=== PATIENT | female | born 1970 | race Caucasian/White ===

== ENCOUNTER → 2017-10-24 08:00 | Outpatient (CLI) | payer OTHER, SELFPAY ==
--- NOTE | 2017-10-24 08:06 | US_ITS ---
STUDY: ABDOMINAL ULTRASOUND - RIGHT UPPER QUADRANT REASON FOR VISIT: Female, 47 years old. Fatty infiltration of the liver. TECHNIQUE: Ultrasound evaluation of the right upper quadrant was performed with real-time and static edwards-scale imaging. TECHNICAL QUALITY: Adequate. COMPARISON: Comparison is made with prior study dated October 16, 2014. FINDINGS: Liver: The liver measures 15 point cm. There is increased echogenicity consistent with fatty infiltration. The bile ducts are within normal limits. There is hepatic color flow. The direction of portal flow is hepatopetal. There is no demonstrated mass lesion. Gallbladder: Normal distended gallbladder. The gallbladder wall measures 3.0 mm. There is a negative sonographic Todd's sign. There is no pericholecystic fluid. There are no gallstones. Common Bile Duct (C.B.D.): The common bile duct measures 3.9 mm. Pancreas: There is nonvisualization of the pancreas due to overlying bowel gas. Right Kidney: Normal size of the right kidney. The right kidney measures 10.9 cm x 6.0 cm x 5.1 cm. Normal renal cortex. The right cortex measures 1.2 cm. There is a 1.2 cm x 1.1 cm x 1.2 cm renal cyst. There is no right hydronephrosis. US/Liver IMPRESSION: Fatty infiltration of the liver. Electronically Signed: Adin Marshall MD at 15:26 EDT Tel [phone], Service support ,
--- NOTE | 2017-10-24 08:06 | US_ITS ---
STUDY: THYROID ULTRASOUND REASON FOR EXAM: Female, 47 years old. History of thyroid nodule. TECHNIQUE: Ultrasound evaluation of the thyroid was performed with real-time and static edwards-scale imaging. COMPARISON: Comparison is made with prior study dated September 08, 2016 and June 05, 2015. FINDINGS: RIGHT LOBE: The right lobe of the thyroid gland is enlarged and measures 6.4 cm x 2.3 cm x 2.1 cm. There is a heterogeneous echotexture. There is a 1.1 cm x 0.9 cm x 0.9 cm hypoechoic solid nodule in the midportion of the right lobe. LEFT LOBE: The left lobe of the thyroid gland is enlarged and measures 5.0 cm x 2.4 cm x 1.7 cm. There is a heterogeneous echotexture. There is a 1.9 cm x 1.3 cm x 0.8 cm solid nodule in the upper pole this is unchanged. ISTHMUS: The isthmus measures 5.0 mm. The regional lymph nodes are normal. US/Thyroid IMPRESSION: Enlargement of the thyroid gland. Heterogeneous echotexture. Stable bilateral thyroid nodule. Electronically Signed: Adin Marshall MD at 15:28 EDT Tel [phone], Service support ,
== END ==
PROVIDERS: Family Provider Internal Medicine; PCP Internal Medicine; Visit Provider Internal Medicine
DX: E04.1 Nontoxic single thyroid nodule (principal); K76.0 Fatty (change of) liver, not elsewhere classified
CPT/HCPCS: 76536; 76705

== ENCOUNTER 2018-02-26 22:27 | Emergency (ER) | payer OTHER, SELFPAY ==
[2018-02-26 22:29] VITALS: BP 136/89; PULSE 60; RESP 15; TEMP 36.8; O2SAT 98; BMI 29.9
[2018-02-26 22:51] LABS: Bacteria 0 SEEN /hpf (None Seen); Mucous, Urine 0 SEEN /hpf (<or=2+); Red Blood Cells-Urine 0 SEEN /hpf (0-5)
[2018-02-26 22:53] LABS: Color, Urine Yellow (Yellow); Glucose, Dipstick Normal (Normal); Ketone-Dipstick 5 mg/dl (Negative); Leukocyte Esterase-Dipstick 25 /ul (Negative); Nitrite-Dipstick Negative (Negative); Occult Blood-Urine 150 /ul (Negative); Protein-Dipstick 15 mg/dl (Negative); Specific Gravity, Urine 1.015 (1.002-1.030); Urine Bilirubin Dipstick Negative (Negative); Urine Clarity Clear (Clear); Urine Urobilinogen 1 mg/dl (Normal); Urine pH 6.5 (5.0 - 8.0)
[2018-02-26 23:05] LABS: Squamous Epithelial Cells - UA 5-10 SEEN /hpf (5-10); White Blood Cells 0-5 SEEN /hpf (0-5)
[2018-02-26 23:55] LABS: Pregnancy, Serum, hCG Quali. NEGATIVE Negative (0-9 Nonpreg)
--- NOTE | 2018-02-27 00:07 | CT_ITS ---
STUDY: CT ABDOMEN AND PELVIS WITHOUT CONTRAST REASON FOR EXAM: Female, 47 years old. Bilateral flank pain. RADIATION DOSAGE (If Supplied By Facility): CTDIvol = ( 10.50 ) mGy, DLP = ( 529.75 ) mGycm TECHNIQUE: Transaxial images were obtained from the dome of the diaphragm to the symphysis pubis without oral contrast, and without intravenous contrast. Sagittal and coronal images were reconstructed. Individualized dose optimization techniques were used for this CT. COMPARISON: July 31, 2013. Right upper quadrant ultrasound October 24, 2017. FINDINGS: The visualized lung bases are unremarkable. The visualized portions of the heart are within normal limits. Small hiatal hernia. Normal liver. The liver demonstrates normal attenuation. CT is more accurate and less subjective than ultrasound for identifying hepatic steatosis. The dome of the right lobe under the hemidiaphragm not included on the study. Normal gallbladder and extrahepatic biliary system. Normal spleen. Normal pancreas. Normal bilateral adrenal glands. Scattered 1 to 2 mm nonobstructing renal calculi mid pole of both kidneys. Normal visualized stomach. Normal small intestine. Normal colon. The appendix is well visualized and appears normal. Normal abdominal aorta. Normal inferior vena cava. Normal retroperitoneum. No intra-abdominal free air. Normal urinary bladder. Uterus grossly normal. No adnexal masses seen. Normal abdominal wall. Normal osseous structures. CT/Abdomen/Pelvis without Cont IMPRESSION: Very small bilateral nonobstructing renal calculi. Normal liver without evidence of fatty alteration. Dome of the right lobe not included. Small hiatal hernia. Electronically Signed: Lamin Ly MD at 2:41 EDT , Service support ,
[2018-02-27 00:25] LABS: Absolute Lymphocyte Count 3.71 X10^3/ul (0.83-4.51); Absolute Neutrophil Count 4.4 X10^3/uL (2.0-7.7); Basophil# 0.05 X10^3/uL; Basophil% 0.5 % (0-1); Eosinophil# 0.23 X10^3/uL; Eosinophils% 2.5 % (0-5); Hematocrit 33.3 % (37-47); Hemoglobin 10.3 g/dl (12.0-15.0); Lymphocyte # 3.71 X10^3/ul (4.0); Lymphocyte % 40.5 % (19-41); Mean Corp Hgb Conc 30.9 g/gl (32-36); Mean Corpuscular Hgb 23.2 pg (27.0-32.0); Mean Platelet Vol. 10.5 fl (6.2-12.0); Monocyte# 0.78 X10^3/uL; Monocyte% 8.5 % (0-10); Neutrophil # 4.37 X10^3/uL (2.7-7.7); Neutrophil % 47.8 % (47-70); Platelet Count 327 K/mm3 (150-450); RBC Distribution Width SD 47.7 fl (35.1-43.9); Red Blood Count 4.44 M/mm3 (4.2-5.4); White Blood Count 9.2 K/mm3 (4.4-11.0)
[2018-02-27 00:26] LABS: POSITIVE COUNT NO; POSITIVE DIFFERENTIAL NO; POSITIVE MORPHOLOGY NO
[2018-02-27 00:27] LABS: Anion Gap 8 (5-15); BUN 18 mg/dL (7-18); BUN/Creat Ratio 23.3 RATIO (10-20); Calcium,Total 8.2 mg/dL (8.5-10.1); Chloride 106 mmol/L (98-107); Creatinine, Serum 0.77 mg/dL (0.55-1.02); EST Glomerular Filtration Rate 85 mL/min (>60); Est Glom Filt Rate - Afr Amer 103 mL/min (>60); Estimated Creatinine Clearance 98.72 ml/min; Glucose 101 mg/dL (74-106); Potassium 4.3 mmol/L (3.5-5.1); Sodium Level 139 mmol/L (136-145)
[2018-02-27] MEDS: Ondansetron 4 MG/2 ML Vial IV (00:40)
[2018-02-27] MEDS: 0.9% Normal Saline 1,000 ML 250 ML IV (00:40)
[2018-02-27] MEDS: Ketorolac 30 MG/ML Syringe IV (00:40)
[2018-02-27 00:41] VITALS: RESP 14
[2018-02-27] MEDS: Morphine 4 MG/ML Syringe IV (01:14)
[2018-02-27] MEDS: HYDROmorphone 0.5 MG/0.5 ML SYRINGE IV (02:43)
--- NOTE | 2018-02-27 02:49 | ED.DCSUM_ITS ---
- ER Visit Summary Date of Service: 02/27/18 Chief Complaint: Flank pain History of Present Illness: The patient is a 47 F with bilateral flank pain, right worse than left over the past several days. Patient states she has had some mild dysuria and hematuria. She has had some chills but no fever. She does have a history of kidney stones. Physical Examination: Vital signs are unremarkable. Patient is sitting upright in bed no acute distress. Head neck examination is unremarked Heart is regular rate and rhythm. Lung sounds are clear. Abdomen is soft with no focal tenderness. Back examination was no CVA tenderness. She does have reproducible tenderness in the bilateral lower lumbar paraspinals. Test Results: CBC and chemistry studies are significant only for hemoglobin 10.3. Urinalysis shows 150 blood on macroscopic examination, but 0 RBCs on microscopic exam. Patency test is negative. CT flank shows very small bilateral nonobstructing renal calculi. Small hiatal hernia is noted. Emergency Department Course and Treatment: Patient was given Toradol, morphine, followed by dose of Dilaudid. Test results are discussed with her at length. She may have recently passed a stone, but this time I see no sign of obstructing stone or hydronephrosis. Should be treated with analgesics and will follow up with Dr. Flores as needed. Treatment Plan: [] Disposition: Discharge Impression: Flank pain, uncertain etiology This note was generated with [employer] dictation software. It may contain incorrect words, spelling, and punctuation that were not noted in review of the chart prior to signing ED Disposition - Plan for ED Patient: Disposition: Home or Assisted Living Chief Complaint: Flank Pain Instructions: ED Flank Pain Uncertain Cause Prescriptions: Hydrocodone Bitart/Apap 5-325 [[place] 5MG-325MG] 1 tablet PO Q4H PRN PRN 2 Days # 10 tablet PRN Reason: Pain Ketorolac [Toradol] 10 mg PO Q6H PRN #14 tablet PRN Reason: Pain Referrals: Diana Watt DO [Primary Care Provider] - Laureano Flores MD [STAFF PHYSICIAN] - As Needed
--- NOTE | 2018-02-27 02:49 | ED.DEP ---
ED Disposition - Plan for ED Patient: Disposition: Home or Assisted Living Chief Complaint: Flank Pain Instructions: ED Flank Pain Uncertain Cause Prescriptions: Hydrocodone Bitart/Apap 5-325 [[place] 5MG-325MG] 1 tablet PO Q4H PRN PRN 2 Days #10 tablet PRN Reason: Pain Ketorolac [Toradol] 10 mg PO Q6H PRN #14 tablet PRN Reason: Pain Referrals: Diana Watt DO [Primary Care Provider] - Laureano Flores MD [STAFF PHYSICIAN] - As Needed
[2018-02-27 03:05] VITALS: BP 121/61; PULSE 60; RESP 15; O2SAT 95
== END 2018-02-27 03:06 | disposition home or self-care (01) ==
PROVIDERS: Emergency Provider Emergency Medicine; Family Provider Internal Medicine; PCP Internal Medicine
DX: R10.9 Unspecified abdominal pain (principal); N20.0 Calculus of kidney; K44.9 Diaphragmatic hernia without obstruction or gangrene; Z87.442 Personal history of urinary calculi
CPT/HCPCS: 74176; 80048; 81001; 84703; 85025; 96361; 96374; 96375; 99283; J7030; A4216; J2405

== ENCOUNTER → 2019-03-12 07:48 | Outpatient (CLI) | payer OTHER, SELFPAY ==
--- NOTE | 2019-03-12 07:51 | US_ITS ---
STUDY: THYROID ULTRASOUND REASON FOR EXAM: Female, 48 years old. Nodule TECHNIQUE: Ultrasound evaluation of the thyroid was performed with real-time and static edwards-scale imaging. COMPARISON: October 24, 2017 ultrasound thyroid FINDINGS: RIGHT LOBE: The right lobe of the thyroid gland measures 6.0 x 2.1 x 2.0 cm. There is a heterogeneous echotexture. There are multiple small nodules seen throughout the right side thyroid gland. There is a avascular dominant-appearing nodule that measures 7.2 x 6.3 x 7.7 mm. LEFT LOBE: The left lobe of the thyroid gland measures 5.2 x 1.9 x 1.9 cm cm. There is a heterogeneous echotexture. Multiple small nodules seen throughout the left thyroid gland. There is a larger nodule without significant internal vascularity measuring approximately 9.6 x 5.5 mm. ISTHMUS: The isthmus measures 5.7 mm. . The regional lymph nodes are normal. Compared to prior study there is little interval change. The right lower hypoechoic nodule and area is stable. On the left side there is a measurement of 1.1 x 0.5 cm which is also similar to today's study. US/Thyroid IMPRESSION: Stable thyroid goiter with multiple small nodules with measurements of the most apparent small nodules or areas that are stable since prior study. Electronically Signed: Leandra Ibarra MD at 16:59 EDT Tel , Service support ,
--- NOTE | 2019-03-12 07:51 | US_ITS ---
STUDY: ABDOMINAL ULTRASOUND - RIGHT UPPER QUADRANT REASON FOR VISIT: Female, 48 years old fatty liver TECHNIQUE: Ultrasound evaluation of the right upper quadrant was performed with real-time and static edwards-scale imaging. TECHNICAL QUALITY: Adequate. COMPARISON: February 27, 2018 CT scan abdomen and pelvis, October 16, 2014 right upper quadrant ultrasound. FINDINGS: Liver: The liver measures 18.2 cm. There is minimal increased echogenicity consistent with fatty infiltration. The bile ducts are within normal limits. There is hepatic color flow. The direction of portal flow is hepatopetal. There is no demonstrated mass lesion. Gallbladder: Normal distended gallbladder. The gallbladder wall measures 2.0 mm. There is a negative sonographic Todd's sign. There is no pericholecystic fluid. There are no gallstones. Common Bile Duct (C.B.D.): The common bile duct measures 3.6 mm. Pancreas: Normal size of the head, of the pancreas. There is normal echogenicity of the pancreas. There is no demonstrated pancreatic mass or cyst. The body and tail of pancreas obscured. Right Kidney: Normal size of the right kidney. The right kidney measures 11.0 x 6.0 x 5.7 cm. Normal renal cortex. The right cortex measures 1.6 cm. There is a stable right renal cyst measuring 1.3 x 0.9 x 1.0 cm. There is no right hydronephrosis. Is visualized 4 x 5 x 4 mm calcification. US/Liver IMPRESSION: Mildly enlarged liver. Minimal evidence of hepatic steatosis. 4 mm stone right kidney, no evidence of hydronephrosis. Several right renal cysts. No evidence of gallstones or evidence of cholecystitis. Electronically Signed: Leandra Ibarra MD at 17:52 EDT Tel , Service support ,
--- NOTE | 2019-03-12 07:52 | BI_ITS ---
MAMMOGRAPHY - BILATERAL SCREENING REASON FOR EXAM: Female, 48 years old. Routine annual screening examination. PERTINENT HISTORY: Mother with breast cancer. Aunt with breast cancer. TECHNIQUE: Digital bilateral breast faith (3D mammographic acquisition) in the CC and MLO projections. 2-D mediolateral oblique (MLO) and craniocaudad (CC) views of both breasts were obtained. CAD: Full Field Digital Mammography with Computer Added Detection was performed. COMPARISON: Comparison is made with prior study dated September 21, 2016 and August 06, 2014. FINDINGS: Breast Composition: The breasts are heterogeneously dense, which may obscure small masses. There are no dominant masses or suspicious calcifications. No other significant abnormalities are identified. There has been no significant change since the prior study. BI/SCREEN MAMM (CAD) W/FAITH BILAT IMPRESSION: Stable bilateral screening mammogram. Yearly follow-up mammogram recommended. (A) ASSESSMENT CATEGORY: BIRADS Category 1: Negative. A letter regarding these results will be sent to the patient by the facility within 30 days. Approximately 10% of breast cancers are not detected by mammography. A normal mammogram should not delay biopsy of a clinically suspicious abnormality. [id number] Electronically Signed: Adin Marshall, at 12:32 EDT , Service support ,
== END ==
PROVIDERS: Family Provider Internal Medicine; PCP Internal Medicine; Referring Provider Internal Medicine; Visit Provider Internal Medicine
DX: E04.1 Nontoxic single thyroid nodule (principal); K76.0 Fatty (change of) liver, not elsewhere classified; Z12.31 Encounter for screening mammogram for malignant neoplasm of breast
CPT/HCPCS: 76536; 76705; 77063; 77067

== ENCOUNTER → 2019-04-12 11:19 | Outpatient (CLI) | payer OTHER, SELFPAY ==
--- NOTE | 2019-04-12 11:20 | US_ITS ---
STUDY: RENAL ULTRASOUND - COMPLETE REASON FOR EXAM: Female, 48 years old. Renal cyst. TECHNIQUE: Ultrasound evaluation of the kidneys was performed with real-time and static earl-scale imaging. COMPARISON: Comparison is made with prior examination dated March 12, 2019. FINDINGS: RIGHT KIDNEY: Normal location of the right kidney, which is normal in size. The right kidney measures 11.1 cm x 5.7 Sal by 5.6 cm. There is a normal cortex of the right kidney. The renal cortex measures 1.7 cm. 2 renal cysts are seen. The larger measures 1.0 cm x 0.9 cm x 1 cm. There are no right renal calculi. There is an extra-renal pelvis of the right kidney. There is no distention of the renal calyces. DISTAL RIGHT URETER: There is non-visualization of the distal right ureter. There is no demonstrated right ureterovesical junction calculus. There is a visualized right ureteral jet. LEFT KIDNEY: Normal location of the left kidney, which is normal in size. The left kidney measures 13.2 cm x 4.8 cm x 5.4 cm. There is a normal cortex of the left kidney. The renal cortex measures 1.7 cm. There is a 1.8 cm x 1.4 cm x 1.8 cm cyst. There are no left renal calculi. There is no left hydronephrosis. DISTAL LEFT URETER: There is non-visualization of the distal left ureter. There is no demonstrated left ureterovesical junction calculus. There is a visualized left ureteral jet. BLADDER: The distended urinary bladder has a volume of 342 ml. There is a normal wall thickness of the distended urinary bladder. There is no demonstrated mass within the urinary bladder. There are no demonstrated bladder calculi. US/Kidney and Bladder IMPRESSION: Bilateral renal cysts. Right extrarenal pelvis. Electronically Signed: Adin Marshall, at 10:01 EDT , Service support ,
== END ==
PROVIDERS: Family Provider Internal Medicine; PCP Internal Medicine; Referring Provider Internal Medicine; Visit Provider Internal Medicine
DX: Q61.02 Congenital multiple renal cysts (principal)
CPT/HCPCS: 76770

== ENCOUNTER → 2019-08-20 08:10 | Outpatient (CLI) | payer OTHER, SELFPAY ==
--- NOTE | 2019-08-20 08:25 | RAD_ITS ---
STUDY: X-RAY - ESOPHAGUS (BARIUM SWALLOW) WITH FLUOROSCOPY REASON FOR EXAM: Female, 49 years old. OROPHARYNGEAL DYSPHAGIA TECHNIQUE: 22 view(s) of the esophagus were obtained following swallowing of barium. FLUOROSCOPY TIME (if supplied): (0:34) minutes/seconds COMPARISON: None. FINDINGS: There is no demonstrated esophageal foreign body. There is no demonstrated stricture or mucosal abnormality. Normal gastroesophageal junction, without a demonstrated hiatal hernia. The patient ingested a 12 mm tablet of barium without difficulty. Normal visualized aortic arch and descending thoracic aorta. Normal visualized pulmonary parenchyma. Normal visualized osseous structures of the thorax. RAD/Esophagus Single Contrast IMPRESSION: Normal plain film x-ray examination (barium swallow) of the esophagus. Electronically Signed: Adin Marshall, at 14:53 EDT , Service support ,
== END ==
PROVIDERS: PCP Internal Medicine; Referring Provider Internal Medicine; Visit Provider Internal Medicine
DX: R13.12 Dysphagia, oropharyngeal phase (principal)
CPT/HCPCS: 74220

== ENCOUNTER 2019-08-23 06:55 | Day surgery (SDC) | payer OTHER, SELFPAY ==
[2019-08-22 08:55] VITALS: BMI 29.9
--- NOTE | 2019-08-22 09:03 | HP_ITS ---
Intake Vital Signs 08/22/19 BMI 29.9 08/22/19 Height 5 ft 10.25 in 08/22/19 Weight: 202 lb 8 oz 08/22/19 BMI 28.8 08/22/19 BP 131/80 H 08/22/19 Blood Pressure Location Rt brachial 08/22/19 Position Sitting 08/22/19 Respiration 18 08/22/19 Pulse 80 08/22/19 Pulse Oximetry (%) 99 Intake Visit Reasons: Lipoma Back Chief Complaint: back lump Child And Adolescent Psychologist Required: No Is patient in pain?: No Allergies No Known Allergies Allergy (Verified 08/22/19 08:53) Medications buspirone 15 mg tablet mg PO 08/22/19 [History Confirmed 08/22/19] cholecalciferol (vitamin D3) 2,000 unit chewable tablet 2,000 unit PO DAILY 08/22/19 [History Confirmed 08/22/19] duloxetine 60 mg capsule,delayed release mg PO 08/22/19 [History Confirmed 08/22/19] levothyroxine 50 mcg tablet tab PO 08/22/19 [History Confirmed 08/22/19] naproxen sodium 220 mg capsule 220 mg PO BID PRN 08/22/19 [History Confirmed 08/22/19] trazodone 50 mg tablet tab PO 08/22/19 [History Confirmed 08/22/19] Is last menstrual period known: No Post menopausal: No Patient : No PFSH Medical History Hypothyroid (Acute) Back pain (Acute) GERD (gastroesophageal reflux disease) (Acute) Anxiety (Acute) Surgical History History of lithotripsy (Acute) Family History Mother Heart disease Thyroid disorder Breast cancer Aunt Breast cancer Social History (Updated 08/22/19 @ 09:[address] Henry Fontaine MD) Smoking Status: Never smoker HPI HPI HPI: KERWIN STARKS, is a 49 F who presents to the office today for HPI HPI Surgical H&P: Yes HPI: KERWIN STARKS, is a 49 F who presents to the office today for Painful subcutaneous lesion to her back. Patient has had a lower lump in her lower back area that is been increasing over the last several years. She has had numerous trips down to [place] and has been noticing that pressure on this area has caused increased discomfort. She cannot recall any trauma to the area and nothing is been infected back there. ROS General General: Yes fatigue; no weight change, appetite, colon cancer, breast cancer or weakness HEENT HEENT: Yes difficulty swallowing; no eye injury, eye surgery, swollen glands or hoarseness Endo Endocrine: No thyroid disease, diabetes mellitus, thyroid cancer, Hair loss, heat intolerance or cold intolerance Musc Musculoskeletal: Yes back problems; no arthritis, rheumatoid arthritis, gout or joint pain Cardio Cardiovascular: No murmur, pacemaker, heart disease, atrial fibrillation, high blood pressure, heart attack, heart stent, palpitations, shortness of breat with exertion or chest pain Psych Psychiatric: Yes anxiety; no depression or hearing voices Resp Respiratory: No shortness of breath, No sleep apnea, No cough, No COPD, No asthma, No emphysema, No wheezing Gastro Gastrointestinal: No abdominal pain, No nausea or vomiting, No diarrhea, No constipation, No blood in stool, Yes acid reflux, No hemorrhoids, No ulcers, No gallbladder problem, No black,tarry stools Wilmer Hematologic: No blood thinners, No blood disorders, No bleeding, No anemia, No blood clots Neuro Neurologic: No weakness Exam Const General: no acute distress, well developed, well hydrated Orientation: oriented to person, oriented to place, oriented to time [facility] Head: normocephalic, atraumatic Ears: external ears normal Mouth: moist mucous membranes Eyes Sclera: sclerae normal Pupils: normal by confrontation Neck Neck: no lymphadenopathy noted Neck mass: No Thyroid: thyroid normal, symmetrical Chest Chest palpation & inspection: normal inspection of the chest Resp Effort & Inspection: normal respiratory effort Auscultation: clear to auscultation bilaterally Percussion: percussion normal Cardio Rate: regular rate Rhythm: regular rhythm Heart Sounds: no murmurs GI Palpation: soft, no hepatosplenomegaly, no masses, nontender Rectal Exam: other Other: Rectal exam deferred. Skin Other: Lower back there is a 2-1/2 cm to 3 cm subcutaneous lesion very mobile but right along the midline just to the left side. It does not appear to be subfascial but it is certainly not superficial. It is nontender and shows no signs of infection. Extrem General: normal to inspection, no clubbing, cyanosis or edema Assessment & Plan Problems 1. Lesion of subcutaneous tissue L98.9 Plan My plan will be to excise this in the OR. Plan to do an excision of Lower back subcutaneous neoplasm. Reviewed the procedure with the patient including risks, including but not limited to infection, bleeding, paresthesia of skin near the excision and seroma. All questions were answered. Coding Level of Care Code Off vis,new,level 3 Diagnoses Lesion of subcutaneous tissue L98.9 08/22/19 0903 <Electronically signed by Henry bennett MD> Date _ Henry Fontaine MD I have re-examined the patient. There are no clinical changes since date of exam.
[2019-08-23] VITALS (7 sets, daily range): BP systolic 125–137; BP diastolic 71–81; PULSE 66–72; RESP 14–18; TEMP 36.6–37; O2SAT 96–100; BMI 29.0
[2019-08-23 07:31] LABS: Internal QC Validated? YES +Cl - CLEAR BKGD; Pregnancy, Urine Negative Negative
--- NOTE | 2019-08-23 07:34 | PCM.OPRPT ---
Problem List (1) Lesion of subcutaneous tissue Status: Acute Report of Operation Date of Procedure: 08/23/19 Pre-Operative Diagnosis: Lesion of subcutaneous tissue back Post-Operative Diagnosis: Same Surgery/Procedure Performed:: Excision of a 2 cm subcutaneous lesion to back Type of Anesthesia:: Local MAC Anesthesiologist: Kaden Dasilva Specimen's removed: 2-1/2 cm subcutaneous lesion to back Estimated Blood Loss (mL): < 25 cc Fluids Replaced: 500 cc LR Description of Procedure: Patient was brought in the operating room. Placed in the prone position. Under excellent MAC anesthetic the back was sterilely prepped draped in usual fashion. Local was injected. A transverse incision was made over the lower back area. Dissection down through the subcutaneous tissues all the way down to the paraspinous muscles the fatty lesion was identified. I removed it in its entirety. And sent it to pathology for permanent sectioning. Deep dermal stitches of 3-0 Vicryl then a running 4-0 Monocryl in the skin. Steri-Strips were applied sterile dressings were applied and the patient tolerated the procedure well. - Admit VTE Documentation VTE Present on Admission: No VTE Mechan Device Prophylaxis: SCD's VTE Pharm Prophylaxis ordered?: No Reason prophylaxis not ordered:: Treatment Not Indicated
[2019-08-23] MEDS: Lactated Ringers 1,000 ML 100 ML IV (07:41)
--- NOTE | 2019-08-23 08:35 | PCM.DC.GS ---
Discharge Diet: Light diet - advance as tolerated - If you have questions about your diet instructions, please talk to your doctor. Discharge Activity: May Not Drive - for 1 week or while taking narcotic pain medicine. May shower in (days): 1 Lifting Restrictions: 10 pounds Call your doctor if your incision/area has: Continuous Slow Oozing, Sudden Increased Bleeding, Increased Pain/ Swelling, Increased Redness, Foul Smelling Discharge Call your doctor if you observe: Fever of 101 or Higher Suture Line Care: Avoid Pulling/Pushing, Avoid Pinching/Bending Additional Dressing/Incision Instructions:: Change or remove dressing in 4 days. Leave steri-strips in place for 1 week. Allergies/Adverse Reactions: Allergies No Known Allergies Allergy (Verified 08/22/19 09:32) Medications to take at Discharge Naproxen Sodium [Aleve] 220 mg PO PRN PRN 08/22/19 buspirone 15 mg tablet 15 mg PO PRN PRN 08/22/19 duloxetine 60 mg capsule,delayed release 60 mg PO DAILY 08/22/19 levothyroxine 50 mcg tablet 50 tab PO DAILY 08/22/19 trazodone 50 mg tablet 50 tab PO QHS 08/22/19 Oxycodone HCl/Acetaminophen [Percocet 5/325] 1 - 2 tab PO Q4H PRN PRN 6 Days #30 tab 08/23/19 The following prescriptions were given: Oxycodone HCl/Acetaminophen [Percocet 5/325] 1 - 2 tab PO Q4H PRN PRN 6 Days #30 tab PRN Reason: Pain Transmission Status: Received by [facility] Primary Care Physician: Diana Watt DO [Primary Care Provider] - Test Results: Test results from this visit will be discussed in further detail at your follow-up appointment, if applicable. Please Follow Up With: Julieta Antonio PA-C - [phone] When: Call to make an appointment to be seen in about 10 days.
[2019-08-23] MEDS: Cefazolin 2 GM in 0.9% Normal Saline 100 ML IV (08:41)
[2019-08-23] MEDS: Bupivacaine Mpf 0.5% 30 ML VIAL (08:50)
--- NOTE | 2019-08-23 09:00 | LIP_PTH ---
PATIENT: KERWIN STARKS LOC: [facility] [place] U#:[id number] AGE/SX: 49/F ROOM: RE08/23/[address]: Dr. Henry Fontaine MD : 1970 BED: DIS: 08/23/2019 SPEC #: [id number] RECD: 08/23/19 10:23 STATUS: JUDITH REMendel #: [id number] MALLY: 08/23/19 09:[address]: Henry Fontaine DEPT: SURGICAL PATHOLOGY RECD BY: Giancarlo Canales ENTERED: 08/23/19 10:32 SP TYPE: LIPOMA OTHR DR: Dr. Diana Watt, DO Tissues: Back, NOS Procedures: Surgery Specimen Level III HEADER OPERATION: Excision of lower back subcutaneous neoplasm PRE-OP DIAGNOSIS: Lesion of subcutaneous tissue L98.9 TISSUE SUBMITTED: Lipoma of back MICROSCOPIC DIAGNOSIS Lipoma of back, excision: Mature adipose tissue, consistent with lipoma. SJ:braydon 08/24/19 MICROSCOPIC DESCRIPTION Slides are reviewed. GROSS DESCRIPTION Received in fixative is one container labeled with the patient's name and designated lipoma of back. The specimen consists of an ovoid fragment of yellow fatty tissue measuring 2.5 x 2.2 c 1 cm. Serial sections reveal homogenous yellow cut surfaces with areas of cyst formation, necrosis of myxoid change. Parent Coach sections are submitted in one cassette. / AM:braydon 08/23/19 TC:1 CPT: 74853
== END 2019-08-23 10:05 | disposition home or self-care (01) ==
LOC: SDC 06:56 → AC 06:57
PROVIDERS: Anesthesiology; PCP Internal Medicine; Referring Provider Surgery; Visit Provider Surgery
PROC: (CPT 11402; principal; 2019-08-23 08:45)
DX: L98.9 Disorder of the skin and subcutaneous tissue, unspecified (principal); E03.9 Hypothyroidism, unspecified; K21.9 Gastro-esophageal reflux disease without esophagitis; F41.9 Anxiety disorder, unspecified; Z86.2 Personal history of diseases of the blood and blood-forming organs and certain disorders involving the immune mechanism; Z79.899 Other long term (current) drug therapy
CPT/HCPCS: 11402; 81025; 88304; J7120

== ENCOUNTER → 2020-11-20 07:30 | Outpatient (CLI) | payer OTHER, SELFPAY ==
[2019-08-23 07:21] VITALS: BMI 29.0
--- NOTE | 2020-11-20 07:35 | US_ITS ---
STUDY: ABDOMINAL ULTRASOUND - RIGHT UPPER QUADRANT REASON FOR VISIT: Female, 50 years old FATTY LIVER TECHNIQUE: Ultrasound evaluation of the right upper quadrant was performed with real-time and static edwards-scale imaging. TECHNICAL QUALITY: Adequate. COMPARISON: Comparison is made with prior examination dated 03/12/2019. FINDINGS: Liver: The liver is mildly enlarged and measures 18.9 cm. There is increased echogenicity consistent with fatty infiltration. The bile ducts are within normal limits. There is hepatic color flow. The direction of portal flow is hepatopetal. There is no demonstrated mass lesion. Gallbladder: Normal distended gallbladder. The gallbladder wall measures 1 mm. There is a negative sonographic Todd''s sign. There is no pericholecystic fluid. There are no gallstones. Common Bile Duct (C.B.D.): The common bile duct measures 5 mm. Pancreas: Normal size of the head, body and tail of the pancreas. There is normal echogenicity of the pancreas. There is no demonstrated pancreatic mass or cyst. Right Kidney: Normal size of the right kidney. The right kidney measures 11.1 cm x 5.7 cm x 4.6 cm. Normal renal cortex. The right cortex measures 1.1 cm. There is a 1.2 cm x 1 cm by 1.1 cm renal cyst. This is unchanged. There is evidence of a 4 mm x 2 mm nonobstructive calculus. There is no right hydronephrosis. US/Liver IMPRESSION: Mild hepatomegaly and fatty infiltration of the liver. Stable small right renal cyst in the right nonobstructive intrarenal calculus. Electronically Signed: Adin Marshall MD at 9:46 EDT , Service support ,
--- NOTE | 2020-11-20 07:35 | BI_ITS ---
MAMMOGRAPHY - BILATERAL SCREENING REASON FOR EXAM: Female, 50 years old. Routine annual screening examination. PERTINENT HISTORY: Mother with breast cancer. Aunt with breast cancer. TECHNIQUE: Digital bilateral breast faith (3D mammographic acquisition) in the CC and MLO projections. 2-D mediolateral oblique (MLO) and craniocaudad (CC) views of both breasts were obtained. CAD: Full Field Digital Mammography with Computer Added Detection was performed. COMPARISON: Comparison is made with prior study dated 03/12/2019 and 09/21/2016. FINDINGS: Breast Composition: The breasts are heterogeneously dense, which may obscure small masses. There are no dominant masses or suspicious calcifications. Stable 7.4 mm well-defined nodule in the axillary region of the right breast. This most likely represents a small lymph node. No other significant abnormalities are identified. There has been no significant change since the prior study. BI/SCRN MAMM (CAD)W/FAITH BILAT IMPRESSION: Stable bilateral screening mammogram. Yearly follow-up mammogram recommended. (A) ASSESSMENT CATEGORY: BIRADS Category 2: Benign. A letter regarding these results will be sent to the patient by the facility within 30 days. Approximately 10% of breast cancers are not detected by mammography. A normal mammogram should not delay biopsy of a clinically suspicious abnormality. [id number] Electronically Signed: Adin Marshall MD at 8:53 EDT , Service support ,
--- NOTE | 2020-11-20 07:35 | US_ITS ---
STUDY: THYROID ULTRASOUND REASON FOR EXAM: Female, 50 years old. NODULE TECHNIQUE: Ultrasound evaluation of the thyroid was performed with real-time and static edwards-scale imaging. COMPARISON: Comparison is made with prior study dated 03/12/2019. FINDINGS: RIGHT LOBE: The right lobe of the thyroid gland is enlarged and measures 5.9 cm x 2.2 cm x 1.9 cm. There is a heterogeneous echotexture. Several small nodules are seen. The largest nodule is in the mid lobe of the thyroid measuring 7 mm x 8 mm x 5 mm. This is essentially unchanged. LEFT LOBE: The left lobe of the thyroid gland is enlarged and measures 5.3 cm x 1.9 cm x 1.8 cm. There is a heterogeneous echotexture. Multiple small nodules are seen. The largest nodule measures 4 mm x 6 mm x 1 mm. This has decreased in size. ISTHMUS: The isthmus measures 5 mm. The regional lymph nodes are normal. US/Thyroid IMPRESSION: Thyroid enlargement. Heterogeneous appearance of both lobes of the thyroid gland. Subcentimeter nodules seen in both lobes of the thyroid gland. Electronically Signed: Adin Marshall MD at 10:46 EDT , Service support ,
== END ==
PROVIDERS: PCP Internal Medicine; Referring Provider Internal Medicine; Visit Provider Internal Medicine
DX: Z12.31 Encounter for screening mammogram for malignant neoplasm of breast (principal); E04.1 Nontoxic single thyroid nodule; K76.0 Fatty (change of) liver, not elsewhere classified
CPT/HCPCS: 76536; 76705; 77063; 77067

== ENCOUNTER 2021-06-02 14:21 | Outpatient (CLI) | payer OTHER, SELFPAY ==
[2021-06-02 14:41] VITALS: BP 146/80; PULSE 61; RESP 16; TEMP 36.9; O2SAT 98; BMI 27.9
[2021-06-02] MEDS: 0.9% Saline Lock 10 ML Syringe IV (14:44)
[2021-06-02 15:42] VITALS: BP 136/75; PULSE 75; RESP 16; TEMP 37; O2SAT 98
[2021-06-02 16:23] VITALS: BP 128/76; PULSE 62; RESP 16; TEMP 36.8; O2SAT 100
== END 2021-06-02 16:34 | disposition home or self-care (01) ==
LOC: MS3OUT 14:21 → MS3 14:22
PROVIDERS: PCP Internal Medicine; Referring Provider Nurse Practitioner Adult Health; Visit Provider Nurse Practitioner Adult Health
DX: Z23 Encounter for immunization (principal); U07.1 COVID-19
CPT/HCPCS: J7050; M0245; Q0245; A4216

== ENCOUNTER 2021-06-10 10:19 | Emergency (ER) | payer OTHER, SELFPAY ==
[2021-06-10 10:20] VITALS: BP 132/81; PULSE 69; RESP 20; TEMP 35.9; O2SAT 100; BMI 27.9
--- NOTE | 2021-06-10 11:20 | ED.VIS.DYS ---
HPI History of Present Illness Chief Complaint: Cough Narrative Narrative: 51-year-old female presenting with cough and shortness of breath. She is status post Covid on day 14. She has had dexamethasone therapy and been placed on azithromycin by her primary care physician Dr. Watt. She also had the monoclonal antibodies on day 9 of symptoms. She states she initially felt better but now has a cough and shortness of breath. Last night she had trouble catching her breath. She denies any chest pain. Patient states that she was doing a televisit however she did not have a home pulse ox. The nurse practitioner who is seeing her wanted to call EMS because she was saying she was short of breath. She elected to have her bring her to the emergency room. She has no history of DVT/PE. No risk factors with exception of recent Covid. She does complain of some lower back pain which she believes is from coughing. [facility] Medical History Anxiety Back pain GERD (gastroesophageal reflux disease) Hypothyroid Home Medications duloxetine 60 mg capsule,delayed release 60 mg PO DAILY 08/22/19 [History Last Taken Unknown] levothyroxine 50 mcg tablet 50 tab PO DAILY 08/22/19 [History Last Taken 08/23/19 06:00 50 tab] trazodone 50 mg tablet 50 tab PO QHS 08/22/19 [History Last Taken Unknown] azithromycin [Zithromax] 250 mg PO DAILY 06/02/21 [History Last Taken Unknown] dexamethasone 6 mg PO DAILY 06/02/21 [History Last Taken Unknown] gabapentin 300 mg PO BID 06/02/21 [History Last Taken Unknown] albuterol sulfate [Ventolin HFA] 2 puff INHALATION Q6H PRN #6.7 g 06/10/21 [Rx Last Taken Unknown] promethazine-DM 5 ml PO Q6H PRN #118 ml 06/10/21 [Rx Last Taken Unknown] Allergy/AdvReac Type Severity Reaction Status Date / Time No Known Allergies Allergy Verified 06/10/21 10:31 Family History Mother Heart disease Thyroid disorder Breast cancer Aunt Breast cancer Surgical History History of lithotripsy ROS ROS ED Constitutional Constitutional ED: Denies chills or fever(s) Eyes Eyes: Denies blurry vision or diplopia ENT ENT ED: Denies rhinorrhea or sore throat Cardiovascular Cardiovascular: Denies chest pain or palpitations Respiratory/Chest Respiratory/Chest: Reports cough and dyspnea Gastrointestinal Gastrointestinal: Denies abdominal pain, nausea or vomiting Genitourinary Genitourinary ED: Denies dysuria or hematuria Musculoskeletal Musculoskeletal: Denies arthralgias or myalgias Integumentary Denies abscess or rash Neurologic Neurologic: Denies headache(s) or paresthesias Psychiatric Psychiatric: Denies anxiety or depression EXAM Physical Exam Const Vital Signs: 06/10/21 10:20 Temperature 96.7 F L Temperature Source Temporal Pulse Rate 69 Respiratory Rate 20 H Blood Pressure 132/81 H Blood Pressure Mean 98 Pulse Ox 100 Oxygen Delivery Method Room Air Positive well nourished General Appearance ED: NAD; Negative for pallor HEENT Reports moist mucous membranes atraumatic Eyes PERRL and EOMs intact bilaterally General Eye ED: Negative for pale conjunctiva or scleral icterus Resp normal respiratory effort and clear to auscultation bilaterally Cardio regular rate and regular rhythm Extremity normal to inspection General Extremety ED: Negative for edema or tenderness General Extremity: Negative for edema Neuro CN's II-XII intact bilaterally and no sensory deficits noted Motor Exam: strength 5/5 throughout Psych mental status grossly normal Thought Process: normal thought process Skin General Skin Exam: Negative for jaundice or pallor MDM MDM MDM Narrative Medical decision making narrative: Patient sent in by her primary care physician's nurse practitioner out of concern that she could not see her pulse ox. On arrival patient reports no chest pain. She states she has a cough and some shortness of breath which has been present since he has had Covid. She is not had any new fevers. Her heart rate is 69 and her oxygen saturation is 100. Respiratory rate is 20. She does not look to be in any distress. Lungs are clear to auscultation bilaterally. I had a long discussion with she and her and she feels as if she is doing fine and she does not want any further evaluation. Her was concerned that she might have a pulmonary embolism because he has some knowledge of medicine and her daughter is a nurse at [employer] and told her to make sure that they rule this out. I did offer to do a CTA of the chest if it made her more comfortable however with a heart rate of 69 and an oxygen sat of 100% this would be unlikely especially since he is not significantly tachypneic. She is not having any pleuritic chest pain. The patient herself declined this. Her requested that I give her an albuterol inhaler at home and I did order this as well as cough medicine. Patient was amenable to this plan. She will return as needed for any new or worsening symptoms. Impression: 1. History of COVID-19 Discharge Plan Triage Chief Complaint: Cough ED Provider: Pradeep Redding Dx/Rx/DC Orders Instructions: Coronavirus Disease 2019 (COVID-19): Caring for Yourself or Others Prescriptions: New promethazine-DM 6.25-15 mg/5 mL syrup 5 ml PO Q6H PRN (Reason: cough) Qty: 118 RF: 0 albuterol sulfate [Ventolin HFA] 90 mcg/actuation HFA aerosol inhaler 2 puff inhalation Q6H PRN (Reason: shortness of breath or wheezing) Qty: 6.7 RF: 0 No Action trazodone 50 mg tablet 50 tab PO QHS RF: 0 levothyroxine 50 mcg tablet 50 tab PO DAILY RF: 0 duloxetine 60 mg capsule,delayed release(DR/EC) 60 mg PO DAILY RF: 0 gabapentin 300 mg capsule 300 mg PO BID RF: 0 azithromycin [Zithromax] 250 mg Tablet 250 mg PO DAILY RF: 0 dexamethasone 6 mg Tablet 6 mg PO DAILY RF: 0 Primary Care Provider: Diana Watt Referrals: Diana Watt DO [Primary Care Provider] - Disposition Disposition: Home, Self Care
[2021-06-10 11:38] VITALS: O2SAT 98
== END 2021-06-10 11:51 | disposition home or self-care (01) ==
LOC: ED 11:34
PROVIDERS: Emergency Provider Student in an Organized Health Care Education/Training Program; PCP Internal Medicine
DX: R05.9 Cough, unspecified (principal); R06.02 Shortness of breath; Z86.16 Personal history of COVID-19; E03.9 Hypothyroidism, unspecified; F41.9 Anxiety disorder, unspecified; K21.9 Gastro-esophageal reflux disease without esophagitis; Z79.899 Other long term (current) drug therapy
CPT/HCPCS: 99282

== ENCOUNTER 2021-11-25 13:58 | Outpatient (RCR) | payer OTHER, SELFPAY ==
--- NOTE | 2021-11-25 15:22 | HP.PTEVAL_ITS ---
Patient's Visit Information KERWIN STARKS is a 51 year old F referred to Physical Therapy by Dr. Diana Watt DO with a diagnosis of LBP. Date of Evaluation: 11/25/21 Physical Therapist: Ck Campos PT, Cert MDT, OCS - Visit Plan Frequency: 2x /Week Duration: 4 Weeks Plan: PT INTEREVETIONS REGINA EX'S,PROGRESSION OF DLS ,POSTURAL EX'S AND ACTIVITY MODIFICATION. - Subjective This 51 y/o female presents to physical therapy with low back pain. This has LBP for many years. Seen DR and recommended PT . Patient had no diagnostics in fingers. Patient has had no medication for pain . Patient takes sleep aide at night. Symptoms have been gradually worse. 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 Alleviating rest. Patient denies Bowel/bladder issues . Coughing/sneezing -. Bowel/bladder -. Patient pain affects QOL and function. Patient has had no trauma. Patient has had no diagnostics. SOCIAL: . VOCATION: [employer]. - Pain Bilateral Back Pain Intensity (Out of 10): 8 - Objective POSTURE: increase lumbar lordosis increase thoracic kyphosis. GAIT: reciprocal pattern mild forward posture. PALAPTION: tender LS /buttock. SYMMETRIES: align. MMT: quads/hamstrings 4/5 ,hip flexion 4/5 ,ankle 5/5. FLEXABILITY: hamstrings WFL ,piriformis min. LUMBAR ROM : flexion WFL, extension min loss, side glides min loss. + Signs of muscular endurance test for abdominals - Special Tests L/S Slump test left side: Negative L/S Slump test right side: Negative L/S Left Straight Leg Raise: Negative L/S Right Straight Leg Raise: Negative Lumbar Standing: Flexion - Mechanical Response: No effect Lumbar Standing: Flexion - Symptoms During Testing: Increases Lumbar Standing: Flexion - Symptoms After Testing: No worse Lumbar Standing: Extension - Mechanical Response: No effect Lumbar Standing: Extension - Symptoms During Testing: Increases Lumbar Standing: Extension - Symptoms After Testing: No worse Comments:: ERP Lumbar Standing: Right Side Glides - Mechanical Response: No effect Lumbar Standing: Right Side [place] - Symptoms During Testing: No effect Lumbar Standing: Right Side [place] - Symptoms After Testing: No effect Lumbar Standing: Left Side [place] - Mechanical Response: No effect Lumbar Standing: Left Side [place] - Symptoms During Testing: No effect Lumbar Standing: Left Side [place] - Symptoms After Testing: No effect - Balance/Special Test Scores Oswestry Low Back Score: 15 - Goals Goal 1:: Patient to improve posture/body mechanics 80% of the time. Goal Time Frame: 4-6 Weeks Goal 2:: Patient to demonstrate 60% improvement with function and decrease pain. Goal Time Frame: 4-6 Weeks Goal 3:: Patient to improve lumbar ROM for function of recovery to lift at work. Goal Time Frame: 4-6 Weeks Goal 4:: Patient to improve back oswestry score by 5 points to improve QOL and function. Goal Time Frame: 4-6 Weeks Goal 5:: Patient to perform work demands and housework tasks with min limitations Goal Time Frame: 4-6 Weeks - Rehabilitation Potential Physical Therapy Diagnosis: This patient has lumbar pain with possible derangement ,weakness abdominals with + with muscular endurance, pain with positioning sitting and flexion ,motion testing thus benefit from skilled PT Rehabilitation Potential: Good - Anticipated Interventions Patient/Client Instruction: Educate patient on: Condition, Plan of Care For the Purpose of:: To decrease pain, To increase ROM, To improve muscle performance and motor function, To improve ability to perform ADL's, To increase tolerance to activity/condition/position, To improve ability of physical actions for home/community/work/leisure, To improve health of tissue, To decrease soft tissue restriction, To increase flexibility/ROM, To improve endurance, To prevent re-injury Therapeutic Exercise to Include: Strength training, Body mechanics, Postural t raining, Flexibilty training, Dynamic Lumbar Stabilization For the Purpose of:: To decrease pain, To increase ROM, To improve muscle performance and motor function, To improve ability to perform ADL's, To increase tolerance to activity/condition/position, To improve ability of physical actions for home/community/work/leisure, To increase flexibility/ROM, To reduce risk of recurrence, To prevent re-injury Thank you for the opportunity to evaluate your patient. For Medicare and Medicare HMO plans, please review the plan of care and approve it. It will need to be FAXED BACK to us at [phone] for Medicare purposes. For Medicare only, by signing this I certify the plan of care. Please let me know if there are questions or concerns regarding this plan of care. Physician Signature: Date:
== END 2021-11-25 19:00 | disposition home or self-care (01) ==
LOC: PT 13:58
PROVIDERS: PCP Internal Medicine; Referring Provider Internal Medicine; Visit Provider Internal Medicine
DX: M54.50 Low back pain, unspecified (principal)
CPT/HCPCS: 97110; 97162

== ENCOUNTER → 2021-11-26 | Outpatient (CLI) | payer OTHER, SELFPAY ==
--- NOTE | 2021-11-26 08:00 | US_ITS ---
STUDY: ABDOMINAL ULTRASOUND - RIGHT UPPER QUADRANT REASON FOR VISIT: Female, 51 years old FATTY LIVER TECHNIQUE: Ultrasound evaluation of the right upper quadrant was performed with real-time and static edwards-scale imaging. TECHNICAL QUALITY: Adequate. COMPARISON: None. FINDINGS: Liver: The liver is mildly enlarged and measures 18.1 cm. There is increased echogenicity consistent with mild degree of fatty infiltration. The bile ducts are within normal limits. There is hepatic color flow. The direction of portal flow is hepatopetal. There is no demonstrated mass lesion. Gallbladder: Normal distended gallbladder. The gallbladder wall measures 1.8 mm. There is a negative sonographic Todd''s sign. There is no pericholecystic fluid. There are no gallstones. Common Bile Duct (C.B.D.): The common bile duct measures 3.5 mm. Pancreas: Normal size of the head, body and tail of the pancreas. There is normal echogenicity of the pancreas. There is no demonstrated pancreatic mass or cyst. Right Kidney: Normal size of the right kidney. The right kidney measures 11.4 cm x 6.8 cm x 4 cm. Normal renal cortex. The right cortex measures 1.2 cm. There is a 9 mm x 9 mm x 6 mm cyst. There is no right hydronephrosis. Nonobstructive 4 mm x 3 mm x 3 mm calculus. US/Abdomen Limited IMPRESSION: Mild hepatomegaly and fatty infiltration of the liver. Small right renal cyst and small nonobstructive right intrarenal calculus. Electronically Signed: Adin Marshall MD at 10:27 EDT ,
--- NOTE | 2021-11-26 08:00 | US_ITS ---
STUDY: THYROID ULTRASOUND REASON FOR EXAM: Female, 51 years old. Thyroid nodule. TECHNIQUE: Ultrasound evaluation of the thyroid was performed with real-time and static edwards-scale imaging. COMPARISON: Comparison is made with prior study dated 11/20/2020 03/12/2019. FINDINGS: RIGHT LOBE: The right lobe of the thyroid gland is enlarged measures 5.7 cm x 2 cm x 2.2 cm. There is a heterogeneous echotexture. There is a 6 mm x 7 mm x 5 mm hypoechoic solid nodule in the midpole of the right lobe. LEFT LOBE: The left lobe of the thyroid gland is enlarged and measures 5.4 cm x 2.1 cm x 1.9 cm. There is a heterogeneous echotexture. There is a solid/cystic hypoechoic nodule measuring 1.1 cm x 0.7 cm x 0.3 cm in the midpole. ISTHMUS: The isthmus measures 6 mm. The regional lymph nodes are normal. US/Thyroid IMPRESSION: Enlarged heterogeneous appearance of the thyroid gland with the dominant solid cystic nodule in the midpole of the left lobe measuring 1.1 cm x 0.7 cm x 0.3 cm. Electronically Signed: Adin Marshall MD at 10:44 EDT ,
== END | disposition home or self-care (01) ==
PROVIDERS: PCP Internal Medicine; Referring Provider Internal Medicine; Visit Provider Internal Medicine
DX: E04.1 Nontoxic single thyroid nodule (principal); K76.0 Fatty (change of) liver, not elsewhere classified; R20.2 Paresthesia of skin
CPT/HCPCS: 76536; 76705

== ENCOUNTER 2022-01-25 18:35 | Emergency (ER) | payer OTHER, SELFPAY ==
[2022-01-25 18:36] VITALS: BP 136/89; PULSE 67; RESP 18; TEMP 35.8; O2SAT 97; BMI 27.9
[2022-01-25 18:52] LABS: Mucous, Urine 0 SEEN /hpf (<or=2+)
[2022-01-25 19:04] LABS: Color, Urine Straw (Yellow); Glucose, Dipstick Normal (Normal); Ketone-Dipstick Negative (Negative); Leukocyte Esterase-Dipstick 100 /ul (Negative); Nitrite-Dipstick Negative (Negative); Occult Blood-Urine 250 /ul (Negative); Protein-Dipstick 30 mg/dl (Negative); Urine Bilirubin Dipstick Negative (Negative); Urine Clarity Clear (Clear); Urine Urobilinogen Normal (Normal)
[2022-01-25 19:25] LABS: Absolute Lymphocyte Count 2.84 X10^3/uL (0.83-4.51); Absolute Neutrophil Count 3.9 X10^3/uL (2.0-7.7); Basophil# 0.04 X10^3/uL; Basophil% 0.5 % (0-1); Eosinophil# 0.15 X10^3/uL; Lymphocyte # 2.84 X10^3/ul (0.83-4.51); Lymphocyte % 37.6 % (19-41); Mean Corp Hgb Conc 29.7 g/dL (32-36); Mean Corpuscular Hgb 22.5 pg (27.0-32.0); Mean Corpuscular Volume 75.7 fL (81-99); Mean Platelet Vol. 10.2 fl (6.2-12.0); Monocyte# 0.58 X10^3/uL; Monocyte% 7.7 % (0-10); NRBC Flagged by Analyzer 0 % (0-5); Neutrophil # 3.91 X10^3/uL (2.7-7.7); Neutrophil % 51.8 % (47-70); Platelet Count 366 K/mm3 (150-450); RBC Distribution Width CV 19.3 % (11.6-14.6); RBC Distribution Width SD 51.6 fl (35.1-43.9); Red Blood Count 4.89 M/mm3 (4.2-5.4); White Blood Count 7.6 K/mm3 (4.4-11.0)
[2022-01-25 19:32] LABS: Bacteria 1+ /hpf (None Seen); Red Blood Cells-Urine 10-25 SEEN /hpf (0-5); Squamous Epithelial Cells - UA 0-5 SEEN /hpf (5-10); White Blood Cells 0-5 SEEN /hpf (0-5)
--- NOTE | 2022-01-25 20:06 | CT_ITS ---
INDICATION: right flank pain EXAMINATION: CT ABDOMEN AND PELVIS WITHOUT CONTRAST - CT Abdomen And Pelvis W/O Contrast Injection TECHNIQUE: Helically acquired images were obtained of the abdomen and pelvis without oral or IV contrast. A radiation dose optimization technique was used for this scan. IV Contrast dosage and agent: None. Oral contrast: None. COMPARISON: 06/23/2012 CT abdomen and pelvis. FINDINGS: LOWER CHEST: Lung bases are clear. No cardiomegaly or pericardial effusion. There is a sliding hiatal hernia. LIVER: Homogeneous. No focal mass. GALLBLADDER AND BILIARY TREE: No calcified gallstones. Collapsed gallbladder with no surrounding edema or inflammatory changes. No intra- or extrahepatic biliary ductal dilation. PANCREAS: No focal cystic or solid mass. SPLEEN: Normal size without focal cystic or solid mass. ADRENAL GLANDS: No nodules. KIDNEYS, URETERS and BLADDER: Normal renal size and position. No mass. No hydronephrosis. There are several nonobstructing genitourinary stones the largest of which measures 3 mm mid right kidney. Slightly smaller stones seen in the upper pole right kidney, too other stones. Punctate calcification also seen in the mid upper pole left kidney. Distal ureters cannot be clearly delineated from pelvic vasculature. There is a 3 mm calcification in close proximity to the normal course of the distal right ureter near the ureterovesical vesicle junction on the right and is favored to represent a phlebolith however nonobstructing distal right ureteral stone cannot be completely excluded. No bladder stone. PERITONEUM: No ascites or free air. No other fluid collection. BOWEL: No evidence of acute appendicitis. No abnormally distended bowel loops or air fluid levels. No wall thickening or mass. No focal inflammatory changes. LYMPH NODES: No enlarged mesenteric or retroperitoneal lymph nodes. VESSELS: Aorta is non-dilated. REPRODUCTIVE ORGANS: Normal. ABDOMINAL WALL: No discrete abdominal or pelvic wall hernia. BONES: No lytic or blastic abnormality. CT/Abdomen/Pelvis without Cont IMPRESSION: 3 right and one left nonobstructing renal stones, 3 mm or smaller in size. No hydronephrosis. 3 mm stone in the expected course of the distal right ureter, not clearly delineated in the pelvis, is favored to represent a phlebolith however nonobstructing right ureteral stone is not completely excluded. Correlate clinically for hematuria. Sliding hiatal hernia. Electronically Signed: Matthew Rachel DO at 21:12 EDT ,
--- NOTE | 2022-01-25 20:07 | EDS_ITS ---
HPI History of Present Illness Chief Complaint: Flank Pain Informant: patient Onset/Context/Timing Onset: Days Context: Gradual Onset Current Severity: Moderate Maximum Severity: Moderate Narrative Narrative: Patient presents secondary to right flank pain. Symptoms been ongoing for the past couple days. She denies urinary symptoms. She does have a history of kidney stones. Pain seems to stay in the right lower back and does not wrap into the abdomen at this time. With her prior kidney stone she has required lithotripsy. [facility] Medical History (Updated 01/25/22 @ 22:[address] Morenita Ellis MD) Anxiety Back pain GERD (gastroesophageal reflux disease) Hypothyroid Home Medications duloxetine 60 mg capsule,delayed release 60 mg PO DAILY anxiety 08/22/19 [History Last Taken Unknown] levothyroxine 50 mcg tablet 50 tab PO DAILY thyroid 08/22/19 [History Last Taken 08/23/19 06:00 50 tab] trazodone 50 mg tablet 50 tab PO QHS sleep 08/22/19 [History Last Taken Unknown] azithromycin 250 mg tablet (Zithromax) 250 mg PO DAILY 06/02/21 [History Last Taken Unknown] dexamethasone 6 mg tablet 6 mg PO DAILY 06/02/21 [History Last Taken Unknown] gabapentin 300 mg capsule 300 mg PO BID 06/02/21 [History Last Taken Unknown] albuterol sulfate 90 mcg/actuation aerosol inhaler (Ventolin HFA) 2 puff inhalation Q6H PRN shortness of breath or wheezing #6.7 grams 06/10/21 [Rx Last Taken Unknown] promethazine-DM 6.25 mg-15 mg/5 mL oral syrup 5 ml PO Q6H PRN cough #118 mL 06/10/21 [Rx Last Taken Unknown] hydrocodone-acetaminophen 5-325mg 5mg-325mg 1 tab PO Q6H PRN pain 3 days #10 tabs 01/25/22 [Rx Last Taken Unknown] ibuprofen 600 mg tablet 600 mg PO Q8H PRN PRN pain #20 tabs 01/25/22 [Rx Last Taken Unknown] ondansetron 4 mg disintegrating tablet 4 mg PO Q8H PRN nausea and vomiting #10 tabs 01/25/22 [Rx Last Taken Unknown] tamsulosin 0.4 mg capsule (Flomax) 0.4 mg PO DAILY #5 caps 01/25/22 [Rx Last Taken Unknown] Allergy/AdvReac Type Severity Reaction Status Date / Time No Known Allergies Allergy Verified 01/25/22 18:36 Family History Mother Heart disease Thyroid disorder Breast cancer Aunt Breast cancer Surgical History History of lithotripsy Social History Smoking Status: Never smoker ROS ROS ED Constitutional Constitutional ED: Denies chills or fever(s) Eyes Eyes: Denies change in vision or discharge from eye(s) ENT ENT ED: Denies discharge from eye(s), rhinorrhea or sore throat Cardiovascular Cardiovascular: Denies chest pain or palpitations Respiratory/Chest Respiratory/Chest: Denies cough or dyspnea Gastrointestinal Gastrointestinal: Reports nausea; Denies abdominal pain, diarrhea or vomiting Genitourinary Genitourinary ED: Denies difficulty urinating or dysuria Musculoskeletal Musculoskeletal: Reports back pain; Denies extremity pain Integumentary Denies Abrasions or rash Neurologic Neurologic: Denies headache(s) or weakness Psychiatric Psychiatric: Denies anxiety or depression Allergic/Immunologic Allergic/Immunologic ED: Denies lip swelling or urticaria EXAM Physical Exam Const Vital Signs: 01/25/22 18:36 01/25/22 22:18 Temperature 96.4 F L Temperature Source Temporal Pulse Rate 67 Respiratory Rate 18 Blood Pressure 136/89 H 128/79 H Blood Pressure Mean 104 Pulse Ox 97 Oxygen Delivery Method Room Air Positive well nourished and well developed General Appearance ED: well developed HEENT Reports normocephalic and head/scalp atraumatic Eyes PERRL and EOMs intact bilaterally Neck supple Chest Wall inspection of chest normal and palpation of chest normal Resp normal respiratory effort and clear to auscultation bilaterally Cardio regular rate and regular rhythm GI non-tender Auscultation: hypoactive bowel sounds Palpation: soft Back/Spine no CVA tenderness Back/Spine Narrative: Tenderness in the right lumbar paraspinal muscles but no true CVA tenderness. Extremity normal to inspection Neuro oriented x3 and no sensory deficits noted Sensorium / Orientation: alert Motor Exam: strength 5/5 throughout Psych mental status grossly normal Skin no rashes or lesions noted MDM MDM MDM Narrative Medical decision making narrative: Patient did drive herself to the emergency room. She is given Toradol and Zofran along with IV fluids. Lab work and urinalysis obtained along with a CT flank. Lab Data Attestation: I reviewed the patient's lab results. Labs: Laboratory Results - last 24 hr 01/25/22 01/25/22 01/25/22 18:45 19:10 19:10 WBC 7.6 RBC 4.89 Hgb 11.0 L Hct 37.0 MCV 75.7 L MCH 22.5 L MCHC 29.7 L RDW Std Deviation 51.6 H RDW Coeff of Armando 19.3 H Plt Count 366 MPV 10.2 Immature Gran % (Auto) 0.400 Neut % (Auto) 51.8 Lymph % (Auto) 37.6 [place] % (Auto) 7.7 Eos % (Auto) 2.0 Baso % (Auto) 0.5 Absolute Neuts (auto) 3.9 Absolute Lymphs (auto) 2.84 Nucleated RBC % 0 Sodium 139 Potassium 4.2 Chloride 107 Carbon Dioxide 25.0 Anion Gap 7 BUN 10 Creatinine 0.79 Estim Creat Clear Calc 92.13 Est GFR (MDRD) Af Amer 99 Est GFR (MDRD) Non-Af 82 BUN/Creatinine Ratio 12.7 Glucose 107 H Calcium 8.3 L Urine Color Straw Urine Clarity Clear Urine pH 6.0 Ur Specific [place] 1.020 Urine Protein 30 H Urine Glucose (UA) Normal Urine Ketones Negative Urine Occult Blood 250 H Urine Nitrite Negative Urine Bilirubin Negative Urine Urobilinogen Normal Ur Leukocyte Esterase 100 H Urine RBC 10-25 SEEN Urine WBC 0-5 SEEN Ur Squamous Epith Cells 0-5 SEEN Urine Bacteria 1+ Urine Mucus 0 SEEN Radiography Diagnostic Testing: Clinical Impression(s) from Imaging Studies Abdomen/Pelvis CT 01/25/22 20:06 IMPRESSION: 3 right and one left nonobstructing renal stones, 3 mm or smaller in size. No hydronephrosis. 3 mm stone in the expected course of the distal right ureter, not clearly delineated in the pelvis, is favored to represent a phlebolith however nonobstructing right ureteral stone is not completely excluded. Correlate clinically for hematuria. Sliding hiatal hernia. Electronically Signed: Matthew Rachel DO at 21:12 EDT , Treatment and Re-Evaluation Narrative: CBC and chemistry studies are unremarkable. Urinalysis does reveal 250 of blood on macroscopic exam and 10-25 RBCs on microscopic exam. CT scan reveals 3 right and 1 left nonobstructing renal stones. No hydronephrosis is noted. There is a 3 mm stone in the expected course of the distal right ureter. They are unsure if this is in the ureter or a phlebolith. In light of the fact the patient does have right-sided pain with hematuria my suspicion is this is a ureteral stone. Patient will be treated with appropriate analgesics. She will be referred to urology for follow-up. Discharge Plan Triage Chief Complaint: Flank Pain ED Provider: Morenita Ellis Dx/Rx/DC Orders Clinical Impression: Ureterolithiasis Instructions: ED Kidney Stone w/ Colic Prescriptions: New hydrocodone-acetaminophen 5-325 mg tablet 1 tab PO Q6H PRN (Reason: pain) 3 Days Qty: 10 0RF ibuprofen 600 mg tablet 600 mg PO Q8H PRN PRN (Reason: pain) Qty: 20 0RF tamsulosin [Flomax] 0.4 mg capsule 0.4 mg PO DAILY Qty: 5 0RF ondansetron 4 mg tablet,disintegrating 4 mg PO Q8H PRN (Reason: nausea and vomiting) Qty: 10 0RF No Action trazodone 50 mg tablet 50 tab PO QHS levothyroxine 50 mcg tablet 50 tab PO DAILY duloxetine 60 mg capsule,delayed release(DR/EC) 60 mg PO DAILY Label Comments: TAKE ONE CAPSULE BY MOUTH EVERY MORNING WITH FOOD gabapentin 300 mg capsule 300 mg PO BID azithromycin [Zithromax] 250 mg Tablet 250 mg PO DAILY dexamethasone 6 mg Tablet 6 mg PO DAILY promethazine-DM 6.25-15 mg/5 mL syrup 5 ml PO Q6H PRN (Reason: cough) Qty: 118 0RF albuterol sulfate [Ventolin HFA] 90 mcg/actuation HFA aerosol inhaler 2 puff inhalation Q6H PRN (Reason: shortness of breath or wheezing) Qty: 6.7 0RF Primary Care Provider: Diana Watt Referrals: Diana Watt DO [Primary Care Provider] - 1 Week Keerthi Barnes MD [Med Staff - Active Staff] - As Needed Disposition Disposition: Home, Self Care Discharge Date/Time: 01/25/22 22:18
[2022-01-25] MEDS: Ondansetron 4 MG/2 ML Vial IV (20:12)
[2022-01-25] MEDS: Ketorolac 30 MG/ML Syringe IV (20:12)
[2022-01-25] MEDS: 0.9% Normal Saline 1,000 ML 150 ML IV (20:15)
[2022-01-25 21:28] LABS: Anion Gap 7 (5-15); BUN 10 mg/dL (7-18); BUN/Creat Ratio 12.7 RATIO (10-20); Calcium,Total 8.3 mg/dL (8.5-10.1); Chloride 107 mmol/L (98-107); Creatinine, Serum 0.79 mg/dL (0.55-1.02); EST Glomerular Filtration Rate 82 mL/min (>60); Est Glom Filt Rate - Afr Amer 99 mL/min (>60); Estimated Creatinine Clearance 92.13 ml/min; Glucose 107 mg/dL (74-106); Potassium 4.2 mmol/L (3.5-5.1); Sodium Level 139 mmol/L (136-145)
[2022-01-25 22:18] VITALS: BP 128/79
== END 2022-01-25 22:18 | disposition home or self-care (01) ==
PROVIDERS: Emergency Provider Emergency Medicine; PCP Internal Medicine; Visit Provider Emergency Medicine
DX: N20.2 Calculus of kidney with calculus of ureter (principal); F41.9 Anxiety disorder, unspecified; E03.9 Hypothyroidism, unspecified; K21.9 Gastro-esophageal reflux disease without esophagitis; Z79.899 Other long term (current) drug therapy; Z87.442 Personal history of urinary calculi
CPT/HCPCS: 74176; 80048; 81001; 85025; 96361; 96374; 96375; 99282; J7030; A4216; J2405

== ENCOUNTER 2022-01-29 12:24 | Emergency (ER) | payer OTHER, SELFPAY ==
[2022-01-29 12:25] VITALS: BP 137/78; PULSE 66; RESP 18; TEMP 37.1; O2SAT 98; BMI 28.7
[2022-01-29] MEDS: HYDROmorphone 1 MG/ML Syringe IV (13:10)
[2022-01-29] MEDS: Ondansetron 4 MG/2 ML Vial IV (13:10)
[2022-01-29 13:19] LABS: Mucous, Urine 0 SEEN /hpf (<or=2+)
[2022-01-29 13:20] LABS: Absolute Lymphocyte Count 2.39 X10^3/uL (0.83-4.51); Absolute Neutrophil Count 3.9 X10^3/uL (2.0-7.7); Basophil# 0.04 X10^3/uL; Basophil% 0.6 % (0-1); Eosinophil# 0.11 X10^3/uL; Eosinophils% 1.6 % (0-5); Hematocrit 36.3 % (37-47); Lymphocyte # 2.39 X10^3/ul (0.83-4.51); Lymphocyte % 34.4 % (19-41); Mean Corp Hgb Conc 30.3 g/dL (32-36); Mean Corpuscular Hgb 22.2 pg (27.0-32.0); Mean Corpuscular Volume 73.3 fL (81-99); Mean Platelet Vol. 10.1 fl (6.2-12.0); Monocyte% 7.2 % (0-10); NRBC Flagged by Analyzer 0 % (0-5); Neutrophil # 3.87 X10^3/uL (2.7-7.7); Neutrophil % 55.8 % (47-70); POSITIVE MORPHOLOGY YES; Platelet Count 334 K/mm3 (150-450); RBC Distribution Width CV 18.4 % (11.6-14.6); RBC Distribution Width SD 48.2 fl (35.1-43.9); Red Blood Count 4.95 M/mm3 (4.2-5.4); White Blood Count 6.9 K/mm3 (4.4-11.0)
[2022-01-29 13:21] LABS: Color, Urine Yellow (Yellow); Glucose, Dipstick Normal (Normal); Ketone-Dipstick Negative (Negative); Leukocyte Esterase-Dipstick 500 /ul (Negative); Nitrite-Dipstick Negative (Negative); Occult Blood-Urine 10 /ul (Negative); Protein-Dipstick 15 mg/dl (Negative); Urine Bilirubin Dipstick Negative (Negative); Urine Clarity Clear (Clear); Urine Urobilinogen Normal (Normal)
[2022-01-29 13:32] LABS: White Blood Cells 5-10 SEEN /hpf (0-5)
[2022-01-29 13:33] LABS: Anion Gap 3 (5-15); BUN 12 mg/dL (7-18); BUN/Creat Ratio 15.8 RATIO (10-20); Bacteria 1+ /hpf (None Seen); Calcium,Total 8.8 mg/dL (8.5-10.1); Chloride 107 mmol/L (98-107); Creatinine, Serum 0.76 mg/dL (0.55-1.02); EST Glomerular Filtration Rate 86 mL/min (>60); Est Glom Filt Rate - Afr Amer 103 mL/min (>60); Estimated Creatinine Clearance 95.76 ml/min; Glucose 104 mg/dL (74-106); Potassium 3.9 mmol/L (3.5-5.1); Red Blood Cells-Urine 0-5 SEEN /hpf (0-5); Sodium Level 139 mmol/L (136-145); Squamous Epithelial Cells - UA 5-10 SEEN /hpf (5-10)
[2022-01-29 13:47] LABS: Differential Indicated SCAN CRITERIA MET
[2022-01-29 13:48] LABS: Reactive Lymphocyte 1+
--- NOTE | 2022-01-29 14:35 | EDS_ITS ---
HPI HPI - GI History of Present Illness Chief Complaint: Flank Pain Informant: patient Abdominal Pain/Flank Pain Onset: Days (4-5) Context: Sudden Onset Timing: Continuous Quality: Aching Location: Right Flank Current Severity: Moderate Maximum Severity: Severe Worsened by: Nothing Relieved by: Nothing (Medications not helping now) Nausea/Vomiting/Emesis GI Symptom: Positive for Nausea; Negative for Vomiting Diarrhea/Melena/Hematochezia GI Symptom: Negative for Diarrhea, Melena or Hematochezia Associated Symptoms Associated Symptoms: Negative for Dysuria, Frequency, Hematuria or Urgency Narrative Narrative: Patient was diagnosed with a kidney stone here couple days ago via CT scan, she states she has a kink in her ureter that she was diagnosed with by urology and she has never been able to pass a stone in her right side. She is scheduled to see urology on Tuesday, but she presents here on Tuesday because the pain medication is not helping at all anymore and she cannot get the pain to subside, and as a result she cannot get any sleep. Nausea but no vomiting. No fevers or discharge. No hematuria or dysuria. No other new symptoms. [facility] Medical History (Updated 01/29/22 @ 14:[address] Evangelista Ospina MD) Anxiety Back pain GERD (gastroesophageal reflux disease) Hypothyroid Home Medications duloxetine 60 mg capsule,delayed release 60 mg PO DAILY anxiety 08/22/19 [History Last Taken Unknown] levothyroxine 50 mcg tablet 50 tab PO DAILY thyroid 08/22/19 [History Last Taken 08/23/19 06:00 50 tab] trazodone 50 mg tablet 50 tab PO QHS sleep 08/22/19 [History Last Taken Unknown] azithromycin 250 mg tablet (Zithromax) 250 mg PO DAILY 06/02/21 [History Last Taken Unknown] dexamethasone 6 mg tablet 6 mg PO DAILY 06/02/21 [History Last Taken Unknown] gabapentin 300 mg capsule 300 mg PO BID 06/02/21 [History Last Taken Unknown] albuterol sulfate 90 mcg/actuation aerosol inhaler (Ventolin HFA) 2 puff inhalation Q6H PRN shortness of breath or wheezing #6.7 grams 06/10/21 [Rx Last Taken Unknown] promethazine-DM 6.25 mg-15 mg/5 mL oral syrup 5 ml PO Q6H PRN cough #118 mL 06/10/21 [Rx Last Taken Unknown] hydrocodone-acetaminophen 5-325mg 5mg-325mg 1 tab PO Q6H PRN pain 3 days #10 tabs 01/25/22 [Rx Last Taken Unknown] ibuprofen 600 mg tablet 600 mg PO Q8H PRN PRN pain #20 tabs 01/25/22 [Rx Last Taken Unknown] ondansetron 4 mg disintegrating tablet 4 mg PO Q8H PRN nausea and vomiting #10 tabs 01/25/22 [Rx Last Taken Unknown] tamsulosin 0.4 mg capsule (Flomax) 0.4 mg PO DAILY #5 caps 01/25/22 [Rx Last Taken Unknown] cephalexin 500 mg capsule 500 mg PO Q6 #28 CAPSULES 01/29/22 [Rx Last Taken Unknown] ketorolac 10 mg tablet 10 mg PO TID PRN pain 3 days #9 tabs 01/29/22 [Rx Last Taken Unknown] oxycodone-acetaminophen 5 mg-325 mg tablet 1 - 2 tab PO Q6H PRN PRN Pain 2 days #16 TABLETS 01/29/22 [Rx Last Taken Unknown] Allergy/AdvReac Type Severity Reaction Status Date / Time No Known Allergies Allergy Verified 01/29/22 12:27 Family History Mother Heart disease Thyroid disorder Breast cancer Aunt Breast cancer Surgical History History of lithotripsy Social History Smoking Status: Never smoker ROS ROS ED Constitutional Constitutional ED: Denies chills or fever(s) Eyes Eyes: Denies change in vision or diplopia ENT ENT ED: Denies rhinorrhea or sore throat Cardiovascular Cardiovascular: Denies chest pain or palpitations Respiratory/Chest Respiratory/Chest: Denies cough or dyspnea Gastrointestinal Gastrointestinal: Reports abdominal pain and nausea; Denies diarrhea or vomiting Genitourinary Genitourinary ED: Reports flank pain; Denies dysuria or hematuria Musculoskeletal Musculoskeletal: Reports back pain; Denies neck pain Integumentary Denies abscess or rash Neurologic Neurologic: Denies headache(s), paresthesias or weakness Psychiatric Psychiatric: Denies anxiety or suicidal thoughts EXAM Physical Exam Const Vital Signs: 01/29/22 12:25 Temperature 98.7 F Temperature Source Temporal Pulse Rate 66 Respiratory Rate 18 Blood Pressure 137/78 H Blood Pressure Mean 97 Pulse Ox 98 Oxygen Delivery Method Room Air Positive well nourished and well developed General Appearance ED: well developed and NAD HEENT Reports moist mucous membranes normocephalic and atraumatic Eyes PERRL and EOMs intact bilaterally Neck full ROM and supple Resp normal respiratory effort and clear to auscultation bilaterally Cardio regular rate, regular rhythm and no murmurs GI non-tender and non-distended Auscultation: normoactive bowel sounds Palpation: soft Back/Spine General Back: CVA tenderness right and other FROM Extremity normal to inspection General Extremety ED: Negative for edema, pulses abnormal or tenderness General Extremity: Negative for edema or pulses abnormal Neuro oriented x3, CN's II-XII intact bilaterally and no sensory deficits noted Sensorium / Orientation: awake and alert Motor Exam: strength 5/5 throughout Skin no rashes or lesions noted and no wounds MDM MDM MDM Narrative Medical decision making narrative: 3 mm stone was seen near the right UVJ which is consistent with where her symptoms are. Renal function is normal, she does not have a leukocytosis but she does have a change in her urinalysis that makes it look more like an infection. There is only 5-10 WBC at this time. Sent for culture, given her empiric Rocephin. No one is available/on-call for urology today. She is well clinically with normal vital signs and she is not septic. Given this, after analgesics helped her feel better and antibiotics are finished I think she is stable to be discharged home and follow-up closely as scheduled after the weekend, we discussed reasons to return to the ER she is comfortable with that plan and prescribed antibiotics. She is asking for refill for her Percocet. I gave her prescription for a couple more days, in addition to some ketorolac to take orally as an adjunct which hopefully will help her pain. Lab Data Attestation: I reviewed the patient's lab results. Labs: Laboratory Results - last 24 hr 01/29/22 01/29/22 01/29/22 13:12 13:12 13:12 WBC 6.9 RBC 4.95 Hgb 11.0 L Hct 36.3 L MCV 73.3 L MCH 22.2 L MCHC 30.3 L RDW Std Deviation 48.2 H RDW Coeff of Armando 18.4 H Plt Count 334 MPV 10.1 Immature Gran % (Auto) 0.400 Neut % (Auto) 55.8 Lymph % (Auto) 34.4 [place] % (Auto) 7.2 Eos % (Auto) 1.6 Baso % (Auto) 0.6 Absolute Neuts (auto) 3.9 Absolute Lymphs (auto) 2.39 Nucleated RBC % 0 Reactive Lymphocytes 1+ Sodium 139 Potassium 3.9 Chloride 107 Carbon Dioxide 29.0 Anion Gap 3 L BUN 12 Creatinine 0.76 Estim Creat Clear Calc 95.76 Est GFR (MDRD) Af Amer 103 Est GFR (MDRD) Non-Af 86 BUN/Creatinine Ratio 15.8 Glucose 104 Calcium 8.8 Urine Color Yellow Urine Clarity Clear Urine pH 7.0 Ur Specific [place] 1.010 Urine Protein 15 H Urine Glucose (UA) Normal Urine Ketones Negative Urine Occult Blood 10 H Urine Nitrite Negative Urine Bilirubin Negative Urine Urobilinogen Normal Ur Leukocyte Esterase 500 H Urine RBC 0-5 SEEN Urine WBC 5-10 SEEN Ur Squamous Epith Cells 5-10 SEEN Urine Bacteria 1+ Urine Mucus 0 SEEN Discharge Plan Triage Chief Complaint: Flank Pain ED Provider: Evangelista Ospina Dx/Rx/DC Orders Clinical Impression: Renal colic on right side, Ureterolithiasis, Acute lower UTI Instructions: ED Kidney Stone w/ Colic Prescriptions: New cephalexin [cephalexin] 500 mg capsule 500 mg PO Q6 Qty: 28 0RF ketorolac 10 mg tablet 10 mg PO TID PRN (Reason: pain) 3 Days Qty: 9 0RF oxycodone-acetaminophen 5-325 mg tablet 1 - 2 tab PO Q6H PRN PRN (Reason: Pain) 2 Days Qty: 16 0RF No Action trazodone 50 mg tablet 50 tab PO QHS levothyroxine 50 mcg tablet 50 tab PO DAILY duloxetine 60 mg capsule,delayed release(DR/EC) 60 mg PO DAILY Label Comments: TAKE ONE CAPSULE BY MOUTH EVERY MORNING WITH FOOD gabapentin 300 mg capsule 300 mg PO BID azithromycin [Zithromax] 250 mg Tablet 250 mg PO DAILY dexamethasone 6 mg Tablet 6 mg PO DAILY promethazine-DM 6.25-15 mg/5 mL syrup 5 ml PO Q6H PRN (Reason: cough) Qty: 118 0RF albuterol sulfate [Ventolin HFA] 90 mcg/actuation HFA aerosol inhaler 2 puff inhalation Q6H PRN (Reason: shortness of breath or wheezing) Qty: 6.7 0RF hydrocodone-acetaminophen 5-325 mg tablet 1 tab PO Q6H PRN (Reason: pain) 3 Days Qty: 10 0RF ibuprofen 600 mg tablet 600 mg PO Q8H PRN PRN (Reason: pain) Qty: 20 0RF tamsulosin [Flomax] 0.4 mg capsule 0.4 mg PO DAILY Qty: 5 0RF ondansetron 4 mg tablet,disintegrating 4 mg PO Q8H PRN (Reason: nausea and vomiting) Qty: 10 0RF Primary Care Provider: Diana Watt Referrals: Diana Watt DO [Primary Care Provider] - Keerthi Barnes MD [Med Staff - Active Staff] - Keep Esther appointment Disposition Disposition: Home, Self Care
[2022-01-29] MEDS: Ceftriaxone 1 GM/50 ML BAG IV (14:40)
[2022-01-29] MEDS: Ketorolac 30 MG/ML Syringe IV (15:09)
[2022-01-29 15:15] VITALS: BP 105/73; PULSE 45
== END 2022-01-29 15:21 | disposition home or self-care (01) ==
PROVIDERS: Emergency Provider Emergency Medicine; PCP Internal Medicine; Visit Provider Emergency Medicine
DX: N39.0 Urinary tract infection, site not specified (principal); N20.1 Calculus of ureter; F41.9 Anxiety disorder, unspecified; E03.9 Hypothyroidism, unspecified; K21.9 Gastro-esophageal reflux disease without esophagitis; Z79.899 Other long term (current) drug therapy
CPT/HCPCS: 80048; 81001; 85025; 87086; 87088; 96361; 96365; 96375; 99282; J7030; A4216; J2405

== ENCOUNTER 2022-02-04 11:57 | Day surgery (SDC) | payer OTHER, SELFPAY ==
[2022-02-04 12:22] VITALS: BP 126/72; PULSE 67; RESP 16; TEMP 36.6; O2SAT 97; BMI 27.8
[2022-02-04] MEDS: Lactated Ringers 1,000 ML 15 ML IV (12:33)
[2022-02-04 12:42] LABS: Internal QC Validated? YES +Cl - CLEAR BKGD; Pregnancy, Urine Negative Negative
[2022-02-04] MEDS: Cefazolin 2 GM in 0.9% Normal Saline 100 ML IV (13:20)
[2022-02-04 14:00] VITALS: BP 126/72; BP 153/92; PULSE 66; RESP 16; TEMP 36.5; O2SAT 96
[2022-02-04 14:15] VITALS: BP 126/72; BP 163/96; PULSE 65; RESP 16; O2SAT 100
[2022-02-04 14:20] VITALS: BP 126/72; BP 138/87; PULSE 64; RESP 16; TEMP 36.6; O2SAT 100
--- NOTE | 2022-02-04 14:35 | DCINST_ITS ---
Discharge Instructions Diet Discharge Diet: No restrictions Activity Discharge Activity: Return to Normal Activity May resume sexual activity in: No Restrictions Dressing / Incision Call your doctor if you observe: Fever of 101 or Higher, Inability to urinate and Inability to have a bowel movement Follow Up Care Please Follow Up With: Keerthi Barnes MD When: the office will call to arrange procedure. Test Results: Test results from this visit will be discussed in further detail at your follow- up appointment, if applicable. Discharge Plan Admission Attending Provider: Keerthi Barnes Primary Care Provider: Diana Watt Discharge Orders/Prescriptions Prescriptions: New ondansetron HCl [ondansetron HCl] 8 mg tablet 8 mg PO Q8H PRN PRN (Reason: Nausea) 7 Days Qty: 20 0RF oxycodone-acetaminophen [oxycodone-acetaminophen] 5-325 mg tablet 2 tab PO Q8H PRN PRN (Reason: Pain) 7 Days Qty: 20 0RF cephalexin [cephalexin] 500 mg capsule 500 mg PO Q12 3 Days Qty: 6 0RF phenazopyridine [Pyridium] 200 mg tablet 200 mg PO TID PRN PRN (Reason: Bladder Spasms) 7 Days Qty: 30 0RF oxybutynin chloride 10 mg tablet extended release 24hr 10 mg PO DAILY 30 Days Qty: 30 0RF Continued trazodone 50 mg tablet 50 tab PO QHS levothyroxine 50 mcg tablet 50 tab PO DAILY duloxetine 60 mg capsule,delayed release(DR/EC) 60 mg PO DAILY Label Comments: TAKE ONE CAPSULE BY MOUTH EVERY MORNING WITH FOOD ibuprofen 600 mg tablet 600 mg PO Q8H PRN PRN (Reason: pain) Qty: 20 0RF ondansetron 4 mg tablet,disintegrating 4 mg PO Q8H PRN (Reason: nausea and vomiting) Qty: 10 0RF ketorolac 10 mg tablet 10 mg PO TID PRN (Reason: pain) 3 Days Qty: 9 0RF Referrals / Follow Up: Diana Watt DO [Primary Care Provider] - Disposition Disposition (needs filled in before D/C Order can be placed): Home, Self Care
[2022-02-04 14:40] VITALS: BP 126/72
--- NOTE | 2022-02-04 14:47 | PCM.OPRPT ---
Report of Operation Date of Procedure: 02/04/22 Pre-Operative Diagnosis: Right distal ureteral calculus Post-Operative Diagnosis: Same, passed ureteral narrowing Surgery/Procedure Performed:: Cystoscopy, right ureteroscopy, right retrograde pyelogram, right ureteral stent insertion Surgeon: Keerthi Barnes Type of Anesthesia: General Specimen's removed: None Description of Procedure: The patient is a 51-year-old female with a history of stones who presented to the office with uncontrolled pain secondary to a right distal ureteral stone approximately 1 to 2 mm in size. Informed consent was obtained and the decision was made to proceed with surgical intervention. The patient was taken to the operating room and placed on the operating room table. Anesthesia monitored the head, neck, airway, IV access and vital signs throughout the case. Once anesthesia was appropriately administered the patient was placed into dorsolithotomy position and was prepped and draped in usual sterile fashion. The cystoscope was inserted through the urethra under direct visualization into the urinary bladder. The bladder mucosa was visualized in its entirety and found to be without evidence of mass, erythema, ulceration or foreign body. The ureteral orifices were located in the correct anatomic position in the area of the trigone. The patient's right ureteral orifice was carefully intubated with an 0.035 Glidewire which advanced easily into the renal pelvis as seen on fluoroscopy. At this time the semirigid ureteroscope was used to intubate the distal right ureter. The ureteroscope was unable to advance past the pelvis due to a narrowing of the ureter. A second wire, 0.025, was inserted through the ureteroscope and I was still unable to advance past the narrowing. An attempt was then made at passing the flexible ureteroscope through the narrowing and this was unsuccessful as well. Contrast was injected then through the ureteroscope into the more proximal area of the ureter which did not reveal any evidence of filling defect consistent with a stone. At this time, a 6 Kinyarwanda 28 cm JJ stent was inserted over the safety wire with good curling achieved in the renal pelvis as well as the urinary bladder. The patient's bladder was then emptied and the case was terminated. The patient was awakened and taken to the recovery room in good condition. There were no complications during this procedure Grafts/Implants Used: 6 x 28 JJ stent Complications None Admit VTE Documentation VTE Present on Admission: Yes VTE Mechan Device Prophylaxis: SCD's VTE Pharm Prophylaxis ordered?: No Reason prophylaxis not ordered:: Treatment Not Indicated
== END 2022-02-04 14:55 | disposition home or self-care (01) ==
LOC: SDC 11:57 → AC 11:59
PROVIDERS: Anesthesiology; PCP Internal Medicine; Referring Provider Urology; Visit Provider Urology
PROC: 0TJ98ZZ Inspection of Ureter, Via Natural or Artificial Opening Endoscopic (ICD-10-PCS; CPT 52352; principal; 2022-02-04 13:15)
DX: N20.1 Calculus of ureter (principal); N13.5 Crossing vessel and stricture of ureter without hydronephrosis; K76.0 Fatty (change of) liver, not elsewhere classified; F41.9 Anxiety disorder, unspecified; Z87.442 Personal history of urinary calculi; Z79.899 Other long term (current) drug therapy; Z86.16 Personal history of COVID-19; E03.9 Hypothyroidism, unspecified; K21.9 Gastro-esophageal reflux disease without esophagitis
CPT/HCPCS: 52356; 00873; 76000; 81025; J7120; J2405

== ENCOUNTER → 2022-02-12 | Outpatient (CLI) | payer OTHER, SELFPAY | END | disposition home or self-care (01) | LOC: LABSPEC 15:20 | PROVIDERS: PCP Internal Medicine; Visit Provider Urology | DX: N39.0 Urinary tract infection, site not specified (principal) | CPT/HCPCS: 87086; 87088 ==

== ENCOUNTER 2022-02-18 06:43 | Day surgery (SDC) | payer OTHER, SELFPAY ==
--- NOTE | 2022-02-18 | CALC_PTH ---
PATIENT: KERWIN STARKS [place] [facility] [place][id number] AGE/SX: 51/F ROOM: RE02/18/[address]: Dr. Keerthi Barnes MD : 1970 BED: DIS: 02/18/2022 SPEC #: [id number] RECD: 02/18/22 11:57 STATUS: JUDITH REMendel #: [id number] MALLY: 02/18/22 00:[address]: Keerthi Barnes DEPT: SURGICAL PATHOLOGY RECD BY: Rajinder Bishop ENTERED: 02/18/22 11:58 SP TYPE: Calculi OTHR DR: Dr. Diana Watt, DO Tissues: CALCULI Procedures: Surgery Specimen Level I HEADER OPERATION: Cystoscopy, ureteroscopy, retrograde pyelogram, stent change PRE-OP DIAGNOSIS: Right renal calculi TISSUE SUBMITTED: Right ureteral calculi GROSS DIAGNOSIS Fragments of stone, clinically right ureteral calculi, submitted for analysis. BON:braydon 02/19/2022 COMMENT The specimen is submitted in its entirety for chemical stone analysis. The results from this study will be reported separately. GROSS DESCRIPTION Received without fixative labeled with the patient's name and designated right ureteral calculi. The specimen consists of two fragments of black irregular stone measuring in aggregate 0.5 x 0.3 x 0.2 cm. The entire specimen is submitted for stone analysis. / BON:braydon 02/18/2022 CPT: 05193
[2022-02-18 07:06] VITALS: BP 119/67; PULSE 68; RESP 16; TEMP 36.5; O2SAT 97; BMI 27.9
[2022-02-18 07:06] LABS: Internal QC Validated? YES +Cl - CLEAR BKGD; Pregnancy, Urine Negative Negative
[2022-02-18] MEDS: Lactated Ringers 1,000 ML 15 ML IV (07:06)
--- NOTE | 2022-02-18 08:17 | PCM.OPRPT ---
Report of Operation Date of Procedure: 02/18/22 Pre-Operative Diagnosis: Right renal calculi Post-Operative Diagnosis: Same Surgery/Procedure Performed:: Cystoscopy, right retrograde pyelogram, right ureteroscopy, stone basket extraction, right ureteral stent change Surgeon: Keerthi Barnes Type of Anesthesia: General Specimen's removed: Renal stones Description of Procedure: The patient is a 51-year-old female who presented 2 weeks ago for ureteroscopy and ended up with a stent insertion due to ureteral narrowing. She now presents for stent removal, ureteroscopy and removal of stones. Informed consent was obtained. The patient was taken to the operating room and placed on the operating room table. Anesthesia monitored the head, neck, airway, IV access and vital signs throughout the case. Once anesthesia was appropriate ministered, the patient was placed into dorsolithotomy position was prepped and draped in usual sterile fashion. At this time the cystoscope was inserted through the urethra under direct visualization into the urinary bladder. Her indwelling right ureteral stent was observed and grasped and brought to the urethral meatus where it was intubated with an 0.035 Glidewire. A cone-tip catheter was used to gently cannulate the ureter alongside the wire and retrograde fashion contrast was an injected revealing no evidence of ureteral obstruction. At this time a second wire was inserted alongside the first into the renal pelvis. A ureteral reaccess sheath was then placed over the Glidewire under fluoroscopic visualization without difficulty. A flexible ureteroscope was then used to gain access to the renal pelvis. 1 large stone was grasped with a basket and removed through the ureteral reaccessed sheath. A second stone was seen on the end of the papilla and was grasped as well and sent for analysis. The remainder of the calcifications that were identified were seen as part of the papilla and were unable to be removed. The ureteroscope was then used to directly visualize removal of the ureteral reaccessed sheath as well as fluoroscopy. There were no injuries to the ureter identified. The safety wire was then used for insertion of a 7 [place] 28 cm JJ stent with good positioning in the renal pelvis as well as the urinary bladder. The patient's bladder was emptied and the case was terminated. She was awakened and taken to the recovery room in good condition. Grafts/Implants Used: 6 x 26 JJ stent Complications None Admit VTE Documentation VTE Present on Admission: Yes VTE Mechan Device Prophylaxis: SCD's VTE Pharm Prophylaxis ordered?: No
--- NOTE | 2022-02-18 08:21 | DCINST_ITS ---
Discharge Instructions Diet Discharge Diet: No restrictions Activity Discharge Activity: Return to Normal Activity Dressing / Incision Call your doctor if you observe: Fever of 101 or Higher, Inability to urinate and Inability to have a bowel movement Follow Up Care Please Follow Up With: Keerthi Barnes MD When: call office for appt for stent removal Test Results: Test results from this visit will be discussed in further detail at your follow- up appointment, if applicable. Discharge Plan Admission Attending Provider: Keerthi Barnes Primary Care Provider: Diana Watt Discharge Orders/Prescriptions Prescriptions: New oxycodone-acetaminophen [oxycodone-acetaminophen] 5-325 mg tablet 2 tab PO Q8H PRN PRN (Reason: Pain) 3 Days Qty: 10 0RF cephalexin [cephalexin] 500 mg capsule 500 mg PO Q12 3 Days Qty: 6 0RF Continued trazodone 50 mg tablet 50 mg PO QHS levothyroxine 50 mcg tablet 50 mcg PO DAILY duloxetine 60 mg capsule,delayed release(DR/EC) 60 mg PO DAILY Label Comments: TAKE ONE CAPSULE BY MOUTH EVERY MORNING WITH FOOD ibuprofen 600 mg tablet 600 mg PO Q8H PRN PRN (Reason: pain) Qty: 20 0RF ondansetron 4 mg tablet,disintegrating 4 mg PO Q8H PRN (Reason: nausea and vomiting) Qty: 10 0RF oxycodone-acetaminophen 5-325 mg tablet 2 tab PO Q8H PRN PRN (Reason: Pain) 7 Days Qty: 20 0RF oxybutynin chloride 10 mg tablet extended release 24hr 10 mg PO DAILY 30 Days Qty: 30 0RF Referrals / Follow Up: Diana Watt DO [Primary Care Provider] - Disposition Disposition (needs filled in before D/C Order can be placed): Home, Self Care
[2022-02-18] MEDS: Cefazolin 2 GM in 0.9% Normal Saline 100 ML IV (08:22)
[2022-02-18 09:09] VITALS: BP 119/67; BP 135/82; PULSE 80; RESP 16; TEMP 36.5; O2SAT 96
[2022-02-18 09:20] VITALS: BP 119/62; BP 119/67; PULSE 78; RESP 16; O2SAT 99
[2022-02-18 09:30] VITALS: BP 119/67; BP 161/92; PULSE 70; RESP 16; O2SAT 100
[2022-02-18 09:35] VITALS: BP 119/67; BP 142/71; PULSE 67; RESP 16; TEMP 36.9; O2SAT 100
[2022-02-18 10:49] VITALS: BP 119/67; BP 140/90; PULSE 66; RESP 16; TEMP 36.7; O2SAT 100
== END 2022-02-18 10:49 | disposition home or self-care (01) ==
LOC: SDC 06:44 → AC 06:45
PROVIDERS: Anesthesiology; PCP Internal Medicine; Referring Provider Urology; Visit Provider Urology
PROC: 0TJ98ZZ Inspection of Ureter, Via Natural or Artificial Opening Endoscopic (ICD-10-PCS; CPT 52352; principal; 2022-02-18 08:10)
DX: N20.0 Calculus of kidney (principal); N13.5 Crossing vessel and stricture of ureter without hydronephrosis; Z87.442 Personal history of urinary calculi; E03.9 Hypothyroidism, unspecified; K76.0 Fatty (change of) liver, not elsewhere classified; F41.9 Anxiety disorder, unspecified; E55.9 Vitamin D deficiency, unspecified; H91.93 Unspecified hearing loss, bilateral; Z79.899 Other long term (current) drug therapy; Z86.16 Personal history of COVID-19; K21.9 Gastro-esophageal reflux disease without esophagitis
CPT/HCPCS: 52356; 76000; 81025; 82360; 88300; J7120; J2405

== ENCOUNTER 2022-05-12 13:45 | Outpatient (CLI) | payer OTHER, SELFPAY ==
--- NOTE | 2022-05-12 13:47 | BI_ITS ---
MAMMOGRAPHY - BILATERAL SCREENING REASON FOR EXAM: Female, 52 years old. Routine annual screening examination. PERTINENT HISTORY: Mother with breast cancer. Aunt with breast cancer. TECHNIQUE: Digital bilateral breast faith (3D mammographic acquisition) in the CC and MLO projections. 2-D mediolateral oblique (MLO) and craniocaudad (CC) views of both breasts were obtained. CAD: Full Field Digital Mammography with Computer Added Detection was performed. COMPARISON: Comparison is made with prior examination dated 11/20/2020 and 03/12/2019. FINDINGS: Breast Composition: The breasts are heterogeneously dense, which may obscure small masses. There are no dominant masses or suspicious calcifications. Stable 7.4 mm well-defined nodule in the axillary region of the right breast. This most likely represents a small lymph node. No other significant abnormalities are identified. There has been no significant change since the prior study. BI/SCRN MAMM (CAD)W/FAITH BILAT IMPRESSION: Stable bilateral screening mammogram. Yearly follow-up mammogram recommended. (A) ASSESSMENT CATEGORY: BIRADS Category 2: Benign. A letter regarding these results will be sent to the patient by the facility within 30 days. Approximately 10% of breast cancers are not detected by mammography. A normal mammogram should not delay biopsy of a clinically suspicious abnormality. [id number] Electronically Signed: Adin Marshall MD at 14:43 EST ,
== END 2022-05-12 23:59 | disposition home or self-care (01) ==
LOC: OPBI 13:45
PROVIDERS: PCP Internal Medicine; Visit Provider Internal Medicine
DX: Z12.31 Encounter for screening mammogram for malignant neoplasm of breast (principal); Z80.3 Family history of malignant neoplasm of breast
CPT/HCPCS: 77063; 77067

== ENCOUNTER → 2022-07-26 | Outpatient (CLI) | payer OTHER, SELFPAY ==
--- NOTE | 2022-07-26 15:58 | NEURO ---
NCS and/or EMG Patient Report Ordering Doctor: Diana Watt DATE OF SERVICE: 07/26/22 Indication: Two year history of intermittent bilateral hand numbness. Evaluate for entrapment neuropathy. Findings: Nerve conduction studies were performed in the right and left upper extremities. The right median motor study recording the abductor pollicis brevis showed a normal amplitude, normal distal latency and normal conduction velocity. The right ulnar motor study recording the abductor digiti minimi showed a normal amplitude, normal distal latency and normal conduction velocity. No conduction block or focal slowing was present across the elbow. The right median sensory response recording digit two showed a normal amplitude, latency and conduction velocity. The right ulnar sensory response recording digit five showed a normal amplitude, latency and conduction velocity. The right radial sensory response recording over the extensor snuff box showed a normal amplitude, latency and conduction velocity. The left median motor study recording the abductor pollicis brevis showed a normal amplitude, normal distal latency and normal conduction velocity. The left ulnar motor study recording the abductor digiti minimi showed a normal amplitude, normal distal latency and normal conduction velocity. No conduction block or focal slowing was present across the elbow. The left median sensory response recording digit two showed a normal amplitude, latency and conduction velocity. The left ulnar sensory response recording digit five showed a normal amplitude, latency and conduction velocity. The left radial sensory response recording over the extensor snuff box showed a normal amplitude, latency and conduction velocity. The right median-ulnar lumbrical / interosseous motor latencies showed a prolonged median latency compared to the ulnar. Left median-ulnar lumbrical / interosseous motor latencies showed a prolonged median latency compared to the ulnar. Needle EMG of the right upper extremity and cervical paraspinal muscles was performed. No denervation was seen in any muscle. All motor unit morphology, activation and recruitment patterns were normal. Needle EMG of the left upper extremity was omitted given the symmetry of symptoms and absence of findings on the right. Impression: This is a borderline study. There is borderline electrophysiologic evidence of median neuropathy across the wrist in both upper extremities as slowing of median responses was only see with internal comparison studies. However, these finds can be compatible with the clinical diagnosis of mild carpal tunnel syndrome. In addition, there is no electrophysiologic evidence of superimposed cervical radiculopathy in the right upper extremity. Greg Aldana D.O. Multi Select Codes Neurology Neurology Interp Codes: 96819-51 [facility] test done w/n test comp (interp) and 07646-25 Nr cndj test 13/> studies (interp)
== END | disposition home or self-care (01) ==
LOC: PSN 14:20
PROVIDERS: PCP Internal Medicine; Referring Provider Internal Medicine; Visit Provider Internal Medicine
DX: E04.1 Nontoxic single thyroid nodule (principal); K76.0 Fatty (change of) liver, not elsewhere classified; R20.2 Paresthesia of skin
CPT/HCPCS: 95886; 95913

== ENCOUNTER 2022-10-12 18:27 | Emergency (ER) | payer OTHER, SELFPAY ==
[2022-10-12 18:28] VITALS: BP 166/74; PULSE 73; RESP 18; TEMP 36.6; O2SAT 100; BMI 29.5
--- NOTE | 2022-10-12 18:48 | CT_ITS ---
INDICATION: Neck pain radiates to chest EXAMINATION: CT CERVICAL SPINE - CT Spine Cervical W/O Contrast Injection TECHNIQUE: Helically acquired images were obtained of the cervical spine. 2D reformatted images were reviewed. A radiation dose optimization technique was used for this scan. IV Contrast dosage and agent: None. RADIATION DOSAGE (If Supplied By Facility): CTDIvol = ( 16.35 ) mGy, DLP = ( 337.45 ) mGycm COMPARISON: 05/26/2020 x-ray FINDINGS: VERTEBRAE: No fracture or traumatic subluxation. No discrete lytic or blastic abnormality. Normal alignment. Normal craniocervical junction and cervicothoracic junction. DISCS and SPINAL CANAL: Disc heights are preserved. No critical stenosis. NECK SOFT TISSUES: No prevertebral soft tissue swelling. There is no cervical adenopathy. Mildly enlarged, heterogeneous thyroid. LUNG APICES: Clear. CT/Spine Cervical without Contras IMPRESSION: Thyroid goiter. No evidence of acute cervical spinal fracture or spondylolisthesis. Electronically Signed: Edwin Thakkar MD at 19:18 EDT ,
--- NOTE | 2022-10-12 18:49 | ED.VIS.CHEST ---
HPI History of Present Illness Chief Complaint: Chest Pain Narrative Narrative: 52-year-old female who denies significant past medical history presents with right-sided neck pain radiating down into her right chest and sometimes down her right arm. She states this has been ongoing for the last few weeks, but more intermittently. Yesterday, she began having the pain radiating from her neck and trapezial area down into her chest. She denies any nausea or vomiting, no shortness of breath or diaphoresis. She was at work today, midmorning, greater than 6 hours ago when she started having more consistent pain. In the past it could last around 10 minutes. She called her who is out of town to ask if she should apply heat or ice, as she felt it was more muscular. She ended up calling her daughter who is a cardiac care nurse who freaked out and had her come to the emergency department for evaluation for cardiac chest pain. [facility] Medical History Alcohol use Anxiety Back pain Fatty liver GERD (gastroesophageal reflux disease) Hypothyroid Low iron Non-smoker Renal calculus, right Home Medications duloxetine 60 mg capsule,delayed release 60 mg PO DAILY anxiety 08/22/19 [History Last Taken 02/04/22] levothyroxine 50 mcg tablet 50 mcg PO DAILY thyroid 08/22/19 [History Last Taken 02/04/22] trazodone 50 mg tablet 50 mg PO QHS sleep 08/22/19 [History Last Taken Unknown] ibuprofen 600 mg tablet 600 mg PO Q8H PRN PRN pain #20 tabs 01/25/22 [Rx Last Taken Unknown] ondansetron 4 mg disintegrating tablet 4 mg PO Q8H PRN nausea and vomiting #10 tabs 01/25/22 [Rx Last Taken Unknown] oxybutynin chloride 10 mg tablet,extended release 24 hr 10 mg PO DAILY 30 days #30 tabs 02/04/22 [Rx Last Taken Unknown] oxycodone-acetaminophen 5 mg-325 mg tablet 2 tab PO Q8H PRN PRN Pain 7 days #20 tabs 02/04/22 [Rx Last Taken Unknown] cephalexin 500 mg capsule 500 mg PO Q12 post-operative 3 days #6 CAPSULES 02/18/22 [Rx Last Taken Unknown] oxycodone-acetaminophen 5 mg-325 mg tablet 2 tab PO Q8H PRN PRN Pain 3 days #10 tabs 02/18/22 [Rx Last Taken Unknown] Allergy/AdvReac Type Severity Reaction Status Date / Time No Known Allergies Allergy Verified 10/12/22 18:30 Family History Mother Heart disease Thyroid disorder Breast cancer Aunt Breast cancer Surgical History History of lithotripsy History of removal of cyst Social History Smoking Status: Never smoker ROS ROS ED ROS Narrative Constitutional: No fever, no chills. HEENT: No sore throat. Positive neck pain with radiation to right arm, and towards right chest. No loss of vision. No rhinorrhea. Cardiovascular: Right-sided chest pain. No palpitations. No pedal edema. Respiratory: No cough, no shortness of breath. Abdominal: No abdominal pain. No nausea. No vomiting. Genitourinary: No dysuria. No hematuria. Musculoskeletal: No myalgias. No arthralgias. Neurologic: No headaches. No dizziness. No lightheadedness. Skin: No rash. No change in color. Psychiatric: No depression. No anxiety. EXAM Physical Exam Narrative Exam Narrative: Afebrile. Vital signs noted. HEENT: Normocephalic. Atraumatic. PERRL, EOMI. Neck soft and supple. No point tenderness or step off. Cardiovascular: Regular rate and rhythm. No murmurs, rubs, or gallops appreciated. Respiratory: No tachypnea. Lungs clear to auscultation bilaterally. Gastrointestinal: Abdomen soft, nontender, with normoactive bowel sounds. No rebound or guarding. Neurological: Awake. Alert. Nonfocal, nonlateralizing. Skin: No rash. Normal color. No pallor. Musculoskeletal: No pedal edema. Full range of motion extremities. Const Vital Signs: 10/12/22 18:28 10/12/22 18:35 10/12/22 18:42 Temperature 98 F Temperature Source Temporal Pulse Rate 73 Respiratory Rate 18 Respiratory Effort Normal Non-Labored Blood Pressure 166/74 H Blood Pressure Mean 104 Pulse Ox 100 Oxygen Delivery Method Room Air Room Air Heart Score History: Slightly/Non-Suspicious ECG: Normal Age: >45 - <65 years Risk Factors: No Risk Factors Score: 1 MDM MDM MDM Narrative Medical decision making narrative: In the differential diagnosis is acute coronary syndrome/cardiac chest pain versus cervical radiculopathy. I have low suspicion for pulmonary embolism as she is not tachycardic and her pulse ox is 100% on room air. She denies any DVT or PE risk factors. Additionally, I have lower suspicion for acute coronary syndrome as she has not necessarily having chest pain radiating to her neck, but the opposite. EKG was obtained and interpreted by myself which demonstrates sinus rhythm at 77 bpm with PACs, but no acute ST changes. No STEMI. This helps rule out an acute STEMI or cardiac pain. Chest pain protocol orders were entered. I do not feel that she needs serial troponins as her chest pain has been ongoing for greater than 6 hours. I did add a CT of the cervical spine to look for spinal stenosis as an explanation for her cervical radiculopathy symptoms. I reviewed her laboratory work, she has slightly elevated leukocytosis of 12.6, hemoglobin 11.2 with slight anemia, hematocrit 37.1, normal platelet count of 338. Electrolyte panel is grossly unremarkable with normal sodium of 137, normal potassium of 3.6, BUN normal at 10 and creatinine normal at 0.78. High-sensitivity troponin is 5. This is greater than a 6-hour troponin. I do not feel that she requires serial troponin. Chest x-ray reviewed by myself and interpreted shows no acute process. I reviewed the radiology report which confirms this. CT of the C-spine shows no critical lesions or stenosis, no fracture on review of the radiology report. At this point in time, I feel she can be discharged safely home with follow-up. Repeat examination at approximately 2009 shows her resting comfortably using her cellular telephone. She is feeling improved. She will follow-up with her primary care physician. Return instructions to the emergency department were reviewed. Disposition is discharged home in stable condition. History & Record Review Discussion w/independent historian: Patient Additional record(s) reviewed:: Prior ED visit Lab Data Attestation: I reviewed the patient's lab results. Labs: Laboratory Results - last 24 hr 10/12/22 10/12/22 18:43 18:43 WBC 12.6 H RBC 4.82 Hgb 11.2 L Hct 37.1 MCV 77.0 L MCH 23.2 L MCHC 30.2 L RDW Std Deviation 50.3 H RDW Coeff of Armando 18.2 H Plt Count 338 MPV 10.6 Immature Gran % (Auto) 0.400 Neut % (Auto) 62.2 Lymph % (Auto) 27.4 Yancey % (Auto) 8.0 Eos % (Auto) 1.4 Baso % (Auto) 0.6 Absolute Neuts (auto) 7.8 H Absolute Lymphs (auto) 3.45 Nucleated RBC % 0 Sodium 137 Potassium 3.6 Chloride 104 Carbon Dioxide 26.0 Anion Gap 7 BUN 10 Creatinine 0.78 Estim Creat Clear Calc 92.27 Est GFR (MDRD) Af Amer 100 Est GFR (MDRD) Non-Af 82 BUN/Creatinine Ratio 12.8 Glucose 82 Calcium 9.3 Troponin I High Sens 5 Radiography Diagnostic Testing: Clinical Impression(s) from Imaging Studies Cervical Spine CT 10/12/22 18:48 IMPRESSION: Thyroid goiter. No evidence of acute cervical spinal fracture or spondylolisthesis. Electronically Signed: Edwin Thakkar MD at 19:18 EDT , Chest X-Ray 10/12/22 18:50 IMPRESSION: No radiographic evidence of acute cardiopulmonary disease. Electronically Signed: Edwin Thakkar MD at 19:00 EDT , Discharge Plan Triage Chief Complaint: Chest Pain ED Provider: Nghia Tran Dx/Rx/DC Orders Clinical Impression: Neck pain, Chest pain Instructions: ED Chest Pain, Uncertain Cause, ED Neck Pain Prescriptions: No Action trazodone 50 mg tablet 50 mg PO QHS levothyroxine 50 mcg tablet 50 mcg PO DAILY duloxetine 60 mg capsule,delayed release(DR/EC) 60 mg PO DAILY Label Comments: TAKE ONE CAPSULE BY MOUTH EVERY MORNING WITH FOOD ibuprofen 600 mg tablet 600 mg PO Q8H PRN PRN (Reason: pain) Qty: 20 0RF ondansetron 4 mg tablet,disintegrating 4 mg PO Q8H PRN (Reason: nausea and vomiting) Qty: 10 0RF oxycodone-acetaminophen 5-325 mg tablet 2 tab PO Q8H PRN PRN (Reason: Pain) 7 Days Qty: 20 0RF oxybutynin chloride 10 mg tablet extended release 24hr 10 mg PO DAILY 30 Days Qty: 30 0RF oxycodone-acetaminophen [oxycodone-acetaminophen] 5-325 mg tablet 2 tab PO Q8H PRN PRN (Reason: Pain) 3 Days Qty: 10 0RF cephalexin [cephalexin] 500 mg capsule 500 mg PO Q12 3 Days Qty: 6 0RF Primary Care Provider: Diana Watt Referrals: Diana Watt DO [Primary Care Provider] - 3-5 Days if not improving Disposition Disposition: Home, Self Care
--- NOTE | 2022-10-12 18:50 | RAD_ITS ---
INDICATION: Chest pain EXAMINATION/TECHNIQUE: X-RAY - XR Chest 1 View COMPARISON: 05/26/2020 FINDINGS: LUNGS: No consolidation, edema or effusion. No pneumothorax. MEDIASTINUM AND CARDIOVASCULAR STRUCTURES: Cardiac silhouette not enlarged. Central airways and mediastinal contour are unremarkable. RAD/Chest 1 View (Portable) IMPRESSION: No radiographic evidence of acute cardiopulmonary disease. Electronically Signed: Edwin Thakkar MD at 19:00 EDT ,
[2022-10-12 19:12] LABS: Absolute Lymphocyte Count 3.45 X10^3/uL (0.83-4.51); Absolute Neutrophil Count 7.8 X10^3/uL (2.0-7.7); Basophil# 0.07 X10^3/uL; Basophil% 0.6 % (0-1); Eosinophil# 0.18 X10^3/uL; Eosinophils% 1.4 % (0-5); Hematocrit 37.1 % (37-47); Hemoglobin 11.2 g/dL (12.0-15.0); Lymphocyte # 3.45 X10^3/ul (0.83-4.51); Lymphocyte % 27.4 % (19-41); Mean Corp Hgb Conc 30.2 g/dL (32-36); Mean Corpuscular Hgb 23.2 pg (27.0-32.0); Mean Platelet Vol. 10.6 fl (6.2-12.0); Monocyte# 1.01 X10^3/uL; NRBC Flagged by Analyzer 0 % (0-5); Neutrophil # 7.82 X10^3/uL (2.7-7.7); Neutrophil % 62.2 % (47-70); Platelet Count 338 K/mm3 (150-450); RBC Distribution Width CV 18.2 % (11.6-14.6); RBC Distribution Width SD 50.3 fl (35.1-43.9); Red Blood Count 4.82 M/mm3 (4.2-5.4); White Blood Count 12.6 K/mm3 (4.4-11.0)
[2022-10-12 19:25] LABS: Anion Gap 7 (5-15); BUN 10 mg/dL (7-18); BUN/Creat Ratio 12.8 RATIO (10-20); Calcium,Total 9.3 mg/dL (8.5-10.1); Chloride 104 mmol/L (98-107); Creatinine, Serum 0.78 mg/dL (0.55-1.02); EST Glomerular Filtration Rate 82 mL/min (>60); Est Glom Filt Rate - Afr Amer 100 mL/min (>60); Estimated Creatinine Clearance 92.27 ml/min; Glucose 82 mg/dL (74-106); Potassium 3.6 mmol/L (3.5-5.1); Sodium Level 137 mmol/L (136-145); Troponin-I HS (w/2H Reflex) 5 pg/mL (3.0-54.0)
[2022-10-12 20:32] VITALS: BP 147/81; PULSE 72; RESP 15; O2SAT 96
== END 2022-10-12 20:33 | disposition home or self-care (01) ==
PROVIDERS: Emergency Provider Emergency Medicine; PCP Internal Medicine; Visit Provider Emergency Medicine
DX: R07.9 Chest pain, unspecified (principal); M54.2 Cervicalgia; F41.9 Anxiety disorder, unspecified; Z79.899 Other long term (current) drug therapy; E03.9 Hypothyroidism, unspecified; Z79.1 Long term (current) use of non-steroidal anti-inflammatories (NSAID)
CPT/HCPCS: 71045; 72125; 80048; 84484; 85025; 93005; 99284; A4216

== ENCOUNTER 2023-01-24 21:09 | Emergency (ER) | payer OTHER, SELFPAY ==
[2023-01-24 21:09] VITALS: BP 149/83; PULSE 77; RESP 16; TEMP 36.6; O2SAT 98; BMI 29.6
[2023-01-24 22:27] LABS: Mucous, Urine 0 SEEN /hpf (<or=2+)
[2023-01-24 22:29] LABS: Absolute Lymphocyte Count 2.98 X10^3/uL (0.83-4.51); Absolute Neutrophil Count 8.5 X10^3/uL (2.0-7.7); Basophil# 0.08 X10^3/uL; Basophil% 0.6 % (0-1); Color, Urine Yellow (Yellow); Eosinophil# 0.29 X10^3/uL; Eosinophils% 2.3 % (0-5); Glucose, Dipstick Normal (Normal); Hematocrit 39.1 % (37-47); Hemoglobin 11.4 g/dL (12.0-15.0); Ketone-Dipstick 5 mg/dl (Negative); Leukocyte Esterase-Dipstick 100 /ul (Negative); Lymphocyte # 2.98 X10^3/ul (0.83-4.51); Lymphocyte % 23.3 % (19-41); Mean Corp Hgb Conc 29.2 g/dL (32-36); Mean Corpuscular Hgb 22.1 pg (27.0-32.0); Mean Corpuscular Volume 75.9 fL (81-99); Mean Platelet Vol. 10.2 fl (6.2-12.0); Monocyte# 0.88 X10^3/uL; Monocyte% 6.9 % (0-10); NRBC Flagged by Analyzer 0 % (0-5); Neutrophil # 8.51 X10^3/uL (2.7-7.7); Neutrophil % 66.4 % (47-70); Nitrite-Dipstick Negative (Negative); Occult Blood-Urine 25 /ul (Negative); Platelet Count 337 K/mm3 (150-450); Protein-Dipstick 15 mg/dl (Negative); RBC Distribution Width CV 18.1 % (11.6-14.6); RBC Distribution Width SD 48.6 fl (35.1-43.9); Red Blood Count 5.15 M/mm3 (4.2-5.4); Specific Gravity, Urine 1.015 (1.002-1.030); Urine Bilirubin Dipstick Negative (Negative); Urine Clarity Clear (Clear); Urine Urobilinogen 4 mg/dl (Normal); White Blood Count 12.8 K/mm3 (4.4-11.0)
[2023-01-24 22:35] LABS: Bacteria 1+ /hpf (None Seen); Red Blood Cells-Urine 0-5 SEEN /hpf (0-5); Squamous Epithelial Cells - UA 0-5 SEEN /hpf (5-10); White Blood Cells 0-5 SEEN /hpf (0-5)
[2023-01-24 22:45] LABS: ALB/GLOB Ratio 0.8 RATIO (0.9-2.4); AST(SGOT) 13 U/L (15-37); Alanine Aminotransfer ALT/SGPT 29 U/L (13-56); Albumin, Serum 3.5 g/dL (3.2-5.0); Alkaline Phosphatase 78 U/L (45-117); Anion Gap 5 (5-15); BUN 10 mg/dL (7-18); BUN/Creat Ratio 12.8 RATIO (10-20); Calcium,Total 8.8 mg/dL (8.5-10.1); Chloride 104 mmol/L (98-107); Creatinine, Serum 0.78 mg/dL (0.55-1.02); EST Glomerular Filtration Rate 83 mL/min (>60); Est Glom Filt Rate - Afr Amer 100 mL/min (>60); Estimated Creatinine Clearance 92.27 ml/min; Globulin 4.3 g/dL (2.2-4.2); Glucose 110 mg/dL (74-106); Potassium 3.5 mmol/L (3.5-5.1); Protein, Total 7.8 g/dL (6.4-8.2); Sodium Level 138 mmol/L (136-145)
[2023-01-24] MEDS: 0.9% Normal Saline 1,000 ML 999 ML IV (23:05)
[2023-01-24] MEDS: Ketorolac 30 MG/ML Syringe IV (23:05)
[2023-01-24 23:09] VITALS: RESP 16
[2023-01-24] MEDS: Ciprofloxacin 500 MG Tablet PO (23:50)
[2023-01-24] MEDS: Ondansetron 4 MG/2 ML Vial IV (23:50)
[2023-01-24] MEDS: DiphenhydrAMINE 50 MG/ML Syringe 25 MG IV (23:50)
[2023-01-24] MEDS: HYDROmorphone 1 MG/ML Syringe IV (23:50)
--- NOTE | 2023-01-25 00:24 | EDS_ITS ---
HPI History of Present Illness Chief Complaint: Flank Pain Informant: patient and spouse/S.O. Narrative Narrative: Patient is a 52-year-old female with past medical history of hypothyroidism and previous kidney stone roughly 1 year ago that required stenting and lithotripsy. She states that over the last 1 to 2 days she has been having intermittent left-sided flank pain. She denies any recent trauma or excessive activity. She denies any fevers chills or dysuria. She states that today the pain worsened and it does feel similar nature to her previous history of stone and therefore comes in for evaluation. [facility] Medical History Alcohol use Anxiety Back pain Fatty liver GERD (gastroesophageal reflux disease) Hypothyroid Low iron Non-smoker Renal calculus, right Home Medications duloxetine 60 mg capsule,delayed release 60 mg PO DAILY anxiety 08/22/19 [History Last Taken 02/04/22] levothyroxine 50 mcg tablet 50 mcg PO DAILY thyroid 08/22/19 [History Last Taken 02/04/22] trazodone 50 mg tablet 50 mg PO QHS sleep 08/22/19 [History Last Taken Unknown] ibuprofen 600 mg tablet 600 mg PO Q8H PRN PRN pain #20 tabs 01/25/22 [Rx Last Taken Unknown] ondansetron 4 mg disintegrating tablet 4 mg PO Q8H PRN nausea and vomiting #10 tabs 01/25/22 [Rx Last Taken Unknown] oxybutynin chloride 10 mg tablet,extended release 24 hr 10 mg PO DAILY 30 days #30 tabs 02/04/22 [Rx Last Taken Unknown] oxycodone-acetaminophen 5 mg-325 mg tablet 2 tab PO Q8H PRN PRN Pain 7 days #20 tabs 02/04/22 [Rx Last Taken Unknown] cephalexin 500 mg capsule 500 mg PO Q12 post-operative 3 days #6 CAPSULES 02/18/22 [Rx Last Taken Unknown] oxycodone-acetaminophen 5 mg-325 mg tablet 2 tab PO Q8H PRN PRN Pain 3 days #10 tabs 02/18/22 [Rx Last Taken Unknown] ciprofloxacin HCl 500 mg tablet (Cipro) 500 mg PO BID 7 days #14 tabs 01/25/23 [Rx Last Taken Unknown] ketorolac 10 mg tablet 10 mg PO Q6H PRN pain 5 days #20 tabs 01/25/23 [Rx Last Taken Unknown] ondansetron 4 mg disintegrating tablet 4 mg PO TID PRN nausea and vomiting #21 tabs 01/25/23 [Rx Last Taken Unknown] oxycodone-acetaminophen 5 mg-325 mg tablet (Percocet) 1 tab PO Q6H PRN pain 5 days #20 tabs 01/25/23 [Rx Last Taken Unknown] tamsulosin 0.4 mg capsule (Flomax) 0.4 mg PO DAILY 14 days #14 caps 01/25/23 [Rx Last Taken Unknown] Allergy/AdvReac Type Severity Reaction Status Date / Time No Known Allergies Allergy Verified 01/24/23 21:09 Family History Mother Heart disease Thyroid disorder Breast cancer Aunt Breast cancer Surgical History History of lithotripsy History of removal of cyst Social History Smoking Status: Never smoker ROS ROS ED Constitutional Constitutional ED: Denies chills or fever(s) ENT ENT ED: Denies sore throat Cardiovascular Cardiovascular: Denies chest pain Respiratory/Chest Respiratory/Chest: Denies cough or dyspnea Gastrointestinal Gastrointestinal: Reports abdominal pain and nausea; Denies diarrhea or vomiting Genitourinary Genitourinary ED: Reports other Details: Positive left flank pain ; Denies dysuria Musculoskeletal Musculoskeletal: Reports back pain; Denies myalgias Integumentary Denies rash Neurologic Neurologic: Denies headache(s) Hematologic/Lymphatic Hematologic/Lymphatic: Denies easy bleeding or easy bruising EXAM Physical Exam Const Vital Signs: 01/24/23 21:09 01/24/23 23:09 Temperature 97.8 F Temperature Source Temporal Pulse Rate 77 Respiratory Rate 16 16 Blood Pressure 149/83 H Blood Pressure Mean 105 Pulse Ox 98 Positive well nourished and well developed General Appearance ED: well developed HEENT HEENT Narrative: Normocephalic atraumatic Eyes PERRL and EOMs intact bilaterally Neck supple Resp normal respiratory effort and clear to auscultation bilaterally Cardio regular rate and regular rhythm Rate: other Other Details: Radial pulses are plus 2 out of 4 bilaterally are equal and symmetric GI non-distended GI Narrative: Mild pain with palpation in the left mid to upper abdomen without voluntary guarding or rigidity. No pulsatile mass or fluid wave Auscultation: normoactive bowel sounds Palpation: soft Back/Spine Back/Spine Narrative: Positive left CVA pain with palpation Extremity normal to inspection Neuro oriented x3 and CN's II-XII intact bilaterally Sensorium / Orientation: alert Motor Exam: strength 5/5 throughout Psych mental status grossly normal Skin no rashes or lesions noted Skin Narrative: No overlying soft tissue changes to suggest trauma or infection MDM MDM MDM Narrative Medical decision making narrative: Patient presented to the ER with stable vitals and reported sharp flank pain wrapping towards her left groin most consistent with kidney stone. Differential diagnosis is for kidney stone versus pyelonephritis versus lumbosacral strain versus shingles. Patient does not have any type of soft tissue changes suggest shingles and urine sample shows slight bacteria but no white blood cells therefore this could be contamination versus normal rafal versus infection. The patient did a CT scan roughly 1 year ago which showed a small stone in the left kidney. With the patient's history and exam and blood on urination this is most likely renal colic secondary to the previous stone noted a year ago. At this time she has had resolution of pain she does not have NATALIE or urosepsis and therefore patient can be discharged home and follow-up with urology on an outpatient basis History & Record Review Discussion w/independent historian: Patient and Significant other Lab Data Attestation: I reviewed the patient's lab results. Labs: Laboratory Results - last 24 hr 01/24/23 22:17 WBC 12.8 H RBC 5.15 Hgb 11.4 L Hct 39.1 MCV 75.9 L MCH 22.1 L MCHC 29.2 L RDW Std Deviation 48.6 H RDW Coeff of Armando 18.1 H Plt Count 337 MPV 10.2 Immature Gran % (Auto) 0.500 Neut % (Auto) 66.4 Lymph % (Auto) 23.3 [place] % (Auto) 6.9 Eos % (Auto) 2.3 Baso % (Auto) 0.6 Absolute Neuts (auto) 8.5 H Absolute Lymphs (auto) 2.98 Nucleated RBC % 0 Sodium 138 Potassium 3.5 Chloride 104 Carbon Dioxide 29.0 Anion Gap 5 BUN 10 Creatinine 0.78 Estim Creat Clear Calc 92.27 Est GFR (MDRD) Af Amer 100 Est GFR (MDRD) Non-Af 83 BUN/Creatinine Ratio 12.8 Glucose 110 H Calcium 8.8 Total Bilirubin 0.40 AST 13 L ALT 29 Alkaline Phosphatase 78 Total Protein 7.8 Albumin 3.5 Globulin 4.3 H Albumin/Globulin Ratio 0.8 L Urine Color Yellow Urine Clarity Clear Urine pH 7.0 Ur Specific Salome 1.015 Urine Protein 15 H Urine Glucose (UA) Normal Urine Ketones 5 H Urine Occult Blood 25 H Urine Nitrite Negative Urine Bilirubin Negative Urine Urobilinogen 4 H Ur Leukocyte Esterase 100 H Urine RBC 0-5 SEEN Urine WBC 0-5 SEEN Ur Squamous Epith Cells 0-5 SEEN Urine Bacteria 1+ Urine Mucus 0 SEEN Discharge Plan Triage Chief Complaint: Flank Pain ED Provider: Ridge Bates Dx/Rx/DC Orders Clinical Impression: Renal colic, Kidney stone, Hypothyroid Instructions: ED Kidney Stone w/ Colic Prescriptions: New ciprofloxacin HCl [Cipro] 500 mg tablet 500 mg PO BID 7 Days Qty: 14 0RF oxycodone-acetaminophen [Percocet] 5-325 mg tablet 1 tab PO Q6H PRN (Reason: pain) 5 Days Qty: 20 0RF ketorolac 10 mg tablet 10 mg PO Q6H PRN (Reason: pain) 5 Days Qty: 20 0RF tamsulosin [Flomax] 0.4 mg capsule 0.4 mg PO DAILY 14 Days Qty: 14 0RF ondansetron 4 mg tablet,disintegrating 4 mg PO TID PRN (Reason: nausea and vomiting) Qty: 21 0RF No Action trazodone 50 mg tablet 50 mg PO QHS levothyroxine 50 mcg tablet 50 mcg PO DAILY duloxetine 60 mg capsule,delayed release(DR/EC) 60 mg PO DAILY Patient Comments: TAKE ONE CAPSULE BY MOUTH EVERY MORNING WITH FOOD ibuprofen 600 mg tablet 600 mg PO Q8H PRN PRN (Reason: pain) Qty: 20 0RF ondansetron 4 mg tablet,disintegrating 4 mg PO Q8H PRN (Reason: nausea and vomiting) Qty: 10 0RF oxycodone-acetaminophen 5-325 mg tablet 2 tab PO Q8H PRN PRN (Reason: Pain) 7 Days Qty: 20 0RF oxybutynin chloride 10 mg tablet extended release 24hr 10 mg PO DAILY 30 Days Qty: 30 0RF oxycodone-acetaminophen [oxycodone-acetaminophen] 5-325 mg tablet 2 tab PO Q8H PRN PRN (Reason: Pain) 3 Days Qty: 10 0RF cephalexin [cephalexin] 500 mg capsule 500 mg PO Q12 3 Days Qty: 6 0RF Primary Care Provider: Diana Watt Referrals: Diana Watt DO [Primary Care Provider] - Kerethi Barnes MD [Med Staff - Active Staff] - Activity Restrictions/Additional Instructions: Please follow-up with urology to discuss need for lithotripsy and/or stent placement for your stone. If you develop a fever over 100.4 or your pain is not controlled with the prescribed medications please return for repeat evaluation Disposition Disposition: Home, Self Care Discharge Date/Time: 01/25/23 00:34
== END 2023-01-25 00:34 | disposition home or self-care (01) ==
PROVIDERS: Emergency Provider Emergency Medicine; PCP Internal Medicine; Visit Provider Emergency Medicine
DX: N20.0 Calculus of kidney (principal); E03.9 Hypothyroidism, unspecified
CPT/HCPCS: 80053; 81001; 85025; 87086; 96361; 96374; 96375; 99284; J7030; A4216; J2405

== ENCOUNTER → 2023-01-27 | Outpatient (CLI) | payer OTHER, SELFPAY ==
--- NOTE | 2023-01-27 16:57 | CT_ITS ---
EXAM: CT Abdomen And Pelvis W/O Contrast Injection HISTORY: KIDNEY STONE TECHNIQUE: Routine protocol CT abdomen and pelvis. IV Contrast: None.. Oral contrast: None. RADIATION DOSAGE (If Supplied By Facility): CTDIvol = ( 9.70 ) mGy, DLP = ( 508.89 ) mGycm Individualized dose optimization techniques were used for this CT. COMPARISON: CT abdomen and pelvis 01/25/2022. LIMITATIONS: None. FINDINGS: LOWER CHEST: Included lung bases are clear. Small hiatal hernia. LIVER: Grossly unremarkable. GALLBLADDER AND BILIARY TREE: Grossly unremarkable. PANCREAS: Grossly unremarkable. SPLEEN: Grossly unremarkable. ADRENAL GLANDS: Grossly unremarkable. KIDNEYS AND URETERS: Small calculi in both kidneys. No hydronephrosis. There is a 1.8 cm exophytic structure left kidney upper pole not completely characterized, appears similar to prior PERITONEUM: No free air. Small amount of free fluid in the pelvis. BOWEL: No bowel obstruction. Moderate amount of stool throughout the colon. APPENDIX: Visualized and unremarkable. No evidence of acute appendicitis. VESSELS: Abdominal aorta is normal caliber. REPRODUCTIVE ORGANS: Grossly unremarkable URINARY BLADDER: Minimally distended. ABDOMINAL WALL: Unremarkable. BONES: No acute abnormalities. CT/Abdomen/Pelvis without Cont IMPRESSION: No acute findings. Bilateral nephrolithiasis without hydronephrosis. Left renal lesion 1.8 cm not completely characterized and not significantly changed. Recommend follow-up imaging renal ultrasound , MRI or CT abdomen and pelvis without and with IV contrast one year. Electronically Signed: Laila Blanca MD at 18:23 EDT ,
== END | disposition home or self-care (01) ==
LOC: CT 16:54
PROVIDERS: PCP Internal Medicine; Referring Provider Urology; Visit Provider Urology
DX: N20.0 Calculus of kidney (principal)
CPT/HCPCS: 74176

== ENCOUNTER → 2023-02-23 | Outpatient (CLI) | payer OTHER, SELFPAY ==
--- NOTE | 2023-02-23 12:56 | US_ITS ---
INDICATION: thyroid nodule EXAMINATION: Ultrasound US Thyroid (eg thyroid, parathyroid, parotid) TECHNIQUE: Oconnor scale and color doppler imaging was performed of the thyroid gland. COMPARISON: November 26, 2021 FINDINGS: RIGHT THYROID LOBE: 5.9 x 2.1 x 2.1 cm. Heterogeneous echotexture with normal vascularity. [Hypoechoic 7 x 8 x 5 mm nodule similar to previous study. LEFT THYROID LOBE: 5.3 x 2 x 1.8 cm. Heterogeneous echotexture with normal vascularity. [1.1 x 0.8 x 0.3 cm predominantly hypoechoic nodule, similar to previous study. Possibly new 1 x 0.5 x 0.9 cm hypoechoic nodule. ISTHMUS: 3.9 mm. No thyroid nodules are present. US/Thyroid IMPRESSION: Heterogeneous thyroid lobes with hypoechoic exogenous nodules bilaterally. Electronically Signed: Jose Flores DO at 20:17 EDT ,
== END | disposition home or self-care (01) ==
PROVIDERS: PCP Internal Medicine; Referring Provider Internal Medicine; Visit Provider Internal Medicine
DX: E04.1 Nontoxic single thyroid nodule (principal)
CPT/HCPCS: 76536

== ENCOUNTER → 2023-05-13 | Outpatient (CLI) | payer OTHER, SELFPAY ==
--- NOTE | 2023-05-13 08:16 | BI_ITS ---
MAMMOGRAPHY - BILATERAL SCREENING REASON FOR EXAM: Female, 53 years old. Routine annual screening examination. PERTINENT HISTORY: Mother with breast cancer. Aunt with breast cancer. TECHNIQUE: Digital bilateral breast faith (3D mammographic acquisition) in the CC and MLO projections. 2-D mediolateral oblique (MLO) and craniocaudad (CC) views of both breasts were obtained. CAD: Full Field Digital Mammography with Computer Added Detection was performed. COMPARISON: Comparison is made with prior study dated May 12, 2022 and November 20, 2020. FINDINGS: Breast Composition: The breasts are heterogeneously dense, which may obscure small masses. There are no dominant masses or suspicious calcifications. Stable 7.4 mm well-defined nodule in the axillary region of the right breast most likely representing a small lymph node. No other significant abnormalities are identified. There has been no significant change since the prior study. BI/SCRN MAMM (CAD)W/FAITH BILAT IMPRESSION: Stable bilateral screening mammogram. Yearly follow-up mammogram recommended. (A) ASSESSMENT CATEGORY: BIRADS Category 2: Benign. A letter regarding these results will be sent to the patient by the facility within 30 days. Approximately 10% of breast cancers are not detected by mammography. A normal mammogram should not delay biopsy of a clinically suspicious abnormality. [id number] Electronically Signed: Adin Marshall MD at 9:51 EST ,
== END | disposition home or self-care (01) ==
LOC: OPBI 08:16
PROVIDERS: PCP Internal Medicine; Referring Provider Internal Medicine; Visit Provider Internal Medicine
DX: Z12.31 Encounter for screening mammogram for malignant neoplasm of breast (principal); Z80.3 Family history of malignant neoplasm of breast
CPT/HCPCS: 77063; 77067

== ENCOUNTER → 2023-08-29 | Outpatient (CLI) | payer OTHER, SELFPAY ==
[2023-08-29 16:49] LABS: Ferritin 11 ng/mL (8-252)
[2023-08-31 15:08] LABS: Endomysial Antibody IgA Negative (Negative); Immunoglobulin A 434 mg/dL (87-352); t-Transglutaminase IgA <2 U/mL (0-3)
== END | disposition home or self-care (01) ==
PROVIDERS: PCP Internal Medicine; Referring Provider Internal Medicine Gastroenterology; Visit Provider Internal Medicine Gastroenterology
DX: D50.9 Iron deficiency anemia, unspecified (principal)
CPT/HCPCS: 36415; 82728; 82784; 83516; 86255

== ENCOUNTER → 2024-03-09 | Outpatient (CLI) | payer OTHER, SELFPAY ==
--- NOTE | 2024-03-09 08:38 | US_ITS ---
EXAM: US ABDOMEN LIMITED, RIGHT UPPER QUADRANT CLINICAL INDICATION: fatty liver TECHNIQUE: Real-time ultrasound of the right upper quadrant with image documentation. COMPARISON: No relevant prior studies available. FINDINGS: LIVER: Normal. There is normal echotexture. No focal hepatic lesion. No intrahepatic biliary ductal dilation. GALLBLADDER: Normal. No shadowing gallstone. No gallbladder wall thickening is demonstrated. No pericholecystic fluid. Negative sonographic Todd''s sign. COMMON BILE DUCT: Unremarkable as visualized. The proximal common bile duct is normal size. PANCREAS: Unremarkable as visualized. No focal abnormality is demonstrated in the pancreas. No pancreatic ductal dilatation. RIGHT KIDNEY: 10 mm upper pole right renal cyst. No specific follow-up indicated. There is no hydronephrosis. No shadowing calculus. US/Abdomen Limited IMPRESSION: No acute findings in the right upper quadrant. Electronically Signed: Ezequiel Dent MD at 13:25 EDT ,
--- NOTE | 2024-03-09 08:38 | US_ITS ---
EXAM: US SOFT TISSUES HEAD AND NECK, THYROID CLINICAL INDICATION: thyroid nodule TECHNIQUE: Oconnor scale and color doppler imaging was performed of the thyroid gland. COMPARISON: No relevant prior studies available. FINDINGS: LEFT THYROID LOBE: Left thyroid lobe measures 5.4 x 2.3 x 1.8 cm. Stable abnormal heterogeneous echotexture containing complex cystic lesions with nodular and vermiform configuration. RIGHT THYROID LOBE: Right thyroid lobe measures 5.9 x 2.2 x 1.5 cm. Stable diffusely heterogeneous echo pattern containing solid and cystic components. ISTHMUS: Isthmus measures 6 mm in AP dimension. No thyroid nodules are present. US/Thyroid IMPRESSION: Stable thyroid gland echotexture suggestive of multinodular goiter/chronic thyroiditis. Electronically Signed: Ezequiel Dent MD at 13:20 EDT ,
== END | disposition home or self-care (01) ==
LOC: US 08:35
PROVIDERS: PCP Internal Medicine; Referring Provider Internal Medicine; Visit Provider Internal Medicine
DX: K76.0 Fatty (change of) liver, not elsewhere classified (principal); E04.1 Nontoxic single thyroid nodule
CPT/HCPCS: 76536; 76705

== ENCOUNTER 2024-04-15 21:33 | Emergency (ER) | payer OTHER, SELFPAY ==
[2024-04-15 21:33] VITALS: BP 146/83; PULSE 65; RESP 19; TEMP 36.1; O2SAT 100; BMI 28.9
[2024-04-15] MEDS: Naproxen 500 MG Tablet PO (21:49)
[2024-04-15] MEDS: HYDROcodone Bitartrate/Apap 5/325 Tablet PO (21:50)
--- NOTE | 2024-04-15 21:51 | EX.ED.DYSGE1 ---
HPI History of Present Illness Chief Complaint: Flank Pain Detail of Chief Complaint: Left lower back pain/not flank Informant: patient Onset/Context/Timing Onset: Today Context: Sudden Onset Timing: Continuous Quality: Pain Location: Left lower back/paralumbar Current Severity: Mild Maximum Severity: Moderate Worsened by: Certain movements Relieved by: Nothing Associated Symptoms Associated Symptoms: None Narrative Narrative: Patient is a 53-year-old woman. She has history of GERD, recent CAT scan that revealed bilateral renal calculi, left lower back pain, GERD, hypothyroidism and anxiety. Pain started somewhat abruptly. She denies dysuria, frequency, urgency or hematuria. She initially stated nothing makes it better or worse. She denies fever, chills night sweats. She denies abdominal pain. She is presently on her menstrual cycle. Prior similar symptoms: Yes Recent Illness/Hospitalization: No PFSH PFS Medical History Renal calculus, right Alcohol use Low iron Fatty liver Non-smoker Hypothyroid Back pain GERD (gastroesophageal reflux disease) Anxiety Home Medications ?Medication ?Instructions ?Recorded ?Last Taken ?Type duloxetine 60 mg capsule,delayed 60 mg PO DAILY anxiety 08/22/19 02/04/22 History release levothyroxine 50 mcg tablet 50 mcg PO DAILY thyroid 08/22/19 02/04/22 History trazodone 50 mg tablet 50 mg PO QHS sleep 08/22/19 Unknown History ibuprofen 600 mg tablet 600 mg PO Q8H PRN PRN pain #20 tabs 01/25/22 Unknown Rx ondansetron 4 mg disintegrating 4 mg PO Q8H PRN nausea and 01/25/22 Unknown Rx tablet vomiting #10 tabs oxybutynin chloride 10 mg 10 mg PO DAILY 30 days #30 tabs 02/04/22 Unknown Rx tablet,extended release 24 hr oxycodone-acetaminophen 5 mg-325 2 tab PO Q8H PRN PRN Pain 7 days 02/04/22 Unknown Rx mg tablet #20 tabs cephalexin 500 mg capsule 500 mg PO Q12 post-operative 3 02/18/22 Unknown Rx days #6 CAPSULES oxycodone-acetaminophen 5 mg-325 2 tab PO Q8H PRN PRN Pain 3 days 02/18/22 Unknown Rx mg tablet #10 tabs ciprofloxacin HCl 500 mg tablet 500 mg PO BID 7 days #14 tabs 01/25/23 Unknown Rx (Cipro) ketorolac 10 mg tablet 10 mg PO Q6H PRN pain 5 days #20 01/25/23 Unknown Rx tabs ondansetron 4 mg disintegrating 4 mg PO TID PRN nausea and 01/25/23 Unknown Rx tablet vomiting #21 tabs oxycodone-acetaminophen 5 mg-325 1 tab PO Q6H PRN pain 5 days #20 01/25/23 Unknown Rx mg tablet (Percocet) tabs tamsulosin 0.4 mg capsule (Flomax) 0.4 mg PO DAILY 14 days #14 caps 01/25/23 Unknown Rx hydrocodone-acetaminophen 5-325mg 1 tab PO Q6H PRN PRN Pain 3 days 04/15/24 Unknown Rx 5mg-325mg #10 TABLETS naproxen 500 mg tablet 500 mg PO BID #14 tabs 04/15/24 Unknown Rx Allergy/AdvReac Type Severity Reaction Status Date / Time No Known Allergies Allergy Verified 04/15/24 21:34 Family History Mother Heart disease Thyroid disorder Breast cancer Aunt Breast cancer Surgical History History of removal of cyst History of lithotripsy Social History (Updated 04/15/24 @ 21:[address] Ben Moise MD) household members: spouse Smoking Status: Never smoker ROS ROS ED Constitutional Constitutional ED: Denies chills or fever(s) Gastrointestinal Gastrointestinal: Denies abdominal pain, nausea or vomiting Genitourinary Genitourinary ED: Denies dysuria, hematuria or urinary frequency Musculoskeletal Musculoskeletal: Reports back pain; Denies arthralgias, myalgias or neck pain Integumentary Denies rash EXAM Physical Exam Const Vital Signs: 04/15/24 21:33 Temperature 96.9 F L Temperature Source Temporal Pulse Rate 65 Respiratory Rate 19 H Blood Pressure 146/83 H Blood Pressure Mean 104 Pulse Ox 100 Oxygen Delivery Method Room Air Positive well nourished and well developed Constitutional Narrative: Patient was observed walking from triage to room. She did not have a limp but had slight discomfort. Vital signs are marked for an elevated blood pressure 146/83. General Appearance ED: well developed and NAD; Negative for pallor HEENT Reports moist mucous membranes HEENT Narrative: Has atraumatic normocephalic. Ears normal. Eyes PERRL and EOMs intact bilaterally General Eye ED: Negative for scleral icterus Neck no lymphadenopathy, supple and no JVD Resp normal respiratory effort Cardio regular rate and regular rhythm GI normal to inspection, nondistended, normoactive bowel sounds, non-tender, non-distended and no masses; Negative for hepatosplenomegaly Back/Spine no CVA tenderness Back/Spine Narrative: Left paralumbar discomfort. Having patient bent to the right and left causes discomfort on the left side. Pain is worse when she bends to the left side. Flexion extension causes some discomfort left side only. Worse with flexion. Gait observed with no foot drop. EHLs intact. Patella and ankle reflex are 2+ and symmetric. She has normal sensation. Pain is reproducible with palpation. Plantar and dorsi flexion is 5/5. Flexion at the hip is 5 out of 5. Lumbar Spine / Lower Back: lumbar spinal tenderness Extremity normal to inspection Neuro oriented x3, CN's II-XII intact bilaterally and no sensory deficits noted Sensorium / Orientation: alert Motor Exam: strength 5/5 throughout Psych mental status grossly normal Skin no rashes or lesions noted, no wounds and skin turgor normal General Skin Exam: Negative for elasticity normal, jaundice or pallor MDM MDM MDM Narrative Medical decision making narrative: Patient with muscular low back pain. Reproducible. There is no concern for epidural abscess or spontaneous epidural hematoma. There is no concern for sciatica. In my opinion imaging is not indicated nor is any blood work. Patient was treated with NSAID and opiate analgesia. Discharge Plan Triage Chief Complaint: Flank Pain ED Provider: Ben Moise Dx/Rx/DC Orders Clinical Impression: Acute left-sided low back pain, Hypothyroid, Calculus of both kidneys Instructions: ED Back Pain (Acute or Chronic), ED Back and Neck Pain, General Prescriptions: New hydrocodone-acetaminophen 5-325 mg tablet 1 tab PO Q6H PRN PRN (Reason: Pain) 3 Days Qty: 10 0RF naproxen 500 mg tablet 500 mg PO BID Qty: 14 0RF No Action trazodone 50 mg tablet 50 mg PO QHS levothyroxine 50 mcg tablet 50 mcg PO DAILY duloxetine 60 mg capsule,delayed release(DR/EC) 60 mg PO DAILY Patient Comments: TAKE ONE CAPSULE BY MOUTH EVERY MORNING WITH FOOD ibuprofen 600 mg tablet 600 mg PO Q8H PRN PRN (Reason: pain) Qty: 20 0RF ondansetron 4 mg tablet,disintegrating 4 mg PO Q8H PRN (Reason: nausea and vomiting) Qty: 10 0RF oxycodone-acetaminophen 5-325 mg tablet 2 tab PO Q8H PRN PRN (Reason: Pain) 7 Days Qty: 20 0RF oxybutynin chloride 10 mg tablet extended release 24hr 10 mg PO DAILY 30 Days Qty: 30 0RF oxycodone-acetaminophen [oxycodone-acetaminophen] 5-325 mg tablet 2 tab PO Q8H PRN PRN (Reason: Pain) 3 Days Qty: 10 0RF cephalexin [cephalexin] 500 mg capsule 500 mg PO Q12 3 Days Qty: 6 0RF ciprofloxacin HCl [Cipro] 500 mg tablet 500 mg PO BID 7 Days Qty: 14 0RF oxycodone-acetaminophen [Percocet] 5-325 mg tablet 1 tab PO Q6H PRN (Reason: pain) 5 Days Qty: 20 0RF ketorolac 10 mg tablet 10 mg PO Q6H PRN (Reason: pain) 5 Days Qty: 20 0RF tamsulosin [Flomax] 0.4 mg capsule 0.4 mg PO DAILY 14 Days Qty: 14 0RF ondansetron 4 mg tablet,disintegrating 4 mg PO TID PRN (Reason: nausea and vomiting) Qty: 21 0RF Primary Care Provider: Diana Watt Referrals: Diana Watt DO [Primary Care Provider] - 1 Week if not improving Print Language: Serbian Disposition Disposition: Home, Self Care
[2024-04-15 22:05] VITALS: BP 141/84; PULSE 67; RESP 16; TEMP 36.9; O2SAT 100
== END 2024-04-15 22:06 | disposition home or self-care (01) ==
LOC: ED 21:56
PROVIDERS: Emergency Provider Emergency Medicine; PCP Internal Medicine; Visit Provider Emergency Medicine
DX: N20.0 Calculus of kidney (principal); E03.9 Hypothyroidism, unspecified; F41.9 Anxiety disorder, unspecified; M54.50 Low back pain, unspecified; Z79.899 Other long term (current) drug therapy
CPT/HCPCS: 99282

== ENCOUNTER 2024-05-18 08:53 | Outpatient (CLI) | payer OTHER, SELFPAY ==
[2024-05-18 09:01] VITALS: BP 144/70; PULSE 59; RESP 16; TEMP 36.1; O2SAT 98; BMI 27.2
[2024-05-18] MEDS: 0.9% NaCl Peripheral Flush Adult/Peds IV (09:11)
[2024-05-18] MEDS: 0.9% NaCl IVPB Med Flush (250 mL) 15 ML IV (09:11)
[2024-05-18] MEDS: Sodium Ferric Gluconat/Sucrose 125 MG in 0.9% Normal Saline (100mL Bag) 100 ML 110 MG IV (09:12)
[2024-05-18 10:23] VITALS: BP 122/66; PULSE 58; RESP 16; TEMP 36.4; O2SAT 100
[2024-05-18 10:56] VITALS: BP 118/69; PULSE 54; RESP 16; TEMP 35.8; O2SAT 99
== END 2024-05-18 23:59 | disposition home or self-care (01) ==
LOC: MEDOUTP 08:53
PROVIDERS: PCP Internal Medicine; Referring Provider Internal Medicine; Visit Provider Internal Medicine
DX: D50.9 Iron deficiency anemia, unspecified (principal)
CPT/HCPCS: 96365; 96361; A4216; J2916

== ENCOUNTER 2024-05-23 08:44 | Outpatient (CLI) | payer OTHER, SELFPAY ==
[2024-05-23 08:49] VITALS: BP 148/98; PULSE 77; RESP 16; TEMP 35.6; O2SAT 98
[2024-05-23] MEDS: 0.9% NaCl Peripheral Flush Adult/Peds IV (08:51)
[2024-05-23] MEDS: 0.9% NaCl IVPB Med Flush (250 mL) 15 ML IV (09:12)
[2024-05-23] MEDS: Sodium Ferric Gluconat/Sucrose 125 MG in 0.9% Normal Saline (100mL Bag) 100 ML 110 MG IV (09:30)
[2024-05-23 10:40] VITALS: BP 136/75; PULSE 62
== END 2024-05-23 23:59 | disposition home or self-care (01) ==
LOC: MEDOUTP 08:44
PROVIDERS: PCP Internal Medicine; Referring Provider Internal Medicine; Visit Provider Internal Medicine
DX: D50.9 Iron deficiency anemia, unspecified (principal)
CPT/HCPCS: 96365; A4216; J2916

== ENCOUNTER → 2025-04-09 | Outpatient (CLI) | payer OTHER, SELFPAY ==
--- NOTE | 2025-04-09 15:29 | US_ITS ---
PROCEDURE: THYROID 04/09/2025 REASON FOR EXAM: THYROID ULTRASOUND - THYROID NODULE TECHNIQUE: Procedure Code: USTHY Modality: US Procedure: THYROID COMPARISON: Prior sonogram dated March 09, 2024. FINDINGS: Right thyroid lobe size: 6.2 cm x 2.1 cm 2.2 cm Left thyroid lobe size: 5.6 cm x 2.1 cm 1.9 cm Isthmus: 0.5 cm Background parenchymal echotexture is heterogeneous Nodules: . Lobe: Right, Location: Midpole, Size: 0.7 cm x 0.8 cm 0.6 cm, Stability: Stable Composition: Solid or almost completely solid (+2) Echogenicity: Hypoechoic (+2) Margin: Smooth (+0) Shape: Wider than tall (+0) Echogenic Foci: None (+0) TI-RADS: 4 . Lobe: Left, Location: Midpole, Size: 1.1 cm x 0.7 cm 0.3 cm, Stability: Stable Composition: Mixed cystic and solid (+1) Echogenicity: Hypoechoic (+2) Margin: Smooth (+0) Shape: Wider than tall (+0) Echogenic Foci: None (+0) Tie rads 3. Stable 8 mm x 6 mm x 5 mm solid/cystic nodule in the superior pole. US/Thyroid IMPRESSION: Stable enlargement of the thyroid gland with heterogeneous echotexture. Stable bilateral thyroid nodules. RECOMMENDATION: Based on most suspicious nodule. Nodule size = largest diameter Only evaluate nodule if =>5 mm. Growth > 20% in 2 dimensions = worsening. Follow up to 4 nodules. Recommend biopsy for no more than 2 nodules. Reading Location: [id number]
--- NOTE | 2025-04-09 15:29 | US_ITS ---
PROCEDURE: PELVIC (NON ) 04/09/2025 REASON FOR EXAM: COMPLETE US OF PELVIS - MENORRHAGIA TECHNIQUE: Procedure Code: USPEL Modality: US Procedure: PELVIC (NON ) COMPARISON: None FINDINGS: Uterus measures 9.6 x 6.2 x 4.4 cm. Fibroids are noted within the uterus measuring 1.1 x 0.9 x 0.5 cm and 1.3 x 1.5 x 1.1 cm. Endometrial thickness measures 6 mm and is hyperechoic. Nabothian cysts are noted within the cervix. Right ovary measures 2.5 x 1.6 x 1.3 cm and left ovary measures 2.4 x 1.9 x 1.7 cm. There is normal bilateral symmetrical flow within bilateral ovaries. No significant free fluid within the cul-de-sac. US/Pelvic (Non ) IMPRESSION: Uterine fibroids. Endometrial thickness measures 6 mm and is hyperechoic. Reading Location: [id number]
== END | disposition home or self-care (01) ==
PROVIDERS: PCP Internal Medicine; Referring Provider Internal Medicine; Visit Provider Internal Medicine
DX: E04.1 Nontoxic single thyroid nodule (principal); N92.0 Excessive and frequent menstruation with regular cycle
CPT/HCPCS: 76536; 76856

== ENCOUNTER → 2025-04-16 | Outpatient (CLI) | payer OTHER, SELFPAY ==
--- NOTE | 2025-04-16 19:00 | CT_ITS ---
PROCEDURE: CT CHEST WITHOUT CONTRAST 04/16/2025 REASON FOR EXAM: Shortness of breath, chronic. TECHNIQUE: Chest CT without contrast. Coronal and Sagittal reconstruction series were provided. One or more dose reduction techniques were used (e.g., Automated exposure control, adjustment of the mA and/or kV according to patient size, use of iterative reconstruction technique RADIATION DOSE SUMMARY: CTDlvol: 13.09 mGy DLP: 507.11 mGycm COMPARISON: None. FINDINGS: Lungs/pleura: Clear. No airspace consolidation/edema, pneumothorax or pleural effusion. Mediastinum: No suspicious lymph node enlargement, although hilar evaluation is limited. Heart and Vasculature: Normal in size. No pericardial effusion. Scant coronary artery calcifications. Normal course and caliber of the thoracic aorta. Upper Abdomen: Small hiatal hernia. Simple appearing cyst in the upper pole of the right kidney measuring 3.4 cm. Few punctate nonobstructive right renal stones. No hydronephrosis. Bones: Minimal degenerative changes of the thoracic spine. CT/Chest without Contrast IMPRESSION: No acute intrathoracic abnormality. No airspace disease. Small hiatal hernia. Few punctate nonobstructive right renal stones. Reading Location: [id number]
--- OUTSIDE RECORDS SUMMARY | 2025-04-16 19:26 | XMS RPT_ITS | CCD ---
Author Organization [facility] Care Team Providers Care Adding Machine Mechanic Name Role Phone Fast, Sandeep A Unavailable Manchak, Trinh Unavailable Unavailable Slarb, Allison Unavailable Unavailable Unavailable Unavailable Fast, Sandeep A Unavailable [facility] Unavailable Manchak, Trinh Unavailable Unavailable Slarb, Allison Unavailable Unavailable Unavailable Unavailable Manchak, Trinh Unavailable Unavailable Fast DO, Sandeep A Unavailable Manchak TRICK RODEO RIDER, Trinh Unavailable Unavailable Slarb TORCH BRAZER, Allison Unavailable Unavailable Unavailable Unavailable Dr. Gael Winkler Unavailable Shon HERRERA, Soha Unavailable Nate Mcneill LPN Unavailable Unavailable Unavailable Unavailable Friend, Dr. Esquivel Unavailable Fast DO, Sandeep A Unavailable Queenie Todd MA Unavailable Unavailable Geeta AVENDANO, Henry Reyes Unavailable [facility], [facility] Unavailable Keerthi Barnes Unavailable Shukri, Dr. Ortiz Primary Care Provider [phone] Shukri, Dr. Ortiz Referring Provider Shukri, Dr. Ortiz Other Provider Dr. Cooper Aldana Attending Provider Shukri, Dr. Ortiz Primary Care Provider Shukri, Dr. Ortiz Referring Provider Fast, Dr. Ortiz Other Provider Dr. Cooper Aldana Attending Provider Fast DO, Sandeep A Attending Unavailable Fast DO, Sandeep A Consulting Unavailable [facility] Unavailable [phone] ALISIA GILLIS Unavailable Fast DO, Sandeep A Primary Care Provider FAST, SANDEEP A Referring Unavailable FAST, SANDEEP A Primary Care Unavailable Fast DO, Dr. Ortiz Primary Care Provider [phone] Joaquin AVENDANO, Dr. Mccray Attending Provider Fast, Sandeep Attending Unavailable Fast, Sandeep Referring Unavailable Fast, Sandeep Primary Care Unavailable Fast, Sadneep Primary Care Unavailable Fast, Sandeep Attending Unavailable Fast, Sandeep Referring Unavailable Mahendra Nuñez Attending Unavailable Fast, Sandeep Primary Care Unavailable Fast, Sandeep Primary Care Unavailable Fast, Sandeep Attending Unavailable Fast, Sandeep Referring Unavailable Fast, Sandeep Primary Care Unavailable Fast, Sandeep Attending Unavailable Fast, Sandeep Referring Unavailable Fast, Sandeep Primary Care Unavailable Fast, Sandeep Attending Unavailable Fast, Sandeep Referring Unavailable Moise, Ben Attending Unavailable Fast, Sandeep Primary Care Unavailable Allergies Allergy Classification Reported Allergen(s) Allergy Type Date of Onset Reaction(s) Facility (6 sources) Acetaminophen / oxyCODONE Drug Allergy [facility]; [facility] Work Phone: Comment on above: itching (1 source) ALLERGIES NOT ON FILE; Translations: [ALLERGIES NOT ON FILE] Propensity to adverse reactions (disorder) [facility] 2 Repository NEGATED: Highlighted row has been ruled out! (1 source) allergy to substance 07-26-19 [facility] Work Phone: NEGATED: Highlighted row has been ruled out! (1 source) drug allergy 07-26-19 [facility] Work Phone: NEGATED: Highlighted row has been ruled out! (1 source) allergy to substance 07-26-19 [facility] Work Phone: NEGATED: Highlighted row has been ruled out! (1 source) drug allergy 07-26-19 [facility] Work Phone: Medications Current Medications Medication Drug Class(es) Dates Sig (Normalized) Sig (Original) ibuprofen 600 mg oral tablet (11 sources) Nonsteroidal Anti-inflammatory Drug Start: 01-25-2022 take 1 tablet by mouth every eight hours as needed for pain Ibuprofen 600 mg tablet Active 600 mg PO EVERY 8 HOURS NEEDED as needed for pain January 25, 2022 12:00am phenazopyridine hydrochloride 200 mg oral tablet (1 source) Start: 02-04-2022 take 1 tablet by mouth three times daily as needed Phenazopyridine (Pyridium) 200 mg tablet Active 200 MG PO 3 TIMES DAILY NEEDED 09 01February 04, 2022 12:00am levothyroxine sodium 0.05 mg oral tablet (20 sources) l-Thyroxine Start: 08-22-2019 take 1 tablet by mouth once daily Levothyroxine 50 mcg tablet Active 50 ug PO DAILY August 22, 2019 12:00am Start: 11-03-2018 take 1 tablet by jc th once daily Levoxyl 50 MCG Oral Tablet 1 (one) Tablet qd for 0 days Quantity: 30 {Tablet} Refills: 4 Ordered: 03-Nov-2018 Fast DO, Sandeep A Fast DO, Sandeep A Start : 03-Nov-2018 Active Start: 2018 take 1 tablet by jc th once daily Levoxyl 50 MCG Oral Tablet 1 (one) Tablet qd for 0 days Quantity: 30 {Tablet} Refills: 0 Ordered: 21-Apr-2018 Trinh Tsai Start : 21-Apr-2018 Active traZODone hydrochloride 50 mg oral tablet (20 sources) Serotonin Reuptake Inhibitor Start: 08-22-2019 take 1 tablet by mouth at bedtime Trazodone 50 mg tablet Active 50 mg PO AT BEDTIME August 22, 2019 12:00am Start: 08-22-2019 take 1 tablet by mouth at bedt margaret Trazodone Active 50 tab PO AT BEDTIME August 22, 2019 12:00am Start: 03-07-2019 take 1-2 tablets by mouth at bedtime traZODone HCl 50 MG Oral Tablet 1-2 Tablet at bedtime for 30 days Quantity: 60 {Tablet} Refills: 3 Ordered: 07-Mar-2019 Fast DO, Sandeep A Fast DO, Sandeep A Start : 07-Mar-2019 Active Comments: Okay to fill 05/17/18 Start: 11-03-2018 take 1-2 tablets by mouth at bedtime traZODone HCl 50 MG Oral Tablet 1-2 Tablet at bedtime for 30 days Quantity: 60 {Tablet} Refills: 3 Ordered: 03-Nov-2018 Fast DO, Sandeep A Fast DO, Sandeep A Start : 03-Nov-2018 Active Comments: Okay to fill 05/17/18 Start: 05-03-2018 take 1-2 tablets by mouth at bedtime TraZODone HCl 50 MG Oral Tablet 1-2 Tablet at bedtime for 30 days Quantity: 60 {Tablet} Refills: 2 Ordered: 03-May-2018 Fast DO, Sandeep A Fast DO, Sandeep A Start : 03-May-2018 Active Comments: Okay to fill 05/17/18 Start: 02-16-2018 take 1-2 tablets by mouth at bedtime TraZODone HCl 50 MG Oral Tablet 1-2 Tablet at bedtime for 0 days Quantity: 60 {Tablet} Refills: 2 Ordered: 16-Feb-2018 Kinjal AVENDANO, Ivania Barillas Start : 16-Feb-2018 Active Comment on above: Okay to fill 05/17/18 Completed/Discontinued Medications Medication Drug Class(es) Dates Sig (Normalized) Sig (Original) acetaminophen 325 mg / HYDROcodone bitartrate 5 mg oral tablet (12 sources) Opioid Agonist Start: 04-15-2024 End: 05-18-2024 Hydrocodone-Acetami nophen 5-325 mg tablet Discontinued 1 {tbl} PO EVERY 6 HOURS NEEDED as needed for Pain 10 April 15, 2024 May 18, 2024 10:00am Start: 02-27-2018 End: 08-22-2019 Hydrocodone-Acetaminophen 1 TABLET tablet Discontinued 1 {tbl} PO EVERY 4 HOURS NEEDED as needed for Pain 10 February 27, 2018 12:00am August 22, 2019 8:54am Start: 02-27-2018 End: 08-22-2019 take 1 tablet by mouth every four hours as needed Hydrocodone-Acetaminophen Discontinued 1 TABLET PO EVERY 4 HOURS NEEDED 10 February 27, 2018 12:00am August 22, 2019 8:54am acetaminophen 325 mg / oxyCODONE hydrochloride 5 mg oral tablet (20 sources) Opioid Agonist Start: 01-25-2023 End: 05-18-2024 Oxycodone-Acetaminophen (Percocet) 5-325 mg tablet Discontinued 1 {tbl} PO EVERY 6 HOURS as needed for pain 30 10January 25, 2023 May 18, 2024 9:59am Start: 02-04-2022 End: 05-18-2024 Oxycodone-Acetaminophen 5-32 5 mg tablet Discontinued 2 {tbl} PO EVERY 8 HOURS NEEDED as needed for Pain 03 15February 18, 2022 May 18, 2024 9:59am Start: 02-04-2022 take 2 tablets by mo uth every eight hours as needed Oxycodone-Acetaminophen Active 2 TABLET PO EVERY 8 HOURS NEEDED 03 15February 18, 2022 Start: 08-23-2019 End: 08-29-2019 Oxycodone-Acetaminophen 1 TA BLET tablet Discontinued 1 - 2 {tbl} PO EVERY 4 HOURS NEEDED as needed for Pain 10 12August 23, 2019 August 28, 2019 12:00am August 29, 2019 12:08am Start: 08-23-2019 End: 08-29-2019 take 1 tablet by mouth every four hours as needed Oxycodone-Acetaminophen Discontinued 1 - 2 TABLET PO EVERY 4 HOURS NEEDED 10 12August 23, 2019 August 29, 2019 12:08am amoxicillin 875 mg / clavulanate 125 mg oral tablet (20 sources) Penicillin-class Antibacterial Start: 05-23-2017 End: 06-09-2017 take 1 tablet by mouth twice daily Amoxicillin-Pot Clavulanate 875-125 MG Oral Tablet 1 (one) Tablet bid for 0 days Quantity: 20 {Tablet} Refills: 0 Ordered: 09-Jun-2017 Allison Helms LPN Start : 23-May-2017 End : 09-Jun-2017 Inactive ascorbic acid 100 mg oral tablet (10 sources) Vitamin C take 1 mg by mouth once daily Vitamin C 100 MG Oral Tablet qd (100 MG) Active azithromycin 250 mg oral tablet (20 sources) Macrolide Antimicrobial Start: 06-01-2021 End: 07-29-2021 Zithromax 250 MG Oral Tablet 2 (two) Tablet today then 1 qd for 0 days Quantity: 6 {Tablet} Refills: 0 Ordered: 29-Jul-2021 Fast DO, Sandeep A Fast DO, Sandeep A Start : 01-Jun-2021 End : 29-Jul-2021 Inactive busPIRone hydrochloride 7.5 mg oral tablet (20 sources) Start: 11-12-2020 End: 02-16-2023 take 1-2 tablets by mouth once daily at bedtime busPIRone 7.5 mg oral tablet 1-2 Tablet qhs for 0 days Quantity: 60 {Tablet} Refills: 3 Ordered: 16-Feb-2023 Fast DO, Sandeep A Fast DO, Sandeep A Start : 12-Nov-2020 End : 16-Feb-2023 Inactive Start: 04-09-2019 take 1-2 tablets by mouth once daily at bedtime busPIRone HCl 7.5 MG Oral Tablet 1-2 Tablet qhs for 0 days Quantity: 60 {Tablet} Refills: 3 Ordered: 09-Apr-2019 Fast DO, Sandeep A Fast DO, Sandeep A Start : 09-Apr-2019 Active cephalexin 500 mg oral capsule (11 sources) Cephalosporin Antibacterial Start: 02-18-2022 End: 05-18-2024 take 1 capsule by mouth every twelve hours Cephalexin 500 mg capsule Discontinued 500 mg PO EVERY 12 HOURS 6 February 18, 2022 12:00am May 18, 2024 9:59am Start: 02-04-2022 take 500 mg by mouth every twelve hours Cephalexin Active 500 MG PO EVERY 12 HOURS 6 February 04, 2022 12:00am cholecalciferol 0.05 mg oral capsule (20 sources) Vitamin D Start: 04-09-2019 End: 05-09-2019 take 1 capsule by mouth once daily Vitamin D3 2000 UNIT Oral Capsule 1 (one) Capsule daily for 30 days Quantity: 30 {Capsule} Refills: 0 Ordered: 09-Apr-2019 Fast DO, Sandeep A Fast DO, Sandeep A Start : 09-Apr-2019 End : 09-May-2019 Inactive Start: 11-09-2016 End: 12-09-2016 take 2 capsules by mouth once daily Vitamin D3 2000 UNIT Oral Capsule 2 (two) Capsule daily for 30 days Quantity: 60 {Capsule} Refills: 0 Ordered: 09-Nov-2016 Fast DO, Sandeep A Fast DO, Sandeep A Start : 09-Nov-2016 End : 09-Dec-2016 Inactive ciprofloxacin 500 mg oral tablet (20 sources) Quinolone Antimicrobial Start: 01-25-2023 End: 05-18-2024 take 1 tablet by mouth twice daily Ciprofloxacin Hcl (Cipro) 500 mg tablet Discontinued 500 mg PO TWICE A DAY 14 January 25, 2023 12:00am May 18, 2024 9:59am Start: 11-12-2016 End: 11-22-2016 take 1 tablet by mouth twice daily Cipro 500 MG Oral Tablet 1 (one) Tablet bid for 10 days Quantity: 20 {Tablet} Refills: 0 Ordered: 12-Nov-2016 Morenita Benton Start : 12-Nov-2016 End : 22-Nov-2016 Inactive Comments: with prodbiotic Comment on above: with prodbiotic dexamethasone 6 mg oral tablet (20 sources) Corticosteroid Start: End: take 1 tablet by mouth once daily at mealtime Dexamethasone 6 MG Oral Tablet 1 (one) Tablet qd for 0 days Quantity: 10 {Tablet} Refills: 0 Ordered: 29-Jul-2021 Fast DO, Sandeep A Fast DO, Sandeep A Start : 01-Jun-2021 End : 29-Jul-2021 Inactive Comments: francisco with food in am Comment on above: francisco with food in am DULoxetine 60 mg delayed release oral capsule (20 sources) Serotonin and Norepinephrine Reuptake Inhibitor Start: 023 DULoxetine 60 mg oral capsule,delayed release (enteric coated) 1 (one) Capsule DR Part q am with food for 30 days Quantity: 30 {Capsule} Refills: 6 Ordered: 08-Sep-2022 Fast DO, Sandeep A Fast DO, Sandeep A Start : 08-Sep-2022 Active Start: 06-02-2021 DULoxetine HCl 60 MG Oral Capsule Delayed Release Particles 1 (one) Capsule DR Part q am with food for 30 days Quantity: 30 {Capsule} Refills: 6 Ordered: 02-Jun-2021 Fast DO, Sandeep A Fast DO, Sandeep A Start : 02-Jun-2021 Active Start: 10-15-2020 take 5 capsules by m outh once at mealtime DULoxetine HCl 60 MG Oral Capsule Delayed Release Particles 1 (one) Capsule DR Part q am with food for 30 days Quantity: 30 {Capsule} Refills: 6 Ordered: 15-Oct-2020 Fast DO, Sandeep A Fast DO, Sandeep A Start : 15-Oct-2020 Active Start: 12-19-2019 take 8 capsules by m out once at mealtime DULoxetine HCl 60 MG Oral Capsule Delayed Release Particles 1 (one) Capsule DR Part q am with food for 30 days Quantity: 30 {Capsule} Refills: 5 Ordered: 19-Dec-2019 Fast DO, Sandeep A Fast DO, Sandeep A Start : 19-Dec-2019 Active Start: 08-22-2019 take 1 capsule by mo ut once daily Duloxetine 60 mg capsule,delayed release(DR/EC) Active 60 mg PO DAILY August 22, 2019 12:00am Start: 11-03-2018 DULoxetine HCl 60 MG Oral Capsule Delayed Release Particles 1 (one) Capsule DR Part q am with food for 30 days Quantity: 30 {Capsule} Refills: 5 Ordered: 03-Nov-2018 Fast DO, Sandeep A Fast DO, Sandeep A Start : 03-Nov-2018 Active Start: 2018 End: 05-21-2018 take 9 capsules by mouth once at mealtime DULoxetine HCl 60 MG Oral Capsule Delayed Release Particles 1 (one) Capsule DR Part q am with food for 30 days Quantity: 30 {Capsule} Refills: 0 Ordered: 21-Apr-2018 Trinh Tsai Start : 21-Apr-2018 End : 21-May-2018 Inactive Start: 2018 take 1 capsule by mo [facility] once at mealtime DULoxetine HCl 60 MG Oral Capsule Delayed Release Particles 1 (one) Capsule DR Part q am with food for 30 days Quantity: 30 {Capsule} Refills: 0 Ordered: 21-Apr-2018 Trinh Tsai Start : 21-Apr-2018 Active Start: 2018 take 1 capsule by mo [facility] once at mealtime DULoxetine HCl 60 MG Oral Capsule Delayed Release Particles 1 (one) Capsule DR Part q am with food for 30 days Quantity: 30 {Capsule} Refills: 0 Ordered: 21-Apr-2018 Trinh Tsai Start : 21-Apr-2018 Active ferrous sulfate 325 mg delayed release oral tablet (20 sources) Start: 11-09-2016 End: 05-23-2017 take 1 tablet by mouth once daily Ferrous Sulfate 325 (65 Fe) MG Oral Tablet Delayed Release 1 (one) Tablet DR qd for 0 days Quantity: 30 {Tablet} Refills: 3 Ordered: 23-May-2017 Morenita Benton Start : 09-Nov-2016 End : 23-May-2017 Discontinued take 1 tablet by mouth once calista y Ferrous Sulfate 325 (65 Fe) MG Oral Tablet qd (325 (65 Fe) MG) Inactive gabapentin 300 mg oral capsule (20 sources) Anti-epileptic Agent Start: 03-11-2021 End: 02-16-2023 take 1 capsule by mouth three times daily gabapentin 300 mg oral capsule 1 (one) Capsule tid for 30 days Quantity: 90 {Capsule} Refills: 3 Ordered: 16-Feb-2023 Trinh Tsai CMA Start : 11-Mar-2021 End : 16-Feb-2023 Inactive Comments: Disp: Ninety Dx: M25.511 Start: 07-30-2020 take 3 capsules by m outh three times daily Gabapentin 100 MG Oral Capsule 3 (three) Capsule tid for 30 days Quantity: 270 {Capsule} Refills: 3 Ordered: 30-Jul-2020 Fast DO, Sandeep A Fast DO, Sandeep A Start : 30-Jul-2020 Active Start: 06-02-2020 take 1 capsule by mo uth three times daily, then take 2 capsules by mouth three times daily, then take 3 capsules by mouth three times daily Gabapentin 100 MG Oral Capsule 1 (one) Capsule tid for 0 days Quantity: 270 {Capsule} Refills: 0 Ordered: 02-Jun-2020 Fast DO, Sandeep A Fast DO, Sandeep A Start : 02-Jun-2020 Active Comments: 1 tid for 3 days 2 tid for 3 days 3 tid Comment on above: 1 tid for 3 days 2 t id for 3 days 3 tid Mail order. Disp: Ninety Dx: M25 .511 hyoscyamine sulfate 0.125 mg sublingual tablet (20 sources) Start: 07-26-19 End: 09-07-19 take 1 tablet under the tongue three times daily as needed Levsin/SL 0.125 MG Sublingual Tablet Sublingual 1 (one) Tab Sublingual Tab Sublingual tid prn at onset of abd pain for 0 days Quantity: 30 {Tablet} Refills: 2 Ordered: 06-Sep-2016 Morenita Benton Start : 26-Jul-2014 End : 06-Sep-2016 Discontinued ketorolac tromethamine 10 mg oral tablet (16 sources) Nonsteroidal Anti-inflammatory Drug, Cyclooxygenase Inhibitor Start: 01-26-20 End: 05-18-20 take 1 tablet by mouth every six hours as needed for pain Ketorolac 10 mg tablet Discontinued 10 mg PO EVERY 6 HOURS as needed for pain 30 10January 25, 2023 12:26am May 18, 2024 10:00am Start: 01-29-2022 take 10 mg by mouth three times daily Ketorolac Active 10 MG PO THREE TIMES A DAY 9 January 29, 2022 12:00am Start: 02-27-2018 End: 08-22-2019 take 1 tablet by mouth every six hours as needed for pain Ketorolac 10 MG tablet Discontinued 10 mg PO EVERY 6 HOURS as needed for Pain February 27, 2018 2:49am August 22, 2019 8:54am levoFLOXacin 500 mg oral tablet (20 sources) Quinolone Antimicrobial Start: 06-09-2017 End: 06-19-2017 take 1 tablet by mouth once daily Levaquin 500 MG Oral Tablet 1 (one) Tablet PO Daily for 10 days Quantity: 10 {Tablet} Refills: 0 Ordered: 09-Jun-2017 Ramona Gimenez Start : 09-Jun-2017 End : 19-Jun-2017 Inactive meloxicam 15 mg oral tablet (20 sources) Nonsteroidal Anti-inflammatory Drug Start: 06-04-2020 End: 06-04-2020 take 1 tablet by mouth once daily Meloxicam 15 MG Oral Tablet 1 (one) Tablet qd for 0 days Quantity: 30 {Tablet} Refills: 1 Ordered: 04-Jun-2020 Fast DO, Sandeep A Fast DO, Sandeep A Start : 04-Jun-2020 End : 04-Jun-2020 Discontinued Start: 05-26-2020 take 1 tablet by jc once daily Meloxicam 15 MG Oral Tablet 1 (one) Tablet qd for 0 days Quantity: 30 {Tablet} Refills: 1 Ordered: 26-May-2020 Fast DO, Sandeep A Fast DO, Sandeep A Start : 26-May-2020 Active naproxen 500 mg oral tablet (20 sources) Nonsteroidal Anti-inflammatory Drug Start: 04-15-2024 End: 05-18-2024 take 1 tablet by mouth twice daily Naproxen 500 mg tablet Discontinued 500 mg PO TWICE A DAY April 15, 2024 12:00am May 18, 2024 10:00am ALEVE, 220MG (Or al Tablet) prn back pain (220 MG) Active ondansetron 4 mg disintegrating oral tablet (16 sources) Serotonin-3 Receptor Antagonist Start: 01-25-2023 End: 05-18-2024 take 1 tablet by mouth three times daily as needed for nausea and vomiting Ondansetron 4 mg tablet,disintegrating Discontinued 4 mg PO THREE TIMES A DAY as needed for nausea and vomiting January 25, 2023 12:26am May 18, 2024 10:00am Start: 02-04-2022 take 8 mg by mouth e very eight hours as needed Ondansetron Hcl Active 8 MG PO EVERY 8 HOURS NEEDED 30 12February 04, 2022 12:00am Start: 01-25-2022 End: 05-18-2024 take 1 tablet by mouth every eight hours as needed for nausea and vomiting Ondansetron 4 mg tablet,disintegrating Discontinued 4 mg PO Q8H as needed for nausea and vomiting January 25, 2022 12:00am May 18, 2024 10:00am 24 hr oxybutynin chloride 10 mg extended release oral tablet (11 sources) Cholinergic Muscarinic Antagonist Start: 02-04-2022 End: 05-18-2024 take 1 tablet by mouth once daily Oxybutynin Chloride 10 mg tablet extended release 24hr Discontinued 10 mg PO DAILY February 04, 2022 12:00am May 18, 2024 10:00am saccharomyces boulardii 250 mg oral capsule (20 sources) take 1 mg by mouth once daily Probiotic 250 MG Oral Capsule qd (250 MG) Inactive tamsulosin hydrochloride 0.4 mg oral capsule (4 sources) alpha-Adrenergic Matt Start: 01-25-2023 End: 05-18-2024 take 1 capsule by mouth once daily Tamsulosin (Flomax) 0.4 mg capsule Discontinued 0.4 mg PO DAILY January 25, 2023 12:00am May 18, 2024 9:59am vitamin b12 1 mg extended release oral tablet (20 sources) Vitamin B12 take 1 ug by mouth once daily Vitamin B12 1000 MCG Oral Tablet Extended Release qd (1000 MCG) Active Vitamin C 100 MG Oral Tablet (14 sources) take 1 mg by mouth once daily Vitamin C 100 MG Oral Tablet qd (100 MG) Active Zinc (20 sources) take 1 mg by mouth once daily Zinc 25 MG Oral Tablet qd (25 MG) Active Problems Active Problems Problem Classification Problem Date Documented Date Episodic/Chronic Abdominal pain (20 sources) Generalized abdominal pain; Translations: [Abdominal pain, acute, generalized] Resolved: 7 10-19-2017 Episodic Adjustment disorders (20 sources) Adjustment disorder with depressed mood; Translations: [Grief finding] Resolved: 7 10-19-2017 Chronic Administrative/social admission (3 sources) Medical examinations/reports status; Translations: [Well woman exam] 10-19-2017 Episodic Anxiety disorders (20 sources) Anxiety; Translations: [Anxiety] Onset: 5 10-19-2017 Chronic Comment on above: with passing of moth er recently restart buspar chronic stable-ramy nue present regimen ON MED Bacterial infection (20 sources) Streptococcal infectious disease; Translations: [Group C streptococcal infection] 10-19-2017 Episodic Calculus of urinary tract (20 sources) Calcium renal calculus ; Translations: [Calcium nephrolithiasis] 10-19-2017 Episodic Comment on above: will get 24 hour uri ne and see what levels are may add hctz or potassium citrate depending on results- we discussed diet and more watercalcium oxalate calcium oxalate Diabetes mellitus without complication (13 sources) High hemoglobin A1c level; Translations: [Elevated hemoglobin A1c] 10-19-2017 Chronic Comment on above: get lab work on diet and exe rcise Diabetes mellitus without complication (20 sources) High hemoglobin A1c level; Translations: [Elevated hemoglobin A1c] 05-26-2020 Episodic Comment on above: get labs discussed diet and e x she is prediabetic pretty good keep wor saranya on diet and ex Esophageal disorders (11 sources) Gastroesophageal reflux disease; Translations: [Gastro-esophageal reflux disease without esophagitis] 08-23-2019 Chronic Genitourinary congenital anomalies (20 sources) Multiple renal cysts; Translations: [Multiple renal cysts] 04-09-2019 Chronic Genitourinary congenital anomalies (7 sources) Multiple renal cysts; Translations: [Multiple renal cysts] 04-09-2019 Episodic Genitourinary symptoms and ill-defined conditions (20 sources) Urinary incontinence; Translations: [Urinary incontinence] 10-19-2017 Chronic Immunizations and screening for infectious disease (20 sources) Patient encounter status; Translations: [Screening for HPV (human papillomavirus) (Renamed from Encounter for screening for human papillomavirus (HPV))] 06-04-2020 Episodic Malaise and fatigue (20 sources) Fatigue; Translations: [Fatigue] 10-19-2017 Episodic Comment on above: think multifactorial and not sleeping well move duloxetine to n ighttime Menstrual disorders (1 source) Excessive and frequent menstruation with regular cycle; Translations: [Excessive and frequent menstruation with regular cycle] Onset: 5 Chronic Nonspecific chest pain (5 sources) Chest pain; Translations: [Chest pain, unspecified] 10-12-2022 Episodic Nutritional deficiencies (20 sources) Vitamin D deficiency; Translations: [VITAMIN D DEFICIENCY (Renamed from Avitaminosis D)] 10-19-2017 Chronic Comment on above: get lab chronic stable-ramy nue present regimen Other and unspecified benign neoplasm (20 sources) Lipoma of back; Translations: [Lipoma of back] 08-06-2019 Episodic Other ear and sense organ disorders (20 sources) Bilateral hearing loss; Translations: [Hearing loss, bilateral] 04-09-2019 Chronic Comment on above: monitor she not noti ce issue Other gastrointestinal disorders (20 sources) Oropharyngeal dysphagia; Translations: [Oropharyngeal dysphagia] 10-19-2017 Episodic Comment on above: see nesha better Other hematologic conditions (20 sources) Microcytosis; Translations: [Microcytosis] 10-19-2017 Episodic Other inflammatory condition of skin (20 sources) Itching ; Translations: [Itching] 04-09-2019 Episodic Comment on above: no gross rash but ex coriation and shininess- wonder if start of inverse psoriasis - try cortisone otc if not help try prescription - no evidence of rash or psoriasis any where else Other liver diseases (20 sources) Fatty liver; Translations: [Steatosis of liver] 10-19-2017 Chronic Comment on above: continue working on risk factor modification risk factor modifica tion Other liver diseases (16 sources) Steatosis of liver; Translations: [Fatty Liver (571.8)] Chronic Other lower respiratory disease (20 sources) Apnea; Translations: [Apnea] Resolved: 8 10-19-2017 Episodic Comment on above: set up sleep study Other lower respiratory disease (20 sources) Cough; Translations: [Cough] Resolved: 1 10-19-2017 Episodic Comment on above: improved take antihistamine i f not better will do more workup Other lower respiratory disease (1 source) Other nonspecific abnormal finding of lung field; Translations: [Other nonspecific abnormal finding of lung field] Onset: 5 Episodic Other nervous system disorders (20 sources) Ulnar neuropathy; Translations: [Ulnar tunnel syndrome] 06-15-2021 Chronic Other nervous system disorders (20 sources) Paresthesia; Translations: [Paresthesia] 06-15-2021 Episodic Comment on above: think ulnar tunnel s he will try to avoid pressure antiinflammatories - if persists will need to see ortho/emg/ncs we discuss Other non-traumatic joint disorders (20 sources) Shoulder pain; Translations: [Right shoulder pain] 06-04-2020 Episodic Comment on above: improved Other non-traumatic joint disorders (20 sources) Pain in right shoulder; Translations: [Right shoulder pain] 11-17-2021 Episodic Comment on above: improved Other nutritional; endocrine; and metabolic disorders (17 sources) Body mass index 25-29 - overweight; Translations: [BMI 28.0-28.9,adult] 10-19-2017 Chronic Other nutritional; endocrine; and metabolic disorders (20 sources) Body mass index 25-29 - overweight; Translations: [BMI 28.0-28.9,adult] Resolved: 2 06-04-2020 Episodic Comment on above: send monoclonal ab i nfusion order discussed with patient and side effect profile Other nutritional; endocrine; and metabolic disorders (20 sources) Overweight in adulthood with body mass index of 25 or more but less than 30; Translations: [Body mass index (BMI) 28.0-28.9, adult] Resolved: 3 11-17-2021 Episodic Other skin disorders (11 sources) Disorder of subcutaneous tissue; Translations: [Disorder of the skin and subcutaneous tissue, unspecified] 08-23-2019 Episodic Other upper respiratory disease (20 sources) Pain in throat Episodic Other upper respiratory disease (20 sources) Hoarse; Translations: [Hoarseness] Resolved: 8 10-19-2017 Episodic Other upper respiratory infections (20 sources) Chronic sinusitis, unspecified; Translations: [Bacterial sinusitis] Resolved: 8 10-19-2017 Chronic Other upper respiratory infections (20 sources) Sore throat symptom; Translations: [Sore throat] 10-19-2017 Episodic Residual codes; unclassified (7 sources) Increased body mass index; Translations: [BMI 29.0-29.9,adult] 10-19-2017 Episodic Residual codes; unclassified (20 sources) Family history of ischemic heart disease; Translations: [FAMILY HISTORY OF ISCHEMIC HEART DISEASE (Renamed from Fam hx-ischem heart disease)] 10-19-2017 Episodic Residual codes; unclassified (20 sources) Sleep disorder; Translations: [Sleep disorder] 04-09-2019 Episodic Comment on above: at this point doing ok will monitor she not want more meds Residual codes; unclassified (20 sources) Influenza vaccination declined; Translations: [Influenza vaccination declined (Renamed from Refused influenza vaccine)] 04-09-2019 Episodic Residual codes; unclassified (20 sources) Non-smoker; Translations: [Non-smoker] 06-04-2020 Episodic Residual codes; unclassified (11 sources) Past history of procedure; Translations: [Other specified postprocedural states] 02-16-2022 Episodic Comment on above: 01/2022 Spondylosis; intervertebral disc disorders; other back problems (20 sources) Low back pain; Translations: [Low back pain] Resolved: 8 10-19-2017 Episodic Thyroid disorders (20 sources) Thyroid nodule; Translations: [Goiter] Onset: 5 10-19-2017 Chronic Comment on above: screening up to date bx neg chronic stable-ramy nue present regimen continue monitoring ON MED Unclassified (20 sources) Breast neoplasm screening status; Translations: [Elevated C-reactive protein] Onset: 5 Resolved: 7 10-19-2017 Episodic Comment on above: discussed diet and g et blood flow screening Unclassified (20 sources) Insomnia; Translations: [Family history of ischemic heart disease] 10-19-2017 Episodic Unclassified (20 sources) Hoarseness Unclassified (20 sources) BMI 28.0-28.9,adult Unclassified (20 sources) Non-smoker; Translations: [Non-smoker] 10-19-2017 Unclassified (20 sources) Elevated hemoglobin A1c Unclassified (20 sources) Unclassified (20 sources) BMI 29.0-29.9,adult Unclassified (20 sources) Encounter for screening mammogram for breast cancer (Renamed from Encounter for screening mammogram for malignant neoplasm of breast) Unclassified (20 sources) screening Resolved: 5 11-06-2014 Unclassified (20 sources) Abdominal Pain,General (789.07) Unclassified (20 sources) Grief reaction Unclassified (20 sources) Nephrolithiasis (274.11) Unclassified (20 sources) Influenza vaccination declined; Translations: [Influenza vaccination declined (Renamed from Refused influenza vaccine)] 04-09-2019 Unclassified (20 sources) [facility] WELLNESS EXAM 04-09-2019 Unclassified (20 sources) Multiple renal cysts Unclassified (20 sources) Elevated high sensitivity C-reactive protein Unclassified (20 sources) Hearing loss, bilateral Unclassified (20 sources) Right shoulder pain Unclassified (14 sources) BMI 27.0-27.9,adult Unclassified (5 sources) Will's thyroiditis Unclassified (1 source) Low back pain, unspecified; Translations: [Low back pain, unspecified] Onset: 4 Urinary tract infections (20 sources) Urinary tract infectious disease; Translations: [UTI (urinary tract infection)] 10-19-2017 Episodic Viral infection (20 sources) Disease caused by 2019-nCoV; Translations: [COVID] 06-10-2021 Episodic Comment on above: symptoms began May 13, tested pos covid 05-31-2021, got monoclonal 06-03-21 still feeling poorly, could not breathe last night, sending to ER improving she will c ontact if symptoms worsen not resolve Past or Other Problems Problem Classification Problem Date Documented Date Episodic/Chronic Deficiency and other anemia (20 sources) Iron deficiency anemia, unspecified; Translations: [Iron deficiency anemia] Onset: 06-25-2024 10-19-2017 Episodic Comment on above: not tolerating oral iron so see if qualifies for iv she not able to take the iron routinely she will have to increase in food sources she cant take iron w illmonitor high iron foods Headache, including migraine (20 sources) Headache; Translations: [Headache] Onset: 06-13-2012 10-19-2017 Episodic Headache; including migraine (20 sources) Headache; including migraine Other screening for suspected conditions (not mental disorders or infectious disease) (6 sources) Elevated C-reactive protein; Translations: [Elevated high sensitivity C-reactive protein] 04-09-2019 Unclassified (20 sources) Well woman exam Unclassified (20 sources) Screening for HPV (human papillomavirus) (Renamed from Encounter for screening for human papillomavirus (HPV)); Translations: [Patient encounter status] 10-19-2017 Unclassified (20 sources) Sinusitis, bacterial Unclassified (20 sources) [facility] Wellness Physical 10-19-2017 Unclassified (13 sources) Pregnancies (); Translations: [Pregnancies ()] 10-19-2017 Comment on above: 3. Unclassified (13 sources) Deliveries (Parity); Translations: [Deliveries (Parity)] 10-19-2017 Comment on above: 3. Unclassified (20 sources) Group C streptococcal infection Unclassified (20 sources) Patient encounter status; Translations: [Encounter for screening mammogram for breast cancer (Renamed from Encounter for screening mammogram for malignant neoplasm of breast)] Resolved: 09-06-2016 10-19-2017 Unclassified (11 sources) Non-smoker; Translations: [Non-smoker] 10-19-2017 Unclassified (20 sources) Deliveries (Parity); Translations: [Deliveries (Parity)] 06-04-2020 Comment on above: 3. Unclassified (20 sources) Pregnancies (); Translations: [Pregnancies ()] 06-04-2020 Comment on above: 3. Unclassified (12 sources) Ulnar tunnel syndrome Unclassified (5 sources) Encounter for screening mammogram for malignant neoplasm of breast Urinary tract infections (20 sources) Urinary tract infections Viral infection (20 sources) Disease caused by 2019-nCoV Results Test Name Value Interpretation Reference Range Facility Pelvic (Non )on 03-14 Pelvic (Non ) [facility] Imaging Services [address] [place] [address] Pelvic (Non ) MR#: [id number] Acct: [id number] Name: KERWIN STARKS Rep #: [id number] : 1970 F 54 From: Nat Nieto PCP: Dr. Sandeep Guerrero, DO Status: REG CLI Study: Pelvic (Non ) Date of Exam: 04/09/25 Exam# [id number] Ordering Dr: Sandeep Guerrero DO PROCEDURE: PELVIC (NON ) 04/09/2025 REASON FOR EXAM: COMPLETE US OF PELVIS - MENORRHAGIA TECHNIQUE: Procedure Code: USPEL Modality: US Procedure: PELVIC (NON ) COMPARISON: None FINDINGS: Uterus measures 9.6 x 6.2 x 4.4 cm. Fibroids are noted within the uterus measuring 1.1 x 0.9 x 0.5 cm and 1.3 x 1.5 x 1.1 cm. Endometrial thickness measures 6 mm and is hyperechoic. Nabothian cysts are noted within the cervix. Right ovary measures 2.5 x 1.6 x 1.3 cm and left ovary measures 2.4 x 1.9 x 1.7 cm. There is normal bilateral symmetrical flow within bilateral ovaries. No significant free fluid within the cul-de-sac. US/Pelvic (Non ) IMPRESSION: Uterine fibroids. Endometrial thickness measures 6 mm and is hyperechoic. Reading Location: [facility] CC: Dr. Sandeep Guerrero DO Developmental Services Worker: Signed Normal [facility] Thyroidon 04-09-2025 Thyroid [facility] Imaging Services [address] [place] [address] Thyroid MR#: [id number] Acct: [id number] Name: KERWIN STARKS Rep #: [id number] : 1970 F 54 From: Adin acosta MD PCP: Dr. Sandeep Guerrero DO Status: REG CLI Study: Thyroid Date of Exam: 04/09/25 Exam# [id number] Ordering Dr: Sandeep Guerrero DO PROCEDURE: THYROID 04/09/2025 REASON FOR EXAM: THYROID ULTRASOUND - THYROID NODULE TECHNIQUE: Procedure Code: USTHY Modality: US Procedure: THYROID COMPARISON: Prior sonogram dated March 09, 2024. FINDINGS: Right thyroid lobe size: 6.2 cm x 2.1 cm 2.2 cm Left thyroid lobe size: 5.6 cm x 2.1 cm 1.9 cm Isthmus: 0.5 cm Background parenchymal echotexture is heterogeneous Nodules: . Lobe: Right, Location: Midpole, Size: 0.7 cm x 0.8 cm 0.6 cm, Stability: Stable Composition: Solid or almost completely solid (+2) Echogenicity: Hypoechoic (+2) Margin: Smooth (+0) Shape: Wider than tall (+0) Echogenic Foci: None (+0) TI-RADS: 4 . Lobe: Left, Location: Midpole, Size: 1.1 cm x 0.7 cm 0.3 cm, Stability: Stable Composition: Mixed cystic and solid (+1) Echogenicity: Hypoechoic (+2) Margin: Smooth (+0) Shape: Wider than tall (+0) Echogenic Foci: None (+0) Tie rads 3. Stable 8 mm x 6 mm x 5 mm solid/cystic nodule in the superior pole. US/Thyroid IMPRESSION: Stable enlargement of the thyroid gland with heterogeneous echotexture. Stable bilateral thyroid nodules. RECOMMENDATION: Based on most suspicious nodule. Nodule size = largest diameter Only evaluate nodule if =>5 mm. Growth > 20% in 2 dimensions = worsening. Follow up to 4 nodules. Recommend biopsy for no more than 2 nodules. Reading Location: [facility] CC: Dr. Sandeep Guerrero DO Developmental Services Worker: Signed Normal [facility] L/S Spine Min 4 Views11-12 L/S Spine Min 4 Views [facility] Imaging Services [address] [place], [place] [address] L/S Spine Min 4 Views MR#: [id number] Acct: [id number] Name: KERWIN STARKS Rep #: [id number] : 1970 F 54 From: eDan Nieto PCP: Dr. Sandeep Guerrero DO Status: DEP AMB Study: L/S Spine Min 4 Views Date of Exam: 12/04/24 Exam# [id number] Ordering Dr: Sandeep Guerrero DO PROCEDURE: L/S SPINE MIN 4 VIEWS 12/04/2024 REASON FOR EXAM: LOW BACK PAIN, NKI TECHNIQUE: Four view lumbar series including bilateral oblique views COMPARISON: None. RAD/L/S Spine Min 4 Views IMPRESSION: No evidence of spondylolysis or spondylolisthesis. Mild degenerative changes of the lumbar spine are seen, most prominent in the lower lumbar posterior facets. No significant disc space narrowing is noted. Sacroiliac joints appear within the normal range for age. No fracture site is seen. Reading Location: [place] [address] CC: Dr. Sandeep Guerrero DO Developmental Services Worker: Signed Normal [facility] Emergency Department Summary on 04-15-2024 Emergency Department Summary [facility] Medical [facility] Department [address] [place] [id number] Emergency Department Summary 04/15/24 MR#: [id number] Acct: [id number] Name: KERWIN STARKS Rep #: [id number] : 1970 53 From: Ben Moise MD PCP: Dr. Sandeep Guerrero DO Status:REG ER Location: ED HPI History of Present Illness Chief Complaint: Flank Pain Detail of Chief Complaint: Left lower back pain/not flank Informant: patient Onset/Context/Timing Onset: Today Context: Sudden Onset Timing: Continuous Quality: Pain Location: Left lower back/paralumbar Current Severity: Mild Maximum Severity: Moderate Worsened by: Certain movements Relieved by: Nothing Associated Symptoms Associated Symptoms: None Narrative Narrative: Patient is a 53-year-old woman. She has history of GERD, recent CAT scan that revealed bilateral renal calculi, left lower back pain, GERD, hypothyroidism and anxiety. Pain started somewhat abruptly. She denies dysuria, frequency, urgency or hematuria. She initially stated nothing makes it better or worse. She denies fever, chills night sweats. She denies abdominal pain. She is presently on her menstrual cycle. Prior similar symptoms: Yes Recent Illness/Hospitalization: No PFSH PFSH Medical History Renal calculus, right Alcohol use Low iron Fatty liver Non-smoker Hypothyroid Back pain GERD (gastroesophageal reflux disease) Anxiety Home Medications ???Medication ???Instructions ???Recorded ???Last Taken ???Type duloxetine 60 mg capsule,delayed 60 mg PO DAILY anxiety 08/22/19 02/04/22 History release levothyroxine 50 mcg tablet 50 mcg PO DAILY thyroid 08/22/19 02/04/22 History trazodone 50 mg tablet 50 mg PO QHS sleep 08/22/19 Unknown History ibuprofen 600 mg tablet 600 mg PO Q8H PRN PRN pain #20 tabs 01/25/22 Unknown Rx ondansetron 4 mg disintegrating 4 mg PO Q8H PRN nausea and 01/25/22 Unknown Rx tablet vomiting #10 tabs oxybutynin chloride 10 mg 10 mg PO DAILY 30 days #30 tabs 02/04/22 Unknown Rx tablet,extended release 24 hr oxycodone-acetaminophen 5 mg-325 2 tab PO Q8H PRN PRN Pain 7 days 02/04/22 Unknown Rx mg tablet #20 tabs cephalexin 500 mg capsule 500 mg PO Q12 post-operative 3 02/18/22 Unknown Rx days #6 CAPSULES oxycodone-acetaminophen 5 mg-325 2 tab PO Q8H PRN PRN Pain 3 days 02/18/22 Unknown Rx mg tablet #10 tabs ciprofloxacin HCl 500 mg tablet 500 mg PO BID 7 days #14 tabs 01/25/23 Unknown Rx (Cipro) ketorolac 10 mg tablet 10 mg PO Q6H PRN pain 5 days #20 01/25/23 Unknown Rx tabs ondansetron 4 mg disintegrating 4 mg PO TID PRN nausea and 01/25/23 Unknown Rx tablet vomiting #21 tabs oxycodone-acetaminophen 5 mg-325 1 tab PO Q6H PRN pain 5 days #20 01/25/23 Unknown Rx mg tablet (Percocet) tabs tamsulosin 0.4 mg capsule (Flomax) 0.4 mg PO DAILY 14 days #14 caps 01/25/23 Unknown Rx hydrocodone-acetaminophen 5-325mg 1 tab PO Q6H PRN PRN Pain 3 days 04/15/24 Unknown Rx 5mg-325mg #10 TABLETS naproxen 500 mg tablet 500 mg PO BID #14 tabs 04/15/24 Unknown Rx Allergy/AdvReac Type Severity Reaction Status Date / Time No Known Allergies Allergy Verified 04/15/24 21:34 Family History Mother Heart disease Thyroid disorder Breast cancer Aunt Breast cancer Surgical History History of removal of cyst History of lithotripsy Social History (Updated 04/15/24 @ 21:[address] Ben Moise MD) household members: spouse Smoking Status: Never smoker ROS ROS ED Constitutional Constitutional ED: Denies chills or fever(s) Gastrointestinal Gastrointestinal: Denies abdominal pain, nausea or vomiting Genitourinary Genitourinary ED: Denies dysuria, hematuria or urinary frequency Musculoskeletal Musculoskeletal: Reports back pain; Denies arthralgias, myalgias or neck pain Integumentary Denies rash EXAM Physical Exam Const Vital Signs: 04/15/24 21:33 Temperature 96.9 F L Temperature Source Temporal Pulse Rate 65 Respiratory Rate 19 H Blood Pressure 146/83 H Blood Pressure Mean 104 Pulse Ox 100 Oxygen Delivery Method Room Air Positive well nourished and well developed Constitutional Narrative: Patient was observed walking from triage to room. She did not have a limp but had slight discomfort. Vital signs are marked for an elevated blood pressure 146/83. General Appearance ED: well developed and NAD; Negative for pallor HEENT Reports moist mucous membranes HEENT Narrative: Has atraumatic normocephalic. Ears normal. Eyes PERRL and EOMs intact bilaterally General Eye ED: Negative for scleral icterus Neck no lymphadenopathy, supple and no JVD Resp normal respir (more content not included)... Normal [facility] Laboratory - Chemistry and C hemistry - challengeOrdered By: Gael Winkler on 08-29-2023 Ferritin [Mass/Vol] 11 ng/mL 8-252 [facility] No Panel InformationOrdered By: Gael Winkler on 08-29-2023 Endomysial IgA Antibody Negative Negative [facility] Serum or plasma IgA measurem ent (mass/volume)Ordered By: Gael Winkler on 08-29-2023 IgA [Mass/Vol] 434 mg/dL 87-352 [facility] Comment on above: Performed at: [address] [id number] Director: Gael Decker PhD, Phone: [phone] Serum tissue transglutaminas e IgA antibody assay (units/volume)Ordered By: Gael Winkler on 08-29-2023 tTG IgA Qn (S) <2 U/mL 0-3 [facility] Comment on above: Negative 0 - 3 Weak Positive 4 - 10 Positive >10 Tissue Transglutaminase (tTG) has been identified as the endomysial antigen. Studies have demonstr- ated that endomysial IgA antibodies have over 99% specificity for gluten sensitive enteropathy. CT CARDIAC SCORING WO IV CON TRASTon 08-03-2023 CT CARDIAC SCORING WO IV CONTRAST Interpreted By: Edin Meade, STUDY: CT CARDIAC SCORING WO IV CONTRAST; 08/03/2023 2:05 pm INDICATION: Signs/Symptoms:WELLNESS EXAM. COMPARISON: None. ACCESSION NUMBER(S): [id number] ORDERING CLINICIAN: SANDEEP GUERRERO TECHNIQUE: Using prospective ECG gating, limited CT scan of the chest for evaluation of coronary arteries was performed without intravenous contrast. Coronary calcium scoring was performed according to the method of Agatston. FINDINGS: The score and distribution of calcium in the coronary arteries is as follows: LM: 0. LAD: 0.7. LCx: 0. RCA: 0. Total: 0.7. The visualized segments of the lungs are normally expanded. 4 mm lingular nodule image 31. A few nodules along left major fissure up to 5 mm image limb. The visualized mid/lower ascending thoracic aorta measures 3.6 cm in diameter. The heart is borderline enlarged. Trace pericardial effusion is present. No gross evidence of mediastinal or hilar lymphadenopathy is identified. Moderate paraesophageal hiatal hernia. IMPRESSION: 1. Coronary artery calcium score of 0.7*. 2. Subcentimeter lung nodules as described. 3. Moderate paraesophageal hiatal hernia. *Coronary artery calcium scoring may be helpful in predicting the risk for future coronary heart disease events. According to the [place] [employer] Clinical Expert Consensus Task Force, such testing provides important prognostic information in patients with more than one coronary heart disease risk factor. The coronary artery calcium score correlates with the annual risk of a non-fatal myocardial infarction or coronary heart disease . Coronary artery score Annual Risk 0-99 0.4% 100-399 1.3% >400 2.4% These three "breakpoints" correspond to lower, intermediate and high risk states for future coronary events. Such information should be used, along with appropriate clinical judgment, to make decisions regarding the intensity of risk factor management strategies to treat blood lipids and to modify other non-lipid coronary risk factors. Reference: Badger P et al. Circulation. 2007; 115:402-426 MACRO: Incidental Finding: A non-calcified pulmonary nodule/multiple non-calcified pulmonary nodules measuring less than 6 mm, likely benign. (-YCF-) Instructions: No further follow-up is required, however, if the patient has high risk factors for primary lung malignancy, follow-up noncontrast CT scan chest in 12 months may be obtained. (Lele Das et al., Guidelines for management of incidental pulmonary nodules detected on CT images: From the Fleischner Society 2017, Radiology. 2017 Rafy;284 (1):228-243.) [email or web address] Signed by: Edin Meade 08/03/2023 4:17 PM Dictation workstation: [id number] [facility] CT for calcium scoring WO co ntrast and CTA W contrast IV Heart and coronary arterieson 08-03-2023 1. Coronary artery calcium score of 0.7*. 2. Subcentimeter lung nodules as described. 3. Moderate paraesophageal hiatal hernia. *Coronary artery calcium scoring may be helpful in predicting the risk for future coronary heart disease events. According to the [place] [employer] Clinical Expert Consensus Task Force, such testing provides important prognostic information in patients with more than one coronary heart disease risk factor. The coronary artery calcium score correlates with the annual risk of a non-fatal myocardial infarction or coronary heart disease . Coronary artery score Annual Risk 0-99 0.4% 100-399 1.3% >400 2.4% These three "breakpoints" correspond to lower, intermediate and high risk states for future coronary events. Such information should be used, along with appropriate clinical judgment, to make decisions regarding the intensity of risk factor management strategies to treat blood lipids and to modify other non-lipid coronary risk factors. Reference: Badger P et al. Circulation. 2007; 115:402-426 MACRO: Incidental Finding: A non-calcified pulmonary nodule/multiple non-calcified pulmonary nodules measuring less than 6 mm, likely benign. (-YCF-) Instructions: No further follow-up is required, however, if the patient has high risk factors for primary lung malignancy, follow-up noncontrast CT scan chest in 12 months may be obtained. (Lele Das et al., Guidelines for management of incidental pulmonary nodules detected on CT images: From the Fleischner Society 2017, Radiology. 2017 Rafy;284 (1):228-243.) [email or web address] Signed by: Edin Meade 08/03/2023 4:17 PM Dictation workstation: [id number] [facility] Interpreted By: Edin Jones, STUDY: CT CARDIAC SCORING WO IV CONTRAST; 08/03/2023 2:05 pm INDICATION: Signs/Symptoms:WELLNESS EXAM. COMPARISON: None. ACCESSION NUMBER(S): [id number] ORDERING CLINICIAN: SANDEEP GUERRERO TECHNIQUE: Using prospective ECG gating, limited CT scan of the chest for evaluation of coronary arteries was performed without intravenous contrast. Coronary calcium scoring was performed according to the method of Agatston. FINDINGS: The score and distribution of calcium in the coronary arteries is as follows: LM: 0. LAD: 0.7. LCx: 0. RCA: 0. Total: 0.7. The visualized segments of the lungs are normally expanded. 4 mm lingular nodule image 31. A few nodules along left major fissure up to 5 mm image limb. The visualized mid/lower ascending thoracic aorta measures 3.6 cm in diameter. The heart is borderline enlarged. Trace pericardial effusion is present. No gross evidence of mediastinal or hilar lymphadenopathy is identified. Moderate paraesophageal hiatal hernia. [facility] Edin Meade, DO - 08/03/2023 Interpreted By: Edin Meade, STUDY: CT CARDIAC SCORING WO IV CONTRAST; 08/03/2023 2:05 pm INDICATION: Signs/Symptoms:WELLNESS EXAM. COMPARISON: None. ACCESSION NUMBER(S): [id number] ORDERING CLINICIAN: SANDEEP GUERRERO TECHNIQUE: Using prospective ECG gating, limited CT scan of the chest for evaluation of coronary arteries was performed without intravenous contrast. Coronary calcium scoring was performed according to the method of Agatston. FINDINGS: The score and distribution of calcium in the coronary arteries is as follows: LM: 0. LAD: 0.7. LCx: 0. RCA: 0. Total: 0.7. The visualized segments of the lungs are normally expanded. 4 mm lingular nodule image 31. A few nodules along left major fissure up to 5 mm image limb. The visualized mid/lower ascending thoracic aorta measures 3.6 cm in diameter. The heart is borderline enlarged. Trace pericardial effusion is present. No gross evidence of mediastinal or hilar lymphadenopathy is identified. Moderate paraesophageal hiatal hernia. IMPRESSION: 1. Coronary artery calcium score of 0.7*. 2. Subcentimeter lung nodules as described. 3. Moderate paraesophageal hiatal hernia. *Coronary artery calcium scoring may be helpful in predicting the risk for future coronary heart disease events. According to the [place] [employer] Clinical Expert Consensus Task Force, such testing provides important prognostic information in patients with more than one coronary heart disease risk factor. The coronary artery calcium score correlates with the annual risk of a non-fatal myocardial infarction or coronary heart disease . Coronary artery score Annual Risk 0-99 0.4% 100-399 1.3% >400 2.4% These three "breakpoints" correspond to lower, intermediate and high risk states for future coronary events. Such information should be used, along with appropriate clinical judgment, to make decisions regarding the intensity of risk factor management strategies to treat blood lipids and to modify other non-lipid coronary risk factors. Reference: Badger P et al. Circulation. 2007; 115:402-426 MACRO: Incidental Finding: A non-calcified pulmonary nodule/multiple non-calcified pulmonary nodules measuring less than 6 mm, likely benign. (-YCF-) Instructions: No further follow-up is required, however, if the patient has high risk factors for primary lung malignancy, follow-up noncontrast CT scan chest in 12 months may be obtained. (Lele Das et al., Guidelines for management of incidental pulmonary nodules detected on CT images: From the Fleischner Society 2017, Radiology. 2017 Rafy;284 (1):228-243.) FLEISCHNER.ACR.IF.1 Signed by: Edin Meade 08/03/2023 4:17 PM Dictation workstation: [id number] [facility] Work Phone: Radiology Study observation (narrative) [facility] Work Phone: CT for calcium scoring WO co ntrast and CTA W contrast IV Heart and coronary arteriesOrdered By: Edin Meade on 08-03-2023 [facility] Work Phone: CBC, PLATELETS & MANUAL DIFF ([id number])Ordered By: Systems Admin on 01-28-2023 Basophils (Bld) [#/Vol] 0.1 10*3/uL Normal 0.0-0.2 [facility]; [facility] Work Phone: Comment on above: PATIENT WAS FASTINGP ERFORMED BY: CB [facility] Urmlpu5747 [address] RoadD[address] [place] [id number] Basophils/100 WBC (Bld) 1 % Normal [facility]; [facility] Work Phone: Comment on above: PATIENT WAS FASTINGP ERFORMED BY: CB [facility] Czklnr8797 [address] RoadDublin [place] [id number] Eosinophils (Bld) [#/Vol] 0.2 10*3/uL Normal 0.0-0.4 [facility]; [facility] Work Phone: Comment on above: PATIENT WAS FASTINGP ERFORMED BY: CB [facility] Gmhiyt1295 [address] RoadDublin [place] [id number] Eosinophils/100 WBC (Bld) 2 % Normal [facility]; [facility] Work Phone: Comment on above: PATIENT WAS FASTINGP ERFORMED BY: CB [facility] Grwkev3444 [address] RoadD[address] [place] [id number] Erythrocyte distribution width (RBC) [Ratio] 16.6 % Abnormal 11.7-15.4 [facility]; [facility] Work Phone: Comment on above: PATIENT WAS FASTINGP ERFORMED BY: CB [facility] Stishq7820 [address] RoadD[address] [place] [id number] Hematocrit (Bld) [Volume fraction] 37.1 % Normal 34.0-46.6 [facility]; [facility] Work Phone: Comment on above: PATIENT WAS FASTINGP ERFORMED BY: CB [facility] Biuzba7230 [address] RoadDublin [place] [id number] Hemoglobin (Bld) [Mass/Vol] 11.1 g/dL Normal 11.1-15.9 [facility]; [facility] Work Phone: Comment on above: PATIENT WAS FASTINGP ERFORMED BY: [facility] Eklyjr0130 [address] RoadD[address] [place] [id number] Immature granulocytes (Bld) [#/Vol] 0.0 10*3/uL Normal 0.0-0.1 [facility]; [facility] Work Phone: Comment on above: PATIENT WAS FASTINGP ERFORMED BY: [facility] Msrvjo5[address] RoadDublin [place] [id number] Immature granulocytes/100 WBC (Bld) 1 % Normal [facility]; [facility] Work Phone: Comment on above: PATIENT WAS FASTINGP ERFORMED BY: [facility] Mnmdxq6350 [address] Roadblin [place] [id number] Lymphocytes (Bld) [#/Vol] 2.7 10*3/uL Normal 0.7-3.1 [facility]; [facility] Work Phone: Comment on above: PATIENT WAS FASTINGP ERFORMED BY: [facility] Gixwra2336 [address] [place] [id number] Lymphocytes/100 WBC (Bld) 39 % Normal [facility]; [facility] Work Phone: Comment on above: PATIENT WAS FASTINGP ERFORMED BY: [facility] Cbjher8045 [address] [facility] [place] [id number] MCH (RBC) [Entitic mass] 22.4 pg Abnormal 26.6-33.0 [facility]; [facility] Work Phone: Comment on above: PATIENT WAS FASTINGP ERFORMED BY: [facility] Olumyw9880 [address] RoadD[address] [place] [id number] MCHC (RBC) [Mass/Vol] 29.9 g/dL Abnormal 31.5-35.7 [facility] prehensive Internal Medicine; [facility] Work Phone: Comment on above: PATIENT WAS FASTINGP ERFORMED BY: [facility] Xohhfw4212 [address] [place] [id number] MCV (RBC) [Entitic vol] 75 fL Abnormal 79-97 [facility]; [facility] Work Phone: Comment on above: PATIENT WAS FASTINGP ERFORMED BY: PRATEEK Lab[facility] AlcantaraKesgei4[address] [facility] [place] [id number] Monocytes (Bld) [#/Vol] 0.6 10*3/uL Normal 0.1-0.9 [facility]; [facility] Work Phone: Comment on above: PATIENT WAS FASTINGP ERFORMED BY: PRATEEK [facility] Snmcai3386 [address] [facility]in [place] [id number] Monocytes/100 WBC (Bld) 8 % Normal [facility]; [facility] Work Phone: Comment on above: PATIENT WAS FASTINGP ERFORMED BY: PRATEEK [facility] Msxntc2723 [facility] RoadUNC [facility] Johnston [id number] Neutrophils (Bld) [#/Vol] 3.6 10*3/uL Normal 1.4-7.0 [facility]; [facility] Work Phone: Comment on above: PATIENT WAS FASTINGP ERFORMED BY: PRATEEK Labcomichael GirardCuyput95[address] RoadFormerly [facility]in [place] [id number] Neutrophils/100 WBC (Bld) 49 % Normal [facility]; [facility] Work Phone: Comment on above: PATIENT WAS FASTINGP ERFORMED BY: PRATEEK [facility] Dlvrmo8091 [address] [facility] [id number] Platelets (Bld) [#/Vol] 317 10*3/uL Normal 150-450 [facility]; [facility] Work Phone: Comment on above: PATIENT WAS FASTINGP ERFORMED BY: CB [facility] Prpdqm8367 [address] [facility]bl[facility] [place] [id number] RBC (Bld) [#/Vol] 4.95 10*6/uL Normal 3.77-5.28 [facility]; [facility] Work Phone: Comment on above: PATIENT WAS FASTINGP ERFORMED BY: CB [facility] Lsyaps0812 [address] RoadD[address] [place] [id number] WBC (Bld) [#/Vol] 7.1 10*3/uL Normal 3.4-10.8 [facility]; [facility] Work Phone: Comment on above: PATIENT WAS FASTINGP ERFORMED BY: [facility] Ukdktm7230 [address] RoadDublin [place] [id number] METABOLIC PANEL, COMPREHENSI VE ([id number])Ordered By: Systems Admin on 01-28-2023 Albumin [Mass/Vol] 3.8 g/dL Normal 3.8-4.9 [facility]; [facility] Work Phone: Comment on above: PATIENT WAS FASTINGP ERFORMED BY: [facility] Zcvrpn6650 [address] RoadDublin [place] [id number] Albumin/Globulin [Mass ratio] 1.4 {ratio} Normal 1.2-2.2 [facility]; [facility] Work Phone: Comment on above: PATIENT WAS FASTINGP ERFORMED BY: [facility] Pcqquk0238 [address] RoadDublin [place] [id number] ALP [Catalytic activity/Vol] 64 U/L Normal 44-121 [facility]; [facility] Work Phone: Comment on above: PATIENT WAS FASTINGP ERFORMED BY: [facility] Cqxsgn8474 [address] RoadDublin [place] [id number] ALT [Catalytic activity/Vol] 21 U/L Normal 0-32 [facility]; [facility] Work Phone: Comment on above: PATIENT WAS FASTINGP ERFORMED BY: [facility] Mhqkzs0645 [address] RoadDublin [place] [id number] AST [Catalytic activity/Vol] 19 U/L Normal 0-40 [facility]; [facility] Work Phone: Comment on above: PATIENT WAS FASTINGP ERFORMED BY: [facility] Qcnueb5417 [address] RoadDublin [place] [id number] Bilirubin [Mass/Vol] 0.3 mg/dL Normal 0.0-1.2 Comp rehensive [facility]; [facility] Work Phone: Comment on above: PATIENT WAS FASTINGP ERFORMED BY: PRATEEK [facility] Rnvvbs1377 [address] RoadDublin [place] [id number] Calcium [Mass/Vol] 8.9 mg/dL Normal 8.7-10.2 Compre [facility]; [facility] Work Phone: Comment on above: PATIENT WAS FASTINGP ERFORMED BY: CB [facility] Fjyamf4922 [address] RoadDuin [place] [id number] Chloride [Moles/Vol] 102 mmol/L Normal 96-106 Comp rehensive [facility]; [facility] Work Phone: Comment on above: PATIENT WAS FASTINGP ERFORMED BY: PRATEEK [facility] Hwcbvk3105 [address] RoadDuin [place] [id number] CO2 [Moles/Vol] 25 mmol/L Normal 20-29 Comprehen [facility]; [facility] Work Phone: Comment on above: PATIENT WAS FASTINGP ERFORMED BY: PRATEEK [facility] Eakfmm8019 [address] RoadUNC Health Johnston [id number] Creatinine [Mass/Vol] 0.79 mg/dL Normal 0.57-1.00 [facility] prehensive Internal Medicine; [facility] Work Phone: Comment on above: PATIENT WAS FASTINGP ERFORMED BY: PRATEEK [facility] Xylkxp8386 [address] freshbagUNC Health Johnston [id number] GFR/1.73 sq M.predicted among non-blacks MDRD (S/P/Bld) [Vol rate/Area] 91 mL/min/{1.73_m2} Normal Comprehensiv e [facility]; [facility] Work Phone: Comment on above: PATIENT WAS FASTINGP ERFORMED BY: PRATEEK [facility] Iugnaq1341 Henry RoadUNC Health Johnston [id number] Globulin (S) [Mass/Vol] 2.8 g/dL Normal 1.5-4.5 [facility]; [facility] Work Phone: Comment on above: PATIENT WAS FASTINGP ERFORMED BY: PRATEEK [facility] Lsljip0853 [facility] [id number] Glucose [Mass/Vol] 97 mg/dL Normal 70-99 [facility]; [facility] Work Phone: Comment on above: PATIENT WAS FASTINGP ERFORMED BY: [facility] Bfsufb0034 [address] [facility] [id number] Potassium [Moles/Vol] 4.4 mmol/L Normal 3.5-5.2 [facility]; [facility] Work Phone: Comment on above: PATIENT WAS FASTINGP ERFORMED BY: [facility] Eqjttq1790 [address] [facility] [id number] Protein [Mass/Vol] 6.6 g/dL Normal 6.0-8.5 [facility]; [facility] Work Phone: Comment on above: PATIENT WAS FASTINGP ERFORMED BY: [facility] Qlifvr1389 [address] [facility] [id number] Sodium [Moles/Vol] 139 mmol/L Normal 134-144 [facility]; [facility] Work Phone: Comment on above: PATIENT WAS FASTINGP ERFORMED BY: [facility] Cucvvm8379 [address] [facility] [id number] Urea nitrogen [Mass/Vol] 13 mg/dL Normal 6-24 [facility]; [facility] Work Phone: Comment on above: PATIENT WAS FASTINGP ERFORMED BY: [facility] Egtpwq8361 [address] [facility] [id number] Urea nitrogen/Creatinine [Mass ratio] 16 mg/mg Normal 9-23 [facility]; [facility] Work Phone: Comment on above: PATIENT WAS FASTINGP ERFORMED BY: CB [facility] Iuwxuw2506 [address] [facility]in [place] [id number] Culture, urineOrdered By: Adele Bates on 01-25-2023 Bacteria identified Cx Nom (U) Mixed Gram Pos & Gram Neg Org [facility] Absolute lymphocyte countOrd ered By: Ridge Bates on 01-24-2023 Lymphocytes Auto (Unsp spec) [#/Vol] 2.98 10*3/uL 0.83-4.51 [facility] Basophil percentageOrdered B y: Ridge Bates on 01-24-2023 Basophil percentage 0-5 SEEN /hpf 0-5 [facility] Basophils/100 WBC (Bld) 0.6 % 0-1 [facility] Bilirubin [Mass/Vol] 0.40 mg/dL 0.20-1.00 [facility] Comment on above: For patients on eltr ombopag therapy, use of Dimension [place] TBIL is not recommended. Chloride [Moles/Vol] 104 mmol/L 98-107 [facility] Eosinophils/100 WBC (Bld) 2.3 % 0-5 [facility] Glucose [Mass/Vol] 110 mg/dL 74-106 [facility] Comment on above: Fasting Glucose resu lt from 100 to 125 mg/dL suggests IMPAIRED HOMEOSTASIS per A.D.A. criteria. Neutrophils (Bld) [#/Vol] 8.5 10*3/uL 2.0-7.7 [facility] Neutrophils/100 WBC (Bld) 66.4 % 47-70 [facility] Potassium [Moles/Vol] 3.5 mmol/L 3.5-5.1 [facility] Protein [Mass/Vol] 7.8 g/dL 6.4-8.2 [facility] Sodium [Moles/Vol] 138 mmol/L 136-145 [facility] WBC (Bld) [#/Vol] 12.8 10*3/uL 4.4-11.0 [facility] Bilirubin Test strip Ql (U)O rdered By: Ridge Bates on 01-24-2023 Bilirubin Ql (U) Negative Negative [facility] Blood erythrocytes count (nu mber/volume)Ordered By: Ridge Bates on 01-24-2023 RBC (Bld) [#/Vol] 5.15 10*6/uL 4.2-5.4 [facility] Blood hemoglobin measurement (mass/volume)Ordered By: Ridge Bates on 01-24-2023 Hemoglobin (Bld) [Mass/Vol] 11.4 g/dL 12.0-15.0 [facility] Blood lymphocytes/100 leukoc ytesOrdered By: Ridge Bates on 01-24-2023 Lymphocytes/100 WBC (Bld) 23.3 % 19-41 [facility] Blood monocytes/100 leukocyt esOrdered By: Ridge Bates on 01-24-2023 Monocytes/100 WBC (Bld) 6.9 % 0-10 [facility] Blood platelet mean volumeOr dered By: Ridge Bates on 01-24-2023 Platelet mean volume (Bld) [Entitic vol] 10.2 fL 6.2-12.0 [facility] Determination of erythrocyte mean corpuscular volume (MCV)Ordered By: Ridge Bates on 01-24-2023 MCV (RBC) [Entitic vol] 75.9 fL 81-99 [facility] Hematocrit Auto (Bld) [Volum e fraction]Ordered By: Ridge Bates on 01-24-2023 Hematocrit (Bld) [Volume fraction] 39.1 % 37-47 [facility] Ketones Test strip Ql (U)Ord ered By: Ridge Bates on 01-24-2023 Ketones Ql (U) 5 mg/dl Negative [facility] Laboratory - Chemistry and C hemistry - challengeOrdered By: Ridge Bates on 01-24-2023 ALP [Catalytic activity/Vol] 78 U/L 45-117 [facility] ALT [Catalytic activity/Vol] 29 U/L 13-56 [facility] CO2 [Moles/Vol] 29.0 mmol/L 21.0-32.0 [facility] Globulin (S) [Mass/Vol] 4.3 g/dL 2.2-4.2 [facility] Urea nitrogen/Creatinine [Mass ratio] 12.8 mg/mg 10-20 [facility] Laboratory - Hematology and Cell countsOrdered By: Ridge Bates on 01-24-2023 Erythrocyte distribution width (RBC) [Entitic vol] 48.6 fL 35.1-43.9 [facility] Erythrocyte distribution width (RBC) [Ratio] 18.1 % 11.6-14.6 [facility] Immature granulocytes/100 WBC (Bld) 0.500 % 0.0-0.9 [facility] Comment on above: IG% - Immature Granu locytes (promyelocytes, myelocytes and metamyelocytes) > 1% indicates that a LEFT SHIFT is Present. MCH (RBC) [Entitic mass] 22.1 pg 27.0-32.0 [facility] Nucleated RBC/100 WBC (Bld) [Ratio] 0 % 0-5 [facility] MCHC Auto (RBC) [Mass/Vol]Or dered By: Ridge Bates on 01-24-2023 MCHC (RBC) [Mass/Vol] 29.2 g/dL 32-36 [facility] Mucus LM Ql (Urine sed)Order ed By: Ridge Bates on 01-24-2023 Mucus Ql (Urine sed) 0 SEEN /hpf [facility] Nitrite Test strip Ql (U)Ord ered By: Ridge Bates on 01-24-2023 Nitrite Ql (U) Negative Negative [facility] No Panel InformationOrdered By: Ridge Bates on 01-24-2023 Estimated Creatinine Clearance Calc 92.27 ml/min [facility] Estimated GFR (MDRD) Amer 100 mL/min >60 [facility] Comment on above: GFR Calc Estimated GFR (MDRD) Non-Af Amer 83 mL/min >60 [facility] Comment on above: Non- GFR Calc Platelets bldOrdered By: Thanh Bates on 01-24-2023 Platelets (Bld) [#/Vol] 337 10*3/uL 150-450 [facility] Protein Test strip Ql (U)Ord ered By: Ridge Bates on 01-24-2023 Protein Ql (U) 15 mg/dl Negative [facility] Serum or plasma albumin timothy urement (mass/volume)Ordered By: Ridge Bates on 01-24-2023 Albumin [Mass/Vol] 3.5 g/dL 3.2-5.0 [facility] Serum or plasma albumin/glob ulin mass ratioOrdered By: Ridge Bates on 01-24-2023 Albumin/Globulin [Mass ratio] 0.8 {ratio} 0.9-2.4 [facility] Serum or plasma calcium timothy urement (mass/volume)Ordered By: Ridge Bates on 01-24-2023 Calcium [Mass/Vol] 8.8 mg/dL 8.5-10.1 [facility] Serum or plasma creatinine m easurement (mass/volume)Ordered By: Ridge Bates on 01-24-2023 Creatinine [Mass/Vol] 0.78 mg/dL 0.55-1.02 [facility] Comment on above: The validity of the calculated GFR & GFRAA in patients over 70 years has not been determined. Clinical correlation is essential. Serum or plasma urea nitroge n measurement (mass/volume)Ordered By: Ridge Bates on 01-24-2023 Urea nitrogen [Mass/Vol] 10 mg/dL 7-18 [facility] Squamous epithelial cells de tection in urine sediment by light microscopyOrdered By: Ridge Bates on 01-24-2023 Epithelial cells.squamous LM Ql (Urine sed) 0-5 SEEN /hpf 5-10 [facility] Thin prep Papanicolaou smear with manual screeningOrdered By: Ridge Bates on 01-24-2023 Thin prep Papanicolaou smear with manual screening 13 U/L 15-37 [facility] Thin prep Papanicolaou smear with manual screening 5 5-15 [facility] Urine blood detectionOrdered By: Ridge Bates on 01-24-2023 RBC Ql (U) 25 /ul Negative [facility] RBC Ql (U) 0-5 SEEN /hpf 0-5 [facility] Urine clarityOrdered By: Thanh Bates on 01-24-2023 Clarity (U) Clear Clear [facility] Urine color determinationOrd ered By: Ridge Bates on 01-24-2023 Color (U) Yellow Yellow [facility] Urine glucose detectionOrder ed By: Ridge Bates on 01-24-2023 Glucose Ql (U) Normal mg/dl Normal [facility] Urine leukocyte esterase det ection by dipstickOrdered By: Ridge Bates on 01-24-2023 Leukocyte esterase Test strip Ql (U) 100 /ul Negative [facility] Urine pHOrdered By: Ridge mccarty on 01-24-2023 pH (U) 7.0 [pH] 5.0 - 8.0 [facility] Urine sediment bacteria coun t by microscopy (number/high power field)Ordered By: Ridge Bates on 01-24-2023 Bacteria LM.HPF (Urine sed) [#/Area] 1 /[HPF] None Seen [facility] Urine specific gravity measu rementOrdered By: Ridge Bates on 01-24-2023 Specific gravity (U) [Rel density] 1.015 1.002-1.03 0 [facility] Urobilinogen Auto test strip Ql (U)Ordered By: Ridge Bates on 01-24-2023 Urobilinogen Ql (U) 4 mg/dl Normal [facility] Absolute lymphocyte countOrd ered By: ED PROVIDER on 10-12-2022 Lymphocytes Auto (Unsp spec) [#/Vol] 3.45 10*3/uL 0.83-4.51 [facility] Basophil percentageOrdered B y: ED PROVIDER on 10-12-2022 Basophils/100 WBC (Bld) 0.6 % 0-1 [facility] Chloride [Moles/Vol] 104 mmol/L 98-107 [facility] Eosinophils/100 WBC (Bld) 1.4 % 0-5 [facility] Glucose [Mass/Vol] 82 mg/dL 74-106 [facility] Neutrophils (Bld) [#/Vol] 7.8 10*3/uL 2.0-7.7 [facility] Neutrophils/100 WBC (Bld) 62.2 % 47-70 [facility] Potassium [Moles/Vol] 3.6 mmol/L 3.5-5.1 [facility] Sodium [Moles/Vol] 137 mmol/L 136-145 [facility] WBC (Bld) [#/Vol] 12.6 10*3/uL 4.4-11.0 [facility] Blood erythrocytes count (nu mber/volume)Ordered By: ED PROVIDER on 10-12-2022 RBC (Bld) [#/Vol] 4.82 10*6/uL 4.2-5.4 [facility] Blood hemoglobin measurement (mass/volume)Ordered By: ED PROVIDER on 10-12-2022 Hemoglobin (Bld) [Mass/Vol] 11.2 g/dL 12.0-15.0 [facility] Blood lymphocytes/100 leukoc ytesOrdered By: ED PROVIDER on 10-12-2022 Lymphocytes/100 WBC (Bld) 27.4 % 19-41 [facility] Blood monocytes/100 leukocyt esOrdered By: ED PROVIDER on 10-12-2022 Monocytes/100 WBC (Bld) 8.0 % 0-10 [facility] Blood platelet mean volumeOr dered By: ED PROVIDER on 10-12-2022 Platelet mean volume (Bld) [Entitic vol] 10.6 fL 6.2-12.0 [facility] Determination of erythrocyte mean corpuscular volume (MCV)Ordered By: ED PROVIDER on 10-12-2022 MCV (RBC) [Entitic vol] 77.0 fL 81-99 [facility] Hematocrit Auto (Bld) [Volum e fraction]Ordered By: ED PROVIDER on 10-12-2022 Hematocrit (Bld) [Volume fraction] 37.1 % 37-47 [facility] Laboratory - Chemistry and C hemistry - challengeOrdered By: ED PROVIDER on 10-12-2022 CO2 [Moles/Vol] 26.0 mmol/L 21.0-32.0 [facility] Urea nitrogen/Creatinine [Mass ratio] 12.8 mg/mg 10-20 [facility] Laboratory - Hematology and Cell countsOrdered By: ED PROVIDER on 10-12-2022 Erythrocyte distribution width (RBC) [Entitic vol] 50.3 fL 35.1-43.9 [facility] Erythrocyte distribution width (RBC) [Ratio] 18.2 % 11.6-14.6 [facility] Immature granulocytes/100 WBC (Bld) 0.400 % 0.0-0.9 [facility] Comment on above: IG% - Immature Granu locytes (promyelocytes, myelocytes and metamyelocytes) > 1% indicates that a LEFT SHIFT is Present. MCH (RBC) [Entitic mass] 23.2 pg 27.0-32.0 [facility] Nucleated RBC/100 WBC (Bld) [Ratio] 0 % 0-5 [facility] MCHC Auto (RBC) [Mass/Vol]Or dered By: ED PROVIDER on 10-12-2022 MCHC (RBC) [Mass/Vol] 30.2 g/dL 32-36 [facility] No Panel InformationOrdered By: ED PROVIDER on 10-12-2022 Estimated Creatinine Clearance Calc 92.27 ml/min [facility] Estimated GFR (MDRD) Amer 100 mL/min >60 [facility] Comment on above: GFR Calc Estimated GFR (MDRD) Non-Af Amer 82 mL/min >60 [facility] Comment on above: Non- GFR Calc Troponin I High Sensitivity 5 pg/mL 3.0-54.0 [facility] Comment on above: Please Note: New Esthela t Units and Gender Specific Reference Ranges. For more information see Policy Stat Procedure [place] High Sensitivity Troponin (TNIH) and attachments. Platelets bldOrdered By: ED PROVIDER on 10-12-2022 Platelets (Bld) [#/Vol] 338 10*3/uL 150-450 [facility] Serum or plasma calcium timothy urement (mass/volume)Ordered By: ED PROVIDER on 10-12-2022 Calcium [Mass/Vol] 9.3 mg/dL 8.5-10.1 [facility] Serum or plasma creatinine m easurement (mass/volume)Ordered By: ED PROVIDER on 10-12-2022 Creatinine [Mass/Vol] 0.78 mg/dL 0.55-1.02 [facility] Comment on above: The validity of the calculated GFR & GFRAA in patients over 70 years has not been determined. Clinical correlation is essential. Serum or plasma urea nitroge n measurement (mass/volume)Ordered By: ED PROVIDER on 10-12-2022 Urea nitrogen [Mass/Vol] 10 mg/dL 7-18 [facility] Thin prep Papanicolaou smear with manual screeningOrdered By: ED PROVIDER on 10-12-2022 Thin prep Papanicolaou smear with manual screening 7 5-15 [facility] Calcium oxalate dihydrate cr ystals detection in stone by infrared spectroscopyon 02-18-2022 Calcium oxalate dihydrate crystals Infrared spectroscopy Ql (Stone) 20 % [facility] Work Phone: Color of specimen determinat ionon 02-18-2022 Color (Unsp spec) Brown [facility] Work Phone: Laboratory - Chemistry and C hemistry - challengeon 02-18-2022 HCG ( test) Ql (U) Negative [facility] Work Phone: Comment on above: Very dilute urine sp ecimens, as indicated by a low specificgravity, may not contain digital sales representative levels of hCG. If is still suspected, a first morning urinespecimen should be collected 48 hours later and tested. Laboratory - Miscellaneous t estson 02-18-2022 Service comment (Unsp spec) [Interp] See comment [facility] Work Phone: Comment on above: Physician questions regarding Calculi Analysis contact [facility] at: [phone]. Calculi report will follow via computer, mail or change number operator Measurement of weight of sto neon 02-18-2022 Weight (Stone) 25 mg [facility] Work Phone: No Panel Informationon 02-18 Stone Analysis (T) See comment [facility] Work Phone: Comment on above: Percentage (Represen ts the % composition) Stone Calcium Oxalate Monohydrate 80 % [facility] Work Phone: Origin of Stoneon 02-18-2022 Origin Nom (Stone) Right Uterer [facility] Work Phone: Size of stoneon 02-18-2022 Size (Stone) [Entitic vol] 3x3 mm [facility] Work Phone: Comment on above: Multiple pieces rece ived. Dimensions of the largest piece reported. Thin prep Papanicolaou smear with manual screeningon 02-18-2022 Thin prep Papanicolaou smear with manual screening See comment [facility] Work Phone: Comment on above: Photograph will foll ow under a separate cover. Laboratory - Chemistry and C hemistry - challengeon 02-04-2022 HCG ( test) Ql (U) Negative [facility] Work Phone: Comment on above: Very dilute urine sp ecimens, as indicated by a low specificgravity, may not contain digital sales representative levels of hCG. If is still suspected, a first morning urinespecimen should be collected 48 hours later and tested. Absolute lymphocyte counton 01-29-2022 Lymphocytes Auto (Unsp spec) [#/Vol] 2.39 10*3/uL 0.83-4.51 [facility] Work Phone: Basophil percentageon 2021 Basophil percentage 5-10 SEEN /hpf 0-5 [facility] Work Phone: Basophils/100 WBC (Bld) 0.6 % 0-1 [facility] Work Phone: Chloride [Moles/Vol] 107 mmol/L 98-107 [facility] Work Phone: Eosinophils/100 WBC (Bld) 1.6 % 0-5 [facility] Work Phone: Glucose [Mass/Vol] 104 mg/dL 74-106 [facility] Work Phone: Comment on above: Fasting Glucose resu lt from 100 to 125 mg/dL suggests IMPAIRED HOMEOSTASIS per A.D.A. criteria. Neutrophils (Bld) [#/Vol] 3.9 10*3/uL 2.0-7.7 [facility] Work Phone: Neutrophils/100 WBC (Bld) 55.8 % 47-70 [facility] Work Phone: Potassium [Moles/Vol] 3.9 mmol/L 3.5-5.1 [facility] Work Phone: Sodium [Moles/Vol] 139 mmol/L 136-145 [facility] Work Phone: WBC (Bld) [#/Vol] 6.9 10*3/uL 4.4-11.0 [facility] Work Phone: Bilirubin Test strip Ql (U)o n 01-29-2022 Bilirubin Ql (U) Negative Negative [facility] Work Phone: Blood erythrocytes count (nu mber/volume)on 01-29-2022 RBC (Bld) [#/Vol] 4.95 10*6/uL 4.2-5.4 [facility] Work Phone: Blood hemoglobin measurement (mass/volume)on 01-29-2022 Hemoglobin (Bld) [Mass/Vol] 11.0 g/dL 12.0-15.0 [facility] Work Phone: Blood lymphocytes/100 leukoc yteson 01-29-2022 Lymphocytes/100 WBC (Bld) 34.4 % 19-41 [facility] Work Phone: Blood monocytes/100 leukocyt eson 01-29-2022 Monocytes/100 WBC (Bld) 7.2 % 0-10 [facility] Work Phone: Blood platelet mean volumeon 01-29-2022 Platelet mean volume (Bld) [Entitic vol] 10.1 fL 6.2-12.0 [facility] Work Phone: Determination of erythrocyte mean corpuscular volume (MCV)on 01-29-2022 MCV (RBC) [Entitic vol] 73.3 fL 81-99 [facility] Work Phone: Hematocrit Auto (Bld) [Volum e fraction]on 01-29-2022 Hematocrit (Bld) [Volume fraction] 36.3 % 37-47 [facility] Work Phone: Ketones Test strip Ql (U)on 01-29-2022 Ketones Ql (U) Negative Negative [facility] Work Phone: Laboratory - Chemistry and C hemistry - challengeon 01-29-2022 CO2 [Moles/Vol] 29.0 mmol/L 21.0-32.0 [facility] Work Phone: Urea nitrogen/Creatinine [Mass ratio] 15.8 mg/mg 10-20 [facility] Work Phone: Laboratory - Hematology and Cell countson 01-29-2022 Erythrocyte distribution width (RBC) [Entitic vol] 48.2 fL 35.1-43.9 [facility] Work Phone: Erythrocyte distribution width (RBC) [Ratio] 18.4 % 11.6-14.6 [facility] Work Phone: Immature granulocytes/100 WBC (Bld) 0.400 % 0.0-0.9 [facility] Work Phone: Comment on above: IG% - Immature Granu locytes (promyelocytes, myelocytes and metamyelocytes) > 1% indicates that a LEFT SHIFT is Present. MCH (RBC) [Entitic mass] 22.2 pg 27.0-32.0 [facility] Work Phone: Nucleated RBC/100 WBC (Bld) [Ratio] 0 % 0-5 [facility] Work Phone: MCHC Auto (RBC) [Mass/Vol]on 01-29-2022 MCHC (RBC) [Mass/Vol] 30.3 g/dL 32-36 [facility] Work Phone: Mucus LM Ql (Urine sed)on Mucus Ql (Urine sed) 0 SEEN /hpf [facility] Work Phone: Nitrite Test strip Ql (U)on 01-29-2022 Nitrite Ql (U) Negative Negative [facility] Work Phone: No Panel Informationon 01-29 Estimated Creatinine Clearance Calc 95.76 ml/min [facility] Work Phone: Estimated GFR (MDRD) Amer 103 mL/min >60 [facility] Work Phone: Comment on above: GFR Calc Estimated GFR (MDRD) Non-Af Amer 86 mL/min >60 [facility] Work Phone: Comment on above: Non- GFR Calc Reactive Lymphocytes 1+ [facility] Work Phone: Platelets bldon 01-29-2022 Platelets (Bld) [#/Vol] 334 10*3/uL 150-450 [facility] Work Phone: Protein Test strip Ql (U)on 01-29-2022 Protein Ql (U) 15 mg/dl Negative [facility] Work Phone: Serum or plasma calcium timothy urement (mass/volume)on 01-29-2022 Calcium [Mass/Vol] 8.8 mg/dL 8.5-10.1 [facility] Work Phone: Serum or plasma creatinine m easurement (mass/volume)on 01-29-2022 Creatinine [Mass/Vol] 0.76 mg/dL 0.55-1.02 [facility] Work Phone: Comment on above: The validity of the calculated GFR & GFRAA in patients over 70 years has not been determined. Clinical correlation is essential. Serum or plasma urea nitroge n measurement (mass/volume)on 01-29-2022 Urea nitrogen [Mass/Vol] 12 mg/dL 7-18 [facility] Work Phone: Squamous epithelial cells de tection in urine sediment by light microscopyon 01-29-2022 Epithelial cells.squamous LM Ql (Urine sed) 5-10 SEEN /hpf 5-10 [facility] Work Phone: Thin prep Papanicolaou smear with manual screeningon 01-29-2022 Thin prep Papanicolaou smear with manual screening 3 5-15 [facility] Work Phone: Urine blood detectionon 01-11 RBC Ql (U) 10 /ul Negative [facility] Work Phone: RBC Ql (U) 0-5 SEEN /hpf 0-5 [facility] Work Phone: Urine clarityon 01-29-2022 Clarity (U) Clear Clear [facility] Work Phone: Urine color determinationon 01-29-2022 Color (U) Yellow Yellow [facility] Work Phone: Urine glucose detectionon Glucose Ql (U) Normal mg/dl Normal [facility] Work Phone: Urine leukocyte esterase det ection by dipstickon 01-29-2022 Leukocyte esterase Test strip Ql (U) 500 /ul Negative [facility] Work Phone: Urine pHon 01-29-2022 pH (U) 7.0 [pH] 5.0 - 8.0 [facility] Work Phone: Urine sediment bacteria coun t by microscopy (number/high power field)on 01-29-2022 Bacteria LM.HPF (Urine sed) [#/Area] 1 /[HPF] None Seen [facility] Work Phone: Urine specific gravity measu rementon 01-29-2022 Specific gravity (U) [Rel density] 1.010 1.002-1.03 0 [facility] Work Phone: Urobilinogen Auto test strip Ql (U)on 01-29-2022 Urobilinogen Ql (U) Normal mg/dl Normal [facility] Work Phone: Absolute lymphocyte counton 01-25-2022 Lymphocytes Auto (Unsp spec) [#/Vol] 2.84 10*3/uL 0.83-4.51 [facility] Work Phone: Basophil percentageon 2021 Basophils/100 WBC (Bld) 0.5 % 0-1 [facility] Work Phone: Chloride [Moles/Vol] 107 mmol/L 98-107 [facility] Work Phone: Eosinophils/100 WBC (Bld) 2.0 % 0-5 [facility] Work Phone: Glucose [Mass/Vol] 107 mg/dL 74-106 [facility] Work Phone: Comment on above: Fasting Glucose resu lt from 100 to 125 mg/dL suggests IMPAIRED HOMEOSTASIS per A.D.A. criteria. Neutrophils (Bld) [#/Vol] 3.9 10*3/uL 2.0-7.7 [facility] Work Phone: Neutrophils/100 WBC (Bld) 51.8 % 47-70 [facility] Work Phone: Potassium [Moles/Vol] 4.2 mmol/L 3.5-5.1 [facility] Work Phone: Sodium [Moles/Vol] 139 mmol/L 136-145 [facility] Work Phone: WBC (Bld) [#/Vol] 7.6 10*3/uL 4.4-11.0 [facility] Work Phone: Basophil percentage 0-5 SEEN /hpf 0-5 [facility] Work Phone: Bilirubin Test strip Ql (U)o n 01-25-2022 Bilirubin Ql (U) Negative Negative [facility] Work Phone: Blood erythrocytes count (nu mber/volume)on 01-25-2022 RBC (Bld) [#/Vol] 4.89 10*6/uL 4.2-5.4 [facility] Work Phone: Blood hemoglobin measurement (mass/volume)on 01-25-2022 Hemoglobin (Bld) [Mass/Vol] 11.0 g/dL 12.0-15.0 [facility] Work Phone: Blood lymphocytes/100 leukoc yteson 01-25-2022 Lymphocytes/100 WBC (Bld) 37.6 % 19-41 [facility] Work Phone: Blood monocytes/100 leukocyt eson 01-25-2022 Monocytes/100 WBC (Bld) 7.7 % 0-10 [facility] Work Phone: Blood platelet mean volumeon 01-25-2022 Platelet mean volume (Bld) [Entitic vol] 10.2 fL 6.2-12.0 [facility] Work Phone: Determination of erythrocyte mean corpuscular volume (MCV)on 01-25-2022 MCV (RBC) [Entitic vol] 75.7 fL 81-99 [facility] Work Phone: Hematocrit Auto (Bld) [Volum e fraction]on 01-25-2022 Hematocrit (Bld) [Volume fraction] 37.0 % 37-47 [facility] Work Phone: Ketones Test strip Ql (U)on 01-25-2022 Ketones Ql (U) Negative Negative [facility] Work Phone: Laboratory - Chemistry and C hemistry - challengeon 01-25-2022 CO2 [Moles/Vol] 25.0 mmol/L 21.0-32.0 [facility] Work Phone: Urea nitrogen/Creatinine [Mass ratio] 12.7 mg/mg 10-20 [facility] Work Phone: Laboratory - Hematology and Cell countson 01-25-2022 Erythrocyte distribution width (RBC) [Entitic vol] 51.6 fL 35.1-43.9 [facility] Work Phone: Erythrocyte distribution width (RBC) [Ratio] 19.3 % 11.6-14.6 [facility] Work Phone: Immature granulocytes/100 WBC (Bld) 0.400 % 0.0-0.9 [facility] Work Phone: Comment on above: IG% - Immature Granu locytes (promyelocytes, myelocytes and metamyelocytes) > 1% indicates that a LEFT SHIFT is Present. MCH (RBC) [Entitic mass] 22.5 pg 27.0-32.0 [facility] Work Phone: Nucleated RBC/100 WBC (Bld) [Ratio] 0 % 0-5 [facility] Work Phone: MCHC Auto (RBC) [Mass/Vol]on 01-25-2022 MCHC (RBC) [Mass/Vol] 29.7 g/dL 32-36 [facility] Work Phone: Mucus LM Ql (Urine sed)on Mucus Ql (Urine sed) 0 SEEN /hpf [facility] Work Phone: Nitrite Test strip Ql (U)on 01-25-2022 Nitrite Ql (U) Negative Negative [facility] Work Phone: No Panel Informationon 01-25 Estimated Creatinine Clearance Calc 92.13 ml/min [facility] Work Phone: Estimated GFR (MDRD) Amer 99 mL/min >60 [facility] Work Phone: Comment on above: GFR Calc Estimated GFR (MDRD) Non-Af Amer 82 mL/min >60 [facility] Work Phone: Comment on above: Non- GFR Calc Platelets bldon 01-25-2022 Platelets (Bld) [#/Vol] 366 10*3/uL 150-450 [facility] Work Phone: Protein Test strip Ql (U)on 01-25-2022 Protein Ql (U) 30 mg/dl Negative [facility] Work Phone: Serum or plasma calcium timothy urement (mass/volume)on 01-25-2022 Calcium [Mass/Vol] 8.3 mg/dL 8.5-10.1 [facility] Work Phone: Serum or plasma creatinine m easurement (mass/volume)on 01-25-2022 Creatinine [Mass/Vol] 0.79 mg/dL 0.55-1.02 [facility] Work Phone: Comment on above: The validity of the calculated GFR & GFRAA in patients over 70 years has not been determined. Clinical correlation is essential. Serum or plasma urea nitroge n measurement (mass/volume)on 01-25-2022 Urea nitrogen [Mass/Vol] 10 mg/dL 7-18 [facility] Work Phone: Squamous epithelial cells de tection in urine sediment by light microscopyon 01-25-2022 Epithelial cells.squamous LM Ql (Urine sed) 0-5 SEEN /hpf 5-10 [facility] Work Phone: Thin prep Papanicolaou smear with manual screeningon 01-25-2022 Thin prep Papanicolaou smear with manual screening 7 10-25 [facility] Work Phone: Urine blood detectionon 01-11 RBC Ql (U) 250 /ul Negative [facility] Work Phone: RBC Ql (U) 10-25 SEEN /hpf 0-5 [facility] Work Phone: Urine clarityon 01-25-2022 Clarity (U) Clear Clear [facility] Work Phone: Urine color determinationon 01-25-2022 Color (U) Straw Yellow [facility] Work Phone: Urine glucose detectionon Glucose Ql (U) Normal mg/dl Normal [facility] Work Phone: Urine leukocyte esterase det ection by dipstickon 01-25-2022 Leukocyte esterase Test strip Ql (U) 100 /ul Negative [facility] Work Phone: Urine pHon 01-25-2022 pH (U) 6.0 [pH] 5.0 - 8.0 [facility] Work Phone: Urine sediment bacteria coun t by microscopy (number/high power field)on 01-25-2022 Bacteria LM.HPF (Urine sed) [#/Area] 1 /[HPF] None Seen [facility] Work Phone: Urine specific gravity measu rementon 01-25-2022 Specific gravity (U) [Rel density] 1.020 1.002-1.03 0 [facility] Work Phone: Urobilinogen Auto test strip Ql (U)on 01-25-2022 Urobilinogen Ql (U) Normal mg/dl Normal [facility] Work Phone: CNOVon 12-01-2021 CNOV Office Visit (AMHI ) ----- KERWIN STARKS ([id number]) 1970 F Date Time Provider Department 12/01/21 9:00 AM HENRY FUNEZ During your visit today, we recorded the following information about you: Temperature Pulse Blood pressure Weight 97.5 degrees 68/minute 112/78 88.9 kg Height 1.778 m Gabby SethALIX 12/01/2021 9:17 AM Signed REVIEW OF SYSTEMS: General: The patient notes fatigue, denies weight loss, denies weight gain, denies feeling hot, and notes feelings of cold. Eyes: The patient denies glaucoma, denies eye injury/surgery, does not wear glasses or contacts. Ear/Nose/Throat: The patient denies allergies, denies hayfever, denies ear infections, and denies bloody noses. Cardiovascular: The patient denies chest pain, denies heart disease, denies high blood pressure,denies cardiac stent, denies prior heart attack, denies irregular heart beat, denies high cholesterol, denies poor circulation, denies heart failure, other cardiac issues, denies claudication, denies cold feet, denies peripheral arterial stent. Respiratory: The patient denies tuberculosis, denies pneumonia, denies frequent cough, denies pulmonary embolism, denies shortness of breath, and denies coughing up blood. Gastrointestinal: The patient notes difficulty swallowing, denies acid reflux, denies ulcers, denies vomiting, denies jaundice/hepatitis, denies gallbladder problems, denies black or tarry stools, denies hemorrhoids, denies bleeding from rectum, denies diverticulitis, denies constipation, denies diarrhea, denies loss of stool control, and denies hernias. Kidney/Bladder: The patient notes kidney stones, denies urine infections, and denies bloody urine. Skin: The patient denies a history of skin cancer, denies bleeding/changing moles, and denies a history of skin rash. Neurologic: The patient denies a history of epilepsy/convulsions, denies headaches, denies head/spinal injuries, and denies stroke/TIA. Psychiatric: The patient denies psychiatric medications, denies depression, and denies voices, denies substance abuse. Endocrine: The patient denies thyroid disorders, denies diabetes, and denies hormonal problems. Hematologic: The patient denies a history of bruising, denies bleeding, and denies anemia, denies blood clots. Infections: The patient denies a history of measles and mumps, denies rheumatic fever, and denies sexually transmitted diseases. Musculoskeletal: The patient denies back pain/injury, denies back problems, denies sciatica, denies knee/foot trouble, denies arthritis, or denies gout. When was patient's last Mammogram screening? 2020 Last Colonoscopy: unknown ALIX Nunez III, MD 12/01/2021 1:33 PM Signed HISTORY AND PHYSICAL Kerwin Starks 1970 REFERRING PHYSICIAN: Sandeep Guerrero DO CHIEF COMPLAINT: Consult (thyroid nodule) HPI: The patient is a 51 year old female with a complaint of multinodular goiter. Patient had a thyroid ultrasound completed at [facility] on 11/26/2021. In the right lobe there was a 7 mm nodule in the left lobe there was a 1.1 cm nodule. They described it as a solid and cystic nodule. There is no recommendations for fine-needle aspirations on either of these. I have seen the patient in the past and performed fine-needle aspirations on both sides in 2017. 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 The patient is being seen by me today at the request of Dr. Sandeep Guerrero DO for my opinion and advice regarding Multinodular goiter (primary encounter diagnosis). PAST MEDICAL HISTORY Diagnosis Date - Kidney stones PAST SURGICAL HISTORY Procedure Laterality Date - LITHOTRIPSY XTRCORP SHOCK WAVE - PAST SURGICAL HISTORY OF lipoma on back Current Outpatient Medications Medication Sig - gabapentin (NEURONTIN) 300 mg capsule Take 300 mg by mouth twice daily. - levothyroxine (LEVOXYL) 50 mcg tablet Take 1 tablet by mouth daily before breakfast. - DULoxetine 60 mg capsule Take 1 capsule by mouth once daily. - traZODone 50 mg tablet Take 1-2 tablets at bedtime as needed for insomnia - predniSONE 20 mg tablet Prednisone 20 mg- Day 1-2 take 3 tablets in am, day 3-4 take 2 tablets in am, day 5-6 take 1 tablet in am (Patient not taking: Reported on 12/01/2021 ) - SUMAtriptan 100 mg tablet Take at onset of headache, not to exceed 2 days per week (Patient not taking: Reported on 12/01/2021 ) - DULoxetine 30 mg capsule Take one tablet every morning for 2 weeks, and then increase to 60 mg in the morning (Patient not taking: Reported on 12/01/2021 ) No current facility-administered medications for this visit. ALLERGIES: Patient has no known allergies. PERSONAL HISTORY: Social History Tobacco Use - Smoking status: Never Smoker - Smokeless tobacco: Never (more content not included)... Normal [facility] CBC W/AUTO DIFF WBC (02032)O rdered By: Systems Admin on 11-17-2021 Basophils (Bld) [#/Vol] 0.1 10*3/uL Normal 0.0-0.2 [facility] Work Phone: Comment on above: PATIENT WAS FASTINGP ERFORMED BY: PRATEEK [facility] Qflale[address] [place] [id number] Basophils/100 WBC (Bld) 1 % Normal [facility]; [facility] Work Phone: Comment on above: PATIENT WAS FASTINGP ERFORMED BY: [facility] Kjwxod01[address] [place] [id number] Eosinophils (Bld) [#/Vol] 0.2 10*3/uL Normal 0.0-0.4 [facility]; [facility] Work Phone: Comment on above: PATIENT WAS FASTINGP ERFORMED BY: PRATEEK [facility] Slumlp[address] [place] [id number] Eosinophils/100 WBC (Bld) 3 % Normal [facility]; [facility] Work Phone: Comment on above: PATIENT WAS FASTINGP ERFORMED BY: PRATEEK [facility] Wguiun[address] RoadFormerly [facility]in [place] [id number] Erythrocyte distribution width (RBC) [Ratio] 15.8 % Abnormal 11.7-15.4 [facility]; [facility] Work Phone: Comment on above: PATIENT WAS FASTINGP ERFORMED BY: [facility] [id number] [place] [id number] Hematocrit (Bld) [Volume fraction] 36.1 % Normal 34.0-46.6 [facility] Work Phone: Comment on above: PATIENT WAS FASTINGP ERFORMED BY: [facility] Smvrts35[address] [place] [id number] Hemoglobin (Bld) [Mass/Vol] 10.3 g/dL Abnormal 11.1-15.9 [facility]; [facility] Work Phone: Comment on above: PATIENT WAS FASTINGP ERFORMED BY: [facility] Owcots[address] [place] [id number] Immature granulocytes (Bld) [#/Vol] 0.0 10*3/uL Normal 0.0-0.1 [facility] Work Phone: Comment on above: PATIENT WAS FASTINGP ERFORMED BY: PRATEEK [facility] GirardWniaob2020 [facility] [id number] Immature granulocytes/100 WBC (Bld) 0 % Normal [facility]; [facility] Work Phone: Comment on above: PATIENT WAS FASTINGP ERFORMED BY: PRATEEK [facility]6[address] [facility] [id number] Lymphocytes (Bld) [#/Vol] 2.2 10*3/uL Normal 0.7-3.1 [facility]; [facility] Work Phone: Comment on above: PATIENT WAS FASTINGP ERFORMED BY: PRATEEK [facility] [id number] [facility] [id number] Lymphocytes/100 WBC (Bld) 34 % Normal [facility]; [facility] Work Phone: Comment on above: PATIENT WAS FASTINGP ERFORMED BY: PRATEEK [facility]6[address] [facility] [id number] MCH (RBC) [Entitic mass] 21.3 pg Abnormal 26.6-33.0 [facility]; [facility] Work Phone: Comment on above: PATIENT WAS FASTINGP ERFORMED BY: PRATEEK [facility]6[address] [facility] [id number] MCHC (RBC) [Mass/Vol] 28.5 g/dL Abnormal 31.5-35.7 [facility]; [facility] Work Phone: Comment on above: PATIENT WAS FASTINGP ERFORMED BY: PRATEEK [facility] [id number] [facility] [id number] MCV (RBC) [Entitic vol] 75 fL Abnormal 79-97 [facility]; [facility] Work Phone: Comment on above: PATIENT WAS FASTINGP ERFORMED BY: Herminio Aqrpeo0933 [facility] CenterD[facility] [place] [id number] Monocytes (Bld) [#/Vol] 0.5 10*3/uL Normal 0.1-0.9 [facility]; [facility] Work Phone: Comment on above: PATIENT WAS FASTINGP ERFORMED BY: PRATEEK [facility] Arsyjv[address]bl[address] [place] [id number] Monocytes/100 WBC (Bld) 8 % Normal [facility]; [facility] Work Phone: Comment on above: PATIENT WAS FASTINGP ERFORMED BY: PRATEEK [facility] Smpuli[address] [place] [id number] Neutrophils (Bld) [#/Vol] 3.4 10*3/uL Normal 1.4-7.0 [facility]; [facility] Work Phone: Comment on above: PATIENT WAS FASTINGP ERFORMED BY: PRATEEK [facility] GirardVjaxzi[address] [facility]bl[facility] [place] [id number] Neutrophils/100 WBC (Bld) 54 % Normal [facility]; [facility] Work Phone: Comment on above: PATIENT WAS FASTINGP ERFORMED BY: PRATEEK [facility] AlcantaraMlwmzx5[address]bl[address] [place] [id number] Platelets (Bld) [#/Vol] 267 10*3/uL Normal 150-450 [facility]; [facility] Work Phone: Comment on above: PATIENT WAS FASTINGP ERFORMED BY: PRATEEK [facility] Nmyyyk40[address]bl[address] [place] [id number] RBC (Bld) [#/Vol] 4.84 10*6/uL Normal 3.77-5.28 Compr [facility]; [facility] Work Phone: Comment on above: PATIENT WAS FASTINGP ERFORMED BY: PRATEEK [facility] Ojvsek4[address]Dublin [place] [id number] WBC (Bld) [#/Vol] 6.5 10*3/uL Normal 3.4-10.8 [facility]; [facility] Work Phone: Comment on above: PATIENT WAS FASTINGP ERFORMED BY: PRATEEK Lab[facility]ichael GirardLyobvq7018 [facility] [place] [id number] HGB A1C (48158)Ordered By: S autoGraphtem Window Sash Installer on 11-17-2021 HbA1c (Bld) [Mass fraction] 5.7 % Abnormal 4.8-5.6 [facility]; [facility] Work Phone: Comment on above: . Prediabetes: 5.7 - 6.4 Diabetes: >6.4 Glycemic control for adults with diabetes: <7.0 PATIENT WAS FASTINGP ERFORMED BY: PRATEEK Labcomichael GirardPgiali5323 Henry RoadFormerly [facility], [facility] [place] [id number] LIPID PANEL (77488)Ordered B y: Systems Admin on 11-17-2021 Cholesterol [Mass/Vol] 154 mg/dL Normal 100-199 [facility]; [facility] Work Phone: Comment on above: PATIENT WAS FASTINGP ERFORMED BY: PRATEEK Labkimo GirardKrttnr5227 [facility] [place] [id number] Cholesterol in HDL [Mass/Vol] 42 mg/dL Normal [facility]; [facility] Work Phone: Comment on above: PATIENT WAS FASTINGP ERFORMED BY: PRATEEK Labkimo GirardKvshxn8616 [facility] [place] [id number] Triglyceride [Mass/Vol] 70 mg/dL Normal 0-149 [facility]; [facility] Work Phone: Comment on above: PATIENT WAS FASTINGP ERFORMED BY: PRATEEK Labkimo GirardTcizcd9879 [facility] [place] [id number] LIPID PANEL (81551) 14 mg/dL Normal 5-40 Compr ehensive Internal Medicine; [facility] Work Phone: Comment on above: PATIENT WAS FASTINGP ERFORMED BY: PRATEEK Labkimo GirardSocpzi1945 [facility] [place] [id number] LIPID PANEL (13103) 98 mg/dL Normal 0-99 Compr ehensive Internal Medicine; [facility] Work Phone: Comment on above: PATIENT WAS FASTINGP ERFORMED BY: PRATEEK [facility]6370 [facility] [id number] LIPID PANEL (11352) 2.3 {ratio} Normal 0.0-3.2 [facility] Internal Medicine; [facility] Work Phone: Comment on above: LDL/HDL Ratio Men Wo men 1/2 Avg.Risk 1.0 1.5 Avg.Risk 3.6 3.2 2X Avg.Risk 6.2 5.0 3X Avg.Risk 8.0 6.1 PATIENT WAS FASTINGP ERFORMED BY: [facility]6370 [facility] [id number] METABOLIC PANEL, COMPREHENSI VE (32248)Ordered By: Systems Admin on 11-17-2021 Albumin [Mass/Vol] 3.9 g/dL Normal 3.8-4.8 [facility] Internal Medicine; [facility] Work Phone: Comment on above: PATIENT WAS FASTINGP ERFORMED BY: [facility]6370 [facility] [id number] Albumin/Globulin [Mass ratio] 1.4 {ratio} Normal 1.2-2.2 [facility]; [facility] Work Phone: Comment on above: PATIENT WAS FASTINGP ERFORMED BY: [facility]6370 [facility] [id number] ALP [Catalytic activity/Vol] 54 U/L Normal 44-121 [facility]; [facility] Work Phone: Comment on above: PATIENT WAS FASTINGP ERFORMED BY: [facility]6370 [facility] [id number] ALT [Catalytic activity/Vol] 11 U/L Normal 0-32 [facility]; [facility] Work Phone: Comment on above: PATIENT WAS FASTINGP ERFORMED BY: [facility]6370 [facility] [id number] AST [Catalytic activity/Vol] 10 U/L Normal 0-40 [facility]; [facility] Work Phone: Comment on above: PATIENT WAS FASTINGP ERFORMED BY: [facility] Xkibhj0951 Henry RoadDublin [place] [id number] Bilirubin [Mass/Vol] 0.3 mg/dL Normal 0.0-1.2 [facility] rehensive Internal Medicine; [facility] Work Phone: Comment on above: PATIENT WAS FASTINGP ERFORMED BY: Labco Fmdxjt2091 Henry RoadDublin [place] [id number] Calcium [Mass/Vol] 8.5 mg/dL Abnormal 8.7-10.2 [facility] Internal Medicine; [facility] Work Phone: Comment on above: PATIENT WAS FASTINGP ERFORMED BY: [facility] Mnnfpv5039 Henry RoadDublin [place] [id number] Chloride [Moles/Vol] 107 mmol/L Abnormal 96-106 [facility]; [facility] Work Phone: Comment on above: PATIENT WAS FASTINGP ERFORMED BY: [facility] Cilqvi2393 Henry RoadDublin [place] [id number] CO2 [Moles/Vol] 20 mmol/L Normal 20-29 [facility] Internal [facility]; [facility] Work Phone: Comment on above: PATIENT WAS FASTINGP ERFORMED BY: [facility] Gjojlu0157 Henry RoadDublin [place] [id number] Creatinine [Mass/Vol] 0.67 mg/dL Normal 0.57-1.00 [facility]; [facility] Work Phone: Comment on above: PATIENT WAS FASTINGP ERFORMED BY: [facility] Tfyjdy3207 [address] RoadDublin [place] [id number] GFR/1.73 sq M.predicted among non-blacks MDRD (S/P/Bld) [Vol rate/Area] 106 mL/min/{1.73_m2} Normal Comprehensi ve Internal Medicine; [facility] Work Phone: Comment on above: PATIENT WAS FASTINGP ERFORMED BY: [facility] Oyaqnj2761 [address] RoadDublin [place] [id number] Globulin (S) [Mass/Vol] 2.8 g/dL Normal 1.5-4.5 [facility] Internal Medicine; [facility] Work Phone: Comment on above: PATIENT WAS FASTINGP ERFORMED BY: PRATEEK [facility] Rzbxrg1402 [address] RoadDublin [place] [id number] Glucose [Mass/Vol] 105 mg/dL Abnormal 65-99 [facility] Internal Medicine; [facility] Work Phone: Comment on above: PATIENT WAS FASTINGP ERFORMED BY: CB [facility] Zmzzyc8144 Henry RoadDublin [place] [id number] Potassium [Moles/Vol] 4.6 mmol/L Normal 3.5-5.2 [facility]erens[facility]; [facility] Work Phone: Comment on above: PATIENT WAS FASTINGP ERFORMED BY: PRATEEK [facility] Afnmre5130 [address] RoadDublin [place] [id number] Protein [Mass/Vol] 6.7 g/dL Normal 6.0-8.5 [facility] Internal Medicine; [facility] Work Phone: Comment on above: PATIENT WAS FASTINGP ERFORMED BY: PRATEEK [facility] Whkkdn5175 Henry RoadDublin [place] [id number] Sodium [Moles/Vol] 139 mmol/L Normal 134-144 [facility] Internal Medicine; [facility] Work Phone: Comment on above: PATIENT WAS FASTINGP ERFORMED BY: CB [facility] Pastwd6197 Henry RoadDublin [place] [id number] Urea nitrogen [Mass/Vol] 15 mg/dL Normal 6-24 [facility] Internal Medicine; [facility] Work Phone: Comment on above: PATIENT WAS FASTINGP ERFORMED BY: CB [facility] Fqogkc8320 Henry RoadDublin [place] [id number] Urea nitrogen/Creatinine [Mass ratio] 22 mg/mg Normal 9-23 [facility] Internal Medicine; [facility] Work Phone: Comment on above: PATIENT WAS FASTINGP ERFORMED BY: CB [facility] Sdysxb3003 Henry RoadDublin [place] [id number] Vitamin D Hydroxy (85706)Ord ered By: Systems Admin on 11-17-2021 25-hydroxyvitamin D [Mass/Vol] 59.6 ng/mL Normal 30.0-100.0 [facility]; [facility] Work Phone: Comment on above: Vitamin D deficiency has been defined by the [place] of[place]icine and an Endocrine Society practice guideline as alevel of serum 25-OH vitamin D less than 20 ng/mL (1,2).The Endocrine Society went on to further define vitamin Dinsufficiency as a level between 21 and 29 ng/mL (2).1. IOM ([place] of Medicine). 2010. Dietary reference intakes for calcium and D. [place]: The National Academies Press.2. Monica MF, Lisa TORRES, Aye JAMIL, et al. Evaluation, treatment, and prevention of vitamin D deficiency: an Endocrine Society clinical practice guideline. JCEM. 2010; 96(7):1911-30. PATIENT WAS FASTINGP ERFORMED BY: [facility]6370 [facility] [id number] CYMDR-UHYFZZCQETZ-INBWA (821 05)Ordered By: Systems Admin on 07-29-2021 AFP.tumor marker [Mass/Vol] 1.4 ng/mL Normal 0.0-8.3 [facility]; [facility] Work Phone: Comment on above: [employer] El ectrochemiluminescence Immunoassay (ECLIA) . Values obtained with different assay methods or kits cannot be used interchangeably. Results cannot be interpreted as absolute evidence of the presence or absence of malignant disease. . This test is not interpretable in females. . Effective August 17, 2021 AFP, Serum, Tumor Marker reference interval will be changing to: Age Male Female 0 - 7 days 0.0 - 90543.8 0.0 - 00594.8 8 - 30 days 0.0 - 68728.4 0.0 - 65438.4 1 month 0.0 - 1747.8 0.0 - 1600.3 2 months 0.0 - 391.1 0.0 - 550.0 3 months 0.0 - 225.8 0.0 - 339.9 4 months 0.0 - 230.6 0.0 - 230.6 5 months 0.0 - 118.0 0.0 - 234.0 6 months 0.0 - 97.2 0.0 - 97.2 7 - 11 months 0.0 - 60.3 0.0 - 60.3 1 year 0.0 - 21.4 0.0 - 21.4 2 years 0.0 - 9.4 0.0 - 10.1 3 - 4 years 0.0 - 5.5 0.0 - 5.5 5 years 0.0 - 3.6 0.0 - 4.2 6 - 12 years 0.0 - 3.9 0.0 - 3.9 13 - 17 years 0.0 - 4.3 0.0 - 4.3 18 - 30 years 0.0 - 5.7 0.0 - 4.7 31 - 50 years 0.0 - 6.9 0.0 - 6.4 51 - 80 years 0.0 - 8.4 0.0 - 9.2 >80 years 0.0 - 6.4 0.0 - 8.7 PATIENT NOT FASTINGP ERFORMED BY: Interact[employer]io70 [facility] [id number] BY: [employer] [address] [employer] [id number] FREE TRIIDOTHYRONINE (T3) (5 9026)Ordered By: Systems Admin on 07-29-2021 Free T3 [Mass/Vol] 3.1 pg/mL Normal 2.0-4.4 [facility] Internal Medicine; [facility] Work Phone: Comment on above: PATIENT NOT FASTINGP ERFORMED BY: [employer]6370 [facility] [id number] BY: [employer] [id number] HPV automatic (55267)Ordered By: Systems Admin on 07-29-2021 HPV automatic (57596) [facility] [[email or web address]] Normal [facility] prehensive Internal Medicine; [facility] Work Phone: Comment on above: NEGATIVE FOR INTRAEP ITHELIAL LESION OR MALIGNANCY.Satisfactory for evaluation. Endocervical and/or squamous metaplasticcells (endocervical component) are present.Z11.51[facility], Fish Header (ASCP) Source.............C ervix;EndocervixNo. of containers..01 ThinPrep VialPATIENT NOT FASTINGPERFORMED BY: LabcoEpiGaN Wendi Catalan W [id number] BY: =G [facility] Wendi Catalan W [id number] Information: [id number] HPV automatic (30032) . Normal Com prehensive Internal Medicine; [facility] Work Phone: Comment on above: Source.............C ervix;EndocervixNo. of containers..01 ThinPrep VialPATIENT NOT FASTINGPERFORMED BY: [employer] Wendi Catalan W [id number] BY: =G Labalmichael Adame Kingman Alayna W [id number] Information: [id number] HPV automatic (48489) PAPSMR Normal Com prehensive Internal Medicine; [facility] Work Phone: Comment on above: The Pap smear is a s creening test designed to aid in the detection ofpremalignant and malignant conditions of the uterine cervix. It is not adiagnostic procedure and should not be used as the sole means of detectingcervical cancer. Both false-positive and false-negative reports do occur. .This liquid based ThinPrep(R) pap test was screened with theuse of an image guided system. Source.............C ervix;EndocervixNo. of containers..01 ThinPrep VialPATIENT NOT FASTINGPERFORMED BY: LabStarNet Interactive Wendi Catalan W [id number] BY: =G LabcoEpiGaN Wendi Catalan W [id number] Information: [id number] HPV automatic (63661) Negative Normal Com prehensive Internal Medicine; [facility] Work Phone: Comment on above: This nucleic acid am plification test detects fourteen high-riskHPV types (16,18,31,33,35,39,45,51,52,56,58,59,66,68) withoutdifferentiation. Source.............C ervix;EndocervixNo. of containers..01 ThinPrep VialPATIENT NOT FASTINGPERFORMED BY: WB LabZolkC120 [facility] [id number] BY: =G LabOne True MediaLvuhyfrexx277 [facility] [id number] Information: [id number] T4, FREE (THYROXINE) (88016) Ordered By: Systems Admin on 07-29-2021 Free T4 [Mass/Vol] 1.12 ng/dL Normal 0.82-1.77 [facility] Internal Medicine; [facility] Work Phone: Comment on above: PATIENT NOT FASTINGP ERFORMED BY: [employer] Qemini2262 [facility] HospitalNov[facility] [id number] BY: [employer] [address] [id number] TESTOSTERONE FREE (70525)Ord ered By: Systems Admin on 07-29-2021 Testosterone Free [Mass/Vol] 0.5 pg/mL Normal 0.0-4.2 [facility]; [facility] Work Phone: Comment on above: PATIENT NOT FASTINGP ERFORMED BY: [employer] Zfwvyq0583 [facility] HospitalNov[facility] [id number] BY: KelDoc[address] [id number] TESTOSTERONE TOTAL (31390)Or dered By: Systems Admin on 07-29-2021 Testosterone [Mass/Vol] ng/dL Abnormal 4-50 [facility]; [facility] Work Phone: Comment on above: PATIENT NOT FASTINGP ERFORMED BY: Signal Palgrk8352 [facility] [id number] BY: KelDocRobert [facility] Hospital SomersetXosfiiuqti6236 [facility] [id number] TSH (THYROID STIMULATING HOR STACIE) (21186)Ordered By: Systems Admin on 07-29-2021 TSH Qn 3.440 {uIU/mL} Normal 0.450-4.50 0 [facility]; [facility] Work Phone: Comment on above: PATIENT NOT FASTINGP ERFORMED BY: KelDocVirginia [place] 2863670 [facility] [id number] BY: KelDocRobert [facility] Hospital SomersetAnojtazzox4184 [facility] [id number] CBC W/AUTO DIFF WBC (46208)O rdered By: Systems Admin on 07-08-2021 Basophils (Bld) [#/Vol] 0.1 10*3/uL Normal 0.0-0.2 [facility]; [facility] Work Phone: Comment on above: PATIENT WAS FASTINGP ERFORMED BY: KelDocAtlantiCare Regional Medical Center, Mainland CampusQtqiqg3841 [facility] [id number] Basophils/100 WBC (Bld) 1 % Normal [facility]; [facility] Work Phone: Comment on above: PATIENT WAS FASTINGP ERFORMED BY: KelDocAtlantiCare Regional Medical Center, Mainland CampusOvkfof7128 [facility] [id number] Eosinophils (Bld) [#/Vol] 0.2 10*3/uL Normal 0.0-0.4 [facility]; [facility] Work Phone: Comment on above: PATIENT WAS FASTINGP ERFORMED BY: KelDocAtlantiCare Regional Medical Center, Mainland CampusGnccuc5432 [facility] [id number] Eosinophils/100 WBC (Bld) 2 % Normal [facility]; [facility] Work Phone: Comment on above: PATIENT WAS FASTINGP ERFORMED BY: KelDocVirginia [place] 2863670 [facility] [id number] Erythrocyte distribution width (RBC) [Ratio] 16.7 % Abnormal 11.7-15.4 [facility]; [facility] Work Phone: Comment on above: PATIENT WAS FASTINGP ERFORMED BY: [facility] Bksqld0900 [address] RoadDublin [place] [id number] Hematocrit (Bld) [Volume fraction] 36.0 % Normal 34.0-46.6 [facility]; [facility] Work Phone: Comment on above: PATIENT WAS FASTINGP ERFORMED BY: [facility] Ypxbie6440 [address] RoadDublin [place] [id number] Hemoglobin (Bld) [Mass/Vol] 11.0 g/dL Abnormal 11.1-15.9 [facility]; [facility] Work Phone: Comment on above: PATIENT WAS FASTINGP ERFORMED BY: [facility] Aiywfb9260 [address] Roadblin [place] [id number] Immature granulocytes (Bld) [#/Vol] 0.0 10*3/uL Normal 0.0-0.1 [facility]; [facility] Work Phone: Comment on above: PATIENT WAS FASTINGP ERFORMED BY: [facility] Odzoay5846 [address] Roadblin [place] [id number] Immature granulocytes/100 WBC (Bld) 0 % Normal [facility]; [facility] Work Phone: Comment on above: PATIENT WAS FASTINGP ERFORMED BY: [facility] Uyktwt8822 [facility]bl[facility] [place] [id number] Lymphocytes (Bld) [#/Vol] 2.4 10*3/uL Normal 0.7-3.1 [facility]; [facility] Work Phone: Comment on above: PATIENT WAS FASTINGP ERFORMED BY: [facility] Iqyzjz1568 [address] RoadDublin [place] [id number] Lymphocytes/100 WBC (Bld) 36 % Normal [facility]; [facility] Work Phone: Comment on above: PATIENT WAS FASTINGP ERFORMED BY: CB [facility] Bhspib4135 [address] RoadDublin [place] [id number] MCH (RBC) [Entitic mass] 23.8 pg Abnormal 26.6-33.0 [facility]; [facility] Work Phone: Comment on above: PATIENT WAS FASTINGP ERFORMED BY: PRATEEK [facility] Lyqkoq4673 [address] RoadDublin [place] [id number] MCHC (RBC) [Mass/Vol] 30.6 g/dL Abnormal 31.5-35.7 [facility] prehensive Internal Medicine; [facility] Work Phone: Comment on above: PATIENT WAS FASTINGP ERFORMED BY: CB [facility] Dlpfmm7249 [address] RoadDublin [place] [id number] MCV (RBC) [Entitic vol] 78 fL Abnormal 79-97 [facility]; [facility] Work Phone: Comment on above: PATIENT WAS FASTINGP ERFORMED BY: CB [facility] Akajaq5692 [address] Roadblin [place] [id number] Monocytes (Bld) [#/Vol] 0.5 10*3/uL Normal 0.1-0.9 [facility]; [facility] Work Phone: Comment on above: PATIENT WAS FASTINGP ERFORMED BY: PRATEEK [facility] Tnfsba3055 [address] RoadDublin [place] [id number] Monocytes/100 WBC (Bld) 8 % Normal [facility]; [facility] Work Phone: Comment on above: PATIENT WAS FASTINGP ERFORMED BY: CB [facility] Mruhvr7939 Henry [facility] HospitalD[facility] [place] [id number] Neutrophils (Bld) [#/Vol] 3.6 10*3/uL Normal 1.4-7.0 [facility]; [facility] Work Phone: Comment on above: PATIENT WAS FASTINGP ERFORMED BY: CB [facility] Wwhrvx2870 [address] RoadDublin [place] [id number] Neutrophils/100 WBC (Bld) 53 % Normal [facility]; [facility] Work Phone: Comment on above: PATIENT WAS FASTINGP ERFORMED BY: CB [facility] Rsvxts7654 [address] RoadDublin [place] [id number] Platelets (Bld) [#/Vol] 300 10*3/uL Normal 150-450 [facility]; [facility] Work Phone: Comment on above: PATIENT WAS FASTINGP ERFORMED BY: PRATEEK [facility] Xshxlf7657 [address] RoadDublin [place] [id number] RBC (Bld) [#/Vol] 4.63 10*6/uL Normal 3.77-5.28 [facility] Internal Medicine; [facility] Work Phone: Comment on above: PATIENT WAS FASTINGP ERFORMED BY: CB [facility] Zukuyt6004 [address] RoadDublin [place] [id number] WBC (Bld) [#/Vol] 6.7 10*3/uL Normal 3.4-10.8 [facility] Internal Medicine; [facility] Work Phone: Comment on above: PATIENT WAS FASTINGP ERFORMED BY: [facility] Axmstj2757 [address] RoadDublin [place] [id number] METABOLIC PANEL, COMPREHENSI VE (37675)Ordered By: Systems Admin on 07-08-2021 Albumin [Mass/Vol] 4.0 g/dL Normal 3.8-4.8 [facility] Internal Medicine; [facility] Work Phone: Comment on above: PATIENT WAS FASTINGP ERFORMED BY: PRATEEK [facility] Rxppdi1967 [address] RoadDublin [place] [id number] Albumin/Globulin [Mass ratio] 1.2 {ratio} Normal 1.2-2.2 [facility]; [facility] Work Phone: Comment on above: PATIENT WAS FASTINGP ERFORMED BY: [facility] Edeusk0373 [address] RoadDublin [place] [id number] ALP [Catalytic activity/Vol] 74 U/L Normal 44-121 [facility]; [facility] Work Phone: Comment on above: PATIENT WAS FASTINGP ERFORMED BY: [facility] Fadxrb3082 [address] RoadDublin [place] [id number] ALT [Catalytic activity/Vol] 11 U/L Normal 0-32 [facility]; [facility] Work Phone: Comment on above: PATIENT WAS FASTINGP ERFORMED BY: CB [facility] Lmclbx0307 [address] RoadDublin [place] [id number] AST [Catalytic activity/Vol] 13 U/L Normal 0-40 [facility]; [facility] Work Phone: Comment on above: PATIENT WAS FASTINGP ERFORMED BY: CB [facility] Eruqsu8755 [address] RoadDublin [place] [id number] Bilirubin [Mass/Vol] mg/dL Normal 0.0-1.2 Comp rehensive Internal Medicine; [facility] Work Phone: Comment on above: PATIENT WAS FASTINGP ERFORMED BY: CB [facility] Ngtnfs4697 [address] RoadDublin [place] [id number] Calcium [Mass/Vol] 8.9 mg/dL Normal 8.7-10.2 [facility] Internal Medicine; [facility] Work Phone: Comment on above: PATIENT WAS FASTINGP ERFORMED BY: [facility] Rvuqhf5931 [address] RoadDublin [place] [id number] Chloride [Moles/Vol] 102 mmol/L Normal 96-106 Comp rehensive Internal Medicine; [facility] Work Phone: Comment on above: PATIENT WAS FASTINGP ERFORMED BY: CB [facility] Vevayw9391 [address] RoadDublin [place] [id number] CO2 [Moles/Vol] 23 mmol/L Normal 20-29 [facility] Internal [facility]; [facility] Work Phone: Comment on above: PATIENT WAS FASTINGP ERFORMED BY: CB [facility] Imfpsz8594 [address] RoadDublin [place] [id number] Creatinine [Mass/Vol] 0.70 mg/dL Normal 0.57-1.00 [facility] prehensive Internal Medicine; [facility] Work Phone: Comment on above: PATIENT WAS FASTINGP ERFORMED BY: CB [facility] Rffcen9346 [address] RoadDublin [place] [id number] GFR/1.73 sq M.predicted among blacks CKD-EPI (S/P/Bld) [Vol rate/Area] 117 mL/min/1.73 Normal [facility]; [facility] Work Phone: Comment on above: In accordance with recommendations from the NKF-ASN Task force, [facility] is in the process of updating its eGFR calculation to the 2020 CKD-EPI creatinine equation that estimates kidney function without a race variable. PATIENT WAS FASTINGP ERFORMED BY: PRATEEK Alcantara6370 [facility] [id number] GFR/1.73 sq M.predicted among non-blacks CKD-EPI (S/P/Bld) [Vol rate/Area] 101 mL/min/1.73 Normal [facility]; [facility] Work Phone: Comment on above: PATIENT WAS FASTINGP ERFORMED BY: PRATEEK Alcantara6370 [facility] [id number] Globulin (S) [Mass/Vol] 3.3 g/dL Normal 1.5-4.5 [facility] Internal Medicine; [facility] Work Phone: Comment on above: PATIENT WAS FASTINGP ERFORMED BY: PRATEEK Shah Mgjoip6028 [facility]in [place] [id number] Glucose [Mass/Vol] 104 mg/dL Abnormal 65-99 [facility] Internal Medicine; [facility] Work Phone: Comment on above: PATIENT WAS FASTINGP ERFORMED BY: PRATEEK Shah Exrczr2802 [facility] [place] [id number] Potassium [Moles/Vol] 4.4 mmol/L Normal 3.5-5.2 [facility] prehensive Internal Medicine; [facility] Work Phone: Comment on above: PATIENT WAS FASTINGP ERFORMED BY: Pablo Bdvhxc6486 [facility] [place] [id number] Protein [Mass/Vol] 7.3 g/dL Normal 6.0-8.5 [facility] Internal Medicine; [facility] Work Phone: Comment on above: PATIENT WAS FASTINGP ERFORMED BY: Pablo Ittzmm0446 [facility] [place] [id number] Sodium [Moles/Vol] 139 mmol/L Normal 134-144 [facility] Internal Medicine; [facility] Work Phone: Comment on above: PATIENT WAS FASTINGP ERFORMED BY: KelDoc Ibyfnf2355 [facility] [id number] Urea nitrogen [Mass/Vol] 15 mg/dL Normal 6-24 [facility]; [facility] Work Phone: Comment on above: PATIENT WAS FASTINGP ERFORMED BY: KelDoc Xuangf3855 [facility] freshbagUNC [facility] Johnston [id number] Urea nitrogen/Creatinine [Mass ratio] 21 mg/mg Normal 9-23 [facility]; [facility] Work Phone: Comment on above: PATIENT WAS FASTINGP ERFORMED BY: Appside6370 [facility] freshbagUNC Health Johnston [id number] INHOUSE COVID 19 (ONLY) RAPI D (03237)Ordered By: Trinh Tsai on 06-01-2021 SARS-CoV-2 (COVID-19) RNA MARCELL+probe Ql (Unsp spec) Positive Normal [facility]; [facility] Work Phone: [id number] ([id number] 05)Ordered By: Systems Admin on 11-12-2020 AFP.tumor marker [Mass/Vol] 1.8 ng/mL Normal 0.0-8.3 [facility]; [facility] Work Phone: Comment on above: [facility] El ectrochemiluminescence Immunoassay (ECLIA) .Values obtained with different assay methods or kits cannot beused interchangeably. Results cannot be interpreted as absoluteevidence of the presence or absence of malignant disease. .This test is not interpretable in females. PATIENT WAS FASTINGP ERFORMED BY: DealBird6370 Guru TechnologiesUNC Health Johnston [id number] CBC W/AUTO DIFF WBC (14742)O rdered By: Systems Admin on 11-12-2020 Basophils (Bld) [#/Vol] 0.1 10*3/uL Normal 0.0-0.2 [facility]; [facility] Work Phone: Comment on above: PATIENT WAS FASTINGP ERFORMED BY: [facility] Ydwwzu8858 Henry RoadDublin [place] [id number] Basophils/100 WBC (Bld) 1 % Normal [facility]; [facility] Work Phone: Comment on above: PATIENT WAS FASTINGP ERFORMED BY: PRATEEK [facility] Qmnmax8783 [address] Roadblin [place] [id number] Eosinophils (Bld) [#/Vol] 0.1 10*3/uL Normal 0.0-0.4 [facility]; [facility] Work Phone: Comment on above: PATIENT WAS FASTINGP ERFORMED BY: [facility] Sydyta6070 [address] Roadblin [place] [id number] Eosinophils/100 WBC (Bld) 2 % Normal [facility]; [facility] Work Phone: Comment on above: PATIENT WAS FASTINGP ERFORMED BY: [facility] Lpygzw3494 [facility] [id number] Erythrocyte distribution width (RBC) [Ratio] 16.3 % Abnormal 11.7-15.4 [facility]; [facility] Work Phone: Comment on above: PATIENT WAS FASTINGP ERFORMED BY: [facility] Mcmcbw8463 [facility] [id number] Hematocrit (Bld) [Volume fraction] 36.4 % Normal 34.0-46.6 [facility]; [facility] Work Phone: Comment on above: PATIENT WAS FASTINGP ERFORMED BY: [facility] Tivuug0426 [facility] [place] [id number] Hemoglobin (Bld) [Mass/Vol] 11.0 g/dL Abnormal 11.1-15.9 [facility]; [facility] Work Phone: Comment on above: PATIENT WAS FASTINGP ERFORMED BY: [facility] Lwujfe0180 [address] RoadDublin [place] [id number] Immature granulocytes (Bld) [#/Vol] 0.0 10*3/uL Normal 0.0-0.1 [facility]; [facility] Work Phone: Comment on above: PATIENT WAS FASTINGP ERFORMED BY: LabCoAtlantiCare Regional Medical Center, Main[facility] CampusWcetqz0162 [facility] [place] [id number] Immature granulocytes/100 WBC (Bld) 0 % Normal [facility]; [facility] Work Phone: Comment on above: PATIENT WAS FASTINGP ERFORMED BY: [facility]6370 [facility] [place] [id number] Lymphocytes (Bld) [#/Vol] 2.5 10*3/uL Normal 0.7-3.1 [facility]; [facility] Work Phone: Comment on above: PATIENT WAS FASTINGP ERFORMED BY: LabAsc[facility] Hospital6370 [facility] [id number] Lymphocytes/100 WBC (Bld) 40 % Normal [facility]; [facility] Work Phone: Comment on above: PATIENT WAS FASTINGP ERFORMED BY: LabAsc[facility] Hospital6370 [facility] [id number] MCH (RBC) [Entitic mass] 22.8 pg Abnormal 26.6-33.0 [facility]; [facility] Work Phone: Comment on above: PATIENT WAS FASTINGP ERFORMED BY: LabAsc[facility] Hospital6370 [facility] [id number] MCHC (RBC) [Mass/Vol] 30.2 g/dL Abnormal 31.5-35.7 [facility] prehensive Internal Medicine; [facility] Work Phone: Comment on above: PATIENT WAS FASTINGP ERFORMED BY: [facility] Swulrc0052 [facility] [place] [id number] MCV (RBC) [Entitic vol] 76 fL Abnormal 79-97 [facility]; [facility] Work Phone: Comment on above: PATIENT WAS FASTINGP ERFORMED BY: [facility] Gutgxm8839 [facility] [place] [id number] Monocytes (Bld) [#/Vol] 0.4 10*3/uL Normal 0.1-0.9 [facility]; [facility] Work Phone: Comment on above: PATIENT WAS FASTINGP ERFORMED BY: CB [facility] Yegvym4268 [address] RoadDublin [place] [id number] Monocytes/100 WBC (Bld) 7 % Normal [facility]; [facility] Work Phone: Comment on above: PATIENT WAS FASTINGP ERFORMED BY: CB [facility] Mrhwxo5613 [address] RoadDublin [place] [id number] Neutrophils (Bld) [#/Vol] 3.1 10*3/uL Normal 1.4-7.0 [facility]; [facility] Work Phone: Comment on above: PATIENT WAS FASTINGP ERFORMED BY: CB [facility] Jnedyf3809 [address] RoadDublin [place] [id number] Neutrophils/100 WBC (Bld) 50 % Normal [facility]; [facility] Work Phone: Comment on above: PATIENT WAS FASTINGP ERFORMED BY: CB [facility] Wlssjb0504 [address] RoadDublin [place] [id number] Platelets (Bld) [#/Vol] 381 10*3/uL Normal 150-450 [facility]; [facility] Work Phone: Comment on above: PATIENT WAS FASTINGP ERFORMED BY: CB [facility] Mnvevp7720 [address] RoadDublin [place] [id number] RBC (Bld) [#/Vol] 4.82 10*6/uL Normal 3.77-5.28 Compr ehensive Internal Medicine; [facility] Work Phone: Comment on above: PATIENT WAS FASTINGP ERFORMED BY: CB [facility] Vqzvpd9621 [address] RoadDublin [place] [id number] WBC (Bld) [#/Vol] 6.1 10*3/uL Normal 3.4-10.8 Compre hensive Internal Medicine; [facility] Work Phone: Comment on above: PATIENT WAS FASTINGP ERFORMED BY: CB [facility] Ehhbxj0628 [address] RoadDublin [place] [id number] FERRITIN ([id number])Ordered By: Systems Admin on 11-12-2020 Ferritin [Mass/Vol] 9 ng/mL Abnormal 15-150 Compr [facility] Internal Medicine; [facility] Work Phone: Comment on above: PATIENT WAS FASTINGP ERFORMED BY: PRATEEK LabKimo GirardXsdrhx2083 Henry RoadDublin [place] [id number] HGB A1C (88031)Ordered By: S ystem Window Sash Installer on 11-12-2020 HbA1c (Bld) [Mass fraction] 5.8 % Abnormal 4.8-5.6 [facility]; [facility] Work Phone: Comment on above: . Prediabetes: 5.7 - 6.4 Diabetes: >6.4 Glycemic control for adults with diabetes: <7.0 PATIENT WAS FASTINGP ERFORMED BY: PRATEEK LabComichael GirardCxuuhi8873 Henry RoadDublin [place] [id number] IRON BINDING CAPACITY (TIBC) ([id number])Ordered By: Systems Admin on 11-12-2020 Iron [Mass/Vol] 26 ug/dL Abnormal 27-159 [facility] Internal Medicine; [facility] Work Phone: Comment on above: PATIENT WAS FASTINGP ERFORMED BY: PRATEEK LabComichael Xxqxgw0293 [address] RoadDublin [place] [id number] Iron binding capacity [Mass/Vol] 472 ug/dL Abnormal 250-450 [facility]; [facility] Work Phone: Comment on above: PATIENT WAS FASTINGP ERFORMED BY: PRATEEK [facility] Atfoxl6238 [address] RoadDublin [place] [id number] Iron binding capacity.unsaturated [Mass/Vol] 446 ug/dL Abnormal 131-425 [facility]; [facility] Work Phone: Comment on above: PATIENT WAS FASTINGP ERFORMED BY: PRATEEK [facility] Qsznoh0435 [address] RoadDublin [place] [id number] Iron saturation [Mass fraction] 6 % Abnormal 15-55 [facility]; [facility] Work Phone: Comment on above: PATIENT WAS FASTINGP ERFORMED BY: PRATEEK [facility] Tjwjme1676 [address] RoadDublin [place] [id number] LIPID PANEL (35545)Ordered B y: Systems Admin on 11-12-2020 Cholesterol [Mass/Vol] 159 mg/dL Normal 100-199 [facility]; [facility] Work Phone: Comment on above: PATIENT WAS FASTINGP ERFORMED BY: PRATEEK LabComichael Skppjc0225 [address] RoadDublin [place] [id number] Cholesterol in HDL [Mass/Vol] 41 mg/dL Normal [facility]; [facility] Work Phone: Comment on above: PATIENT WAS FASTINGP ERFORMED BY: PRATEEK [facility] Xormmq5390 [address] RoadDublin [place] [id number] Triglyceride [Mass/Vol] 65 mg/dL Normal 0-149 [facility]; [facility] Work Phone: Comment on above: PATIENT WAS FASTINGP ERFORMED BY: PRATEEK LabComichael GirardAkpibi4125 [address] RoadDublin [place] [id number] LIPID PANEL (46370) 13 mg/dL Normal 5-40 Compr ensive Internal Medicine; [facility] Work Phone: Comment on above: PATIENT WAS FASTINGP ERFORMED BY: PRATEEK [facility] Syvbsy7354 [address] RoadDublin [place] [id number] LIPID PANEL (42223) 105 mg/dL Abnormal 0-99 Compr ensive Internal Medicine; [facility] Work Phone: Comment on above: PATIENT WAS FASTINGP ERFORMED BY: PRATEEK [facility] Prfquf8756 [address] RoadDublin [place] [id number] LIPID PANEL (21917) 2.6 {ratio} Normal 0.0-3.2 [facility] daytonensive Internal [facility]; [facility] Work Phone: Comment on above: LDL/HDL Ratio Men Wo men 1/2 Avg.Risk 1.0 1.5 Avg.Risk 3.6 3.2 2X Avg.Risk 6.2 5.0 3X Avg.Risk 8.0 6.1 PATIENT WAS FASTINGP ERFORMED BY: PRATEEK [facility] Kpazpt2733 [address] RoadDublin [place] [id number] METABOLIC PANEL, COMPREHENSI VE (48255)Ordered By: Systems Admin on 11-12-2020 Albumin [Mass/Vol] 4.2 g/dL Normal 3.8-4.8 [facility] Internal Medicine; [facility] Work Phone: Comment on above: PATIENT WAS FASTINGP ERFORMED BY: CB [facility] Fsatsv5155 [address] RoadDublin [place] [id number] Albumin/Globulin [Mass ratio] 1.4 {ratio} Normal 1.2-2.2 [facility]; [facility] Work Phone: Comment on above: PATIENT WAS FASTINGP ERFORMED BY: CB [facility] Gqkkaw4217 [address] RoadDublin [place] [id number] ALP [Catalytic activity/Vol] 76 U/L Normal 48-121 [facility]; [facility] Work Phone: Comment on above: PATIENT WAS FASTINGP ERFORMED BY: CB [facility] Rhcacu6531 [address] RoadDublin [place] [id number] ALT [Catalytic activity/Vol] 16 U/L Normal 0-32 [facility]; [facility] Work Phone: Comment on above: PATIENT WAS FASTINGP ERFORMED BY: CB [facility] Fvcrnb2895 [address] RoadD[address] [place] [id number] AST [Catalytic activity/Vol] 16 U/L Normal 0-40 [facility]; [facility] Work Phone: Comment on above: PATIENT WAS FASTINGP ERFORMED BY: CB [facility] Skpntj4382 [address] RoadDublin [place] [id number] Bilirubin [Mass/Vol] 0.3 mg/dL Normal 0.0-1.2 [facility] Internal Medicine; [facility] Work Phone: Comment on above: PATIENT WAS FASTINGP ERFORMED BY: CB [facility] Dbtwtu7157 [address] RoadDublin [place] [id number] Calcium [Mass/Vol] 9.0 mg/dL Normal 8.7-10.2 [facility] Internal Medicine; [facility] Work Phone: Comment on above: PATIENT WAS FASTINGP ERFORMED BY: CB [facility] Ybpbwi9988 [facility] [id number] Chloride [Moles/Vol] 104 mmol/L Normal 96-106 Comp rehensive Internal Medicine; [facility] Work Phone: Comment on above: PATIENT WAS FASTINGP ERFORMED BY: [facility]6370 [facility] [id number] CO2 [Moles/Vol] 23 mmol/L Normal 20-29 [facility] Internal Medicine; [facility] Work Phone: Comment on above: PATIENT WAS FASTINGP ERFORMED BY: [facility]6370 [facility] [id number] Creatinine [Mass/Vol] 0.78 mg/dL Normal 0.57-1.00 [facility] prehensive Internal Medicine; [facility] Work Phone: Comment on above: PATIENT WAS FASTINGP ERFORMED BY: [facility]6370 [facility] [id number] GFR/1.73 sq M.predicted among blacks CKD-EPI (S/P/Bld) [Vol rate/Area] 103 mL/min/1.73 Normal [facility]; [facility] Work Phone: Comment on above: [facility] currently reports eGFR in compliance with the current recommendations of the National Kidney Foundation. [facility] will update reporting as new guidelines are published from the NKF-ASN Task force. PATIENT WAS FASTINGP ERFORMED BY: [facility]6370 [facility] [id number] GFR/1.73 sq M.predicted among non-blacks CKD-EPI (S/P/Bld) [Vol rate/Area] 90 mL/min/1.73 Normal [facility]; [facility] Work Phone: Comment on above: PATIENT WAS FASTINGP ERFORMED BY: [facility]6370 [facility] [id number] Globulin (S) [Mass/Vol] 3.1 g/dL Normal 1.5-4.5 [facility]; [facility] Work Phone: Comment on above: PATIENT WAS FASTINGP ERFORMED BY: [facility] Cbztjy1199 [address] RoadDublin [place] [id number] Glucose [Mass/Vol] 99 mg/dL Normal 65-99 [facility] Internal Medicine; [facility] Work Phone: Comment on above: PATIENT WAS FASTINGP ERFORMED BY: CB [facility] Feavho0054 [address] RoadDublin [place] [id number] Potassium [Moles/Vol] 4.8 mmol/L Normal 3.5-5.2 [facility] Internal Medicine; [facility] Work Phone: Comment on above: PATIENT WAS FASTINGP ERFORMED BY: CB [facility] Xusiud2699 [address] RoadDublin [place] [id number] Protein [Mass/Vol] 7.3 g/dL Normal 6.0-8.5 [facility] Internal Medicine; [facility] Work Phone: Comment on above: PATIENT WAS FASTINGP ERFORMED BY: [facility] Wwgazc7139 [address] RoadD[address] [place] [id number] Sodium [Moles/Vol] 139 mmol/L Normal 134-144 [facility] Internal Medicine; [facility] Work Phone: Comment on above: PATIENT WAS FASTINGP ERFORMED BY: [facility] Ktutgy2387 [address] RoadDublin [place] [id number] Urea nitrogen [Mass/Vol] 11 mg/dL Normal 6-24 [facility] Internal Medicine; [facility] Work Phone: Comment on above: PATIENT WAS FASTINGP ERFORMED BY: [facility] Rfjacb3069 [address] RoadDublin [place] [id number] Urea nitrogen/Creatinine [Mass ratio] 14 mg/mg Normal 9-23 [facility] Internal Medicine; [facility] Work Phone: Comment on above: PATIENT WAS FASTINGP ERFORMED BY: CB [facility] Oecitl7108 [address] RoadDublin [place] [id number] TSH ([id number])Ordered By: Alice Bhagat on 11-12-2020 TSH Qn 2.170 {uIU/mL} Normal 0.450-4.50 0 [facility]; [facility] Work Phone: Comment on above: PATIENT WAS FASTINGP ERFORMED BY: [employer] [facility] Mlxdau7268 [facility] [id number] VITAMIN B-12 (CYANOCOBALAMIN ) (35877)Ordered By: Systems Admin on 11-12-2020 Cobalamin (Vitamin B12) [Mass/Vol] 975 pg/mL Normal 232-1245 [facility]; [facility] Work Phone: Comment on above: PATIENT WAS FASTINGP ERFORMED BY: [employer] [facility] Fziram2234 [facility] [id number] Vitamin D Hydroxy (08869)Ord ered By: Systems Admin on 11-12-2020 25-hydroxyvitamin D [Mass/Vol] 26.4 ng/mL Abnormal 30.0-100.0 [facility]; [facility] Work Phone: Comment on above: Vitamin D deficiency has been defined by the [place] ofMedicine and an Endocrine Society practice guideline as alevel of serum 25-OH vitamin D less than 20 ng/mL (1,2).The Endocrine Society went on to further define vitamin Dinsufficiency as a level between 21 and 29 ng/mL (2).1. IOM ([place] of Medicine). 2010. Dietary reference intakes for calcium and D. [place]: The National Academies Press.2. Monica MF, Lisa NC, Aye JAMIL, et al. Evaluation, treatment, and prevention of vitamin D deficiency: an Endocrine Society clinical practice guideline. JCEM. 2010; 96(7):1911-30. PATIENT WAS FASTINGP ERFORMED BY: [employer] [facility] Uiekza4840 [facility] [id number] 2019 Novel Coronavirus (COVI D-19), MARCELL ([id number])Ordered By: Systems Admin on 05-26-20202018 Novel Coronavirus (COVID-19), MARCELL (15706) Not Detected Normal [facility]; [facility] Work Phone: Comment on above: Testing was performe d using the Aptima SARS-CoV-2 assay.This nucleic acid amplification test was developed and its performancecharacteristics determined by [employer]. Nucleic acidamplification tests include PCR and TMA. This test has not been FDAcleared or approved. This test has been authorized by FDA under anEmergency Use Authorization (EUA). This test is only authorized forthe duration of time the declaration that circumstances existjustifying the authorization of the emergency use of in vitrodiagnostic tests for detection of SARS-CoV-2 virus and/or diagnosisof COVID-19 infection under section 564(b)(1) of the Act, 21 U.S.C.360bbb-3(b) (1), unless the authorization is terminated or revokedsooner.When diagnostic testing is negative, the possibility of a falsenegative result should be considered in the context of a patient'srecent exposures and the presence of clinical signs and symptomsconsistent with COVID-19. An individual without symptoms of COVID-19and who is not shedding SARS-CoV-2 virus would expect to have anegative (not detected) result in this assay. PATIENT NOT FASTINGP ERFORMED BY: [employer] [place] [id number] 2018 Novel Coronavirus (COVID-19), MARCELL ([id number]) Not detected Normal [facility]; [facility] Work Phone: Comment on above: Testing was performe d using the Aptima SARS-CoV-2 assay.This nucleic acid amplification test was developed and its performancecharacteristics determined by [employer]. Nucleic acidamplification tests include PCR and TMA. This test has not been FDAcleared or approved. This test has been authorized by FDA under anEmergency Use Authorization (EUA). This test is only authorized forthe duration of time the declaration that circumstances existjustifying the authorization of the emergency use of in vitrodiagnostic tests for detection of SARS-CoV-2 virus and/or diagnosisof COVID-19 infection under section 564(b)(1) of the Act, 21 U.S.C.360bbb-3(b) (1), unless the authorization is terminated or revokedsooner.When diagnostic testing is negative, the possibility of a falsenegative result should be considered in the context of a patient'srecent exposures and the presence of clinical signs and symptomsconsistent with COVID-19. An individual without symptoms of COVID-19and who is not shedding SARS-CoV-2 virus would expect to have anegative (not detected) result in this assay. PATIENT NOT FASTINGP ERFORMED BY: [facility] Drivy [id number] [place] [id number] C-REACT PROT HIGH SENS(hsCRP ) (13977)Ordered By: Systems Admin on 08-06-2019 CRP High sensitivity method [Mass/Vol] 5.23 mg/L Abnormal 0.00-3.00 [facility] Work Phone: Comment on above: Relative Risk for Fu ture Cardiovascular Event Low <1.00 Average 1.00 - 3.00 High >3.00 PATIENT WAS FASTINGP ERFORMED BY: [place] [id number] C-REACTIVE PROTEIN ([id number])Or dered By: Systems Admin on 08-06-2019 CRP [Mass/Vol] 6 mg/L Normal 0-10 [facility] Internal [facility] Work Phone: Comment on above: PATIENT WAS FASTINGP ERFORMED BY: [employer] [place] [id number] CBC with auto diff (28736)Or dered By: Systems Admin on 08-06-2019 Basophils (Bld) [#/Vol] 0.1 {x10E3/uL} Normal 0.0-0.2 [facility] Work Phone: Comment on above: PATIENT WAS FASTINGP ERFORMED BY: TopLog70 [address]bl[place] [id number] Basophils (Bld) [#/Vol] 0.1 10*3/uL Normal 0.0-0.2 [facility]; [facility] Work Phone: Comment on above: PATIENT WAS FASTINGP ERFORMED BY: [place] [id number] Basophils/100 WBC (Bld) 1 % Normal [facility] Work Phone: Comment on above: PATIENT WAS FASTINGP ERFORMED BY: [facility] Bacacc3899 [address] Road[address] [place] [id number] Eosinophils (Bld) [#/Vol] 0.2 {x10E3/uL} Normal 0.0-0.4 [facility] Work Phone: Comment on above: PATIENT WAS FASTINGP ERFORMED BY: CB [facility] Vkbije8275 [facility] [id number] Eosinophils (Bld) [#/Vol] 0.2 10*3/uL Normal 0.0-0.4 [facility]; [facility] Work Phone: Comment on above: PATIENT WAS FASTINGP ERFORMED BY: [facility] Zldahf6298 [facility] [id number] Eosinophils/100 WBC (Bld) 3 % Normal [facility] Work Phone: Comment on above: PATIENT WAS FASTINGP ERFORMED BY: [facility] Zikoim5344 [facility] [id number] Erythrocyte distribution width (RBC) [Ratio] 15.7 % Abnormal 11.7-15.4 [facility] Work Phone: Comment on above: PATIENT WAS FASTINGP ERFORMED BY: [facility] Kmngbl9649 [facility] [id number] Hematocrit (Bld) [Volume fraction] 35.6 % Normal 34.0-46.6 [facility] Work Phone: Comment on above: PATIENT WAS FASTINGP ERFORMED BY: [facility] Rmaavh0490 [facility] [id number] Hemoglobin (Bld) [Mass/Vol] 10.6 g/dL Abnormal 11.1-15.9 [facility] Work Phone: Comment on above: PATIENT WAS FASTINGP ERFORMED BY: [facility] Omejgz1329 [facility] [id number] Immature granulocytes (Bld) [#/Vol] 0.0 {x10E3/uL} Normal 0.0-0.1 [facility] Work Phone: Comment on above: PATIENT WAS FASTINGP ERFORMED BY: PRATEEK [facility] Ppbzwo0657 [address] RoadD[address] [place] [id number] Immature granulocytes (Bld) [#/Vol] 0.0 10*3/uL Normal 0.0-0.1 [facility]; [facility] Work Phone: Comment on above: PATIENT WAS FASTINGP ERFORMED BY: [facility] Ckzfhf4986 [address] RoadDublin [place] [id number] Immature granulocytes/100 WBC (Bld) 1 % Normal [facility] Work Phone: Comment on above: PATIENT WAS FASTINGP ERFORMED BY: [facility] Yhwpmo2636 [address] RoadD[address] [place] [id number] Lymphocytes (Bld) [#/Vol] 2.1 {x10E3/uL} Normal 0.7-3.1 [facility] Work Phone: Comment on above: PATIENT WAS FASTINGP ERFORMED BY: [facility] Cszmmh6204 [address] RoadDublin [place] [id number] Lymphocytes (Bld) [#/Vol] 2.1 10*3/uL Normal 0.7-3.1 [facility]; [facility] Work Phone: Comment on above: PATIENT WAS FASTINGP ERFORMED BY: [facility] Mpmbyq5337 Henry RoadDublin [place] [id number] Lymphocytes/100 WBC (Bld) 34 % Normal [facility] Work Phone: Comment on above: PATIENT WAS FASTINGP ERFORMED BY: [facility] Wzmpla6669 Henry RoadDublin [place] [id number] MCH (RBC) [Entitic mass] 22.4 pg Abnormal 26.6-33.0 [facility] Work Phone: Comment on above: PATIENT WAS FASTINGP ERFORMED BY: [facility] Nfyrod0961 [address] RoadDublin [place] [id number] MCHC (RBC) [Mass/Vol] 29.8 g/dL Abnormal 31.5-35.7 [facility] prehensive Internal Medicine Work Phone: Comment on above: PATIENT WAS FASTINGP ERFORMED BY: PRATEEK LabComichael GirardCxjrfw7061 Henry RoadDublin [place] [id number] MCV (RBC) [Entitic vol] 75 fL Abnormal 79-97 [facility] Work Phone: Comment on above: PATIENT WAS FASTINGP ERFORMED BY: PRATEEK LabComichael GirardGbkqea9601 Henry Roadblin [place] [id number] Monocytes (Bld) [#/Vol] 0.4 {x10E3/uL} Normal 0.1-0.9 [facility] Work Phone: Comment on above: PATIENT WAS FASTINGP ERFORMED BY: PRATEEK LabKimo GirardTyrbay5912 Henry RoadUNC Health Johnston [id number] Monocytes (Bld) [#/Vol] 0.4 10*3/uL Normal 0.1-0.9 [facility]; [facility] Work Phone: Comment on above: PATIENT WAS FASTINGP ERFORMED BY: PRATEEK LabComichael GirardOaajws1350 [address] RoadDublin [place] [id number] Monocytes/100 WBC (Bld) 7 % Normal [facility] Work Phone: Comment on above: PATIENT WAS FASTINGP ERFORMED BY: PRATEEK [facility] Ehfqdh1620 [address] RoadFormerly [facility] [place] [id number] Neutrophils (Bld) [#/Vol] 3.6 {x10E3/uL} Normal 1.4-7.0 [facility] Work Phone: Comment on above: PATIENT WAS FASTINGP ERFORMED BY: PRATEEK [facility] Nkqjig2663 [address] RoadDublin [place] [id number] Neutrophils (Bld) [#/Vol] 3.6 10*3/uL Normal 1.4-7.0 [facility]; [facility] Work Phone: Comment on above: PATIENT WAS FASTINGP ERFORMED BY: PRATEEK [facility] Dhvtqe5246 Henry RoadDublin [place] [id number] Neutrophils/100 WBC (Bld) 54 % Normal [facility] Work Phone: Comment on above: PATIENT WAS FASTINGP ERFORMED BY: PRATEEK Alcantara6370 Elaine Val[facility]zNov[facility] [id number] Platelets (Bld) [#/Vol] 377 {x10E3/uL} Normal 150-450 [facility] Work Phone: Comment on above: PATIENT WAS FASTINGP ERFORMED BY: CB [facility] Nwuzek8283 [facility] [id number] Platelets (Bld) [#/Vol] 377 10*3/uL Normal 150-450 [facility]; [facility] Work Phone: Comment on above: PATIENT WAS FASTINGP ERFORMED BY: PRATEEK Pablo Mjuoqj0663 [facility] [id number] RBC (Bld) [#/Vol] 4.73 {x10E6/uL} Normal 3.77-5.28 [facility] Internal Medicine Work Phone: Comment on above: PATIENT WAS FASTINGP ERFORMED BY: [facility] Unyutv9817 [facility] [id number] RBC (Bld) [#/Vol] 4.73 10*6/uL Normal 3.77-5.28 [facility]; [facility] Work Phone: Comment on above: PATIENT WAS FASTINGP ERFORMED BY: [facility] Cxpjar2818 [facility] [id number] WBC (Bld) [#/Vol] 6.4 {x10E3/uL} Normal 3.4-10.8 [facility] Internal Medicine Work Phone: Comment on above: PATIENT WAS FASTINGP ERFORMED BY: [facility] Ftcgfg7355 [facility] [id number] WBC (Bld) [#/Vol] 6.4 10*3/uL Normal 3.4-10.8 [facility] Internal Medicine; [facility] Work Phone: Comment on above: PATIENT WAS FASTINGP ERFORMED BY: PRATEEK [facility] Fpketi0715 [address] RoadDublin [place] [id number] FERRITIN ([id number])Ordered By: Systems Admin on 08-06-2019 Ferritin [Mass/Vol] 7 ng/mL Abnormal 15-150 [facility] Internal Medicine Work Phone: Comment on above: PATIENT WAS FASTINGP ERFORMED BY: CB [facility] Eobgyl2190 [address] RoadDublin [place] [id number] HGB A1C (13359)Ordered By: S ystem Window Sash Installer on 08-06-2019 HbA1c (Bld) [Mass fraction] 5.6 % Normal 4.8-5.6 [facility] Work Phone: Comment on above: . Prediabetes: 5.7 - 6.4 Diabetes: >6.4 Glycemic control for adults with diabetes: <7.0 PATIENT WAS FASTINGP ERFORMED BY: PRATEEK [facility] Jvgxsp4315 [address] RoadDublin [place] [id number] IRON ([id number])Ordered By: Syst em Window Sash Installer on 08-06-2019 Iron [Mass/Vol] 29 ug/dL Normal 27-159 [facility] Internal Medicine Work Phone: Comment on above: PATIENT WAS FASTINGP ERFORMED BY: PRATEEK [facility] Lmxsnk5059 [address]ner[address] RoadDublin [place] [id number] LIPID PANEL (01398)Ordered B y: Systems Admin on 08-06-2019 Cholesterol [Mass/Vol] 159 mg/dL Normal 100-199 [facility] Work Phone: Comment on above: PATIENT WAS FASTINGP ERFORMED BY: CB [facility] Hlzmrb3217 [address] RoadDublin [place] [id number] Cholesterol in HDL [Mass/Vol] 44 mg/dL Normal [facility] Work Phone: Comment on above: PATIENT WAS FASTINGP ERFORMED BY: PRATEEK [facility] Ysevqd0116 [address] RoadDublin [place] [id number] Cholesterol in LDL [Mass/Vol] 98 mg/dL Normal 0-99 [facility] Work Phone: Comment on above: PATIENT WAS FASTINGP ERFORMED BY: PRATEEK LabKimo Bbbygl0633 [address] RoadDublin [place] [id number] Cholesterol in LDL/Cholesterol in HDL [Mass ratio] 2.2 {ratio} Normal 0.0-3.2 [facility] Work Phone: Comment on above: LDL/HDL Ratio Men Wo men 1/2 Avg.Risk 1.0 1.5 Avg.Risk 3.6 3.2 2X Avg.Risk 6.2 5.0 3X Avg.Risk 8.0 6.1 PATIENT WAS FASTINGP ERFORMED BY: PRATEEK LabKimo GirardCizfhi3533 [address] RoadDublin [place] [id number] Cholesterol in VLDL [Mass/Vol] 17 mg/dL Normal 5-40 [facility] Work Phone: Comment on above: PATIENT WAS FASTINGP ERFORMED BY: PRATEEK LabKimo GirardNwbnbr7684 [address] RoadFormerly [facility]in [place] [id number] Triglyceride [Mass/Vol] 86 mg/dL Normal 0-149 [facility] Work Phone: Comment on above: PATIENT WAS FASTINGP ERFORMED BY: PRATEEK LabComichael GirardGivjlu3631 [address] Roadblin [place] [id number] METABOLIC PANEL, COMPREHENSI VE ([id number])Ordered By: Systems Admin on 08-06-2019 Albumin [Mass/Vol] 4.2 g/dL Normal 3.8-4.8 [facility] Internal Medicine Work Phone: Comment on above: PATIENT WAS FASTINGP ERFORMED BY: PRATEEK LabComichael Sgfisj5779 [address] [facility] Hospitalblin [place] [id number] Albumin/Globulin [Mass ratio] 1.5 {ratio} Normal 1.2-2.2 [facility] Work Phone: Comment on above: PATIENT WAS FASTINGP ERFORMED BY: PRATEEK [facility] Lodhux6907 [address] [facility] HospitalDublin [place] [id number] ALP [Catalytic activity/Vol] 63 [iU]/L Normal 39-117 [facility] Work Phone: Comment on above: PATIENT WAS FASTINGP ERFORMED BY: PRATEEK [facility] Savwyy3119 [address] RoadDublin [place] [id number] ALP [Catalytic activity/Vol] 63 U/L Normal 39-117 [facility]; [facility] Work Phone: Comment on above: PATIENT WAS FASTINGP ERFORMED BY: [facility] Nqlurc2645 [address] RoadDublin [place] [id number] ALT [Catalytic activity/Vol] 19 [iU]/L Normal 0-32 [facility] Work Phone: Comment on above: PATIENT WAS FASTINGP ERFORMED BY: [facility] Uncpae6325 [address] RoadDublin [place] [id number] ALT [Catalytic activity/Vol] 19 U/L Normal 0-32 [facility]; [facility] Work Phone: Comment on above: PATIENT WAS FASTINGP ERFORMED BY: [facility] Btciot8185 [address] RoadDublin [place] [id number] AST [Catalytic activity/Vol] 15 [iU]/L Normal 0-40 [facility] Work Phone: Comment on above: PATIENT WAS FASTINGP ERFORMED BY: [facility] Isvhfz5907 [address] RoadDublin [place] [id number] AST [Catalytic activity/Vol] 15 U/L Normal 0-40 [facility]; [facility] Work Phone: Comment on above: PATIENT WAS FASTINGP ERFORMED BY: [facility] Hpratf2946 [address] RoadDublin [place] [id number] Bilirubin [Mass/Vol] 0.2 mg/dL Normal 0.0-1.2 [facility] Internal Medicine Work Phone: Comment on above: PATIENT WAS FASTINGP ERFORMED BY: [facility] Erfjjc8874 [address] RoadDublin [place] [id number] Calcium [Mass/Vol] 9.2 mg/dL Normal 8.7-10.2 [facility] Internal Medicine Work Phone: Comment on above: PATIENT WAS FASTINGP ERFORMED BY: [facility] Mmgdqe5907 [address] RoadDublin [place] [id number] Chloride [Moles/Vol] 105 mmol/L Normal 96-106 [facility] Work Phone: Comment on above: PATIENT WAS FASTINGP ERFORMED BY: CB [facility] Fnrntc5765 [address] RoadDublin [place] [id number] CO2 [Moles/Vol] 23 mmol/L Normal 20-29 [facility] Internal Medicine Work Phone: Comment on above: PATIENT WAS FASTINGP ERFORMED BY: CB [facility] Xgyvpj0596 [address] RoadDublin [place] [id number] Creatinine [Mass/Vol] 0.66 mg/dL Normal 0.57-1.00 [facility] Work Phone: Comment on above: PATIENT WAS FASTINGP ERFORMED BY: CB [facility] Iqsdvr3577 [address] RoadDublin [place] [id number] GFR/1.73 sq M predicted among blacks CKD-EPI (S/P/Bld) [Vol rate/Area] 121 mL/min/1.73 Normal [facility] Work Phone: Comment on above: PATIENT WAS FASTINGP ERFORMED BY: CB [facility] Ttwptt4989 [address] RoadDublin [place] [id number] GFR/1.73 sq M predicted among non-blacks CKD-EPI (S/P/Bld) [Vol rate/Area] 105 mL/min/1.73 Normal [facility] Work Phone: Comment on above: PATIENT WAS FASTINGP ERFORMED BY: CB [facility] Pyugxo0248 [address] RoadFormerly [facility]in [place] [id number] Globulin (S) [Mass/Vol] 2.8 g/dL Normal 1.5-4.5 [facility] Work Phone: Comment on above: PATIENT WAS FASTINGP ERFORMED BY: CB [facility] Nppuch0463 [address] RoadDublin [place] [id number] Glucose [Mass/Vol] 109 mg/dL Abnormal 65-99 [facility] Internal Medicine Work Phone: Comment on above: PATIENT WAS FASTINGP ERFORMED BY: CB [facility] Kldftp0944 [address] RoadDublin [place] [id number] Potassium [Moles/Vol] 4.9 mmol/L Normal 3.5-5.2 [facility] Internal Medicine Work Phone: Comment on above: PATIENT WAS FASTINGP ERFORMED BY: PRATEEK [facility] Vgqzps3999 [address] RoadDublin [place] [id number] Protein [Mass/Vol] 7.0 g/dL Normal 6.0-8.5 [facility] Internal Medicine Work Phone: Comment on above: PATIENT WAS FASTINGP ERFORMED BY: PRATEEK [facility] Cvefyt5415 [address] RoadDublin [place] [id number] Sodium [Moles/Vol] 139 mmol/L Normal 134-144 [facility] Internal Medicine Work Phone: Comment on above: PATIENT WAS FASTINGP ERFORMED BY: PRATEEK LabComichael GirardQhobhn6913 [address] RoadDublin [place] [id number] Urea nitrogen [Mass/Vol] 14 mg/dL Normal 6-24 [facility] Internal Medicine Work Phone: Comment on above: PATIENT WAS FASTINGP ERFORMED BY: PRATEEK [facility] Vvwzrv6352 [address] RoadDublin [place] [id number] Urea nitrogen/Creatinine [Mass ratio] 21 mg/mg Normal 9-23 [facility] Internal Medicine Work Phone: Comment on above: PATIENT WAS FASTINGP ERFORMED BY: PRATEEK [facility] Tvlggp1892 Henry RoadDublin [place] [id number] SED RATE ERYTHROCYTE ([id number]) Ordered By: Systems Admin on 08-06-2019 ESR (Bld) [Velocity] 5 mm/h Normal 0-32 [facility] Internal Medicine Work Phone: Comment on above: PATIENT WAS FASTINGP ERFORMED BY: PRATEEK [facility] Dgaizg8538 Henry RoadDublin [place] [id number] VITAMIN B-12 (CYANOCOBALAMIN ) (49308)Ordered By: Systems Admin on 08-06-2019 Cobalamin (Vitamin B12) [Mass/Vol] 285 pg/mL Normal 232-1245 [facility] Internal Medicine Work Phone: Comment on above: PATIENT NOT FASTINGP ERFORMED BY: DealBird6370 [facility]Trigg [facility] [id number] Vitamin D Hydroxy (54070)Ord ered By: Systems Admin on 08-06-2019 25-Hydroxyvitamin D2+25-Hydroxyvitamin D3 [Mass/Vol] 23.5 ng/mL Abnormal 30.0-100.0 [facility] Work Phone: Comment on above: Vitamin D deficiency has been defined by the [place] ofMedicine and an Endocrine Society practice guideline as alevel of serum 25-OH vitamin D less than 20 ng/mL (1,2).The Endocrine Society went on to further define vitamin Dinsufficiency as a level between 21 and 29 ng/mL (2).1. IOM ([place] of Medicine). 2010. Dietary reference intakes for calcium and D. [place]: The National AcademAdhysteria Press.2. Monica MF, Lisa TORRES, Aye JAMIL, et al. Evaluation, treatment, and prevention of vitamin D deficiency: an Endocrine Society clinical practice guideline. JCEM. 2010; 96(7):1911-30. PATIENT WAS FASTINGP ERFORMED BY: DealBird6370 PutneyNovant Health Medical [facility] Hospital [id number] LDSGI-FEVWSKAXQPH-NALAG (821 05)Ordered By: Systems Admin on 03-02-2019 AFP.tumor marker [Mass/Vol] 2.3 ng/mL Normal 0.0-8.3 [facility] Work Phone: Comment on above: [facility] [employer] El ectrochemiluminescence Immunoassay (ECLIA) .Values obtained with different assay methods or kits cannot beused interchangeably. Results cannot be interpreted as absoluteevidence of the presence or absence of malignant disease. .This test is not interpretable in females. PATIENT NOT FASTINGP ERFORMED BY: DealBird6370 Guru TechnologiesUNC Health Johnston [id number] CBC W/AUTO DIFF WBC (53906)O rdered By: Systems Admin on 03-02-2019 Basophils (Bld) [#/Vol] 0.0 {x10E3/uL} Normal 0.0-0.2 [facility] Work Phone: Comment on above: PATIENT NOT FASTINGP ERFORMED BY: [place] [id number] [facility] [id number] Information: NURSE DRAW Basophils (Bld) [#/Vol] 0.0 10*3/uL Normal 0.0-0.2 [facility]; [facility] Work Phone: Comment on above: PATIENT NOT FASTINGP ERFORMED BY: [address] [id number] Information: NURSE DRAW Basophils/100 WBC (Bld) 1 % Normal [facility] Work Phone: Comment on above: PATIENT NOT FASTINGP ERFORMED BY: [address] [id number] Information: NURSE DRAW Eosinophils (Bld) [#/Vol] 0.2 {x10E3/uL} Normal 0.0-0.4 [facility] Work Phone: Comment on above: PATIENT NOT FASTINGP ERFORMED BY: [address] [id number] Information: NURSE DRAW Eosinophils (Bld) [#/Vol] 0.2 10*3/uL Normal 0.0-0.4 [facility]; [facility] Work Phone: Comment on above: PATIENT NOT FASTINGP ERFORMED BY: [address] [id number] Information: NURSE DRAW Eosinophils/100 WBC (Bld) 2 % Normal [facility] Work Phone: Comment on above: PATIENT NOT FASTINGP ERFORMED BY: [address] [id number] Information: NURSE DRAW Erythrocyte distribution width (RBC) [Ratio] 17.5 % Abnormal 12.3-15.4 [facility] Work Phone: Comment on above: PATIENT NOT FASTINGP ERFORMED BY: [address] [id number] Information: NURSE DRAW Hematocrit (Bld) [Volume fraction] 35.2 % Normal 34.0-46.6 [facility] Work Phone: Comment on above: PATIENT NOT FASTINGP ERFORMED BY: PRATEEK Girardlin6370 [facility] [id number] Information: NURSE DRAW Hemoglobin (Bld) [Mass/Vol] 11.0 g/dL Abnormal 11.1-15.9 [facility] Work Phone: Comment on above: PATIENT NOT FASTINGP ERFORMED BY: PRATEEK Girard[address] [id number] Information: NURSE DRAW Immature granulocytes (Bld) [#/Vol] 0.0 {x10E3/uL} Normal 0.0-0.1 [facility] Work Phone: Comment on above: PATIENT NOT FASTINGP ERFORMED BY: PRATEEK Shah[address] [id number] Information: NURSE DRAW Immature granulocytes (Bld) [#/Vol] 0.0 10*3/uL Normal 0.0-0.1 [facility]; [facility] Work Phone: Comment on above: PATIENT NOT FASTINGP ERFORMED BY: PRATEEK Girard[address] [id number] Information: NURSE DRAW Immature granulocytes/100 WBC (Bld) 0 % Normal [facility] Work Phone: Comment on above: PATIENT NOT FASTINGP ERFORMED BY: PRATEEK Shah[address] [id number] Information: NURSE DRAW Lymphocytes (Bld) [#/Vol] 2.4 {x10E3/uL} Normal 0.7-3.1 [facility] Work Phone: Comment on above: PATIENT NOT FASTINGP ERFORMED BY: PRATEEK Shah[address] [id number] Information: NURSE DRAW Lymphocytes (Bld) [#/Vol] 2.4 10*3/uL Normal 0.7-3.1 [facility]; [facility] Work Phone: Comment on above: PATIENT NOT FASTINGP ERFORMED BY: PRATEEK ElvaComichael GirardIkeowy8475 [facility] [id number] Information: NURSE DRAW Lymphocytes/100 WBC (Bld) 36 % Normal [facility] Work Phone: Comment on above: PATIENT NOT FASTINGP ERFORMED BY: PRATEEK [facility] Ikulxu6674 [facility] [id number] Information: NURSE DRAW MCH (RBC) [Entitic mass] 22.8 pg Abnormal 26.6-33.0 [facility] Internal Medicine Work Phone: Comment on above: PATIENT NOT FASTINGP ERFORMED BY: PRATEEK [facility] Iywjpm4205 [facility] [id number] Information: NURSE DRAW MCHC (RBC) [Mass/Vol] 31.3 g/dL Abnormal 31.5-35.7 [facility] Internal Medicine Work Phone: Comment on above: PATIENT NOT FASTINGP ERFORMED BY: PRATEEK Pablo Wpdjsw8806 [facility] [id number] Information: NURSE DRAW MCV (RBC) [Entitic vol] 73 fL Abnormal 79-97 [facility] Internal Medicine Work Phone: Comment on above: PATIENT NOT FASTINGP ERFORMED BY: PRATEEK ElvaCoVirginia Ville [id number] [facility] [id number] Information: NURSE DRAW Monocytes (Bld) [#/Vol] 0.6 {x10E3/uL} Normal 0.1-0.9 [facility] Work Phone: Comment on above: PATIENT NOT FASTINGP ERFORMED BY: PRATEEK [facility] Xxfidk6978 [facility] [id number] Information: NURSE DRAW Monocytes (Bld) [#/Vol] 0.6 10*3/uL Normal 0.1-0.9 [facility]; [facility] Work Phone: Comment on above: PATIENT NOT FASTINGP ERFORMED BY: PRATEEK LabCoVirginia Ville [id number] [facility] [id number] Information: NURSE DRAW Monocytes/100 WBC (Bld) 9 % Normal [facility] Work Phone: Comment on above: PATIENT NOT FASTINGP ERFORMED BY: PRATEEK Merida [facility] [id number] Information: NURSE DRAW Neutrophils (Bld) [#/Vol] 3.5 {x10E3/uL} Normal 1.4-7.0 [facility] Work Phone: Comment on above: PATIENT NOT FASTINGP ERFORMED BY: PRATEEK PabloVirginia V[place] [id number] [facility] [id number] Information: NURSE DRAW Neutrophils (Bld) [#/Vol] 3.5 10*3/uL Normal 1.4-7.0 [facility]; [facility] Work Phone: Comment on above: PATIENT NOT FASTINGP ERFORMED BY: PRATEEK Pablomichael GirardLlttlz8387 [facility] [id number] Information: NURSE DRAW Neutrophils/100 WBC (Bld) 52 % Normal [facility] Work Phone: Comment on above: PATIENT NOT FASTINGP ERFORMED BY: PRATEEK Pablomichael GirardPrnstd0828 [facility] [id number] Information: NURSE DRAW Platelets (Bld) [#/Vol] 322 {x10E3/uL} Normal 150-450 [facility] Work Phone: Comment on above: PATIENT NOT FASTINGP ERFORMED BY: PRATEEK Pablo Oexktz8157 [facility] [id number] Information: NURSE DRAW Platelets (Bld) [#/Vol] 322 10*3/uL Normal 150-450 [facility]; [facility] Work Phone: Comment on above: PATIENT NOT FASTINGP ERFORMED BY: PRATEEK Pablo Anemgx8566 [facility] [id number] Information: NURSE DRAW RBC (Bld) [#/Vol] 4.83 {x10E6/uL} Normal 3.77-5.28 Co mprehensive Internal Medicine Work Phone: Comment on above: PATIENT NOT FASTINGP ERFORMED BY: PRATEEK LabKimo GirardNkxxws2669 [address] RoadDublin [place] [id number] Information: NURSE DRAW RBC (Bld) [#/Vol] 4.83 10*6/uL Normal 3.77-5.28 [facility] Internal Medicine; [facility] Work Phone: Comment on above: PATIENT NOT FASTINGP ERFORMED BY: CB [facility] Nkfbic2972 [address] RoadDublin [place] [id number] Information: NURSE DRAW WBC (Bld) [#/Vol] 6.7 {x10E3/uL} Normal 3.4-10.8 [facility] Internal Medicine Work Phone: Comment on above: PATIENT NOT FASTINGP ERFORMED BY: PRATEEK [facility] Yiqhgj5630 [address] RoadDublin [place] [id number] Information: NURSE DRAW WBC (Bld) [#/Vol] 6.7 10*3/uL Normal 3.4-10.8 [facility] Internal Medicine; [facility] Internal Medicine Work Phone: Comment on above: PATIENT NOT FASTINGP ERFORMED BY: PRATEEK [facility] Ybggql4541 [address] Roadblin [place] [id number] Information: NURSE DRAW FERRITIN ([id number])Ordered By: Systems Admin on 03-02-2019 Ferritin [Mass/Vol] 7 ng/mL Abnormal 15-150 [facility] Internal Medicine Work Phone: Comment on above: PATIENT NOT FASTINGP ERFORMED BY: CB [facility] Ntgnen0498 [address] RoadDublin [place] [id number] IRON ([id number])Ordered By: Syst em Window Sash Installer on 03-02-2019 Iron [Mass/Vol] 32 ug/dL Normal 27-159 [facility] Internal Medicine Work Phone: Comment on above: PATIENT NOT FASTINGP ERFORMED BY: CB [facility] Bvskyc4092 [address] RoadDublin [place] [id number] METABOLIC PANEL, COMPREHENSI VE ([id number])Ordered By: Systems Admin on 03-02-2019 Albumin [Mass/Vol] 4.4 g/dL Normal 3.5-5.5 [facility] Internal Medicine Work Phone: Comment on above: PATIENT NOT FASTINGP ERFORMED BY: PRATEEK [facility] Hlzwoa2667 [address] RoadDublin [place] [id number] Albumin/Globulin [Mass ratio] 1.6 {ratio} Normal 1.2-2.2 [facility] Work Phone: Comment on above: PATIENT NOT FASTINGP ERFORMED BY: CB [facility] Rfdohw9323 [address] RoadDublin [place] [id number] ALP [Catalytic activity/Vol] 67 [iU]/L Normal 39-117 [facility] Work Phone: Comment on above: PATIENT NOT FASTINGP ERFORMED BY: CB [facility] Uqslue6013 [address] RoadDublin [place] [id number] ALP [Catalytic activity/Vol] 67 U/L Normal 39-117 [facility]; [facility] Work Phone: Comment on above: PATIENT NOT FASTINGP ERFORMED BY: CB [facility] Ufshmi4517 [address] RoadDublin [place] [id number] ALT [Catalytic activity/Vol] 20 [iU]/L Normal 0-32 [facility] Work Phone: Comment on above: PATIENT NOT FASTINGP ERFORMED BY: CB [facility] Jeqbga2641 [address] RoadDublin [place] [id number] ALT [Catalytic activity/Vol] 20 U/L Normal 0-32 [facility]; [facility] Work Phone: Comment on above: PATIENT NOT FASTINGP ERFORMED BY: CB [facility] Zrzbvr2699 [address] RoadDublin [place] [id number] AST [Catalytic activity/Vol] 19 [iU]/L Normal 0-40 [facility] Work Phone: Comment on above: PATIENT NOT FASTINGP ERFORMED BY: CB [facility] Hvbalj2859 [address] RoadDublin [place] [id number] AST [Catalytic activity/Vol] 19 U/L Normal 0-40 [facility]; [facility] Work Phone: Comment on above: PATIENT NOT FASTINGP ERFORMED BY: CB [facility] Hpjtdm3288 Henry RoadDublin [place] [id number] Bilirubin [Mass/Vol] 0.3 mg/dL Normal 0.0-1.2 Comp rehensive Internal Medicine Work Phone: Comment on above: PATIENT NOT FASTINGP ERFORMED BY: CB [facility] Xadscf3119 Henry RoadDublin [place] [id number] Calcium [Mass/Vol] 9.1 mg/dL Normal 8.7-10.2 [facility] Internal Medicine Work Phone: Comment on above: PATIENT NOT FASTINGP ERFORMED BY: CB [facility] Bckohq9440 Henry RoadDublin [place] [id number] Chloride [Moles/Vol] 103 mmol/L Normal 96-106 [facility] Work Phone: Comment on above: PATIENT NOT FASTINGP ERFORMED BY: CB [facility] Dgjhqp0217 [address] RoadDublin [place] [id number] CO2 [Moles/Vol] 21 mmol/L Normal 20-29 [facility] Internal Medicine Work Phone: Comment on above: PATIENT NOT FASTINGP ERFORMED BY: CB [facility] Ppilml0086 [address] RoadDublin [place] [id number] Creatinine [Mass/Vol] 0.72 mg/dL Normal 0.57-1.00 [facility] Work Phone: Comment on above: PATIENT NOT FASTINGP ERFORMED BY: CB [facility] Htthmb7067 [address] RoadDublin [place] [id number] GFR/1.73 sq M predicted among blacks CKD-EPI (S/P/Bld) [Vol rate/Area] 115 mL/min/1.73 Normal [facility] Work Phone: Comment on above: PATIENT NOT FASTINGP ERFORMED BY: CB [facility] Snqoii5607 [address] RoadDublin [place] [id number] GFR/1.73 sq M predicted among non-blacks CKD-EPI (S/P/Bld) [Vol rate/Area] 100 mL/min/1.73 Normal [facility] Internal Medicine Work Phone: Comment on above: PATIENT NOT FASTINGP ERFORMED BY: CB [facility] Tfdqra0983 [address] RoadDublin [place] [id number] Globulin (S) [Mass/Vol] 2.8 g/dL Normal 1.5-4.5 [facility] Internal Medicine Work Phone: Comment on above: PATIENT NOT FASTINGP ERFORMED BY: CB [facility] Gpjmzx3403 Henry RoadDublin [place] [id number] Glucose [Mass/Vol] 98 mg/dL Normal 65-99 [facility] Internal Medicine Work Phone: Comment on above: PATIENT NOT FASTINGP ERFORMED BY: CB [facility] Bynklj0189 [address] RoadDublin [place] [id number] Potassium [Moles/Vol] 4.1 mmol/L Normal 3.5-5.2 [facility] Internal Medicine Work Phone: Comment on above: PATIENT NOT FASTINGP ERFORMED BY: CB [facility] Ztcgsz7572 [address] RoadDublin [place] [id number] Protein [Mass/Vol] 7.2 g/dL Normal 6.0-8.5 [facility] Internal Medicine Work Phone: Comment on above: PATIENT NOT FASTINGP ERFORMED BY: CB [facility] Xrtoju7900 [address] RoadDublin [place] [id number] Sodium [Moles/Vol] 139 mmol/L Normal 134-144 [facility] Internal Medicine Work Phone: Comment on above: PATIENT NOT FASTINGP ERFORMED BY: CB [facility] Quxiga6895 [address] RoadD[address] [place] [id number] Urea nitrogen [Mass/Vol] 10 mg/dL Normal 6-24 [facility] Internal Medicine Work Phone: Comment on above: PATIENT NOT FASTINGP ERFORMED BY: CB [facility] Cadewt1827 [address] RoadDublin [place] [id number] Urea nitrogen/Creatinine [Mass ratio] 14 mg/mg Normal 9-23 [facility] Work Phone: Comment on above: PATIENT NOT FASTINGP ERFORMED BY: PRATEEK Herminio Alcantara6370 [facility] [id number] MICROALBUMINOrdered By: Syst em Window Sash Installer on 03-02-2019 Albumin DL <= 20 mg/L (U) [Mass/Vol] 7.0 ug/mL Normal [facility] Work Phone: Comment on above: PATIENT NOT FASTINGP ERFORMED BY: PRATEEK Herminio Girardlin6370 [facility] [id number] Albumin/Creatinine (U) [Mass ratio] 3.3 {mg/g_creat} Normal 0.0-30.0 [facility] Work Phone: Comment on above: Normal: 0.0 - 30.0 A lbuminuria: 31.0 - 300.0 Clinical albuminuria: >300.0 PATIENT NOT FASTINGP ERFORMED BY: PRATEEK Pablomichael GirardOiwgxu0290 [facility] [id number] Creatinine (U) [Mass/Vol] 210.8 mg/dL Normal [facility] Work Phone: Comment on above: PATIENT NOT FASTINGP ERFORMED BY: PRATEEK Herminio Alcantara6370 [facility] [id number] Basic Metabolic Profile (BMP )on 02-26-2018 Basic metabolic 2000 panel 8 1 Normal 5-15 [facility] Work Phone: Comment on above: [facility] [address] [place], [place], [id number] Basic metabolic 2000 panel 25.0 mmol/L Normal 21.0-32.0 [facility] Work Phone: Comment on above: [facility] [address] [place], [place], [id number] Basic metabolic 2000 panel 139 mmol/L Normal 136-145 [facility] Work Phone: Comment on above: [facility] [address] [place], [place], [id number] Basic metabolic 2000 panel 8.2 mg/dL Abnormal 8.5-10.1 [facility] Work Phone: Comment on above: [facility] [address] [place], [place], [id number] Basic metabolic 2000 panel 23.3 {RATIO} Abnormal 10-20 [facility] Work Phone: Comment on above: [facility] [address] [place], [place], [id number] Basic metabolic 2000 panel 106 mmol/L Normal 98-107 [facility] Work Phone: Comment on above: [facility] [address] [place], [place], [id number] Basic metabolic 2000 panel 101 mg/dL Normal 74-106 [facility] Work Phone: Comment on above: Fasting Glucose resu lt from 100 to 125 mg/dLsuggests IMPAIRED HOMEOSTASIS per A.D.A. criteria.Please note revised GLUCOSE reference range mlmqmkhyy04/02/2018. [facility] [address] [place], [place], [phone] Basic metabolic 2000 panel 18 mg/dL Normal 7-18 [facility] Work Phone: Comment on above: [facility] [address] [place], [place], [address] Basic metabolic 2000 panel 0.77 mg/dL Normal 0.55-1.02 [facility] Work Phone: Comment on above: The validity of the calculated GFR AND GFRAA in patients over70 years has not been determined. Clinical correlation isessential. [facility] [address] [place], [place], [phone] Basic metabolic 2000 panel 85 mL/min Normal [facility] Work Phone: Comment on above: Non- GFR Calc [facility] [address] [place], [place], [address] Basic metabolic 2000 panel 4.3 mmol/L Normal 3.5-5.1 [facility] Work Phone: Comment on above: [facility] [address] [place], [place], [phone] Basic metabolic 2000 panel 98.72 ml/min Normal [facility] Work Phone: Comment on above: [facility] [address] [place], [place], [address]48[address] Basic metabolic 2000 panel 103 mL/min Normal [facility] Work Phone: Comment on above: GFR Calc [facility] [address] [place], [place], [phone] CBC W/Diff, Automatedon 02-11 Absolute Lymph 3.71 {X10_3/ul} Normal 0.83-4.51 Compr ehensive Internal Medicine Work Phone: Absolute Neut 4.4 {X10_3/uL} Normal 2.0-7.7 Compreh ensive Internal Medicine Work Phone: Comment on above: [facility] [address] [place], [address] Basophils/100 WBC (Bld) 0.5 % Normal 0-1 [facility] Work Phone: Comment on above: [facility] [address] [place], [address] Basophils/100 WBC Auto (Bld) 0.5 % Normal 0-1 [facility] Work Phone: Eosinophils/100 WBC (Bld) 2.5 % Normal 0-5 [facility] Work Phone: Comment on above: [facility] [address] [place], [address] Eosinophils/100 WBC Auto (Bld) 2.5 % Normal 0-5 [facility] Work Phone: Erythrocyte distribution width Auto Ratio (RBC) 18.0 % Abnormal 11.6-14.6 [facility] Work Phone: Erythrocyte distribution width Ratio (RBC) 18.0 % Abnormal 11.6-14.6 [facility] Work Phone: Comment on above: [facility] [address] [place], [address] Hematocrit Auto Volume Fraction (Bld) 33.3 % Abnormal 37-47 Comprehens oscar Internal Medicine Work Phone: Hematocrit Volume Fraction (Bld) 33.3 % Abnormal 37-47 [facility] Work Phone: Comment on above: [facility] [address] [place], [address] Hemoglobin mass conc (Bld) 10.3 g/dL Abnormal 12.0-15.0 [facility] Work Phone: Comment on above: [facility] [address] [place], [address] IM GRAN % 0.200 % Normal 0.0-0.9 [facility] Work Phone: Comment on above: IG% - Immature Granu locytes (promyelocytes, myelocytes andmetamyelocytes) > 1% indicates that a LEFT SHIFT is Present. [facility] [address] [place], [address] Lymphocytes #/vol (Bld) 3.71 {X10_3/ul} Normal 0.83-4.51 [facility] Work Phone: Comment on above: [facility] [address] [place], [address] Lymphocytes/100 WBC (Bld) 40.5 % Normal 19-41 [facility] Work Phone: Comment on above: [facility] [address] [place], [address] Lymphocytes/100 WBC Auto (Bld) 40.5 % Normal 19-41 [facility] Work Phone: MCH Auto Entitic mass (RBC) 23.2 pg Abnormal 27.0-32.0 [facility] Work Phone: MCH Entitic mass (RBC) 23.2 pg Abnormal 27.0-32.0 [facility] Work Phone: Comment on above: [facility] [address] [place], [address] MCHC Auto mass conc (RBC) 30.9 {g/gl} Abnormal 32-36 [facility] Work Phone: MCHC mass conc (RBC) 30.9 {g/gl} Abnormal 32-36 [facility] prehensive Internal Medicine Work Phone: Comment on above: [facility] [address] [place], [place], [phone](267 MCV Auto Entitic volume (RBC) 75.0 fL Abnormal 81-99 [facility] Work Phone: MCV Entitic volume (RBC) 75.0 fL Abnormal 81-99 [facility] Work Phone: Comment on above: [facility] [address] [place], [address] Monocytes/100 WBC Auto (Bld) 8.5 % Normal 0-10 [facility] Work Phone: Comment on above: [facility] [address] [place], [address] Neutrophils/100 WBC (Bld) 47.8 % Normal 47-70 [facility] Work Phone: Comment on above: [facility] [address] [place], [address] Neutrophils/100 WBC Auto (Bld) 47.8 % Normal 47-70 [facility] Work Phone: Platelet mean volume Auto Entitic volume (Bld) 10.5 fL Normal 6.2-12.0 [facility] Work Phone: Platelet mean volume Entitic volume (Bld) 10.5 fL Normal 6.2-12.0 Comprehensi ve Internal Medicine Work Phone: Comment on above: [facility] [address] [place], [address] Platelets #/vol (Bld) 327 10*3/uL Normal 150-450 Co mprehensive Internal Medicine Work Phone: Comment on above: [facility] [address] [place], [address] Platelets Auto #/vol (Bld) 327 10*3/uL Normal 150-450 [facility] Work Phone: RBC #/vol (Bld) 4.44 {M/mm3} Normal 4.2-5.4 Compreh ensive Internal Medicine Work Phone: Comment on above: [facility] [address] [place], [address] RBC Auto #/vol (Bld) 4.44 {M/mm3} Normal 4.2-5.4 Co mprehensive Internal Medicine Work Phone: RDW SD 47.7 fL Abnormal 35.1-43.9 [facility] Work Phone: Comment on above: [facility] [address] [place], [address] WBC #/vol (Bld) 9.2 10*3/uL Normal 4.4-11.0 Comprehe nsive Internal Medicine Work Phone: Comment on above: [facility] [address] [place], [address] WBC Auto #/vol (Bld) 9.2 10*3/uL Normal 4.4-11.0 Com prehensive Internal Medicine Work Phone: ,Serum,hCG Quali.on 02-26-2018 HCG Qual triggr < 1 Normal Comprehen [facility] Internal [facility] Work Phone: HCGSQUAL Negative Normal 0-9 Nonpreg [facility] Work Phone: ,Serum,hCG Quali. < 1 Normal [facility] Work Phone: Comment on above: [facility] [address] [place], [place], [address] ,Serum,hCG Quali. Negative Normal 0-9 Nonpreg [facility] Work Phone: Comment on above: [facility] [address] [place], [place], [address] Urinalysis, Completeon 02-26 Protein mass conc (U) 15 mg/dL Abnormal Com prehensive Internal Medicine Work Phone: Comment on above: How was Urine Obtain ed? [facility] [address] [place], [place], [phone] RBC #/vol (U) 0 SEEN Normal 0-5 Comprehensi ve Internal Medicine Work Phone: Comment on above: How was Urine Obtain ed? [facility] [address] [place], [address] RBC Test strip #/vol (U) 0 SEEN Normal 0-5 [facility] Work Phone: Urinalysis complete panel - Urine Normal Normal [facility] Work Phone: Comment on above: How was Urine Obtain ed? [facility] [address] [place], [address] Urinalysis complete panel - Urine 0-5 SEEN Normal 0-5 [facility] Work Phone: Comment on above: How was Urine Obtain ed? [facility] [address] [place], [place], [phone] Urinalysis complete panel - Urine Clear Normal [facility] Work Phone: Comment on above: How was Urine Obtain ed? [facility] [address] [place], [address] Urinalysis complete panel - Urine 5-10 SEEN Normal 5-10 [facility] Work Phone: Comment on above: How was Urine Obtain ed? [facility] [address] [place] [address], [address] Urinalysis complete panel - Urine Yellow Normal [facility] Work Phone: Comment on above: How was Urine Obtain ed? [facility] [address] [place], [address] Urinalysis complete panel - Urine 25 /ul Abnormal [facility] Work Phone: Comment on above: How was Urine Obtain ed? [facility] [address] [place], [address] Urinalysis complete panel - Urine 0 SEEN Normal [facility] Work Phone: Comment on above: How was Urine Obtain ed? [facility] [address] [place], [address] Urinalysis complete panel - Urine 150 /ul Abnormal [facility] Work Phone: Comment on above: How was Urine Obtain ed? [facility] [address] [place], [address] Urinalysis complete panel - Urine Negative Normal [facility] Work Phone: Comment on above: How was Urine Obtain ed? [facility] [address] [place], [address] Urinalysis complete panel - Urine 1 mg/dL Abnormal [facility] Work Phone: Comment on above: How was Urine Obtain ed? [facility] [address] [place], [address] Urinalysis complete panel - Urine 15 mg/dL Abnormal [facility] Work Phone: Urinalysis complete panel - Urine 6.5 1 Normal 5.0 - 8.0 [facility] Work Phone: Comment on above: How was Urine Obtain ed? [facility] [address] [place], [place], [phone] Urinalysis complete panel - Urine 1.015 1 Normal 1.002-1.03 0 [facility] Work Phone: Comment on above: How was Urine Obtain ed? [facility] [address] [place], [place], [address] Urinalysis complete panel - Urine 5 mg/dL Abnormal [facility] Work Phone: Comment on above: How was Urine Obtain ed? [facility] [address] [place], [place], [id number] MEEIF-ILSRLUAGHLI-STXKT ([id number] [id number])on 10-19-2017 AFP.tumor marker mass conc 2.1 ng/mL Normal 0.0-8.3 [facility] Work Phone: Comment on above: Mahendra ECLIA methodol ogy PATIENT NOT FASTINGP ERFORMED BY: PRATEEK Alcantara6370 [facility] [id number] ANTISTREPTOLYSIN O-TITER ([id number] [id number])on 10-19-2017 Streptolysin O Ab Qn [IU]/mL Normal 0.0-200.0 Comp rehensive Internal Medicine Work Phone: Comment on above: PATIENT NOT FASTINGP ERFORMED BY: PRATEEK LabenGenemichael GirardTgbnht1905 [facility] [place] [id number] ANTISTREPTOLYSIN O-TITER ([id number] [id number])Ordered By: Systems Admin on 10-19-2017 Streptolysin O Ab Qn [IU]/mL Normal 0.0-200.0 Comp rehensive Internal Medicine; [facility] Work Phone: Comment on above: PATIENT NOT FASTINGP ERFORMED BY: PRATEEK [employer] Wumwqu9002 HenryTOMODONov[facility] [id number] C-REACTIVE PROTEIN ([id number])on 10-19-2017 CRP mass conc 9.1 mg/L Abnormal 0.0-4.9 Comprehensi ve Internal Medicine Work Phone: Comment on above: PATIENT NOT FASTINGP ERFORMED BY: PRATEEK LabCoAtlantiCare [facility] Main[facility] CampusEoiqbf7175 [facility] [id number] CBC with auto diff ([id number])on 10-19-2017 Basophils #/vol (Bld) 0.0 {x10E3/uL} Normal 0.0-0.2 [facility] Work Phone: Comment on above: PATIENT NOT FASTINGP ERFORMED BY: PRATEEK LabTaylor [place] [id number] [facility] [id number] Information: SRC:TH Basophils Auto #/vol (Bld) 0.0 {x10E3/uL} Normal 0.0-0.2 [facility] Work Phone: Basophils/100 WBC (Bld) 0 % Normal [facility] Work Phone: Comment on above: PATIENT NOT FASTINGP ERFORMED BY: PRATEEK [place] [id number] [facility] [id number] Information: SRC:TH Basophils/100 WBC Auto (Bld) 0 % Normal [facility] Work Phone: Eosinophils #/vol (Bld) 0.2 {x10E3/uL} Normal 0.0-0.4 [facility] Work Phone: Comment on above: PATIENT NOT FASTINGP ERFORMED BY: LabTaylor [place] [id number] [facility] [id number] Information: SRC:TH Eosinophils Auto #/vol (Bld) 0.2 {x10E3/uL} Normal 0.0-0.4 [facility] Work Phone: Eosinophils/100 WBC (Bld) 2 % Normal [facility] Work Phone: Comment on above: PATIENT NOT FASTINGP ERFORMED BY: LabTaylor [place] [id number] [facility] [id number] Information: SRC:TH Eosinophils/100 WBC Auto (Bld) 2 % Normal [facility] Work Phone: Erythrocyte distribution width Auto Ratio (RBC) 16.3 % Abnormal 12.3-15.4 [facility] Work Phone: Erythrocyte distribution width Ratio (RBC) 16.3 % Abnormal 12.3-15.4 [facility] Work Phone: Comment on above: PATIENT NOT FASTINGP ERFORMED BY: PRATEEK ElvaJulio Mwlpzo2235 [facility] [id number] Information: SRC:TH Hematocrit Auto Volume Fraction (Bld) 37.7 % Normal 34.0-46.6 [facility] Internal Medicine Work Phone: Hematocrit Volume Fraction (Bld) 37.7 % Normal 34.0-46.6 [facility] Internal Medicine Work Phone: Comment on above: PATIENT NOT FASTINGP ERFORMED BY: PRATEEK [place] [id number] [facility] [id number] Information: SRC:TH Hemoglobin mass conc (Bld) 11.6 g/dL Normal 11.1-15.9 [facility] Work Phone: Comment on above: PATIENT NOT FASTINGP ERFORMED BY: PRATEEK ElvaKimo Agldtg6157 [facility] [id number] Information: SRC:TH Immature granulocytes #/vol (Bld) 0.0 {x10E3/uL} Normal 0.0-0.1 [facility] Work Phone: Comment on above: PATIENT NOT FASTINGP ERFORMED BY: PRATEEK LabAsc[facility]6370 [facility] [id number] Information: SRC:TH Immature granulocytes/100 WBC (Bld) 0 % Normal [facility] Work Phone: Comment on above: PATIENT NOT FASTINGP ERFORMED BY: PRATEEK LabTaylor [place] [id number] [facility] [id number] Information: SRC:TH Lymphocytes #/vol (Bld) 2.7 {x10E3/uL} Normal 0.7-3.1 [facility] Work Phone: Comment on above: PATIENT NOT FASTINGP ERFORMED BY: PRATEEK Merida [facility] [id number] Information: SRC:TH Lymphocytes Auto #/vol (Bld) 2.7 {x10E3/uL} Normal 0.7-3.1 [facility] Work Phone: Lymphocytes/100 WBC (Bld) 34 % Normal [facility] Work Phone: Comment on above: PATIENT NOT FASTINGP ERFORMED BY: PRATEEK Girardlin6370 [facility] [id number] Information: SRC:TH Lymphocytes/100 WBC Auto (Bld) 34 % Normal [facility] Work Phone: MCH Auto Entitic mass (RBC) 23.4 pg Abnormal 26.6-33.0 [facility] Work Phone: MCH Entitic mass (RBC) 23.4 pg Abnormal 26.6-33.0 [facility] Work Phone: Comment on above: PATIENT NOT FASTINGP ERFORMED BY: PRATEEK Alcantara6370 [facility] [id number] Information: SRC:TH MCHC Auto mass conc (RBC) 30.8 g/dL Abnormal 31.5-35.7 [facility] Work Phone: MCHC mass conc (RBC) 30.8 g/dL Abnormal 31.5-35.7 [facility] Internal Medicine Work Phone: Comment on above: PATIENT NOT FASTINGP ERFORMED BY: PRATEEK Girardlin6370 [facility] [id number] Information: SRC:TH MCV Auto Entitic volume (RBC) 76 fL Abnormal 79-97 [facility] Work Phone: MCV Entitic volume (RBC) 76 fL Abnormal 79-97 [facility] Work Phone: Comment on above: PATIENT NOT FASTINGP ERFORMED BY: PRATEEK Girardlin6370 [facility] [id number] Information: SRC:TH Monocytes #/vol (Bld) 0.5 {x10E3/uL} Normal 0.1-0.9 [facility] Work Phone: Comment on above: PATIENT NOT FASTINGP ERFORMED BY: PRATEEK Alcantara6370 [facility] [id number] Information: SRC:TH Monocytes Auto #/vol (Bld) 0.5 {x10E3/uL} Normal 0.1-0.9 [facility] Work Phone: Monocytes/100 WBC (Bld) 7 % Normal [facility] Work Phone: Comment on above: PATIENT NOT FASTINGP ERFORMED BY: PRATEEK Alcantara6370 [facility] [id number] Information: SRC:TH Monocytes/100 WBC Auto (Bld) 7 % Normal [facility] Work Phone: Neutrophils #/vol (Bld) 4.5 {x10E3/uL} Normal 1.4-7.0 [facility] Work Phone: Comment on above: PATIENT NOT FASTINGP ERFORMED BY: PRATEEK Andrade70 [facility] [id number] Information: SRC:TH Neutrophils Auto #/vol (Bld) 4.5 {x10E3/uL} Normal 1.4-7.0 [facility] Work Phone: Neutrophils/100 WBC (Bld) 57 % Normal [facility] Work Phone: Comment on above: PATIENT NOT FASTINGP ERFORMED BY: PRATEEK Girardlin6370 [facility] [id number] Information: SRC:TH Neutrophils/100 WBC Auto (Bld) 57 % Normal [facility] Work Phone: Platelets #/vol (Bld) 346 {x10E3/uL} Normal 150-379 [facility] Work Phone: Comment on above: PATIENT NOT FASTINGP ERFORMED BY: CB [place] [id number] [facility] [id number] Information: SRC:TH Platelets Auto #/vol (Bld) 346 {x10E3/uL} Normal 150-379 [facility] Work Phone: RBC #/vol (Bld) 4.96 {x10E6/uL} Normal 3.77-5.28 [facility] Internal Medicine Work Phone: Comment on above: PATIENT NOT FASTINGP ERFORMED BY: PRATEEK [place] [id number] [facility] [id number] Information: SRC:TH RBC Auto #/vol (Bld) 4.96 {x10E6/uL} Normal 3.77-5.28 [facility] Work Phone: WBC #/vol (Bld) 7.9 {x10E3/uL} Normal 3.4-10.8 [facility] Internal Medicine Work Phone: Comment on above: PATIENT NOT FASTINGP ERFORMED BY: PRATEEK [place] [id number] [facility] [id number] Information: SRC:TH WBC Auto #/vol (Bld) 7.9 {x10E3/uL} Normal 3.4-10.8 [facility] Internal Medicine Work Phone: CBC with auto diff ([id number])Or dered By: Systems Admin on 10-19-2017 Basophils (Bld) [#/Vol] 0.0 10*3/uL Normal 0.0-0.2 [facility]; [facility] Work Phone: Comment on above: PATIENT NOT FASTINGP ERFORMED BY: PRATEEK [place] [id number] [facility] [id number] Information: SRC:TH Eosinophils (Bld) [#/Vol] 0.2 10*3/uL Normal 0.0-0.4 [facility]; [facility] Work Phone: Comment on above: PATIENT NOT FASTINGP ERFORMED BY: PRATEEK [place] [id number] [facility] [id number] Information: SRC:TH Immature granulocytes (Bld) [#/Vol] 0.0 10*3/uL Normal 0.0-0.1 [facility] Internal Medicine; [facility] Work Phone: Comment on above: PATIENT NOT FASTINGP ERFORMED BY: PRATEEK Alcantara6370 [facility] [id number] Information: SRC:TH Lymphocytes (Bld) [#/Vol] 2.7 10*3/uL Normal 0.7-3.1 [facility] Internal Medicine; [facility] Work Phone: Comment on above: PATIENT NOT FASTINGP ERFORMED BY: PRATEEK [facility] Mdrjkq6409 [facility] [id number] Information: SRC:TH Monocytes (Bld) [#/Vol] 0.5 10*3/uL Normal 0.1-0.9 [facility]; [facility] Work Phone: Comment on above: PATIENT NOT FASTINGP ERFORMED BY: CB LabComichael GirardMmymna1713 [facility] [id number] Information: SRC:TH Neutrophils (Bld) [#/Vol] 4.5 10*3/uL Normal 1.4-7.0 [facility] Internal Medicine; [facility] Work Phone: Comment on above: PATIENT NOT FASTINGP ERFORMED BY: PRATEEK LabKimo GirardBuxqri8304 [facility] [id number] Information: SRC:TH Platelets (Bld) [#/Vol] 346 10*3/uL Normal 150-379 [facility] Internal Medicine; [facility] Work Phone: Comment on above: PATIENT NOT FASTINGP ERFORMED BY: CB [facility] Peving9046 [facility] [id number] Information: SRC:TH RBC (Bld) [#/Vol] 4.96 10*6/uL Normal 3.77-5.28 [facility] Internal Medicine; [facility] Work Phone: Comment on above: PATIENT NOT FASTINGP ERFORMED BY: CB [facility] Vzqaqi5060 [facility] [id number] Information: SRC:TH WBC (Bld) [#/Vol] 7.9 10*3/uL Normal 3.4-10.8 [facility] Internal Medicine; [facility] Work Phone: Comment on above: PATIENT NOT FASTINGP ERFORMED BY: PRATEEK Causey Zzbzhx7438 [facility] [id number] Information: SRC: FERRITIN (92626)on 8 Ferritin mass conc 10 ng/mL Abnormal 15-150 [facility] Internal Medicine Work Phone: Comment on above: PATIENT NOT FASTINGP ERFORMED BY: PRATEEK ElvaKimo GirardSwxxmv5748 [facility] [id number] HGB A1C (71424)on 10-19-2017 Hemoglobin A1c/Hemoglobin.total mass fraction (Bld) 5.8 % Abnormal 4.8-5.6 [facility] Medicine Work Phone: Comment on above: . Pre-diabetes: 5.7 - 6.4 Diabetes: >6.4 Glycemic control for adults with diabetes: <7.0 PATIENT NOT FASTINGP ERFORMED BY: PRATEEK ElvaKimo GirardXzphwp9108 [facility] [id number] IRON BINDING CAPACITY (TIBC) (50769)on 10-19-2017 Iron binding capacity mass conc 510 ug/dL Abnormal 250-450 [facility] Work Phone: Comment on above: PATIENT NOT FASTINGP ERFORMED BY: PRATEEK LabKimo GirardIkijco0751 [facility] [id number] Iron binding capacity.unsaturated mass conc 476 ug/dL Abnormal 131-425 [facility] Work Phone: Comment on above: PATIENT NOT FASTINGP ERFORMED BY: PRATEEK LabKimo GirardOfrzwa3557 [facility] [id number] Iron mass conc 34 ug/dL Normal 27-159 Comprehens oscar Internal Medicine Work Phone: Comment on above: PATIENT NOT FASTINGP ERFORMED BY: PRATEEK LabComichael GirardJbgdxw9435 [address] RoadD[address] [place] [id number] Iron saturation mass fraction 7 % Abnormal 15-55 [facility] Work Phone: Comment on above: PATIENT NOT FASTINGP ERFORMED BY: CB [facility] Qmyqje2378 [address] Road[address] [place] [id number] METABOLIC PANEL, COMPREHENSI VE (52869)on 10-19-2017 Albumin mass conc 4.3 g/dL Normal 3.5-5.5 Compre[facility] Internal Medicine Work Phone: Comment on above: PATIENT NOT FASTINGP ERFORMED BY: CB [facility] Xhymrr0933 [address] RoadD[address] [place] [id number] Albumin/Globulin mass ratio 1.3 {ratio} Normal 1.2-2.2 [facility] Internal Medicine Work Phone: Comment on above: PATIENT NOT FASTINGP ERFORMED BY: CB [facility] Gnovmq7521 [address] RoadDublin [place] [id number] ALP enzyme act/vol 62 [iU]/L Normal 39-117 [facility] Work Phone: Comment on above: PATIENT NOT FASTINGP ERFORMED BY: CB [facility] Syjhsb0760 [address] RoadD[address] [place] [id number] ALT enzyme act/vol 13 [iU]/L Normal 0-32 [facility] Internal Medicine Work Phone: Comment on above: PATIENT NOT FASTINGP ERFORMED BY: CB [facility] Lyemfw2631 [address] RoadD[address] [place] [id number] AST enzyme act/vol 13 [iU]/L Normal 0-40 [facility] Work Phone: Comment on above: PATIENT NOT FASTINGP ERFORMED BY: CB [facility] Xtgaah2212 [address] [place] [id number] Bilirubin mass conc 0.3 mg/dL Normal 0.0-1.2 [facility] Internal Medicine Work Phone: Comment on above: PATIENT NOT FASTINGP ERFORMED BY: CB [facility] Rcmtxm3430 [address] Road[address] [place] [id number] Calcium mass conc 8.9 mg/dL Normal 8.7-10.2 Compreh ensive Internal Medicine Work Phone: Comment on above: PATIENT NOT FASTINGP ERFORMED BY: PRATEEK [facility] Eieqfz4347 [facility] [place] [id number] Chloride molar conc 98 mmol/L Normal 96-106 Compr ehensive Internal Medicine Work Phone: Comment on above: PATIENT NOT FASTINGP ERFORMED BY: CB [facility] Tomzqj5774 [facility] [place] [id number] CO2 molar conc 23 mmol/L Normal 18-29 Comprehens oscar Internal Medicine Work Phone: Comment on above: PATIENT NOT FASTINGP ERFORMED BY: CB [facility] Lirwpb6276 [facility] [place] [id number] Creatinine mass conc 0.74 mg/dL Normal 0.57-1.00 Comp rehensive Internal Medicine Work Phone: Comment on above: PATIENT NOT FASTINGP ERFORMED BY: CB [facility] Pzfdej4064 [facility] [id number] GFR/1.73 sq M predicted among blacks CKD-EPI vol rate/area (S/P/Bld) 112 mL/min/1.73 Normal Comprehensiv e Internal Medicine Work Phone: Comment on above: PATIENT NOT FASTINGP ERFORMED BY: CB [facility] Xrdbju7216 [facility] [place] [id number] GFR/1.73 sq M predicted among non-blacks CKD-EPI vol rate/area (S/P/Bld) 97 mL/min/1.73 Normal [facility] Work Phone: Comment on above: PATIENT NOT FASTINGP ERFORMED BY: CB [facility] Lwwxpi1050 [facility] [place] [id number] Globulin Calculated mass conc (S) 3.2 g/dL Normal 1.5-4.5 [facility] Work Phone: Globulin mass conc (S) 3.2 g/dL Normal 1.5-4.5 [facility] Work Phone: Comment on above: PATIENT NOT FASTINGP ERFORMED BY: PRATEEK [facility] Uqkiai2082 [address] RoadD[address] [place] [id number] Glucose mass conc 92 mg/dL Normal 65-99 Compreh ensive Internal Medicine Work Phone: Comment on above: PATIENT NOT FASTINGP ERFORMED BY: PRATEEK [facility] Eezqdm1682 [address] RoadD[address] [place] [id number] Potassium molar conc 4.5 mmol/L Normal 3.5-5.2 Comp rehensive Internal Medicine Work Phone: Comment on above: PATIENT NOT FASTINGP ERFORMED BY: PRATEEK [facility] Buurcf8364 [address] RoadD[address] [place] [id number] Protein mass conc 7.5 g/dL Normal 6.0-8.5 Compreh ensive Internal Medicine Work Phone: Comment on above: PATIENT NOT FASTINGP ERFORMED BY: PRATEEK [facility] Yfweif6878 [address] RoadD[address] [place] [id number] Sodium molar conc 137 mmol/L Normal 134-144 Compreh ensive Internal Medicine Work Phone: Comment on above: PATIENT NOT FASTINGP ERFORMED BY: PRATEEK [facility] Zulhfr1542 [address] RoadD[address] [place] [id number] Urea nitrogen mass conc 10 mg/dL Normal 6-24 [facility] Work Phone: Comment on above: PATIENT NOT FASTINGP ERFORMED BY: PRATEEK [facility] Cqgpmb7811 [address] RoadD[address] [place] [id number] Urea nitrogen/Creatinine mass ratio 14 mg/mg Normal 9-23 [facility] Work Phone: Comment on above: PATIENT NOT FASTINGP ERFORMED BY: PRATEEK [facility] Gflesd7286 [address] RoadD[address] [place] [id number] METABOLIC PANEL, COMPREHENSI VE (40095)Ordered By: Systems Admin on 10-19-2017 ALP [Catalytic activity/Vol] 62 U/L Normal 39-117 [facility]; [facility] Work Phone: Comment on above: PATIENT NOT FASTINGP ERFORMED BY: PRATEEK [facility] Cqnvvi3073 [address] RoadD[address] [place] [id number] ALT [Catalytic activity/Vol] 13 U/L Normal 0-32 [facility]; [facility] Work Phone: Comment on above: PATIENT NOT FASTINGP ERFORMED BY: PRATEEK LabComichael AlcantaraMzdlrw4688 [address] RoadDublin [place] [id number] AST [Catalytic activity/Vol] 13 U/L Normal 0-40 [facility]; [facility] Work Phone: Comment on above: PATIENT NOT FASTINGP ERFORMED BY: PRATEEK [facility] Fbqizj8689 [facility] [place] [id number] MICROALBUMINon 10-19-2017 Albumin DL <= 20 mg/L mass conc (U) 8.1 ug/mL Normal [facility] Work Phone: Comment on above: PATIENT NOT FASTINGP ERFORMED BY: PRATEEK [facility] Ldbodi3416 [facility]UNC [facility] [id number] Albumin/Creatinine mass ratio (U) 3.7 {mg/g_creat} Normal 0.0-30.0 [facility] Work Phone: Comment on above: PATIENT NOT FASTINGP ERFORMED BY: PRATEEK [facility] Zumhuw6486 [facility] [place] [id number] Creatinine mass conc (U) 219.9 mg/dL Normal [facility] Internal Medicine Work Phone: Comment on above: PATIENT NOT FASTINGP ERFORMED BY: PRATEEK [facility] Hoazyr1844 [facility] [id number] SED RATE ERYTHROCYTE (36547) on 10-19-2017 ESR Velocity (Bld) 9 mm/h Normal 0-32 Compre [facility] Internal Medicine Work Phone: Comment on above: PATIENT NOT FASTINGP ERFORMED BY: PRATEEK [facility] Cfnmze3092 [facility] [place] [id number] T3, FREE (TRIDOTHYRONINE) (7 4242)on 10-19-2017 T3 free mass conc 2.9 pg/mL Normal 2.0-4.4 [facility] Work Phone: Comment on above: PATIENT NOT FASTINGP ERFORMED BY: PRATEEK [facility] Iorvua4162 [address] Roadbl[address] [place] [id number] T4, FREE (THYROXINE) (27805) on 10-19-2017 T4 free mass conc 1.29 ng/dL Normal 0.82-1.77 Compreh ensive Internal Medicine Work Phone: Comment on above: PATIENT NOT FASTINGP ERFORMED BY: CB [facility] Xzoynk5926 [facility] [place] [id number] THROAT CULTURE (00700)on Bacteria identified Respiratory culture Nom (Unsp spec) RRF Normal [facility] Work Phone: Comment on above: Routine respiratory rafal PATIENT NOT FASTINGP ERFORMED BY: CB [facility] Nxaaav9422 [address] Roadbl[address] [place] [id number] Bacteria identified Respiratory culture Nom (Unsp spec) Final report Normal [facility] Work Phone: Comment on above: PATIENT NOT FASTINGP ERFORMED BY: CB [facility] Zxdneu3307 [facility] [place] [id number] TSH (50320)on 10-19-2017 Thyrotropin Qn 2.070 {uIU/mL} Normal 0.450-4.50 0 [facility] Work Phone: Comment on above: PATIENT NOT FASTINGP ERFORMED BY: CB [facility] Lufgxy9958 [facility] [place] [id number] VITAMIN B-12 (CYANOCOBALAMIN ) (35213)on 10-19-2017 Cobalamin (Vitamin B12) mass conc 306 pg/mL Normal 232-1245 [facility] Work Phone: Comment on above: PATIENT NOT FASTINGP ERFORMED BY: CB [facility] Zzjqgv0846 [facility] [place] [id number] Vitamin D Hydroxy (73311)on 10-19-2017 25-Hydroxyvitamin D2+25-Hydroxyvitamin D3 mass conc 23.8 ng/mL Abnormal 30.0-100.0 [facility] Work Phone: Comment on above: Vitamin D deficiency has been defined by the [place] of[place]icine and an Endocrine Society practice guideline as alevel of serum 25-OH vitamin D less than 20 ng/mL (1,2).The Endocrine Society went on to further define vitamin Dinsufficiency as a level between 21 and 29 ng/mL (2).1. IOM ([place] [employer]). 2010. Dietary reference intakes for calcium and D. [place]: The National Academies Press.2. Monica MF, Lisa NC, Aye JAMIL, et al. Evaluation, treatment, and prevention of vitamin D deficiency: an Endocrine Society clinical practice guideline. JCEM. 2010; 96(1):1911-30. PATIENT NOT FASTINGP ERFORMED BY: CB [facility] Uhsiqz9300 [employer] TechnologiesFormerly [facility] [place] [id number] CBC, PLATELETS & MANUAL DIFF (29523)on 06-09-2017 Basophils #/vol (Bld) 0.1 {x10E3/uL} Normal 0.0-0.2 [facility] Work Phone: Comment on above: PATIENT NOT FASTINGP ERFORMED BY: CB [facility] Njdqjc9645 Henry freshbagFormerly [facility], [facility] [place] [id number] Basophils Auto #/vol (Bld) 0.1 {x10E3/uL} Normal 0.0-0.2 [facility] Work Phone: Basophils/100 WBC (Bld) 1 % Normal [facility] Work Phone: Comment on above: PATIENT NOT FASTINGP ERFORMED BY: [place] LabenGenerp Dtiuge0799 [employer] TechnologiesUNC Health Johnston [id number] Basophils/100 WBC Auto (Bld) 1 % Normal [facility] Work Phone: Eosinophils #/vol (Bld) 0.1 {x10E3/uL} Normal 0.0-0.4 [facility] Work Phone: Comment on above: PATIENT NOT FASTINGP ERFORMED BY: [place] [facility] Mzrjwk3151 [facility] [id number] Eosinophils Auto #/vol (Bld) 0.1 {x10E3/uL} Normal 0.0-0.4 [facility] Work Phone: Eosinophils/100 WBC (Bld) 2 % Normal [facility] Work Phone: Comment on above: PATIENT NOT FASTINGP ERFORMED BY: PRATEEK Alcantara6370 [facility] [place] [id number] Eosinophils/100 WBC Auto (Bld) 2 % Normal [facility] Work Phone: Erythrocyte distribution width Auto Ratio (RBC) 17.1 % Abnormal 12.3-15.4 [facility] Work Phone: Erythrocyte distribution width Ratio (RBC) 17.1 % Abnormal 12.3-15.4 [facility] Work Phone: Comment on above: PATIENT NOT FASTINGP ERFORMED BY: PRATEEK Girardlin6370 [facility] [id number] Hematocrit Auto Volume Fraction (Bld) 37.1 % Normal 34.0-46.6 [facility] Internal Medicine Work Phone: Hematocrit Volume Fraction (Bld) 37.1 % Normal 34.0-46.6 [facility] Work Phone: Comment on above: PATIENT NOT FASTINGP ERFORMED BY: PRATEEK Girardlin6370 [facility] [id number] Hemoglobin mass conc (Bld) 11.9 g/dL Normal 11.1-15.9 [facility] Work Phone: Comment on above: PATIENT NOT FASTINGP ERFORMED BY: PRATEEK Alcantara6370 [facility] [id number] Immature granulocytes #/vol (Bld) 0.0 {x10E3/uL} Normal 0.0-0.1 [facility] Work Phone: Comment on above: PATIENT NOT FASTINGP ERFORMED BY: PRATEEK LabKimo GirardRocqrm8767 [facility] [id number] Immature granulocytes/100 WBC (Bld) 0 % Normal [facility] Work Phone: Comment on above: PATIENT NOT FASTINGP ERFORMED BY: PRATEEK Girardlin6370 [facility] [id number] Lymphocytes #/vol (Bld) 2.8 {x10E3/uL} Normal 0.7-3.1 [facility] Work Phone: Comment on above: PATIENT NOT FASTINGP ERFORMED BY: PRATEEK LabKimo GirardBbzeru7699 [facility] [id number] Lymphocytes Auto #/vol (Bld) 2.8 {x10E3/uL} Normal 0.7-3.1 [facility] Work Phone: Lymphocytes/100 WBC (Bld) 37 % Normal [facility] Work Phone: Comment on above: PATIENT NOT FASTINGP ERFORMED BY: PRATEEK LabKimo GirardBjndlo2020 [facility] [id number] Lymphocytes/100 WBC Auto (Bld) 37 % Normal [facility] Work Phone: MCH Auto Entitic mass (RBC) 24.6 pg Abnormal 26.6-33.0 [facility] Work Phone: MCH Entitic mass (RBC) 24.6 pg Abnormal 26.6-33.0 [facility] Work Phone: Comment on above: PATIENT NOT FASTINGP ERFORMED BY: PRATEEK Girardlin6370 [facility] [id number] MCHC Auto mass conc (RBC) 32.1 g/dL Normal 31.5-35.7 [facility] Work Phone: MCHC mass conc (RBC) 32.1 g/dL Normal 31.5-35.7 [facility] Internal [facility] Work Phone: Comment on above: PATIENT NOT FASTINGP ERFORMED BY: PRATEEK LabKimo GirardQheijj9681 [facility] [id number] MCV Auto Entitic volume (RBC) 77 fL Abnormal 79-97 [facility] Work Phone: MCV Entitic volume (RBC) 77 fL Abnormal 79-97 [facility] Work Phone: Comment on above: PATIENT NOT FASTINGP ERFORMED BY: PRATEEK LabKimo GirardBgtbdn4573 [facility] [id number] Monocytes #/vol (Bld) 0.4 {x10E3/uL} Normal 0.1-0.9 [facility] Work Phone: Comment on above: PATIENT NOT FASTINGP ERFORMED BY: PRATEEK [facility] Vyveus1270 [facility] [id number] Monocytes Auto #/vol (Bld) 0.4 {x10E3/uL} Normal 0.1-0.9 [facility] Work Phone: Monocytes/100 WBC (Bld) 6 % Normal [facility] Work Phone: Comment on above: PATIENT NOT FASTINGP ERFORMED BY: PRATEEK [facility] Tmrkuk4925 [facility] [id number] Monocytes/100 WBC Auto (Bld) 6 % Normal [facility] Work Phone: Neutrophils #/vol (Bld) 4.0 {x10E3/uL} Normal 1.4-7.0 [facility] Work Phone: Comment on above: PATIENT NOT FASTINGP ERFORMED BY: [facility] Meznrg3106 [facility] [id number] Neutrophils Auto #/vol (Bld) 4.0 {x10E3/uL} Normal 1.4-7.0 [facility] Work Phone: Neutrophils/100 WBC (Bld) 54 % Normal [facility] Work Phone: Comment on above: PATIENT NOT FASTINGP ERFORMED BY: [facility] Cfnjto4797 [facility] [id number] Neutrophils/100 WBC Auto (Bld) 54 % Normal [facility] Work Phone: Platelets #/vol (Bld) 332 {x10E3/uL} Normal 150-379 [facility] Work Phone: Comment on above: PATIENT NOT FASTINGP ERFORMED BY: [facility] Wceddb4946 [facility] [id number] Platelets Auto #/vol (Bld) 332 {x10E3/uL} Normal 150-379 [facility] Work Phone: RBC #/vol (Bld) 4.84 {x10E6/uL} Normal 3.77-5.28 [facility] Internal Medicine Work Phone: Comment on above: PATIENT NOT FASTINGP ERFORMED BY: PRATEEK LabComichael AlcantaraVbiskq1754 [facility] [id number] RBC Auto #/vol (Bld) 4.84 {x10E6/uL} Normal 3.77-5.28 [facility] Work Phone: WBC #/vol (Bld) 7.4 {x10E3/uL} Normal 3.4-10.8 [facility] Internal Medicine Work Phone: Comment on above: PATIENT NOT FASTINGP ERFORMED BY: PRATEEK [facility] Nvdypc5995 [facility] [id number] WBC Auto #/vol (Bld) 7.4 {x10E3/uL} Normal 3.4-10.8 [facility] Work Phone: CBC, PLATELETS & MANUAL DIFF ([id number])Ordered By: Systems Admin on 06-09-2017 Basophils (Bld) [#/Vol] 0.1 10*3/uL Normal 0.0-0.2 [facility]; [facility] Work Phone: Comment on above: PATIENT NOT FASTINGP ERFORMED BY: PRATEEK [facility] Ihziry0722 [facility] [id number] Eosinophils (Bld) [#/Vol] 0.1 10*3/uL Normal 0.0-0.4 [facility]; [facility] Work Phone: Comment on above: PATIENT NOT FASTINGP ERFORMED BY: CB [facility] Ldntih0262 [facility] [id number] Immature granulocytes (Bld) [#/Vol] 0.0 10*3/uL Normal 0.0-0.1 [facility]; [facility] Work Phone: Comment on above: PATIENT NOT FASTINGP ERFORMED BY: CB [facility] Sphred4335 [facility] [id number] Lymphocytes (Bld) [#/Vol] 2.8 10*3/uL Normal 0.7-3.1 [facility]; [facility] Work Phone: Comment on above: PATIENT NOT FASTINGP ERFORMED BY: PRATEEK Alcantara6370 [address] [place] [id number] Monocytes (Bld) [#/Vol] 0.4 10*3/uL Normal 0.1-0.9 [facility]; [facility] Work Phone: Comment on above: PATIENT NOT FASTINGP ERFORMED BY: PRATEEK [facility] Imizah6902 [facility] [place] [id number] Neutrophils (Bld) [#/Vol] 4.0 10*3/uL Normal 1.4-7.0 [facility]; [facility] Work Phone: Comment on above: PATIENT NOT FASTINGP ERFORMED BY: PRATEEK LabJulio Qiwetd5219 [facility] [place] [id number] Platelets (Bld) [#/Vol] 332 10*3/uL Normal 150-379 [facility]; [facility] Work Phone: Comment on above: PATIENT NOT FASTINGP ERFORMED BY: PRATEEK [facility] Vfhyhs8457 [facility] [place] [id number] RBC (Bld) [#/Vol] 4.84 10*6/uL Normal 3.77-5.28 Compr ehensive Internal Medicine; [facility] Work Phone: Comment on above: PATIENT NOT FASTINGP ERFORMED BY: [facility] Gweraj3879 [facility] [place] [id number] WBC (Bld) [#/Vol] 7.4 10*3/uL Normal 3.4-10.8 [facility]pre [facility]; [facility] Work Phone: Comment on above: PATIENT NOT FASTINGP ERFORMED BY: PRATEEK LabJulio Zgcqnq7045 [facility] [place] [id number] EBV Panel (76095)on 06-09-20 17 EBV capsid IgG IA Qn (S) >600.0 Abnormal 0.0-17.9 [facility] Work Phone: Comment on above: Negative <18.0 Equiv ocal 18.0 - 21.9 Positive >21.9 PATIENT NOT FASTINGP ERFORMED BY: [employer] Fljpgm0871 [facility] [id number] EBV capsid IgM IA Qn (S) <36.0 Normal 0.0-35.9 [facility] Work Phone: Comment on above: Negative <36.0 Equiv ocal 36.0 - 43.9 Positive >43.9 PATIENT NOT FASTINGP ERFORMED BY: [employer] Cqdipu0750 [facility] [id number] EBV early IgG Qn (S) <9.0 Normal 0.0-8.9 [facility] Internal Medicine Work Phone: Comment on above: Negative < 9.0 Equiv ocal 9.0 - 10.9 Positive >10.9 PATIENT NOT FASTINGP ERFORMED BY: [employer] [facility] Jenunu5411 [facility] [id number] EBV nuclear IgG IA Qn (S) 132.0 U/mL Abnormal 0.0-17.9 [facility] Work Phone: Comment on above: Negative <18.0 Equiv ocal 18.0 - 21.9 Positive >21.9 PATIENT NOT FASTINGP ERFORMED BY: [employer] [facility] Twdhmd3190 [facility] [id number] Service comment Interp (Unsp spec) SPRCS Normal [facility] Work Phone: Comment on above: EBV Interpretation C vivar . Interpretation EBV-IgM EA(D)-IgG VCA-IgG EBNA-IgG . EBV Seronegative - - - - Early Phase + - - - Acute Primary + +or- + - Infection Convalescence/Past - +or- + + Infection Reactivated +or- + + + Infection + Antibody Present - Antibody Absent PATIENT NOT FASTINGP ERFORMED BY: [employer] [facility] Twcpfe0818 [facility] [id number] THROAT CULTURE (87107)on Bacteria identified Respiratory culture Nom (Unsp spec) Final report Abnormal [facility] Work Phone: Comment on above: PATIENT NOT FASTINGP ERFORMED BY: PRATEEK [facility] Joznrz4062 [facility] [id number] Information: SRC:TH Bacteria identified Respiratory culture Nom (Unsp spec) BETAGC Abnormal [facility] Work Phone: Comment on above: Beta hemolytic Strep tococcus, group CLight growthPenicillin and ampicillin are drugs of choice for treatment ofbeta-hemolytic streptococcal infections. Susceptibility testing ofpenicillins and other beta-lactam agents approved by the FDA fortreatment of beta-hemolytic streptococcal infections need not beperformed routinely because nonsusceptible isolates are extremelyrare in any beta-hemolytic streptococcus and have not been reportedfor Streptococcus pyogenes (group A). (CLSI 2011) PATIENT NOT FASTINGP ERFORMED BY: [facility]6370 [facility] [id number] Information: SRC:TH Rapid Strep Test, Office (73 710)Ordered By: Sandeep Guerrero on 05-23-2017 S. pyogenes Ag EIA Ql (Throat) Negative Normal [facility]; [facility] Work Phone: S. pyogenes Ag IA Ql (Unsp spec) Negative Normal [facility] Work Phone: THROAT CULTURE (62838)on Bacteria identified Respiratory culture Nom (Unsp spec) Final report Abnormal [facility] Work Phone: Comment on above: PATIENT NOT FASTINGP ERFORMED BY: [facility]6370 [facility] [id number] Information: SRC:TH Bacteria identified Respiratory culture Nom (Unsp spec) BETAGC Abnormal [facility] Work Phone: Comment on above: Beta hemolytic Strep tococcus, group CScant growthPenicillin and ampicillin are drugs of choice for treatment ofbeta-hemolytic streptococcal infections. Susceptibility testing ofpenicillins and other beta-lactam agents approved by the FDA fortreatment of beta-hemolytic streptococcal infections need not beperformed routinely because nonsusceptible isolates are extremelyrare in any beta-hemolytic streptococcus and have not been reportedfor Streptococcus pyogenes (group A). (CLSI 2010) PATIENT NOT FASTINGP ERFORMED BY: CB [facility] Dntdjo8232 [employer] [place] [id number] Information: SRC: URINE R[place]ULT[place]-IDENTIF[place] (31988)on 05-23-2017 Bacteria identified Cx Nom (U) Final report Normal [facility] Work Phone: Comment on above: PATIENT NOT FASTINGP ERFORMED BY: CB [facility] Uhobkx7007 [facility] [id number] Information: SRC: Bacteria identified Cx Nom (U) MUG Normal [facility] Work Phone: Comment on above: Mixed urogenital riley ra25,000-50,000 colony forming units per mL PATIENT NOT FASTINGP ERFORMED BY: [place] LabenGenerp Jrifld4198 [facility] [id number] Information: SRC: Urinalysis, Office (99280)Or dered By: Maritza Mcneill on 05-23-2017 Bilirubin Ql (U) Negative Normal Comprehe nsive Internal Medicine Work Phone: Glucose Test strip mass conc (U) Negative Normal [facility] Work Phone: Hemoglobin Ql (U) Hemolyzed Small Normal Co mprehensive [facility] Work Phone: Hemoglobin Test strip Ql (U) Hemolyzed Small Normal [facility] Work Phone: Ketones Ql (U) Negative Normal Comprehens socar Internal Medicine Work Phone: Leukocyte esterase Test strip Ql (U) Large Normal [facility] Work Phone: Nitrite Ql (U) Negative Normal Comprehens oscar [facility] Work Phone: Nitrite Test strip Ql (U) Negative Normal [facility] Work Phone: pH (U) 5 [pH] Abnormal [facility] Work Phone: pH Test strip (U) 5 [pH] Abnormal Compreh ensive Internal Medicine Work Phone: Protein Ql (U) Negative Normal Comprehens oscar [facility] Work Phone: Protein Test strip Ql (U) Negative Normal [facility] Work Phone: Specific gravity Relative Density (U) 1.025 1 Normal Comprehensi ve Internal Medicine Work Phone: Urobilinogen mass/time (24H U) 2 mg/dL Normal [facility] Work Phone: Urinalysis, Office (17742)on 05-23-2017 Bilirubin Ql (U) Negative Normal Comprehe nsive Internal Medicine; [facility] Work Phone: Glucose Test strip (U) [Mass/Vol] Negative Normal [facility]; [facility] Work Phone: Ketones Ql (U) Negative Normal Comprehens oscar [facility]; [facility] Work Phone: Nitrite Ql (U) Negative Normal Comprehens oscar [facility]; [facility] Work Phone: Protein Ql (U) Negative Normal Comprehens oscar [facility]; [facility] Work Phone: ASPIRATION (SLIDES ONLY)on 0 11-26-2016 ASPIRATION (SLIDES ONLY) See Note Normal [facility] Work Phone: Comment on above: Patient: Anastacio STARKS : 1970 (46/F) Acct Num: [id number] Phys: Henry Funez MD Unit Num: [id number] Loc: LABSPEC Specimen: [id number] Received: 11/26/16 - 1609 Spec Type: ASPIRATION TISSUES TISSUES: COMMENT Correlation with clinical, radiologic findings and appropriate follow up are necessary. CYTOLOGY GROSS A - Received are 12 smears labeled with the patient's name and designated per the requisition as "FNA right thyroid." Submitted for staining. B - Received are 12 smears labeled with the patient's name and designated per the requisition as "FNA left thyroid." Submitted for staining. 11/29/16 TC:3 CPT: 06487 x2 CYTOLOGY STUDY Slides are reviewed. A AND B. The specimens are adequate for evaluation. The specimens consist of numerous polymorphous population of lymphocytes and benign follicular cells. Colloid is not seen. DIAGNOSIS CYTOLOGY A. Right thyroid nodule, ultrasound-guided FNA (smears): Consistent with chronic lymphocytic thyroiditis. See cytology study and comment. B. Left thyroid nodule, ultrasound-guided FNA (smears): Consistent with chronic lymphocytic thyroiditis. See cytology study and comment. SJ:braydon 11/30/16 HEADER OPERATION: Ultrasound-guided fine needle aspiration bilateral thyroid PRE-OP DIAGNOSIS: Bilateral thyroid nodules TISSUE SUBMITTED: A - FNA right thyroid, B - FNA left thyroid Signed Freeman Dunn 11/30/16 [facility] Anuuzgudqf1950 [facility]. [place], [place], [address] HPV automatic (38268)on 10-13 HPV 16+18+31+33+35+39+45+ 51+52+56+58+59+68 DNA Probe+sig amp Ql (Cvx) Negative Normal [facility] Work Phone: Comment on above: This high-risk HPV t est detects thirteen high-risk types(16/18/31/33/35/39/45/51/52/56/58/59/68) without differentiation. . Source.............C ervix;EndocervixLMP / Prev Treat...TTM=862139Zo. of containers..01 CYTYC Thin Prep VialPATIENT NOT FASTINGPERFORMED BY: [facility] [place] [address] [id number] BY: =G [employer] [id number] Information: [id number] Microscopic observation Other stain Nom (Unsp spec) . Normal Comprehens oscar [facility] Work Phone: Comment on above: Source.............C ervix;EndocervixLMP / Prev Treat...PXQ=024175Kr. of containers..01 CYTYC Thin Prep VialPATIENT NOT FASTINGPERFORMED BY: [facility] [place] [id number] BY: =G [facility] Wendi [address] [place] [id number] Information: [id number] Pathology report final diagnosis Narrative [facility] [[email or web address]] Normal [facility] Internal Medicine Work Phone: Comment on above: UNSATISFACTORY FOR E VALUATION.Suggest follow up as clinically appropriate.Specimen processed and examined but unsatisfactory for evaluation ofepithelial abnormality because of insufficient cellularity.Z11.51Scott Nicky Cherry, [employer] (ASCP)Reta Kolb, Supervisory [employer] (ASCP) Source.............C ervix;EndocervixLMP / Prev Treat...DYP=145502Ml. of containers..01 CYTYC Thin Prep VialPATIENT NOT FASTINGPERFORMED BY: [facility] Crjosdatvs839 [address] [place] [id number] BY: =G [facility] Uhfwcbpmrm605 [address] [facility]daInterm[facility] [id number] Information: [id number] HPV automatic (81413) PAPR Normal [facility] Internal Medicine Work Phone: Comment on above: The Pap smear is a s creening test designed to aid in the detection ofpremalignant and malignant conditions of the uterine cervix. It is not adiagnostic procedure and should not be used as the sole means of detectingcervical cancer. Both false-positive and false-negative reports do occur. . Source.............C ervix;EndocervixLMP / Prev Treat...MKB=162857Uk. of containers..01 CYTYC Thin Prep VialPATIENT NOT FASTINGPERFORMED BY: [facility] Pjcumqoyhl114 [address] LyndaIntermountain [facility] Center [id number] BY: =G [facility] Bdjgkblwse305 [address] LyndaIntermountain [facility] Center [id number] Information: [id number] HPV automatic (06608)Ordered By: Systems Admin on 11-09-2016 HPV 16+18+31+33+35+39+45+ 51+52+56+58+59+68 DNA Probe+sig amp Ql (Cvx) Negative Normal [facility]; [facility] Work Phone: Comment on above: This high-risk HPV t est detects thirteen high-risk types(16/18/31/33/35/39/45/51/52/56/58/59/68) without differentiation. . Source.............C ervix;EndocervixLMP / Prev Treat...XGH=149075Qy. of containers..01 CYTYC Thin Prep VialPATIENT NOT FASTINGPERFORMED BY: WB LabCoVocent120 [facility] [id number] BY: =G [facility] Qwivznyzlo503 [facility] [id number] Information: [id number] URINE [place] (31920)on 11-09-2016 Bacteria identified Cx Nom (U) Escherichia coli Abnormal [facility] Work Phone: Comment on above: Greater than 100,000 colony forming units per mL PATIENT NOT FASTINGP ERFORMED BY: LabenGenerp Edavoa3070 [facility] [id number] Information: SRC:UC Bacteria identified Cx Nom (U) Final report Abnormal [facility] Work Phone: Comment on above: PATIENT NOT FASTINGP ERFORMED BY: [facility] Fxkuqg5787 [facility] [id number] Information: SRC:UC Other Antibiotic [facility] Prot-On [facility] prehensive Internal Medicine Work Phone: Comment on above: S = Susceptible; I = Intermediate; R = Resistant P = Positive; N = Negative MICS are expressed in micrograms per mL Antibiotic RSLT#1 RSLT#2 RSLT#3 RSLT#4Amoxicillin/Clavulanic Acid SAmpicillin RCefepime SCeftriaxone SCefuroxime SCephalothin SCiprofloxacin SErtapenem SGentamicin SImipenem SLevofloxacin SNitrofurantoin SPiperacillin RTetracycline RTobramycin STrimethoprim/Sulfa S PATIENT NOT FASTINGP ERFORMED BY: PRATEEK [facility] Mairie4538 [place] [id number] Information: SRC:MARY CARMEN Urinalysis, Office (38548)Or dered By: Morenita Benton on 11-09-2016 Bilirubin Ql (U) Negative Normal Comprehe nsive [facility] Medicine Work Phone: Bilirubin Ql (U) Negative Normal Comprehe nsive Internal Medicine; [facility] Work Phone: Glucose Test strip (U) [Mass/Vol] Negative Normal [facility]; [facility] Work Phone: Glucose Test strip mass conc (U) Negative Normal [facility] Work Phone: Hemoglobin Ql (U) Non Hemolyzed Trace Normal [facility] Work Phone: Hemoglobin Test strip Ql (U) Non Hemolyzed Trace Normal Comprehensiv e Internal Medicine Work Phone: Ketones Ql (U) Negative Normal Comprehens oscar [facility] Work Phone: Ketones Ql (U) Negative Normal Comprehens oscar [facility]; [facility] Work Phone: Leukocyte esterase Test strip Ql (U) Negative Normal [facility] Work Phone: Leukocyte esterase Test strip Ql (U) Negative Normal [facility]; [facility] Work Phone: Nitrite Ql (U) Negative Normal Comprehens oscar [facility] Work Phone: Nitrite Ql (U) Negative Normal Comprehens oscar [facility]; [facility] Work Phone: Nitrite Test strip Ql (U) Negative Normal [facility] Work Phone: pH (U) 6.0 [pH] Normal [facility] Work Phone: pH Test strip (U) 6.0 [pH] Normal Compreh ensive [facility] Medicine Work Phone: Protein Ql (U) Negative Normal Comprehens oscar [facility] Work Phone: Protein Ql (U) Negative Normal Comprehens oscar [facility]; [facility] Work Phone: Protein Test strip Ql (U) Negative Normal [facility] Work Phone: Specific gravity Relative Density (U) 1.025 1 Normal Comprehensi ve Internal Medicine Work Phone: Urobilinogen mass/time (24H U) Normal Normal [facility] Work Phone: SLPCC-AQJNYAPEXVA-OUMYY (821 05)on 10-20-2016 AFP.tumor marker mass conc 2.4 ng/mL Normal 0.0-8.3 [facility] Work Phone: Comment on above: Mahendra ECLIA methodol ogy PATIENT NOT FASTINGP ERFORMED BY: amiandoUNC Health Johnston [id number] CBC W/AUTO DIFF WBC (10865)o n 10-20-2016 Basophils #/vol (Bld) 0.0 {x10E3/uL} Normal 0.0-0.2 [facility] Work Phone: Comment on above: PATIENT NOT FASTINGP ERFORMED BY: amiandoUNC Health Johnston [id number] Basophils Auto #/vol (Bld) 0.0 {x10E3/uL} Normal 0.0-0.2 [facility] Work Phone: Basophils/100 WBC (Bld) 0 % Normal [facility] Work Phone: Comment on above: PATIENT NOT FASTINGP ERFORMED BY: GuestMetricslin6370 Guru TechnologiesUNC Health Johnston [id number] Basophils/100 WBC Auto (Bld) 0 % Normal [facility] Work Phone: Eosinophils #/vol (Bld) 0.1 {x10E3/uL} Normal 0.0-0.4 [facility] Work Phone: Comment on above: PATIENT NOT FASTINGP ERFORMED BY: amiandoDublin [place] [id number] Eosinophils Auto #/vol (Bld) 0.1 {x10E3/uL} Normal 0.0-0.4 [facility] Work Phone: Eosinophils/100 WBC (Bld) 2 % Normal [facility] Work Phone: Comment on above: PATIENT NOT FASTINGP ERFORMED BY: PRATEEK [place] [id number] [facility] [id number] Eosinophils/100 WBC Auto (Bld) 2 % Normal [facility] Work Phone: Erythrocyte distribution width Auto Ratio (RBC) 15.5 % Abnormal 12.3-15.4 [facility] Work Phone: Erythrocyte distribution width Ratio (RBC) 15.5 % Abnormal 12.3-15.4 [facility] Work Phone: Comment on above: PATIENT NOT FASTINGP ERFORMED BY: [place] [id number] [facility] [id number] Hematocrit Auto Volume Fraction (Bld) 36.6 % Normal 34.0-46.6 [facility] Internal Medicine Work Phone: Hematocrit Volume Fraction (Bld) 36.6 % Normal 34.0-46.6 [facility] Work Phone: Comment on above: PATIENT NOT FASTINGP ERFORMED BY: PRATEEK [facility]6370 [facility] [id number] Hemoglobin mass conc (Bld) 11.1 g/dL Normal 11.1-15.9 [facility] Work Phone: Comment on above: PATIENT NOT FASTINGP ERFORMED BY: LabTaylor Ville [id number] [facility] [id number] Immature granulocytes #/vol (Bld) 0.0 {x10E3/uL} Normal 0.0-0.1 [facility] Work Phone: Comment on above: PATIENT NOT FASTINGP ERFORMED BY: LabAscension [facility] Hospital6370 [facility] [id number] Immature granulocytes/100 WBC (Bld) 0 % Normal [facility] Work Phone: Comment on above: PATIENT NOT FASTINGP ERFORMED BY: PRATEEK ElvaTaylor [place] 8654870 [facility] [id number] Lymphocytes #/vol (Bld) 3.3 {x10E3/uL} Abnormal 0.7-3.1 [facility] Work Phone: Comment on above: PATIENT NOT FASTINGP ERFORMED BY: PRATEEK [place] [id number] [facility] [id number] Lymphocytes Auto #/vol (Bld) 3.3 {x10E3/uL} Abnormal 0.7-3.1 [facility] Work Phone: Lymphocytes/100 WBC (Bld) 36 % Normal [facility] Work Phone: Comment on above: PATIENT NOT FASTINGP ERFORMED BY: PRATEEK [place] [id number] [facility] [id number] Lymphocytes/100 WBC Auto (Bld) 36 % Normal [facility] Work Phone: MCH Auto Entitic mass (RBC) 23.9 pg Abnormal 26.6-33.0 [facility] Work Phone: MCH Entitic mass (RBC) 23.9 pg Abnormal 26.6-33.0 [facility] Work Phone: Comment on above: PATIENT NOT FASTINGP ERFORMED BY: PRATEEK [place] [id number] [facility] [id number] MCHC Auto mass conc (RBC) 30.3 g/dL Abnormal 31.5-35.7 [facility] Work Phone: MCHC mass conc (RBC) 30.3 g/dL Abnormal 31.5-35.7 Comp [facility] Internal Medicine Work Phone: Comment on above: PATIENT NOT FASTINGP ERFORMED BY: PRATEEK [place] [id number] [facility] [id number] MCV Auto Entitic volume (RBC) 79 fL Normal 79-97 [facility] Work Phone: MCV Entitic volume (RBC) 79 fL Normal 79-97 [facility] Work Phone: Comment on above: PATIENT NOT FASTINGP ERFORMED BY: PRATEEK Herminio Alcantara6370 [facility] [id number] Monocytes #/vol (Bld) 0.6 {x10E3/uL} Normal 0.1-0.9 [facility] Work Phone: Comment on above: PATIENT NOT FASTINGP ERFORMED BY: PRATEEK [facility]Co Sdscvm3340 [facility] [id number] Monocytes Auto #/vol (Bld) 0.6 {x10E3/uL} Normal 0.1-0.9 [facility] Work Phone: Monocytes/100 WBC (Bld) 7 % Normal [facility] Work Phone: Comment on above: PATIENT NOT FASTINGP ERFORMED BY: PRATEEK Girardlin6370 [facility] [id number] Monocytes/100 WBC Auto (Bld) 7 % Normal [facility] Work Phone: Neutrophils #/vol (Bld) 4.9 {x10E3/uL} Normal 1.4-7.0 [facility] Work Phone: Comment on above: PATIENT NOT FASTINGP ERFORMED BY: PRATEEK LabKimo GirardPbepgw6437 [facility] [id number] Neutrophils Auto #/vol (Bld) 4.9 {x10E3/uL} Normal 1.4-7.0 [facility] Work Phone: Neutrophils/100 WBC (Bld) 55 % Normal [facility] Work Phone: Comment on above: PATIENT NOT FASTINGP ERFORMED BY: PRATEEK [facility]Co Ffvlby1929 [facility] [id number] Neutrophils/100 WBC Auto (Bld) 55 % Normal [facility] Work Phone: Platelets #/vol (Bld) 337 {x10E3/uL} Normal 150-379 [facility] Work Phone: Comment on above: PATIENT NOT FASTINGP ERFORMED BY: [facility]Co Shyjhm0222 [facility] [id number] Platelets Auto #/vol (Bld) 337 {x10E3/uL} Normal 150-379 [facility] Work Phone: RBC #/vol (Bld) 4.64 {x10E6/uL} Normal 3.77-5.28 [facility] Internal Medicine Work Phone: Comment on above: PATIENT NOT FASTINGP ERFORMED BY: LabCoAtlantiCare Regional Medical Center, Mainland CampusKdjhej9711 [facility] [place] [facility] [id number] RBC Auto #/vol (Bld) 4.64 {x10E6/uL} Normal 3.77-5.28 [facility] Work Phone: WBC #/vol (Bld) 9.0 {x10E3/uL} Normal 3.4-10.8 [facility] Internal Medicine Work Phone: Comment on above: PATIENT NOT FASTINGP ERFORMED BY: LabAscension Providence Hospital6370 [facility] [id number] WBC Auto #/vol (Bld) 9.0 {x10E3/uL} Normal 3.4-10.8 [facility] Work Phone: CBC W/AUTO DIFF WBC (07223)O rdered By: Systems Admin on 10-20-2016 Basophils (Bld) [#/Vol] 0.0 10*3/uL Normal 0.0-0.2 [facility]; [facility] Work Phone: Comment on above: PATIENT NOT FASTINGP ERFORMED BY: LabCo Rldmny0169 [facility] [id number] Eosinophils (Bld) [#/Vol] 0.1 10*3/uL Normal 0.0-0.4 [facility]; [facility] Work Phone: Comment on above: PATIENT NOT FASTINGP ERFORMED BY: LabCo Hukjsp0204 [facility] [id number] Immature granulocytes (Bld) [#/Vol] 0.0 10*3/uL Normal 0.0-0.1 [facility]; [facility] Work Phone: Comment on above: PATIENT NOT FASTINGP ERFORMED BY: PRATEEK Alcantara6370 [place] [id number] Lymphocytes (Bld) [#/Vol] 3.3 10*3/uL Abnormal 0.7-3.1 [facility]; [facility] Work Phone: Comment on above: PATIENT NOT FASTINGP ERFORMED BY: PRATEEK LabComichael AlcantaraNugsma2435 [facility] [place] [id number] Monocytes (Bld) [#/Vol] 0.6 10*3/uL Normal 0.1-0.9 [facility]; [facility] Work Phone: Comment on above: PATIENT NOT FASTINGP ERFORMED BY: PRATEEK LabKimo GirardIpsyca6251 [facility] [place] [id number] Neutrophils (Bld) [#/Vol] 4.9 10*3/uL Normal 1.4-7.0 [facility]; [facility] Work Phone: Comment on above: PATIENT NOT FASTINGP ERFORMED BY: PRATEEK LabKimo Alcantara6370 [facility] [place] [id number] Platelets (Bld) [#/Vol] 337 10*3/uL Normal 150-379 [facility]; [facility] Work Phone: Comment on above: PATIENT NOT FASTINGP ERFORMED BY: CB [facility] Zujhdn1692 [facility] [place] [id number] RBC (Bld) [#/Vol] 4.64 10*6/uL Normal 3.77-5.28 [facility] Internal [facility]; [facility] Work Phone: Comment on above: PATIENT NOT FASTINGP ERFORMED BY: PRATEEK [facility] Ezeiqt9318 [facility] Hospitalbl[facility] [place] [id number] WBC (Bld) [#/Vol] 9.0 10*3/uL Normal 3.4-10.8 [facility]pre [facility]; [facility] Work Phone: Comment on above: PATIENT NOT FASTINGP ERFORMED BY: PRATEEK [facility] Leedvw0803 Henry RoadDublin [place] [id number] Ferritin (20426)on 7 Ferritin mass conc 10 ng/mL Abnormal 15-150 Compre hensive Internal Medicine Work Phone: Comment on above: PATIENT NOT FASTINGP ERFORMED BY: CB [facility] Cbiutm6503 Henry RoadDublin [place] [id number] Iron Binding Capacity (TIBC) (67727)on 10-20-2016 Iron binding capacity mass conc 477 ug/dL Abnormal 250-450 [facility] Work Phone: Comment on above: PATIENT NOT FASTINGP ERFORMED BY: CB [facility] Pbvscr2674 Henry RoadDublin [place] [id number] Iron binding capacity.unsaturated mass conc 432 ug/dL Abnormal 131-425 Comprehensive Internal Medicine Work Phone: Comment on above: PATIENT NOT FASTINGP ERFORMED BY: CB [facility] Ndvcru7269 Henry RoadDublin [place] [id number] Iron mass conc 45 ug/dL Normal 27-159 Comprehens oscar Internal Medicine Work Phone: Comment on above: PATIENT NOT FASTINGP ERFORMED BY: PRATEEK [facility] Fdpqee3334 Henry RoadDublin [place] [id number] Iron saturation mass fraction 9 % Abnormal 15-55 [facility] Work Phone: Comment on above: PATIENT NOT FASTINGP ERFORMED BY: CB [facility] Mopbyz0627 [address] RoadDublin [place] [id number] METABOLIC PANEL, COMPREHENSI VE (58213)on 10-20-2016 Albumin mass conc 4.4 g/dL Normal 3.5-5.5 Compreh ensive Internal Medicine Work Phone: Comment on above: PATIENT NOT FASTINGP ERFORMED BY: CB [facility] Fxtlli5995 [address] RoadDublin [place] [id number] Albumin/Globulin mass ratio 1.4 {ratio} Normal 1.2-2.2 [facility] Work Phone: Comment on above: PATIENT NOT FASTINGP ERFORMED BY: CB [facility] Gdgpjv5841 [address] RoadDublin [place] [id number] ALP enzyme act/vol 63 [iU]/L Normal 39-117 Compre [facility] Internal Medicine Work Phone: Comment on above: PATIENT NOT FASTINGP ERFORMED BY: CB [facility] Qkgroy7841 [address] RoadDublin [place] [id number] ALT enzyme act/vol 16 [iU]/L Normal 0-32 Compre [facility] Internal Medicine Work Phone: Comment on above: PATIENT NOT FASTINGP ERFORMED BY: CB [facility] Udqliq7219 [address] RoadDublin [place] [id number] AST enzyme act/vol 18 [iU]/L Normal 0-40 [facility] Internal Medicine Work Phone: Comment on above: PATIENT NOT FASTINGP ERFORMED BY: CB [facility] Mssyyg3336 [address] RoadDublin [place] [id number] Bilirubin mass conc 0.3 mg/dL Normal 0.0-1.2 Compr ensive Internal Medicine Work Phone: Comment on above: PATIENT NOT FASTINGP ERFORMED BY: PRATEEK [facility] Ciytjj0070 [address] RoadDublin [place] [id number] Calcium mass conc 9.1 mg/dL Normal 8.7-10.2 Compreh [facility] Internal Medicine Work Phone: Comment on above: PATIENT NOT FASTINGP ERFORMED BY: CB [facility] Kgyjuj1494 [address] RoadDublin [place] [id number] Chloride molar conc 99 mmol/L Normal 96-106 Compr ensive Internal Medicine Work Phone: Comment on above: PATIENT NOT FASTINGP ERFORMED BY: CB [facility] Pujnqa0292 Henry RoadDublin [place] [id number] CO2 molar conc 18 mmol/L Normal 18-29 Comprehens oscar Internal Medicine Work Phone: Comment on above: PATIENT NOT FASTINGP ERFORMED BY: CB [facility] Thwxpc9232 [address] RoadDublin [place] [id number] Creatinine mass conc 0.72 mg/dL Normal 0.57-1.00 Comp rehensive Internal Medicine Work Phone: Comment on above: PATIENT NOT FASTINGP ERFORMED BY: PRATEEK [facility] Cljusq2716 [facility] [id number] GFR/1.73 sq M predicted among blacks CKD-EPI vol rate/area (S/P/Bld) 117 mL/min/1.73 Normal Comprehensiv e Internal Medicine Work Phone: Comment on above: PATIENT NOT FASTINGP ERFORMED BY: CB [facility] Bxtttl7278 [facility] [place] [id number] GFR/1.73 sq M predicted among non-blacks CKD-EPI vol rate/area (S/P/Bld) 101 mL/min/1.73 Normal [facility] Work Phone: Comment on above: PATIENT NOT FASTINGP ERFORMED BY: PRATEEK [facility] Hrywda5325 [facility] [id number] Globulin Calculated mass conc (S) 3.1 g/dL Normal 1.5-4.5 [facility] Work Phone: Globulin mass conc (S) 3.1 g/dL Normal 1.5-4.5 [facility] Work Phone: Comment on above: PATIENT NOT FASTINGP ERFORMED BY: PRATEEK [facility] Zpvobz2581 [facility] [id number] Glucose mass conc 79 mg/dL Normal 65-99 Compreh ensive Internal Medicine Work Phone: Comment on above: PATIENT NOT FASTINGP ERFORMED BY: CB [facility] Ynpait0108 [facility] [place] [id number] Potassium molar conc 4.2 mmol/L Normal 3.5-5.2 Comp rehensive Internal Medicine Work Phone: Comment on above: PATIENT NOT FASTINGP ERFORMED BY: CB [facility] Hdzdcs4920 [facility] [id number] Protein mass conc 7.5 g/dL Normal 6.0-8.5 Compreh ensive Internal Medicine Work Phone: Comment on above: PATIENT NOT FASTINGP ERFORMED BY: PRATEEK [facility] Mniltr4313 [address] RoadDublin [place] [id number] Sodium molar conc 139 mmol/L Normal 134-144 Compreh ensive Internal Medicine Work Phone: Comment on above: PATIENT NOT FASTINGP ERFORMED BY: PRATEEK [facility] Oqmtxo4293 Henry RoadDuin [place] [id number] Urea nitrogen mass conc 15 mg/dL Normal 6-24 [facility] Work Phone: Comment on above: PATIENT NOT FASTINGP ERFORMED BY: CB [facility] Fazrhg2658 [address] RoadDublin [place] [id number] Urea nitrogen/Creatinine mass ratio 21 mg/mg Normal 9-23 [facility] Work Phone: Comment on above: PATIENT NOT FASTINGP ERFORMED BY: PRATEEK [facility] Thadew0628 [facility] [place] [id number] METABOLIC PANEL, COMPREHENSI VE (09713)Ordered By: Systems Admin on 10-20-2016 ALP [Catalytic activity/Vol] 63 U/L Normal 39-117 [facility]; [facility] Work Phone: Comment on above: PATIENT NOT FASTINGP ERFORMED BY: PRATEEK [facility] Obatlq1479 [address] [facility]blin [place] [id number] ALT [Catalytic activity/Vol] 16 U/L Normal 0-32 [facility]; [facility] Work Phone: Comment on above: PATIENT NOT FASTINGP ERFORMED BY: CB [facility] Poqewb4984 Henry Roadblin [place] [id number] AST [Catalytic activity/Vol] 18 U/L Normal 0-40 [facility]; [facility] Work Phone: Comment on above: PATIENT NOT FASTINGP ERFORMED BY: PRATEEK [facility] Jwnutj6131 [address] Roadblin [place] [id number] T3, FREE (TRIDOTHYRONINE) (6 1674)on 10-20-2016 T3 free mass conc 2.9 pg/mL Normal 2.0-4.4 Compreh ensive Internal Medicine Work Phone: Comment on above: PATIENT NOT FASTINGP ERFORMED BY: PRATEEK [facility] Yjbayp6159 [address] RoadDublin [place] [id number] T4, FREE (THYROXINE) (47048) on 10-20-2016 T4 free mass conc 1.11 ng/dL Normal 0.82-1.77 Compreh [facility] Work Phone: Comment on above: PATIENT NOT FASTINGP ERFORMED BY: CB [facility] Apjmju4304 [address] RoadDublin [place] [id number] Vitamin B-12 (cyanocobalamin ) (28404)on 10-20-2016 Cobalamin (Vitamin B12) mass conc 264 pg/mL Normal 211-946 [facility] Work Phone: Comment on above: PATIENT NOT FASTINGP ERFORMED BY: CB [facility] Kzpfly7048 [address] RoadDublin [place] [id number] Vitamin D Hydroxy (10615)on 10-20-2016 25-Hydroxyvitamin D2+25-Hydroxyvitamin D3 mass conc 22.0 ng/mL Abnormal 30.0-100.0 [facility] Work Phone: Comment on above: Vitamin D deficiency has been defined by the [place] of[facility] Hospitalcine and an Endocrine Society practice guideline as alevel of serum 25-OH vitamin D less than 20 ng/mL (1,2).The Endocrine Society went on to further define vitamin Dinsufficiency as a level between 21 and 29 ng/mL (2).1. IOM ([place] of Medicine). 2010. Dietary reference intakes for calcium and D. [place]: The National Academies Press.2. Monica MF, Lisa TORRES, Aye JAMIL, et al. Evaluation, treatment, and prevention of vitamin D deficiency: an Endocrine Society clinical practice guideline. JCEM. 2010; 96(7):1911-30. PATIENT NOT FASTINGP ERFORMED BY: CB [facility] Xkjgev1062 Henry RoadDublin [place] [id number] CALCIFEDIOL (88029)on 2015 25-Hydroxyvitamin D2+25-Hydroxyvitamin D3 mass conc 30.3 ng/mL Normal 30.0-100.0 [facility] Work Phone: Comment on above: Vitamin D deficiency has been defined by the [place] ofMedicine and an Endocrine Society practice guideline as alevel of serum 25-OH vitamin D less than 20 ng/mL (1,2).The Endocrine Society went on to further define vitamin Dinsufficiency as a level between 21 and 29 ng/mL (2).1. IOM ([place] of Medicine). 2010. Dietary reference intakes for calcium and D. [place]: The National Academies Press.2. Monica MF, Lisa TORRES, Aye JAMIL, et al. Evaluation, treatment, and prevention of vitamin D deficiency: an Endocrine Society clinical practice guideline. JCEM. 2010; 96(7):1911-30. PATIENT NOT FASTINGP ERFORMED BY: [facility] Gdpyic1399 Henryorgangir.amUNC Health Johnston [id number] TSH (THYROID STIMULATING HOR STACIE) (74875)on 12-08-2015 Thyrotropin Qn 1.930 {uIU/mL} Normal 0.450-4.50 0 [facility] Work Phone: Comment on above: PATIENT NOT FASTINGP ERFORMED BY: [facility] Imyjyl9428 [facility] [id number] Information: [id number] CBC with auto diff (75065)on 07-26-2014 Basophils #/vol (Bld) 0.0 {x10E3/uL} Normal 0.0-0.2 [facility] Work Phone: Comment on above: PATIENT WAS FASTINGP ERFORMED BY: [facility] Mfvydb4418 [facility] [id number] Information: [id number] Basophils Auto #/vol (Bld) 0.0 {x10E3/uL} Normal 0.0-0.2 [facility] Work Phone: Basophils/100 WBC (Bld) 0 % Normal [facility] Work Phone: Comment on above: PATIENT WAS FASTINGP ERFORMED BY: [facility] Lesugx0708 Henry freshbagUNC Health Johnston [id number] Information: [id number] Basophils/100 WBC Auto (Bld) 0 % Normal [facility] Work Phone: Eosinophils #/vol (Bld) 0.2 {x10E3/uL} Normal 0.0-0.4 [facility] Work Phone: Comment on above: PATIENT WAS FASTINGP ERFORMED BY: [address] [id number] Information: [id number] Eosinophils Auto #/vol (Bld) 0.2 {x10E3/uL} Normal 0.0-0.4 [facility] Work Phone: Eosinophils/100 WBC (Bld) 2 % Normal [facility] Work Phone: Comment on above: PATIENT WAS FASTINGP ERFORMED BY: [address] [id number] Information: [id number] Eosinophils/100 WBC Auto (Bld) 2 % Normal [facility] Work Phone: Erythrocyte distribution width Auto Ratio (RBC) 16.5 % Abnormal 12.3-15.4 [facility] Work Phone: Erythrocyte distribution width Ratio (RBC) 16.5 % Abnormal 12.3-15.4 [facility] Work Phone: Comment on above: PATIENT WAS FASTINGP ERFORMED BY: [address] [id number] Information: [id number] Hematocrit Auto Volume Fraction (Bld) 37.1 % Normal 34.0-46.6 [facility] Internal Medicine Work Phone: Hematocrit Volume Fraction (Bld) 37.1 % Normal 34.0-46.6 [facility] Work Phone: Comment on above: PATIENT WAS FASTINGP ERFORMED BY: [place] [id number] [facility] [id number] Information: [id number],[id number] Hemoglobin mass conc (Bld) 11.5 g/dL Normal 11.1-15.9 [facility] Work Phone: Comment on above: PATIENT WAS FASTINGP ERFORMED BY: [address] [id number] Information: [id number] Immature granulocytes #/vol (Bld) 0.0 {x10E3/uL} Normal 0.0-0.1 [facility] Work Phone: Comment on above: PATIENT WAS FASTINGP ERFORMED BY: [address] [id number] Information: 112894,[id number] Immature granulocytes/100 WBC (Bld) 0 % Normal [facility] Work Phone: Comment on above: PATIENT WAS FASTINGP ERFORMED BY: [address] [id number] Information: [id number] Lymphocytes #/vol (Bld) 2.6 {x10E3/uL} Normal 0.7-3.1 [facility] Work Phone: Comment on above: PATIENT WAS FASTINGP ERFORMED BY: [address] [id number] Information: [id number] Lymphocytes Auto #/vol (Bld) 2.6 {x10E3/uL} Normal 0.7-3.1 [facility] Work Phone: Lymphocytes/100 WBC (Bld) 35 % Normal [facility] Work Phone: Comment on above: PATIENT WAS FASTINGP ERFORMED BY: [address] [id number] Information: [id number] Lymphocytes/100 WBC Auto (Bld) 35 % Normal [facility] Work Phone: MCH Auto Entitic mass (RBC) 23.8 pg Abnormal 26.6-33.0 [facility] Work Phone: MCH Entitic mass (RBC) 23.8 pg Abnormal 26.6-33.0 [facility] Work Phone: Comment on above: PATIENT WAS FASTINGP ERFORMED BY: PRATEEK [address] [id number] Information: 750783,[id number] MCHC Auto mass conc (RBC) 31.0 g/dL Abnormal 31.5-35.7 [facility] Work Phone: MCHC mass conc (RBC) 31.0 g/dL Abnormal 31.5-35.7 Comp rehensive Internal Medicine Work Phone: Comment on above: PATIENT WAS FASTINGP ERFORMED BY: [address] [id number] Information: [id number] MCV Auto Entitic volume (RBC) 77 fL Abnormal 79-97 [facility] Work Phone: MCV Entitic volume (RBC) 77 fL Abnormal 79-97 [facility] Work Phone: Comment on above: PATIENT WAS FASTINGP ERFORMED BY: [address] [id number] Information: [id number] Monocytes #/vol (Bld) 0.4 {x10E3/uL} Normal 0.1-0.9 [facility] Work Phone: Comment on above: PATIENT WAS FASTINGP ERFORMED BY: [address] [id number] Information: [id number] Monocytes Auto #/vol (Bld) 0.4 {x10E3/uL} Normal 0.1-0.9 [facility] Work Phone: Monocytes/100 WBC (Bld) 6 % Normal [facility] Work Phone: Comment on above: PATIENT WAS FASTINGP ERFORMED BY: [address] [id number] Information: [id number] Monocytes/100 WBC Auto (Bld) 6 % Normal [facility] Work Phone: Neutrophils #/vol (Bld) 4.1 {x10E3/uL} Normal 1.4-7.0 [facility] Work Phone: Comment on above: PATIENT WAS FASTINGP ERFORMED BY: [place] [id number] [facility] [id number] Information: [id number] Neutrophils Auto #/vol (Bld) 4.1 {x10E3/uL} Normal 1.4-7.0 [facility] Work Phone: Neutrophils/100 WBC (Bld) 57 % Normal [facility] Work Phone: Comment on above: PATIENT WAS FASTINGP ERFORMED BY: [facility] Mpjett[address] [id number] Information: 762933,[id number] Neutrophils/100 WBC Auto (Bld) 57 % Normal [facility] Work Phone: Platelets #/vol (Bld) 374 {x10E3/uL} Normal 150-379 [facility] Work Phone: Comment on above: PATIENT WAS FASTINGP ERFORMED BY: [address] [id number] Information: 580287,[id number] Platelets Auto #/vol (Bld) 374 {x10E3/uL} Normal 150-379 [facility] Work Phone: RBC #/vol (Bld) 4.84 {x10E6/uL} Normal 3.77-5.28 Comp [facility] Internal Medicine Work Phone: Comment on above: PATIENT WAS FASTINGP ERFORMED BY: [address] [id number] Information: [id number] RBC Auto #/vol (Bld) 4.84 {x10E6/uL} Normal 3.77-5.28 [facility] Work Phone: WBC #/vol (Bld) 7.2 {x10E3/uL} Normal 3.4-10.8 [facility] Internal Medicine Work Phone: Comment on above: PATIENT WAS FASTINGP ERFORMED BY: PRATEEK ElvaKimo Alcantara6370 [facility] [id number] Information: [id number],[id number] WBC Auto #/vol (Bld) 7.2 {x10E3/uL} Normal 3.4-10.8 [facility] Internal Medicine Work Phone: CBC with auto diff (98964)Or dered By: Systems Admin on 07-26-2014 Basophils (Bld) [#/Vol] 0.0 10*3/uL Normal 0.0-0.2 [facility] Internal Medicine; [facility] Internal Medicine Work Phone: Comment on above: PATIENT WAS FASTINGP ERFORMED BY: PRATEEK [address] [id number] Information: [id number] Eosinophils (Bld) [#/Vol] 0.2 10*3/uL Normal 0.0-0.4 [facility]; [facility] Work Phone: Comment on above: PATIENT WAS FASTINGP ERFORMED BY: PRATEEK Girardlin6370 [facility] [id number] Information: [id number],[id number] Immature granulocytes (Bld) [#/Vol] 0.0 10*3/uL Normal 0.0-0.1 [facility]; [facility] Work Phone: Comment on above: PATIENT WAS FASTINGP ERFORMED BY: PRATEEK [facility]6370 [facility] [id number] Information: 318857,[id number] Lymphocytes (Bld) [#/Vol] 2.6 10*3/uL Normal 0.7-3.1 [facility]; [facility] Work Phone: Comment on above: PATIENT WAS FASTINGP ERFORMED BY: PRATEEK StevensonTaylor [place] 8654870 [facility] [id number] Information: [id number] Monocytes (Bld) [#/Vol] 0.4 10*3/uL Normal 0.1-0.9 [facility]; [facility] Work Phone: Comment on above: PATIENT WAS FASTINGP ERFORMED BY: [facility]K [facility] Lpbied7034 [facility] [id number] Information: [id number] Neutrophils (Bld) [#/Vol] 4.1 10*3/uL Normal 1.4-7.0 [facility]; [facility] Work Phone: Comment on above: PATIENT WAS FASTINGP ERFORMED BY: [address] [id number] Information: [id number] Platelets (Bld) [#/Vol] 374 10*3/uL Normal 150-379 [facility]; [facility] Work Phone: Comment on above: PATIENT WAS FASTINGP ERFORMED BY: [address] [id number] Information: [id number] RBC (Bld) [#/Vol] 4.84 10*6/uL Normal 3.77-5.28 Compr ehensive Internal Medicine; [facility] Work Phone: Comment on above: PATIENT WAS FASTINGP ERFORMED BY: [facility]6370 [facility] [id number] Information: [id number] WBC (Bld) [#/Vol] 7.2 10*3/uL Normal 3.4-10.8 Compre hensive Internal Medicine; [facility] Work Phone: Comment on above: PATIENT WAS FASTINGP ERFORMED BY: [facility]6370 [facility] [id number] Information: 494476,D12829 LIPID PANEL (38601)on 2014 Cholesterol in HDL mass conc 38 mg/dL Abnormal [facility] Work Phone: Comment on above: According to ATP-III Guidelines, HDL-C >59 mg/dL is considered anegative risk factor for CHD. PATIENT WAS FASTINGP ERFORMED BY: PRATEEK Alcantara6370 [facility] [id number] Cholesterol in LDL mass conc 108 mg/dL Abnormal 0-99 [facility] Work Phone: Comment on above: PATIENT WAS FASTINGP ERFORMED BY: PRATEEK Alcantara6370 [facility] [id number] Cholesterol in LDL/Cholesterol in HDL mass ratio 2.8 {ratio_units} Normal 0.0-3.2 [facility] Work Phone: Comment on above: LDL/HDL Ratio Men Wo men 1/2 Avg.Risk 1.0 1.5 Avg.Risk 3.6 3.2 2X Avg.Risk 6.2 5.0 3X Avg.Risk 8.0 6.1 PATIENT WAS FASTINGP ERFORMED BY: PRATEEK Alcantara6370 [facility] [id number] Cholesterol in VLDL mass conc 16 mg/dL Normal 5-40 [facility] Work Phone: Comment on above: PATIENT WAS FASTINGP ERFORMED BY: PRATEEK Alcantara6370 [facility] [id number] Cholesterol mass conc 162 mg/dL Normal 100-199 [facility] prehensive Internal Medicine Work Phone: Comment on above: PATIENT WAS FASTINGP ERFORMED BY: PRATEEK Alcantara6370 [facility] [id number] Triglyceride mass conc 79 mg/dL Normal 0-149 [facility] Work Phone: Comment on above: PATIENT WAS FASTINGP ERFORMED BY: PRATEEK Girardlin6370 [facility] [id number] METABOLIC PANEL, COMPREHENSI VE (72124)on 07-26-2014 Albumin mass conc 4.1 g/dL Normal 3.5-5.5 Compreh ensive Internal Medicine Work Phone: Comment on above: PATIENT WAS FASTINGP ERFORMED BY: CB [facility] Fntpvm0004 [address] RoadDublin [place] [id number] Albumin/Globulin mass ratio 1.4 {ratio} Normal 1.1-2.5 [facility] Internal Medicine Work Phone: Comment on above: PATIENT WAS FASTINGP ERFORMED BY: [facility] Xrxcnc4050 [address] RoadDublin [place] [id number] ALP enzyme act/vol 63 [iU]/L Normal 39-117 [facility] Internal Medicine Work Phone: Comment on above: PATIENT WAS FASTINGP ERFORMED BY: [facility] Xmqiqm5437 [address] RoadDublin [place] [id number] ALT enzyme act/vol 20 [iU]/L Normal 0-32 [facility] Internal Medicine Work Phone: Comment on above: PATIENT WAS FASTINGP ERFORMED BY: [facility] Unlxdt5344 [address] RoadDublin [place] [id number] AST enzyme act/vol 15 [iU]/L Normal 0-40 [facility] Internal Medicine Work Phone: Comment on above: PATIENT WAS FASTINGP ERFORMED BY: [facility] Aymmvv9902 [address] RoadDublin [place] [id number] Bilirubin mass conc 0.3 mg/dL Normal 0.0-1.2 [facility] Internal Medicine Work Phone: Comment on above: PATIENT WAS FASTINGP ERFORMED BY: [facility] Jyhzss7568 [address] RoadDublin [place] [id number] Calcium mass conc 8.9 mg/dL Normal 8.7-10.2 Compreh [facility] Internal Medicine Work Phone: Comment on above: PATIENT WAS FASTINGP ERFORMED BY: [facility] Rgdpfc2607 [address] RoadDublin [place] [id number] Chloride molar conc 101 mmol/L Normal 97-108 Compr [facility] Internal Medicine Work Phone: Comment on above: PATIENT WAS FASTINGP ERFORMED BY: [facility] Qcorve8408 [address] RoadDublin [place] [id number] CO2 molar conc 22 mmol/L Normal 18-29 Comprehens oscar Internal Medicine Work Phone: Comment on above: PATIENT WAS FASTINGP ERFORMED BY: PRATEEK [facility] Mlznyr8604 [address] [facility] Hospitalblin [place] [id number] Creatinine mass conc 0.71 mg/dL Normal 0.57-1.00 Comp rehensive Internal Medicine Work Phone: Comment on above: PATIENT WAS FASTINGP ERFORMED BY: PRATEEK [facility] Tzsfaa9240 [facility] [id number] GFR/1.73 sq M predicted among blacks CKD-EPI vol rate/area (S/P/Bld) 121 mL/min/1.73 Normal Comprehensiv e Internal Medicine Work Phone: Comment on above: PATIENT WAS FASTINGP ERFORMED BY: PRATEEK [facility] Fiywav9380 [address] RoadFormerly [facility]in [place] [id number] GFR/1.73 sq M predicted among non-blacks CKD-EPI vol rate/area (S/P/Bld) 105 mL/min/1.73 Normal [facility] Work Phone: Comment on above: PATIENT WAS FASTINGP ERFORMED BY: PRATEEK [facility] Tferxj4549 [facility] [id number] Globulin Calculated mass conc (S) 3.0 g/dL Normal 1.5-4.5 [facility] Work Phone: Globulin mass conc (S) 3.0 g/dL Normal 1.5-4.5 [facility] Work Phone: Comment on above: PATIENT WAS FASTINGP ERFORMED BY: PRATEEK [facility] Pqyind2502 [facility] [id number] Glucose mass conc 97 mg/dL Normal 65-99 Compreh ensive Internal Medicine Work Phone: Comment on above: PATIENT WAS FASTINGP ERFORMED BY: PRATEEK [facility] Bexhwx0656 [facility] [id number] Potassium molar conc 4.4 mmol/L Normal 3.5-5.2 Comp rehensive Internal Medicine Work Phone: Comment on above: PATIENT WAS FASTINGP ERFORMED BY: PRATEEK StevensonComichael GirardNrhlji5737 [address] RoadDublin [place] [id number] Protein mass conc 7.1 g/dL Normal 6.0-8.5 Compreh ensive Internal Medicine Work Phone: Comment on above: PATIENT WAS FASTINGP ERFORMED BY: PRATEEK Girardlin6370 [address] RoadD[address] [place] [id number] Sodium molar conc 139 mmol/L Normal 134-144 Compreh ensive Internal Medicine Work Phone: Comment on above: PATIENT WAS FASTINGP ERFORMED BY: PRATEEK LabKimo GirardRxdwta1815 [address] RoadDublin [place] [id number] Urea nitrogen mass conc 11 mg/dL Normal 6-24 [facility] Work Phone: Comment on above: PATIENT WAS FASTINGP ERFORMED BY: PRATEEK Girardlin6370 [address] RoadD[address] [place] [id number] Urea nitrogen/Creatinine mass ratio 15 mg/mg Normal 9-23 [facility] Work Phone: Comment on above: PATIENT WAS FASTINGP ERFORMED BY: PRATEEK Girardlin6370 [address] RoadD[address] [place] [id number] METABOLIC PANEL, COMPREHENSI VE (31793)Ordered By: Systems Admin on 07-26-2014 ALP [Catalytic activity/Vol] 63 U/L Normal 39-117 [facility] Work Phone: Comment on above: PATIENT WAS FASTINGP ERFORMED BY: PRATEEK [facility] [id number] [address] RoadDublin [place] [id number] ALT [Catalytic activity/Vol] 20 U/L Normal 0-32 [facility]; [facility] Work Phone: Comment on above: PATIENT WAS FASTINGP ERFORMED BY: PRATEEK [facility] Nkizim0050 [address] RoadDublin [place] [id number] AST [Catalytic activity/Vol] 15 U/L Normal 0-40 [facility] Work Phone: Comment on above: PATIENT WAS FASTINGP ERFORMED BY: PRATEEK [facility] [id number] Henry RoadDublin [place] [id number] Microscopic Examinationon Bacteria LM.HPF #/area (Urine sed) Few Normal [facility] Work Phone: Comment on above: PATIENT WAS FASTINGP ERFORMED BY: [facility] [id number] [address] [facility] [place] [id number] Crystals LM Nom (Urine sed) Amorphous Sediment Normal [facility] Work Phone: Comment on above: PATIENT WAS FASTINGP ERFORMED BY: [facility] [id number] [facility] [id number] Epithelial cells LM.HPF #/area (Urine sed) 0-10 Normal 0 - 10 [facility] Work Phone: Comment on above: PATIENT WAS FASTINGP ERFORMED BY: [facility] [id number] [facility] [id number] Mucus LM Ql (Urine sed) Present Normal [facility] Work Phone: Mucus Ql (Urine sed) Present Normal Comp rehensive [facility] Medicine Work Phone: Comment on above: PATIENT WAS FASTINGP ERFORMED BY: [facility] Btsycr1384 [facility] [place] [id number] RBC LM.HPF #/area (Urine sed) 0-2 Normal 0 - 2 [facility] Work Phone: Comment on above: PATIENT WAS FASTINGP ERFORMED BY: [facility] [id number] [facility] [id number] Unidentified crystals LM Ql (Urine sed) Present Abnormal [facility] Work Phone: Comment on above: PATIENT WAS FASTINGP ERFORMED BY: [facility] Sggzrx3089 [facility] [place] [id number] WBC LM.HPF #/area (Urine sed) 0-5 Normal 0 - 5 [facility] Work Phone: Comment on above: PATIENT WAS FASTINGP ERFORMED BY: [facility] [id number] [facility] [place] [id number] TSH ([id number])on 07-26-2014 Thyrotropin Qn 3.010 {uIU/mL} Normal 0.450-4.50 0 [facility] Work Phone: Comment on above: PATIENT WAS FASTINGP ERFORMED BY: PRATEEK Alcantara6370 [facility] [id number] URINALYSIS, W/ MICRO ([id number]) on 07-26-2014 Appearance Nom (U) Turbid Abnormal Compre hensive [facility] Work Phone: Comment on above: PATIENT WAS FASTINGP ERFORMED BY: PRATEEK Alcantara6370 [facility] [id number] Bilirubin Ql (U) Negative Normal Comprehe nsive [facility] Medicine Work Phone: Comment on above: PATIENT WAS FASTINGP ERFORMED BY: PRATEEK Girardlin6370 [facility] [id number] Color Nom (U) Yellow Normal Comprehensi ve Internal Medicine Work Phone: Comment on above: PATIENT WAS FASTINGP ERFORMED BY: PRATEEK Alcantara6370 [facility] [id number] Glucose Ql (U) Negative Normal Comprehens oscar [facility] Work Phone: Comment on above: PATIENT WAS FASTINGP ERFORMED BY: PRATEEK Alcantara6370 [facility] [id number] Hemoglobin Ql (U) 1+ Abnormal Compreh ensive [facility] Work Phone: Comment on above: PATIENT WAS FASTINGP ERFORMED BY: PRATEEK Girardlin6370 [facility] [id number] Hemoglobin Test strip Ql (U) 1+ Abnormal [facility] Work Phone: Ketones Ql (U) Negative Normal Comprehens oscar [facility] Work Phone: Comment on above: PATIENT WAS FASTINGP ERFORMED BY: PRATEEK Girardlin6370 [facility] [id number] Leukocyte esterase Test strip Ql (U) Negative Normal [facility] Work Phone: Comment on above: PATIENT WAS FASTINGP ERFORMED BY: PRATEEK Girardlin6370 [address] RoadDublin [place] [id number] Microscopic observation LM Nom (Urine sed) See below: Normal [facility] Work Phone: Comment on above: Microscopic was yanely cated and was performed. PATIENT WAS FASTINGP ERFORMED BY: PRATEEK [facility] Laxnyu9456 Henry RoadDublin [place] [id number] Nitrite Ql (U) Negative Normal Comprehens oscar [facility] Work Phone: Comment on above: PATIENT WAS FASTINGP ERFORMED BY: PRATEEK [facility] Ptyobu2817 [address] RoadDublin [place] [id number] Nitrite Test strip Ql (U) Negative Normal [facility] Work Phone: pH (U) 5.5 [pH] Normal 5.0-7.5 [facility] Work Phone: Comment on above: PATIENT WAS FASTINGP ERFORMED BY: [facility] Zalgep7298 [address] Roadbl[address] [place] [id number] pH Test strip (U) 5.5 [pH] Normal 5.0-7.5 Compreh ensive [facility] Work Phone: Protein Ql (U) Negative Normal Comprehens oscar [facility] Work Phone: Comment on above: PATIENT WAS FASTINGP ERFORMED BY: [facility]K [facility] Bhrpfu2472 Henry RoadDublin [place] [id number] Protein Test strip Ql (U) Negative Normal [facility] Work Phone: Specific gravity Relative Density (U) 1.024 1 Normal 1.005-1.03 0 [facility] Work Phone: Comment on above: PATIENT WAS FASTINGP ERFORMED BY: [facility] Cjyopy3883 [address] RoadDublin [place] [id number] Urobilinogen Test strip mass conc (U) 0.2 mg/dL Normal 0.0-1.9 Comprehensiv e Internal Medicine Work Phone: Comment on above: PATIENT WAS FASTINGP ERFORMED BY: [facility] Bhfibc6003 [address] RoadDublin [place] [id number] URINALYSIS, W/ MICRO ([id number]) Ordered By: Systems Admin on 07-26-2014 Bilirubin Ql (U) Negative Normal Comprehe nsive [facility]; [facility] Work Phone: Comment on above: PATIENT WAS FASTINGP ERFORMED BY: PRATEEK [facility] Widgsy4624 [address] RoadDublin [place] [id number] Glucose Ql (U) Negative Normal Comprehens o[facility]; [facility] Work Phone: Comment on above: PATIENT WAS FASTINGP ERFORMED BY: PRATEEK [facility] Dvfodk2084 [address] RoadDublin [place] [id number] Ketones Ql (U) Negative Normal Comprehens o[facility]; [facility] Work Phone: Comment on above: PATIENT WAS FASTINGP ERFORMED BY: PRATEEK [facility] Thnyxo9238 [address] RoadDublin [place] [id number] Leukocyte esterase Test strip Ql (U) Negative Normal [facility]; [facility] Work Phone: Comment on above: PATIENT WAS FASTINGP ERFORMED BY: PRATEEK [facility] Msrobk6561 [address] RoadDublin [place] [id number] Nitrite Ql (U) Negative Normal Comprehens o[facility]; [facility] Work Phone: Comment on above: PATIENT WAS FASTINGP ERFORMED BY: PRATEEK [facility] Vqzhfk6011 [address] RoadDublin [place] [id number] Protein Ql (U) Negative Normal Comprehens [facility]; [facility] Work Phone: Comment on above: PATIENT WAS FASTINGP ERFORMED BY: PRATEEK [facility] Yfvmzk0784 [address] RoadDublin [place] [id number] Urobilinogen (U) [Mass/Vol] 0.2 mg/dL Normal 0.0-1.9 [facility]; [facility] Work Phone: Comment on above: PATIENT WAS FASTINGP ERFORMED BY: PRATEEK [facility] Hrvkjo1023 [address] RoadDublin [place] [id number] VITAMIN B-12 (CYANOCOBALAMIN ) ([id number])on 07-26-2014 Cobalamin (Vitamin B12) mass conc 306 pg/mL Normal 211-946 [facility] Work Phone: Comment on above: PATIENT WAS FASTINGP ERFORMED BY: [employer] Omfphx2036 [facility] [id number] Vitamin D Hydroxy ([id number])on 07-26-2014 25-Hydroxyvitamin D2+25-Hydroxyvitamin D3 mass conc 18.9 ng/mL Abnormal 30.0-100.0 [facility] Work Phone: Comment on above: Vitamin D deficiency has been defined by the [place] of[place]icine and an Endocrine Society practice guideline as alevel of serum 25-OH vitamin D less than 20 ng/mL (1,2).The Endocrine Society went on to further define vitamin Dinsufficiency as a level between 21 and 29 ng/mL (2).1. IOM ([place] [employer]). 2010. Dietary reference intakes for calcium and D. [place]: The National Academies Press.2. Monica MF, Lisa TORRES, Aye JAMIL, et al. Evaluation, treatment, and prevention of vitamin D deficiency: an Endocrine Society clinical practice guideline. JCEM. 2010; 96(7):1911-30. PATIENT WAS FASTINGP ERFORMED BY: GuestMetricslin6370 [facility] [id number] Culture, urine Bacteria identified Cx Nom (U) Mixed Gram Pos & Gram Neg Org [facility] Work Phone: Vital Signs Date Time Vital Sign Value Performing Clinician Facility 12-04-2024 12:55-0400 Body height 177.[address] Sandeep Guerrero DO Work Phone: [facility] 02-16-2023 08:10-0400 Body height 178.44 cm Trinh Tsai CMA [facility]; [facility] Work Phone: 02-16-2023 08:10-0400 Body mass index (BMI) [Ratio] 28.49 kg/m2 Trinh Tsai CMA [facility]; [facility] Work Phone: 02-16-2023 08:10-0400 Body surface area Derived from formula 2.09 m2 Trinh Tsai CMA [facility]; [facility] Work Phone: 02-16-2023 08:10-0400 Body temperature 98.1 [degF] Trinh Tsai [facility]; [facility] Work Phone: Comment on above: Method: Thermal Scan 02-16-2023 08:10-0400 Body weight 90.72 kg Trinh Tsai [facility] Work Phone: 02-16-2023 08:10-0400 Diastolic blood pressure 68 mm[Hg] rTinh Tsai [facility]; [facility] Work Phone: Comment on above: Patient Position: Sitting; Cuff Location : Left Arm; Cuff Size: Standard 02-16-2023 08:10-0400 Heart rate 71 /min Trinh Tsai [facility] Work Phone: Comment on above: Pattern: Regular 02-16-2023 08:10-0400 Respiratory rate 16 /min Trinh Tsai [facility]; [facility] Work Phone: Comment on above: Pattern: Unlabored 02-16-2023 08:10-0400 Systolic blood pressure 110 mm[Hg] Trinh Tsai [facility] Work Phone: Comment on above: Patient Position: Sitting; Cuff Location : Left Arm; Cuff Size: Standard 01-24-2023 23:09-0400 Respiratory rate 16 /min [facility] 01-24-2023 21:09-0400 Body height 177.8 cm [facility] 01-24-2023 21:09-0400 Body mass index (BMI) [Ratio] 29.6 kg/m2 [facility] 01-24-2023 21:090400 Body temperature 97.8 [degF] [facility] 01-24-2023 21:090400 Body weight 93.57 kg [facility] 01-24-2023 21:09-0400 Diastolic blood pressure 83 mm[Hg] [facility] 01-24-2023 21:09-0400 Heart rate 77 /min [facility] 01-24-2023 21:09-0400 SaO2% (BldA) [Mass fraction] 98 % [facility] 01-24-2023 21:09-0400 Systolic blood pressure 149 mm[Hg] [facility] 10-12-2022 20:32-0400 Diastolic blood pressure 81 mm[Hg] Dr. Ortiz Fast Work Phone: [facility] 10-12-2022 20:32-0400 Heart rate 72 /min Dr. Ortiz Fast Work Phone: [facility] 10-12-2022 20:32-0400 Respiratory rate 15 /min Dr. Ortiz Fast Work Phone: [facility] 10-12-2022 20:32-0400 SaO2% (BldA) [Mass fraction] 96 % Dr. Ortiz Fast Work Phone: [facility] 10-12-2022 20:32-0400 Systolic blood pressure 147 mm[Hg] Dr. Ortiz Fast Work Phone: [facility] 10-12-2022 18:28-0400 Body height 177.[address] Ortiz Fast Work Phone: [facility] 10-12-2022 18:28-0400 Body mass index (BMI) [Ratio] 29.5 kg/m2 Dr. Ortiz Fast Work Phone: [facility] 10-12-2022 18:28-0400 Body temperature 98 [degF] Dr. Ortiz Fast Work Phone: [facility] 10-12-2022 18:28-0400 Body weight 93.[address] Ortiz Fast Work Phone: [facility] 02-18-2022 10:49-0400 Body temperature 98.1 [degF] [facility] Work Phone: 02-18-2022 10:49-0400 Diastolic blood pressure 90 mm[Hg] [facility] Work Phone: 02-18-2022 10:49-0400 Heart rate 66 /min [facility] Work Phone: 02-18-2022 10:49-0400 Respiratory rate 16 /min [facility] Work Phone: 02-18-2022 10:49-0400 SaO2% (BldA) [Mass fraction] 100 % [facility] Work Phone: 02-18-2022 10:49-0400 Systolic blood pressure 140 mm[Hg] [facility] Work Phone: 02-18-2022 07:06-0400 Body height 177.8 cm [facility] Work Phone: 02-18-2022 07:06-0400 Body mass index (BMI) [Ratio] 27.9 kg/m2 [facility] Work Phone: 02-18-2022 07:06-0400 Body weight 88.45 kg [facility] Work Phone: 02-04-2022 14:20-0400 Body temperature 97.8 [degF] [facility] Work Phone: 02-04-2022 14:20-0400 Diastolic blood pressure 87 mm[Hg] [facility] Work Phone: 02-04-2022 14:20-0400 Heart rate 64 /min [facility] Work Phone: 02-04-2022 14:20-0400 Respiratory rate 16 /min [facility] Work Phone: 02-04-2022 14:20-0400 SaO2% (BldA) [Mass fraction] 100 % [facility] Work Phone: 02-04-2022 14:20-0400 Systolic blood pressure 138 mm[Hg] [facility] Work Phone: 02-04-2022 12:22-0400 Body height 177.8 cm [facility] Work Phone: 02-04-2022 12:22-0400 Body mass index (BMI) [Ratio] 27.8 kg/m2 [facility] Work Phone: 02-04-2022 12:22-0400 Body weight 88 kg [facility] Work Phone: 01-29-2022 15:15-0400 Diastolic blood pressure 73 mm[Hg] [facility] Work Phone: 01-29-2022 15:15-0400 Heart rate 45 /min [facility] Work Phone: 01-29-2022 15:15-0400 Systolic blood pressure 105 mm[Hg] [facility] Work Phone: 01-29-2022 12:25-0400 Body mass index (BMI) [Ratio] 28.7 kg/m2 [facility] Work Phone: 01-29-2022 12:25-0400 Body temperature 98.7 [degF] [facility] Work Phone: 01-29-2022 12:25-0400 Body weight 90.71 kg [facility] Work Phone: 01-29-2022 12:25-0400 Respiratory rate 18 /min [facility] Work Phone: 01-29-2022 12:25-0400 SaO2% (BldA) [Mass fraction] 98 % [facility] Work Phone: 01-25-2022 22:18-0400 Diastolic blood pressure 79 mm[Hg] [facility] Work Phone: 01-25-2022 22:18-0400 Systolic blood pressure 128 mm[Hg] [facility] Work Phone: 01-25-2022 18:36-0400 Body mass index (BMI) [Ratio] 27.9 kg/m2 [facility] Work Phone: 01-25-2022 18:36-0400 Body temperature 96.4 [degF] [facility] Work Phone: 01-25-2022 18:36-0400 Body weight 88.45 kg [facility] Work Phone: 01-25-2022 18:36-0400 Heart rate 67 /min [facility] Work Phone: 01-25-2022 18:36-0400 Respiratory rate 18 /min [facility] Work Phone: 01-25-2022 18:36-0400 SaO2% (BldA) [Mass fraction] 97 % [facility] Work Phone: 11-17-2021 08:28-0400 Body height 178.44 cm Allison Slarb [employer] [facility]; [facility] Work Phone: 11-17-2021 08:28-0400 Body mass index (BMI) [Ratio] 27.78 kg/m2 Allison Slarb [employer] [facility]; [facility] Work Phone: 11-17-2021 08:28-0400 Body surface area Derived from formula 2.07 m2 Allison Slarb [employer] [facility]; [facility] Work Phone: 11-17-2021 08:28-0400 Body temperature 97.1 [degF] Allison Slarb [employer] [facility]; [facility] Work Phone: 11-17-2021 08:28-0400 Body weight 88.45 kg Allison Slarb [employer] [facility]; [facility] Work Phone: 11-17-2021 08:28-0400 Diastolic blood pressure 72 mm[Hg] Allison Slarb [employer] [facility]; [facility] Work Phone: Comment on above: Patient Position: Sitting; Cuff Location : Left Arm; Cuff Size: Standard 11-17-2021 08:28-0400 Heart rate 75 /min Allison Slarb [employer] [facility]; [facility] Work Phone: Comment on above: Pattern: Regular 11-17-2021 08:28-0400 Respiratory rate 16 /min Allison Helms [facility]; [facility] Work Phone: Comment on above: Pattern: Unlabored 11-17-2021 08:28-0400 SaO2% (BldA) [Mass fraction] 97 % Allison Helms [facility]; [facility] Work Phone: Comment on above: Room air 11-17-2021 08:28-0400 Systolic blood pressure 118 mm[Hg] Allison Helms [facility]; [facility] Work Phone: Comment on above: Patient Position: Sitting; Cuff Location : Left Arm; Cuff Size: Standard 07-29-2021 13:32-0500 Body height 178.44 cm [facility] Work Phone: 07-29-2021 13:32-0500 Body mass index (BMI) [Ratio] 27 kg/m2 Trinh Manselect [facility] rehabilitation hospitalPawaa Software [facility]; [facility] Work Phone: 07-29-2021 13:32-0500 Body surface area Derived from formula 2.05 m2 [facility]; [facility] Work Phone: 07-29-2021 13:32-0500 Body temperature 97.1 [degF] [facility]; [facility] Work Phone: Comment on above: Method: Thermal Scan 07-29-2021 13:32-0500 Body weight 85.96 kg Trinh Manselect [facility]io[facility] rehabilitation hospitalPawaa Software [facility]; [facility] Work Phone: 07-29-2021 13:32-0500 Diastolic blood pressure 70 mm[Hg] Trinh Oatesselect [facility] rehabilitation hospitalPawaa Software [facility]; [facility] Work Phone: Comment on above: Patient Position: Sitting; Cuff Location : Left Arm; Cuff Size: Standard 02-16-2022 13:32-0500 Heart rate 80 /min Trinh Tsai [facility]; [facility] Work Phone: Comment on above: Pattern: Regular 07-29-2021 13:32-0500 Respiratory rate 16 /min Trinh Tsai [facility]; [facility] Work Phone: Comment on above: Pattern: Unlabored 07-29-2021 13:32-0500 Systolic blood pressure 118 mm[Hg] Trinh Tsai [facility]; [facility] Work Phone: Comment on above: Patient Position: Sitting; Cuff Location : Left Arm; Cuff Size: Standard 06-10-2021 09:08-0500 Body height 178.44 cm Nate Mcneill [facility]; [facility] Work Phone: 06-10-2021 09:08-0500 Body mass index (BMI) [Ratio] 28.42 kg/m2 Nate Mcneill [facility]; [facility] Work Phone: 06-10-2021 09:08-0500 Body surface area Derived from formula 2.09 m2 Nate Mcneill [facility]; [facility] Work Phone: 06-10-2021 09:08-0500 Body weight 90.49 kg Nate Mcneill [facility]; [facility] Work Phone: 06-01-2021 15:09-0500 Body height 178.44 cm [facility]; [facility] Work Phone: 06-01-2021 15:09-0500 Body mass index (BMI) [Ratio] 28.42 kg/m2 [facility]; [facility] Work Phone: 06-01-2021 15:09-0500 Body surface area Derived from formula 2.09 m2 [facility]; [facility] Work Phone: 06-01-2021 15:09-0500 Body temperature 97.1 [degF] [facility]; [facility] Work Phone: Comment on above: Method: Thermal Scan 06-01-2021 15:09-0500 Body weight 90.49 kg Trinh Tsai [facility]; [facility] Work Phone: 06-01-2021 15:09-0500 Diastolic blood pressure 70 mm[Hg] Trinh Tsai [facility]; [facility] Work Phone: Comment on above: Patient Position: Sitting; Cuff Location : Left Arm; Cuff Size: Standard 06-01-2021 15:09-0500 Heart rate 78 /min Trinh Tsai [facility]; [facility] Work Phone: Comment on above: Pattern: Regular 06-01-2021 15:09-0500 Respiratory rate 16 /min Trinh Tsai [facility]; [facility] Work Phone: Comment on above: Pattern: Unlabored 06-01-2021 15:09-0500 SaO2% (BldA) [Mass fraction] 99 % Trinh Tsai [facility]; [facility] Work Phone: Comment on above: Room air 06-01-2021 15:09-0500 Systolic blood pressure 122 mm[Hg] Trinh Tsai [facility]; [facility] Work Phone: Comment on above: Patient Position: Sitting; Cuff Location : Left Arm; Cuff Size: Standard 05-26-2021 08:11-0500 Body height 178.44 cm Allison Duartejosseline [facility]; [facility] Work Phone: 05-26-2021 08:11-0500 Body mass index (BMI) [Ratio] 28.42 kg/m2 [facility]; [facility] Work Phone: 05-26-2021 08:11-0500 Body surface area Derived from formula 2.09 m2 Allison Analia [facility]; [facility] Work Phone: 05-26-2021 08:11-0500 Body temperature 97.7 [degF] Allison Duarterb [employer] [facility]; [facility] Work Phone: 05-26-2021 08:11-0500 Body weight 90.49 kg Allison Duarterb [employer] [facility]; [facility] Work Phone: 05-26-2021 08:11-0500 Diastolic blood pressure 78 mm[Hg] Allison Slarb [employer] [facility]; [facility] Work Phone: Comment on above: Patient Position: Sitting; Cuff Location : Left Arm; Cuff Size: Standard 05-26-2021 08:11-0500 Heart rate 78 /min Allison Slarb [employer] [facility]; [facility] Work Phone: Comment on above: Pattern: Regular 05-26-2021 08:11-0500 Respiratory rate 16 /min Allison Geraldrb [employer] [facility]; [facility] Work Phone: Comment on above: Pattern: Unlabored 05-26-2021 08:11-0500 SaO2% (BldA) [Mass fraction] 97 % Allison Geraldrb [facility]; [facility] Work Phone: Comment on above: Room air 05-26-2021 08:11-0500 Systolic blood pressure 120 mm[Hg] Allison Duarterb [facility] [facility]; [facility] Work Phone: Comment on above: Patient Position: Sitting; Cuff Location : Left Arm; Cuff Size: Standard 11-12-2020 10:040 Body height 178.44 cm [facility]; [facility] Work Phone: 11-12-2020 10:040 Body mass index (BMI) [Ratio] 28.42 kg/m2 [facility]; [facility] Work Phone: 11-12-2020 10:-040 Body surface area Derived from formula 2.09 m2 [facility]; [facility] Work Phone: 11-12-2020 10:21-0400 Body temperature 97.3 [degF] Trinh Tsai CMA [facility]; [facility] Work Phone: Comment on above: Method: Thermal Scan 11-12-2020 10:21-0400 Body weight 90.49 kg Trinh Tsai CMA [facility]; [facility] Work Phone: 11-12-2020 10:21-0400 Diastolic blood pressure 70 mm[Hg] Trinh Tsai [facility]; [facility] Work Phone: Comment on above: Patient Position: Sitting; Cuff Location : Left Arm; Cuff Size: Standard 11-12-2020 10:-0400 Heart rate 68 /min Trinh Tsai [facility]; [facility] Work Phone: Comment on above: Pattern: Regular 11-12-2020 10:-0400 Respiratory rate 16 /min Trinh Tsai [facility]; [facility] Work Phone: Comment on above: Pattern: Unlabored 11-12-2020 10:-0400 Systolic blood pressure 120 mm[Hg] Trinh Tsai [facility]; [facility] Work Phone: Comment on above: Patient Position: Sitting; Cuff Location : Left Arm; Cuff Size: Standard 05-26-2020 11:29-0500 BMI (Body Mass Index) 28.85 kg/m2 Trinh Tsai [facility]; [facility] Work Phone: 05-26-2020 11:29-0500 Body Temperature 97.3 [degF] Trinh Tsai [facility]; [facility] Work Phone: Comment on above: Method: Thermal Scan 05-26-2020 11:29-0500 Body weight 91.85 kg Trinh Tsai [facility]; [facility] Work Phone: 05-26-2020 11:29-0500 BP Diastolic 64 mm[Hg] Trinh Tsai [facility]; [facility] Work Phone: Comment on above: Patient Position: Sitting; Cuff Location : Left Arm; Cuff Size: Standard 05-26-2020 11:29-0500 BP Systolic 110 mm[Hg] Trinh Tsai [employer] [facility]; [facility] Work Phone: Comment on above: Patient Position: Sitting; Cuff Location : Left Arm; Cuff Size: Standard 05-26-2020 11:29-0500 BSA (Body Surface Area) 2.1 m2 Trinh Tsai CMA [facility]; [facility] Work Phone: 05-26-2020 11:29-0500 Height 178.44 cm Trinh Tsai CMA [facility]; [facility] Work Phone: 05-26-2020 11:29-0500 Pulse (Heart Rate) 65 /min Trinh Tsai [employer] [facility]; [facility] Work Phone: Comment on above: Pattern: Regular 05-26-2020 11:29-0500 Pulse Oximetry 98 % Sandeep Shukri [facility]; [facility] Work Phone: Comment on above: Room air 05-26-2020 11:29-0500 Respiratory Rate 16 /min Trinh Tsai [employer] [facility]; [facility] Work Phone: Comment on above: Pattern: Unlabored 05-26-2020 11:29-0500 SaO2% (BldA) [Mass fraction] 98 % Trinh Tsai [employer] [facility]; [facility] Work Phone: Comment on above: Room air 08-06-2019 10:17-0500 BMI (Body Mass Index) 28.85 kg/m2 Trinh Tsai [facility] Work Phone: 08-06-2019 10:17-0500 Body Temperature 97.5 [degF] Trinh Tsai [facility] Work Phone: Comment on above: Method: Temporal 08-06-2019 10:17-0500 Body weight 91.85 kg Trinh Tsai [facility] Work Phone: 08-06-2019 10:17-0500 BP Diastolic 64 mm[Hg] Trinh Tsai [facility] Work Phone: Comment on above: Patient Position: Sitting; Cuff Location : Left Arm; Cuff Size: Standard 08-06-2019 10:17-0500 BP Systolic 115 mm[Hg] Trinh Tsai [facility] Work Phone: Comment on above: Patient Position: Sitting; Cuff Location : Left Arm; Cuff Size: Standard 08-06-2019 10:17-0500 BSA (Body Surface Area) 2.1 m2 Trinh Tsai [facility] Work Phone: 08-06-2019 10:17-0500 Height 178.44 cm Trinh Tsai [facility] Work Phone: 08-06-2019 10:17-0500 Pulse (Heart Rate) 74 /min Trinh Tsai [facility] Work Phone: Comment on above: Pattern: Regular 08-06-2019 10:17-0500 Respiratory Rate 16 /min Trinh Tsai [facility] Work Phone: Comment on above: Pattern: Unlabored 04-09-2019 08:51-0400 BMI (Body Mass Index) 28.42 kg/m2 Trinh Tsai [facility] Work Phone: 04-09-2019 08:51-0400 Body Temperature 97.6 [degF] Trinh Tsai [facility] Work Phone: Comment on above: Method: Temporal 04-09-2019 08:51-0400 Body weight 90.49 kg Trinh Tsai [facility] Work Phone: 04-09-2019 08:51-0400 BP Diastolic 72 mm[Hg] Trinh Tsai [facility] Work Phone: Comment on above: Patient Position: Sitting; Cuff Location : Left Arm; Cuff Size: Standard 04-09-2019 08:51-0400 BP Systolic 118 mm[Hg] Trinh Tsai [employer] [facility] Work Phone: Comment on above: Patient Position: Sitting; Cuff Location : Left Arm; Cuff Size: Standard 04-09-2019 08:51-0400 BSA (Body Surface Area) 2.09 m2 Trinh Tsai [facility] Work Phone: 04-09-2019 08:51-0400 Height 178.44 cm Trinh Tsai [facility] Work Phone: 04-09-2019 08:51-0400 Pulse (Heart Rate) 68 /min Trinh Tsai [facility] Work Phone: Comment on above: Pattern: Regular 04-09-2019 08:51-0400 Respiratory Rate 16 /min Trinh Tsai [facility] Work Phone: Comment on above: Pattern: Unlabored 03-02-2019 08:04-0400 BMI (Body Mass Index) 28.42 kg/m2 Trinh Tsai [facility] Work Phone: 03-02-2019 08:04-0400 Body Temperature 97.8 [degF] Trinh Tsai [facility] Work Phone: Comment on above: Method: Temporal 03-02-2019 08:04-0400 Body weight 90.49 kg Trinh Tsai [facility] Work Phone: 03-02-2019 08:04-0400 BP Diastolic 70 mm[Hg] Trinh Tsai [facility] Work Phone: Comment on above: Patient Position: Sitting; Cuff Location : Left Arm; Cuff Size: Standard 03-02-2019 08:04-0400 BP Systolic 115 mm[Hg] Trinh Tsai [facility] Work Phone: Comment on above: Patient Position: Sitting; Cuff Location : Left Arm; Cuff Size: Standard 03-02-2019 08:04-0400 BSA (Body Surface Area) 2.09 m2 Trinh Tsai [facility] Work Phone: 03-02-2019 08:04-0400 Height 178.44 cm Trinh Tsai [facility] Work Phone: 03-02-2019 08:04-0400 Pulse (Heart Rate) 67 /min Trinh Tsai [facility] Work Phone: Comment on above: Pattern: Regular 03-02-2019 08:04-0400 Respiratory Rate 16 /min Trinh Tsai [facility] Work Phone: Comment on above: Pattern: Unlabored 11-03-2018 13:51-0400 BMI (Body Mass Index) 28.42 kg/m2 Trinh Tsai [facility] Work Phone: 11-03-2018 13:51-0400 Body Temperature 97.2 [degF] Trinh Tsai [facility] Work Phone: Comment on above: Method: Temporal 11-03-2018 13:51-0400 Body weight 90.49 kg Trinh Tsai [facility] Work Phone: 11-03-2018 13:51-0400 BP Diastolic 68 mm[Hg] Trinh Tsai [facility] Work Phone: Comment on above: Patient Position: Sitting; Cuff Location : Left Arm; Cuff Size: Standard 11-03-2018 13:51-0400 BP Systolic 118 mm[Hg] Trinh Tsai [facility] Work Phone: Comment on above: Patient Position: Sitting; Cuff Location : Left Arm; Cuff Size: Standard 11-03-2018 13:51-0400 BSA (Body Surface Area) 2.09 m2 Trinh Tsai [facility] Work Phone: 11-03-2018 13:51-0400 Height 178.44 cm Trinh Tsai [facility] Work Phone: 11-03-2018 13:51-0400 Pulse (Heart Rate) 78 /min Trinh Tsai [facility] Work Phone: Comment on above: Pattern: Regular 11-03-2018 13:51-0400 Respiratory Rate 16 /min Trinh Tsai [facility] Work Phone: Comment on above: Pattern: Unlabored 10-19-2017 09:56-0400 BMI (Body Mass Index) 28.64 kg/m2 Trinh Tsai [facility] Work Phone: 10-19-2017 09:56-0400 Body Temperature 98.8 [degF] Trinh Tsai [facility] Work Phone: Comment on above: Method: Temporal 10-19-2017 09:56-0400 Body weight 91.17 kg Trinh Tsai [facility] Work Phone: 10-19-2017 09:56-0400 BP Diastolic 70 mm[Hg] Trinh Tsai [facility] Work Phone: Comment on above: Patient Position: Sitting; Cuff Location : Left Arm; Cuff Size: Standard 10-19-2017 09:56-0400 BP Systolic 115 mm[Hg] Trinh Tsai [facility] Work Phone: Comment on above: Patient Position: Sitting; Cuff Location : Left Arm; Cuff Size: Standard 10-19-2017 09:56-0400 BSA (Body Surface Area) 2.1 m2 Trinh Tsai [facility] Work Phone: 10-19-2017 09:56-0400 Height 178.44 cm Trinh Tsai [facility] Work Phone: 10-19-2017 09:56-0400 Pulse (Heart Rate) 69 /min Trinh Tsai [facility] Work Phone: Comment on above: Pattern: Regular 10-19-2017 09:56-0400 Respiratory Rate 16 /min Trihn Tsai [facility] Work Phone: Comment on above: Pattern: Unlabored 10-19-2017 09:56-0400 Weight 91.17 kg Sandeep Guerrero [facility] Work Phone: 06-09-2017 11:35-0500 BMI (Body Mass Index) 28.07 kg/m2 Allison Duarterb [employer] [facility] Work Phone: 06-09-2017 11:35-0500 Body Temperature 97.9 [degF] Allison Gerladrb [employer] [facility] Work Phone: 06-09-2017 11:35-0500 Body weight 89.36 kg Allison Slarb [employer] [facility] Work Phone: 06-09-2017 11:35-0500 BP Diastolic 72 mm[Hg] Allison Slarb [employer] [facility] Work Phone: Comment on above: Patient Position: Sitting; Cuff Location : Left Arm; Cuff Size: Standard 06-09-2017 11:35-0500 BP Systolic 108 mm[Hg] Allison Geraldrb [employer] [facility] Work Phone: Comment on above: Patient Position: Sitting; Cuff Location : Left Arm; Cuff Size: Standard 06-09-2017 11:35-0500 BSA (Body Surface Area) 2.08 m2 Allison Geraldrb [employer] [facility] Work Phone: 06-09-2017 11:35-0500 Height 178.44 cm Allison Slarb [employer] [facility] Work Phone: 06-09-2017 11:35-0500 Pulse (Heart Rate) 61 /min Allison Helms [employer] [facility] Work Phone: Comment on above: Pattern: Regular 06-09-2017 11:35-0500 Pulse Oximetry 99 % Sandeep Fast [facility] Work Phone: Comment on above: Room air 06-09-2017 11:35-0500 Respiratory Rate 17 /min Allison Slarb [employer] [facility] Work Phone: Comment on above: Pattern: Unlabored 06-09-2017 11:35-0500 SaO2% (BldA) [Mass fraction] 99 % Allison Slarb [employer] [facility]; [facility] Work Phone: Comment on above: Room air 06-09-2017 11:35-0500 Weight 89.36 kg Sandeep Fast [facility] Work Phone: 05-23-2017 13:07-0500 BMI (Body Mass Index) 28.07 kg/m2 Morenita Cedillovenkateshjoseline [facility] Work Phone: 05-23-2017 13:07-0500 Body Temperature 97.7 [degF] Morenita Serenity [facility] Work Phone: Comment on above: Method: Temporal 05-23-2017 13:07-0500 Body weight 89.36 kg Morenita Cedillovenkateshjoseline [facility] Work Phone: 05-23-2017 13:07-0500 BP Diastolic 68 mm[Hg] Morenita Serenity [facility] Work Phone: Comment on above: Patient Position: Sitting; Cuff Location : Left Arm; Cuff Size: Large 05-23-2017 13:07-0500 BP Systolic 108 mm[Hg] Morenita Serenity [facility] Work Phone: Comment on above: Patient Position: Sitting; Cuff Location : Left Arm; Cuff Size: Large 05-23-2017 13:07-0500 BSA (Body Surface Area) 2.08 m2 Morenita Serenity [facility] Work Phone: 05-23-2017 13:07-0500 Height 178.44 cm Morenita Benton [facility] Work Phone: 05-23-2017 13:07-0500 Pulse (Heart Rate) 78 /min Morenita Serenity [facility] Work Phone: Comment on above: Pattern: Regular 05-23-2017 13:07-0500 Pulse Oximetry 98 % Sandeep Guerrero [facility] Work Phone: Comment on above: Room air 05-23-2017 13:07-0500 Respiratory Rate 17 /min Morenita Serenity [facility] Work Phone: Comment on above: Pattern: Unlabored 05-23-2017 13:07-0500 SaO2% (BldA) [Mass fraction] 98 % Morenita Benton [facility]; [facility] Work Phone: Comment on above: Room air 05-23-2017 13:07-0500 Weight 89.36 kg Sandeep Guerrero [facility] Work Phone: 11-09-2016 09:09-0400 BMI (Body Mass Index) 28.64 kg/m2 Morenita Serenity [facility] Work Phone: 11-09-2016 09:09-0400 Body Temperature 97.1 [degF] Morenita Serenity [facility] Work Phone: Comment on above: Method: Temporal 11-09-2016 09:090400 Body weight 91.17 kg Morenita Cedillocody [facility] Work Phone: 11-09-2016 09:09-0400 BP Diastolic 70 mm[Hg] Morenita Serenity [facility] Work Phone: Comment on above: Patient Position: Sitting; Cuff Location : Left Arm; Cuff Size: Standard 11-09-2016 09:09-0400 BP Systolic 102 mm[Hg] Morenita Cedillocody [facility] Work Phone: Comment on above: Patient Position: Sitting; Cuff Location : Left Arm; Cuff Size: Standard 11-09-2016 09:09-0400 BSA (Body Surface Area) 2.1 m2 Morenita Serenity [facility] Work Phone: 11-09-2016 09:09-0400 Height 178.44 cm Morenita Benton [facility] Work Phone: 11-09-2016 09:09-0400 Pulse (Heart Rate) 72 /min Morenita Serenity [facility] Work Phone: Comment on above: Pattern: Regular 11-09-2016 09:09-0400 Pulse Oximetry 97 % Sandeep Guerrero [facility] Work Phone: Comment on above: Room air 11-09-2016 09:09-0400 Respiratory Rate 16 /min Morenita Serenity [facility] Work Phone: Comment on above: Pattern: Unlabored 11-09-2016 09:09-0400 SaO2% (BldA) [Mass fraction] 97 % Morenita Benton [facility]; [facility] Work Phone: Comment on above: Room air 11-09-2016 09:09-0400 Weight 91.17 kg Sandeep Guerrero [facility] Work Phone: 09-06-2016 13:47-0400 BMI (Body Mass Index) 28.21 kg/m2 Morenita Benton [facility] Work Phone: 09-06-2016 13:47-0400 Body Temperature 97.8 [degF] Morenita Benton [facility] Work Phone: Comment on above: Method: Temporal 09-06-2016 13:47-0400 Body weight 89.81 kg Morenita Benton [facility] Work Phone: 09-06-2016 13:47-0400 BP Diastolic 82 mm[Hg] Morenita Benton [facility] Work Phone: Comment on above: Patient Position: Sitting; Cuff Location : Left Arm; Cuff Size: Standard 09-06-2016 13:47-0400 BP Systolic 124 mm[Hg] Morenita Benton [facility] Work Phone: Comment on above: Patient Position: Sitting; Cuff Location : Left Arm; Cuff Size: Standard 09-06-2016 13:47-0400 BSA (Body Surface Area) 2.08 m2 Morenita Benton [facility] Work Phone: 09-06-2016 13:47-0400 Height 178.44 cm Morenita Benton [facility] Work Phone: 09-06-2016 13:47-0400 Pulse (Heart Rate) 78 /min Morenita Benton [facility] Internal Medicine Work Phone: Comment on above: Pattern: Regular 09-06-2016 13:47-0400 Pulse Oximetry 97 % Sandeep Guerrero [facility] Work Phone: Comment on above: Room air 09-06-2016 13:47-0400 Respiratory Rate 16 /min Morenita Benton [facility] Work Phone: Comment on above: Pattern: Unlabored 09-06-2016 13:47-0400 SaO2% (BldA) [Mass fraction] 97 % Morenita Benton [facility]; [facility] Work Phone: Comment on above: Room air 09-06-2016 13:47-0400 Weight 89.81 kg Sandeep Guerrero [facility] Work Phone: 12-08-2015 14:21-0400 BMI (Body Mass Index) 29.78 kg/m2 Allison Slarb [employer] [facility] Work Phone: 12-08-2015 14:21-0400 Body Temperature 97.6 [degF] Allison Slarb [employer] [facility] Work Phone: 12-08-2015 14:21-0400 Body weight 94.8 kg Allison Slarb [employer] [facility] Work Phone: 12-08-2015 14:21-0400 BP Diastolic 80 mm[Hg] Allison Slarb [employer] [facility] Work Phone: Comment on above: Patient Position: Sitting; Cuff Location : Left Arm; Cuff Size: Standard 12-08-2015 14:210400 BP Systolic 118 mm[Hg] Allison Slarb [employer] [facility] Work Phone: Comment on above: Patient Position: Sitting; Cuff Location : Left Arm; Cuff Size: Standard 12-08-2015 14:21-0400 BSA (Body Surface Area) 2.13 m2 Allison Slarb [employer] [facility] Work Phone: 12-08-2015 14:21-0400 Height 178.44 cm Allison Slarb [employer] [facility] Work Phone: 12-08-2015 14:21-0400 Pulse (Heart Rate) 76 /min Allison Slarb [employer] [facility] Work Phone: Comment on above: Pattern: Regular 12-08-2015 14:21-0400 Pulse Oximetry 98 % Sandeep Guerrero [facility] Work Phone: Comment on above: Room air 12-08-2015 14:21-0400 Respiratory Rate 17 /min Allison Analia THOMSON [facility] Work Phone: Comment on above: Pattern: Unlabored 12-08-2015 14:21-0400 SaO2% (BldA) [Mass fraction] 98 % Allison Helms LPN [facility]; [facility] Work Phone: Comment on above: Room air 12-08-2015 14:21-0400 Weight 94.8 kg Sandeep Guerrero [facility] Work Phone: 11-06-2014 11:19-0400 BMI (Body Mass Index) 29.78 kg/m2 Morenita Benton [facility] Work Phone: 11-06-2014 11:19-0400 Body Temperature 98 [degF] Morenita Benton [facility] Work Phone: Comment on above: Method: Oral 11-06-2014 11:190400 Body weight 94.8 kg Morenita Benton [facility] Work Phone: 11-06-2014 11:19-0400 BP Diastolic 70 mm[Hg] Morenita Benton [facility] Work Phone: Comment on above: Patient Position: Sitting; Cuff Location : Left Arm; Cuff Size: Large 11-06-2014 11:19-0400 BP Systolic 124 mm[Hg] Morenita Benton [facility] Work Phone: Comment on above: Patient Position: Sitting; Cuff Location : Left Arm; Cuff Size: Large 11-06-2014 11:19-0400 BSA (Body Surface Area) 2.13 m2 Morentia Benton [facility] Work Phone: 11-06-2014 11:19-0400 Height 178.44 cm Morenita Benton [facility] Work Phone: 11-06-2014 11:19-0400 Pulse (Heart Rate) 60 /min Morenita Benton [facility] Work Phone: Comment on above: Pattern: Regular 11-06-2014 11:19-0400 Respiratory Rate 16 /min Morenita Benton [facility] Work Phone: Comment on above: Pattern: Unlabored 11-06-2014 11:19-0400 Weight 94.8 kg Sandeep Guerrero [facility] Work Phone: 08-28-2014 11:00-0400 BMI (Body Mass Index) 30.34 kg/m2 Morenita Benton [facility] Work Phone: 08-28-2014 11:00-0400 Body Temperature 97.8 [degF] Morenita Benton [facility] Work Phone: 08-28-2014 11:00-0400 Body weight 96.62 kg Morenita Benton [facility] Work Phone: 08-28-2014 11:00-0400 BP Diastolic 86 mm[Hg] Morenita Benton [facility] Work Phone: Comment on above: Patient Position: Sitting; Cuff Location : Left Arm; Cuff Size: Large 08-28-2014 11:00-0400 BP Systolic 116 mm[Hg] Morenita Benton [facility] Work Phone: Comment on above: Patient Position: Sitting; Cuff Location : Left Arm; Cuff Size: Large 08-28-2014 11:00-0400 BSA (Body Surface Area) 2.15 m2 Morenita Benton [facility] Work Phone: 08-28-2014 11:00-0400 Height 178.44 cm Morenita Benton [facility] Work Phone: 08-28-2014 11:00-0400 Pulse (Heart Rate) 74 /min Morenita Benton [facility] Medicine Work Phone: Comment on above: Pattern: Regular 08-28-2014 11:00-0400 Respiratory Rate 16 /min Morenita Benton [facility] Work Phone: Comment on above: Pattern: Unlabored 08-28-2014 11:00-0400 Weight 96.62 kg Sandeep Shukri [facility] Work Phone: 07-26-2014 09:16-0500 Body Temperature 98.3 [degF] Trinh Tsai [facility] Work Phone: Comment on above: Method: Oral 07-26-2014 09:16-0500 Body weight 96.16 kg Trinh Tsai [facility] Work Phone: 07-26-2014 09:16-0500 BP Diastolic 78 mm[Hg] Trinh Tsai [facility] Work Phone: Comment on above: Patient Position: Sitting; Cuff Location : Left Arm; Cuff Size: Standard 07-26-2014 09:16-0500 BP Systolic 122 mm[Hg] Trinh Tsai [facility] Work Phone: Comment on above: Patient Position: Sitting; Cuff Location : Left Arm; Cuff Size: Standard 07-26-2014 09:16-0500 Pulse (Heart Rate) 72 /min Trinh Tsai [facility] Work Phone: Comment on above: Pattern: Regular 07-26-2014 09:16-0500 Respiratory Rate 16 /min Trinh Tsai [facility] Work Phone: Comment on above: Pattern: Unlabored 07-26-2014 09:16-0500 Weight 96.16 kg Sandeepcindi Guerrero [facility] Internal Medicine Work Phone: Encounters Encounter Date Encounter Type Care Provider Facility Start: 04-23-2025 ambulatory Sandeep Guerrero Facility:[facility] Start: 04-16-2025 ambulatory Sandeep Fast Facility:[facility] Start: 04-09-2025 ambulatory Sandeep Fast Facility:[facility] Start: 12-04-2024 End: 12-04-[address] Mahendra Nuñez MD -[facility] Start: 12-04-2024 End: 12-04-[address] Sandeep Guerrero DO Work Phone: [facility] Work Phone: Start: 05-23-2024 End: 05-23-2024 ambulatory Sandeep Fast Facility:[facility] Start: 05-18-2024 End: 05-18-2024 ambulatory Sandeep Fast Facility:[facility] Start: 04-15-2024 End: 04-15-2024 Emergency department patient visit Benvalery Moise Facility:[facility] Start: 08-29-2023 End: 08-29-2023 ambulatory [facility] Work Phone: Start: 08-29-2023 End: 08-29-2023 Patient encounter procedure [facility], [place] Work Phone: Start: 08-03-2023 End: 08-04-2023 ambulatory SANDEEP A [facility] Start: 08-03-2023 End: 08-04-2023 Encounter for general adult medical examination without abnormal findings [facility] Start: 08-03-2023 End: 08-03-2023 Patient encounter status [address] Work Phone: Start: 08-03-2023 End: 08-03-2023 Subsequent hospital visit by physician Timothy [address] Comment on above: Wellness examination Start: 05-13-2023 End: 05-13-2023 ambulatory [facility] Work Phone: Start: 05-13-2023 End: 05-13-2023 Patient encounter procedure [facility] Work Phone: Start: 03-23-2023 End: 03-23-2023 Phone Encounter Sandeep Fast DO Work Phone: [facility] Start: 02-23-2023 End: 02-23-2023 Patient encounter procedure [facility], [facility] Work Phone: Start: 02-18-2023 End: 02-18-2023 Phone Encounter Sandeep Fast DO Work Phone: [facility] Start: 02-16-2023 End: 02-16-2023 Patient encounter procedure Sandeep Fast DO Work Phone: [facility] Start: 01-28-2023 End: 01-18-2023 Phone Encounter Sandeep Fast DO Work Phone: [facility] Start: 01-27-2023 End: 01-27-2023 Patient encounter procedure [facility] Work Phone: Start: 01-24-2023 End: 01-25-2023 Emergency department patient visit [facility] Work Phone: Start: 10-13-2022 ambulatory Sandeep Puente Fast DO Compre[facility] Internal Med Start: 10-12-2022 End: 10-12-2022 Emergency department patient visit Dr. Sandeep Guerrero Work Phone: [facility] Start: 07-26-2022 Non-patient / Non-visit Dr. Robison Fast Work Phone: [facility] Start: 07-26-2022 End: 07-26-[address] Sandeep Guerrero Work Phone: [facility] Work Phone: Start: 07-26-2022 End: 07-26-[address] Sandeep Guerrero Work Phone: [facility] Services/Neurology Start: 05-12-2022 End: 05-12-2022 ambulatory [facility] Work Phone: Start: 05-12-2022 End: 05-12-2022 Patient encounter procedure [facility] Start: 02-18-2022 End: 02-18-2022 Admission to same day surgery center [facility] Start: 02-18-2022 End: 02-18-2022 ambulatory [facility] Work Phone: Start: 02-12-2022 End: 02-12-2022 ambulatory [facility] Work Phone: Start: 02-12-2022 End: 02-12-2022 Patient encounter procedure [facility], Specimen Start: 02-04-2022 End: 02-04-2022 Admission to same day surgery center [facility] Start: 02-04-2022 End: 02-04-2022 ambulatory [facility] Work Phone: Start: 01-29-2022 End: 01-29-2022 Emergency department patient visit [facility] Start: 01-27-2022 End: 01-27-2022 Phone Encounter Sandeep Fast DO Work Phone: [facility] Start: 01-25-2022 End: 01-25-2022 Emergency department patient visit [facility] Start: 11-27-2021 End: 11-27-2021 Phone Encounter Sandeep Fast DO Work Phone: [facility] Start: 11-26-2021 End: 11-26-2021 Patient encounter procedure [facility] Start: 11-25-2021 Registered [facility] Start: 11-17-2021 End: 02-12-2022 Office outpatient visit 25 minutes Sandeep Fast DO Work Phone: [facility] Start: 11-17-2021 Review Sandeep Fast DO Work Phone: [facility] Start: 08-26-2021 Review Sandeep Fast DO Work Phone: [facility] Start: 07-29-2021 End: 02-16-2023 Patient encounter procedure Sandeep A Fast DO Work Phone: [facility]; [facility] Work Phone: Start: 07-29-2021 Review Sandeep Fast DO Work Phone: [facility] Start: 06-10-2021 End: 06-10-2021 Office outpatient visit 15 minutes Sandeep Fast DO Work Phone: [facility] Start: 06-03-2021 End: 06-18-2021 Office outpatient visit 15 minutes Sandeep Fast DO Work Phone: [facility] Start: 06-03-2021 Review Sandeep Fast DO Work Phone: [facility] Start: 06-01-2021 End: 06-15-2021 Office outpatient visit 15 minutes Sandeep Fast DO Work Phone: [facility] Start: 05-27-2021 End: 05-27-2021 Phone Encounter Sandeep Fast DO Work Phone: [facility] Start: 05-26-2021 End: 05-28-2021 Office outpatient visit 25 minutes Sandeep Fast DO Work Phone: [facility] Start: 11-12-2020 End: 11-17-2020 Office outpatient visit 25 minutes Sandeep Fast DO Work Phone: [facility] Start: 11-12-2020 Review Sandeep Fast DO Work Phone: [facility] Start: 06-02-2020 End: 06-04-2020 Office outpatient visit 15 minutes Sandeep Fast [facility] Start: 05-26-2020 End: 06-01-2020 Office outpatient visit 25 minutes Sandeep Fast [facility] Start: 08-06-2019 End: 08-06-2019 Office outpatient visit 25 minutes Sandeep Fast [facility] Start: 04-09-2019 Review Sandeep Fast [facility] Start: 04-09-2019 End: 02-16-2023 Patient encounter procedure Sandeep Fast DO Work Phone: [facility] Start: 03-07-2019 End: 03-07-2019 Phone Encounter Sandeep Fast [facility] Start: 03-02-2019 End: 03-05-2019 Office outpatient visit 5 minutes Sandeep Fast [facility] Start: 11-03-2018 End: 11-07-2018 Office outpatient visit 25 minutes Sandeep Fast [facility] Start: 10-19-2017 End: 10-19-2017 Office outpatient visit 25 minutes Sandeep Fast [facility] Start: 06-17-2017 End: 06-17-2017 Phone Encounter Sandeep Fast [facility] Start: 06-09-2017 End: 06-09-2017 Office outpatient visit 15 minutes Sandeep Fast [facility] Start: 05-23-2017 End: 05-23-2017 Office outpatient visit 25 minutes Sandeep Fast [facility] Start: 11-12-2016 End: 11-12-2016 Phone Encounter Sandeep Guerrero [facility] Start: 11-09-2016 End: 11-26-2016 Office outpatient visit 25 minutes Sandeep Guerrero [facility] Start: 11-09-2016 End: 11-26-2016 Patient encounter procedure Sandeep Fast DO Work Phone: [facility] Start: 09-06-2016 End: 09-06-2016 Office outpatient visit 25 minutes Sandeepcindi Guerrero [facility] Start: 12-09-2015 End: 12-09-2015 Phone Encounter Sandeep Guerrero [facility] Start: 12-08-2015 End: 12-08-2015 Office outpatient visit 15 minutes Sandeepcindi Guerrero [facility] Start: 11-06-2014 End: 11-07-2014 Office outpatient visit 25 minutes Sandeep Guerrero [facility] Start: 08-28-2014 End: 08-29-2014 Office outpatient visit 25 minutes Sandeep Guerrero [facility] Start: 07-26-2014 End: 07-29-2014 Office outpatient visit 25 minutes Sandeepcindi Guerrero [facility] Patient encounter procedure Sandeep A Fast DO Work Phone: [facility]; [facility] Work Phone: Patient encounter procedure Trinh Tsai [facility]; [facility] Work Phone: Patient encounter procedure Sandeep A Fast DO Work Phone: [facility]; [facility] Work Phone: Patient encounter procedure Sandeep A Fast DO Work Phone: [facility]; [facility] Work Phone: Procedures Date Procedure Procedure Detail Performing Clinician Start: 08-03-2023 CT CARDIAC SCORING WO IV CONTRAST SANDEEP FAST Start: 08-03-2023 Ct heart no contrast quant eval coronry calcium Sandeep A Fast DO Work Phone: Start: 05-13-2023 Screening mammography Start: 02-23-2023 US scan of thyroid Start: 02-23-2023 End: 02-23-2023 Thyroid Procedure Note: See Note; NOTES: [facility] Imaging Services [facility] [place] [address] Thyroid MR#: [id number] Acct: [id number] Name: KERWIN STARKS Rep #: [id number] : 1970 F 52 From: Jose Flores DO PCP: Dr. Sandeep Guerrero DO Status: REG CLI Study: Thyroid Date of Exam: 02/23/23 Exam# [id number] Ordering Dr: Sandeep Guerrero DO INDICATION: thyroid nodule EXAMINATION: Ultrasound US Thyroid (eg thyroid, parathyroid, parotid) TECHNIQUE: Oconnor scale and color doppler imaging was performed of the thyroid gland. COMPARISON: November 26, 2021 FINDINGS: RIGHT THYROID LOBE: 5.9 x 2.1 x 2.1 cm. Heterogeneous echotexture with normal vascularity. [Hypoechoic 7 x 8 x 5 mm nodule similar to previous study. LEFT THYROID LOBE: 5.3 x 2 x 1.8 cm. Heterogeneous echotexture with normal vascularity. [1.1 x 0.8 x 0.3 cm predominantly hypoechoic nodule, similar to previous study. Possibly new 1 x 0.5 x 0.9 cm hypoechoic nodule. ISTHMUS: 3.9 mm. No thyroid nodules are present. US/Thyroid IMPRESSION: Heterogeneous thyroid lobes with hypoechoic exogenous nodules bilaterally. Electronically Signed: Jose Flores DO at 20:17 EDT Reading Location ID and State: [address] [place] [address] Tel [phone], Service support , CC: Dr. Sandeep Guerrero DO Developmental Services Worker: Signed Sandeep Guerrero DO Work Phone: Start: 01-27-2023 End: 01-27-2023 Abdomen/Pelvis without Cont Procedure Note: See Note; NOTES: [facility] Imaging Services [address] [place] [address] Abdomen/Pelvis without Cont MR#: [id number] Acct: [id number] Name: KERWIN STARKS Rep #: [id number] : 1970 F 52 From: Laila Nieto PCP: Dr. Sandeep Guerrero, DO Status: REG CLI Study: Abdomen/Pelvis without Cont Date of Exam: 01/11 01/02 Exam# [id number] Ordering Dr: Keerthi Barnes MD EXAM: CT Abdomen And Pelvis W/O Contrast Injection HISTORY: KIDNEY STONE TECHNIQUE: Routine protocol CT abdomen and pelvis. IV Contrast: None.. Oral contrast: None. RADIATION DOSAGE (If Supplied By Facility): CTDIvol = ( 9.70 ) mGy, DLP = ( 508.89 ) mGycm Individualized dose optimization techniques were used for this CT. COMPARISON: CT abdomen and pelvis 01/25/2022. LIMITATIONS: None. FINDINGS: LOWER CHEST: Included lung bases are clear. Small hiatal hernia. LIVER: Grossly unremarkable. GALLBLADDER AND BILIARY TREE: Grossly unremarkable. PANCREAS: Grossly unremarkable. SPLEEN: Grossly unremarkable. ADRENAL GLANDS: Grossly unremarkable. KIDNEYS AND URETERS: Small calculi in both kidneys. No hydronephrosis. There is a 1.8 cm exophytic structure left kidney upper pole not completely characterized, appears similar to prior PERITONEUM: No free air. Small amount of free fluid in the pelvis. BOWEL: No bowel obstruction. Moderate amount of stool throughout the colon. APPENDIX: Visualized and unremarkable. No evidence of acute appendicitis. VESSELS: Abdominal aorta is normal caliber. REPRODUCTIVE ORGANS: Grossly unremarkable URINARY BLADDER: Minimally distended. ABDOMINAL WALL: Unremarkable. BONES: No acute abnormalities. CT/Abdomen/Pelvis without Cont IMPRESSION: No acute findings. Bilateral nephrolithiasis without hydronephrosis. Left renal lesion 1.8 cm not completely characterized and not significantly changed. Recommend follow-up imaging renal ultrasound , MRI or CT abdomen and pelvis without and with IV contrast one year. Electronically Signed: Laila Blanca MD at 18:23 EDT , CC: Dr. Sandeep Guerrero, DO; Dr. Keerthi Barnes MD Developmental Services Worker: Signed Keerthi Barnes Work Phone: Start: 01-27-2023 CT of abdomen and pelvis without contrast Start: 01-25-2023 End: 01-25-2023 Emergency Department Summary Procedure Note: See Note; NOTES: [facility] Department [address] [place] [address] Emergency Department Summary 01/25/23 MR#: [id number] Acct: [id number] Name: KERWIN STARKS Rep #: [id number] : 1970 52 From: Ridge Bates DO PCP: Dr. Sandeep Guerrero DO Status:DEP ER Location: ED HPI History of Present Illness Chief Complaint: Flank Pain Informant: patient and spouse/S.O. Narrative Narrative: Patient is a 52-year-old female with past medical history of hypothyroidism and previous kidney stone roughly 1 year ago that required stenting and lithotripsy. She states that over the last 1 to 2 days she has been having intermittent left-sided flank pain. She denies any recent trauma or excessive activity. She denies any fevers chills or dysuria. She states that today the pain worsened and it does feel similar nature to her previous history of stone and therefore comes in for evaluation. [facility] Medical History Alcohol use Anxiety Back pain Fatty liver GERD (gastroesophageal reflux disease) Hypothyroid Low iron Non-smoker Renal calculus, right Home Medications duloxetine 60 mg capsule,delayed release 60 mg PO DAILY anxiety 08/22/19 [History Last Taken 02/04/22] levothyroxine 50 mcg tablet 50 mcg PO DAILY thyroid 08/22/19 [History Last Taken 02/04/22] trazodone 50 mg tablet 50 mg PO QHS sleep 08/22/19 [History Last Taken Unknown] ibuprofen 600 mg tablet 600 mg PO Q8H PRN PRN pain #20 tabs 01/25/22 [Rx Last Taken Unknown] ondansetron 4 mg disintegrating tablet 4 mg PO Q8H PRN nausea and vomiting #10 tabs 01/25/22 [Rx Last Taken Unknown] oxybutynin chloride 10 mg tablet,extended release 24 hr 10 mg PO DAILY 30 days #30 tabs 02/04/22 [Rx Last Taken Unknown] oxycodone-acetaminophen 5 mg-325 mg tablet 2 tab PO Q8H PRN PRN Pain 7 days #20 tabs 02/04/22 [Rx Last Taken Unknown] cephalexin 500 mg capsule 500 mg PO Q12 post-operative 3 days #6 CAPSULES 02/18/22 [Rx Last Taken Unknown] oxycodone-acetaminophen 5 mg-325 mg tablet 2 tab PO Q8H PRN PRN Pain 3 days #10 tabs 02/18/22 [Rx Last Taken Unknown] ciprofloxacin HCl 500 mg tablet (Cipro) 500 mg PO BID 7 days #14 tabs 01/25/23 [Rx Last Taken Unknown] ketorolac 10 mg tablet 10 mg PO Q6H PRN pain 5 days #20 tabs 01/25/23 [Rx Last Taken Unknown] ondansetron 4 mg disintegrating tablet 4 mg PO TID PRN nausea and vomiting #21 tabs 01/25/23 [Rx Last Taken Unknown] oxycodone-acetaminophen 5 mg-325 mg tablet (Percocet) 1 tab PO Q6H PRN pain 5 days #20 tabs 01/25/23 [Rx Last Taken Unknown] tamsulosin 0.4 mg capsule (Flomax) 0.4 mg PO DAILY 14 days #14 caps 01/25/23 [Rx Last Taken Unknown] Allergy/AdvReac Type Severity Reaction Status Date / Time No Known Allergies Allergy Verified 01/24/23 21:09 Family History Mother Heart disease Thyroid disorder Breast cancer Aunt Breast cancer Surgical History History of lithotripsy History of removal of cyst Social History Smoking Status: Never smoker ROS ROS ED Constitutional Constitutional ED: Denies chills or fever(s) ENT ENT ED: Denies sore throat Cardiovascular Cardiovascular: Denies chest pain Respiratory/Chest Respiratory/Chest: Denies cough or dyspnea Gastrointestinal Gastrointestinal: Reports abdominal pain and nausea; Denies diarrhea or vomiting Genitourinary Genitourinary ED: Reports other Details: Positive left flank pain ; Denies dysuria Musculoskeletal Musculoskeletal: Reports back pain; Denies myalgias Integumentary Denies rash Neurologic Neurologic: Denies headache(s) Hematologic/Lymphatic Hematologic/Lymphatic: Denies easy bleeding or easy bruising EXAM Physical Exam Const Vital Signs: 01/24/23 21:09 01/24/23 23:09 Temperature 97.8 F Temperature Source Temporal Pulse Rate 77 Respiratory Rate 16 16 Blood Pressure 149/83 H Blood Pressure Mean 105 Pulse Ox 98 Positive well nourished and well developed General Appearance ED: well developed HEENT HEENT Narrative: Normocephalic atraumatic Eyes PERRL and EOMs intact bilaterally Neck supple Resp normal respiratory effort and clear to auscultation bilaterally Cardio regular rate and regular rhythm Rate: other Other Details: Radial pulses are plus 2 out of 4 bilaterally are equal and symmetric GI non-distended GI Narrative: Mild pain with palpation in the left mid to upper abdomen without voluntary guarding or rigidity. No pulsatile mass or fluid wave Auscultation: normoactive bowel sounds Palpation: soft Back/Spine Back/Spine Narrative: Positive left CVA pain with palpation Extremity normal to inspection Neuro oriented x3 and CN's II-XII intact bilaterally Sensorium / Orientation: alert Motor Exam: strength 5/5 throughout Psych mental status grossly normal Skin no rashes or lesions noted Skin Narrative: No overlying soft tissue changes to suggest trauma or infection MDM MDM MDM Narrative Medical decision making narrative: Patient presented to the ER with stable vitals and reported sharp flank pain wrapping towards her left groin most consistent with kidney stone. Differential diagnosis is for kidney stone versus pyelonephritis versus lumbosacral strain versus shingles. Patient does not have any type of soft tissue changes suggest shingles and urine sample shows slight bacteria but no white blood cells therefore this could be contamination versus normal rafal versus infection. The patient did a CT scan roughly 1 year ago which showed a small stone in the left kidney. With the patient's history and exam and blood on urination this is most likely renal colic secondary to the previous stone noted a year ago. At this time she has had resolution of pain she does not have NATALIE or urosepsis and therefore patient can be discharged home and follow-up with urology on an outpatient basis History Record Review Discussion w/independent historian: Patient and Significant other Lab Data Attestation: I reviewed the patient's lab results. Labs: Laboratory Results - last 24 hr 01/24/23 22:17 WBC 12.8 H RBC 5.15 Hgb 11.4 L Hct 39.1 MCV 75.9 L MCH 22.1 L MCHC 29.2 L RDW Std Deviation 48.6 H RDW Coeff of Armando 18.1 H Plt Count 337 MPV 10.2 Immature Gran % (Auto) 0.500 Neut % (Auto) 66.4 Lymph % (Auto) 23.3 Real % (Auto) 6.9 Eos % (Auto) 2.3 Baso % (Auto) 0.6 Absolute Neuts (auto) 8.5 H Absolute Lymphs (auto) 2.98 Nucleated RBC % 0 Sodium 138 Potassium 3.5 Chloride 104 Carbon Dioxide 29.0 Anion Gap 5 BUN 10 Creatinine 0.78 Estim Creat Clear Calc 92.27 Est GFR (MDRD) Af Amer 100 Est GFR (MDRD) Non-Af 83 BUN/Creatinine Ratio 12.8 Glucose 110 H Calcium 8.8 Total Bilirubin 0.40 AST 13 L ALT 29 Alkaline Phosphatase 78 Total Protein 7.8 Albumin 3.5 Globulin 4.3 H Albumin/Globulin Ratio 0.8 L Urine Color Yellow Urine Clarity Clear Urine pH 7.0 Ur Specific [place] 1.015 Urine Protein 15 H Urine Glucose (UA) Normal Urine Ketones 5 H Urine Occult Blood 25 H Urine Nitrite Negative Urine Bilirubin Negative Urine Urobilinogen 4 H Ur Leukocyte Esterase 100 H Urine RBC 0-5 SEEN Urine WBC 0-5 SEEN Ur Squamous Epith Cells 0-5 SEEN Urine Bacteria 1+ Urine Mucus 0 SEEN Discharge Plan Triage Chief Complaint: Flank Pain ED Provider: Ridge Bates Dx/Rx/DC Orders Clinical Impression: Renal colic, Kidney stone, Hypothyroid Instructions: ED Kidney Stone w/ Colic Prescriptions: New ciprofloxacin HCl [Cipro] 500 mg tablet 500 mg PO BID 7 Days Qty: 14 0RF oxycodone-acetaminophen [Percocet] 5-325 mg tablet 1 tab PO Q6H PRN (Reason: pain) 5 Days Qty: 20 0RF ketorolac 10 mg tablet 10 mg PO Q6H PRN (Reason: pain) 5 Days Qty: 20 0RF tamsulosin [Flomax] 0.4 mg capsule 0.4 mg PO DAILY 14 Days Qty: 14 0RF ondansetron 4 mg tablet,disintegrating 4 mg PO TID PRN (Reason: nausea and vomiting) Qty: 21 0RF No Action trazodone 50 mg tablet 50 mg PO QHS levothyroxine 50 mcg tablet 50 mcg PO DAILY duloxetine 60 mg capsule,delayed release(DR/EC) 60 mg PO DAILY Patient Comments: TAKE ONE CAPSULE BY MOUTH EVERY MORNING WITH FOOD ibuprofen 600 mg tablet 600 mg PO Q8H PRN PRN (Reason: pain) Qty: 20 0RF ondansetron 4 mg tablet,disintegrating 4 mg PO Q8H PRN (Reason: nausea and vomiting) Qty: 10 0RF oxycodone-acetaminophen 5-325 mg tablet 2 tab PO Q8H PRN PRN (Reason: Pain) 7 Days Qty: 20 0RF oxybutynin chloride 10 mg tablet extended release 24hr 10 mg PO DAILY 30 Days Qty: 30 0RF oxycodone-acetaminophen [oxycodone-acetaminophen] 5-325 mg tablet 2 tab PO Q8H PRN PRN (Reason: Pain) 3 Days Qty: 10 0RF cephalexin [cephalexin] 500 mg capsule 500 mg PO Q12 3 Days Qty: 6 0RF Primary Care Provider: Sandeep Guerrero Referrals: Sandeep Guerrero DO [Primary Care Provider] - Keerthi Barnes MD [Med Staff - Active Staff] - Activity Restrictions/Additional Instructions: Please follow-up with urology to discuss need for lithotripsy and/or stent placement for your stone. If you develop a fever over 100.4 or your pain is not controlled with the prescribed medications please return for repeat evaluation Disposition Disposition: Home, Self Care Discharge Date/Time: 01/25/23 00:34 What to do if you have Problems For any increased pain, shortness of breath, bleeding, nausea or vomiting, chest pain, or any unexpected problems, contact your Primary Care Provider. Call [facility] ([phone]) or report to the closest Emergency Room. Call 911 if necessary. 01/25/23 0202 <Electronically signed by Ridge Bates DO> Cosigner Signature (if applicable): CC: Dr. Sandeep Guerrero DO Signed Sandeep Guerrero DO Work Phone: Start: 01-24-2023 Urine culture Start: 10-12-2022 End: 10-12-2022 Chest 1 View (Portable) Procedure Note: See Note; NOTES: [facility] Imaging Services [address] [place] [address] Chest 1 View (Portable) MR#: [id number] Acct: [id number] Name: KERWIN STARKS Rep #: [id number] : 1970 F 52 From: Edwin Thakkar MD PCP: Dr. Sandeep Guerrero DO Status: PRE ER Study: Chest 1 View (Portable) Date of Exam: 10/12/22 Exam# [id number] Ordering Dr: Provider,Ed P. INDICATION: Chest pain EXAMINATION/TECHNIQUE: X-RAY - XR Chest 1 View COMPARISON: 05/26/2020 FINDINGS: LUNGS: No consolidation, edema or effusion. No pneumothorax. MEDIASTINUM AND CARDIOVASCULAR STRUCTURES: Cardiac silhouette not enlarged. Central airways and mediastinal contour are unremarkable. RAD/Chest 1 View (Portable) IMPRESSION: No radiographic evidence of acute cardiopulmonary disease. Electronically Signed: Edwin Thakkar MD at 19:00 EDT Reading Location ID and State: [facility] / [place] Tel , Service support , CC: Dr. Sandeep Guerrero DO; ED PHYSICIAN PROVIDER Developmental Services Worker: Signed Sandeep Guerrero DO Work Phone: Start: 10-12-2022 Plain chest X-ray Dr. Sandeep Guerrero Work Phone: Start: 10-12-2022 End: 10-12-2022 Emergency Department Summary Procedure Note: See Note; NOTES: [facility] Medical Records Department [address] [place] [address] Emergency Department Summary 10/12/22 MR#: [id number] Acct: [id number] Name: KERWIN STARKS Rep #: [id number] : 1970 52 From: Nghia Tran MD PCP: Dr. Sandeep Guerrero, DO Status:REG ER Location: ED HPI History of Present Illness Chief Complaint: Chest Pain Narrative Narrative: 52-year-old female who denies significant past medical history presents with right-sided neck pain radiating down into her right chest and sometimes down her right arm. She states this has been ongoing for the last few weeks, but more intermittently. Yesterday, she began having the pain radiating from her neck and trapezial area down into her chest. She denies any nausea or vomiting, no shortness of breath or diaphoresis. She was at work today, midmorning, greater than 6 hours ago when she started having more consistent pain. In the past it could last around 10 minutes. She called her who is out of town to ask if she should apply heat or ice, as she felt it was more muscular. She ended up calling her daughter who is a cardiac care nurse who "freaked out" and had her come to the emergency department for evaluation for cardiac chest pain. [facility] Medical History Alcohol use Anxiety Back pain Fatty liver GERD (gastroesophageal reflux disease) Hypothyroid Low iron Non-smoker Renal calculus, right Home Medications duloxetine 60 mg capsule,delayed release 60 mg PO DAILY anxiety 08/22/19 [History Last Taken 02/04/22] levothyroxine 50 mcg tablet 50 mcg PO DAILY thyroid 08/22/19 [History Last Taken 02/04/22] trazodone 50 mg tablet 50 mg PO QHS sleep 08/22/19 [History Last Taken Unknown] ibuprofen 600 mg tablet 600 mg PO Q8H PRN PRN pain #20 tabs 01/25/22 [Rx Last Taken Unknown] ondansetron 4 mg disintegrating tablet 4 mg PO Q8H PRN nausea and vomiting #10 tabs 01/25/22 [Rx Last Taken Unknown] oxybutynin chloride 10 mg tablet,extended release 24 hr 10 mg PO DAILY 30 days #30 tabs 02/04/22 [Rx Last Taken Unknown] oxycodone-acetaminophen 5 mg-325 mg tablet 2 tab PO Q8H PRN PRN Pain 7 days #20 tabs 02/04/22 [Rx Last Taken Unknown] cephalexin 500 mg capsule 500 mg PO Q12 post-operative 3 days #6 CAPSULES 02/18/22 [Rx Last Taken Unknown] oxycodone-acetaminophen 5 mg-325 mg tablet 2 tab PO Q8H PRN PRN Pain 3 days #10 tabs 02/18/22 [Rx Last Taken Unknown] Allergy/AdvReac Type Severity Reaction Status Date / Time No Known Allergies Allergy Verified 10/12/22 18:30 Family History Mother Heart disease Thyroid disorder Breast cancer Aunt Breast cancer Surgical History History of lithotripsy History of removal of cyst Social History Smoking Status: Never smoker ROS ROS ED ROS Narrative Constitutional: No fever, no chills. HEENT: No sore throat. Positive neck pain with radiation to right arm, and towards right chest. No loss of vision. No rhinorrhea. Cardiovascular: Right-sided chest pain. No palpitations. No pedal edema. Respiratory: No cough, no shortness of breath. Abdominal: No abdominal pain. No nausea. No vomiting. Genitourinary: No dysuria. No hematuria. Musculoskeletal: No myalgias. No arthralgias. Neurologic: No headaches. No dizziness. No lightheadedness. Skin: No rash. No change in color. Psychiatric: No depression. No anxiety. EXAM Physical Exam Narrative Exam Narrative: Afebrile. Vital signs noted. HEENT: Normocephalic. Atraumatic. PERRL, EOMI. Neck soft and supple. No point tenderness or step off. Cardiovascular: Regular rate and rhythm. No murmurs, rubs, or gallops appreciated. Respiratory: No tachypnea. Lungs clear to auscultation bilaterally. Gastrointestinal: Abdomen soft, nontender, with normoactive bowel sounds. No rebound or guarding. Neurological: Awake. Alert. Nonfocal, nonlateralizing. Skin: No rash. Normal color. No pallor. Musculoskeletal: No pedal edema. Full range of motion extremities. Const Vital Signs: 10/12/22 18:28 10/12/22 18:35 10/12/22 18:42 Temperature 98 F Temperature Source Temporal Pulse Rate 73 Respiratory Rate 18 Respiratory Effort Normal Non-Labored Blood Pressure 166/74 H Blood Pressure Mean 104 Pulse Ox 100 Oxygen Delivery Method Room Air Room Air Heart Score History: Slightly/Non-Suspicious ECG: Normal Age: >45 - <65 years Risk Factors: No Risk Factors Score: 1 MDM MDM MDM Narrative Medical decision making narrative: In the differential diagnosis is acute coronary syndrome/cardiac chest pain versus cervical radiculopathy. I have low suspicion for pulmonary embolism as she is not tachycardic and her pulse ox is 100% on room air. She denies any DVT or PE risk factors. Additionally, I have lower suspicion for acute coronary syndrome as she has not necessarily having chest pain radiating to her neck, but the opposite. EKG was obtained and interpreted by myself which demonstrates sinus rhythm at 77 bpm with PACs, but no acute ST changes. No STEMI. This helps rule out an acute STEMI or cardiac pain. Chest pain protocol orders were entered. I do not feel that she needs serial troponins as her chest pain has been ongoing for greater than 6 hours. I did add a CT of the cervical spine to look for spinal stenosis as an explanation for her cervical radiculopathy symptoms. I reviewed her laboratory work, she has slightly elevated leukocytosis of 12.6, hemoglobin 11.2 with slight anemia, hematocrit 37.1, normal platelet count of 338. Electrolyte panel is grossly unremarkable with normal sodium of 137, normal potassium of 3.6, BUN normal at 10 and creatinine normal at 0.78. High-sensitivity troponin is 5. This is greater than a 6-hour troponin. I do not feel that she requires serial troponin. Chest x-ray reviewed by myself and interpreted shows no acute process. I reviewed the radiology report which confirms this. CT of the C-spine shows no critical lesions or stenosis, no fracture on review of the radiology report. At this point in time, I feel she can be discharged safely home with follow-up. Repeat examination at approximately 2009 shows her resting comfortably using her cellular telephone. She is feeling improved. She will follow-up with her primary care physician. Return instructions to the emergency department were reviewed. Disposition is discharged home in stable condition. History Record Review Discussion w/independent historian: Patient Additional record(s) reviewed:: Prior ED visit Lab Data Attestation: I reviewed the patient's lab results. Labs: Laboratory Results - last 24 hr 10/12/22 10/12/22 18:43 18:43 WBC 12.6 H RBC 4.82 Hgb 11.2 L Hct 37.1 MCV 77.0 L MCH 23.2 L MCHC 30.2 L RDW Std Deviation 50.3 H RDW Coeff of Armando 18.2 H Plt Count 338 MPV 10.6 Immature Gran % (Auto) 0.400 Neut % (Auto) 62.2 Lymph % (Auto) 27.4 Real % (Auto) 8.0 Eos % (Auto) 1.4 Baso % (Auto) 0.6 Absolute Neuts (auto) 7.8 H Absolute Lymphs (auto) 3.45 Nucleated RBC % 0 Sodium 137 Potassium 3.6 Chloride 104 Carbon Dioxide 26.0 Anion Gap 7 BUN 10 Creatinine 0.78 Estim Creat Clear Calc 92.27 Est GFR (MDRD) Af Amer 100 Est GFR (MDRD) Non-Af 82 BUN/Creatinine Ratio 12.8 Glucose 82 Calcium 9.3 Troponin I High Sens 5 Radiography Diagnostic Testing: Clinical Impression(s) from Imaging Studies Cervical Spine CT 10/12/22 18:48 IMPRESSION: Thyroid goiter. No evidence of acute cervical spinal fracture or spondylolisthesis. Electronically Signed: Edwin Thakkar MD at 19:18 EDT , Chest X-Ray 10/12/22 18:50 IMPRESSION: No radiographic evidence of acute cardiopulmonary disease. Electronically Signed: Edwin Thakkar MD at 19:00 EDT , Discharge Plan Triage Chief Complaint: Chest Pain ED Provider: Nghia Tran Dx/Rx/DC Orders Clinical Impression: Neck pain, Chest pain Instructions: ED Chest Pain, Uncertain Cause, ED Neck Pain Prescriptions: No Action trazodone 50 mg tablet 50 mg PO QHS levothyroxine 50 mcg tablet 50 mcg PO DAILY duloxetine 60 mg capsule,delayed release(DR/EC) 60 mg PO DAILY Label Comments: TAKE ONE CAPSULE BY MOUTH EVERY MORNING WITH FOOD ibuprofen 600 mg tablet 600 mg PO Q8H PRN PRN (Reason: pain) Qty: 20 0RF ondansetron 4 mg tablet,disintegrating 4 mg PO Q8H PRN (Reason: nausea and vomiting) Qty: 10 0RF oxycodone-acetaminophen 5-325 mg tablet 2 tab PO Q8H PRN PRN (Reason: Pain) 7 Days Qty: 20 0RF oxybutynin chloride 10 mg tablet extended release 24hr 10 mg PO DAILY 30 Days Qty: 30 0RF oxycodone-acetaminophen [oxycodone-acetaminophen] 5-325 mg tablet 2 tab PO Q8H PRN PRN (Reason: Pain) 3 Days Qty: 10 0RF cephalexin [cephalexin] 500 mg capsule 500 mg PO Q12 3 Days Qty: 6 0RF Primary Care Provider: Sandeep Guerrero Referrals: Sandeep Guerrero DO [Primary Care Provider] - 3-5 Days if not improving Disposition Disposition: Home, Self Care What to do if you have Problems For any increased pain, shortness of breath, bleeding, nausea or vomiting, chest pain, or any unexpected problems, contact your Primary Care Provider. Call [facility] ([phone]) or report to the closest Emergency Room. Call 911 if necessary. 10/12/222012 <Electronically signed by Nghia Tran MD> Cosigner Signature (if applicable): CC: Dr. Sandeep Guerrero DO Signed Sandeep Guerrero DO Work Phone: Start: 10-12-2022 CT cervical spine without contrast Dr. Sandeep Guerrero Work Phone: Start: 10-12-2022 End: 10-12-2022 Spine Cervical without Contras Procedure Note: See Note; NOTES: [facility] Imaging Services [address] [address] Spine Cervical without Contras MR#: [id number] Acct: [id number] Name: TEREZAKERWIN L Rep #: [id number] : 1970 F 52 From: Edwin Thakkar MD PCP: Dr. Sandeep Guerrero DO Status: REG ER Study: Spine Cervical without Contras Date of Exam: 0 10/12/22 Exam# [id number] Ordering Dr: Nghia Tran MD INDICATION: Neck pain radiates to chest EXAMINATION: CT CERVICAL SPINE - CT Spine Cervical W/O Contrast Injection TECHNIQUE: Helically acquired images were obtained of the cervical spine. 2D reformatted images were reviewed. A radiation dose optimization technique was used for this scan. IV Contrast dosage and agent: None. RADIATION DOSAGE (If Supplied By Facility): CTDIvol = ( 16.35 ) mGy, DLP = ( 337.45 ) mGycm COMPARISON: 05/26/2020 x-ray FINDINGS: VERTEBRAE: No fracture or traumatic subluxation. No discrete lytic or blastic abnormality. Normal alignment. Normal craniocervical junction and cervicothoracic junction. DISCS and SPINAL CANAL: Disc heights are preserved. No critical stenosis. NECK SOFT TISSUES: No prevertebral soft tissue swelling. There is no cervical adenopathy. Mildly enlarged, heterogeneous thyroid. LUNG APICES: Clear. CT/Spine Cervical without Contras IMPRESSION: Thyroid goiter. No evidence of acute cervical spinal fracture or spondylolisthesis. Electronically Signed: Edwin Thakkar MD at 19:18 EDT Reading Location ID and State: [facility] [place] Tel , Service support , CC: Dr. Nghia Tran MD; Dr. Sandeep Guerrero DO Developmental Services Worker: Signed Sandeep Guerrero DO Work Phone: Start: 07-26-2022 End: 07-26-2022 NCS and/or EMG Patient Procedure Note: See Note; NOTES: [facility] Pulmonary Services/Neurology [address] [place] [address] MR#: [id number] Acct: [id number] Name: KERWIN STARKS Kea Rep #: [id number] : 1970 52 From: Cooper Aldana DO Referring Dr: Sandeep Guerrero DO Status: REG CLI Location: PSN Date: 07/26/22 Sex: F C NCS and/or EMG Patient Report Ordering Doctor: Sandeep Guerrero DATE OF SERVICE: 07/26/22 Indication: Two year history of intermittent bilateral hand numbness. Evaluate for entrapment neuropathy. Findings: Nerve conduction studies were performed in the right and left upper extremities. The right median motor study recording the abductor pollicis brevis showed a normal amplitude, normal distal latency and normal conduction velocity. The right ulnar motor study recording the abductor digiti minimi showed a normal amplitude, normal distal latency and normal conduction velocity. No conduction block or focal slowing was present across the elbow. The right median sensory response recording digit two showed a normal amplitude, latency and conduction velocity. The right ulnar sensory response recording digit five showed a normal amplitude, latency and conduction velocity. The right radial sensory response recording over the extensor snuff box showed a normal amplitude, latency and conduction velocity. The left median motor study recording the abductor pollicis brevis showed a normal amplitude, normal distal latency and normal conduction velocity. The left ulnar motor study recording the abductor digiti minimi showed a normal amplitude, normal distal latency and normal conduction velocity. No conduction block or focal slowing was present across the elbow. The left median sensory response recording digit two showed a normal amplitude, latency and conduction velocity. The left ulnar sensory response recording digit five showed a normal amplitude, latency and conduction velocity. The left radial sensory response recording over the extensor snuff box showed a normal amplitude, latency and conduction velocity. The right median-ulnar lumbrical / interosseous motor latencies showed a prolonged median latency compared to the ulnar. Left median-ulnar lumbrical / interosseous motor latencies showed a prolonged median latency compared to the ulnar. Needle EMG of the right upper extremity and cervical paraspinal muscles was performed. No denervation was seen in any muscle. All motor unit morphology, activation and recruitment patterns were normal. Needle EMG of the left upper extremity was omitted given the symmetry of symptoms and absence of findings on the right. Impression: This is a borderline study. There is borderline electrophysiologic evidence of median neuropathy across the wrist in both upper extremities as slowing of median responses was only see with internal comparison studies. However, these finds can be compatible with the clinical diagnosis of mild carpal tunnel syndrome. In addition, there is no electrophysiologic evidence of superimposed cervical radiculopathy in the right upper extremity. Greg Aldana D.O. Multi Select Codes Neurology Neurology Inter Codes: 98710-13 Musc test done w/n test comp (interp) and 86386-25 Nrv cndj test studies (inter) 07/26/22 1603 <Electronically signed by Cooper Aldana DO> Date Cooper Aldana DO CC: Dr. Greg Aldana DO; Dr. Sandeep Guerrero DO Date Dictated: 07/26/221557 Date Transcribed: 07/26/221557 Developmental Services Worker: REAGAN Signed Sandeep Guerrero DO Work Phone: Start: 05-12-2022 Screening mammography Start: 05-12-2022 End: 05-12-2022 SCRN MAMM (CAD)W/FAITH BILAT Procedure Note: See Note; NOTES: [facility] Imaging Services [address] [place] [address] SCRN MAMM (CAD)W/FAITH BILAT MR#: [id number] Acct: [id number] Name: KERWIN STARKS Rep #: [id number] : 1970 F 52 From: Adin acosta MD PCP: Dr. Sandeep Guerrero DO Status: REG CLI Study: SCRN MAMM (CAD)W/FAITH BILAT Date of Exam: 04/15 Exam# [id number] Ordering Dr: Sandeep Guerrero DO MAMMOGRAPHY - BILATERAL SCREENING REASON FOR EXAM: Female, 52 years old. Routine annual screening examination. PERTINENT HISTORY: Mother with breast cancer. Aunt with breast cancer. TECHNIQUE: Digital bilateral breast faith (3D mammographic acquisition) in the CC and MLO projections. 2-D mediolateral oblique (MLO) and craniocaudad (CC) views of both breasts were obtained. CAD: Full Field Digital Mammography with Computer Added Detection was performed. COMPARISON: Comparison is made with prior examination dated 11/20/2020 and 03/12/2019. FINDINGS: Breast Composition: The breasts are heterogeneously dense, which may obscure small masses. There are no dominant masses or suspicious calcifications. Stable 7.4 mm well-defined nodule in the axillary region of the right breast. This most likely represents a small lymph node. No other significant abnormalities are identified. There has been no significant change since the prior study. BI/SCRN MAMM (CAD)W/FAITH BILAT IMPRESSION: Stable bilateral screening mammogram. Yearly follow-up mammogram recommended. (A) ASSESSMENT CATEGORY: BIRADS Category 2: Benign. A letter regarding these results will be sent to the patient by the facility within 30 days. Approximately 10% of breast cancers are not detected by mammography. A normal mammogram should not delay biopsy of a clinically suspicious abnormality. [id number] Electronically Signed: Adin Marshall MD at 14:43 EST Reading Location ID and State: [address] [place] [address] , Service support , CC: Dr. Sandeep Guerrero DO Developmental Services Worker: Signed Sandeep Guerrero DO Work Phone: Start: 02-18-2022 Fluoroscopic guidance Start: 02-18-2022 End: 02-18-2022 Discharge Instruction Comments: See Note; NOTES: [facility] Medical Records Department [address] [place] [address] Instructions for Home/Discharge Instructions 02/18/22 0821 MR#: [id number] Acct: [id number] Name: KERWIN STARKS Rep #: [id number] : 1970 51 From: Keerthi Barnes MD PCP: Dr. Sandeep Guerrero DO Status:REG [facility] Discharge Instructions Diet Discharge Diet: No restrictions Activity Discharge Activity: Return to Normal Activity Dressing / Incision Call your doctor if you observe: Fever of 101 or Higher, Inability to urinate and Inability to have a bowel movement Follow Up Care Please Follow Up With: Keerthi Barnes MD When: call office for appt for stent removal Test Results: Test results from this visit will be discussed in further detail at your follow-up appointment, if applicable. Discharge Plan Admission Attending Provider: Keerthi Barnes Primary Care Provider: Sandeep Guerrero Discharge Orders/Prescriptions Prescriptions: New oxycodone-acetaminophen [oxycodone-acetaminophen] 5-325 mg tablet 2 tab PO Q8H PRN PRN (Reason: Pain) 3 Days Qty: 10 0RF cephalexin [cephalexin] 500 mg capsule 500 mg PO Q12 3 Days Qty: 6 0RF Continued trazodone 50 mg tablet 50 mg PO QHS levothyroxine 50 mcg tablet 50 mcg PO DAILY duloxetine 60 mg capsule,delayed release(DR/EC) 60 mg PO DAILY Label Comments: TAKE ONE CAPSULE BY MOUTH EVERY MORNING WITH FOOD ibuprofen 600 mg tablet 600 mg PO Q8H PRN PRN (Reason: pain) Qty: 20 0RF ondansetron 4 mg tablet,disintegrating 4 mg PO Q8H PRN (Reason: nausea and vomiting) Qty: 10 0RF oxycodone-acetaminophen 5-325 mg tablet 2 tab PO Q8H PRN PRN (Reason: Pain) 7 Days Qty: 20 0RF oxybutynin chloride 10 mg tablet extended release 24hr 10 mg PO DAILY 30 Days Qty: 30 0RF Referrals / Follow Up: Sandeep Guerrero DO [Primary Care Provider] - Disposition Disposition (needs filled in before D/C Order can be placed): Home, Self Care 02/18/22 0916<Electronically signed by Keerthi Barnes MD>Keerthi Barnes MD CC: Dr. Sandeep Guerrero DO Signed Sandeep Guerrero DO Work Phone: Start: 02-18-2022 Cystoscopy and retrograde pyelography Start: 02-18-2022 End: 02-18-2022 Operative Report Comments: See Note; NOTES: [facility] Medical Records Department [address] [place] [address] Operative Report 02/18/22 0817 MR#: [id number] Acct: [id number] Name: KERWIN STARKS Rep #: [id number] : 1970 51 From: Keerthi Barnes MD PCP: Dr. Sandeep Guerrero, DO Status:[facility] Location: [place] [address] Report of Operation Date of Procedure: 02/18/22 Pre-Operative Diagnosis: Right renal calculi Post-Operative Diagnosis: Same Surgery/Procedure Performed:: Cystoscopy, right retrograde pyelogram, right ureteroscopy, stone basket extraction, right ureteral stent change Surgeon: Keerthi Barnes Type of Anesthesia: General Specimen's removed: Renal stones Description of Procedure: The patient is a 51-year-old female who presented 2 weeks ago for ureteroscopy and ended up with a stent insertion due to ureteral narrowing. She now presents for stent removal, ureteroscopy and removal of stones. Informed consent was obtained. The patient was taken to the operating room and placed on the operating room table. Anesthesia monitored the head, neck, airway, IV access and vital signs throughout the case. Once anesthesia was appropriate ministered, the patient was placed into dorsolithotomy position was prepped and draped in usual sterile fashion. At this time the cystoscope was inserted through the urethra under direct visualization into the urinary bladder. Her indwelling right ureteral stent was observed and grasped and brought to the urethral meatus where it was intubated with an 0.035 Glidewire. A cone-tip catheter was used to gently cannulate the ureter alongside the wire and retrograde fashion contrast was an injected revealing no evidence of ureteral obstruction. At this time a second wire was inserted alongside the first into the renal pelvis. A ureteral reaccess sheath was then placed over the Glidewire under fluoroscopic visualization without difficulty. A flexible ureteroscope was then used to gain access to the renal pelvis. 1 large stone was grasped with a basket and removed through the ureteral reaccessed sheath. A second stone was seen on the end of the papilla and was grasped as well and sent for analysis. The remainder of the calcifications that were identified were seen as part of the papilla and were unable to be removed. The ureteroscope was then used to directly visualize removal of the ureteral reaccessed sheath as well as fluoroscopy. There were no injuries to the ureter identified. The safety wire was then used for insertion of a 7 [place] 28 cm JJ stent with good positioning in the renal pelvis as well as the urinary bladder. The patient's bladder was emptied and the case was terminated. She was awakened and taken to the recovery room in good condition. Grafts/Implants Used: 6 x 26 JJ stent Complications None Admit VTE Documentation VTE Present on Admission: Yes VTE Mechan Device Prophylaxis: SCD's VTE Pharm Prophylaxis ordered?: No 02/18/22920 <Electronically signed by Keerthi Barnes MD> Cosigner Signature (if applicable): CC: Dr. Sandeep Guerrero DO; Dr. Keerthi Barnes MD Signed Sandeep Guerrero DO Work Phone: Start: 02-04-2022 End: 02-04-2022 Operative Report Comments: See Note; NOTES: [facility] Medical Records Department [address] [place] [address] Operative Report 02/04/22 1447 MR#: [id number] Acct: [id number] Name: KERWIN STARKS Rep #: [id number] : 1970 51 From: Keerthi Barnes MD PCP: Dr. Sandeep Guerrero DO Status:[facility] Location: [facility] Report of Operation Date of Procedure: 02/04/22 Pre-Operative Diagnosis: Right distal ureteral calculus Post-Operative Diagnosis: Same, passed ureteral narrowing Surgery/Procedure Performed:: Cystoscopy, right ureteroscopy, right retrograde pyelogram, right ureteral stent insertion Surgeon: Keerthi Barnes Type of Anesthesia: General Specimen's removed: None Description of Procedure: The patient is a 51-year-old female with a history of stones who presented to the office with uncontrolled pain secondary to a right distal ureteral stone approximately 1 to 2 mm in size. Informed consent was obtained and the decision was made to proceed with surgical intervention. The patient was taken to the operating room and placed on the operating room table. Anesthesia monitored the head, neck, airway, IV access and vital signs throughout the case. Once anesthesia was appropriately administered the patient was placed into dorsolithotomy position and was prepped and draped in usual sterile fashion. The cystoscope was inserted through the urethra under direct visualization into the urinary bladder. The bladder mucosa was visualized in its entirety and found to be without evidence of mass, erythema, ulceration or foreign body. The ureteral orifices were located in the correct anatomic position in the area of the trigone. The patient's right ureteral orifice was carefully intubated with an 0.035 Glidewire which advanced easily into the renal pelvis as seen on fluoroscopy. At this time the semirigid ureteroscope was used to intubate the distal right ureter. The ureteroscope was unable to advance past the pelvis due to a narrowing of the ureter. A second wire, 0.025, was inserted through the ureteroscope and I was still unable to advance past the narrowing. An attempt was then made at passing the flexible ureteroscope through the narrowing and this was unsuccessful as well. Contrast was injected then through the ureteroscope into the more proximal area of the ureter which did not reveal any evidence of filling defect consistent with a stone. At this time, a 6 [place] 28 cm JJ stent was inserted over the safety wire with good curling achieved in the renal pelvis as well as the urinary bladder. The patient's bladder was then emptied and the case was terminated. The patient was awakened and taken to the recovery room in good condition. There were no complications during this procedure Grafts/Implants Used: 6 x 28 JJ stent Complications None Admit VTE Documentation VTE Present on Admission: Yes VTE Mechan Device Prophylaxis: SCD's VTE Pharm Prophylaxis ordered?: No Reason prophylaxis not ordered:: Treatment Not Indicated 02/04/22 3749 <Electronically signed by Keerthi Barnes MD> Cosigner Signature (if applicable): CC: Dr. Sandeep Guerrero DO; Dr. Keerthi Barnes MD Signed Sandeep Guerrero DO Work Phone: Start: 02-04-2022 End: 02-04-2022 Discharge Instruction Comments: See Note; NOTES: [facility] Department [address] [place] [address] Instructions for Home/Discharge Instructions 02/04/22 1435 MR#: [id number] Acct: [id number] Name: GAVIOTA STARKSEneida Pal Rep #: [id number] : 1970 51 From: Keerthi Barnes MD PCP: Dr. Sandeep Guerrero DO Status:REG [facility] Discharge Instructions Diet Discharge Diet: No restrictions Activity Discharge Activity: Return to Normal Activity May resume sexual activity in: No Restrictions Dressing / Incision Call your doctor if you observe: Fever of 101 or Higher, Inability to urinate and Inability to have a bowel movement Follow Up Care Please Follow Up With: Keerthi Barnes MD When: the office will call to arrange procedure. Test Results: Test results from this visit will be discussed in further detail at your follow-up appointment, if applicable. Discharge Plan Admission Attending Provider: Keerthi Barnes Primary Care Provider: Sandeep Guerrero Discharge Orders/Prescriptions Prescriptions: New ondansetron HCl [ondansetron HCl] 8 mg tablet 8 mg PO Q8H PRN PRN (Reason: Nausea) 7 Days Qty: 20 0RF oxycodone-acetaminophen [oxycodone-acetaminophen] 5-325 mg tablet 2 tab PO Q8H PRN PRN (Reason: Pain) 7 Days Qty: 20 0RF cephalexin [cephalexin] 500 mg capsule 500 mg PO Q12 3 Days Qty: 6 0RF phenazopyridine [Pyridium] 200 mg tablet 200 mg PO TID PRN PRN (Reason: Bladder Spasms) 7 Days Qty: 30 0RF oxybutynin chloride 10 mg tablet extended release 24hr 10 mg PO DAILY 30 Days Qty: 30 0RF Continued trazodone 50 mg tablet 50 tab PO QHS levothyroxine 50 mcg tablet 50 tab PO DAILY duloxetine 60 mg capsule,delayed release(DR/EC) 60 mg PO DAILY Label Comments: TAKE ONE CAPSULE BY MOUTH EVERY MORNING WITH FOOD ibuprofen 600 mg tablet 600 mg PO Q8H PRN PRN (Reason: pain) Qty: 20 0RF ondansetron 4 mg tablet,disintegrating 4 mg PO Q8H PRN (Reason: nausea and vomiting) Qty: 10 0RF ketorolac 10 mg tablet 10 mg PO TID PRN (Reason: pain) 3 Days Qty: 9 0RF Referrals / Follow Up: Sandeep Guerrero DO [Primary Care Provider] - Disposition Disposition (needs filled in before D/C Order can be placed): Home, Self Care 02/04/22 1440<Electronically signed by Keerthi Barnes MD>Keerthi Barnes MD CC: Dr. Sandeep Guerrero, DO Signed Sandeep Guerrero DO Work Phone: Start: 02-04-2022 Fluoroscopic guidance Start: 02-04-2022 Cystoscopy and retrograde pyelography Start: 01-29-2022 End: 01-29-2022 Emergency Department Summary Comments: See Note; NOTES: [facility] Department [address] [place] [address] Emergency Department Summary 01/29/22 MR#: [id number] Acct: [id number] Name: KERWIN STARKS Rep #: [id number] : 1970 51 From: Evangelista Ospina MD PCP: Dr. Sandeep Guerrero DO Status:DEP ER Location: ED HPI HPI - GI History of Present Illness Chief Complaint: Flank Pain Informant: patient Abdominal Pain/Flank Pain Onset: Days (4-5) Context: Sudden Onset Timing: Continuous Quality: Aching Location: Right Flank Current Severity: Moderate Maximum Severity: Severe Worsened by: Nothing Relieved by: Nothing (Medications not helping now) Nausea/Vomiting/Emesis GI Symptom: Positive for Nausea; Negative for Vomiting Diarrhea/Melena/Hematochezia GI Symptom: Negative for Diarrhea, Melena or Hematochezia Associated Symptoms Associated Symptoms: Negative for Dysuria, Frequency, Hematuria or Urgency Narrative Narrative: Patient was diagnosed with a kidney stone here couple days ago via CT scan, she states she has a kink in her ureter that she was diagnosed with by urology and she has never been able to pass a stone in her right side. She is scheduled to see urology on Tuesday, but she presents here on Tuesday because the pain medication is not helping at all anymore and she cannot get the pain to subside, and as a result she cannot get any sleep. Nausea but no vomiting. No fevers or discharge. No hematuria or dysuria. No other new symptoms. [facility] Medical History (Updated 01/29/22 @ 14:[address] Evangelista Ospina MD) Anxiety Back pain GERD (gastroesophageal reflux disease) Hypothyroid Home Medications duloxetine 60 mg capsule,delayed release 60 mg PO DAILY anxiety 08/22/19 [History Last Taken Unknown] levothyroxine 50 mcg tablet 50 tab PO DAILY thyroid 08/22/19 [History Last Taken 08/23/19 06:00 50 tab] trazodone 50 mg tablet 50 tab PO QHS sleep 08/22/19 [History Last Taken Unknown] azithromycin 250 mg tablet (Zithromax) 250 mg PO DAILY 06/02/21 [History Last Taken Unknown] dexamethasone 6 mg tablet 6 mg PO DAILY 06/02/21 [History Last Taken Unknown] gabapentin 300 mg capsule 300 mg PO BID 06/02/21 [History Last Taken Unknown] albuterol sulfate 90 mcg/actuation aerosol inhaler (Ventolin HFA) 2 puff inhalation Q6H PRN shortness of breath or wheezing #6.7 grams 06/10/21 [Rx Last Taken Unknown] promethazine-DM 6.25 mg-15 mg/5 mL oral syrup 5 ml PO Q6H PRN cough #118 mL 06/10/21 [Rx Last Taken Unknown] hydrocodone-acetaminophen 5-325mg 5mg-325mg 1 tab PO Q6H PRN pain 3 days #10 tabs 01/25/22 [Rx Last Taken Unknown] ibuprofen 600 mg tablet 600 mg PO Q8H PRN PRN pain #20 tabs 01/25/22 [Rx Last Taken Unknown] ondansetron 4 mg disintegrating tablet 4 mg PO Q8H PRN nausea and vomiting #10 tabs 01/25/22 [Rx Last Taken Unknown] tamsulosin 0.4 mg capsule (Flomax) 0.4 mg PO DAILY #5 caps 01/25/22 [Rx Last Taken Unknown] cephalexin 500 mg capsule 500 mg PO Q6 #28 CAPSULES 01/29/22 [Rx Last Taken Unknown] ketorolac 10 mg tablet 10 mg PO TID PRN pain 3 days #9 tabs 01/29/22 [Rx Last Taken Unknown] oxycodone-acetaminophen 5 mg-325 mg tablet 1 - 2 tab PO Q6H PRN PRN Pain 2 days #16 TABLETS 01/29/22 [Rx Last Taken Unknown] Allergy/AdvReac Type Severity Reaction Status Date / Time No Known Allergies Allergy Verified 01/29/22 12:27 Family History Mother Heart disease Thyroid disorder Breast cancer Aunt Breast cancer Surgical History History of lithotripsy Social History Smoking Status: Never smoker ROS ROS ED Constitutional Constitutional ED: Denies chills or fever(s) Eyes Eyes: Denies change in vision or diplopia ENT ENT ED: Denies rhinorrhea or sore throat Cardiovascular Cardiovascular: Denies chest pain or palpitations Respiratory/Chest Respiratory/Chest: Denies cough or dyspnea Gastrointestinal Gastrointestinal: Reports abdominal pain and nausea; Denies diarrhea or vomiting Genitourinary Genitourinary ED: Reports flank pain; Denies dysuria or hematuria Musculoskeletal Musculoskeletal: Reports back pain; Denies neck pain Integumentary Denies abscess or rash Neurologic Neurologic: Denies headache(s), paresthesias or weakness Psychiatric Psychiatric: Denies anxiety or suicidal thoughts EXAM Physical Exam Const Vital Signs: 01/29/22 12:25 Temperature 98.7 F Temperature Source Temporal Pulse Rate 66 Respiratory Rate 18 Blood Pressure 137/78 H Blood Pressure Mean 97 Pulse Ox 98 Oxygen Delivery Method Room Air Positive well nourished and well developed General Appearance ED: well developed and NAD HEENT Reports moist mucous membranes normocephalic and atraumatic Eyes PERRL and EOMs intact bilaterally Neck full ROM and supple Resp normal respiratory effort and clear to auscultation bilaterally Cardio regular rate, regular rhythm and no murmurs GI non-tender and non-distended Auscultation: normoactive bowel sounds Palpation: soft Back/Spine General Back: CVA tenderness right and other FROM Extremity normal to inspection General Extremety ED: Negative for edema, pulses abnormal or tenderness General Extremity: Negative for edema or pulses abnormal Neuro oriented x3, CN's II-XII intact bilaterally and no sensory deficits noted Sensorium / Orientation: awake and alert Motor Exam: strength 5/5 throughout Skin no rashes or lesions noted and no wounds MDM MDM MDM Narrative Medical decision making narrative: 3 mm stone was seen near the right UVJ which is consistent with where her symptoms are. Renal function is normal, she does not have a leukocytosis but she does have a change in her urinalysis that makes it look more like an infection. There is only 5-10 WBC at this time. Sent for culture, given her empiric Rocephin. No one is available/on-call for urology today. She is well clinically with normal vital signs and she is not septic. Given this, after analgesics helped her feel better and antibiotics are finished I think she is stable to be discharged home and follow-up closely as scheduled after the weekend, we discussed reasons to return to the ER she is comfortable with that plan and prescribed antibiotics. She is asking for refill for her Percocet. I gave her prescription for a couple more days, in addition to some ketorolac to take orally as an adjunct which hopefully will help her pain. Lab Data Attestation: I reviewed the patient's lab results. Labs: Laboratory Results - last 24 hr 01/29/22 01/29/22 01/29/22 13:12 13:12 13:12 WBC 6.9 RBC 4.95 Hgb 11.0 L Hct 36.3 L MCV 73.3 L MCH 22.2 L MCHC 30.3 L RDW Std Deviation 48.2 H RDW Coeff of Armando 18.4 H Plt Count 334 MPV 10.1 Immature Gran % (Auto) 0.400 Neut % (Auto) 55.8 Lymph % (Auto) 34.4 Real % (Auto) 7.2 Eos % (Auto) 1.6 Baso % (Auto) 0.6 Absolute Neuts (auto) 3.9 Absolute Lymphs (auto) 2.39 Nucleated RBC % 0 Reactive Lymphocytes 1+ Sodium 139 Potassium 3.9 Chloride 107 Carbon Dioxide 29.0 Anion Gap 3 L BUN 12 Creatinine 0.76 Estim Creat Clear Calc 95.76 Est GFR (MDRD) Af Amer 103 Est GFR (MDRD) Non-Af 86 BUN/Creatinine Ratio 15.8 Glucose 104 Calcium 8.8 Urine Color Yellow Urine Clarity Clear Urine pH 7.0 Ur Specific [place] 1.010 Urine Protein 15 H Urine Glucose (UA) Normal Urine Ketones Negative Urine Occult Blood 10 H Urine Nitrite Negative Urine Bilirubin Negative Urine Urobilinogen Normal Ur Leukocyte Esterase 500 H Urine RBC 0-5 SEEN Urine WBC 5-10 SEEN Ur Squamous Epith Cells 5-10 SEEN Urine Bacteria 1+ Urine Mucus 0 SEEN Discharge Plan Triage Chief Complaint: Flank Pain ED Provider: Evangelista Ospina Dx/Rx/DC Orders Clinical Impression: Renal colic on right side, Ureterolithiasis, Acute lower UTI Instructions: ED Kidney Stone w/ Colic Prescriptions: New cephalexin [cephalexin] 500 mg capsule 500 mg PO Q6 Qty: 28 0RF ketorolac 10 mg tablet 10 mg PO TID PRN (Reason: pain) 3 Days Qty: 9 0RF oxycodone-acetaminophen 5-325 mg tablet 1 - 2 tab PO Q6H PRN PRN (Reason: Pain) 2 Days Qty: 16 0RF No Action trazodone 50 mg tablet 50 tab PO QHS levothyroxine 50 mcg tablet 50 tab PO DAILY duloxetine 60 mg capsule,delayed release(DR/EC) 60 mg PO DAILY Label Comments: TAKE ONE CAPSULE BY MOUTH EVERY MORNING WITH FOOD gabapentin 300 mg capsule 300 mg PO BID azithromycin [Zithromax] 250 mg Tablet 250 mg PO DAILY dexamethasone 6 mg Tablet 6 mg PO DAILY promethazine-DM 6.25-15 mg/5 mL syrup 5 ml PO Q6H PRN (Reason: cough) Qty: 118 0RF albuterol sulfate [Ventolin HFA] 90 mcg/actuation HFA aerosol inhaler 2 puff inhalation Q6H PRN (Reason: shortness of breath or wheezing) Qty: 6.7 0RF hydrocodone-acetaminophen 5-325 mg tablet 1 tab PO Q6H PRN (Reason: pain) 3 Days Qty: 10 0RF ibuprofen 600 mg tablet 600 mg PO Q8H PRN PRN (Reason: pain) Qty: 20 0RF tamsulosin [Flomax] 0.4 mg capsule 0.4 mg PO DAILY Qty: 5 0RF ondansetron 4 mg tablet,disintegrating 4 mg PO Q8H PRN (Reason: nausea and vomiting) Qty: 10 0RF Primary Care Provider: Sandeep Guerrero Referrals: Sandeep Guerrero DO [Primary Care Provider] - Keerthi Barnes MD [[facility] Staff - Active Staff] - Keep [facility] appointment Disposition Disposition: Home, Self Care What to do if you have Problems For any increased pain, shortness of breath, bleeding, nausea or vomiting, chest pain, or any unexpected problems, contact your Primary Care Provider. Call [facility] ([phone]) or report to the closest Emergency Room. Call 911 if necessary. 01/29/22 0480 <Electronically signed by Evangelista Ospina MD> Cosigner Signature (if applicable): CC: Dr. Sandeep Guerrero DO Signed Sandeep Guerrero DO Work Phone: Start: 01-25-2022 End: 01-26-2022 Emergency Department Summary Comments: See Note; NOTES: [facility] [address] [place] [address] Emergency Department Summary 01/25/22 MR#: [id number] Acct: [id number] Name: KERWIN STARKS Rep #: [id number] : 1970 51 From: Morenita Ellis MD PCP: Dr. Sandeep Guerrero, DO Status:DEP ER Location: ED HPI History of Present Illness Chief Complaint: Flank Pain Informant: patient Onset/Context/Timing Onset: Days Context: Gradual Onset Current Severity: Moderate Maximum Severity: Moderate Narrative Narrative: Patient presents secondary to right flank pain. Symptoms been ongoing for the past couple days. She denies urinary symptoms. She does have a history of kidney stones. Pain seems to stay in the right lower back and does not wrap into the abdomen at this time. With her prior kidney stone she has required lithotripsy. [facility] Medical History (Updated 01/25/22 @ 22:[address] Morenita Ellis MD) Anxiety Back pain GERD (gastroesophageal reflux disease) Hypothyroid Home Medications duloxetine 60 mg capsule,delayed release 60 mg PO DAILY anxiety 08/22/19 [History Last Taken Unknown] levothyroxine 50 mcg tablet 50 tab PO DAILY thyroid 08/22/19 [History Last Taken 08/23/19 06:00 50 tab] trazodone 50 mg tablet 50 tab PO QHS sleep 08/22/19 [History Last Taken Unknown] azithromycin 250 mg tablet (Zithromax) 250 mg PO DAILY 06/02/21 [History Last Taken Unknown] dexamethasone 6 mg tablet 6 mg PO DAILY 06/02/21 [History Last Taken Unknown] gabapentin 300 mg capsule 300 mg PO BID 06/02/21 [History Last Taken Unknown] albuterol sulfate 90 mcg/actuation aerosol inhaler (Ventolin HFA) 2 puff inhalation Q6H PRN shortness of breath or wheezing #6.7 grams 06/10/21 [Rx Last Taken Unknown] promethazine-DM 6.25 mg-15 mg/5 mL oral syrup 5 ml PO Q6H PRN cough #118 mL 06/10/21 [Rx Last Taken Unknown] hydrocodone-acetaminophen 5-325mg 5mg-325mg 1 tab PO Q6H PRN pain 3 days #10 tabs 01/25/22 [Rx Last Taken Unknown] ibuprofen 600 mg tablet 600 mg PO Q8H PRN PRN pain #20 tabs 01/25/22 [Rx Last Taken Unknown] ondansetron 4 mg disintegrating tablet 4 mg PO Q8H PRN nausea and vomiting #10 tabs 01/25/22 [Rx Last Taken Unknown] tamsulosin 0.4 mg capsule (Flomax) 0.4 mg PO DAILY #5 caps 01/25/22 [Rx Last Taken Unknown] Allergy/AdvReac Type Severity Reaction Status Date / Time No Known Allergies Allergy Verified 01/25/22 18:36 Family History Mother Heart disease Thyroid disorder Breast cancer Aunt Breast cancer Surgical History History of lithotripsy Social History Smoking Status: Never smoker ROS ROS ED Constitutional Constitutional ED: Denies chills or fever(s) Eyes Eyes: Denies change in vision or discharge from eye(s) ENT ENT ED: Denies discharge from eye(s), rhinorrhea or sore throat Cardiovascular Cardiovascular: Denies chest pain or palpitations Respiratory/Chest Respiratory/Chest: Denies cough or dyspnea Gastrointestinal Gastrointestinal: Reports nausea; Denies abdominal pain, diarrhea or vomiting Genitourinary Genitourinary ED: Denies difficulty urinating or dysuria Musculoskeletal Musculoskeletal: Reports back pain; Denies extremity pain Integumentary Denies Abrasions or rash Neurologic Neurologic: Denies headache(s) or weakness Psychiatric Psychiatric: Denies anxiety or depression Allergic/Immunologic Allergic/Immunologic ED: Denies lip swelling or urticaria EXAM Physical Exam Const Vital Signs: 01/25/22 18:36 01/25/22 22:18 Temperature 96.4 F L Temperature Source Temporal Pulse Rate 67 Respiratory Rate 18 Blood Pressure 136/89 H 128/79 H Blood Pressure Mean 104 Pulse Ox 97 Oxygen Delivery Method Room Air Positive well nourished and well developed General Appearance ED: well developed HEENT Reports normocephalic and head/scalp atraumatic Eyes PERRL and EOMs intact bilaterally Neck supple Chest Wall inspection of chest normal and palpation of chest normal Resp normal respiratory effort and clear to auscultation bilaterally Cardio regular rate and regular rhythm GI non-tender Auscultation: hypoactive bowel sounds Palpation: soft Back/Spine no CVA tenderness Back/Spine Narrative: Tenderness in the right lumbar paraspinal muscles but no true CVA tenderness. Extremity normal to inspection Neuro oriented x3 and no sensory deficits noted Sensorium / Orientation: alert Motor Exam: strength 5/5 throughout Psych mental status grossly normal Skin no rashes or lesions noted MDM MDM MDM Narrative Medical decision making narrative: Patient did drive herself to the emergency room. She is given Toradol and Zofran along with IV fluids. Lab work and urinalysis obtained along with a CT flank. Lab Data Attestation: I reviewed the patient's lab results. Labs: Laboratory Results - last 24 hr 01/25/22 01/25/22 01/25/22 18:45 19:10 19:10 WBC 7.6 RBC 4.89 Hgb 11.0 L Hct 37.0 MCV 75.7 L MCH 22.5 L MCHC 29.7 L RDW Std Deviation 51.6 H RDW Coeff of Armando 19.3 H Plt Count 366 MPV 10.2 Immature Gran % (Auto) 0.400 Neut % (Auto) 51.8 Lymph % (Auto) 37.6 Real % (Auto) 7.7 Eos % (Auto) 2.0 Baso % (Auto) 0.5 Absolute Neuts (auto) 3.9 Absolute Lymphs (auto) 2.84 Nucleated RBC % 0 Sodium 139 Potassium 4.2 Chloride 107 Carbon Dioxide 25.0 Anion Gap 7 BUN 10 Creatinine 0.79 Estim Creat Clear Calc 92.13 Est GFR (MDRD) Af Amer 99 Est GFR (MDRD) Non-Af 82 BUN/Creatinine Ratio 12.7 Glucose 107 H Calcium 8.3 L Urine Color Straw Urine Clarity Clear Urine pH 6.0 Ur Specific [place] 1.020 Urine Protein 30 H Urine Glucose (UA) Normal Urine Ketones Negative Urine Occult Blood 250 H Urine Nitrite Negative Urine Bilirubin Negative Urine Urobilinogen Normal Ur Leukocyte Esterase 100 H Urine RBC 10-25 SEEN Urine WBC 0-5 SEEN Ur Squamous Epith Cells 0-5 SEEN Urine Bacteria 1+ Urine Mucus 0 SEEN Radiography Diagnostic Testing: Clinical Impression(s) from Imaging Studies Abdomen/Pelvis CT 01/25/22 20:06 IMPRESSION: 3 right and one left nonobstructing renal stones, 3 mm or smaller in size. No hydronephrosis. 3 mm stone in the expected course of the distal right ureter, not clearly delineated in the pelvis, is favored to represent a phlebolith however nonobstructing right ureteral stone is not completely excluded. Correlate clinically for hematuria. Sliding hiatal hernia. Electronically Signed: Matthew Rachel DO at 21:12 EDT , Treatment and Re-Evaluation Narrative: CBC and chemistry studies are unremarkable. Urinalysis does reveal 250 of blood on macroscopic exam and 10-25 RBCs on microscopic exam. CT scan reveals 3 right and 1 left nonobstructing renal stones. No hydronephrosis is noted. There is a 3 mm stone in the expected course of the distal right ureter. They are unsure if this is in the ureter or a phlebolith. In light of the fact the patient does have right-sided pain with hematuria my suspicion is this is a ureteral stone. Patient will be treated with appropriate analgesics. She will be referred to urology for follow-up. Discharge Plan Triage Chief Complaint: Flank Pain ED Provider: Morenita Ellis Dx/Rx/DC Orders Clinical Impression: Ureterolithiasis Instructions: ED Kidney Stone w/ Colic Prescriptions: New hydrocodone-acetaminophen 5-325 mg tablet 1 tab PO Q6H PRN (Reason: pain) 3 Days Qty: 10 0RF ibuprofen 600 mg tablet 600 mg PO Q8H PRN PRN (Reason: pain) Qty: 20 0RF tamsulosin [Flomax] 0.4 mg capsule 0.4 mg PO DAILY Qty: 5 0RF ondansetron 4 mg tablet,disintegrating 4 mg PO Q8H PRN (Reason: nausea and vomiting) Qty: 10 0RF No Action trazodone 50 mg tablet 50 tab PO QHS levothyroxine 50 mcg tablet 50 tab PO DAILY duloxetine 60 mg capsule,delayed release(DR/EC) 60 mg PO DAILY Label Comments: TAKE ONE CAPSULE BY MOUTH EVERY MORNING WITH FOOD gabapentin 300 mg capsule 300 mg PO BID azithromycin [Zithromax] 250 mg Tablet 250 mg PO DAILY dexamethasone 6 mg Tablet 6 mg PO DAILY promethazine-DM 6.25-15 mg/5 mL syrup 5 ml PO Q6H PRN (Reason: cough) Qty: 118 0RF albuterol sulfate [Ventolin HFA] 90 mcg/actuation HFA aerosol inhaler 2 puff inhalation Q6H PRN (Reason: shortness of breath or wheezing) Qty: 6.7 0RF Primary Care Provider: Sandeep Guerrero Referrals: Sandeep Guerrero DO [Primary Care Provider] - 1 Week Keerthi Barnes MD [Med Staff - Active Staff] - As Needed Disposition Disposition: Home, Self Care Discharge Date/Time: 01/25/22 22:18 What to do if you have Problems For any increased pain, shortness of breath, bleeding, nausea or vomiting, chest pain, or any unexpected problems, contact your Primary Care Provider. Call [facility] ([phone]) or report to the closest Emergency Room. Call 911 if necessary. 01/26/22 0013 <Electronically signed by Morenita Ellis MD> Cosigner Signature (if applicable): CC: Dr. Sandeep Guerrero DO Signed Sandeep Guerrero DO Work Phone: Start: 01-25-2022 End: 01-25-2022 Abdomen/Pelvis without Cont Comments: See Note; NOTES: [facility] Imaging Services [address] [place] [id number] Abdomen/Pelvis without Cont MR#: [id number] Acct: [id number] Name: KERWIN STARKS Rep #: [id number] : 1970 F 51 From: Matthew Rachel DO PCP: Dr. Sandeep Guerrero DO Status: REG ER Study: Abdomen/Pelvis without Cont Date of Exam: 01/11 11/01 Exam# [id number] Ordering Dr: Morenita Ellis MD INDICATION: right flank pain EXAMINATION: CT ABDOMEN AND PELVIS WITHOUT CONTRAST - CT Abdomen And Pelvis W/O Contrast Injection TECHNIQUE: Helically acquired images were obtained of the abdomen and pelvis without oral or IV contrast. A radiation dose optimization technique was used for this scan. IV Contrast dosage and agent: None. Oral contrast: None. COMPARISON: 06/23/2012 CT abdomen and pelvis. FINDINGS: LOWER CHEST: Lung bases are clear. No cardiomegaly or pericardial effusion. There is a sliding hiatal hernia. LIVER: Homogeneous. No focal mass. GALLBLADDER AND BILIARY TREE: No calcified gallstones. Collapsed gallbladder with no surrounding edema or inflammatory changes. No intra- or extrahepatic biliary ductal dilation. PANCREAS: No focal cystic or solid mass. SPLEEN: Normal size without focal cystic or solid mass. ADRENAL GLANDS: No nodules. KIDNEYS, URETERS and BLADDER: Normal renal size and position. No mass. No hydronephrosis. There are several nonobstructing genitourinary stones the largest of which measures 3 mm mid right kidney. Slightly smaller stones seen in the upper pole right kidney, too other stones. Punctate calcification also seen in the mid upper pole left kidney. Distal ureters cannot be clearly delineated from pelvic vasculature. There is a 3 mm calcification in close proximity to the normal course of the distal right ureter near the ureterovesical vesicle junction on the right and is favored to represent a phlebolith however nonobstructing distal right ureteral stone cannot be completely excluded. No bladder stone. PERITONEUM: No ascites or free air. No other fluid collection. BOWEL: No evidence of acute appendicitis. No abnormally distended bowel loops or air fluid levels. No wall thickening or mass. No focal inflammatory changes. LYMPH NODES: No enlarged mesenteric or retroperitoneal lymph nodes. VESSELS: Aorta is non-dilated. REPRODUCTIVE ORGANS: Normal. ABDOMINAL WALL: No discrete abdominal or pelvic wall hernia. BONES: No lytic or blastic abnormality. CT/Abdomen/Pelvis without Cont IMPRESSION: 3 right and one left nonobstructing renal stones, 3 mm or smaller in size. No hydronephrosis. 3 mm stone in the expected course of the distal right ureter, not clearly delineated in the pelvis, is favored to represent a phlebolith however nonobstructing right ureteral stone is not completely excluded. Correlate clinically for hematuria. Sliding hiatal hernia. Electronically Signed: Matthew Rachel DO at 21:12 EDT , CC: Dr. Sandeep Guerrero DO; Dr. Morenita Ellis MD Developmental Services Worker: Signed Sandeep Guerrero DO Work Phone: Start: 01-25-2022 CT of abdomen and pelvis without contrast Start: 11-26-2021 End: 11-26-2021 Abdomen Limited Comments: See Note; NOTES: [facility] Imaging Services [address] [place] [address] Abdomen Limited MR#: [id number] Acct: [id number] Name: KERWIN STARKS Rep #: [id number] : 1970 F 51 From: Adin acosta MD PCP: Dr. Sandeep Guerrero DO Status: REG CLI Study: Abdomen Limited Date of Exam: 11/26/21 Exam# [id number] Ordering Dr: Sandeep Guerrero DO STUDY: ABDOMINAL ULTRASOUND - RIGHT UPPER QUADRANT REASON FOR VISIT: Female, 51 years old FATTY LIVER TECHNIQUE: Ultrasound evaluation of the right upper quadrant was performed with real-time and static edwards-scale imaging. TECHNICAL QUALITY: Adequate. COMPARISON: None. FINDINGS: Liver: The liver is mildly enlarged and measures 18.1 cm. There is increased echogenicity consistent with mild degree of fatty infiltration. The bile ducts are within normal limits. There is hepatic color flow. The direction of portal flow is hepatopetal. There is no demonstrated mass lesion. Gallbladder: Normal distended gallbladder. The gallbladder wall measures 1.8 mm. There is a negative sonographic Todd''s sign. There is no pericholecystic fluid. There are no gallstones. Common Bile Duct (C.B.D.): The common bile duct measures 3.5 mm. Pancreas: Normal size of the head, body and tail of the pancreas. There is normal echogenicity of the pancreas. There is no demonstrated pancreatic mass or cyst. Right Kidney: Normal size of the right kidney. The right kidney measures 11.4 cm x 6.8 cm x 4 cm. Normal renal cortex. The right cortex measures 1.2 cm. There is a 9 mm x 9 mm x 6 mm cyst. There is no right hydronephrosis. Nonobstructive 4 mm x 3 mm x 3 mm calculus. US/Abdomen Limited IMPRESSION: Mild hepatomegaly and fatty infiltration of the liver. Small right renal cyst and small nonobstructive right intrarenal calculus. Electronically Signed: Adin Marshall MD at 10:27 EDT , CC: Dr. Sandeep Guerrero DO Developmental Services Worker: Signed Sandeep Guerrero DO Work Phone: Start: 11-26-2021 End: 11-26-2021 Thyroid Comments: See Note; NOTES: [facility] Imaging Services [address] [place] [address] Thyroid MR#: [id number] Acct: [id number] Name: KERWIN STARKS Rep #: [id number] : 1970 F 51 From: Adin acosta MD PCP: Dr. Sandeep Guerrero DO Status: REG CLI Study: Thyroid Date of Exam: 11/26/21 Exam# [id number] Ordering Dr: Sandeep Guerrero DO STUDY: THYROID ULTRASOUND REASON FOR EXAM: Female, 51 years old. Thyroid nodule. TECHNIQUE: Ultrasound evaluation of the thyroid was performed with real-time and static edwards-scale imaging. COMPARISON: Comparison is made with prior study dated 11/20/2020 03/12/2019. FINDINGS: RIGHT LOBE: The right lobe of the thyroid gland is enlarged measures 5.7 cm x 2 cm x 2.2 cm. There is a heterogeneous echotexture. There is a 6 mm x 7 mm x 5 mm hypoechoic solid nodule in the midpole of the right lobe. LEFT LOBE: The left lobe of the thyroid gland is enlarged and measures 5.4 cm x 2.1 cm x 1.9 cm. There is a heterogeneous echotexture. There is a solid/cystic hypoechoic nodule measuring 1.1 cm x 0.7 cm x 0.3 cm in the midpole. ISTHMUS: The isthmus measures 6 mm. The regional lymph nodes are normal. US/Thyroid IMPRESSION: Enlarged heterogeneous appearance of the thyroid gland with the dominant solid cystic nodule in the midpole of the left lobe measuring 1.1 cm x 0.7 cm x 0.3 cm. Electronically Signed: Adin Marshall MD at 10:44 EDT , CC: Dr. Sandeep Guerrero DO Developmental Services Worker: Signed Sandeep Guerrero DO Work Phone: Start: 11-26-2021 Ultrasonography of abdomen Start: 11-26-2021 US scan of thyroid Start: 11-25-2021 End: 11-27-2021 Inital Evaluation (1) - PT Comments: See Note; NOTES: [facility] Physical Therapy Health[address] [place] [address] / REHABILITATION SERVICES INITIAL EVALUATION MR#: [id number] Acct: [id number] Name: KERWIN STARKS Rep #: [id number] : 1970 51 From: Ck Campos PT, Cert. T, [facility] Referring Dr.: Dr. Sandeep Guerrero DO Status: REG R CR Insurance: [employer] SELF PAY INSURANCE Patient's Visit Information KERWIN STARKS is a 51 year old F referred to Physical Therapy by Dr. Sandeep Fast, DO with a diagnosis of LBP. Date of Evaluation: 11/25/21 Physical Therapist: Ck Campos PT, Cert MDT, OCS - Visit Plan Frequency: 2x /Week Duration: 4 Weeks Plan: PT INTEREVETIONS REGINA EX'S,PROGRESSION OF DLS ,POSTURAL EX'S AND ACTIVITY MODIFICATION. - Subjective This 51 y/o female presents to physical therapy with low back pain. This has LBP for many years. Seen DR and recommended PT . Patient had no diagnostics in fingers. Patient has had no medication for pain . Patient takes sleep aide at night. Symptoms have been gradually worse. 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 Alleviating rest. Patient denies Bowel/bladder issues . Coughing/sneezing -. Bowel/bladder -. Patient pain affects QOL and function. Patient has had no trauma. Patient has had no diagnostics. SOCIAL: . VOCATION: [email or web address]. - Pain Bilateral Back Pain Intensity (Out of 10): 8 - Objective POSTURE: increase lumbar lordosis increase thoracic kyphosis. GAIT: reciprocal pattern mild forward posture. PALAPTION: tender LS /buttock. SYMMETRIES: align. MMT: quads/hamstrings 4/5 ,hip flexion 4/5 ,ankle 5/5. FLEXABILITY: hamstrings WFL ,piriformis min. LUMBAR ROM : flexion WFL, extension min loss, side glides min loss. + Signs of muscular endurance test for abdominals - Special Tests L/S Slump test left side: Negative L/S Slump test right side: Negative L/S Left Straight Leg Raise: Negative L/S Right Straight Leg Raise: Negative Lumbar Standing: Flexion - Mechanical Response: No effect Lumbar Standing: Flexion - Symptoms During Testing: Increases Lumbar Standing: Flexion - Symptoms After Testing: No worse Lumbar Standing: Extension - Mechanical Response: No effect Lumbar Standing: Extension - Symptoms During Testing: Increases Lumbar Standing: Extension - Symptoms After Testing: No worse Comments:: ERP Lumbar Standing: Right Side Glides - Mechanical Response: No effect Lumbar Standing: Right Side Lynd - Symptoms During Testing: No effect Lumbar Standing: Right Side Lynd - Symptoms After Testing: No effect Lumbar Standing: Left Side Lynd - Mechanical Response: No effect Lumbar Standing: Left Side Lynd - Symptoms During Testing: No effect Lumbar Standing: Left Side Lynd - Symptoms After Testing: No effect - Balance/Special Test Scores Oswestry Low Back Score: 15 - Goals Goal 1:: Patient to improve posture/body mechanics 80% of the time. Goal Time Frame: 4-6 Weeks Goal 2:: Patient to demonstrate 60% improvement with function and decrease pain. Goal Time Frame: 4-6 Weeks Goal 3:: Patient to improve lumbar ROM for function of recovery to lift at work. Goal Time Frame: 4-6 Weeks Goal 4:: Patient to improve back oswestry score by 5 points to improve QOL and function. Goal Time Frame: 4-6 Weeks Goal 5:: Patient to perform work demands and housework tasks with min limitations Goal Time Frame: 4-6 Weeks - Rehabilitation Potential Physical Therapy Diagnosis: This patient has lumbar pain with possible derangement ,weakness abdominals with + with muscular endurance, pain with positioning sitting and flexion ,motion testing thus benefit from skilled PT Rehabilitation Potential: Good - Anticipated Interventions Patient/Client Instruction: Educate patient on: Condition, Plan of Care For the Purpose of:: To decrease pain, To increase ROM, To improve muscle performance and motor function, To improve ability to perform ADL's, To increase tolerance to activity/condition/position, To improve ability of physical actions for home/community/work/leisure, To improve health of tissue, To decrease soft tissue restriction, To increase flexibility/ROM, To improve endurance, To prevent re-injury Therapeutic Exercise to Include: Strength training, Body mechanics, Postural training, Flexibilty training, Dynamic Lumbar Stabilization For the Purpose of:: To decrease pain, To increase ROM, To improve muscle performance and motor function, To improve ability to perform ADL's, To increase tolerance to activity/condition/position, To improve ability of physical actions for home/community/work/leisure, To increase flexibility/ROM, To reduce risk of recurrence, To prevent re-injury Thank you for the opportunity to evaluate your patient. For Medicare and Medicare HMO plans, please review the plan of care and approve it. It will need to be FAXED BACK to us at [phone] for Medicare purposes. For Medicare only, by signing this I certify the plan of care. Please let me know if there are questions or concerns regarding this plan of care. Physician Signature: ___Date: <Electronically signed by Ck Campos PT, Cert. T, OCS> 11/27/21 1517 CC: Dr. Sandeep Guerrero DO JLA Signed Sandeep uGerrero DO Work Phone: Start: 06-10-2021 End: 06-10-2021 Emergency Department Summary Comments: See Note; NOTES: [facility] Medical Records Department [address] [place] [address] Emergency Department Summary 06/10/21 MR#: [id number] Acct: [id number] Name: KERWIN STARKS Rep #: [id number] : 1970 51 From: Pradeep Redding DO PCP: Dr. Sandeep Guerrero DO Status:PRE ER Location: ED HPI History of Present Illness Chief Complaint: Cough Narrative Narrative: 51-year-old female presenting with cough and shortness of breath. She is status post Covid on day 14. She has had dexamethasone therapy and been placed on azithromycin by her primary care physician Dr. Guerrero. She also had the monoclonal antibodies on day 9 of symptoms. She states she initially felt better but now has a cough and shortness of breath. Last night she had trouble catching her breath. She denies any chest pain. Patient states that she was doing a televisit however she did not have a home pulse ox. The nurse practitioner who is seeing her wanted to call EMS because she was saying she was short of breath. She elected to have her bring her to the emergency room. She has no history of DVT/PE. No risk factors with exception of recent Covid. She does complain of some lower back pain which she believes is from coughing. [facility] Medical History Anxiety Back pain GERD (gastroesophageal reflux disease) Hypothyroid Home Medications duloxetine 60 mg capsule,delayed release 60 mg PO DAILY 08/22/19 [History Last Taken Unknown] levothyroxine 50 mcg tablet 50 tab PO DAILY 08/22/19 [History Last Taken 08/23/19 06:00 50 tab] trazodone 50 mg tablet 50 tab PO QHS 08/22/19 [History Last Taken Unknown] azithromycin [Zithromax] 250 mg PO DAILY 06/02/21 [History Last Taken Unknown] dexamethasone 6 mg PO DAILY 06/02/21 [History Last Taken Unknown] gabapentin 300 mg PO BID 06/02/21 [History Last Taken Unknown] albuterol sulfate [Ventolin HFA] 2 puff INHALATION Q6H PRN #6.7 g 06/10/21 [Rx Last Taken Unknown] promethazine-DM 5 ml PO Q6H PRN #118 ml 06/10/21 [Rx Last Taken Unknown] Allergy/AdvReac Type Severity Reaction Status Date / Time No Known Allergies Allergy Verified 06/10/21 10:31 Family History Mother Heart disease Thyroid disorder Breast cancer Aunt Breast cancer Surgical History History of lithotripsy ROS ROS ED Constitutional Constitutional ED: Denies chills or fever(s) Eyes Eyes: Denies blurry vision or diplopia ENT ENT ED: Denies rhinorrhea or sore throat Cardiovascular Cardiovascular: Denies chest pain or palpitations Respiratory/Chest Respiratory/Chest: Reports cough and dyspnea Gastrointestinal Gastrointestinal: Denies abdominal pain, nausea or vomiting Genitourinary Genitourinary ED: Denies dysuria or hematuria Musculoskeletal Musculoskeletal: Denies arthralgias or myalgias Integumentary Denies abscess or rash Neurologic Neurologic: Denies headache(s) or paresthesias Psychiatric Psychiatric: Denies anxiety or depression EXAM Physical Exam Const Vital Signs: 06/10/21 10:20 Temperature 96.7 F L Temperature Source Temporal Pulse Rate 69 Respiratory Rate 20 H Blood Pressure 132/81 H Blood Pressure Mean 98 Pulse Ox 100 Oxygen Delivery Method Room Air Positive well nourished General Appearance ED: NAD; Negative for pallor HEENT Reports moist mucous membranes atraumatic Eyes PERRL and EOMs intact bilaterally General Eye ED: Negative for pale conjunctiva or scleral icterus Resp normal respiratory effort and clear to auscultation bilaterally Cardio regular rate and regular rhythm Extremity normal to inspection General Extremety ED: Negative for edema or tenderness General Extremity: Negative for edema Neuro CN's II-XII intact bilaterally and no sensory deficits noted Motor Exam: strength 5/5 throughout Psych mental status grossly normal Thought Process: normal thought process Skin General Skin Exam: Negative for jaundice or pallor MDM MDM MDM Narrative Medical decision making narrative: Patient sent in by her primary care physician's nurse practitioner out of concern that she could not see her pulse ox. On arrival patient reports no ch est pain. She states she has a cough and some shortness of breath which has been present since he has had Covid. She is not had any new fevers. Her heart rate is 69 and her oxygen saturation is 100. Respiratory rate is 20. She does not look to be in any distress. Lungs are clear to auscultation bilaterally. I had a long discussion with she and her and she feels as if she is doing fine and she does not want any further evaluation. Her was concerned that she might have a pulmonary embolism because he has some knowledge of medicine and her daughter is a nurse at [employer] [facility] [employer] [facility] and told her to make sure that they rule this out. I did offer to do a CTA of the chest if it made her more comfortable however with a heart rate of 69 and an oxygen sat of 100% this would be unlikely especially since he is not significantly tachypneic. She is not having any pleuritic chest pain. The patient herself declined this. Her requested that I give her an albuterol inhaler at home and I did order this as well as cough medicine. Patient was amenable to this plan. She will return as needed for any new or worsening symptoms. Impression: 1. History of COVID-19 Discharge Plan Triage Chief Complaint: Cough ED Provider: Pradeep Redding Dx/Rx/DC Orders Instructions: Coronavirus Disease 2019 (COVID-19): Caring for Yourself or Others Prescriptions: New promethazine-DM 6.25-15 mg/5 mL syrup 5 ml PO Q6H PRN (Reason: cough) Qty: 118 RF: 0 albuterol sulfate [Ventolin HFA] 90 mcg/actuation HFA aerosol inhaler 2 puff inhalation Q6H PRN (Reason: shortness of breath or wheezing) Qty: 6.7 RF: 0 No Action trazodone 50 mg tablet 50 tab PO QHS RF: 0 levothyroxine 50 mcg tablet 50 tab PO DAILY RF: 0 duloxetine 60 mg capsule,delayed release(DR/EC) 60 mg PO DAILY RF: 0 gabapentin 300 mg capsule 300 mg PO BID RF: 0 azithromycin [Zithromax] 250 mg Tablet 250 mg PO DAILY RF: 0 dexamethasone 6 mg Tablet 6 mg PO DAILY RF: 0 Primary Care Provider: Sandeep Guerrero Referrals: Sandeep Guerrero DO [Primary Care Provider] - Disposition Disposition: Home, Self Care What to do if you have Problems For any increased pain, shortness of breath, bleeding, nausea or vomiting, chest pain, or any unexpected problems, contact your Primary Care Provider. Call [facility] ([phone]) or report to the closest Emergency Room. Call 911 if necessary. 06/10/21 1125 <Electronically signed by Pradeep Redding DO> Cosigner Signature (if applicable): CC: Dr. Sandeep Guerrero DO Signed Sandeep Guerrero DO Work Phone: Start: 06-02-2021 End: 06-02-2021 Virtual Office Visit Comments: See Note; NOTES: [facility] [address] [place] [id number] OFFICE VISIT Date of Service: 06/02/21 MR#: [id number] Acct: [id number] Patient: KERWIN STARKS Rep #: [id number] : 1970 Provider: NEVAEH castañeda Age/Sex: 51/F Location: [facility] Status: Signed Intake Intake Visit Reasons: COVID- Chief Complaint: back lump Allergies No Known Allergies Allergy (Verified 06/02/21 11:30) PFSH Medical History (Updated 06/02/21 @ 11:22 by Joellen Drake NP, [facility] BOSS-C) Anxiety Back pain GERD (gastroesophageal reflux disease) Hypothyroid Surgical History (Updated 08/23/19 @ 07:[address] Henry Funez MD) History of lithotripsy Family History Mother Heart disease Thyroid disorder Breast cancer Aunt Breast cancer HPI HPI Chief Complaint: back lump Details: Patient was informed that this visit will be billed to patient. This visit was conducted during COVID-19 pandemic. Statement read to the patient: This telehealth visit is being offered during our stay at home measures in response to the pandemic. It is subject to an office visit charge. There are also charges for the monoclonal antibody infusion which may or may not be covered by your insurance. The patient consents to continue. Symptom onset occurred: 05/26/21 Positive COVID-19 test occurred: 06/01/21 COVID vaccine administered: yes, Moderna on oxygen or needed to titrate up? NO The FDA has authorized the emergency use of monoclonal antibody treatment (bamlanivimab/etesevimab or casirivimab/imdevimab) for mild to moderate COVID-19 in adults and pediatric patients with positive results of direct SARS???Cov???2 viral testing ages 12 and older, at least 40 kg, who were not at high risk for progressing to severe COVID-19 and or hospitalization. The significant known and potential risks (allergic reactions or side effects from injection including brief pain, bleeding, bruising of the skin, soreness, swelling, possible infection at the infusion site) and benefits (decrease chance of progression to severe COVID-19) of a monoclonal antibody infusion, and the extent to which such potential risks and benefits are unknown. Patients treated with monoclonal antibody infusion should continue to self-isolate and use infection control measures (such as wear mask, isolate, social distance, avoid sharing personal items, clean and disinfect "high touch" surfaces, and frequent handwashing) according to the CDC guidelines. The fact sheet for patients, parents and caregivers will be provided prior to the administration of the medication. No drugs are approved by the FDA at this time to treat outpatients with mild or moderate symptoms of COVID-19. The following information was communicated to the patient or caregiver: Monoclonal antibody infusion is not an FDA approved drug. The FDA has authorized the emergency use of monoclonal antibody therapy. The patient had the option to refuse or accept treatment with monoclonal antibody therapy. The patient was informed that the number of people treated with monoclonal antibody therapy at this time is small. The potential benefits and the potential risks of monoclonal antibody therapy are not fully known. Potential benefits of monoclonal antibody include a reduced risk of progressing to severe COVID-19 infection. Potential risks or side effects of monoclonal antibody therapy include allergic reactions, side effects from injection including brief pain, bleeding, bruising of the skin, soreness, swelling, possible infection at the infusion site. The patient stated understanding of this information communicated and wished to proceed with monoclonal antibody infusion therapy. The patient states understanding of this information communicated and wishes to proceed with monoclonal antibody infusion therapy. Patient agrees to receive either balanivimab/etesvimab or casirivimab/imdevimab upon availability. COVID + test date: 06/01/21 @ [facility] Sx Onset: 05/26/21 Sx: cough, nasal and chest congestion, headache, body aches, SOB, "flu like" Age: 51yrs Wt 195 Ht 5'10" BMI 28.0 O2: No Vaccine: Moderna x2 Qualifier: BMI 28.0 ROS Const Constitutional: Positive for body ache and headache(s) ENT ENT: Positive for nasal congestion and headache(s) Resp Respiratory: Positive for cough, chest congestion and shortness of breath Neuro Neurology: Positive for headache(s) Exam Const General: cooperative and no acute distress Resp Effort Inspection: normal respiratory effort and able to speak in complete sentences Neuro General: patient alert, patient awake and patient oriented x3 Cognition: normal cognition Speech: speech normal Psych Mental Status: mental status grossly normal Mood: congruent mood Attitude: cooperative Thought Process: normal Thought Content: normal Judgment: judgment good Details: Details:: Exam was limited due to phone visit with no video. Coding Level of Care Code New Pt Level 1 Telephone Patient Type New History Problem Focused Exam Problem Focused Medical Decision Making Straight Forward Diagnoses COVID-19 U07.1 BMI 28.0-28.9,adult Z68.28 Time Spent (min) 10 Comment 35928 Assessment and Plan Assessment and Plan (1) COVID-19: Status: Acute Plan - Joellen Drake NP, [facility] BOSS-C: The patient remains appropriate for the Monoclonal Antibody Infusion. The patient states understanding of this information communicated and wishes to proceed with monoclonal antibody infusion therapy. Patient agrees to receive either balanivimab/etesvimab or casirivimab/imdevimab upon availability. (2) BMI 28.0-28.9,adult: Status: Acute 06/02/21 1132 <Electronically signed by Joellen Drake NP [facility] BOSS-C> Date Joellen Drake NP [facility]ARD[facility] BOSS-C Cosigner Signature: Date (if applicable) CC: DO Sandeep Manriquez DO Work Phone: Start: 05-26-2021 End: 05-26-2021 L/S Spine Min 4 Views Comments: See Note; NOTES: [facility] Radiology [address] [place] [address] L/S Spine Min 4 Views MR#: [id number] Acct: [id number] Name: KERWIN STARKS Rep #: [id number] : 1970 F 51 From: Adin acosta MD PCP: Dr. Sandeep Guerrero DO Status: DEP AMB Study: L/S Spine Min 4 Views Date of Exam: 05/26/21 Exam# [id number] Ordering Dr: Sandeep Guerrero DO STUDY: X-RAY - LUMBAR SPINE REASON FOR EXAM: Female, 51 years old. PAIN TECHNIQUE: 5 view(s) of the lumbar spine were obtained. COMPARISON: None FINDINGS: Normal lumbar lordosis. There is no substantial scoliosis. There is a normal alignment of the vertebrae. Normal vertebral bodies and endplates. Normal disc space heights. The soft tissue structures are unremarkable. RAD/L/S Spine Min 4 Views IMPRESSION: Normal x-ray examination of the lumbar spine. Electronically Signed: Adin Marshall MD at 15:40 EST , Service support , CC: Dr. Sandeep Guerrero DO Developmental Services Worker: Signed Sandeep Guerrero DO Work Phone: Start: 11-20-2020 End: 11-20-2020 Liver Comments: See Note; NOTES: [facility] Imaging Services [address] [address] Liver MR#: [id number] Acct: [id number] Name: KERWIN STARKS Rep #: [id number] : 1970 F 50 From: Adin acosta MD PCP: Dr. Sandeep Guerrero DO Status: REG CLI Study: Liver Date of Exam: 11/20/20 Exam# [id number] Ordering Dr: Sandeep Guerrero DO STUDY: ABDOMINAL ULTRASOUND - RIGHT UPPER QUADRANT REASON FOR VISIT: Female, 50 years old FATTY LIVER TECHNIQUE: Ultrasound evaluation of the right upper quadrant was performed with real-time and static edwards-scale imaging. TECHNICAL QUALITY: Adequate. COMPARISON: Comparison is made with prior examination dated 03/12/2019. FINDINGS: Liver: The liver is mildly enlarged and measures 18.9 cm. There is increased echogenicity consistent with fatty infiltration. The bile ducts are within normal limits. There is hepatic color flow. The direction of portal flow is hepatopetal. There is no demonstrated mass lesion. Gallbladder: Normal distended gallbladder. The gallbladder wall measures 1 mm. There is a negative sonographic Todd''s sign. There is no pericholecystic fluid. There are no gallstones. Common Bile Duct (C.B.D.): The common bile duct measures 5 mm. Pancreas: Normal size of the head, body and tail of the pancreas. There is normal echogenicity of the pancreas. There is no demonstrated pancreatic mass or cyst. Right Kidney: Normal size of the right kidney. The right kidney measures 11.1 cm x 5.7 cm x 4.6 cm. Normal renal cortex. The right cortex measures 1.1 cm. There is a 1.2 cm x 1 cm by 1.1 cm renal cyst. This is unchanged. There is evidence of a 4 mm x 2 mm nonobstructive calculus. There is no right hydronephrosis. US/Liver IMPRESSION: Mild hepatomegaly and fatty infiltration of the liver. Stable small right renal cyst in the right nonobstructive intrarenal calculus. Electronically Signed: Adin Marshall MD at 9:46 EDT , Service support , CC: Dr. Sandeep Guerrero DO Developmental Services Worker: Signed Sandeep Guerrero DO Work Phone: Start: 11-20-2020 End: 11-20-2020 SCRN MAMM (CAD)W/FAITH BILAT Comments: See Note; NOTES: [facility] Imaging Services [address] [place] [address] SCRN MAMM (CAD)W/FAITH BILAT MR#: [id number] Acct: [id number] Name: KERWIN STARKS Rep #: [id number] : 1970 F 50 From: Adin acosta MD PCP: Dr. Sandeep Guerrero DO Status: REG CLI Study: SCRN MAMM (CAD)W/FAITH BILAT Date of Exam: 11/11 Exam# [id number] Ordering Dr: Sandeep Guerrero DO MAMMOGRAPHY - BILATERAL SCREENING REASON FOR EXAM: Female, 50 years old. Routine annual screening examination. PERTINENT HISTORY: Mother with breast cancer. Aunt with breast cancer. TECHNIQUE: Digital bilateral breast faith (3D mammographic acquisition) in the CC and MLO projections. 2-D mediolateral oblique (MLO) and craniocaudad (CC) views of both breasts were obtained. CAD: Full Field Digital Mammography with Computer Added Detection was performed. COMPARISON: Comparison is made with prior study dated 03/12/2019 and 09/21/2016. FINDINGS: Breast Composition: The breasts are heterogeneously dense, which may obscure small masses. There are no dominant masses or suspicious calcifications. Stable 7.4 mm well-defined nodule in the axillary region of the right breast. This most likely represents a small lymph node. No other significant abnormalities are identified. There has been no significant change since the prior study. BI/SCRN MAMM (CAD)W/FAITH BILAT IMPRESSION: Stable bilateral screening mammogram. Yearly follow-up mammogram recommended. (A) ASSESSMENT CATEGORY: BIRADS Category 2: Benign. A letter regarding these results will be sent to the patient by the facility within 30 days. Approximately 10% of breast cancers are not detected by mammography. A normal mammogram should not delay biopsy of a clinically suspicious abnormality. [id number] Electronically Signed: Adin Marshall MD at 8:53 EDT , Service support , CC: Dr. Sandeep Guerrero DO Developmental Services Worker: Signed Sandeep Guerrero DO Work Phone: Start: 11-20-2020 End: 11-20-2020 Thyroid Comments: See Note; NOTES: [facility] Imaging Services [address] [place] [address] Thyroid MR#: [id number] Acct: [id number] Name: KERWIN STARKS Rep #: [id number] : 1970 F 50 From: Adin acosta MD PCP: Dr. Sandeep Guerrero DO Status: REG CLI Study: Thyroid Date of Exam: 11/20/20 Exam# [id number] Ordering Dr: Sandeep Guerrero DO STUDY: THYROID ULTRASOUND REASON FOR EXAM: Female, 50 years old. NODULE TECHNIQUE: Ultrasound evaluation of the thyroid was performed with real-time and static edwards-scale imaging. COMPARISON: Comparison is made with prior study dated 03/12/2019. FINDINGS: RIGHT LOBE: The right lobe of the thyroid gland is enlarged and measures 5.9 cm x 2.2 cm x 1.9 cm. There is a heterogeneous echotexture. Several small nodules are seen. The largest nodule is in the mid lobe of the thyroid measuring 7 mm x 8 mm x 5 mm. This is essentially unchanged. LEFT LOBE: The left lobe of the thyroid gland is enlarged and measures 5.3 cm x 1.9 cm x 1.8 cm. There is a heterogeneous echotexture. Multiple small nodules are seen. The largest nodule measures 4 mm x 6 mm x 1 mm. This has decreased in size. ISTHMUS: The isthmus measures 5 mm. The regional lymph nodes are normal. US/Thyroid IMPRESSION: Thyroid enlargement. Heterogeneous appearance of both lobes of the thyroid gland. Subcentimeter nodules seen in both lobes of the thyroid gland. Electronically Signed: Adin Marshall MD at 10:46 EDT , Service support , CC: Dr. Sandeep Guerrero DO Developmental Services Worker: Signed Sandeep Guerrero DO Work Phone: Start: 05-26-2020 End: 05-26-2020 Cerv Spine 4 or 5 Views Comments: See Note; NOTES: [facility]iology [address] [place] [address] Cerv Spine 4 or 5 Views MR#: [id number] Acct: [id number] Name: KERWIN STARKS Rep #: [id number] : 1970 F 50 From: Bruno Guillen MD PCP: Dr. Sandepe Guerrero DO Status: DEP AMB Study: Cerv Spine 4 or 5 Views Date of Exam: 05/26/20 Exam# [id number] Ordering Dr: Sandeep Guerrero DO STUDY: X-RAY - CERVICAL SPINE REASON FOR EXAM: Female, 50 years old. RIGHT SHOULDER PAIN WITH RADIATION THROUGH ELBOW TECHNIQUE: 6 view(s) of the cervical spine were obtained. COMPARISON: None FINDINGS: Normal anterior atlantoaxial articulation. Normal odontoid process. Normal cervical lordosis. Normal vertebral bodies and endplates. Normal disc space heights. Normal visualized intervertebral neuroforamina. The soft tissue structures are unremarkable. RAD/Cerv Spine 4 or 5 Views IMPRESSION: Normal x-ray examination of the visualized cervical spine. Electronically Signed: Bruno Guillen MD at 22:55 EST , Service support , CC: Dr. Sandeep Guerrero DO Developmental Services Worker: Signed Sandeep Guerrero Work Phone: Start: 05-26-2020 End: 05-27-2020 Chest PA and Lateral Comments: See Note; NOTES: [facility] [address] [place] [address] Chest PA and Lateral MR#: [id number] Acct: [id number] Name: KERWIN STARKS Rep #: [id number] : 1970 F 50 From: Perez Sullivan MD PCP: Dr. Sandeep Guerrero DO Status: DEP AMB Study: Chest PA and Lateral Date of Exam: 05/26/20 Exam# [id number] Ordering Dr: Sandeep Guerrero DO HISTORY: LINGERING COUGH EXAM: XR Chest 2 Views: COMPARISON: None FINDINGS: # of images incl. paperwork: 2 Lungs are clear. Heart is not enlarged. No acute osseous pathology perceived. Pulmonary vascularity is distinct. No effusions. RAD/Chest PA and Lateral IMPRESSION: Normal. at 0125 Reported and signed by: Perez Sullivan MD Electronically Signed: Perez Sullivan MD at 1:23 EST Tel , Service support , CC: Dr. Sandeep Guerrero DO Developmental Services Worker: Signed Sandeep Guerrero Work Phone: Start: 05-26-2020 End: 06-25-2020 Shoulder min 2 Views Comments: See Note; NOTES: [facility] [address] [place] [address] Shoulder min 2 Views MR#: [id number] Acct: [id number] Name: KERWIN STARKS Rep #: [id number] : 1970 F 50 From: Amie wilkerson MD PCP: Dr. Sandeep Guerrero DO Status: DEP AMB Study: Shoulder min 2 Views Date of Exam: 05/26/20 Exam# [id number] Ordering Dr: Sandeep Guerrero DO STUDY: X-RAY - RIGHT SHOULDER REASON FOR EXAM: Female, 50 years old. RIGHT SHOULDER PAIN WITH RADIATION THROUGH ELBOW TECHNIQUE: 4 view(s) of the shoulder. COMPARISON: None. FINDINGS: No fracture or dislocation. Joint spaces are well-maintained. Small focal calcification adjacent to the greater tuberosity. This may represent calcific tendinosis of the supraspinatus tendon. Soft tissues are otherwise unremarkable. Normal visualized pulmonary apex. RAD/Shoulder min 2 Views IMPRESSION: 1. Possible calcific tendinosis of the supraspinatus tendon, otherwise negative study. Electronically Signed: Amie Torres MD at 23:58 EST Tel , Service support , CC: Dr. Sandeep Guerrero DO Developmental Services Worker: Signed Sandeep A Fast Work Phone: Start: 09-10-2019 End: 09-10-2019 Surgery Visit Report Comments: See Note; NOTES: [facility] [address] [place] [address] OFFICE VISIT Date of Service: 09/10/19 MR#: [id number] Acct: [id number] Name: KERWIN STARKS Rep #: [id number] : 1970 Provider: Julieta Antonio PA-C Age/Sex: 49/F Location: [facility] Status: Signed Intake Intake Visit Reasons: POST OP EXCISION LIPOMA/ TELE Chief Complaint: back lump Allergies No Known Allergies Allergy (Verified 08/22/19 09:32) Subjective Details: Due to Covid 19, patient was contacted via phone for her post-op visit. Patient is a 49 y/o F I am following for subcutaneous mass on her back. Dr. Funez performed an excision of the subcutaneous back lesion on 08/23/19. Pathology demonstrated lipoma. Patient denies incisional pain or discomfort. She denies erythema or infection. She denies drainage from the incision site. She denies needing a return to work letter. Assessment AND Plan Problems 1. Lipoma D17.9 Plan - Follow-up as needed Coding Level of Care Code Global Post Op Diagnoses Lipoma D17.9 09/10/19 1337 <Electronically signed by Julieta Antonio PA-C> Date Julieta Antonio PA-C Cosigner Signature: Date (if applicable) CC: Sandeep Fast DO Sandeep Fast Start: 08-23-2019 End: 08-23-2019 Operative Report Comments: See Note; NOTES: [facility] Medical Records Department [address] [place] [address] Operative Report 08/23/19 0734 MR#: [id number] Acct: [id number] Name: KERWIN STARKS Rep #: [id number] : 1970 49 From: Henry Funez MD PCP: Sandeep Guerrero DO Status: REG SDC Y Location: [place] [address] Problem List (1) Lesion of subcutaneous tissue Status: Acute Report of Operation Date of Procedure: 08/23/19 Pre-Operative Diagnosis: Lesion of subcutaneous tissue back Post-Operative Diagnosis: Same Surgery/Procedure Performed:: Excision of a 2 cm subcutaneous lesion to back Type of Anesthesia:: Local MAC Anesthesiologist: Kaden Dasilva Specimen's removed: 2-1/2 cm subcutaneous lesion to back Estimated Blood Loss (mL): < 25 cc Fluids Replaced: 500 cc LR Description of Procedure: Patient was brought in the operating room. Placed in the prone position. Under excellent MAC anesthetic the back was sterilely prepped draped in usual fashion. Local was injected. A transverse incision was made over the lower back area. Dissection down through the subcutaneous tissues all the way down to the paraspinous muscles the fatty lesion was identified. I removed it in its entirety. And sent it to pathology for permanent sectioning. Deep dermal stitches of 3-0 Vicryl then a running 4-0 Monocryl in the skin. Steri-Strips were applied sterile dressings were applied and the patient tolerated the procedure well. - Admit VTE Documentation VTE Present on Admission: No VTE Mechan Device Prophylaxis: SCD's VTE Pharm Prophylaxis ordered?: No Reason prophylaxis not ordered:: Treatment Not Indicated 08/23/19 0855 <Electronically signed by Henry Funez MD> Date Henry Funez MD CC: Henry Funez MD; Sandeep Guerrero DO Signed Sandeep Guerrero Start: 08-23-2019 End: 08-23-2019 Discharge Instruction Comments: See Note; NOTES: [facility] Medical Records Department [address] [place] [address] Instructions for Home/Discharge Instructions 08/23/19 0835 MR#: [id number] Acct: [id number] Name: KERWIN STARKS Rep #: [id number] : 1970 49 From: Henry Funez MD PCP: Sandeep Guerrero DO Status: REG [facility] Discharge Diet: Light diet - advance as tolerated - If you have questions about your diet instructions, please talk to your doctor. Discharge Activity: May Not Drive - for 1 week or while taking narcotic pain medicine. May shower in (days): 1 Lifting Restrictions: 10 pounds Call your doctor if your incision/area has: Continuous Slow Oozing, Sudden Increased Bleeding, Increased Pain/ Swelling, Increased Redness, Foul Smelling Discharge Call your doctor if you observe: Fever of 101 or Higher Suture Line Care: Avoid Pulling/Pushing, Avoid Pinching/Bending Additional Dressing/Incision Instructions:: Change or remove dressing in 4 days. Leave steri-strips in place for 1 week. Allergies/Adverse Reactions: Allergies No Known Allergies Allergy (Verified 08/22/19 09:32) Medications to take at Discharge Naproxen Sodium [Aleve] 220 mg PO PRN PRN 08/22/19 buspirone 15 mg tablet 15 mg PO PRN PRN 08/22/19 duloxetine 60 mg capsule,delayed release 60 mg PO DAILY 08/22/19 levothyroxine 50 mcg tablet 50 tab PO DAILY 08/22/19 trazodone 50 mg tablet 50 tab PO QHS 08/22/19 Oxycodone HCl/Acetaminophen [Percocet 5/325] 1 - 2 tab PO Q4H PRN PRN 6 Days #30 tab 08/23/19 The following prescriptions were given: Oxycodone HCl/Acetaminophen [Percocet 5/325] 1 - 2 tab PO Q4H PRN PRN 6 Days #30 tab PRN Reason: Pain Transmission Status: Received by [facility] Primary Care Physician: Sandeep Guerrero DO [Primary Care Provider] - Test Results: Test results from this visit will be discussed in further detail at your follow-up appointment, if applicable. Please Follow Up With: Julieta Antonio PA-C - [phone] When: Call to make an appointment to be seen in about 10 days. 08/23/19 0836 <Electronically signed by Henry Funez MD> Date Henry Funez MD CC: Sandeep Guerrero DO Signed Sandeep Fast Start: 08-23-2019 End: 08-23-2019 History and Physical Exam Comments: See Note; NOTES: [facility] Medical Records Department [address] [place] [address] History and Physical 08/22/19 0903 MR#: [id number] Acct: [id number] Name: KERWIN STARKS Rep #: [id number] : 1970 49 From: Henry Funez MD PCP: Sandeep Guerrero DO Status: [facility] Location: [place] [address] Intake Vital Signs 08/22/19 BMI 29.9 08/22/19 Height 5 ft 10.25 in 08/22/19 Weight: 202 lb 8 oz 08/22/19 BMI 28.8 08/22/19 BP 131/80 H 08/22/19 Blood Pressure Location Rt brachial 08/22/19 Position Sitting 08/22/19 Respiration 18 08/22/19 Pulse 80 08/22/19 Pulse Oximetry (%) 99 Intake Visit Reasons: Lipoma Back Chief Complaint: back lump [employer] Package Symbol Stamper Required: No Is patient in pain?: No Allergies No Known Allergies Allergy (Verified 08/22/19 08:53) Medications buspirone 15 mg tablet mg PO 08/22/19 [History Confirmed 08/22/19] cholecalciferol (vitamin D3) 2,000 unit chewable tablet 2,000 unit PO DAILY 08/22/19 [History Confirmed 08/22/19] duloxetine 60 mg capsule,delayed release mg PO 08/22/19 [History Confirmed 08/22/19] levothyroxine 50 mcg tablet tab PO 08/22/19 [History Confirmed 08/22/19] naproxen sodium 220 mg capsule 220 mg PO BID PRN 08/22/19 [History Confirmed 08/22/19] trazodone 50 mg tablet tab PO 08/22/19 [History Confirmed 08/22/19] Is last menstrual period known: No Post menopausal: No Patient : No [facility] Medical History Hypothyroid (Acute) Back pain (Acute) GERD (gastroesophageal reflux disease) (Acute) Anxiety (Acute) Surgical History History of lithotripsy (Acute) Family History Mother Heart disease Thyroid disorder Breast cancer Aunt Breast cancer Social History (Updated 08/22/19 @ 09:[address] Henry Funez MD) Smoking Status: Never smoker HPI HPI HPI: KERWIN STARKS, is a 49 F who presents to the office today for HPI HPI Surgical H AND P: Yes HPI: KERWIN STARKS, is a 49 F who presents to the office today for Painful subcutaneous lesion to her back. Patient has had a lower lump in her lower back area that is been increasing over the last several years. She has had numerous trips down to [place] and has been noticing that pressure on this area has caused increased discomfort. She cannot recall any trauma to the area and nothing is been infected back there. ROS General General: Yes fatigue; no weight change, appetite, colon cancer, breast cancer or weakness HEENT HEENT: Yes difficulty swallowing; no eye injury, eye surgery, swollen glands or hoarseness Endo Endocrine: No thyroid disease, diabetes mellitus, thyroid cancer, Hair loss, heat intolerance or cold intolerance Musc Musculoskeletal: Yes back problems; no arthritis, rheumatoid arthritis, gout or joint pain Cardio Cardiovascular: No murmur, pacemaker, heart disease, atrial fibrillation, high blood pressure, heart attack, heart stent, palpitations, shortness of breat with exertion or chest pain Psych Psychiatric: Yes anxiety; no depression or hearing voices Resp Respiratory: No shortness of breath, No sleep apnea, No cough, No COPD, No asthma, No emphysema, No wheezing Gastro Gastrointestinal: No abdominal pain, No nausea or vomiting, No diarrhea, No constipation, No blood in stool, Yes acid reflux, No hemorrhoids, No ulcers, No gallbladder problem, No black,tarry stools Wilmer Hematologic: No blood thinners, No blood disorders, No bleeding, No anemia, No blood clots Neuro Neurologic: No weakness Exam Const General: no acute distress, well developed, well hydrated Orientation: oriented to person, oriented to place, oriented to time [facility] Head: normocephalic, atraumatic Ears: external ears normal Mouth: moist mucous membranes Eyes Sclera: sclerae normal Pupils: normal by confrontation Neck Neck: no lymphadenopathy noted Neck mass: No Thyroid: thyroid normal, symmetrical Chest Chest palpation AND inspection: normal inspection of the chest Resp Effort AND Inspection: normal respiratory effort Auscultation: clear to auscultation bilaterally Percussion: percussion normal Cardio Rate: regular rate Rhythm: regular rhythm Heart Sounds: no murmurs GI Palpation: soft, no hepatosplenomegaly, no masses, nontender Rectal Exam: other Other: Rectal exam deferred. Skin Other: Lower back there is a 2-1/2 cm to 3 cm subcutaneous lesion very mobile but right along the midline just to the left side. It does not appear to be subfascial but it is certainly not superficial. It is nontender and shows no signs of infection. Extrem General: normal to inspection, no clubbing, cyanosis or edema Assessment AND Plan Problems 1. Lesion of subcutaneous tissue L98.9 Plan My plan will be to excise this in the OR. Plan to do an excision of Lower back subcutaneous neoplasm. Reviewed the procedure with the patient including risks, including but not limited to infection, bleeding, paresthesia of skin near the excision and seroma. All questions were answered. Coding Level of Care Code Off vis,new,level 3 Diagnoses Lesion of subcutaneous tissue L98.9 08/22/19902 <Electronically signed by Henry Funez MD> Date Henry Funez MD I have re-examined the patient. There are no clinical changes since date of exam. 08/23/19717 <Electronically signed by Henry Funez MD> Date: Time: Henry Funez MD CC: Henry Funez MD; Sandeep Guerrero DO Date Dictated: 08/22/19902 Date Transcribed: 08/22/19 8135 Developmental Services Worker: SCHUYLER Signed Sandepe Fast Start: 08-22-2019 End: 08-22-2019 Surgery Visit Report Comments: See Note; NOTES: [facility] [address] [place] [address] OFFICE VISIT Date of Service: 08/22/19 MR#: [id number] Acct: [id number] Name: KERWIN STARKS Rep #: [id number] : 1970 Provider: Henry Funez MD Age/Sex: 49/F Location: [facility] Status: Signed Intake Vital Signs08/22/19 BMI 29.9 08/22/19 Height 5 ft 10.25 in 08/22/19 Weight: 202 lb 8 oz Intake Visit Reasons: Lipoma Back Chief Complaint: back lump [employer] Package Symbol Stamper Required: No Is patient in pain?: No Allergies No Known Allergies Allergy (Verified 08/22/19 08:53) Medications buspirone 15 mg tablet mg PO 08/22/19 [History Confirmed 08/22/19] cholecalciferol (vitamin D3) 2,000 unit chewable tablet 2,000 unit PO DAILY 08/22/19 [History Confirmed 08/22/19] duloxetine 60 mg capsule,delayed release mg PO 08/22/19 [History Confirmed 08/22/19] levothyroxine 50 mcg tablet tab PO 08/22/19 [History Confirmed 08/22/19] naproxen sodium 220 mg capsule 220 mg PO BID PRN 08/22/19 [History Confirmed 08/22/19] trazodone 50 mg tablet tab PO 08/22/19 [History Confirmed 08/22/19] Is last menstrual period known: No Post menopausal: No Patient : No PFSH Medical History Hypothyroid (Acute) Back pain (Acute) GERD (gastroesophageal reflux disease) (Acute) Anxiety (Acute) Surgical History History of lithotripsy (Acute) Family History Mother Heart disease Thyroid disorder Breast cancer Aunt Breast cancer Social History (Updated 08/22/19 @ 09:[address] Henry Funez MD) Smoking Status: Never smoker HPI HPI HPI: KERWIN STARKS, is a 49 F who presents to the office today for HPI HPI Surgical H AND P: Yes HPI: KERWIN STARKS, is a 49 F who presents to the office today for Painful subcutaneous lesion to her back. Patient has had a lower lump in her lower back area that is been increasing over the last several years. She has had numerous trips down to [place] and has been noticing that pressure on this area has caused increased discomfort. She cannot recall any trauma to the area and nothing is been infected back there. ROS General General: Yes fatigue; no weight change, appetite, colon cancer, breast cancer or weakness HEENT HEENT: Yes difficulty swallowing; no eye injury, eye surgery, swollen glands or hoarseness Endo Endocrine: No thyroid disease, diabetes mellitus, thyroid cancer, Hair loss, heat intolerance or cold intolerance Musc Musculoskeletal: Yes back problems; no arthritis, rheumatoid arthritis, gout or joint pain Cardio Cardiovascular: No murmur, pacemaker, heart disease, atrial fibrillation, high blood pressure, heart attack, heart stent, palpitations, shortness of breat with exertion or chest pain Psych Psychiatric: Yes anxiety; no depression or hearing voices Resp Respiratory: No shortness of breath, No sleep apnea, No cough, No COPD, No asthma, No emphysema, No wheezing Gastro Gastrointestinal: No abdominal pain, No nausea or vomiting, No diarrhea, No constipation, No blood in stool, Yes acid reflux, No hemorrhoids, No ulcers, No gallbladder problem, No black,tarry stools Wilmer Hematologic: No blood thinners, No blood disorders, No bleeding, No anemia, No blood clots Neuro Neurologic: No weakness Exam Const General: no acute distress, well developed, well hydrated Orientation: oriented to person, oriented to place, oriented to time [facility] Head: normocephalic, atraumatic Ears: external ears normal Mouth: moist mucous membranes Eyes Sclera: sclerae normal Pupils: normal by confrontation Neck Neck: no lymphadenopathy noted Neck mass: No Thyroid: thyroid normal, symmetrical Chest Chest palpation AND inspection: normal inspection of the chest Resp Effort AND Inspection: normal respiratory effort Auscultation: clear to auscultation bilaterally Percussion: percussion normal Cardio Rate: regular rate Rhythm: regular rhythm Heart Sounds: no murmurs GI Palpation: soft, no hepatosplenomegaly, no masses, nontender Rectal Exam: other Other: Rectal exam deferred. Skin Other: Lower back there is a 2-1/2 cm to 3 cm subcutaneous lesion very mobile but right along the midline just to the left side. It does not appear to be subfascial but it is certainly not superficial. It is nontender and shows no signs of infection. Extrem General: normal to inspection, no clubbing, cyanosis or edema Assessment AND Plan Problems 1. Lesion of subcutaneous tissue L98.9 Plan My plan will be to excise this in the OR. Plan to do an excision of Lower back subcutaneous neoplasm. Reviewed the procedure with the patient including risks, including but not limited to infection, bleeding, paresthesia of skin near the excision and seroma. All questions were answered. Coding Level of Care Code Off vis,new,level 3 Diagnoses Lesion of subcutaneous tissue L98.9 08/22/19 0903 <Electronically signed by Henry Funez MD> Date Henry Funez MD Cosigner Signature: Date (if applicable) CC: Sandeep Buckley Start: 08-20-2019 End: 08-20-2019 Esophagus Single Contrast Comments: See Note; NOTES: [facility] Imaging Services [address] [place] [id number] Esophagus Single Contrast MR#: [id number] Acct: [id number] Name: KERWIN STARKS Rep #: [id number] : 1970 F 49 From: Adin Marshall MD PCP: Sandeep Guerrero DO Status: REG CLI Study: Esophagus Single Contrast Date of Exam: 08/20/19 Exam# [id number] Ordering Dr: Sandeep Guerrero DO STUDY: X-RAY - ESOPHAGUS (BARIUM SWALLOW) WITH FLUOROSCOPY REASON FOR EXAM: Female, 49 years old. OROPHARYNGEAL DYSPHAGIA TECHNIQUE: 22 view(s) of the esophagus were obtained following swallowing of barium. FLUOROSCOPY TIME (if supplied): (0:34) minutes/seconds COMPARISON: None. FINDINGS: There is no demonstrated esophageal foreign body. There is no demonstrated stricture or mucosal abnormality. Normal gastroesophageal junction, without a demonstrated hiatal hernia. The patient ingested a 12 mm tablet of barium without difficulty. Normal visualized aortic arch and descending thoracic aorta. Normal visualized pulmonary parenchyma. Normal visualized osseous structures of the thorax. RAD/Esophagus Single Contrast IMPRESSION: Normal plain film x-ray examination (barium swallow) of the esophagus. Electronically Signed: Adin Marshall, at 14:53 EDT , Service support , CC: Sandeep Guerrero DO Developmental Services Worker: Signed Sandeep Guerrero Work Phone: Start: 04-12-2019 End: 04-13-2019 Kidney and Bladder Comments: See Note; NOTES: [facility] Imaging Services [address] [place] [address] Kidney and Bladder MR#: [id number] Acct: [id number] Name: GAVIOTA STARKSEneida Pal Rep #: [id number] : 1970 F 48 From: Adin Marshall MD PCP: Sandeep Guerrero DO Status: REG CLI Study: Kidney and Bladder Date of Exam: 04/12/19 Exam# [id number] Ordering Dr: Sandeep Guerrero DO STUDY: RENAL ULTRASOUND - COMPLETE REASON FOR EXAM: Female, 48 years old. Renal cyst. TECHNIQUE: Ultrasound evaluation of the kidneys was performed with real-time and static oconnor-scale imaging. COMPARISON: Comparison is made with prior examination dated March 12, 2019. FINDINGS: RIGHT KIDNEY: Normal location of the right kidney, which is normal in size. The right kidney measures 11.1 cm x 5.7 Sal by 5.6 cm. There is a normal cortex of the right kidney. The renal cortex measures 1.7 cm. 2 renal cysts are seen. The larger measures 1.0 cm x 0.9 cm x 1 cm. There are no right renal calculi. There is an extra-renal pelvis of the right kidney. There is no distention of the renal calyces. DISTAL RIGHT URETER: There is non-visualization of the distal right ureter. There is no demonstrated right ureterovesical junction calculus. There is a visualized right ureteral jet. LEFT KIDNEY: Normal location of the left kidney, which is normal in size. The left kidney measures 13.2 cm x 4.8 cm x 5.4 cm. There is a normal cortex of the left kidney. The renal cortex measures 1.7 cm. There is a 1.8 cm x 1.4 cm x 1.8 cm cyst. There are no left renal calculi. There is no left hydronephrosis. DISTAL LEFT URETER: There is non-visualization of the distal left ureter. There is no demonstrated left ureterovesical junction calculus. There is a visualized left ureteral jet. BLADDER: The distended urinary bladder has a volume of 342 ml. There is a normal wall thickness of the distended urinary bladder. There is no demonstrated mass within the urinary bladder. There are no demonstrated bladder calculi. US/Kidney and Bladder IMPRESSION: Bilateral renal cysts. Right extrarenal pelvis. Electronically Signed: Adin Marshall, at 10:01 EDT , Service support , CC: Sandeep Guerrero DO Developmental Services Worker: Signed Sandeep Guerrero Work Phone: Start: 03-12-2019 End: 03-12-2019 Liver Comments: See Note; NOTES: [facility] Imaging Services [address] [place] [address] Liver MR#: [id number] Acct: [id number] Name: KERWIN STARKS Rep #: [id number] : 1970 F 48 From: Leandra Ibarra MD PCP: Sandeep Guerrero DO Status: REG CLI Study: Liver Date of Exam: 03/12/19 Exam# [id number] Ordering Dr: Sandeep Guerrero DO STUDY: ABDOMINAL ULTRASOUND - RIGHT UPPER QUADRANT REASON FOR VISIT: Female, 48 years old fatty liver TECHNIQUE: Ultrasound evaluation of the right upper quadrant was performed with real-time and static edwards-scale imaging. TECHNICAL QUALITY: Adequate. COMPARISON: February 27, 2018 CT scan abdomen and pelvis, October 16, 2014 right upper quadrant ultrasound. FINDINGS: Liver: The liver measures 18.2 cm. There is minimal increased echogenicity consistent with fatty infiltration. The bile ducts are within normal limits. There is hepatic color flow. The direction of portal flow is hepatopetal. There is no demonstrated mass lesion. Gallbladder: Normal distended gallbladder. The gallbladder wall measures 2.0 mm. There is a negative sonographic Todd's sign. There is no pericholecystic fluid. There are no gallstones. Common Bile Duct (C.B.D.): The common bile duct measures 3.6 mm. Pancreas: Normal size of the head, of the pancreas. There is normal echogenicity of the pancreas. There is no demonstrated pancreatic mass or cyst. The body and tail of pancreas obscured. Right Kidney: Normal size of the right kidney. The right kidney measures 11.0 x 6.0 x 5.7 cm. Normal renal cortex. The right cortex measures 1.6 cm. There is a stable right renal cyst measuring 1.3 x 0.9 x 1.0 cm. There is no right hydronephrosis. Is visualized 4 x 5 x 4 mm calcification. US/Liver IMPRESSION: Mildly enlarged liver. Minimal evidence of hepatic steatosis. 4 mm stone right kidney, no evidence of hydronephrosis. Several right renal cysts. No evidence of gallstones or evidence of cholecystitis. Electronically Signed: Leandra Ibarra MD at 17:52 EDT Tel , Service support , CC: Sandeep Guerrero DO Developmental Services Worker: Signed Sandeep Guerrero Work Phone: Start: 03-12-2019 End: 03-12-2019 SCREEN MAMM (CAD) W/FAITH BILAT Comments: See Note; NOTES: [facility] Imaging Services [address] [place] [address] SCREEN MAMM (CAD) W/FAITH BILAT MR#: [id number] Acct: [id number] Name: KERWIN STARKS Rep #: [id number] : 1970 F 48 From: Adin Marshall MD PCP: Sandeep Guerrero DO Status: REG CLI Study: SCREEN MAMM (CAD) W/FAITH BILAT Date of Exam: 03/12/19 Exam# [id number] Ordering Dr: Sandeep Guerrero DO MAMMOGRAPHY - BILATERAL SCREENING REASON FOR EXAM: Female, 48 years old. Routine annual screening examination. PERTINENT HISTORY: Mother with breast cancer. Aunt with breast cancer. TECHNIQUE: Digital bilateral breast faith (3D mammographic acquisition) in the CC and MLO projections. 2-D mediolateral oblique (MLO) and craniocaudad (CC) views of both breasts were obtained. CAD: Full Field Digital Mammography with Computer Added Detection was performed. COMPARISON: Comparison is made with prior study dated September 21, 2016 and August 06, 2014. FINDINGS: Breast Composition: The breasts are heterogeneously dense, which may obscure small masses. There are no dominant masses or suspicious calcifications. No other significant abnormalities are identified. There has been no significant change since the prior study. BI/SCREEN MAMM (CAD) W/FAITH BILAT IMPRESSION: Stable bilateral screening mammogram. Yearly follow-up mammogram recommended. (A) ASSESSMENT CATEGORY: BIRADS Category 1: Negative. A letter regarding these results will be sent to the patient by the facility within 30 days. Approximately 10% of breast cancers are not detected by mammography. A normal mammogram should not delay biopsy of a clinically suspicious abnormality. [id number] Electronically Signed: Adin Garrettalee, at 12:32 EDT , Service support , CC: Sandeep Guerrero DO Developmental Services Worker: Signed Sandeep Guerrero Work Phone: Start: 03-12-2019 End: 03-12-2019 Thyroid Comments: See Note; NOTES: [facility] Imaging Services [address] [place] [address] Thyroid MR#: [id number] Acct: [id number] Name: KERWIN STARKS Rep #: [id number] : 1970 F 48 From: Leandra Ibarra MD PCP: Sandeep Guerrero DO Status: REG CLI Study: Thyroid Date of Exam: 03/12/19 Exam# [id number] Ordering Dr: Sandeep Guerrero DO STUDY: THYROID ULTRASOUND REASON FOR EXAM: Female, 48 years old. Nodule TECHNIQUE: Ultrasound evaluation of the thyroid was performed with real-time and static edwards-scale imaging. COMPARISON: October 24, 2017 ultrasound thyroid FINDINGS: RIGHT LOBE: The right lobe of the thyroid gland measures 6.0 x 2.1 x 2.0 cm. There is a heterogeneous echotexture. There are multiple small nodules seen throughout the right side thyroid gland. There is a avascular dominant-appearing nodule that measures 7.2 x 6.3 x 7.7 mm. LEFT LOBE: The left lobe of the thyroid gland measures 5.2 x 1.9 x 1.9 cm cm. There is a heterogeneous echotexture. Multiple small nodules seen throughout the left thyroid gland. There is a larger nodule without significant internal vascularity measuring approximately 9.6 x 5.5 mm. ISTHMUS: The isthmus measures 5.7 mm. . The regional lymph nodes are normal. Compared to prior study there is little interval change. The right lower hypoechoic nodule and area is stable. On the left side there is a measurement of 1.1 x 0.5 cm which is also similar to today's study. US/Thyroid IMPRESSION: Stable thyroid goiter with multiple small nodules with measurements of the most apparent small nodules or areas that are stable since prior study. Electronically Signed: Leandra Ibarra MD at 16:59 EDT Tel , Service support , CC: Sandeep Guerrero DO Developmental Services Worker: Signed Sandeep Pat Phone: Start: 02-27-2018 End: 02-27-2018 Emergency Department Summary Comments: See Note; NOTES: [facility] Medical Records Department [address] [place] [address] Emergency Department Summary 02/27/18 0248 MR#: [id number] Acct: [id number] Name: KERWIN STARKS Rep #: [id number] : 1970 47 From: Morenita Ellis MD PCP: Sandeep Guerrero DO Status: DEP ER - ER Visit Summary Date of Service: 02/27/18 Chief Complaint: Flank pain History of Present Illness: The patient is a 47 F with bilateral flank pain, right worse than left over the past several days. Patient states she has had some mild dysuria and hematuria. She has had some chills but no fever. She does have a history of kidney stones. Physical Examination: Vital signs are unremarkable. Patient is sitting upright in bed no acute distress. Head neck examination is unremarked Heart is regular rate and rhythm. Lung sounds are clear. Abdomen is soft with no focal tenderness. Back examination was no CVA tenderness. She does have reproducible tenderness in the bilateral lower lumbar paraspinals. Test Results: CBC and chemistry studies are significant only for hemoglobin 10.3. Urinalysis shows 150 blood on macroscopic examination, but 0 RBCs on microscopic exam. Patency test is negative. CT flank shows very small bilateral nonobstructing renal calculi. Small hiatal hernia is noted. Emergency Department Course and Treatment: Patient was given Toradol, morphine, followed by dose of Dilaudid. Test results are discussed with her at length. She may have recently passed a stone, but this time I see no sign of obstructing stone or hydronephrosis. Should be treated with analgesics and will follow up with Dr. Flores as needed. Treatment Plan: [] Disposition: Discharge Impression: Flank pain, uncertain etiology This note was generated with [employer] dictation software. It may contain incorrect words, spelling, and punctuation that were not noted in review of the chart prior to signing ED Disposition - Plan for ED Patient: Disposition: Home or Assisted Living Chief Complaint: Flank Pain Instructions: ED Flank Pain Uncertain Cause Prescriptions: Hydrocodone Bitart/Apap 5-325 [Nunnelly 5MG-325MG] 1 tablet PO Q4H PRN PRN 2 Days #10 tablet PRN Reason: Pain Ketorolac [Toradol] 10 mg PO Q6H PRN #14 tablet PRN Reason: Pain Referrals: Sandeep Guerrero DO [Primary Care Provider] - Laureano Flores MD [STAFF PHYSICIAN] - As Needed What to do if you have Problems For any increased pain, shortness of breath, bleeding, nausea or vomiting, chest pain, or any unexpected problems, contact your Primary Care Provider. Call [facility] ([phone]) or report to the closest Emergency Room. Call 911 if necessary. 02/27/18 2011 <Electronically signed by Morenita Ellis MD> Date Morenita Ellis MD Cosigner Signature (If Indicated): Date CC: Sandeep Fast DO Sandeep Fast Start: 02-27-2018 End: 02-27-2018 Discharge Instruction Comments: See Note; NOTES: [facility] Medical Records Department [address] [place] [address] Discharge Instruction 02/27/18 0249 MR#: [id number] Acct: [id number] Name: KERWIN STARKS Rep #: [id number] : 1970 47 From: Morenita Ellis MD PCP: Sandeep Guerrero DO Status: REG ER ED Disposition - Plan for ED Patient: Disposition: Home or Assisted Living Chief Complaint: Flank Pain Instructions: ED Flank Pain Uncertain Cause Prescriptions: Hydrocodone Bitart/Apap 5-325 [Nunnelly 5MG-325MG] 1 tablet PO Q4H PRN PRN 2 Days #10 tablet PRN Reason: Pain Ketorolac [Toradol] 10 mg PO Q6H PRN #14 tablet PRN Reason: Pain Referrals: Sandeep Guerrero DO [Primary Care Provider] - Laureano Flores MD [STAFF PHYSICIAN] - As Needed What to do if you have Problems For any increased pain, shortness of breath, bleeding, nausea or vomiting, chest pain, or any unexpected problems, contact your Primary Care Provider. Call [facility] ([phone]) or report to the closest Emergency Room. Call 911 if necessary. 02/27/18 0250 <Electronically signed by Morenita Ellis MD> Date Morenita Ellis MD Cosigner Signature (If Indicated): Date CC: Sandeep Fast DO Sandeep Fast Start: 02-27-2018 End: 02-27-2018 Abdomen/Pelvis without Cont Comments: See Note; NOTES: [facility] Imaging Services [address] [place] [address] Abdomen/Pelvis without Cont MR#: [id number] Acct: [id number] Name: KERWIN STARKS Rep #: [id number] : 1970 F 47 From: Lamin Ly PCP: Sandeep Guerrero DO Status: REG ER Study: Abdomen/Pelvis without Cont Date of Exam: 02/27/18 Exam# [id number] Ordering Dr: Morenita Ellis MD STUDY: CT ABDOMEN AND PELVIS WITHOUT CONTRAST REASON FOR EXAM: Female, 47 years old. Bilateral flank pain. RADIATION DOSAGE (If Supplied By Facility): CTDIvol = ( 10.50 ) mGy, DLP = ( 529.75 ) mGycm TECHNIQUE: Transaxial images were obtained from the dome of the diaphragm to the symphysis pubis without oral contrast, and without intravenous contrast. Sagittal and coronal images were reconstructed. Individualized dose optimization techniques were used for this CT. COMPARISON: July 31, 2013. Right upper quadrant ultrasound October 24, 2017. FINDINGS: The visualized lung bases are unremarkable. The visualized portions of the heart are within normal limits. Small hiatal hernia. Normal liver. The liver demonstrates normal attenuation. CT is more accurate and less subjective than ultrasound for identifying hepatic steatosis. The dome of the right lobe under the hemidiaphragm not included on the study. Normal gallbladder and extrahepatic biliary system. Normal spleen. Normal pancreas. Normal bilateral adrenal glands. Scattered 1 to 2 mm nonobstructing renal calculi mid pole of both kidneys. Normal visualized stomach. Normal small intestine. Normal colon. The appendix is well visualized and appears normal. Normal abdominal aorta. Normal inferior vena cava. Normal retroperitoneum. No intra-abdominal free air. Normal urinary bladder. Uterus grossly normal. No adnexal masses seen. Normal abdominal wall. Normal osseous structures. CT/Abdomen/Pelvis without Cont IMPRESSION: Very small bilateral nonobstructing renal calculi. Normal liver without evidence of fatty alteration. Dome of the right lobe not included. Small hiatal hernia. Electronically Signed: Lamin Ly MD at 2:41 EDT , Service support , CC: Sandeep Guererro DO; Morenita Ellis MD Developmental Services Worker: Signed Sandeep Guerrero Start: 10-24-2017 End: 10-24-2017 Liver Comments: See Note; NOTES: [facility] Imaging Services [address] [place] [address] Liver MR#: [id number] Acct: [id number] Name: KERWIN STARKS Rep #: [id number] : 1970 F 47 From: Adin Marshall MD PCP: Sandeep Guerrero DO Status: REG CLI Study: Liver Date of Exam: 10/24/17 Exam# [id number] Ordering Dr: Sandeep Guerrero DO STUDY: ABDOMINAL ULTRASOUND - RIGHT UPPER QUADRANT REASON FOR VISIT: Female, 47 years old. Fatty infiltration of the liver. TECHNIQUE: Ultrasound evaluation of the right upper quadrant was performed with real-time and static edwards-scale imaging. TECHNICAL QUALITY: Adequate. COMPARISON: Comparison is made with prior study dated October 16, 2014. FINDINGS: Liver: The liver measures 15 point cm. There is increased echogenicity consistent with fatty infiltration. The bile ducts are within normal limits. There is hepatic color flow. The direction of portal flow is hepatopetal. There is no demonstrated mass lesion. Gallbladder: Normal distended gallbladder. The gallbladder wall measures 3.0 mm. There is a negative sonographic Todd's sign. There is no pericholecystic fluid. There are no gallstones. Common Bile Duct (C.B.D.): The common bile duct measures 3.9 mm. Pancreas: There is nonvisualization of the pancreas due to overlying bowel gas. Right Kidney: Normal size of the right kidney. The right kidney measures 10.9 cm x 6.0 cm x 5.1 cm. Normal renal cortex. The right cortex measures 1.2 cm. There is a 1.2 cm x 1.1 cm x 1.2 cm renal cyst. There is no right hydronephrosis. US/Liver IMPRESSION: Fatty infiltration of the liver. Electronically Signed: Aidn Marshall MD at 15:26 EDT Tel [phone], Service support , CC: Sandeep Guerrero DO Developmental Services Worker: Signed Sandeep Guerrero Work Phone: Start: 10-24-2017 End: 10-24-2017 Thyroid Comments: See Note; NOTES: [facility] Imaging Services [address] [place] [address] Thyroid MR#: [id number] Acct: [id number] Name: KERWIN STARKS Rep #: [id number] : 1970 F 47 From: Adin Marshall MD PCP: Sandeep Guerrero DO Status: REG CLI Study: Thyroid Date of Exam: 10/24/17 Exam# [id number] Ordering Dr: Sandeep Guerrero DO STUDY: THYROID ULTRASOUND REASON FOR EXAM: Female, 47 years old. History of thyroid nodule. TECHNIQUE: Ultrasound evaluation of the thyroid was performed with real-time and static edwards-scale imaging. COMPARISON: Comparison is made with prior study dated September 08, 2016 and June 05, 2015. FINDINGS: RIGHT LOBE: The right lobe of the thyroid gland is enlarged and measures 6.4 cm x 2.3 cm x 2.1 cm. There is a heterogeneous echotexture. There is a 1.1 cm x 0.9 cm x 0.9 cm hypoechoic solid nodule in the midportion of the right lobe. LEFT LOBE: The left lobe of the thyroid gland is enlarged and measures 5.0 cm x 2.4 cm x 1.7 cm. There is a heterogeneous echotexture. There is a 1.9 cm x 1.3 cm x 0.8 cm solid nodule in the upper pole this is unchanged. ISTHMUS: The isthmus measures 5.0 mm. The regional lymph nodes are normal. US/Thyroid IMPRESSION: Enlargement of the thyroid gland. Heterogeneous echotexture. Stable bilateral thyroid nodule. Electronically Signed: Adin Marshall MD at 15:28 EDT Tel [phone], Service support , CC: Sandeep Guerrero DO Developmental Services Worker: Signed Sandeep Guerrero Work Phone: Start: 09-23-2016 End: 09-23-2016 Breast Limited Unilateral Comments: See Note; NOTES: [facility] Imaging Services [address] [place] [address] Verdana 4d Breast Limited Unilateral MR#: [id number] Acct: [id number] Name: KERWIN STARKS Rep #: [id number] : 1970 F 46 From: Adin Marshall MD PCP: Sandeep Guerrero DO Status: REG CLI Study: Breast Limited Unilateral Date of Exam: 09/23/16 Exam# [id number] Ordering Dr: Sandeep Guerrero DO STUDY: ULTRASOUND BREAST - LEFT REASON FOR EXAM: Female, 46 years old. Abnormal screening mammogram. TECHNIQUE: Axial and longitudinal images of the LEFT breast were performed with a high resolution ultrasound transducer. COMPARISON: Comparison is made with prior mammogram dated earlier in the day and prior mammogram dated September 21, 2016. FINDINGS: LEFT Breast: The upper outer quadrant of the left breast was examined. There is homogeneous fibroglandular tissue. No sonographic abnormality is seen. US/Breast Limited Unilateral IMPRESSION: Unremarkable sonographic examination of the breast. ASSESSMENT CATEGORY: BIRADS Category 2: Benign. A letter regarding these results will be sent to the patient by the facility within 30 days. Electronically Signed: Adin Marshall MD at 15:33 EDT Tel [phone], Service support , CC: Sandeep Guerrero DO Developmental Services Worker: Signed Sandeep Guerrero Work Phone: Start: 09-23-2016 End: 09-23-2016 DIAG MAMM W/CAD, UNILAT Comments: See Note; NOTES: [facility] Imaging Services [address] [place] [address] Verdana 4d DIAG MAMM W/CAD, UNILAT MR#: [id number] Acct: [id number] Name: KERWIN STARKS Rep #: [id number] : 1970 F 46 From: Adin Marshall MD PCP: Sandeep Guerrero DO Status: REG CLI Study: DIAG MAMM W/CAD, UNILAT Date of Exam: 09/23/16 Exam# [id number] Ordering Dr: Sandeep Guerrero DO MAMMOGRAPHY - UNILATERAL DIAGNOSTIC: LEFT BREAST REASON FOR EXAM: Female, 46 years old. Abnormal screening mammogram. PERTINENT HISTORY: Non-contributory. TECHNIQUE: Compression spot views of the left breast in the mediolateral and craniocaudad views were obtained. CAD: Full Field Digital Mammography with Computer Added Detection was performed. COMPARISON: Comparison is made with prior study dated September 21, 2016. FINDINGS: Breast Composition: The breasts are heterogeneously dense, which may obscure small masses. There are no dominant masses or suspicious calcifications. The area of concern most likely represents superimposition of tissue. No other significant abnormalities are identified. HPBI/DIAG MAMM W/CAD, UNILAT IMPRESSION: Stable unilateral diagnostic mammogram. One year follow-up mammogram recommended. (A) ASSESSMENT CATEGORY: BIRADS Category 2: Benign. A letter regarding these results will be sent to the patient by the facility within 30 days. Approximately 10% of breast cancers are not detected by mammography. A normal mammogram should not delay biopsy of a clinically suspicious abnormality. Electronically Signed: Adin Marshall MD at 15:32 EDT Tel [phone], Service support , CC: Sandeep Guerrero DO Developmental Services Worker: Signed Sandeep Guerrero Work Phone: Start: 09-21-2016 End: 09-21-2016 SCREENING MAMM (CAD), BILAT Comments: See Note; NOTES: [facility] Imaging Services [address] [place] [address] Verdana 4d SCREENING MAMM (CAD), BILAT MR#: [id number] Acct: [id number] Name: KERWIN STARKS Rep #: [id number] : 1970 F 46 From: Adin Marshall MD PCP: Sandeep Guerrero DO Status: REG CLI Study: SCREENING MAMM (CAD), BILAT Date of Exam: 09/21/16 Exam# [id number] Ordering Dr: Sandeep Guerrero DO MAMMOGRAPHY - BILATERAL SCREENING REASON FOR EXAM: Female, 46 years old. Routine annual screening examination. PERTINENT HISTORY: Mother with breast cancer. Aunt with breast cancer. TECHNIQUE: Digital bilateral breast faith (3D mammographic acquisition) in the CC and MLO projections. 2-D mediolateral oblique (MLO) and craniocaudad (CC) views of both breasts were obtained. CAD: Full Field Digital Mammography with Computer Added Detection was performed. COMPARISON: Comparison is made with prior study dated August 06, 2014. FINDINGS: Breast Composition: The breasts are heterogeneously dense, which may obscure small masses. Focal area of architectural distortion is seen in the superior aspect of the left breast on the MLO view. This most likely represents superimposition of tissue. The patient will be recalled for additional views including compression spot views. There is a stable 8.1 mm well-defined nodule in the axillary portion of the right breast most likely representing a small lymph node. No other significant abnormalities are identified. HPBI/SCREENING MAMM (CAD), BILAT IMPRESSION: Focal area of architectural distortion in the superior aspect of the left breast most likely representing superimposition of tissue. The patient will be recalled for additional views including 90 degree lateral and compression spot views. Recall Side: Left Breast ASSESSMENT CATEGORY: BIRADS Category 0: Incomplete. Need additional imaging evaluation. A letter regarding these results will be sent to the patient by the facility within 30 days. Approximately 10% of breast cancers are not detected by mammography. A normal mammogram should not delay biopsy of a clinically suspicious abnormality. [id number] Electronically Signed: Adin Marshall MD at 9:21 EDT Tel [phone], Service support [phone], CC: Sandeep Guerrero DO Developmental Services Worker: Signed Sandeep Pat Phone: Start: 09-08-2016 End: 09-08-2016 Liver Comments: See Note; NOTES: [facility] Imaging Services [address] [place] [address] Verdana 4d Liver MR#: [id number] Acct: [id number] Name: KERWIN STARKS Rep #: [id number] : 1970 F 46 From: Adin Marshall MD PCP: Sandeep Guerrero DO Status: REG CLI Study: Liver Date of Exam: 09/08/16 Exam# [id number] Ordering Dr: Sandeep Guerrero DO STUDY: ABDOMINAL ULTRASOUND - RIGHT UPPER QUADRANT REASON FOR VISIT: Female, 46 years old. History of fatty infiltration of the liver. TECHNIQUE: Ultrasound evaluation of the right upper quadrant was performed with real-time and static edwards-scale imaging. TECHNICAL QUALITY: Adequate. COMPARISON: Comparison is made with prior examination dated October 16, 2014. FINDINGS: Liver: The liver measures 15.8 cm. There is increased echogenicity consistent with mild degree of fatty infiltration. The bile ducts are within normal limits. There is hepatic color flow. The direction of portal flow is hepatopetal. There is no demonstrated mass lesion. Gallbladder: Normal distended gallbladder. The gallbladder wall measures 2.8 mm. There is a negative sonographic Todd's sign. There is no pericholecystic fluid. There are no gallstones. Common Bile Duct (C.B.D.): The common bile duct measures 4.8 mm. Pancreas: Normal size of the head, body and tail of the pancreas. There is normal echogenicity of the pancreas. There is no demonstrated pancreatic mass or cyst. Right Kidney: Normal size of the right kidney. The right kidney measures 10.8 cm x 4.7 cm x 6.2 cm. Normal renal cortex. The right cortex measures 1.2 cm. There is an 8 mm x 8 mm x 5 mm renal cyst. There is no right hydronephrosis. US/Liver IMPRESSION: Stable examination. Mild degree of fatty infiltration of the liver. Electronically Signed: Adin Marshall MD at 11:24 EDT Tel [phone], Service support [phone], CC: Sandeep Guerrero DO Developmental Services Worker: Signed Sandeep Guerrero Work Phone: Start: 09-08-2016 End: 09-08-2016 Thyroid Comments: See Note; NOTES: [facility] Imaging Services [address] [place] [address] Tori 4d Thyroid MR#: [id number] Acct: [id number] Name: KERWIN STARKS Rep #: [id number] : 1970 F 46 From: Adin Marshall MD PCP: Sandeep Guerrero DO Status: REG CLI Study: Thyroid Date of Exam: 09/08/16 Exam# [id number] Ordering Dr: Sandeep Guerrero DO STUDY: THYROID ULTRASOUND REASON FOR EXAM: Female, 46 years old. Thyroid nodule. Difficulty swallowing. TECHNIQUE: Ultrasound evaluation of the thyroid was performed with real-time and static edwards-scale imaging. COMPARISON: Comparison is made with prior examination dated August 06, 2014. FINDINGS: RIGHT LOBE: The right lobe of the thyroid gland is enlarged and measures 6.6 cm x 3.1 size by 2.2 cm. There is a heterogeneous echotexture. Once again, multiple nodules are seen throughout the lobe. The largest is in the mid to lower aspect of the right lobe. It is of inhomogeneous echotexture and measures 1.1 cm x 0.9 cm x 1.2 cm. This is essentially unchanged. LEFT LOBE: The left lobe of the thyroid gland is enlarged and measures 5.1 cm x 2.2 cm x 1.7 cm. There is a heterogeneous echotexture. Once again, multiple nodules are seen. The largest measures 2 cm x 1.3 cm x 0.9 cm. This is a complex solid and cystic nodule and is in the upper pole. ISTHMUS: The isthmus is enlarged and measures 6.0 mm. The regional lymph nodes are normal. US/Thyroid IMPRESSION: Multiple bilateral thyroid nodules. There has been essentially no change. Electronically Signed: Adin Marshall MD at 12:29 EDT Tel [phone], Service support [phone], CC: Sandeep Guerrero DO Developmental Services Worker: Signed Sandeep Guerrero Work Phone: Start: 11-13-2014 End: 11-14-2014 Hepatobilliary Imaging Comments: See Note; NOTES: [facility] Imaging Services [address] [place] [address] Nuclear Medicine Report MR#: [id number] Acct: [id number] Name: KERWIN STARKS Rep #: [id number] : 1970 F 44 From: Leodan Lawson DO PCP: Sandeep Guerrero DO Status: REG CLI Study: Hepatobilliary Imaging Date of Exam: 11/13/14 Exam# [id number] Ordering Dr: Sandeep Guerrero DO CLINICAL: 44-year-old female with reported history of right upper quadrant abdominal pain and nausea. RADIONUCLIDE HEPATOBILIARY SCINTIGRAPHY COMPARISON: Abdominal ultrasound report 10/16/14 FINDINGS: Following the intravenous administration of 5.2 mCi of Tc Mebrofenin, hepatobiliary images reveal: 1. Relatively prompt and homogeneous radiopharmaceutical concentration is noted by a normal sized liver. No parenchymal defects are identified. 2. Gallbladder activity is identified at 60 minutes post radiopharmaceutical administration. 3. Small intestinal tract is observed at 30 minutes following tracer injection. 4. Washout of the radiopharmaceutical by the hepatic parenchyma appears qualitatively delayed. Cholecystokinin (0.02 ug/kg) was administered intravenously over a 30-minute period. The post CCK gallbladder ejection fraction calculated at 20 minutes following Cholecystokinin administration was noted to be 51.7 % (normal greater than 35%). During 30 minutes of post CCK imaging, there is no scintigraphic evidence of reflux of the radiotracer into the common hepatic duct or refilling of the gallbladder. There is scintigraphic evidence of trace post CCK duodenal gastric reflux. IMPRESSION: 1. A gallbladder ejection fraction calculated to be greater than 35% following the administration of Cholecystokinin makes the probability of functional hepatobiliary disease (gallbladder and/or sphincter of Oddi dyskinesia) and/or organic hepatobiliary disease (chronic acalculous cholecystitis and/or cystic duct syndrome) to be low. (Mallika Greenfield et al, Journal of Nuclear Medicine 32:1695, 1990). 2. There is scintigraphic evidence of subtle post CCK duodenal-gastric reflux. (Lewis et al, Nucl Med Jojo Rosina Press pg. 35, 1981). 3. 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 Electronically Signed: Leodan Lawson DO at 8:51 EDT Tel [phone], Service support [phone], CC: Sandeep Guerrero DO Developmental Services Worker: Signed Sandeep Guerrero Work Phone: Start: 10-16-2014 End: 10-16-2014 Gallbladder Comments: See Note; NOTES: [facility] Imaging Services [address] [place] [address] Ultrasound Report MR#: [id number] Acct: [id number] Name: KERWIN STARKS Rep #: [id number] : 1970 F 44 From: Adin Marshall MD PCP: Sandeep Guerrero DO Status: REG CLI Study: Gallbladder Date of Exam: 10/16/14 Exam# [id number] Ordering Dr: Sandeep Guerrero DO STUDY: ABDOMINAL ULTRASOUND - RIGHT UPPER QUADRANT REASON FOR VISIT: Female, 44 years old. Intermittent right upper quadrant pain. TECHNIQUE: Ultrasound evaluation of the right upper quadrant was performed with real-time and static edwards-scale imaging. TECHNICAL QUALITY: Adequate. COMPARISON: None. FINDINGS: Liver: The liver measures 15.6 cm. There is increased echogenicity consistent with mild fatty infiltration. The bile ducts are within normal limits. There is hepatic color flow. The direction of portal flow is hepatopetal. There is no demonstrated mass lesion. Gallbladder: Normal distended gallbladder. The gallbladder wall measures 2.8 mm. There is a negative sonographic Todd's sign. There is no pericholecystic fluid. There are no gallstones. Common Bile Duct (C.B.D.): The common bile duct measures 5.0 mm. Pancreas: Normal size of the head, body and tail of the pancreas. There is normal echogenicity of the pancreas. There is no demonstrated pancreatic mass or cyst. Right Kidney: Normal size of the right kidney. The right kidney measures 12.6 cm x 6.4 cm x 6.1 cm. Normal renal cortex. The right cortex measures 2.1 cm. There is no demonstrated renal mass or cyst. There is no right hydronephrosis. IMPRESSION: Mild degree of fatty infiltration of the liver. Electronically Signed: Adin Marshall MD at 9:34 EDT Tel [phone], Service support [phone], CC: Sandeep Guerrero DO Developmental Services Worker: Signed Sandeep Guerrero Work Phone: Start: 10-15-2014 End: 10-16-2014 Thyroid Uptake Single or Mult Comments: See Note; NOTES: [facility] Imaging Services [address] [place] [address] Nuclear Medicine Report MR#: [id number] Acct: [id number] Name: KERWIN STARKS Rep #: [id number] : 1970 F 44 From: Leodan Lawson DO PCP: Sandeep Guerrero DO Status: REG CLI Study: Thyroid Uptake Single or Mult Date of Exam: 10/15/14 Exam# [id number] Ordering Dr: Sandeep Guerrero DO CLINICAL: 44-year-old female with reported history of thyroid nodularity. I-123 THYROID UPTAKE and SCAN COMPARISON: Thyroid ultrasound report 08/06/14 FINDINGS: The patient was administered a 303 uCi I-123 capsule by mouth. The 4-hour I-123 radioactive iodine thyroidal uptake was calculated to be 22.9 % (normal 5 to to 25 %). The 24-hour I-123 radioactive iodine thyroidal uptake was calculated to be 58.5 % (normal 5 to 40 %). The I-123 thyroid scan demonstrates heterogeneous radiopharmaceutical concentration throughout both lobes of a U-shaped thyroid gland. There appears to be a dominant hypofunctioning nodule involving the mid-inferior pole of the right lobe thyroid colloid. IMPRESSION: 1. UPPER LIMITS OF NORMAL 4- and ABNORMAL ELEVATED 24-hour I-123 radioactive iodine thyroidal uptakes. 2. The I-123 thyroid scan in conjunction with the calculated iodine uptake values is most consistent with the presence of a toxic multinodular goiter. Correlation with in vitro thyroid function studies is recommended. The incidence of malignant transformation of hypofunctioning nodules in a multinodular thyroid gland in the absence of previous head and neck radiation is less than 5%. Electronically Signed: Leodan Lawson DO at 22:09 EDT Tel [phone], Service support [phone], CC: Sandeep Guerrero DO Developmental Services Worker: Signed Sandeep Guerrero Work Phone: Start: 08-06-2014 End: 08-06-2014 Julia Engle Digital AND CAD Comments: See Note; NOTES: [facility] Imaging Services [address] [place] [address] Breast Imaging Report MR#: [id number] Acct: [id number] Name: KERWIN STARKS Kae Rep #: [id number] : 1970 F 44 From: Adin Marshall MD PCP: Chencho Courtney DO Status: REG CLI Study: Bilat Scrn Digital AND CAD Date of Exam: 08/06/14 Exam# [id number] Ordering Dr: Sandeep Guerrero DO MAMMOGRAPHY - BILATERAL SCREENING REASON FOR EXAM: Female, 44 years old. Routine annual screening examination. PERTINENT HISTORY: Mother with breast cancer. TECHNIQUE: Digital examination. Mediolateral oblique (MLO) and craniocaudad (CC) views of both breasts were obtained. CAD: CAD was performed on this study. COMPARISON: None. Baseline examination. FINDINGS: Breast Composition: The breasts are heterogeneously dense, which may obscure small masses. There are no dominant masses or suspicious calcifications. No other significant abnormalities are identified. IMPRESSION: Negative screening mammogram. Yearly followup recommended. (A) ASSESSMENT CATEGORY: BIRADS Category 2: Benign. A letter regarding these results will be sent to the patient by the facility within 30 days. Approximately 10% of breast cancers are not detected by mammography. A normal mammogram should not delay biopsy of a clinically suspicious abnormality. Electronically Signed: Adin Marshall MD at 12:38 EST Tel [phone], Service support [phone], CC: Chencho Courtney DO; Sandeep Guerrero DO Developmental Services Worker: Signed Sandeep Guerrero Work Phone: Start: 08-06-2014 End: 08-06-2014 Thyroid Comments: See Note; NOTES: [facility] Imaging Services [address] [place] [address] Ultrasound Report MR#: [id number] Acct: [id number] Name: KERWIN STARKS Rep #: [id number] : 1970 F 44 From: Adin Marshall MD PCP: Chencho Courtney DO Status: REG CLI Study: Thyroid Date of Exam: 08/06/14 Exam# [id number] Ordering Dr: Sandeep Guerrero DO STUDY: THYROID ULTRASOUND REASON FOR EXAM: Female, 44 years old. Thyroid goiter. TECHNIQUE: Ultrasound evaluation of the thyroid was performed with real-time and static edwards-scale imaging. COMPARISON: Comparison is made with prior CT scan of the neck dated June 14, 2012. FINDINGS: RIGHT LOBE: The right lobe of the thyroid gland is enlarged and measures 7.2 cm x 2.6 cm 2.8 cm. There is a heterogeneous echotexture. Multiple nodules of varying sizes are seen throughout the lobe. These are cystic to complex cystic nodules. LEFT LOBE: The left lobe of the thyroid gland is enlarged and measures 5.0 cm x 2.0 cm x 2.0 cm. There is a heterogeneous echotexture. Multiple cystic nodules are seen throughout the lobe. ISTHMUS: The isthmus measures 7.0 mm. The regional lymph nodes are normal. IMPRESSION: Diffuse enlargement of both lobes of the thyroid gland worse on the right side with multiple cystic and complex cystic nodules in both lobes suggestive of goiter is enlargement. Is also evidence of increased blood flow. Correlation with a nuclear medicine thyroid scan and uptake is recommended. Electronically Signed: Adin Marshall MD at 11:37 EST Tel [phone], Service support [phone], CC: Chencho Courtney DO; Sandeep Guerrero DO Developmental Services Worker: Signed Sandeep Puente Fast Work Phone: Bacteria identified in Urine by Culture Lithotripsy Trinh Manchak Lithotripsy Trinh Manchak Lithotripsy Trinh Manchak Lithotripsy Sandeep A Fast Work Phone: Lithotripsy Trinh Manchak Lithotripsy Trinh Manchak Lithotripsy Trinh Manchak Lithotripsy Trinh Manchak [employer] Lithotripsy Sandeep A Fast DO Work Phone: Lithotripsy Sandeep A Fast DO Work Phone: Lithotripsy Trinh Manchak [employer] Lithotripsy Queenie Todd M A Lithotripsy Trinh Manchak [employer]ER Urine culture Plan of Treatment Date Care Activity Detail Author Start: 12-04-2024 X-ray of lumbosacral spine L/S Spine Min 4 Views [facility] Start: 02-18-2023 Assay of citrate CITRATE (24962) [facility]; [facility] Work Phone: Comment on above: 24 hour urine Start: 02-18-2023 Assay of oxalate OXALATE (75900) [facility]; [facility] Work Phone: Comment on above: 24 hour urine Start: 02-18-2023 Ph body fluid not elsewhere specified PH, Urine (48548) [facility]; [facility] Work Phone: Start: 02-18-2023 Calcium urine quantitative timed specimen URINE CALCIUM ZANDRA TIMED 24 Hour (55937) [facility]; [facility] Work Phone: Start: 02-16-2023 25 hydroxy includes fractions if performed Vitamin D Hydroxy (68971) [facility]; [facility] Work Phone: Comment on above: jun Start: 02-16-2023 Alpha-fetoprotein serum [id number]-NCAD M (57122) [facility]; [facility] Work Phone: Comment on above: jun Start: 02-16-2023 Blood count complete auto&auto difrntl wbc CBC with auto diff (59968) [facility]; [facility] Work Phone: Comment on above: jun Start: 02-16-2023 Comprehensive metabolic panel METABOLIC PANEL, COMPREHENSIVE (36688) [facility]; [facility] Work Phone: Comment on above: jun Start: 02-16-2023 Hemoglobin glycosylated a1c HGB A1C (24169) [facility]; [facility] Work Phone: Comment on above: jun Start: 02-16-2023 Lipid panel LIPID PANEL (35482) [facility]; [facility] Work Phone: Comment on above: jun Start: 02-16-2023 Procedure Education Eprescribed prescriptions (G8553) [facility]; [facility] Work Phone: Start: 02-11-2023 COVID-19 Vaccine ( season) COVID-19 Vaccine ( season) [facility] Start: 02-11-2023 Influenza vaccination Influenza Vaccine (#1) [facility] Start: 01-28-2023 Urnls dip stick/tablet reagent auto microscopy Urinalysis, Complete W/ Microscopic Examination with reflex to urine culture, routine (52941) [facility]; [facility] Work Phone: Start: 01-24-2023 [facility] Start: 01-24-2023 Bacteria identified in Urine by Culture Urine Culture [facility] Start: 10-13-2022 [facility] Start: 10-12-2022 [facility] Start: 02-18-2022 Anes lithotrp xtrcorp shock wave w/o water bath ANESTH KIDNEY STONE DESTRUCT [facility] Work Phone: Start: 02-18-2022 Cysto/uretero w/lithotripsy &indwell stent insrt CYSTO/URETERO W/LITHOTRIPSY [facility] Work Phone: Start: 02-18-2022 Patient discharge [facility] Work Phone: Start: 02-04-2022 Patient discharge [facility] Work Phone: Start: 02-04-2022 Anes lithotrp xtrcorp shock wave w/o water bath ANESTH KIDNEY STONE DESTRUCT [facility] Work Phone: Start: 02-04-2022 Cysto/uretero w/lithotripsy &indwell stent insrt CYSTO/URETERO W/LITHOTRIPSY [facility] Work Phone: Start: 11-17-2021 Procedure Education Eprescribed prescriptions (G8553) [facility]; [facility] Work Phone: Start: 11-11-2021 Lipid panel LIPID PANEL (32719) [facility]; [facility] Work Phone: Start: 11-11-2021 Comprehensive metabolic panel METABOLIC PANEL, COMPREHENSIVE (91010) [facility]; [facility] Work Phone: Start: 11-11-2021 Blood count complete auto&auto difrntl wbc CBC W/AUTO DIFF WBC (89081) [facility]; [facility] Work Phone: Start: 11-11-2021 25 hydroxy includes fractions if performed Vitamin D Hydroxy (71055) [facility]; [facility] Work Phone: Start: 11-11-2021 Hemoglobin glycosylated a1c HGB A1C (85792) [facility]; [facility] Work Phone: Start: 07-29-2021 Cytp cerv/vag auto thin layer prep mnl screen Thin prep Pap (99337) [facility]; [facility] Work Phone: Start: 07-29-2021 Procedure Education Eprescribed prescriptions (G8553) [facility]; [facility] Work Phone: Start: 07-29-2021 Provider Instructions for Treatment Pap/Pelvic/Bimanual/Re ctal/Breast Exam was done. [facility]; [facility] Work Phone: Start: 06-10-2021 Procedure Education Eprescribed prescriptions (G8553) [facility]; [facility] Work Phone: Start: 06-10-2021 Provider Instructions for Treatment Follow up if no improvement or if symptoms worsen [facility]; [facility] Work Phone: Start: 06-01-2021 Procedure Education Eprescribed prescriptions (G8553) [facility]; [facility] Work Phone: Start: 05-26-2021 Procedure Education Eprescribed prescriptions (G8553) [facility]; [facility] Work Phone: Start: 05-26-2021 Blood count complete auto&auto difrntl wbc CBC W/AUTO DIFF WBC (22801) [facility]; [facility] Work Phone: Start: 05-26-2021 Comprehensive metabolic panel METABOLIC PANEL, COMPREHENSIVE (83438) [facility]; [facility] Work Phone: Start: 2021 Zoster Vaccines (1 of 2) Zoster Vaccines (1 of 2) [facility] Start: 11-12-2020 Procedure Education Eprescribed prescriptions (G8553) [facility]; [facility] Work Phone: Start: 11-12-2020 Lipid panel LIPID PANEL (78240) [facility]; [facility] Work Phone: Start: 11-12-2020 Urnls dip stick/tablet reagent auto microscopy URINALYSIS, W/ MICRO (64864) [facility]; [facility] Work Phone: Start: 11-12-2020 25 hydroxy includes fractions if performed Vitamin D Hydroxy (97173) [facility]; [facility] Work Phone: Start: 11-12-2020 Alpha-fetoprotein serum VCJNM-[id number]-GSUK M (97005) [facility]; [facility] Work Phone: Start: 11-12-2020 Cyanocobalamin vitamin b-12 VITAMIN B-12 (CYANOCOBALAMIN) (39416) [facility]; [facility] Work Phone: Start: 11-12-2020 Iron binding capacity IRON BINDING CAPACITY (TIBC) (35012) [facility]; [facility] Work Phone: Start: 11-12-2020 Assay of ferritin FERRITIN (37354) [facility]; [facility] Work Phone: Start: 11-12-2020 Assay of iron IRON (93117) [facility]; [facility] Work Phone: Start: 11-12-2020 Assay of thyroid stimulating hormone tsh TSH (17318) [facility]; [facility] Work Phone: Start: 11-12-2020 Blood count complete auto&auto difrntl wbc CBC W/AUTO DIFF WBC (83940) [facility]; [facility] Work Phone: Start: 11-12-2020 Urine albumin quantitative MICROALBUMIN: CREATININE RATIO (80320) AND (79955) [facility]; [facility] Work Phone: Start: 11-12-2020 Comprehensive metabolic panel METABOLIC PANEL, COMPREHENSIVE (59417) [facility]; [facility] Work Phone: Start: 11-12-2020 Hemoglobin glycosylated a1c HGB A1C (49694) [facility]; [facility] Work Phone: Start: 06-02-2020 Procedure Education Eprescribed prescriptions (G8553) [facility]; [facility] Work Phone: Start: 05-26-2020 Procedure Education Eprescribed prescriptions (G8553) [facility]; [facility] Work Phone: Start: 05-26-2020 Blood count complete auto&auto difrntl wbc CBC W/AUTO DIFF WBC (27070) [facility]; [facility] Work Phone: Start: 05-26-2020 Comprehensive metabolic panel METABOLIC PANEL, COMPREHENSIVE (82626) [facility]; [facility] Work Phone: Start: 08-06-2019 Procedure Education Eprescribed prescriptions (G8553) [facility] Work Phone: Start: 04-09-2019 Procedure Education Eprescribed prescriptions (G8553) [facility] Work Phone: Start: 04-09-2019 25 hydroxy includes fractions if performed Vitamin D Hydroxy (70641) [facility] Internal Medicine Work Phone: Start: 04-09-2019 Sedimentation rate rbc non-automated SED RATE ERYTHROCYTE (71706) [facility] Work Phone: Start: 04-09-2019 CRP [Mass/Vol] C-REACTIVE PROTEIN (21628) [facility] Work Phone: Start: 04-09-2019 Ferritin [Mass/Vol] FERRITIN (97467) [facility] Work Phone: Start: 04-09-2019 Iron [Mass/Vol] IRON (31681) [facility] Work Phone: Start: 04-09-2019 C-reactive protein high sensitivity C-REACT PROT HIGH SENS(hsCRP) (58833) [facility] Work Phone: Start: 04-09-2019 Lipid panel LIPID PANEL (31926) [facility] Work Phone: Start: 04-09-2019 Comprehensive metabolic panel METABOLIC PANEL, COMPREHENSIVE (28654) [facility] Work Phone: Start: 04-09-2019 Blood count complete auto&auto difrntl wbc CBC with auto diff (54652) [facility] Work Phone: Start: 04-09-2019 HbA1c (Bld) [Mass fraction] HGB A1C (74670) [facility] Work Phone: Start: 03-02-2019 Procedure Education Eprescribed prescriptions (G8553) [facility] Work Phone: Start: 11-03-2018 Urine albumin quantitative MICROALBUMIN: CREATININE RATIO (42235) AND (97986) [facility] Work Phone: Start: 11-03-2018 Comprehensive metabolic panel METABOLIC PANEL, COMPREHENSIVE (03541) [facility] Work Phone: Start: 11-03-2018 Iron [Mass/Vol] IRON (61721) [facility] Work Phone: Start: 11-03-2018 Ferritin [Mass/Vol] FERRITIN (87020) [facility] Work Phone: Start: 11-03-2018 Blood count complete auto&auto difrntl wbc CBC W/AUTO DIFF WBC (96253) [facility] Work Phone: Start: 11-03-2018 Alpha-fetoprotein serum [id number]-YHCQ M (00164) [facility] Work Phone: Start: 11-03-2018 Procedure Education Eprescribed prescriptions (G8553) [facility] Work Phone: Start: 10-19-2017 Procedure Education Eprescribed prescriptions (G8553) [facility] Work Phone: Start: 10-19-2017 Comprehensive metabolic panel METABOLIC PANEL, COMPREHENSIVE (41649) [facility] Work Phone: Start: 10-19-2017 Assay of iron IRON (26832) [facility]; [facility] Work Phone: Start: 10-19-2017 Iron mass conc IRON (60634) [facility] Work Phone: Start: 06-17-2017 Throat culture THROAT CULTURE (86089) [facility] Work Phone: Comment on above: recheck after finishing antibiotic Start: 06-09-2017 Procedure Education Eprescribed prescriptions (G8553) [facility] Work Phone: Start: 06-09-2017 Provider Instructions for Treatment Follow up if no improvement or if symptoms worsen [facility] Work Phone: Start: 06-09-2017 Iaadiadoo streptococcus group a Rapid Strep Test, Office (65934) [facility]; [facility] Work Phone: Start: 06-09-2017 S. pyogenes Ag IA Ql (Unsp spec) Rapid Strep Test, Office (01417) [facility] Work Phone: Start: 05-23-2017 Procedure Education Eprescribed prescriptions (G8553) [facility] Work Phone: Start: 05-23-2017 Blood count complete auto&auto difrntl wbc CBC, PLATELETS & AUT DIFF (95211) [facility] Work Phone: Start: 05-23-2017 Assay of ferritin FERRITIN (79557) [facility] Work Phone: Start: 05-23-2017 Ferritin mass conc FERRITIN (97954) [facility] Work Phone: Start: 05-23-2017 Assay of iron IRON (50683) [facility]; [facility] Work Phone: Start: 05-23-2017 Cobalamin (Vitamin B12) mass conc VITAMIN B-12 (CYANOCOBALAMIN) (21419) [facility] Work Phone: Start: 05-23-2017 Cyanocobalamin vitamin b-12 VITAMIN B-12 (CYANOCOBALAMIN) (00541) [facility]; [facility] Work Phone: Start: 05-23-2017 Iron mass conc IRON (91211) [facility] Work Phone: Start: 05-23-2017 Assay of thyroid stimulating hormone tsh TSH (47603) [facility]; [facility] Work Phone: Start: 05-23-2017 Thyrotropin Qn TSH (16098) [facility] Work Phone: Start: 05-23-2017 25 hydroxy includes fractions if performed Vitamin D Hydroxy (04797) [facility] Work Phone: Start: 05-23-2017 Urine albumin quantitative MICROALBUMIN: CREATININE RATIO (70499) AND (99905) [facility] Work Phone: Start: 05-23-2017 Comprehensive metabolic panel METABOLIC PANEL, COMPREHENSIVE (70661) [facility] Work Phone: Start: 05-23-2017 Hemoglobin A1c/Hemoglobin.total mass fraction (Bld) HGB A1C (95069) [facility] Work Phone: Start: 05-23-2017 Hemoglobin glycosylated a1c HGB A1C (60872) [facility]; [facility] Work Phone: Start: 11-09-2016 Procedure Education Eprescribed prescriptions (G8553) [facility] Work Phone: Start: 11-09-2016 Urine albumin quantitative MICROALBUMIN: CREATININE RATIO (16823) AND (04381) [facility] Work Phone: Start: 11-09-2016 Hemoglobin A1c/Hemoglobin.total mass fraction (Bld) HGB A1C (45958) [facility] Work Phone: Start: 11-09-2016 Hemoglobin glycosylated a1c HGB A1C (76510) [facility]; [facility] Work Phone: Start: 11-09-2016 Lipid panel LIPID PANEL (19574) [facility] Work Phone: Start: 11-09-2016 Cobalamin (Vitamin B12) mass conc VITAMIN B-12 (CYANOCOBALAMIN) (06416) [facility] Work Phone: Start: 11-09-2016 Cyanocobalamin vitamin b-12 VITAMIN B-12 (CYANOCOBALAMIN) (64659) [facility]; [facility] Work Phone: Start: 11-09-2016 25 hydroxy includes fractions if performed Vitamin D Hydroxy (53679) [facility] Work Phone: Start: 11-09-2016 Cytp cerv/vag auto thin layer prep mnl screen Thin prep Pap (49207) (no STD testing) [facility] Work Phone: Start: 11-09-2016 Assay of iron IRON (82032) [facility]; [facility] Work Phone: Start: 11-09-2016 Iron mass conc IRON (67846) [facility] Work Phone: Start: 11-09-2016 Assay of ferritin FERRITIN (68287) [facility] Work Phone: Start: 11-09-2016 Ferritin mass conc FERRITIN (18059) [facility] Work Phone: Start: 11-09-2016 Blood count complete auto&auto difrntl wbc CBC W/AUTO DIFF WBC (37035) [facility] Work Phone: Start: 09-06-2016 Assay of iron Iron (74177) [facility]; [facility] Work Phone: Start: 09-06-2016 Iron mass conc Iron (51254) [facility] Work Phone: Start: 09-06-2016 Procedure Education Eprescribed prescriptions (G8553) [facility] Work Phone: Start: 12-08-2015 Procedure Education Eprescribed prescriptions (G8553) [facility] Work Phone: Start: 12-08-2015 Provider Instructions for Treatment Follow up in 3 months [facility] Work Phone: Start: 11-06-2014 Patient Education Anxiety: anxiety [facility] Work Phone: Start: 11-06-2014 Procedure Education Eprescribed prescriptions (G8553) [facility] Work Phone: Start: 11-06-2014 Alpha-fetoprotein serum [id number]-TYOT M (94594) [facility] Work Phone: Start: 11-06-2014 Microsomal antibodies each Anti-TPO Antibody (23934) [facility] Work Phone: Start: 11-06-2014 Assay of thyroid stimulating hormone tsh TSH (15516) [facility]; [facility] Work Phone: Start: 11-06-2014 Thyrotropin Qn TSH (68678) [facility] Work Phone: Start: 11-06-2014 Assay of free thyroxine T4, FREE (THYROXINE) (43328) [facility]; [facility] Work Phone: Start: 11-06-2014 T4 free mass conc T4, FREE (THYROXINE) (67267) [facility] Work Phone: Start: 11-06-2014 Assay of triiodothyronine t3 free T3, FREE (TRIDOTHYRONINE) (58246) [facility]; [facility] Work Phone: Start: 11-06-2014 T3 free mass conc T3, FREE (TRIDOTHYRONINE) (49377) [facility] Work Phone: Start: 08-28-2014 Procedure Education Eprescribed prescriptions (G8553) [facility] Work Phone: Start: 07-26-2014 Patient Education Flu (Influenza) *: flu [facility] Work Phone: Start: 07-26-2014 Procedure Education Eprescribed prescriptions (G8553) [facility] Work Phone: Start: 2011 Screening for malignant neoplasm of breast Mammogram [facility] Start: 1993 DTaP/Tdap/Td Vaccines (1 - Tdap) DTaP/Tdap/Td Vaccines (1 - Tdap) [facility] Start: 1992 Screening for malignant neoplasm of cervix [facility] Start: 1990 Hepatitis A Vaccines (1 of 2 - Risk 2-dose series) Hepatitis A Vaccines (1 of 2 - Risk 2-dose series) [facility] Start: 1989 Hepatitis C screening Hepatitis C Screening [facility] Start: 1972 MMR Vaccines (1 of 1 - Standard series) MMR Vaccines (1 of 1 - Standard series) [facility] Start: 1971 COVID-19 Vaccine (#1) COVID-19 Vaccine (#1) [facility] Start: 1971 Hepatitis B Vaccines (1 of 3 - 3-dose series) Hepatitis B Vaccines (1 of 3 - 3-dose series) [facility] Start: 1971 HIV screening HIV Screening [facility] Start: 1971 Lipid panel Lipid Panel [facility] Start: 1971 Screening for malignant neoplasm of colon [facility] Start: 1971 Yearly Adult Physical Yearly Adult Physical [facility] Calculus analysis [facility] Work Phone: Measurement of weigh t of calculus [facility] Work Phone: Origin of Stone [facility] Work Phone: Patient referral [facility] Work Phone: Specimen color determination [facility] Work Phone: [facility] Work Phone: [facility] Work Phone[facility] Work Phone[facility] Work Phone: [facility] Work Phone: [facility] Work Phone: [facility] Work Phone: [facility] Work Phone: [facility] Work Phone: [facility] Work Phone: [facility] Work Phone[facility] Work Phone: [facility] Work Phone[facility] Work Phone: [facility]; [facility] Work Phone: [facility]; [facility] Work Phone: [facility]; [facility] Work Phone: [facility]; [facility] Work Phone: [facility]; [facility] Work Phone: [facility]; [facility] Work Phone: [facility]; [facility] Work Phone: [facility]; [facility] Work Phone: [facility]; [facility] Work Phone: Immunizations Immunization Date Immunization Notes Care Provider Fa cili 10-02-2020 COVID-19 (Moderna) Sandeep Fas t DO Work Phone: [facility]; [facility] Work Phone: 09-04-2020 COVID-19 (Moderna) Sandeep Fas t DO Work Phone: [facility]; [facility] Work Phone: Payers Date Payer Category Payer Self-pay [id number] 2021 Private Health Insurance [id number] 2021 Private Health Insurance [facility] [place] [id number] 2021-Present [address] [place] [address] [id number] 2014 Private Health Insurance [id number] 2012 Private Health Insurance [id number] 1971 Unknown [id number] 1971 Unknown [id number] Private Health Insurance [id number] Unknown Unknown [id number] Unknown [id number] Unknown [id number] Unknown [id number] Unknown [id number] Unknown [id number] Unknown 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 [facility] Work Phone: Tobacco use: Never smoker. [facility] Work Phone: Alcohol Use: Alcohol Use: [facility]; [facility] Work Phone: Exercise History: Exercise History: [facility]; [facility] Work Phone: Tobacco use: Tobacco use: [facility]; [facility] Work Phone: Start: 02-03-2022 End: 01-24-2023 Tobacco smoking status NHIS Unknown if ever smoked [facility] Start: 11-12-2020 Rare [facility] Start: 11-12-2020 None [facility] Start: 11-12-2020 Homeless [facility] Start: 08-22-2019 Non-smoker [facility] Start: 1970 Sex Assigned At Female [facility] Start: 1970 Sex Assigned At Not on file [facility] Work Phone: Gender identity Not [facility] Start: 07-24-2023 End: 08-03-2023 Exposure to SARS-CoV-2 (event) Not sure [facility] Start: 12-04-2024 Tobacco smoking stat [facility] Never smoked tobacco (finding) [facility] Medical Equipment Procedure Code Equipment Code Equipment Origin al Text Equipment Identifier Dates Cystoscopy, with retrograde pyelogram, ureteroscopy, laser procedure, and stent inser STENT,URETERAL PIGTAIL [id number] FDA Start: 02-04-2022 Cystoscopy, with retrograde pyelogram, ureteroscopy, laser procedure, and stent inser STENT,URETERAL PIGTAIL [id number] FDA Start: 02-04-2022 Cystoscopy, with retrograde pyelogram, ureteroscopy, laser procedure, and stent inser STENT,URETERAL PIGTAIL [id number] FDA Start: 02-04-2022 Cystoscopy, with retrograde pyelogram, ureteroscopy, laser procedure, and stent inser STENT,URETERAL PIGTAIL [id number] FDA Start: 02-18-2022 Cystoscopy, with retrograde pyelogram, ureteroscopy, laser procedure, and stent inser STENT,URETERAL PIGTAIL [id number] FDA Start: 02-04-2022 Cystoscopy, with retrograde pyelogram, ureteroscopy, laser procedure, and stent inser STENT,URETERAL PIGTAIL [id number] FDA Start: 02-18-2022 Cystoscopy, with retrograde pyelogram, ureteroscopy, laser procedure, and stent inser STENT,URETERAL PIGTAIL [id number] FDA Start: 02-04-2022 Cystoscopy, with retrograde pyelogram, ureteroscopy, laser procedure, and stent inser STENT,URETERAL PIGTAIL [id number] FDA Start: 02-18-2022 Cystoscopy, with retrograde pyelogram, ureteroscopy, laser procedure, and stent inser STENT,URETERAL PIGTAIL [id number] FDA Start: 02-04-2022 Cystoscopy, with retrograde pyelogram, ureteroscopy, laser procedure, and stent inser STENT,URETERAL PIGTAIL [id number] FDA Start: 02-18-2022 Cystoscopy, with retrograde pyelogram, ureteroscopy, laser procedure, and stent inser STENT,URETERAL PIGTAIL [id number] FDA Start: 02-04-2022 Cystoscopy, with retrograde pyelogram, ureteroscopy, laser procedure, and stent inser STENT,URETERAL PIGTAIL [id number] FDA Start: 02-18-2022 Cystoscopy, with retrograde pyelogram, ureteroscopy, laser procedure, and stent inser STENT,URETERAL PIGTAIL [id number] FDA Start: 02-04-2022 Cystoscopy, with retrograde pyelogram, ureteroscopy, laser procedure, and stent inser STENT,URETERAL PIGTAIL [id number] FDA Start: 02-18-2022 Cystoscopy, with retrograde pyelogram, ureteroscopy, laser procedure, and stent inser STENT,URETERAL PIGTAIL [id number] FDA Start: 02-04-2022 Cystoscopy, with retrograde pyelogram, ureteroscopy, laser procedure, and stent inser STENT,URETERAL PIGTAIL [id number] FDA Start: 02-18-2022 Cystoscopy, with retrograde pyelogram, ureteroscopy, laser procedure, and stent inser STENT,URETERAL PIGTAIL [id number] FDA Start: 02-04-2022 Cystoscopy, with retrograde pyelogram, ureteroscopy, laser procedure, and stent inser STENT,URETERAL PIGTAIL [id number] FDA Start: 02-18-2022 Goals Date Patient Goal Desired Activity /State Mental Status Date Assessment Result Facility 10-12-2022 Cognitive function Awake;Alert;A ppropriate;Fol lows Commands [facility] Work Phone: 02-18-2022 Cognitive function Voice/Name [facility] Work Phone: 02-04-2022 Cognitive function Voice/Name [facility] Work Phone: Clinical Notes 12-01-2021 to 10-12-2022 Note Date & Type Note Facility 10-12-2022 Discharge summary Note Date/Time October 12, 2022 6:53pm [facility] Medical Records Department [address] [place] [address] Emergency Department Summary 10/12/22 MR#: [id number] Acct: [id number] Name: KERWIN STARKS Rep #:[id number] 15 : 1970 52 From: Nghia Tran MD PCP: Dr. Sandeep Guerrero, DO Status:REG ER Location: ED HPI History of Present Illness Chief Complaint: Chest Pain Narrative Narrative: 52-year-old female who denies significant past medical history presents with right-sided neck pain radiating down into her right chest and sometimes down herright arm. She states this has been ongoing for the last few weeks, but more intermittently. Yesterday, she began having the pain radiating from her neck and trapezial area down into her chest. She denies any nausea or vomiting, no shortness of breath or diaphoresis. She was at work today, midmorning, greater than 6 hours ago when she started having more consistent pain. In the past it could last around 10 minutes. She called her who is out of town to ask if she should apply heat or ice, as she felt it was more muscular. She ended upcalling her daughter who is a cardiac care nurse who "freaked out" and had her come to the emergency department for evaluation for cardiac chest pain. [facility] Medical History Alcohol use Anxiety Back pain Fatty liver GERD (gastroesophageal reflux disease) Hypothyroid Low iron Non-smoker Renal calculus, right Home Medications duloxetine 60 mg capsule,delayed release 60 mg PO DAILY anxiety 08/22/19 [History Last Taken 02/04/22] levothyroxine 50 mcg tablet 50 mcg PO DAILY thyroid 08/22/19 [History Last Taken 02/04/22] trazodone 50 mg tablet 50 mg PO QHS sleep 08/22/19 [History Last Taken Unknown] ibuprofen 600 mg tablet 600 mg PO Q8H PRN PRN pain #20 tabs 01/25/22 [Rx Last Taken Unknown] ondansetron 4 mg disintegrating tablet 4 mg PO Q8H PRN nausea and vomiting #10 tabs 01/25/22 [Rx Last Taken Unknown] oxybutynin chloride 10 mg tablet,extended release 24 hr 10 mg PO DAILY 30 days #30 tabs 02/04/22 [Rx Last Taken Unknown] oxycodone-acetaminophen 5 mg-325 mg tablet 2 tab PO Q8H PRN PRN Pain 7 days #20 tabs 02/04/22 [Rx Last Taken Unknown] cephalexin 500 mg capsule 500 mg PO Q12 post-operative 3 days #6 CAPSULES 02/18/22 [Rx Last Taken Unknown] oxycodone-acetaminophen 5 mg-325 mg tablet 2 tab PO Q8H PRN PRN Pain 3 days #10 tabs 02/18/22 [Rx Last Taken Unknown] Allergy/AdvReac Type Severity Reaction Status Date / Time No Known Allergies Allergy Verified 10/12/22 18:30 Family History Mother Heart disease Thyroid disorder Breast cancer Aunt Breast cancer Surgical History History of lithotripsy History of removal of cyst Social History Smoking Status: Never smoker ROS ROS ED ROS Narrative Constitutional: No fever, no chills. HEENT: No sore throat. Positive neck pain with radiation to right arm, and towards right chest. No loss of vision. No rhinorrhea. Cardiovascular: Right-sided chest pain. No palpitations. No pedal edema. Respiratory: No cough, no shortness of breath. Abdominal: No abdominal pain. No nausea. No vomiting. Genitourinary: No dysuria. No hematuria. Musculoskeletal: No myalgias. No arthralgias. Neurologic: No headaches. No dizziness. No lightheadedness. Skin: No rash. No change in color. Psychiatric: No depression. No anxiety. EXAM Physical Exam Narrative Exam Narrative: Afebrile. Vital signs noted. HEENT: Normocephalic. Atraumatic. PERRL, EOMI. Neck soft and supple. No pointtenderness or step off. Cardiovascular: Regular rate and rhythm. No murmurs, rubs, or gallops appreciated. Respiratory: No tachypnea. Lungs clear to auscultation bilaterally. Gastrointestinal: Abdomen soft, nontender, with normoactive bowel sounds. No rebound or guarding. Neurological: Awake. Alert. Nonfocal, nonlateralizing. Skin: No rash. Normal color. No pallor. Musculoskeletal: No pedal edema. Full range of motion extremities. Const Vital Signs: 10/12/22 18:28 10/12/22 18:35 10/12/22 18:42 Temperature 98 F Temperature Source Temporal Pulse Rate 73 Respiratory Rate 18 Respiratory Effort Normal Non-Labored Blood Pressure 166/74 H Blood Pressure Mean 104 Pulse Ox 100 Oxygen Delivery Method Room Air Room Air Heart Score History: Slightly/Non-Suspicious ECG: Normal Age: >45 - <65 years Risk Factors: No Risk Factors Score: 1 MDM MDM MDM Narrative Medical decision making narrative: In the differential diagnosis is acute coronary syndrome/cardiac chest pain versus cervical radiculopathy. I have low suspicion for pulmonary embolism as she is not tachycardic and her pulse ox is 100% on room air. She denies any DVTor PE risk factors. Additionally, I have lower suspicion for acute coronary syndrome as she has not necessarily having chest pain radiating to her neck, butthe opposite. EKG was obtained and interpreted by myself which demonstrates sinus rhythm at 77 bpm with PACs, but no acute ST changes. No STEMI. This helps rule out an acute STEMI or cardiac pain. Chest pain protocol orders were entered. I do not feel that she needs serial troponins as her chest pain has been ongoing for greater than 6 hours. I did add a CT of the cervical spine to look for spinal stenosis as an explanation for her cervical radiculopathy symptoms. I reviewed her laboratory work, she has slightly elevated leukocytosis of 12.6, hemoglobin 11.2 with slight anemia, hematocrit 37.1, normal platelet count of 338. Electrolyte panel is grossly unremarkable with normal sodium of 137, normal potassium of 3.6, BUN normal at 10 and creatinine normal at 0.78. High-sensitivity troponin is 5. This is greater than a 6-hour troponin. I do not feel that she requires serial troponin. Chest x-ray reviewed by myself and interpreted shows no acute process. I reviewed the radiology report which confirms this. CT of the C-spine shows no critical lesions or stenosis, no fracture on review of the radiology report. At this point in time, I feel she can be discharged safely home with follow-up. Repeat examination at approximately 2009 shows her resting comfortably using her cellular telephone. She is feeling improved. She will follow-up with her primary care physician. Return instructions to the emergency department were reviewed. Disposition is discharged home in stable condition. History & Record Review Discussion w/independent historian: Patient Additional record(s) reviewed:: Prior ED visit Lab Data Attestation: I reviewed the patient's lab results. Labs: Laboratory Results - last 24 hr 10/12/22 10/12/22 18:43 18:43 WBC 12.6 H RBC 4.82 Hgb 11.2 L Hct 37.1 MCV 77.0 L MCH 23.2 L MCHC 30.2 L RDW Std Deviation 50.3 H RDW Coeff of Armando 18.2 H Plt Count 338 MPV 10.6 Immature Gran % (Auto) 0.400 Neut % (Auto) 62.2 Lymph % (Auto) 27.4 Real % (Auto) 8.0 Eos % (Auto) 1.4 Baso % (Auto) 0.6 Absolute Neuts (auto) 7.8 H Absolute Lymphs (auto) 3.45 Nucleated RBC % 0 Sodium 137 Potassium 3.6 Chloride 104 Carbon Dioxide 26.0 Anion Gap 7 BUN 10 Creatinine 0.78 Estim Creat Clear Calc 92.27 Est GFR (MDRD) Af Amer 100 Est GFR (MDRD) Non-Af 82 BUN/Creatinine Ratio 12.8 Glucose 82 Calcium 9.3 Troponin I High Sens 5 Radiography Diagnostic Testing: Clinical Impression(s) from Imaging Studies Cervical Spine CT 10/12/22 18:48 IMPRESSION: Thyroid goiter. No evidence of acute cervical spinal fracture or spondylolisthesis. Electronically Signed: Edwin Thakkar MD at 19:18 EDT Reading Location ID and State: [facility] / [place] Tel , Service support , Chest X-Ray 10/12/22 18:50 IMPRESSION: No radiographic evidence of acute cardiopulmonary disease. Electronically Signed: Edwin Thakkar MD at 19:00 EDT , Discharge Plan Triage Chief Complaint: Chest Pain ED Provider: Nghia Tran Dx/Rx/DC Orders Clinical Impression: Neck pain, Chest pain Instructions: ED Chest Pain, Uncertain Cause, ED Neck Pain Prescriptions: No Action trazodone 50 mg tablet 50 mg PO QHS levothyroxine 50 mcg tablet 50 mcg PO DAILY duloxetine 60 mg capsule,delayed release(DR/EC) 60 mg PO DAILY Label Comments: TAKE ONE CAPSULE BY MOUTH EVERY MORNING WITH FOOD ibuprofen 600 mg tablet 600 mg PO Q8H PRN PRN (Reason: pain) Qty: 20 0RF ondansetron 4 mg tablet,disintegrating 4 mg PO Q8H PRN (Reason: nausea and vomiting) Qty: 10 0RF oxycodone-acetaminophen 5-325 mg tablet 2 tab PO Q8H PRN PRN (Reason: Pain) 7 Days Qty: 20 0RF oxybutynin chloride 10 mg tablet extended release 24hr 10 mg PO DAILY 30 Days Qty: 30 0RF oxycodone-acetaminophen [oxycodone-acetaminophen] 5-325 mg tablet 2 tab PO Q8H PRN PRN (Reason: Pain) 3 Days Qty: 10 0RF cephalexin [cephalexin] 500 mg capsule 500 mg PO Q12 3 Days Qty: 6 0RF Primary Care Provider: Sandeep Guerrero Referrals: Sandeep uGerrero DO [Primary Care Provider] - 3-5 Days if not improving Disposition Disposition: Home, Self Care What to do if you have Problems For any increased pain, shortness of breath, bleeding, nausea or vomiting, chestpain, or any unexpected problems, contact your Primary Care Provider. Call [facility] ([phone]) or report to the closest Emergency Room. Call 911 if necessary. 10/12/222012 <Electronically signed by Nghia Tran MD> Cosigner Signature (if applicable): CC: Dr. Sandeep Guerrero DO ~ Signed [facility] Work Phone: [phone] Procedure [facility] 12-01-2021 NoteHNO ID: [id number] Author: Henry Funez MD Service: ? Author Type: Physician Type: Progress Notes Filed: 12/01/2021 1:33 PM Note Text: HISTORY AND PHYSICAL Kerwin Starks 1970 REFERRING PHYSICIAN: Sandeep Guerrero DO CHIEF COMPLAINT: Consult (thyroid nodule) HPI: The patient is a 51 year old female with a complaint of multinodular goiter. Patient had a thyroid ultrasound completed at [facility] on 11/26/2021. In the right lobe there was a 7 mm nodule in the left lobe there was a 1.1 cm nodule. They described it as a solid and cystic nodule. There is no recommendations for fine-needle aspirations on either of these. I have seen the patient in the past and performed fine-needle aspirations on both sides in 2017. 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 The patient is being seen by me today at the request of Dr. Sandeep Guerrero, DO for my opinion and advice regarding Multinodular goiter (primary encounter diagnosis). PAST MEDICAL HISTORY Diagnosis Date - Kidney stones PAST SURGICAL HISTORY Procedure Laterality Date - LITHOTRIPSY XTRCORP SHOCK WAVE - PAST SURGICAL HISTORY OF lipoma on back Current Outpatient Medications Medication Sig - gabapentin (NEURONTIN) 300 mg capsule Take 300 mg by mouth twice daily. - levothyroxine (LEVOXYL) 50 mcg tablet Take 1 tablet by mouth daily before breakfast. - DULoxetine 60 mg capsule Take 1 capsule by mouth once daily. - traZODone 50 mg tablet Take 1-2 tablets at bedtime as needed for insomnia - predniSONE 20 mg tablet Prednisone 20 mg- Day 1-2 take 3 tablets in am, day 3-4 take 2 tablets in am, day 5-6 take 1 tablet in am (Patient not taking: Reported on 12/01/2021 ) - SUMAtriptan 100 mg tablet Take at onset of headache, not to exceed 2 days per week (Patient not taking: Reported on 12/01/2021 ) - DULoxetine 30 mg capsule Take one tablet every morning for 2 weeks, and then increase to 60 mg in the morning (Patient not taking: Reported on 12/01/2021 ) No current facility-administered medications for this visit. ALLERGIES: Patient has no known allergies. PERSONAL HISTORY: Social History Tobacco Use - Smoking status: Never Smoker - Smokeless tobacco: Never Used Vaping Use - Vaping Use: Never used Substance Use Topics - Alcohol use: Yes Comment: social - Drug use: No FAMILY HISTORY: FAMILY HISTORY Problem Relation Age of Onset - Headache Daughter migraine - Cancer Father brain adenocarcinoma- at 49 - Alcohol/Drug Father - Heart Mother - Ischemic Heart Disease Mother - Cancer Mother pharyngeal, lung - Breast Cancer Mother - Stroke Mother - Cancer Paternal Aunt brain cancer - Alcohol/Drug Brother REVIEW OF SYMPTOMS: The review of systems data was entered by the nurse and reviewed by ak Nursing Notes: Gabby SethALIX 12/01/2021 9:17 AM Signed REVIEW OF SYSTEMS: General: The patient notes fatigue, denies weight loss, denies weight gain, denies feeling hot, and notes feelings of cold. Eyes: The patient denies glaucoma, denies eye injury/surgery, does not wear glasses or contacts. Ear/Nose/Throat: The patient denies allergies, denies hayfever, denies ear infections, and denies bloody noses. Cardiovascular: The patient denies chest pain, denies heart disease, denies high blood pressure,denies cardiac stent, denies prior heart attack, denies irregular heart beat, denies high cholesterol, denies poor circulation, denies heart failure, other cardiac issues, denies claudication, denies cold feet, denies peripheral arterial stent. Respiratory: The patient denies tuberculosis, denies pneumonia, denies frequent cough, denies pulmonary embolism, denies shortness of breath, and denies coughing up blood. Gastrointestinal: The patient notes difficulty swallowing, denies acid reflux, denies ulcers, denies vomiting, denies jaundice/hepatitis, denies gallbladder problems, denies black or tarry stools, denies hemorrhoids, denies bleeding from rectum, denies diverticulitis, denies constipation, denies diarrhea, denies loss of stool control, and denies hernias. Kidney/Bladder: The patient notes kidney stones, denies urine infections, and denies bloody urine. Skin: The patient denies a history of skin cancer, denies bleeding/changing moles, and denies a history of skin rash. Neurologic: The patient denies a history of epilepsy/convulsions, denies headaches, denies head/spinal injuries, and denies stroke/TIA. Psychiatric: The patient denies psychiatric medications, denies depression, and denies voices, denies substance abuse. Endocrine: The patient denies thyroid disorders, denies diabetes, and denies hormonal problems. Hematologic: The patient denies a history of bruising, denies bleeding, and denies anemia, denies blood clots. Infections: The patient denies a history of measles and mumps, denies r (more content not included)...[facility] availableWT[facility] Work Phone: Evaluation note* Diagnosis Wellness examination documented in this encounter [facility] Work Phone: Hospital Discharge instructions Additional Instructions Implant Used?: YesWToledo Hospital Work Phone: Hospital Discharge instructions Additional Instructions Please follow-up with urology to discuss need for lithotripsy and/or stent placement for your stone. If you develop a fever over 100.4 or your pain is not controlled with the prescribed medications please return for repeat evaluationWToledo Hospital Work Phone: Instructions* Name Dates Details How to Access Health Informa tion Online using Patient Portal and [employer] Indication:Cough Start:02-Jun-2020 Instruction Type:Patient Education Patient Instructions Indication:Cough Start:02-Jun-2020 Instruction Type:Provider Instructions for Treatment Patient Instructions Indication:Cough Start:26-May-2020 Instruction Type:Provider Instructions for Treatment How to Access Health Informa tion Online using Patient Portal and [employer] Apps Indication:Cough Start:26-May-2020 Instruction Type:Patient Education How to access health informa tion online Indication:Fatigue Start:06-Aug-2019 Instruction Type:Patient Education How to access health informa tion online - Detail Indication:Fatigue Start:06-Aug-2019 Instruction Type:Patient Education Patient Instructions Indication:Fatigue Start:06-Aug-2019 Instruction Type:Provider Instructions for Treatment Patient Instructions Indication:[facility] WELLNESS EXAM Start:09-Apr-2019 Instruction Type:Provider Instructions for Treatment How to access health informa tion online Indication:Itching Start:02-Mar-2019 Instruction Type:Patient Education How to access health informa tion online - Detail Indication:Itching Start:02-Mar-2019 Instruction Type:Patient Education Patient Instructions Indication:Itching Start:02-Mar-2019 Instruction Type:Provider Instructions for Treatment How to access health informa tion online Indication:Thyroid Nodule Start:03-Nov-2018 Instruction Type:Patient Education How to access health informa tion online - Detail Indication:Thyroid Nodule Start:03-Nov-2018 Instruction Type:Patient Education Patient Instructions Indication:Thyroid Nodule Start:03-Nov-2018 Instruction Type:Provider Instructions for Treatment How to access health informa tion online Indication:Elevated hemoglobin A1c Start:19-Oct-2017 Instruction Type:Patient Education How to access health informa tion online - Detail Indication:Elevated hemoglobin A1c Start:19-Oct-2017 Instruction Type:Patient Education Patient Instructions Indication:Elevated hemoglobin A1c Start:19-Oct-2017 Instruction Type:Provider Instructions for Treatment How to access health informa tion online Indication:Non-smoker Start:09-Jun-2017 Instruction Type:Patient Education How to access health informa tion online - Detail Indication:Non-smoker Start:09-Jun-2017 Instruction Type:Patient Education Patient Instructions Indication:Sore throat Start:09-Jun-2017 Instruction Type:Provider Instructions for Treatment How to access health informa tion online Indication:BMI 28.0-28.9,adult Start:23-May-2017 Instruction Type:Patient Education How to access health informa tion online - Detail Indication:BMI 28.0-28.9,adult Start:23-May-2017 Instruction Type:Patient Education Patient Instructions Indication:BMI 28.0-28.9,adult Start:23-May-2017 Instruction Type:Provider Instructions for Treatment How to access health informa tion online Indication:[facility] Physical Start:09-Nov-2016 Instruction Type:Patient Education How to access health informa tion online - Detail Indication:[facility] Physical Start:09-Nov-2016 Instruction Type:Patient Education Patient Instructions Indication:[facility] Physical Start:09-Nov-2016 Instruction Type:Provider Instructions for Treatment How to access health informa tion online Indication:Oropharyngeal dysphagia Start:06-Sep-2016 Instruction Type:Patient Education How to access health informa tion online - Detail Indication:Oropharyngeal dysphagia Start:06-Sep-2016 Instruction Type:Patient Education Patient Instructions Indication:Oropharyngeal dysphagia Start:06-Sep-2016 Instruction Type:Provider Instructions for Treatment How to access health informa tion online Indication:Anxiety Start:08-Dec-2015 Instruction Type:Patient Education How to access health informa tion online - Detail Indication:Anxiety Start:08-Dec-2015 Instruction Type:Patient Education Patient Instructions Indication:Anxiety Start:08-Dec-2015 Instruction Type:Provider Instructions for Treatment Patient Instructions Indication:Anxiety Start:06-Nov-2014 Instruction Type:Provider Instructions for Treatment Patient Instructions Indication:Fatigue Start:28-Aug-2014 Instruction Type:Provider Instructions for Treatment How to access health informa tion online Indication:Fatigue Start:26-Jul-2014 Instruction Type:Patient Education How to access health informa tion online - Detail Indication:Fatigue Start:26-Jul-2014 Instruction Type:Patient Education Patient Instructions Indication:Fatigue Start:26-Jul-2014 Instruction Type:Provider Instructions for Treatment [facility]; [facility] Work Phone: Instructions* Name Dates Details Patient Instructions Indication:Non-smoker Start:12-Nov-2020 Instruction Type:Provider Instructions for Treatment How to Access Health Informa tion Online using Patient Portal and [employer]rd [employer] Apps Indication:Non-smoker Start:12-Nov-2020 Instruction Type:Patient Education How to Access Health Informa tion Online using Patient Portal and [employer] Apps Indication:Cough Start:02-Jun-2020 Instruction Type:Patient Education Patient Instructions Indication:Cough Start:02-Jun-2020 Instruction Type:Provider Instructions for Treatment Patient Instructions Indication:Cough Start:26-May-2020 Instruction Type:Provider Instructions for Treatment How to Access Health Informa tion Online using Patient Portal and [employer] Apps Indication:Cough Start:26-May-2020 Instruction Type:Patient Education How to access health informa tion online Indication:Fatigue Start:06-Aug-2019 Instruction Type:Patient Education How to access health informa tion online - Detail Indication:Fatigue Start:06-Aug-2019 Instruction Type:Patient Education Patient Instructions Indication:Fatigue Start:06-Aug-2019 Instruction Type:Provider Instructions for Treatment Patient Instructions Indication:[facility] WELLNESS EXAM Start:09-Apr-2019 Instruction Type:Provider Instructions for Treatment How to access health informa tion online Indication:Itching Start:02-Mar-2019 Instruction Type:Patient Education How to access health informa tion online - Detail Indication:Itching Start:02-Mar-2019 Instruction Type:Patient Education Patient Instructions Indication:Itching Start:02-Mar-2019 Instruction Type:Provider Instructions for Treatment How to access health informa tion online Indication:Thyroid Nodule Start:03-Nov-2018 Instruction Type:Patient Education How to access health informa tion online - Detail Indication:Thyroid Nodule Start:03-Nov-2018 Instruction Type:Patient Education Patient Instructions Indication:Thyroid Nodule Start:03-Nov-2018 Instruction Type:Provider Instructions for Treatment How to access health informa tion online Indication:Elevated hemoglobin A1c Start:19-Oct-2017 Instruction Type:Patient Education How to access health informa tion online - Detail Indication:Elevated hemoglobin A1c Start:19-Oct-2017 Instruction Type:Patient Education Patient Instructions Indication:Elevated hemoglobin A1c Start:19-Oct-2017 Instruction Type:Provider Instructions for Treatment How to access health informa tion online Indication:Non-smoker Start:09-Jun-2017 Instruction Type:Patient Education How to access health informa tion online - Detail Indication:Non-smoker Start:09-Jun-2017 Instruction Type:Patient Education Patient Instructions Indication:Sore throat Start:09-Jun-2017 Instruction Type:Provider Instructions for Treatment How to access health informa tion online Indication:BMI 28.0-28.9,adult Start:23-May-2017 Instruction Type:Patient Education How to access health informa tion online - Detail Indication:BMI 28.0-28.9,adult Start:23-May-2017 Instruction Type:Patient Education Patient Instructions Indication:BMI 28.0-28.9,adult Start:23-May-2017 Instruction Type:Provider Instructions for Treatment How to access health informa tion online Indication:[facility] Physical Start:09-Nov-2016 Instruction Type:Patient Education How to access health informa tion online - Detail Indication:[facility] Physical Start:09-Nov-2016 Instruction Type:Patient Education Patient Instructions Indication:[facility] Physical Start:09-Nov-2016 Instruction Type:Provider Instructions for Treatment How to access health informa tion online Indication:Oropharyngeal dysphagia Start:06-Sep-2016 Instruction Type:Patient Education How to access health informa tion online - Detail Indication:Oropharyngeal dysphagia Start:06-Sep-2016 Instruction Type:Patient Education Patient Instructions Indication:Oropharyngeal dysphagia Start:06-Sep-2016 Instruction Type:Provider Instructions for Treatment How to access health informa tion online Indication:Anxiety Start:08-Dec-2015 Instruction Type:Patient Education How to access health informa tion online - Detail Indication:Anxiety Start:08-Dec-2015 Instruction Type:Patient Education Patient Instructions Indication:Anxiety Start:08-Dec-2015 Instruction Type:Provider Instructions for Treatment Patient Instructions Indication:Anxiety Start:06-Nov-2014 Instruction Type:Provider Instructions for Treatment Patient Instructions Indication:Fatigue Start:28-Aug-2014 Instruction Type:Provider Instructions for Treatment How to access health informa tion online Indication:Fatigue Start:26-Jul-2014 Instruction Type:Patient Education How to access health informa tion online - Detail Indication:Fatigue Start:26-Jul-2014 Instruction Type:Patient Education Patient Instructions Indication:Fatigue Start:26-Jul-2014 Instruction Type:Provider Instructions for Treatment [facility]; [facility] Work Phone: Instructions* Name Dates Details Patient Instructions Indication:Non-smoker Start:12-Nov-2020 Instruction Type:Provider Instructions for Treatment How to Access Health Informa tion Online using Patient Portal and [employer] Apps Indication:Non-smoker Start:12-Nov-2020 Instruction Type:Patient Education How to Access Health Informa tion Online using Patient Portal and [employer] Apps Indication:Cough Start:02-Jun-2020 Instruction Type:Patient Education Patient Instructions Indication:Cough Start:02-Jun-2020 Instruction Type:Provider Instructions for Treatment Patient Instructions Indication:Cough Start:26-May-2020 Instruction Type:Provider Instructions for Treatment How to Access Health Informa tion Online using Patient Portal and [employer] Apps Indication:Cough Start:26-May-2020 Instruction Type:Patient Education How to access health informa tion online Indication:Fatigue Start:06-Aug-2019 Instruction Type:Patient Education How to access health informa tion online - Detail Indication:Fatigue Start:06-Aug-2019 Instruction Type:Patient Education Patient Instructions Indication:Fatigue Start:06-Aug-2019 Instruction Type:Provider Instructions for Treatment Patient Instructions Indication:[facility]LL[facility] EXAM Start:09-Apr-2019 Instruction Type:Provider Instructions for Treatment How to access health informa tion online Indication:Itching Start:02-Mar-2019 Instruction Type:Patient Education How to access health informa tion online - Detail Indication:Itching Start:02-Mar-2019 Instruction Type:Patient Education Patient Instructions Indication:Itching Start:02-Mar-2019 Instruction Type:Provider Instructions for Treatment How to access health informa tion online Indication:Thyroid Nodule Start:03-Nov-2018 Instruction Type:Patient Education How to access health informa tion online - Detail Indication:Thyroid Nodule Start:03-Nov-2018 Instruction Type:Patient Education Patient Instructions Indication:Thyroid Nodule Start:03-Nov-2018 Instruction Type:Provider Instructions for Treatment How to access health informa tion online Indication:Elevated hemoglobin A1c Start:19-Oct-2017 Instruction Type:Patient Education How to access health informa tion online - Detail Indication:Elevated hemoglobin A1c Start:19-Oct-2017 Instruction Type:Patient Education Patient Instructions Indication:Elevated hemoglobin A1c Start:19-Oct-2017 Instruction Type:Provider Instructions for Treatment How to access health informa tion online Indication:Non-smoker Start:09-Jun-2017 Instruction Type:Patient Education How to access health informa tion online - Detail Indication:Non-smoker Start:09-Jun-2017 Instruction Type:Patient Education Patient Instructions Indication:Sore throat Start:09-Jun-2017 Instruction Type:Provider Instructions for Treatment How to access health informa tion online Indication:BMI 28.0-28.9,adult Start:23-May-2017 Instruction Type:Patient Education How to access health informa tion online - Detail Indication:BMI 28.0-28.9,adult Start:23-May-2017 Instruction Type:Patient Education Patient Instructions Indication:BMI 28.0-28.9,adult Start:23-May-2017 Instruction Type:Provider Instructions for Treatment How to access health informa tion online Indication:[facility] Start:09-Nov-2016 Instruction Type:Patient Education How to access health informa tion online - Detail Indication:[facility] Start:09-Nov-2016 Instruction Type:Patient Education Patient Instructions Indication:[facility] Physical Start:09-Nov-2016 Instruction Type:Provider Instructions for Treatment How to access health informa tion online Indication:Oropharyngeal dysphagia Start:06-Sep-2016 Instruction Type:Patient Education How to access health informa tion online - Detail Indication:Oropharyngeal dysphagia Start:06-Sep-2016 Instruction Type:Patient Education Patient Instructions Indication:Oropharyngeal dysphagia Start:06-Sep-2016 Instruction Type:Provider Instructions for Treatment How to access health informa tion online Indication:Anxiety Start:08-Dec-2015 Instruction Type:Patient Education How to access health informa tion online - Detail Indication:Anxiety Start:08-Dec-2015 Instruction Type:Patient Education Patient Instructions Indication:Anxiety Start:08-Dec-2015 Instruction Type:Provider Instructions for Treatment Patient Instructions Indication:Anxiety Start:06-Nov-2014 Instruction Type:Provider Instructions for Treatment Patient Instructions Indication:Fatigue Start:28-Aug-2014 Instruction Type:Provider Instructions for Treatment How to access health informa tion online Indication:Fatigue Start:26-Jul-2014 Instruction Type:Patient Education How to access health informa tion online - Detail Indication:Fatigue Start:26-Jul-2014 Instruction Type:Patient Education Patient Instructions Indication:Fatigue Start:26-Jul-2014 Instruction Type:Provider Instructions for Treatment [facility]; [facility] Work Phone: Instructions* Name Dates Details Patient Instructions Indication:Non-smoker Start:12-Nov-2020 Instruction Type:Provider Instructions for Treatment How to Access Health Informa tion Online using Patient Portal and [employer] Indication:Non-smoker Start:12-Nov-2020 Instruction Type:Patient Education How to Access Health Informa tion Online using Patient Portal and [employer] Apps Indication:Cough Start:02-Jun-2020 Instruction Type:Patient Education Patient Instructions Indication:Cough Start:02-Jun-2020 Instruction Type:Provider Instructions for Treatment Patient Instructions Indication:Cough Start:26-May-2020 Instruction Type:Provider Instructions for Treatment How to Access Health Informa tion Online using Patient Portal and 3rd [employer] Indication:Cough Start:26-May-2020 Instruction Type:Patient Education How to access health informa tion online Indication:Fatigue Start:06-Aug-2019 Instruction Type:Patient Education How to access health informa tion online - Detail Indication:Fatigue Start:06-Aug-2019 Instruction Type:Patient Education Patient Instructions Indication:Fatigue Start:06-Aug-2019 Instruction Type:Provider Instructions for Treatment Patient Instructions Indication:[facility] Start:09-Apr-2019 Instruction Type:Provider Instructions for Treatment How to access health informa tion online Indication:Itching Start:02-Mar-2019 Instruction Type:Patient Education How to access health informa tion online - Detail Indication:Itching Start:02-Mar-2019 Instruction Type:Patient Education Patient Instructions Indication:Itching Start:02-Mar-2019 Instruction Type:Provider Instructions for Treatment How to access health informa tion online Indication:Thyroid Nodule Start:03-Nov-2018 Instruction Type:Patient Education How to access health informa tion online - Detail Indication:Thyroid Nodule Start:03-Nov-2018 Instruction Type:Patient Education Patient Instructions Indication:Thyroid Nodule Start:03-Nov-2018 Instruction Type:Provider Instructions for Treatment How to access health informa tion online Indication:Elevated hemoglobin A1c Start:19-Oct-2017 Instruction Type:Patient Education How to access health informa tion online - Detail Indication:Elevated hemoglobin A1c Start:19-Oct-2017 Instruction Type:Patient Education Patient Instructions Indication:Elevated hemoglobin A1c Start:19-Oct-2017 Instruction Type:Provider Instructions for Treatment How to access health informa tion online Indication:Non-smoker Start:09-Jun-2017 Instruction Type:Patient Education How to access health informa tion online - Detail Indication:Non-smoker Start:09-Jun-2017 Instruction Type:Patient Education Patient Instructions Indication:Sore throat Start:09-Jun-2017 Instruction Type:Provider Instructions for Treatment How to access health informa tion online Indication:BMI 28.0-28.9,adult Start:23-May-2017 Instruction Type:Patient Education How to access health informa tion online - Detail Indication:BMI 28.0-28.9,adult Start:23-May-2017 Instruction Type:Patient Education Patient Instructions Indication:BMI 28.0-28.9,adult Start:23-May-2017 Instruction Type:Provider Instructions for Treatment How to access health informa tion online Indication:[facility] Start:09-Nov-2016 Instruction Type:Patient Education How to access health informa tion online - Detail Indication:[facility] Start:09-Nov-2016 Instruction Type:Patient Education Patient Instructions Indication:[facility] Start:09-Nov-2016 Instruction Type:Provider Instructions for Treatment How to access health informa tion online Indication:Oropharyngeal dysphagia Start:06-Sep-2016 Instruction Type:Patient Education How to access health informa tion online - Detail Indication:Oropharyngeal dysphagia Start:06-Sep-2016 Instruction Type:Patient Education Patient Instructions Indication:Oropharyngeal dysphagia Start:06-Sep-2016 Instruction Type:Provider Instructions for Treatment How to access health informa tion online Indication:Anxiety Start:08-Dec-2015 Instruction Type:Patient Education How to access health informa tion online - Detail Indication:Anxiety Start:08-Dec-2015 Instruction Type:Patient Education Patient Instructions Indication:Anxiety Start:08-Dec-2015 Instruction Type:Provider Instructions for Treatment Patient Instructions Indication:Anxiety Start:06-Nov-2014 Instruction Type:Provider Instructions for Treatment Patient Instructions Indication:Fatigue Start:28-Aug-2014 Instruction Type:Provider Instructions for Treatment How to access health informa tion online Indication:Fatigue Start:26-Jul-2014 Instruction Type:Patient Education How to access health informa tion online - Detail Indication:Fatigue Start:26-Jul-2014 Instruction Type:Patient Education Patient Instructions Indication:Fatigue Start:26-Jul-2014 Instruction Type:Provider Instructions for Treatment [facility]; [facility] Work Phone: Instructions* Name Dates Details Patient Instructions Indication:Non-smoker Start:12-Nov-2020 Instruction Type:Provider Instructions for Treatment How to Access Health Informa tion Online using Patient Portal and [employer]rd [employer] Indication:Non-smoker Start:12-Nov-2020 Instruction Type:Patient Education How to Access Health Informa tion Online using Patient Portal and [employer]rd [employer] Indication:Cough Start:02-Jun-2020 Instruction Type:Patient Education Patient Instructions Indication:Cough Start:02-Jun-2020 Instruction Type:Provider Instructions for Treatment Patient Instructions Indication:Cough Start:26-May-2020 Instruction Type:Provider Instructions for Treatment How to Access Health Informa tion Online using Patient Portal and [employer]rd [employer] Indication:Cough Start:26-May-2020 Instruction Type:Patient Education How to access health informa tion online Indication:Fatigue Start:06-Aug-2019 Instruction Type:Patient Education How to access health informa tion online - Detail Indication:Fatigue Start:06-Aug-2019 Instruction Type:Patient Education Patient Instructions Indication:Fatigue Start:06-Aug-2019 Instruction Type:Provider Instructions for Treatment Patient Instructions Indication:[facility] Start:09-Apr-2019 Instruction Type:Provider Instructions for Treatment How to access health informa tion online Indication:Itching Start:02-Mar-2019 Instruction Type:Patient Education How to access health informa tion online - Detail Indication:Itching Start:02-Mar-2019 Instruction Type:Patient Education Patient Instructions Indication:Itching Start:02-Mar-2019 Instruction Type:Provider Instructions for Treatment How to access health informa tion online Indication:Thyroid Nodule Start:03-Nov-2018 Instruction Type:Patient Education How to access health informa tion online - Detail Indication:Thyroid Nodule Start:03-Nov-2018 Instruction Type:Patient Education Patient Instructions Indication:Thyroid Nodule Start:03-Nov-2018 Instruction Type:Provider Instructions for Treatment How to access health informa tion online Indication:Elevated hemoglobin A1c Start:19-Oct-2017 Instruction Type:Patient Education How to access health informa tion online - Detail Indication:Elevated hemoglobin A1c Start:19-Oct-2017 Instruction Type:Patient Education Patient Instructions Indication:Elevated hemoglobin A1c Start:19-Oct-2017 Instruction Type:Provider Instructions for Treatment How to access health informa tion online Indication:Non-smoker Start:09-Jun-2017 Instruction Type:Patient Education How to access health informa tion online - Detail Indication:Non-smoker Start:09-Jun-2017 Instruction Type:Patient Education Patient Instructions Indication:Sore throat Start:09-Jun-2017 Instruction Type:Provider Instructions for Treatment How to access health informa tion online Indication:BMI 28.0-28.9,adult Start:23-May-2017 Instruction Type:Patient Education How to access health informa tion online - Detail Indication:BMI 28.0-28.9,adult Start:23-May-2017 Instruction Type:Patient Education Patient Instructions Indication:BMI 28.0-28.9,adult Start:23-May-2017 Instruction Type:Provider Instructions for Treatment How to access health informa tion online Indication:[facility] Start:09-Nov-2016 Instruction Type:Patient Education How to access health informa tion online - Detail Indication:[facility] Start:09-Nov-2016 Instruction Type:Patient Education Patient Instructions Indication:[facility] Start:09-Nov-2016 Instruction Type:Provider Instructions for Treatment How to access health informa tion online Indication:Oropharyngeal dysphagia Start:06-Sep-2016 Instruction Type:Patient Education How to access health informa tion online - Detail Indication:Oropharyngeal dysphagia Start:06-Sep-2016 Instruction Type:Patient Education Patient Instructions Indication:Oropharyngeal dysphagia Start:06-Sep-2016 Instruction Type:Provider Instructions for Treatment How to access health informa tion online Indication:Anxiety Start:08-Dec-2015 Instruction Type:Patient Education How to access health informa tion online - Detail Indication:Anxiety Start:08-Dec-2015 Instruction Type:Patient Education Patient Instructions Indication:Anxiety Start:08-Dec-2015 Instruction Type:Provider Instructions for Treatment Patient Instructions Indication:Anxiety Start:06-Nov-2014 Instruction Type:Provider Instructions for Treatment Patient Instructions Indication:Fatigue Start:28-Aug-2014 Instruction Type:Provider Instructions for Treatment How to access health informa tion online Indication:Fatigue Start:26-Jul-2014 Instruction Type:Patient Education How to access health informa tion online - Detail Indication:Fatigue Start:26-Jul-2014 Instruction Type:Patient Education Patient Instructions Indication:Fatigue Start:26-Jul-2014 Instruction Type:Provider Instructions for Treatment [facility]; [facility] Work Phone: Instructions* Name Dates Details Patient Instructions Indication:Non-smoker Start:10-Jun-2021 Instruction Type:Provider Instructions for Treatment How to Access Health Informa tion Online using Patient Portal and [employer]rd [employer] Indication:Non-smoker Start:10-Jun-2021 Instruction Type:Patient Education Patient Instructions Indication:COVID Start:01-Jun-2021 Instruction Type:Provider Instructions for Treatment Patient Instructions Indication:BMI 28.0-28.9,adult Start:26-May-2021 Instruction Type:Provider Instructions for Treatment How to Access Health Informa tion Online using Patient Portal and [employer]rd [employer] Indication:BMI 28.0-28.9,adult Start:26-May-2021 Instruction Type:Patient Education Patient Instructions Indication:Non-smoker Start:12-Nov-2020 Instruction Type:Provider Instructions for Treatment How to Access Health Informa tion Online using Patient Portal and [employer]rd [employer] Indication:Non-smoker Start:12-Nov-2020 Instruction Type:Patient Education How to Access Health Informa tion Online using Patient Portal and [employer]rd [employer] Indication:Cough Start:02-Jun-2020 Instruction Type:Patient Education Patient Instructions Indication:Cough Start:02-Jun-2020 Instruction Type:Provider Instructions for Treatment Patient Instructions Indication:Cough Start:26-May-2020 Instruction Type:Provider Instructions for Treatment How to Access Health Informa tion Online using Patient Portal and [employer]rd [employer] Indication:Cough Start:26-May-2020 Instruction Type:Patient Education How to access health informa tion online Indication:Fatigue Start:06-Aug-2019 Instruction Type:Patient Education How to access health informa tion online - Detail Indication:Fatigue Start:06-Aug-2019 Instruction Type:Patient Education Patient Instructions Indication:Fatigue Start:06-Aug-2019 Instruction Type:Provider Instructions for Treatment Patient Instructions Indication:[facility] Start:09-Apr-2019 Instruction Type:Provider Instructions for Treatment How to access health informa tion online Indication:Itching Start:02-Mar-2019 Instruction Type:Patient Education How to access health informa tion online - Detail Indication:Itching Start:02-Mar-2019 Instruction Type:Patient Education Patient Instructions Indication:Itching Start:02-Mar-2019 Instruction Type:Provider Instructions for Treatment How to access health informa tion online Indication:Thyroid Nodule Start:03-Nov-2018 Instruction Type:Patient Education How to access health informa tion online - Detail Indication:Thyroid Nodule Start:03-Nov-2018 Instruction Type:Patient Education Patient Instructions Indication:Thyroid Nodule Start:03-Nov-2018 Instruction Type:Provider Instructions for Treatment How to access health informa tion online Indication:Elevated hemoglobin A1c Start:19-Oct-2017 Instruction Type:Patient Education How to access health informa tion online - Detail Indication:Elevated hemoglobin A1c Start:19-Oct-2017 Instruction Type:Patient Education Patient Instructions Indication:Elevated hemoglobin A1c Start:19-Oct-2017 Instruction Type:Provider Instructions for Treatment How to access health informa tion online Indication:Non-smoker Start:09-Jun-2017 Instruction Type:Patient Education How to access health informa tion online - Detail Indication:Non-smoker Start:09-Jun-2017 Instruction Type:Patient Education Patient Instructions Indication:Sore throat Start:09-Jun-2017 Instruction Type:Provider Instructions for Treatment How to access health informa tion online Indication:BMI 28.0-28.9,adult Start:23-May-2017 Instruction Type:Patient Education How to access health informa tion online - Detail Indication:BMI 28.0-28.9,adult Start:23-May-2017 Instruction Type:Patient Education Patient Instructions Indication:BMI 28.0-28.9,adult Start:23-May-2017 Instruction Type:Provider Instructions for Treatment How to access health informa tion online Indication:[facility] Start:09-Nov-2016 Instruction Type:Patient Education How to access health informa tion online - Detail Indication:[facility] Start:09-Nov-2016 Instruction Type:Patient Education Patient Instructions Indication:[facility] Start:09-Nov-2016 Instruction Type:Provider Instructions for Treatment How to access health informa tion online Indication:Oropharyngeal dysphagia Start:06-Sep-2016 Instruction Type:Patient Education How to access health informa tion online - Detail Indication:Oropharyngeal dysphagia Start:06-Sep-2016 Instruction Type:Patient Education Patient Instructions Indication:Oropharyngeal dysphagia Start:06-Sep-2016 Instruction Type:Provider Instructions for Treatment How to access health informa tion online Indication:Anxiety Start:08-Dec-2015 Instruction Type:Patient Education How to access health informa tion online - Detail Indication:Anxiety Start:08-Dec-2015 Instruction Type:Patient Education Patient Instructions Indication:Anxiety Start:08-Dec-2015 Instruction Type:Provider Instructions for Treatment Patient Instructions Indication:Anxiety Start:06-Nov-2014 Instruction Type:Provider Instructions for Treatment Patient Instructions Indication:Fatigue Start:28-Aug-2014 Instruction Type:Provider Instructions for Treatment How to access health informa tion online Indication:Fatigue Start:26-Jul-2014 Instruction Type:Patient Education How to access health informa tion online - Detail Indication:Fatigue Start:26-Jul-2014 Instruction Type:Patient Education Patient Instructions Indication:Fatigue Start:26-Jul-2014 Instruction Type:Provider Instructions for Treatment [facility]; [facility] Work Phone: Instructions* Name Dates Details Patient Instructions Indication:Non-smoker Start:10-Jun-2021 Instruction Type:Provider Instructions for Treatment How to Access Health Informa tion Online using Patient Portal and [employer]rd [employer] Indication:Non-smoker Start:10-Jun-2021 Instruction Type:Patient Education Patient Instructions Indication:COVID Start:01-Jun-2021 Instruction Type:Provider Instructions for Treatment Patient Instructions Indication:BMI 28.0-28.9,adult Start:26-May-2021 Instruction Type:Provider Instructions for Treatment How to Access Health Informa tion Online using Patient Portal and [employer]rd [employer] Indication:BMI 28.0-28.9,adult Start:26-May-2021 Instruction Type:Patient Education Patient Instructions Indication:Non-smoker Start:12-Nov-2020 Instruction Type:Provider Instructions for Treatment How to Access Health Informa tion Online using Patient Portal and [employer]rd [employer] Indication:Non-smoker Start:12-Nov-2020 Instruction Type:Patient Education How to Access Health Informa tion Online using Patient Portal and [employer]rd [employer] Indication:Cough Start:02-Jun-2020 Instruction Type:Patient Education Patient Instructions Indication:Cough Start:02-Jun-2020 Instruction Type:Provider Instructions for Treatment Patient Instructions Indication:Cough Start:26-May-2020 Instruction Type:Provider Instructions for Treatment How to Access Health Informa tion Online using Patient Portal and [employer]rd [employer] Indication:Cough Start:26-May-2020 Instruction Type:Patient Education How to access health informa tion online Indication:Fatigue Start:06-Aug-2019 Instruction Type:Patient Education How to access health informa tion online - Detail Indication:Fatigue Start:06-Aug-2019 Instruction Type:Patient Education Patient Instructions Indication:Fatigue Start:06-Aug-2019 Instruction Type:Provider Instructions for Treatment Patient Instructions Indication:[facility] Start:09-Apr-2019 Instruction Type:Provider Instructions for Treatment How to access health informa tion online Indication:Itching Start:02-Mar-2019 Instruction Type:Patient Education How to access health informa tion online - Detail Indication:Itching Start:02-Mar-2019 Instruction Type:Patient Education Patient Instructions Indication:Itching Start:02-Mar-2019 Instruction Type:Provider Instructions for Treatment How to access health informa tion online Indication:Thyroid Nodule Start:03-Nov-2018 Instruction Type:Patient Education How to access health informa tion online - Detail Indication:Thyroid Nodule Start:03-Nov-2018 Instruction Type:Patient Education Patient Instructions Indication:Thyroid Nodule Start:03-Nov-2018 Instruction Type:Provider Instructions for Treatment How to access health informa tion online Indication:Elevated hemoglobin A1c Start:19-Oct-2017 Instruction Type:Patient Education How to access health informa tion online - Detail Indication:Elevated hemoglobin A1c Start:19-Oct-2017 Instruction Type:Patient Education Patient Instructions Indication:Elevated hemoglobin A1c Start:19-Oct-2017 Instruction Type:Provider Instructions for Treatment How to access health informa tion online Indication:Non-smoker Start:09-Jun-2017 Instruction Type:Patient Education How to access health informa tion online - Detail Indication:Non-smoker Start:09-Jun-2017 Instruction Type:Patient Education Patient Instructions Indication:Sore throat Start:09-Jun-2017 Instruction Type:Provider Instructions for Treatment How to access health informa tion online Indication:BMI 28.0-28.9,adult Start:23-May-2017 Instruction Type:Patient Education How to access health informa tion online - Detail Indication:BMI 28.0-28.9,adult Start:23-May-2017 Instruction Type:Patient Education Patient Instructions Indication:BMI 28.0-28.9,adult Start:23-May-2017 Instruction Type:Provider Instructions for Treatment How to access health informa tion online Indication:[facility] Start:09-Nov-2016 Instruction Type:Patient Education How to access health informa tion online - Detail Indication:[facility] Start:09-Nov-2016 Instruction Type:Patient Education Patient Instructions Indication:[facility] Start:09-Nov-2016 Instruction Type:Provider Instructions for Treatment How to access health informa tion online Indication:Oropharyngeal dysphagia Start:06-Sep-2016 Instruction Type:Patient Education How to access health informa tion online - Detail Indication:Oropharyngeal dysphagia Start:06-Sep-2016 Instruction Type:Patient Education Patient Instructions Indication:Oropharyngeal dysphagia Start:06-Sep-2016 Instruction Type:Provider Instructions for Treatment How to access health informa tion online Indication:Anxiety Start:08-Dec-2015 Instruction Type:Patient Education How to access health informa tion online - Detail Indication:Anxiety Start:08-Dec-2015 Instruction Type:Patient Education Patient Instructions Indication:Anxiety Start:08-Dec-2015 Instruction Type:Provider Instructions for Treatment Patient Instructions Indication:Anxiety Start:06-Nov-2014 Instruction Type:Provider Instructions for Treatment Patient Instructions Indication:Fatigue Start:28-Aug-2014 Instruction Type:Provider Instructions for Treatment How to access health informa tion online Indication:Fatigue Start:26-Jul-2014 Instruction Type:Patient Education How to access health informa tion online - Detail Indication:Fatigue Start:26-Jul-2014 Instruction Type:Patient Education Patient Instructions Indication:Fatigue Start:26-Jul-2014 Instruction Type:Provider Instructions for Treatment [facility]; [facility] Work Phone: Instructions* Name Dates Details DISCONTINUED - BLD CNT, COMP L CBC W/AUTO DIFF WBC ([id number]) Indication:Elevated hemoglobin A1c Start:29-Jul-2021 Instruction Type:Patient Education Patient Instructions Indication:BMI 27.0-27.9,adult Start:29-Jul-2021 Instruction Type:Provider Instructions for Treatment How to Access Health Informa tion Online using Patient Portal and [employer]rd [employer] Indication:BMI 27.0-27.9,adult Start:29-Jul-2021 Instruction Type:Patient Education Patient Instructions Indication:Non-smoker Start:10-Jun-2021 Instruction Type:Provider Instructions for Treatment How to Access Health Informa tion Online using Patient Portal and [employer]rd [employer] Indication:Non-smoker Start:10-Jun-2021 Instruction Type:Patient Education Patient Instructions Indication:COVID Start:01-Jun-2021 Instruction Type:Provider Instructions for Treatment Patient Instructions Indication:BMI 28.0-28.9,adult Start:26-May-2021 Instruction Type:Provider Instructions for Treatment How to Access Health Informa tion Online using Patient Portal and 3rd [employer] Indication:BMI 28.0-28.9,adult Start:26-May-2021 Instruction Type:Patient Education Patient Instructions Indication:Non-smoker Start:12-Nov-2020 Instruction Type:Provider Instructions for Treatment How to Access Health Informa tion Online using Patient Portal and [employer]rd [employer] Indication:Non-smoker Start:12-Nov-2020 Instruction Type:Patient Education How to Access Health Informa tion Online using Patient Portal and [employer]rd [employer] Indication:Cough Start:02-Jun-2020 Instruction Type:Patient Education Patient Instructions Indication:Cough Start:02-Jun-2020 Instruction Type:Provider Instructions for Treatment Patient Instructions Indication:Cough Start:26-May-2020 Instruction Type:Provider Instructions for Treatment How to Access Health Informa tion Online using Patient Portal and [employer]rd [employer] Indication:Cough Start:26-May-2020 Instruction Type:Patient Education How to access health informa tion online Indication:Fatigue Start:06-Aug-2019 Instruction Type:Patient Education How to access health informa tion online - Detail Indication:Fatigue Start:06-Aug-2019 Instruction Type:Patient Education Patient Instructions Indication:Fatigue Start:06-Aug-2019 Instruction Type:Provider Instructions for Treatment Patient Instructions Indication:[facility] Start:09-Apr-2019 Instruction Type:Provider Instructions for Treatment How to access health informa tion online Indication:Itching Start:02-Mar-2019 Instruction Type:Patient Education How to access health informa tion online - Detail Indication:Itching Start:02-Mar-2019 Instruction Type:Patient Education Patient Instructions Indication:Itching Start:02-Mar-2019 Instruction Type:Provider Instructions for Treatment How to access health informa tion online Indication:Thyroid Nodule Start:03-Nov-2018 Instruction Type:Patient Education How to access health informa tion online - Detail Indication:Thyroid Nodule Start:03-Nov-2018 Instruction Type:Patient Education Patient Instructions Indication:Thyroid Nodule Start:03-Nov-2018 Instruction Type:Provider Instructions for Treatment How to access health informa tion online Indication:Elevated hemoglobin A1c Start:19-Oct-2017 Instruction Type:Patient Education How to access health informa tion online - Detail Indication:Elevated hemoglobin A1c Start:19-Oct-2017 Instruction Type:Patient Education Patient Instructions Indication:Elevated hemoglobin A1c Start:19-Oct-2017 Instruction Type:Provider Instructions for Treatment How to access health informa tion online Indication:Non-smoker Start:09-Jun-2017 Instruction Type:Patient Education How to access health informa tion online - Detail Indication:Non-smoker Start:09-Jun-2017 Instruction Type:Patient Education Patient Instructions Indication:Sore throat Start:09-Jun-2017 Instruction Type:Provider Instructions for Treatment How to access health informa tion online Indication:BMI 28.0-28.9,adult Start:23-May-2017 Instruction Type:Patient Education How to access health informa tion online - Detail Indication:BMI 28.0-28.9,adult Start:23-May-2017 Instruction Type:Patient Education Patient Instructions Indication:BMI 28.0-28.9,adult Start:23-May-2017 Instruction Type:Provider Instructions for Treatment How to access health informa tion online Indication:[facility] Start:09-Nov-2016 Instruction Type:Patient Education How to access health informa tion online - Detail Indication:[facility] Start:09-Nov-2016 Instruction Type:Patient Education Patient Instructions Indication:[facility] Start:09-Nov-2016 Instruction Type:Provider Instructions for Treatment How to access health informa tion online Indication:Oropharyngeal dysphagia Start:06-Sep-2016 Instruction Type:Patient Education How to access health informa tion online - Detail Indication:Oropharyngeal dysphagia Start:06-Sep-2016 Instruction Type:Patient Education Patient Instructions Indication:Oropharyngeal dysphagia Start:06-Sep-2016 Instruction Type:Provider Instructions for Treatment How to access health informa tion online Indication:Anxiety Start:08-Dec-2015 Instruction Type:Patient Education How to access health informa tion online - Detail Indication:Anxiety Start:08-Dec-2015 Instruction Type:Patient Education Patient Instructions Indication:Anxiety Start:08-Dec-2015 Instruction Type:Provider Instructions for Treatment Patient Instructions Indication:Anxiety Start:06-Nov-2014 Instruction Type:Provider Instructions for Treatment Patient Instructions Indication:Fatigue Start:28-Aug-2014 Instruction Type:Provider Instructions for Treatment How to access health informa tion online Indication:Fatigue Start:26-Jul-2014 Instruction Type:Patient Education How to access health informa tion online - Detail Indication:Fatigue Start:26-Jul-2014 Instruction Type:Patient Education Patient Instructions Indication:Fatigue Start:26-Jul-2014 Instruction Type:Provider Instructions for Treatment [facility]; [facility] Work Phone: Instructions* Name Dates Details DISCONTINUED - BLD CNT, COMP L CBC W/AUTO DIFF WBC ([id number]) Indication:Elevated hemoglobin A1c Start:29-Jul-2021 Instruction Type:Patient Education Patient Instructions Indication:BMI 27.0-27.9,adult Start:29-Jul-2021 Instruction Type:Provider Instructions for Treatment How to Access Health Informa tion Online using Patient Portal and [employer]rd [employer] Apps Indication:BMI 27.0-27.9,adult Start:29-Jul-2021 Instruction Type:Patient Education Patient Instructions Indication:Non-smoker Start:10-Jun-2021 Instruction Type:Provider Instructions for Treatment How to Access Health Informa tion Online using Patient Portal and [employer]rd [employer] Apps Indication:Non-smoker Start:10-Jun-2021 Instruction Type:Patient Education Patient Instructions Indication:COVID Start:01-Jun-2021 Instruction Type:Provider Instructions for Treatment Patient Instructions Indication:BMI 28.0-28.9,adult Start:26-May-2021 Instruction Type:Provider Instructions for Treatment How to Access Health Informa tion Online using Patient Portal and [employer]rd [employer] Apps Indication:BMI 28.0-28.9,adult Start:26-May-2021 Instruction Type:Patient Education Patient Instructions Indication:Non-smoker Start:12-Nov-2020 Instruction Type:Provider Instructions for Treatment How to Access Health Informa tion Online using Patient Portal and [employer] Apps Indication:Non-smoker Start:12-Nov-2020 Instruction Type:Patient Education How to Access Health Informa tion Online using Patient Portal and [employer]rd [employer] Apps Indication:Cough Start:02-Jun-2020 Instruction Type:Patient Education Patient Instructions Indication:Cough Start:02-Jun-2020 Instruction Type:Provider Instructions for Treatment Patient Instructions Indication:Cough Start:26-May-2020 Instruction Type:Provider Instructions for Treatment How to Access Health Informa tion Online using Patient Portal and [employer]rd [employer] Apps Indication:Cough Start:26-May-2020 Instruction Type:Patient Education How to access health informa tion online Indication:Fatigue Start:06-Aug-2019 Instruction Type:Patient Education How to access health informa tion online - Detail Indication:Fatigue Start:06-Aug-2019 Instruction Type:Patient Education Patient Instructions Indication:Fatigue Start:06-Aug-2019 Instruction Type:Provider Instructions for Treatment Patient Instructions Indication:[facility] Start:09-Apr-2019 Instruction Type:Provider Instructions for Treatment How to access health informa tion online Indication:Itching Start:02-Mar-2019 Instruction Type:Patient Education How to access health informa tion online - Detail Indication:Itching Start:02-Mar-2019 Instruction Type:Patient Education Patient Instructions Indication:Itching Start:02-Mar-2019 Instruction Type:Provider Instructions for Treatment How to access health informa tion online Indication:Thyroid Nodule Start:03-Nov-2018 Instruction Type:Patient Education How to access health informa tion online - Detail Indication:Thyroid Nodule Start:03-Nov-2018 Instruction Type:Patient Education Patient Instructions Indication:Thyroid Nodule Start:03-Nov-2018 Instruction Type:Provider Instructions for Treatment How to access health informa tion online Indication:Elevated hemoglobin A1c Start:19-Oct-2017 Instruction Type:Patient Education How to access health informa tion online - Detail Indication:Elevated hemoglobin A1c Start:19-Oct-2017 Instruction Type:Patient Education Patient Instructions Indication:Elevated hemoglobin A1c Start:19-Oct-2017 Instruction Type:Provider Instructions for Treatment How to access health informa tion online Indication:Non-smoker Start:09-Jun-2017 Instruction Type:Patient Education How to access health informa tion online - Detail Indication:Non-smoker Start:09-Jun-2017 Instruction Type:Patient Education Patient Instructions Indication:Sore throat Start:09-Jun-2017 Instruction Type:Provider Instructions for Treatment How to access health informa tion online Indication:BMI 28.0-28.9,adult Start:23-May-2017 Instruction Type:Patient Education How to access health informa tion online - Detail Indication:BMI 28.0-28.9,adult Start:23-May-2017 Instruction Type:Patient Education Patient Instructions Indication:BMI 28.0-28.9,adult Start:23-May-2017 Instruction Type:Provider Instructions for Treatment How to access health informa tion online Indication:[facility] Start:09-Nov-2016 Instruction Type:Patient Education How to access health informa tion online - Detail Indication:[facility] Start:09-Nov-2016 Instruction Type:Patient Education Patient Instructions Indication:[facility] Start:09-Nov-2016 Instruction Type:Provider Instructions for Treatment How to access health informa tion online Indication:Oropharyngeal dysphagia Start:06-Sep-2016 Instruction Type:Patient Education How to access health informa tion online - Detail Indication:Oropharyngeal dysphagia Start:06-Sep-2016 Instruction Type:Patient Education Patient Instructions Indication:Oropharyngeal dysphagia Start:06-Sep-2016 Instruction Type:Provider Instructions for Treatment How to access health informa tion online Indication:Anxiety Start:08-Dec-2015 Instruction Type:Patient Education How to access health informa tion online - Detail Indication:Anxiety Start:08-Dec-2015 Instruction Type:Patient Education Patient Instructions Indication:Anxiety Start:08-Dec-2015 Instruction Type:Provider Instructions for Treatment Patient Instructions Indication:Anxiety Start:06-Nov-2014 Instruction Type:Provider Instructions for Treatment Patient Instructions Indication:Fatigue Start:28-Aug-2014 Instruction Type:Provider Instructions for Treatment How to access health informa tion online Indication:Fatigue Start:26-Jul-2014 Instruction Type:Patient Education How to access health informa tion online - Detail Indication:Fatigue Start:26-Jul-2014 Instruction Type:Patient Education Patient Instructions Indication:Fatigue Start:26-Jul-2014 Instruction Type:Provider Instructions for Treatment [facility]; [facility] Work Phone: Instructions* Name Dates Details Patient Instructions Indication:Non-smoker Start:17-Nov-2021 Instruction Type:Provider Instructions for Treatment How to Access Health Informa tion Online using Patient Portal and [employer] Apps Indication:Non-smoker Start:17-Nov-2021 Instruction Type:Patient Education DISCONTINUED - BLD CNT, COMP L CBC W/AUTO DIFF WBC ([id number]) Indication:Elevated hemoglobin A1c Start:29-Jul-2021 Instruction Type:Patient Education Patient Instructions Indication:BMI 27.0-27.9,adult Start:29-Jul-2021 Instruction Type:Provider Instructions for Treatment How to Access Health Informa tion Online using Patient Portal and [employer]rd [employer] Apps Indication:BMI 27.0-27.9,adult Start:29-Jul-2021 Instruction Type:Patient Education Patient Instructions Indication:Non-smoker Start:10-Jun-2021 Instruction Type:Provider Instructions for Treatment How to Access Health Informa tion Online using Patient Portal and [employer] Apps Indication:Non-smoker Start:10-Jun-2021 Instruction Type:Patient Education Patient Instructions Indication:COVID Start:01-Jun-2021 Instruction Type:Provider Instructions for Treatment Patient Instructions Indication:BMI 28.0-28.9,adult Start:26-May-2021 Instruction Type:Provider Instructions for Treatment How to Access Health Informa tion Online using Patient Portal and [employer]rd [employer] Apps Indication:BMI 28.0-28.9,adult Start:26-May-2021 Instruction Type:Patient Education Patient Instructions Indication:Non-smoker Start:12-Nov-2020 Instruction Type:Provider Instructions for Treatment How to Access Health Informa tion Online using Patient Portal and [employer] Indication:Non-smoker Start:12-Nov-2020 Instruction Type:Patient Education How to Access Health Informa tion Online using Patient Portal and [employer] Apps Indication:Cough Start:02-Jun-2020 Instruction Type:Patient Education Patient Instructions Indication:Cough Start:02-Jun-2020 Instruction Type:Provider Instructions for Treatment Patient Instructions Indication:Cough Start:26-May-2020 Instruction Type:Provider Instructions for Treatment How to Access Health Informa tion Online using Patient Portal and [employer] Apps Indication:Cough Start:26-May-2020 Instruction Type:Patient Education How to access health informa tion online Indication:Fatigue Start:06-Aug-2019 Instruction Type:Patient Education How to access health informa tion online - Detail Indication:Fatigue Start:06-Aug-2019 Instruction Type:Patient Education Patient Instructions Indication:Fatigue Start:06-Aug-2019 Instruction Type:Provider Instructions for Treatment Patient Instructions Indication:[facility] Start:09-Apr-2019 Instruction Type:Provider Instructions for Treatment How to access health informa tion online Indication:Itching Start:02-Mar-2019 Instruction Type:Patient Education How to access health informa tion online - Detail Indication:Itching Start:02-Mar-2019 Instruction Type:Patient Education Patient Instructions Indication:Itching Start:02-Mar-2019 Instruction Type:Provider Instructions for Treatment How to access health informa tion online Indication:Thyroid Nodule Start:03-Nov-2018 Instruction Type:Patient Education How to access health informa tion online - Detail Indication:Thyroid Nodule Start:03-Nov-2018 Instruction Type:Patient Education Patient Instructions Indication:Thyroid Nodule Start:03-Nov-2018 Instruction Type:Provider Instructions for Treatment How to access health informa tion online Indication:Elevated hemoglobin A1c Start:19-Oct-2017 Instruction Type:Patient Education How to access health informa tion online - Detail Indication:Elevated hemoglobin A1c Start:19-Oct-2017 Instruction Type:Patient Education Patient Instructions Indication:Elevated hemoglobin A1c Start:19-Oct-2017 Instruction Type:Provider Instructions for Treatment How to access health informa tion online Indication:Non-smoker Start:09-Jun-2017 Instruction Type:Patient Education How to access health informa tion online - Detail Indication:Non-smoker Start:09-Jun-2017 Instruction Type:Patient Education Patient Instructions Indication:Sore throat Start:09-Jun-2017 Instruction Type:Provider Instructions for Treatment How to access health informa tion online Indication:BMI 28.0-28.9,adult Start:23-May-2017 Instruction Type:Patient Education How to access health informa tion online - Detail Indication:BMI 28.0-28.9,adult Start:23-May-2017 Instruction Type:Patient Education Patient Instructions Indication:BMI 28.0-28.9,adult Start:23-May-2017 Instruction Type:Provider Instructions for Treatment How to access health informa tion online Indication:[facility] Start:09-Nov-2016 Instruction Type:Patient Education How to access health informa tion online - Detail Indication:[facility] Start:09-Nov-2016 Instruction Type:Patient Education Patient Instructions Indication:[facility] Start:09-Nov-2016 Instruction Type:Provider Instructions for Treatment How to access health informa tion online Indication:Oropharyngeal dysphagia Start:06-Sep-2016 Instruction Type:Patient Education How to access health informa tion online - Detail Indication:Oropharyngeal dysphagia Start:06-Sep-2016 Instruction Type:Patient Education Patient Instructions Indication:Oropharyngeal dysphagia Start:06-Sep-2016 Instruction Type:Provider Instructions for Treatment How to access health informa tion online Indication:Anxiety Start:08-Dec-2015 Instruction Type:Patient Education How to access health informa tion online - Detail Indication:Anxiety Start:08-Dec-2015 Instruction Type:Patient Education Patient Instructions Indication:Anxiety Start:08-Dec-2015 Instruction Type:Provider Instructions for Treatment Patient Instructions Indication:Anxiety Start:06-Nov-2014 Instruction Type:Provider Instructions for Treatment Patient Instructions Indication:Fatigue Start:28-Aug-2014 Instruction Type:Provider Instructions for Treatment How to access health informa tion online Indication:Fatigue Start:26-Jul-2014 Instruction Type:Patient Education How to access health informa tion online - Detail Indication:Fatigue Start:26-Jul-2014 Instruction Type:Patient Education Patient Instructions Indication:Fatigue Start:26-Jul-2014 Instruction Type:Provider Instructions for Treatment [facility]; [facility] Work Phone: Instructions* Name Dates Details Patient Instructions Indication:Non-smoker Start:17-Nov-2021 Instruction Type:Provider Instructions for Treatment How to Access Health Informa tion Online using Patient Portal and [employer] Apps Indication:Non-smoker Start:17-Nov-2021 Instruction Type:Patient Education DISCONTINUED - BLD CNT, COMP L CBC W/AUTO DIFF WBC ([id number]) Indication:Elevated hemoglobin A1c Start:29-Jul-2021 Instruction Type:Patient Education Patient Instructions Indication:BMI 27.0-27.9,adult Start:29-Jul-2021 Instruction Type:Provider Instructions for Treatment How to Access Health Informa tion Online using Patient Portal and [employer]rd [employer] Apps Indication:BMI 27.0-27.9,adult Start:29-Jul-2021 Instruction Type:Patient Education Patient Instructions Indication:Non-smoker Start:10-Jun-2021 Instruction Type:Provider Instructions for Treatment How to Access Health Informa tion Online using Patient Portal and [employer] Apps Indication:Non-smoker Start:10-Jun-2021 Instruction Type:Patient Education Patient Instructions Indication:COVID Start:01-Jun-2021 Instruction Type:Provider Instructions for Treatment Patient Instructions Indication:BMI 28.0-28.9,adult Start:26-May-2021 Instruction Type:Provider Instructions for Treatment How to Access Health Informa tion Online using Patient Portal and [employer]rd [employer] Apps Indication:BMI 28.0-28.9,adult Start:26-May-2021 Instruction Type:Patient Education Patient Instructions Indication:Non-smoker Start:12-Nov-2020 Instruction Type:Provider Instructions for Treatment How to Access Health Informa tion Online using Patient Portal and [employer] Apps Indication:Non-smoker Start:12-Nov-2020 Instruction Type:Patient Education How to Access Health Informa tion Online using Patient Portal and [employer]rd [employer] Apps Indication:Cough Start:02-Jun-2020 Instruction Type:Patient Education Patient Instructions Indication:Cough Start:02-Jun-2020 Instruction Type:Provider Instructions for Treatment Patient Instructions Indication:Cough Start:26-May-2020 Instruction Type:Provider Instructions for Treatment How to Access Health Informa tion Online using Patient Portal and [employer] Apps Indication:Cough Start:26-May-2020 Instruction Type:Patient Education How to access health informa tion online Indication:Fatigue Start:06-Aug-2019 Instruction Type:Patient Education How to access health informa tion online - Detail Indication:Fatigue Start:06-Aug-2019 Instruction Type:Patient Education Patient Instructions Indication:Fatigue Start:06-Aug-2019 Instruction Type:Provider Instructions for Treatment Patient Instructions Indication:[facility] Start:09-Apr-2019 Instruction Type:Provider Instructions for Treatment How to access health informa tion online Indication:Itching Start:02-Mar-2019 Instruction Type:Patient Education How to access health informa tion online - Detail Indication:Itching Start:02-Mar-2019 Instruction Type:Patient Education Patient Instructions Indication:Itching Start:02-Mar-2019 Instruction Type:Provider Instructions for Treatment How to access health informa tion online Indication:Thyroid Nodule Start:03-Nov-2018 Instruction Type:Patient Education How to access health informa tion online - Detail Indication:Thyroid Nodule Start:03-Nov-2018 Instruction Type:Patient Education Patient Instructions Indication:Thyroid Nodule Start:03-Nov-2018 Instruction Type:Provider Instructions for Treatment How to access health informa tion online Indication:Elevated hemoglobin A1c Start:19-Oct-2017 Instruction Type:Patient Education How to access health informa tion online - Detail Indication:Elevated hemoglobin A1c Start:19-Oct-2017 Instruction Type:Patient Education Patient Instructions Indication:Elevated hemoglobin A1c Start:19-Oct-2017 Instruction Type:Provider Instructions for Treatment How to access health informa tion online Indication:Non-smoker Start:09-Jun-2017 Instruction Type:Patient Education How to access health informa tion online - Detail Indication:Non-smoker Start:09-Jun-2017 Instruction Type:Patient Education Patient Instructions Indication:Sore throat Start:09-Jun-2017 Instruction Type:Provider Instructions for Treatment How to access health informa tion online Indication:BMI 28.0-28.9,adult Start:23-May-2017 Instruction Type:Patient Education How to access health informa tion online - Detail Indication:BMI 28.0-28.9,adult Start:23-May-2017 Instruction Type:Patient Education Patient Instructions Indication:BMI 28.0-28.9,adult Start:23-May-2017 Instruction Type:Provider Instructions for Treatment How to access health informa tion online Indication:[facility] Start:09-Nov-2016 Instruction Type:Patient Education How to access health informa tion online - Detail Indication:[facility] Start:09-Nov-2016 Instruction Type:Patient Education Patient Instructions Indication:[facility] Start:09-Nov-2016 Instruction Type:Provider Instructions for Treatment How to access health informa tion online Indication:Oropharyngeal dysphagia Start:06-Sep-2016 Instruction Type:Patient Education How to access health informa tion online - Detail Indication:Oropharyngeal dysphagia Start:06-Sep-2016 Instruction Type:Patient Education Patient Instructions Indication:Oropharyngeal dysphagia Start:06-Sep-2016 Instruction Type:Provider Instructions for Treatment How to access health informa tion online Indication:Anxiety Start:08-Dec-2015 Instruction Type:Patient Education How to access health informa tion online - Detail Indication:Anxiety Start:08-Dec-2015 Instruction Type:Patient Education Patient Instructions Indication:Anxiety Start:08-Dec-2015 Instruction Type:Provider Instructions for Treatment Patient Instructions Indication:Anxiety Start:06-Nov-2014 Instruction Type:Provider Instructions for Treatment Patient Instructions Indication:Fatigue Start:28-Aug-2014 Instruction Type:Provider Instructions for Treatment How to access health informa tion online Indication:Fatigue Start:26-Jul-2014 Instruction Type:Patient Education How to access health informa tion online - Detail Indication:Fatigue Start:26-Jul-2014 Instruction Type:Patient Education Patient Instructions Indication:Fatigue Start:26-Jul-2014 Instruction Type:Provider Instructions for Treatment [facility]; [facility] Work Phone: Instructions* Name Dates Details Patient Instructions Indication:Non-smoker Start:17-Nov-2021 Instruction Type:Provider Instructions for Treatment How to Access Health Informa tion Online using Patient Portal and [employer]rd [employer] Apps Indication:Non-smoker Start:17-Nov-2021 Instruction Type:Patient Education DISCONTINUED - BLD CNT, COMP L CBC W/AUTO DIFF WBC ([id number]) Indication:Elevated hemoglobin A1c Start:29-Jul-2021 Instruction Type:Patient Education Patient Instructions Indication:BMI 27.0-27.9,adult Start:29-Jul-2021 Instruction Type:Provider Instructions for Treatment How to Access Health Informa tion Online using Patient Portal and [employer]rd [employer] Apps Indication:BMI 27.0-27.9,adult Start:29-Jul-2021 Instruction Type:Patient Education Patient Instructions Indication:Non-smoker Start:10-Jun-2021 Instruction Type:Provider Instructions for Treatment How to Access Health Informa tion Online using Patient Portal and [employer] Apps Indication:Non-smoker Start:10-Jun-2021 Instruction Type:Patient Education Patient Instructions Indication:COVID Start:01-Jun-2021 Instruction Type:Provider Instructions for Treatment Patient Instructions Indication:BMI 28.0-28.9,adult Start:26-May-2021 Instruction Type:Provider Instructions for Treatment How to Access Health Informa tion Online using Patient Portal and [employer]rd [employer] Apps Indication:BMI 28.0-28.9,adult Start:26-May-2021 Instruction Type:Patient Education Patient Instructions Indication:Non-smoker Start:12-Nov-2020 Instruction Type:Provider Instructions for Treatment How to Access Health Informa tion Online using Patient Portal and [employer] Apps Indication:Non-smoker Start:12-Nov-2020 Instruction Type:Patient Education How to Access Health Informa tion Online using Patient Portal and [employer]rd [employer] Apps Indication:Cough Start:02-Jun-2020 Instruction Type:Patient Education Patient Instructions Indication:Cough Start:02-Jun-2020 Instruction Type:Provider Instructions for Treatment Patient Instructions Indication:Cough Start:26-May-2020 Instruction Type:Provider Instructions for Treatment How to Access Health Informa tion Online using Patient Portal and [employer] Apps Indication:Cough Start:26-May-2020 Instruction Type:Patient Education How to access health informa tion online Indication:Fatigue Start:06-Aug-2019 Instruction Type:Patient Education How to access health informa tion online - Detail Indication:Fatigue Start:06-Aug-2019 Instruction Type:Patient Education Patient Instructions Indication:Fatigue Start:06-Aug-2019 Instruction Type:Provider Instructions for Treatment Patient Instructions Indication:[facility] Start:09-Apr-2019 Instruction Type:Provider Instructions for Treatment How to access health informa tion online Indication:Itching Start:02-Mar-2019 Instruction Type:Patient Education How to access health informa tion online - Detail Indication:Itching Start:02-Mar-2019 Instruction Type:Patient Education Patient Instructions Indication:Itching Start:02-Mar-2019 Instruction Type:Provider Instructions for Treatment How to access health informa tion online Indication:Thyroid Nodule Start:03-Nov-2018 Instruction Type:Patient Education How to access health informa tion online - Detail Indication:Thyroid Nodule Start:03-Nov-2018 Instruction Type:Patient Education Patient Instructions Indication:Thyroid Nodule Start:03-Nov-2018 Instruction Type:Provider Instructions for Treatment How to access health informa tion online Indication:Elevated hemoglobin A1c Start:19-Oct-2017 Instruction Type:Patient Education How to access health informa tion online - Detail Indication:Elevated hemoglobin A1c Start:19-Oct-2017 Instruction Type:Patient Education Patient Instructions Indication:Elevated hemoglobin A1c Start:19-Oct-2017 Instruction Type:Provider Instructions for Treatment How to access health informa tion online Indication:Non-smoker Start:09-Jun-2017 Instruction Type:Patient Education How to access health informa tion online - Detail Indication:Non-smoker Start:09-Jun-2017 Instruction Type:Patient Education Patient Instructions Indication:Sore throat Start:09-Jun-2017 Instruction Type:Provider Instructions for Treatment How to access health informa tion online Indication:BMI 28.0-28.9,adult Start:23-May-2017 Instruction Type:Patient Education How to access health informa tion online - Detail Indication:BMI 28.0-28.9,adult Start:23-May-2017 Instruction Type:Patient Education Patient Instructions Indication:BMI 28.0-28.9,adult Start:23-May-2017 Instruction Type:Provider Instructions for Treatment How to access health informa tion online Indication:[facility] Start:09-Nov-2016 Instruction Type:Patient Education How to access health informa tion online - Detail Indication:[facility] Start:09-Nov-2016 Instruction Type:Patient Education Patient Instructions Indication:[facility] Start:09-Nov-2016 Instruction Type:Provider Instructions for Treatment How to access health informa tion online Indication:Oropharyngeal dysphagia Start:06-Sep-2016 Instruction Type:Patient Education How to access health informa tion online - Detail Indication:Oropharyngeal dysphagia Start:06-Sep-2016 Instruction Type:Patient Education Patient Instructions Indication:Oropharyngeal dysphagia Start:06-Sep-2016 Instruction Type:Provider Instructions for Treatment How to access health informa tion online Indication:Anxiety Start:08-Dec-2015 Instruction Type:Patient Education How to access health informa tion online - Detail Indication:Anxiety Start:08-Dec-2015 Instruction Type:Patient Education Patient Instructions Indication:Anxiety Start:08-Dec-2015 Instruction Type:Provider Instructions for Treatment Patient Instructions Indication:Anxiety Start:06-Nov-2014 Instruction Type:Provider Instructions for Treatment Patient Instructions Indication:Fatigue Start:28-Aug-2014 Instruction Type:Provider Instructions for Treatment How to access health informa tion online Indication:Fatigue Start:26-Jul-2014 Instruction Type:Patient Education How to access health informa tion online - Detail Indication:Fatigue Start:26-Jul-2014 Instruction Type:Patient Education Patient Instructions Indication:Fatigue Start:26-Jul-2014 Instruction Type:Provider Instructions for Treatment [facility]; [facility] Work Phone: Instructions* Name Dates Details Patient Instructions Indication:Non-smoker Start:17-Nov-2021 Instruction Type:Provider Instructions for Treatment How to Access Health Informa tion Online using Patient Portal and [employer]rd [employer] Apps Indication:Non-smoker Start:17-Nov-2021 Instruction Type:Patient Education DISCONTINUED - BLD CNT, COMP L CBC W/AUTO DIFF WBC ([id number]) Indication:Elevated hemoglobin A1c Start:29-Jul-2021 Instruction Type:Patient Education Patient Instructions Indication:BMI 27.0-27.9,adult Start:29-Jul-2021 Instruction Type:Provider Instructions for Treatment How to Access Health Informa tion Online using Patient Portal and [employer]rd [employer] Apps Indication:BMI 27.0-27.9,adult Start:29-Jul-2021 Instruction Type:Patient Education Patient Instructions Indication:Non-smoker Start:10-Jun-2021 Instruction Type:Provider Instructions for Treatment How to Access Health Informa tion Online using Patient Portal and [employer]rd [employer] Apps Indication:Non-smoker Start:10-Jun-2021 Instruction Type:Patient Education Patient Instructions Indication:COVID Start:01-Jun-2021 Instruction Type:Provider Instructions for Treatment Patient Instructions Indication:BMI 28.0-28.9,adult Start:26-May-2021 Instruction Type:Provider Instructions for Treatment How to Access Health Informa tion Online using Patient Portal and [employer]rd [employer] Apps Indication:BMI 28.0-28.9,adult Start:26-May-2021 Instruction Type:Patient Education Patient Instructions Indication:Non-smoker Start:12-Nov-2020 Instruction Type:Provider Instructions for Treatment How to Access Health Informa tion Online using Patient Portal and [employer]rd [employer] Apps Indication:Non-smoker Start:12-Nov-2020 Instruction Type:Patient Education How to Access Health Informa tion Online using Patient Portal and [employer]rd [employer] Apps Indication:Cough Start:02-Jun-2020 Instruction Type:Patient Education Patient Instructions Indication:Cough Start:02-Jun-2020 Instruction Type:Provider Instructions for Treatment Patient Instructions Indication:Cough Start:26-May-2020 Instruction Type:Provider Instructions for Treatment How to Access Health Informa tion Online using Patient Portal and [employer]rd [employer] Apps Indication:Cough Start:26-May-2020 Instruction Type:Patient Education How to access health informa tion online Indication:Fatigue Start:06-Aug-2019 Instruction Type:Patient Education How to access health informa tion online - Detail Indication:Fatigue Start:06-Aug-2019 Instruction Type:Patient Education Patient Instructions Indication:Fatigue Start:06-Aug-2019 Instruction Type:Provider Instructions for Treatment Patient Instructions Indication:[facility] Start:09-Apr-2019 Instruction Type:Provider Instructions for Treatment How to access health informa tion online Indication:Itching Start:02-Mar-2019 Instruction Type:Patient Education How to access health informa tion online - Detail Indication:Itching Start:02-Mar-2019 Instruction Type:Patient Education Patient Instructions Indication:Itching Start:02-Mar-2019 Instruction Type:Provider Instructions for Treatment How to access health informa tion online Indication:Thyroid Nodule Start:03-Nov-2018 Instruction Type:Patient Education How to access health informa tion online - Detail Indication:Thyroid Nodule Start:03-Nov-2018 Instruction Type:Patient Education Patient Instructions Indication:Thyroid Nodule Start:03-Nov-2018 Instruction Type:Provider Instructions for Treatment How to access health informa tion online Indication:Elevated hemoglobin A1c Start:19-Oct-2017 Instruction Type:Patient Education How to access health informa tion online - Detail Indication:Elevated hemoglobin A1c Start:19-Oct-2017 Instruction Type:Patient Education Patient Instructions Indication:Elevated hemoglobin A1c Start:19-Oct-2017 Instruction Type:Provider Instructions for Treatment How to access health informa tion online Indication:Non-smoker Start:09-Jun-2017 Instruction Type:Patient Education How to access health informa tion online - Detail Indication:Non-smoker Start:09-Jun-2017 Instruction Type:Patient Education Patient Instructions Indication:Sore throat Start:09-Jun-2017 Instruction Type:Provider Instructions for Treatment How to access health informa tion online Indication:BMI 28.0-28.9,adult Start:23-May-2017 Instruction Type:Patient Education How to access health informa tion online - Detail Indication:BMI 28.0-28.9,adult Start:23-May-2017 Instruction Type:Patient Education Patient Instructions Indication:BMI 28.0-28.9,adult Start:23-May-2017 Instruction Type:Provider Instructions for Treatment How to access health informa tion online Indication:[facility] Start:09-Nov-2016 Instruction Type:Patient Education How to access health informa tion online - Detail Indication:[facility] Start:09-Nov-2016 Instruction Type:Patient Education Patient Instructions Indication:[facility] Start:09-Nov-2016 Instruction Type:Provider Instructions for Treatment How to access health informa tion online Indication:Oropharyngeal dysphagia Start:06-Sep-2016 Instruction Type:Patient Education How to access health informa tion online - Detail Indication:Oropharyngeal dysphagia Start:06-Sep-2016 Instruction Type:Patient Education Patient Instructions Indication:Oropharyngeal dysphagia Start:06-Sep-2016 Instruction Type:Provider Instructions for Treatment How to access health informa tion online Indication:Anxiety Start:08-Dec-2015 Instruction Type:Patient Education How to access health informa tion online - Detail Indication:Anxiety Start:08-Dec-2015 Instruction Type:Patient Education Patient Instructions Indication:Anxiety Start:08-Dec-2015 Instruction Type:Provider Instructions for Treatment Patient Instructions Indication:Anxiety Start:06-Nov-2014 Instruction Type:Provider Instructions for Treatment Patient Instructions Indication:Fatigue Start:28-Aug-2014 Instruction Type:Provider Instructions for Treatment How to access health informa tion online Indication:Fatigue Start:26-Jul-2014 Instruction Type:Patient Education How to access health informa tion online - Detail Indication:Fatigue Start:26-Jul-2014 Instruction Type:Patient Education Patient Instructions Indication:Fatigue Start:26-Jul-2014 Instruction Type:Provider Instructions for Treatment [facility]; [facility] Work Phone: Instructions* Name Dates Details Patient Instructions Indication:Non-smoker Start:17-Nov-2021 Instruction Type:Provider Instructions for Treatment How to Access Health Informa tion Online using Patient Portal and [employer]rd [employer] Apps Indication:Non-smoker Start:17-Nov-2021 Instruction Type:Patient Education DISCONTINUED - BLD CNT, COMP L CBC W/AUTO DIFF WBC ([id number]) Indication:Elevated hemoglobin A1c Start:29-Jul-2021 Instruction Type:Patient Education Patient Instructions Indication:BMI 27.0-27.9,adult Start:29-Jul-2021 Instruction Type:Provider Instructions for Treatment How to Access Health Informa tion Online using Patient Portal and [employer]rd [employer] Apps Indication:BMI 27.0-27.9,adult Start:29-Jul-2021 Instruction Type:Patient Education Patient Instructions Indication:Non-smoker Start:10-Jun-2021 Instruction Type:Provider Instructions for Treatment How to Access Health Informa tion Online using Patient Portal and [employer] Apps Indication:Non-smoker Start:10-Jun-2021 Instruction Type:Patient Education Patient Instructions Indication:COVID Start:01-Jun-2021 Instruction Type:Provider Instructions for Treatment Patient Instructions Indication:BMI 28.0-28.9,adult Start:26-May-2021 Instruction Type:Provider Instructions for Treatment How to Access Health Informa tion Online using Patient Portal and [employer]rd [employer] Apps Indication:BMI 28.0-28.9,adult Start:26-May-2021 Instruction Type:Patient Education Patient Instructions Indication:Non-smoker Start:12-Nov-2020 Instruction Type:Provider Instructions for Treatment How to Access Health Informa tion Online using Patient Portal and [employer] Apps Indication:Non-smoker Start:12-Nov-2020 Instruction Type:Patient Education How to Access Health Informa tion Online using Patient Portal and [employer]rd [employer] Apps Indication:Cough Start:02-Jun-2020 Instruction Type:Patient Education Patient Instructions Indication:Cough Start:02-Jun-2020 Instruction Type:Provider Instructions for Treatment Patient Instructions Indication:Cough Start:26-May-2020 Instruction Type:Provider Instructions for Treatment How to Access Health Informa tion Online using Patient Portal and [employer]rd [employer] Apps Indication:Cough Start:26-May-2020 Instruction Type:Patient Education How to access health informa tion online Indication:Fatigue Start:06-Aug-2019 Instruction Type:Patient Education How to access health informa tion online - Detail Indication:Fatigue Start:06-Aug-2019 Instruction Type:Patient Education Patient Instructions Indication:Fatigue Start:06-Aug-2019 Instruction Type:Provider Instructions for Treatment Patient Instructions Indication:[facility] Start:09-Apr-2019 Instruction Type:Provider Instructions for Treatment How to access health informa tion online Indication:Itching Start:02-Mar-2019 Instruction Type:Patient Education How to access health informa tion online - Detail Indication:Itching Start:02-Mar-2019 Instruction Type:Patient Education Patient Instructions Indication:Itching Start:02-Mar-2019 Instruction Type:Provider Instructions for Treatment How to access health informa tion online Indication:Thyroid Nodule Start:03-Nov-2018 Instruction Type:Patient Education How to access health informa tion online - Detail Indication:Thyroid Nodule Start:03-Nov-2018 Instruction Type:Patient Education Patient Instructions Indication:Thyroid Nodule Start:03-Nov-2018 Instruction Type:Provider Instructions for Treatment How to access health informa tion online Indication:Elevated hemoglobin A1c Start:19-Oct-2017 Instruction Type:Patient Education How to access health informa tion online - Detail Indication:Elevated hemoglobin A1c Start:19-Oct-2017 Instruction Type:Patient Education Patient Instructions Indication:Elevated hemoglobin A1c Start:19-Oct-2017 Instruction Type:Provider Instructions for Treatment How to access health informa tion online Indication:Non-smoker Start:09-Jun-2017 Instruction Type:Patient Education How to access health informa tion online - Detail Indication:Non-smoker Start:09-Jun-2017 Instruction Type:Patient Education Patient Instructions Indication:Sore throat Start:09-Jun-2017 Instruction Type:Provider Instructions for Treatment How to access health informa tion online Indication:BMI 28.0-28.9,adult Start:23-May-2017 Instruction Type:Patient Education How to access health informa tion online - Detail Indication:BMI 28.0-28.9,adult Start:23-May-2017 Instruction Type:Patient Education Patient Instructions Indication:BMI 28.0-28.9,adult Start:23-May-2017 Instruction Type:Provider Instructions for Treatment How to access health informa tion online Indication:[facility] Start:09-Nov-2016 Instruction Type:Patient Education How to access health informa tion online - Detail Indication:[facility] Start:09-Nov-2016 Instruction Type:Patient Education Patient Instructions Indication:[facility] Start:09-Nov-2016 Instruction Type:Provider Instructions for Treatment How to access health informa tion online Indication:Oropharyngeal dysphagia Start:06-Sep-2016 Instruction Type:Patient Education How to access health informa tion online - Detail Indication:Oropharyngeal dysphagia Start:06-Sep-2016 Instruction Type:Patient Education Patient Instructions Indication:Oropharyngeal dysphagia Start:06-Sep-2016 Instruction Type:Provider Instructions for Treatment How to access health informa tion online Indication:Anxiety Start:08-Dec-2015 Instruction Type:Patient Education How to access health informa tion online - Detail Indication:Anxiety Start:08-Dec-2015 Instruction Type:Patient Education Patient Instructions Indication:Anxiety Start:08-Dec-2015 Instruction Type:Provider Instructions for Treatment Patient Instructions Indication:Anxiety Start:06-Nov-2014 Instruction Type:Provider Instructions for Treatment Patient Instructions Indication:Fatigue Start:28-Aug-2014 Instruction Type:Provider Instructions for Treatment How to access health informa tion online Indication:Fatigue Start:26-Jul-2014 Instruction Type:Patient Education How to access health informa tion online - Detail Indication:Fatigue Start:26-Jul-2014 Instruction Type:Patient Education Patient Instructions Indication:Fatigue Start:26-Jul-2014 Instruction Type:Provider Instructions for Treatment [facility]; [facility] Work Phone: Instructions* Name Dates Details Patient Instructions Indication:Non-smoker Start:17-Nov-2021 Instruction Type:Provider Instructions for Treatment How to Access Health Informa tion Online using Patient Portal and [employer]rd [employer] Apps Indication:Non-smoker Start:7-Rell-2022 Instruction Type:Patient Education DISCONTINUED - BLD CNT, COMP L CBC W/AUTO DIFF WBC ([id number]) Indication:Elevated hemoglobin A1c Start:29-Jul-2021 Instruction Type:Patient Education Patient Instructions Indication:BMI 27.0-27.9,adult Start:29-Jul-2021 Instruction Type:Provider Instructions for Treatment How to Access Health Informa tion Online using Patient Portal and [employer]rd [employer] Apps Indication:BMI 27.0-27.9,adult Start:29-Jul-2021 Instruction Type:Patient Education Patient Instructions Indication:Non-smoker Start:10-Jun-2021 Instruction Type:Provider Instructions for Treatment How to Access Health Informa tion Online using Patient Portal and [employer] Apps Indication:Non-smoker Start:10-Jun-2021 Instruction Type:Patient Education Patient Instructions Indication:COVID Start:01-Jun-2021 Instruction Type:Provider Instructions for Treatment Patient Instructions Indication:BMI 28.0-28.9,adult Start:26-May-2021 Instruction Type:Provider Instructions for Treatment How to Access Health Informa tion Online using Patient Portal and [employer]rd [employer] Apps Indication:BMI 28.0-28.9,adult Start:26-May-2021 Instruction Type:Patient Education Patient Instructions Indication:Non-smoker Start:12-Nov-2020 Instruction Type:Provider Instructions for Treatment How to Access Health Informa tion Online using Patient Portal and [employer] Apps Indication:Non-smoker Start:12-Nov-2020 Instruction Type:Patient Education How to Access Health Informa tion Online using Patient Portal and [employer]rd [employer] Apps Indication:Cough Start:02-Jun-2020 Instruction Type:Patient Education Patient Instructions Indication:Cough Start:02-Jun-2020 Instruction Type:Provider Instructions for Treatment Patient Instructions Indication:Cough Start:26-May-2020 Instruction Type:Provider Instructions for Treatment How to Access Health Informa tion Online using Patient Portal and [employer]rd [employer] Apps Indication:Cough Start:26-May-2020 Instruction Type:Patient Education How to access health informa tion online Indication:Fatigue Start:06-Aug-2019 Instruction Type:Patient Education How to access health informa tion online - Detail Indication:Fatigue Start:06-Aug-2019 Instruction Type:Patient Education Patient Instructions Indication:Fatigue Start:06-Aug-2019 Instruction Type:Provider Instructions for Treatment Patient Instructions Indication:[facility] Start:09-Apr-2019 Instruction Type:Provider Instructions for Treatment How to access health informa tion online Indication:Itching Start:02-Mar-2019 Instruction Type:Patient Education How to access health informa tion online - Detail Indication:Itching Start:02-Mar-2019 Instruction Type:Patient Education Patient Instructions Indication:Itching Start:02-Mar-2019 Instruction Type:Provider Instructions for Treatment How to access health informa tion online Indication:Thyroid Nodule Start:03-Nov-2018 Instruction Type:Patient Education How to access health informa tion online - Detail Indication:Thyroid Nodule Start:03-Nov-2018 Instruction Type:Patient Education Patient Instructions Indication:Thyroid Nodule Start:03-Nov-2018 Instruction Type:Provider Instructions for Treatment How to access health informa tion online Indication:Elevated hemoglobin A1c Start:19-Oct-2017 Instruction Type:Patient Education How to access health informa tion online - Detail Indication:Elevated hemoglobin A1c Start:19-Oct-2017 Instruction Type:Patient Education Patient Instructions Indication:Elevated hemoglobin A1c Start:19-Oct-2017 Instruction Type:Provider Instructions for Treatment How to access health informa tion online Indication:Non-smoker Start:09-Jun-2017 Instruction Type:Patient Education How to access health informa tion online - Detail Indication:Non-smoker Start:09-Jun-2017 Instruction Type:Patient Education Patient Instructions Indication:Sore throat Start:09-Jun-2017 Instruction Type:Provider Instructions for Treatment How to access health informa tion online Indication:BMI 28.0-28.9,adult Start:23-May-2017 Instruction Type:Patient Education How to access health informa tion online - Detail Indication:BMI 28.0-28.9,adult Start:23-May-2017 Instruction Type:Patient Education Patient Instructions Indication:BMI 28.0-28.9,adult Start:23-May-2017 Instruction Type:Provider Instructions for Treatment How to access health informa tion online Indication:[facility] Start:09-Nov-2016 Instruction Type:Patient Education How to access health informa tion online - Detail Indication:[facility] Start:09-Nov-2016 Instruction Type:Patient Education Patient Instructions Indication:[facility] Start:09-Nov-2016 Instruction Type:Provider Instructions for Treatment How to access health informa tion online Indication:Oropharyngeal dysphagia Start:06-Sep-2016 Instruction Type:Patient Education How to access health informa tion online - Detail Indication:Oropharyngeal dysphagia Start:06-Sep-2016 Instruction Type:Patient Education Patient Instructions Indication:Oropharyngeal dysphagia Start:06-Sep-2016 Instruction Type:Provider Instructions for Treatment How to access health informa tion online Indication:Anxiety Start:08-Dec-2015 Instruction Type:Patient Education How to access health informa tion online - Detail Indication:Anxiety Start:08-Dec-2015 Instruction Type:Patient Education Patient Instructions Indication:Anxiety Start:08-Dec-2015 Instruction Type:Provider Instructions for Treatment Patient Instructions Indication:Anxiety Start:06-Nov-2014 Instruction Type:Provider Instructions for Treatment Patient Instructions Indication:Fatigue Start:28-Aug-2014 Instruction Type:Provider Instructions for Treatment How to access health informa tion online Indication:Fatigue Start:26-Jul-2014 Instruction Type:Patient Education How to access health informa tion online - Detail Indication:Fatigue Start:26-Jul-2014 Instruction Type:Patient Education Patient Instructions Indication:Fatigue Start:26-Jul-2014 Instruction Type:Provider Instructions for Treatment [facility]; [facility] Work Phone: Instructions* Name Dates Details Patient Instructions Indication:Non-smoker Start:17-Nov-2021 Instruction Type:Provider Instructions for Treatment How to Access Health Informa tion Online using Patient Portal and [employer]rd [employer] Apps Indication:Non-smoker Start:17-Nov-2021 Instruction Type:Patient Education DISCONTINUED - BLD CNT, COMP L CBC W/AUTO DIFF WBC ([id number]) Indication:Elevated hemoglobin A1c Start:29-Jul-2021 Instruction Type:Patient Education Patient Instructions Indication:BMI 27.0-27.9,adult Start:29-Jul-2021 Instruction Type:Provider Instructions for Treatment How to Access Health Informa tion Online using Patient Portal and [employer]rd [employer] Apps Indication:BMI 27.0-27.9,adult Start:29-Jul-2021 Instruction Type:Patient Education Patient Instructions Indication:Non-smoker Start:10-Jun-2021 Instruction Type:Provider Instructions for Treatment How to Access Health Informa tion Online using Patient Portal and [employer] Apps Indication:Non-smoker Start:10-Jun-2021 Instruction Type:Patient Education Patient Instructions Indication:COVID Start:01-Jun-2021 Instruction Type:Provider Instructions for Treatment Patient Instructions Indication:BMI 28.0-28.9,adult Start:26-May-2021 Instruction Type:Provider Instructions for Treatment How to Access Health Informa tion Online using Patient Portal and [employer]rd [employer] Apps Indication:BMI 28.0-28.9,adult Start:26-May-2021 Instruction Type:Patient Education Patient Instructions Indication:Non-smoker Start:12-Nov-2020 Instruction Type:Provider Instructions for Treatment How to Access Health Informa tion Online using Patient Portal and [employer] Apps Indication:Non-smoker Start:12-Nov-2020 Instruction Type:Patient Education How to Access Health Informa tion Online using Patient Portal and [employer] Apps Indication:Cough Start:02-Jun-2020 Instruction Type:Patient Education Patient Instructions Indication:Cough Start:02-Jun-2020 Instruction Type:Provider Instructions for Treatment Patient Instructions Indication:Cough Start:26-May-2020 Instruction Type:Provider Instructions for Treatment How to Access Health Informa tion Online using Patient Portal and [employer] Apps Indication:Cough Start:26-May-2020 Instruction Type:Patient Education How to access health informa tion online Indication:Fatigue Start:06-Aug-2019 Instruction Type:Patient Education How to access health informa tion online - Detail Indication:Fatigue Start:06-Aug-2019 Instruction Type:Patient Education Patient Instructions Indication:Fatigue Start:06-Aug-2019 Instruction Type:Provider Instructions for Treatment Patient Instructions Indication:[facility] Start:09-Apr-2019 Instruction Type:Provider Instructions for Treatment How to access health informa tion online Indication:Itching Start:02-Mar-2019 Instruction Type:Patient Education How to access health informa tion online - Detail Indication:Itching Start:02-Mar-2019 Instruction Type:Patient Education Patient Instructions Indication:Itching Start:02-Mar-2019 Instruction Type:Provider Instructions for Treatment How to access health informa tion online Indication:Thyroid Nodule Start:03-Nov-2018 Instruction Type:Patient Education How to access health informa tion online - Detail Indication:Thyroid Nodule Start:03-Nov-2018 Instruction Type:Patient Education Patient Instructions Indication:Thyroid Nodule Start:03-Nov-2018 Instruction Type:Provider Instructions for Treatment How to access health informa tion online Indication:Elevated hemoglobin A1c Start:19-Oct-2017 Instruction Type:Patient Education How to access health informa tion online - Detail Indication:Elevated hemoglobin A1c Start:19-Oct-2017 Instruction Type:Patient Education Patient Instructions Indication:Elevated hemoglobin A1c Start:19-Oct-2017 Instruction Type:Provider Instructions for Treatment How to access health informa tion online Indication:Non-smoker Start:09-Jun-2017 Instruction Type:Patient Education How to access health informa tion online - Detail Indication:Non-smoker Start:09-Jun-2017 Instruction Type:Patient Education Patient Instructions Indication:Sore throat Start:09-Jun-2017 Instruction Type:Provider Instructions for Treatment How to access health informa tion online Indication:BMI 28.0-28.9,adult Start:23-May-2017 Instruction Type:Patient Education How to access health informa tion online - Detail Indication:BMI 28.0-28.9,adult Start:23-May-2017 Instruction Type:Patient Education Patient Instructions Indication:BMI 28.0-28.9,adult Start:23-May-2017 Instruction Type:Provider Instructions for Treatment How to access health informa tion online Indication:[facility] Start:09-Nov-2016 Instruction Type:Patient Education How to access health informa tion online - Detail Indication:[facility] Start:09-Nov-2016 Instruction Type:Patient Education Patient Instructions Indication:[facility] Start:09-Nov-2016 Instruction Type:Provider Instructions for Treatment How to access health informa tion online Indication:Oropharyngeal dysphagia Start:06-Sep-2016 Instruction Type:Patient Education How to access health informa tion online - Detail Indication:Oropharyngeal dysphagia Start:06-Sep-2016 Instruction Type:Patient Education Patient Instructions Indication:Oropharyngeal dysphagia Start:06-Sep-2016 Instruction Type:Provider Instructions for Treatment How to access health informa tion online Indication:Anxiety Start:08-Dec-2015 Instruction Type:Patient Education How to access health informa tion online - Detail Indication:Anxiety Start:08-Dec-2015 Instruction Type:Patient Education Patient Instructions Indication:Anxiety Start:08-Dec-2015 Instruction Type:Provider Instructions for Treatment Patient Instructions Indication:Anxiety Start:06-Nov-2014 Instruction Type:Provider Instructions for Treatment Patient Instructions Indication:Fatigue Start:28-Aug-2014 Instruction Type:Provider Instructions for Treatment How to access health informa tion online Indication:Fatigue Start:26-Jul-2014 Instruction Type:Patient Education How to access health informa tion online - Detail Indication:Fatigue Start:26-Jul-2014 Instruction Type:Patient Education Patient Instructions Indication:Fatigue Start:26-Jul-2014 Instruction Type:Provider Instructions for Treatment [facility]; [facility] Work Phone: Instructions* Name Dates Details Patient Instructions Indication:Non-smoker Start:17-Nov-2021 Instruction Type:Provider Instructions for Treatment How to Access Health Informa tion Online using Patient Portal and [employer] Apps Indication:Non-smoker Start:17-Nov-2021 Instruction Type:Patient Education DISCONTINUED - BLD CNT, COMP L CBC W/AUTO DIFF WBC ([id number]) Start:29-Jul-2021 Instruction Type:Patient Education Patient Instructions Indication:BMI 27.0-27.9,adult Start:29-Jul-2021 Instruction Type:Provider Instructions for Treatment How to Access Health Informa tion Online using Patient Portal and [employer] Apps Indication:BMI 27.0-27.9,adult Start:29-Jul-2021 Instruction Type:Patient Education Patient Instructions Indication:Non-smoker Start:10-Jun-2021 Instruction Type:Provider Instructions for Treatment How to Access Health Informa tion Online using Patient Portal and [employer] Apps Indication:Non-smoker Start:10-Jun-2021 Instruction Type:Patient Education Patient Instructions Indication:COVID Start:01-Jun-2021 Instruction Type:Provider Instructions for Treatment Patient Instructions Indication:BMI 28.0-28.9,adult Start:26-May-2021 Instruction Type:Provider Instructions for Treatment How to Access Health Informa tion Online using Patient Portal and [employer] Apps Indication:BMI 28.0-28.9,adult Start:26-May-2021 Instruction Type:Patient Education Patient Instructions Indication:Non-smoker Start:12-Nov-2020 Instruction Type:Provider Instructions for Treatment How to Access Health Informa tion Online using Patient Portal and [employer] Apps Indication:Non-smoker Start:12-Nov-2020 Instruction Type:Patient Education How to Access Health Informa tion Online using Patient Portal and [employer] Apps Indication:Cough Start:02-Jun-2020 Instruction Type:Patient Education Patient Instructions Indication:Cough Start:02-Jun-2020 Instruction Type:Provider Instructions for Treatment Patient Instructions Indication:Cough Start:26-May-2020 Instruction Type:Provider Instructions for Treatment How to Access Health Informa tion Online using Patient Portal and [employer] Apps Indication:Cough Start:26-May-2020 Instruction Type:Patient Education How to access health informa tion online Indication:Fatigue Start:06-Aug-2019 Instruction Type:Patient Education How to access health informa tion online - Detail Indication:Fatigue Start:06-Aug-2019 Instruction Type:Patient Education Patient Instructions Indication:Fatigue Start:06-Aug-2019 Instruction Type:Provider Instructions for Treatment Patient Instructions Indication:[facility] Start:09-Apr-2019 Instruction Type:Provider Instructions for Treatment How to access health informa tion online Indication:Itching Start:02-Mar-2019 Instruction Type:Patient Education How to access health informa tion online - Detail Indication:Itching Start:02-Mar-2019 Instruction Type:Patient Education Patient Instructions Indication:Itching Start:02-Mar-2019 Instruction Type:Provider Instructions for Treatment How to access health informa tion online Indication:Thyroid Nodule Start:03-Nov-2018 Instruction Type:Patient Education How to access health informa tion online - Detail Indication:Thyroid Nodule Start:03-Nov-2018 Instruction Type:Patient Education Patient Instructions Indication:Thyroid Nodule Start:03-Nov-2018 Instruction Type:Provider Instructions for Treatment How to access health informa tion online Start:19-Oct-2017 Instruction Type:Patient Education How to access health informa tion online - Detail Start:19-Oct-2017 Instruction Type:Patient Education Patient Instructions Start:19-Oct-2017 Instruction Type:Provider Instructions for Treatment How to access health informa tion online Indication:Non-smoker Start:09-Jun-2017 Instruction Type:Patient Education How to access health informa tion online - Detail Indication:Non-smoker Start:09-Jun-2017 Instruction Type:Patient Education Patient Instructions Indication:Sore throat Start:09-Jun-2017 Instruction Type:Provider Instructions for Treatment How to access health informa tion online Indication:BMI 28.0-28.9,adult Start:23-May-2017 Instruction Type:Patient Education How to access health informa tion online - Detail Indication:BMI 28.0-28.9,adult Start:23-May-2017 Instruction Type:Patient Education Patient Instructions Indication:BMI 28.0-28.9,adult Start:23-May-2017 Instruction Type:Provider Instructions for Treatment How to access health informa tion online Indication:[facility] Start:09-Nov-2016 Instruction Type:Patient Education How to access health informa tion online - Detail Indication:[facility] Start:09-Nov-2016 Instruction Type:Patient Education Patient Instructions Indication:[facility] Start:09-Nov-2016 Instruction Type:Provider Instructions for Treatment How to access health informa tion online Indication:Oropharyngeal dysphagia Start:06-Sep-2016 Instruction Type:Patient Education How to access health informa tion online - Detail Indication:Oropharyngeal dysphagia Start:06-Sep-2016 Instruction Type:Patient Education Patient Instructions Indication:Oropharyngeal dysphagia Start:06-Sep-2016 Instruction Type:Provider Instructions for Treatment How to access health informa tion online Indication:Anxiety Start:08-Dec-2015 Instruction Type:Patient Education How to access health informa tion online - Detail Indication:Anxiety Start:08-Dec-2015 Instruction Type:Patient Education Patient Instructions Indication:Anxiety Start:08-Dec-2015 Instruction Type:Provider Instructions for Treatment Patient Instructions Indication:Anxiety Start:06-Nov-2014 Instruction Type:Provider Instructions for Treatment Patient Instructions Indication:Fatigue Start:28-Aug-2014 Instruction Type:Provider Instructions for Treatment How to access health informa tion online Indication:Fatigue Start:26-Jul-2014 Instruction Type:Patient Education How to access health informa tion online - Detail Indication:Fatigue Start:26-Jul-2014 Instruction Type:Patient Education Patient Instructions Indication:Fatigue Start:26-Jul-2014 Instruction Type:Provider Instructions for Treatment [facility]; [facility] Work Phone: Instructions* Name Dates Details Patient Instructions Indication:Non-smoker Start:17-Nov-2021 Instruction Type:Provider Instructions for Treatment How to Access Health Informa tion Online using Patient Portal and [employer] Apps Indication:Non-smoker Start:17-Nov-2021 Instruction Type:Patient Education DISCONTINUED - BLD CNT, COMP L CBC W/AUTO DIFF WBC ([id number]) Start:29-Jul-2021 Instruction Type:Patient Education Patient Instructions Indication:BMI 27.0-27.9,adult Start:29-Jul-2021 Instruction Type:Provider Instructions for Treatment How to Access Health Informa tion Online using Patient Portal and [employer] Apps Indication:BMI 27.0-27.9,adult Start:29-Jul-2021 Instruction Type:Patient Education Patient Instructions Indication:Non-smoker Start:10-Jun-2021 Instruction Type:Provider Instructions for Treatment How to Access Health Informa tion Online using Patient Portal and [employer] Apps Indication:Non-smoker Start:10-Jun-2021 Instruction Type:Patient Education Patient Instructions Indication:COVID Start:01-Jun-2021 Instruction Type:Provider Instructions for Treatment Patient Instructions Indication:BMI 28.0-28.9,adult Start:26-May-2021 Instruction Type:Provider Instructions for Treatment How to Access Health Informa tion Online using Patient Portal and [employer] Apps Indication:BMI 28.0-28.9,adult Start:26-May-2021 Instruction Type:Patient Education Patient Instructions Indication:Non-smoker Start:12-Nov-2020 Instruction Type:Provider Instructions for Treatment How to Access Health Informa tion Online using Patient Portal and [employer] Apps Indication:Non-smoker Start:12-Nov-2020 Instruction Type:Patient Education How to Access Health Informa tion Online using Patient Portal and [employer] Apps Indication:Cough Start:02-Jun-2020 Instruction Type:Patient Education Patient Instructions Indication:Cough Start:02-Jun-2020 Instruction Type:Provider Instructions for Treatment Patient Instructions Indication:Cough Start:26-May-2020 Instruction Type:Provider Instructions for Treatment How to Access Health Informa tion Online using Patient Portal and [employer] Apps Indication:Cough Start:26-May-2020 Instruction Type:Patient Education How to access health informa tion online Indication:Fatigue Start:06-Aug-2019 Instruction Type:Patient Education How to access health informa tion online - Detail Indication:Fatigue Start:06-Aug-2019 Instruction Type:Patient Education Patient Instructions Indication:Fatigue Start:06-Aug-2019 Instruction Type:Provider Instructions for Treatment Patient Instructions Indication:[facility] Start:09-Apr-2019 Instruction Type:Provider Instructions for Treatment How to access health informa tion online Indication:Itching Start:02-Mar-2019 Instruction Type:Patient Education How to access health informa tion online - Detail Indication:Itching Start:02-Mar-2019 Instruction Type:Patient Education Patient Instructions Indication:Itching Start:02-Mar-2019 Instruction Type:Provider Instructions for Treatment How to access health informa tion online Indication:Thyroid Nodule Start:03-Nov-2018 Instruction Type:Patient Education How to access health informa tion online - Detail Indication:Thyroid Nodule Start:03-Nov-2018 Instruction Type:Patient Education Patient Instructions Indication:Thyroid Nodule Start:03-Nov-2018 Instruction Type:Provider Instructions for Treatment How to access health informa tion online Start:19-Oct-2017 Instruction Type:Patient Education How to access health informa tion online - Detail Start:19-Oct-2017 Instruction Type:Patient Education Patient Instructions Start:19-Oct-2017 Instruction Type:Provider Instructions for Treatment How to access health informa tion online Indication:Non-smoker Start:09-Jun-2017 Instruction Type:Patient Education How to access health informa tion online - Detail Indication:Non-smoker Start:09-Jun-2017 Instruction Type:Patient Education Patient Instructions Indication:Sore throat Start:09-Jun-2017 Instruction Type:Provider Instructions for Treatment How to access health informa tion online Indication:BMI 28.0-28.9,adult Start:23-May-2017 Instruction Type:Patient Education How to access health informa tion online - Detail Indication:BMI 28.0-28.9,adult Start:23-May-2017 Instruction Type:Patient Education Patient Instructions Indication:BMI 28.0-28.9,adult Start:23-May-2017 Instruction Type:Provider Instructions for Treatment How to access health informa tion online Indication:[facility] Start:09-Nov-2016 Instruction Type:Patient Education How to access health informa tion online - Detail Indication:[facility] Start:09-Nov-2016 Instruction Type:Patient Education Patient Instructions Indication:[facility] Start:09-Nov-2016 Instruction Type:Provider Instructions for Treatment How to access health informa tion online Indication:Oropharyngeal dysphagia Start:06-Sep-2016 Instruction Type:Patient Education How to access health informa tion online - Detail Indication:Oropharyngeal dysphagia Start:06-Sep-2016 Instruction Type:Patient Education Patient Instructions Indication:Oropharyngeal dysphagia Start:06-Sep-2016 Instruction Type:Provider Instructions for Treatment How to access health informa tion online Indication:Anxiety Start:08-Dec-2015 Instruction Type:Patient Education How to access health informa tion online - Detail Indication:Anxiety Start:08-Dec-2015 Instruction Type:Patient Education Patient Instructions Indication:Anxiety Start:08-Dec-2015 Instruction Type:Provider Instructions for Treatment Patient Instructions Indication:Anxiety Start:06-Nov-2014 Instruction Type:Provider Instructions for Treatment Patient Instructions Indication:Fatigue Start:28-Aug-2014 Instruction Type:Provider Instructions for Treatment How to access health informa tion online Indication:Fatigue Start:26-Jul-2014 Instruction Type:Patient Education How to access health informa tion online - Detail Indication:Fatigue Start:26-Jul-2014 Instruction Type:Patient Education Patient Instructions Indication:Fatigue Start:26-Jul-2014 Instruction Type:Provider Instructions for Treatment [facility]; [facility] Work Phone: Instructions* Name Dates Details Patient Instructions Indication:Non-smoker Start:17-Nov-2021 Instruction Type:Provider Instructions for Treatment How to Access Health Informa tion Online using Patient Portal and [employer] Apps Indication:Non-smoker Start:17-Nov-2021 Instruction Type:Patient Education DISCONTINUED - BLD CNT, COMP L CBC W/AUTO DIFF WBC ([id number]) Indication:Elevated hemoglobin A1c Start:29-Jul-2021 Instruction Type:Patient Education Patient Instructions Indication:BMI 27.0-27.9,adult Start:29-Jul-2021 Instruction Type:Provider Instructions for Treatment How to Access Health Informa tion Online using Patient Portal and [employer] Apps Indication:BMI 27.0-27.9,adult Start:29-Jul-2021 Instruction Type:Patient Education Patient Instructions Indication:Non-smoker Start:10-Jun-2021 Instruction Type:Provider Instructions for Treatment How to Access Health Informa tion Online using Patient Portal and [employer] Apps Indication:Non-smoker Start:10-Jun-2021 Instruction Type:Patient Education Patient Instructions Indication:COVID Start:01-Jun-2021 Instruction Type:Provider Instructions for Treatment Patient Instructions Indication:BMI 28.0-28.9,adult Start:26-May-2021 Instruction Type:Provider Instructions for Treatment How to Access Health Informa tion Online using Patient Portal and [employer] Apps Indication:BMI 28.0-28.9,adult Start:26-May-2021 Instruction Type:Patient Education Patient Instructions Indication:Non-smoker Start:12-Nov-2020 Instruction Type:Provider Instructions for Treatment How to Access Health Informa tion Online using Patient Portal and [employer] Apps Indication:Non-smoker Start:12-Nov-2020 Instruction Type:Patient Education How to Access Health Informa tion Online using Patient Portal and [employer] Apps Indication:Cough Start:02-Jun-2020 Instruction Type:Patient Education Patient Instructions Indication:Cough Start:02-Jun-2020 Instruction Type:Provider Instructions for Treatment Patient Instructions Indication:Cough Start:26-May-2020 Instruction Type:Provider Instructions for Treatment How to Access Health Informa tion Online using Patient Portal and [employer] Apps Indication:Cough Start:26-May-2020 Instruction Type:Patient Education How to access health informa tion online Indication:Fatigue Start:06-Aug-2019 Instruction Type:Patient Education How to access health informa tion online - Detail Indication:Fatigue Start:06-Aug-2019 Instruction Type:Patient Education Patient Instructions Indication:Fatigue Start:06-Aug-2019 Instruction Type:Provider Instructions for Treatment Patient Instructions Indication:[facility] Start:09-Apr-2019 Instruction Type:Provider Instructions for Treatment How to access health informa tion online Indication:Itching Start:02-Mar-2019 Instruction Type:Patient Education How to access health informa tion online - Detail Indication:Itching Start:02-Mar-2019 Instruction Type:Patient Education Patient Instructions Indication:Itching Start:02-Mar-2019 Instruction Type:Provider Instructions for Treatment How to access health informa tion online Indication:Thyroid Nodule Start:03-Nov-2018 Instruction Type:Patient Education How to access health informa tion online - Detail Indication:Thyroid Nodule Start:03-Nov-2018 Instruction Type:Patient Education Patient Instructions Indication:Thyroid Nodule Start:03-Nov-2018 Instruction Type:Provider Instructions for Treatment How to access health informa tion online Indication:Elevated hemoglobin A1c Start:19-Oct-2017 Instruction Type:Patient Education How to access health informa tion online - Detail Indication:Elevated hemoglobin A1c Start:19-Oct-2017 Instruction Type:Patient Education Patient Instructions Indication:Elevated hemoglobin A1c Start:19-Oct-2017 Instruction Type:Provider Instructions for Treatment How to access health informa tion online Indication:Non-smoker Start:09-Jun-2017 Instruction Type:Patient Education How to access health informa tion online - Detail Indication:Non-smoker Start:09-Jun-2017 Instruction Type:Patient Education Patient Instructions Indication:Sore throat Start:09-Jun-2017 Instruction Type:Provider Instructions for Treatment How to access health informa tion online Indication:BMI 28.0-28.9,adult Start:23-May-2017 Instruction Type:Patient Education How to access health informa tion online - Detail Indication:BMI 28.0-28.9,adult Start:23-May-2017 Instruction Type:Patient Education Patient Instructions Indication:BMI 28.0-28.9,adult Start:23-May-2017 Instruction Type:Provider Instructions for Treatment How to access health informa tion online Indication:[facility] Start:09-Nov-2016 Instruction Type:Patient Education How to access health informa tion online - Detail Indication:[facility] Start:09-Nov-2016 Instruction Type:Patient Education Patient Instructions Indication:[facility] Start:09-Nov-2016 Instruction Type:Provider Instructions for Treatment How to access health informa tion online Indication:Oropharyngeal dysphagia Start:06-Sep-2016 Instruction Type:Patient Education How to access health informa tion online - Detail Indication:Oropharyngeal dysphagia Start:06-Sep-2016 Instruction Type:Patient Education Patient Instructions Indication:Oropharyngeal dysphagia Start:06-Sep-2016 Instruction Type:Provider Instructions for Treatment How to access health informa tion online Indication:Anxiety Start:08-Dec-2015 Instruction Type:Patient Education How to access health informa tion online - Detail Indication:Anxiety Start:08-Dec-2015 Instruction Type:Patient Education Patient Instructions Indication:Anxiety Start:08-Dec-2015 Instruction Type:Provider Instructions for Treatment Patient Instructions Indication:Anxiety Start:06-Nov-2014 Instruction Type:Provider Instructions for Treatment Patient Instructions Indication:Fatigue Start:28-Aug-2014 Instruction Type:Provider Instructions for Treatment How to access health informa tion online Indication:Fatigue Start:26-Jul-2014 Instruction Type:Patient Education How to access health informa tion online - Detail Indication:Fatigue Start:26-Jul-2014 Instruction Type:Patient Education Patient Instructions Indication:Fatigue Start:26-Jul-2014 Instruction Type:Provider Instructions for Treatment [facility]; [facility] Work Phone: Instructions* Name Dates Details Patient Instructions Indication:Will's thyroiditis Start:16-Feb-2023 Instruction Type:Provider Instructions for Treatment How to Access Health Informa tion Online using Patient Portal and [employer] Apps Indication:Will's thyroiditis Start:16-Feb-2023 Instruction Type:Patient Education Patient Instructions Indication:Non-smoker Start:17-Nov-2021 Instruction Type:Provider Instructions for Treatment How to Access Health Informa tion Online using Patient Portal and [employer] Indication:Non-smoker Start:17-Nov-2021 Instruction Type:Patient Education DISCONTINUED - BLD CNT, COMP L CBC W/AUTO DIFF WBC ([id number]) Indication:Elevated hemoglobin A1c Start:29-Jul-2021 Instruction Type:Patient Education Patient Instructions Indication:BMI 27.0-27.9,adult Start:29-Jul-2021 Instruction Type:Provider Instructions for Treatment How to Access Health Informa tion Online using Patient Portal and [employer] Indication:BMI 27.0-27.9,adult Start:29-Jul-2021 Instruction Type:Patient Education Patient Instructions Indication:Non-smoker Start:10-Jun-2021 Instruction Type:Provider Instructions for Treatment How to Access Health Informa tion Online using Patient Portal and [employer] Indication:Non-smoker Start:10-Jun-2021 Instruction Type:Patient Education Patient Instructions Indication:COVID Start:01-Jun-2021 Instruction Type:Provider Instructions for Treatment Patient Instructions Indication:BMI 28.0-28.9,adult Start:26-May-2021 Instruction Type:Provider Instructions for Treatment How to Access Health Informa tion Online using Patient Portal and [employer] Indication:BMI 28.0-28.9,adult Start:26-May-2021 Instruction Type:Patient Education Patient Instructions Indication:Non-smoker Start:12-Nov-2020 Instruction Type:Provider Instructions for Treatment How to Access Health Informa tion Online using Patient Portal and [employer] Indication:Non-smoker Start:12-Nov-2020 Instruction Type:Patient Education How to Access Health Informa tion Online using Patient Portal and [employer] Indication:Cough Start:02-Jun-2020 Instruction Type:Patient Education Patient Instructions Indication:Cough Start:02-Jun-2020 Instruction Type:Provider Instructions for Treatment Patient Instructions Indication:Cough Start:26-May-2020 Instruction Type:Provider Instructions for Treatment How to Access Health Informa tion Online using Patient Portal and [employer] Indication:Cough Start:26-May-2020 Instruction Type:Patient Education How to access health informa tion online Indication:Fatigue Start:06-Aug-2019 Instruction Type:Patient Education How to access health informa tion online - Detail Indication:Fatigue Start:06-Aug-2019 Instruction Type:Patient Education Patient Instructions Indication:Fatigue Start:06-Aug-2019 Instruction Type:Provider Instructions for Treatment Patient Instructions Indication:[facility] Start:09-Apr-2019 Instruction Type:Provider Instructions for Treatment How to access health informa tion online Indication:Itching Start:02-Mar-2019 Instruction Type:Patient Education How to access health informa tion online - Detail Indication:Itching Start:02-Mar-2019 Instruction Type:Patient Education Patient Instructions Indication:Itching Start:02-Mar-2019 Instruction Type:Provider Instructions for Treatment How to access health informa tion online Indication:Thyroid Nodule Start:03-Nov-2018 Instruction Type:Patient Education How to access health informa tion online - Detail Indication:Thyroid Nodule Start:03-Nov-2018 Instruction Type:Patient Education Patient Instructions Indication:Thyroid Nodule Start:03-Nov-2018 Instruction Type:Provider Instructions for Treatment How to access health informa tion online Indication:Elevated hemoglobin A1c Start:19-Oct-2017 Instruction Type:Patient Education How to access health informa tion online - Detail Indication:Elevated hemoglobin A1c Start:19-Oct-2017 Instruction Type:Patient Education Patient Instructions Indication:Elevated hemoglobin A1c Start:19-Oct-2017 Instruction Type:Provider Instructions for Treatment How to access health informa tion online Indication:Non-smoker Start:09-Jun-2017 Instruction Type:Patient Education How to access health informa tion online - Detail Indication:Non-smoker Start:09-Jun-2017 Instruction Type:Patient Education Patient Instructions Indication:Sore throat Start:09-Jun-2017 Instruction Type:Provider Instructions for Treatment How to access health informa tion online Indication:BMI 28.0-28.9,adult Start:23-May-2017 Instruction Type:Patient Education How to access health informa tion online - Detail Indication:BMI 28.0-28.9,adult Start:23-May-2017 Instruction Type:Patient Education Patient Instructions Indication:BMI 28.0-28.9,adult Start:23-May-2017 Instruction Type:Provider Instructions for Treatment How to access health informa tion online Indication:[facility] Start:09-Nov-2016 Instruction Type:Patient Education How to access health informa tion online - Detail Indication:[facility] Start:09-Nov-2016 Instruction Type:Patient Education Patient Instructions Indication:[facility] Start:09-Nov-2016 Instruction Type:Provider Instructions for Treatment How to access health informa tion online Indication:Oropharyngeal dysphagia Start:06-Sep-2016 Instruction Type:Patient Education How to access health informa tion online - Detail Indication:Oropharyngeal dysphagia Start:06-Sep-2016 Instruction Type:Patient Education Patient Instructions Indication:Oropharyngeal dysphagia Start:06-Sep-2016 Instruction Type:Provider Instructions for Treatment How to access health informa tion online Indication:Anxiety Start:08-Dec-2015 Instruction Type:Patient Education How to access health informa tion online - Detail Indication:Anxiety Start:08-Dec-2015 Instruction Type:Patient Education Patient Instructions Indication:Anxiety Start:08-Dec-2015 Instruction Type:Provider Instructions for Treatment Patient Instructions Indication:Anxiety Start:06-Nov-2014 Instruction Type:Provider Instructions for Treatment Patient Instructions Indication:Fatigue Start:28-Aug-2014 Instruction Type:Provider Instructions for Treatment How to access health informa tion online Indication:Fatigue Start:26-Jul-2014 Instruction Type:Patient Education How to access health informa tion online - Detail Indication:Fatigue Start:26-Jul-2014 Instruction Type:Patient Education Patient Instructions Indication:Fatigue Start:26-Jul-2014 Instruction Type:Provider Instructions for Treatment [facility] Work Phone: Instructions* Name Dates Details Patient Instructions Indication:Will's thyroiditis Start:16-Feb-2023 Instruction Type:Provider Instructions for Treatment How to Access Health Informa tion Online using Patient Portal and [employer] Apps Indication:Will's thyroiditis Start:16-Feb-2023 Instruction Type:Patient Education Patient Instructions Indication:Non-smoker Start:17-Nov-2021 Instruction Type:Provider Instructions for Treatment How to Access Health Informa tion Online using Patient Portal and [employer] Indication:Non-smoker Start:17-Nov-2021 Instruction Type:Patient Education DISCONTINUED - BLD CNT, COMP L CBC W/AUTO DIFF WBC ([id number]) Indication:Elevated hemoglobin A1c Start:29-Jul-2021 Instruction Type:Patient Education Patient Instructions Indication:BMI 27.0-27.9,adult Start:29-Jul-2021 Instruction Type:Provider Instructions for Treatment How to Access Health Informa tion Online using Patient Portal and [employer] Indication:BMI 27.0-27.9,adult Start:29-Jul-2021 Instruction Type:Patient Education Patient Instructions Indication:Non-smoker Start:10-Jun-2021 Instruction Type:Provider Instructions for Treatment How to Access Health Informa tion Online using Patient Portal and [employer] Indication:Non-smoker Start:10-Jun-2021 Instruction Type:Patient Education Patient Instructions Indication:COVID Start:01-Jun-2021 Instruction Type:Provider Instructions for Treatment Patient Instructions Indication:BMI 28.0-28.9,adult Start:26-May-2021 Instruction Type:Provider Instructions for Treatment How to Access Health Informa tion Online using Patient Portal and [employer] Indication:BMI 28.0-28.9,adult Start:26-May-2021 Instruction Type:Patient Education Patient Instructions Indication:Non-smoker Start:12-Nov-2020 Instruction Type:Provider Instructions for Treatment How to Access Health Informa tion Online using Patient Portal and [employer] Indication:Non-smoker Start:12-Nov-2020 Instruction Type:Patient Education How to Access Health Informa tion Online using Patient Portal and [employer] Indication:Cough Start:02-Jun-2020 Instruction Type:Patient Education Patient Instructions Indication:Cough Start:02-Jun-2020 Instruction Type:Provider Instructions for Treatment Patient Instructions Indication:Cough Start:26-May-2020 Instruction Type:Provider Instructions for Treatment How to Access Health Informa tion Online using Patient Portal and [employer] Indication:Cough Start:26-May-2020 Instruction Type:Patient Education How to access health informa tion online Indication:Fatigue Start:06-Aug-2019 Instruction Type:Patient Education How to access health informa tion online - Detail Indication:Fatigue Start:06-Aug-2019 Instruction Type:Patient Education Patient Instructions Indication:Fatigue Start:06-Aug-2019 Instruction Type:Provider Instructions for Treatment Patient Instructions Indication:[facility] Start:09-Apr-2019 Instruction Type:Provider Instructions for Treatment How to access health informa tion online Indication:Itching Start:02-Mar-2019 Instruction Type:Patient Education How to access health informa tion online - Detail Indication:Itching Start:02-Mar-2019 Instruction Type:Patient Education Patient Instructions Indication:Itching Start:02-Mar-2019 Instruction Type:Provider Instructions for Treatment How to access health informa tion online Indication:Thyroid Nodule Start:03-Nov-2018 Instruction Type:Patient Education How to access health informa tion online - Detail Indication:Thyroid Nodule Start:03-Nov-2018 Instruction Type:Patient Education Patient Instructions Indication:Thyroid Nodule Start:03-Nov-2018 Instruction Type:Provider Instructions for Treatment How to access health informa tion online Indication:Elevated hemoglobin A1c Start:19-Oct-2017 Instruction Type:Patient Education How to access health informa tion online - Detail Indication:Elevated hemoglobin A1c Start:19-Oct-2017 Instruction Type:Patient Education Patient Instructions Indication:Elevated hemoglobin A1c Start:19-Oct-2017 Instruction Type:Provider Instructions for Treatment How to access health informa tion online Indication:Non-smoker Start:09-Jun-2017 Instruction Type:Patient Education How to access health informa tion online - Detail Indication:Non-smoker Start:09-Jun-2017 Instruction Type:Patient Education Patient Instructions Indication:Sore throat Start:09-Jun-2017 Instruction Type:Provider Instructions for Treatment How to access health informa tion online Indication:BMI 28.0-28.9,adult Start:23-May-2017 Instruction Type:Patient Education How to access health informa tion online - Detail Indication:BMI 28.0-28.9,adult Start:23-May-2017 Instruction Type:Patient Education Patient Instructions Indication:BMI 28.0-28.9,adult Start:23-May-2017 Instruction Type:Provider Instructions for Treatment How to access health informa tion online Indication:[facility] Start:09-Nov-2016 Instruction Type:Patient Education How to access health informa tion online - Detail Indication:[facility] Start:09-Nov-2016 Instruction Type:Patient Education Patient Instructions Indication:[facility] Start:09-Nov-2016 Instruction Type:Provider Instructions for Treatment How to access health informa tion online Indication:Oropharyngeal dysphagia Start:06-Sep-2016 Instruction Type:Patient Education How to access health informa tion online - Detail Indication:Oropharyngeal dysphagia Start:06-Sep-2016 Instruction Type:Patient Education Patient Instructions Indication:Oropharyngeal dysphagia Start:06-Sep-2016 Instruction Type:Provider Instructions for Treatment How to access health informa tion online Indication:Anxiety Start:08-Dec-2015 Instruction Type:Patient Education How to access health informa tion online - Detail Indication:Anxiety Start:08-Dec-2015 Instruction Type:Patient Education Patient Instructions Indication:Anxiety Start:08-Dec-2015 Instruction Type:Provider Instructions for Treatment Patient Instructions Indication:Anxiety Start:06-Nov-2014 Instruction Type:Provider Instructions for Treatment Patient Instructions Indication:Fatigue Start:28-Aug-2014 Instruction Type:Provider Instructions for Treatment How to access health informa tion online Indication:Fatigue Start:26-Jul-2014 Instruction Type:Patient Education How to access health informa tion online - Detail Indication:Fatigue Start:26-Jul-2014 Instruction Type:Patient Education Patient Instructions Indication:Fatigue Start:26-Jul-2014 Instruction Type:Provider Instructions for Treatment [facility]; [facility] Work Phone: Instructions* Name Dates Details Patient Instructions Indication:Will's thyroiditis Start:16-Feb-2023 Instruction Type:Provider Instructions for Treatment How to Access Health Informa tion Online using Patient Portal and [employer] Apps Indication:Will's thyroiditis Start:16-Feb-2023 Instruction Type:Patient Education Patient Instructions Indication:Non-smoker Start:17-Nov-2021 Instruction Type:Provider Instructions for Treatment How to Access Health Informa tion Online using Patient Portal and [employer] Apps Indication:Non-smoker Start:17-Nov-2021 Instruction Type:Patient Education DISCONTINUED - BLD CNT, COMP L CBC W/AUTO DIFF WBC ([id number]) Indication:Elevated hemoglobin A1c Start:29-Jul-2021 Instruction Type:Patient Education Patient Instructions Indication:BMI 27.0-27.9,adult Start:29-Jul-2021 Instruction Type:Provider Instructions for Treatment How to Access Health Informa tion Online using Patient Portal and [employer] Indication:BMI 27.0-27.9,adult Start:29-Jul-2021 Instruction Type:Patient Education Patient Instructions Indication:Non-smoker Start:10-Jun-2021 Instruction Type:Provider Instructions for Treatment How to Access Health Informa tion Online using Patient Portal and [employer] Indication:Non-smoker Start:10-Jun-2021 Instruction Type:Patient Education Patient Instructions Indication:COVID Start:01-Jun-2021 Instruction Type:Provider Instructions for Treatment Patient Instructions Indication:BMI 28.0-28.9,adult Start:26-May-2021 Instruction Type:Provider Instructions for Treatment How to Access Health Informa tion Online using Patient Portal and [employer] Indication:BMI 28.0-28.9,adult Start:26-May-2021 Instruction Type:Patient Education Patient Instructions Indication:Non-smoker Start:12-Nov-2020 Instruction Type:Provider Instructions for Treatment How to Access Health Informa tion Online using Patient Portal and [employer] Indication:Non-smoker Start:12-Nov-2020 Instruction Type:Patient Education How to Access Health Informa tion Online using Patient Portal and [employer] Indication:Cough Start:02-Jun-2020 Instruction Type:Patient Education Patient Instructions Indication:Cough Start:02-Jun-2020 Instruction Type:Provider Instructions for Treatment Patient Instructions Indication:Cough Start:26-May-2020 Instruction Type:Provider Instructions for Treatment How to Access Health Informa tion Online using Patient Portal and [employer] Indication:Cough Start:26-May-2020 Instruction Type:Patient Education How to access health informa tion online Indication:Fatigue Start:06-Aug-2019 Instruction Type:Patient Education How to access health informa tion online - Detail Indication:Fatigue Start:06-Aug-2019 Instruction Type:Patient Education Patient Instructions Indication:Fatigue Start:06-Aug-2019 Instruction Type:Provider Instructions for Treatment Patient Instructions Indication:[facility] Start:09-Apr-2019 Instruction Type:Provider Instructions for Treatment How to access health informa tion online Indication:Itching Start:02-Mar-2019 Instruction Type:Patient Education How to access health informa tion online - Detail Indication:Itching Start:02-Mar-2019 Instruction Type:Patient Education Patient Instructions Indication:Itching Start:02-Mar-2019 Instruction Type:Provider Instructions for Treatment How to access health informa tion online Indication:Thyroid Nodule Start:03-Nov-2018 Instruction Type:Patient Education How to access health informa tion online - Detail Indication:Thyroid Nodule Start:03-Nov-2018 Instruction Type:Patient Education Patient Instructions Indication:Thyroid Nodule Start:03-Nov-2018 Instruction Type:Provider Instructions for Treatment How to access health informa tion online Indication:Elevated hemoglobin A1c Start:19-Oct-2017 Instruction Type:Patient Education How to access health informa tion online - Detail Indication:Elevated hemoglobin A1c Start:19-Oct-2017 Instruction Type:Patient Education Patient Instructions Indication:Elevated hemoglobin A1c Start:19-Oct-2017 Instruction Type:Provider Instructions for Treatment How to access health informa tion online Indication:Non-smoker Start:09-Jun-2017 Instruction Type:Patient Education How to access health informa tion online - Detail Indication:Non-smoker Start:09-Jun-2017 Instruction Type:Patient Education Patient Instructions Indication:Sore throat Start:09-Jun-2017 Instruction Type:Provider Instructions for Treatment How to access health informa tion online Indication:BMI 28.0-28.9,adult Start:23-May-2017 Instruction Type:Patient Education How to access health informa tion online - Detail Indication:BMI 28.0-28.9,adult Start:23-May-2017 Instruction Type:Patient Education Patient Instructions Indication:BMI 28.0-28.9,adult Start:23-May-2017 Instruction Type:Provider Instructions for Treatment How to access health informa tion online Indication:[facility] Start:09-Nov-2016 Instruction Type:Patient Education How to access health informa tion online - Detail Indication:[facility] Start:09-Nov-2016 Instruction Type:Patient Education Patient Instructions Indication:[facility] Start:09-Nov-2016 Instruction Type:Provider Instructions for Treatment How to access health informa tion online Indication:Oropharyngeal dysphagia Start:06-Sep-2016 Instruction Type:Patient Education How to access health informa tion online - Detail Indication:Oropharyngeal dysphagia Start:06-Sep-2016 Instruction Type:Patient Education Patient Instructions Indication:Oropharyngeal dysphagia Start:06-Sep-2016 Instruction Type:Provider Instructions for Treatment How to access health informa tion online Indication:Anxiety Start:08-Dec-2015 Instruction Type:Patient Education How to access health informa tion online - Detail Indication:Anxiety Start:08-Dec-2015 Instruction Type:Patient Education Patient Instructions Indication:Anxiety Start:08-Dec-2015 Instruction Type:Provider Instructions for Treatment Patient Instructions Indication:Anxiety Start:06-Nov-2014 Instruction Type:Provider Instructions for Treatment Patient Instructions Indication:Fatigue Start:28-Aug-2014 Instruction Type:Provider Instructions for Treatment How to access health informa tion online Indication:Fatigue Start:26-Jul-2014 Instruction Type:Patient Education How to access health informa tion online - Detail Indication:Fatigue Start:26-Jul-2014 Instruction Type:Patient Education Patient Instructions Indication:Fatigue Start:26-Jul-2014 Instruction Type:Provider Instructions for Treatment [facility]; [facility] Work Phone: reason for referral (narrative)No [facility] for [facility]: Family History No Family History Records FoundUnknown Family Member Name Dates Details Father Comments:brain cancer, passe d away at 51 Status:Active Maternal Grandfather Comments:heart issues ( of heart attack) Status:Active Maternal Grandmother Comments:heart issues ( of heart attack) Status:Active moms sister was in her 50s b reast can and moms brothers daughter breastcancer at27 Status:Active Mother Comments:vocal cord cancer, breast cancer, heart issues (had 2 stents placed)- she was in her 70s- with breast and vocal cords- she ultimately of complication from chemo Status:Active Paternal Grandfather Comments:unsure Status:Active Paternal Grandmother Comments:unsure Status:Active Unknown Family Member Name Dates Details Father Comments:brain cancer, passe d away at 51 Status:Active Maternal Grandfather Comments:heart issues ( of heart attack) Status:Active Maternal Grandmother Comments:heart issues ( of heart attack) Status:Active moms sister was in her 50s b [place] can and moms brothers daughter breastcancer at27 Status:Active Mother Comments:vocal cord cancer, breast cancer, heart issues (had 2 stents placed)- she was in her 70s- with breast and vocal cords- she ultimately of complication from chemo Status:Active Paternal Grandfather Comments:unsure Status:Active Paternal Grandmother Comments:unsure Status:Active Unknown Family Member Name Dates Details Father Comments:brain cancer, passe d away at 51 Status:Active Maternal Grandfather Comments:heart issues ( of heart attack) Status:Active Maternal Grandmother Comments:heart issues ( of heart attack) Status:Active moms sister was in her 50s b [place] can and moms brothers daughter breastcancer at27 Status:Active Mother Comments:vocal cord cancer, breast cancer, heart issues (had 2 stents placed)- she was in her 70s- with breast and vocal cords- she ultimately of complication from chemo Status:Active Paternal Grandfather Comments:unsure Status:Active Paternal Grandmother Comments:unsure Status:Active Unknown Family Member Name Dates Details Father Comments:brain cancer, passe d away at 51 Status:Active Maternal Grandfather Comments:heart issues ( of heart attack) Status:Active Maternal Grandmother Comments:heart issues ( of heart attack) Status:Active moms sister was in her 50s b [place] can and moms brothers daughter breastcancer at27 Status:Active Mother Comments:vocal cord cancer, breast cancer, heart issues (had 2 stents placed)- she was in her 70s- with breast and vocal cords- she ultimately of complication from chemo Status:Active Paternal Grandfather Comments:unsure Status:Active Paternal Grandmother Comments:unsure Status:Active Unknown Family Member Name Dates Details Father Comments:brain cancer, passe d away at 51 Status:Active Maternal Grandfather Comments:heart issues ( of heart attack) Status:Active Maternal Grandmother Comments:heart issues ( of heart attack) Status:Active moms sister was in her 50s b re[place] can and moms brothers daughter breastcancer at27 Status:Active Mother Comments:vocal cord cancer, breast cancer, heart issues (had 2 stents placed)- she was in her 70s- with breast and vocal cords- she ultimately of complication from chemo Status:Active Paternal Grandfather Comments:unsure Status:Active Paternal Grandmother Comments:unsure Status:Active Unknown Family Member Name Dates Details Father Comments:brain cancer, passe d away at 51 Status:Active Maternal Grandfather Comments:heart issues ( of heart attack) Status:Active Maternal Grandmother Comments:heart issues ( of heart attack) Status:Active moms sister was in her 50s b re[place] can and moms brothers daughter breastcancer at27 Status:Active Mother Comments:vocal cord cancer, breast cancer, heart issues (had 2 stents placed)- she was in her 70s- with breast and vocal cords- she ultimately of complication from chemo Status:Active Paternal Grandfather Comments:unsure Status:Active Paternal Grandmother Comments:unsure Status:Active Unknown Family Member Name Dates Details Father Comments:brain cancer, passe d away at 51 Status:Active Maternal Grandfather Comments:heart issues ( of heart attack) Status:Active Maternal Grandmother Comments:heart issues ( of heart attack) Status:Active moms sister was in her 50s b re[place] can and moms brothers daughter breastcancer at27 Status:Active Mother Comments:vocal cord cancer, breast cancer, heart issues (had 2 stents placed)- she was in her 70s- with breast and vocal cords- she ultimately of complication from chemo Status:Active Paternal Grandfather Comments:unsure Status:Active Paternal Grandmother Comments:unsure Status:Active Unknown Family Member Name Dates Details Father Comments:brain cancer, passe d away at 51 Status:Active Maternal Grandfather Comments:heart issues ( of heart attack) Status:Active Maternal Grandmother Comments:heart issues ( of heart attack) Status:Active moms sister was in her 50s b reast can and moms brothers daughter breastcancer at27 Status:Active Mother Comments:vocal cord cancer, breast cancer, heart issues (had 2 stents placed)- she was in her 70s- with breast and vocal cords- she ultimately of complication from chemo Status:Active Paternal Grandfather Comments:unsure Status:Active Paternal Grandmother Comments:unsure Status:Active Unknown Family Member Name Dates Details Father Comments:brain cancer, passe d away at 51 Status:Active Maternal Grandfather Comments:heart issues ( of heart attack) Status:Active Maternal Grandmother Comments:heart issues ( of heart attack) Status:Active moms sister was in her 50s b reast can and moms brothers daughter breastcancer at27 Status:Active Mother Comments:vocal cord cancer, breast cancer, heart issues (had 2 stents placed)- she was in her 70s- with breast and vocal cords- she ultimately of complication from chemo Status:Active Paternal Grandfather Comments:unsure Status:Active Paternal Grandmother Comments:unsure Status:Active Unknown Family Member Name Dates Details Father Comments:brain cancer, passe d away at 51 Status:Active Maternal Grandfather Comments:heart issues ( of heart attack) Status:Active Maternal Grandmother Comments:heart issues ( of heart attack) Status:Active moms sister was in her 50s b reast can and moms brothers daughter breastcancer at27 Status:Active Mother Comments:vocal cord cancer, breast cancer, heart issues (had 2 stents placed)- she was in her 70s- with breast and vocal cords- she ultimately of complication from chemo Status:Active Paternal Grandfather Comments:unsure Status:Active Paternal Grandmother Comments:unsure Status:Active Unknown Family Member Name Dates Details Father Comments:brain cancer, passe d away at 51 Status:Active Maternal Grandfather Comments:heart issues ( of heart attack) Status:Active Maternal Grandmother Comments:heart issues ( of heart attack) Status:Active moms sister was in her 50s b reast can and moms brothers daughter breastcancer at27 Status:Active Mother Comments:vocal cord cancer, breast cancer, heart issues (had 2 stents placed)- she was in her 70s- with breast and vocal cords- she ultimately of complication from chemo Status:Active Paternal Grandfather Comments:unsure Status:Active Paternal Grandmother Comments:unsure Status:Active Unknown Family Member Name Dates Details Father Comments:brain cancer, passe d away at 51 Status:Active Maternal Grandfather Comments:heart issues ( of heart attack) Status:Active Maternal Grandmother Comments:heart issues ( of heart attack) Status:Active moms sister was in her 50s b reast can and moms brothers daughter breastcancer at27 Status:Active Mother Comments:vocal cord cancer, breast cancer, heart issues (had 2 stents placed)- she was in her 70s- with breast and vocal cords- she ultimately of complication from chemo Status:Active Paternal Grandfather Comments:unsure Status:Active Paternal Grandmother Comments:unsure Status:Active Unknown Family Member Name Dates Details Father Comments:brain cancer, passe d away at 51 Status:Active Maternal Grandfather Comments:heart issues ( of heart attack) Status:Active Maternal Grandmother Comments:heart issues ( of heart attack) Status:Active moms sister was in her 50s b reast can and moms brothers daughter breastcancer at27 Status:Active Mother Comments:vocal cord cancer, breast cancer, heart issues (had 2 stents placed)- she was in her 70s- with breast and vocal cords- she ultimately of complication from chemo Status:Active Paternal Grandfather Comments:unsure Status:Active Paternal Grandmother Comments:unsure Status:Active Unknown Family Member Name Dates Details Father Comments:brain cancer, passe d away at 51 Status:Active Maternal Grandfather Comments:heart issues ( of heart attack) Status:Active Maternal Grandmother Comments:heart issues ( of heart attack) Status:Active moms sister was in her 50s b reast can and moms brothers daughter breastcancer at27 Status:Active Mother Comments:vocal cord cancer, breast cancer, heart issues (had 2 stents placed)- she was in her 70s- with breast and vocal cords- she ultimately of complication from chemo Status:Active Paternal Grandfather Comments:unsure Status:Active Paternal Grandmother Comments:unsure Status:Active Unknown Family Member Name Dates Details Father Comments:brain cancer, passe d away at 51 Status:Active Maternal Grandfather Comments:heart issues ( of heart attack) Status:Active Maternal Grandmother Comments:heart issues ( of heart attack) Status:Active moms sister was in her 50s b reast can and moms brothers daughter breastcancer at27 Status:Active Mother Comments:vocal cord cancer, breast cancer, heart issues (had 2 stents placed)- she was in her 70s- with breast and vocal cords- she ultimately of complication from chemo Status:Active Paternal Grandfather Comments:unsure Status:Active Paternal Grandmother Comments:unsure Status:Active Unknown Family Member Name Dates Details Father Comments:brain cancer passe d away at 51 Status:Active Maternal Grandfather Comments:heart issues ( of heart attack) Status:Active Maternal Grandmother Comments:heart issues ( of heart attack) Status:Active moms sister was in her 50s b reast can and moms brothers daughter breastcancer at27 Status:Active Mother Comments:vocal cord cancer, breast cancer, heart issues (had 2 stents placed)- she was in her 70s- with breast and vocal cords- she ultimately of complication from chemo Status:Active Paternal Grandfather Comments:unsure Status:Active Paternal Grandmother Comments:unsure Status:Active Unknown Family Member Name Dates Details Father Comments:brain cancer passe d away at 51 Status:Active Maternal Grandfather Comments:heart issues ( of heart attack) Status:Active Maternal Grandmother Comments:heart issues ( of heart attack) Status:Active moms sister was in her 50s b reast can and moms brothers daughter breastcancer at27 Status:Active Mother Comments:vocal cord cancer, breast cancer, heart issues (had 2 stents placed)- she was in her 70s- with breast and vocal cords- she ultimately of complication from chemo Status:Active Paternal Grandfather Comments:unsure Status:Active Paternal Grandmother Comments:unsure Status:Active Unknown Family Member Name Dates Details Father Comments:brain cancer, passe d away at 51 Status:Active Maternal Grandfather Comments:heart issues ( of heart attack) Status:Active Maternal Grandmother Comments:heart issues ( of heart attack) Status:Active moms sister was in her 50s b avat can and moms brothers daughter breastcancer at27 Status:Active Mother Comments:vocal cord cancer, breast cancer, heart issues (had 2 stents placed)- she was in her 70s- with breast and vocal cords- she ultimately of complication from chemo Status:Active Paternal Grandfather Comments:unsure Status:Active Paternal Grandmother Comments:unsure Status:Active Unknown Family Member Name Dates Details Father Comments:brain cancer, passe d away at 51 Status:Active Maternal Grandfather Comments:heart issues ( of heart attack) Status:Active Maternal Grandmother Comments:heart issues ( of heart attack) Status:Active moms sister was in her 50s b avat can and moms brothers daughter breastcancer at27 Status:Active Mother Comments:vocal cord cancer, breast cancer, heart issues (had 2 stents placed)- she was in her 70s- with breast and vocal cords- she ultimately of complication from chemo Status:Active Paternal Grandfather Comments:unsure Status:Active Paternal Grandmother Comments:unsure Status:Active Unknown Family Member Name Dates Details Father Comments:brain cancer, passe d away at 51 Status:Active Maternal Grandfather Comments:heart issues ( of heart attack) Status:Active Maternal Grandmother Comments:heart issues ( of heart attack) Status:Active moms sister was in her 50s b avat can and moms brothers daughter breastcancer at27 Status:Active Mother Comments:vocal cord cancer, breast cancer, heart issues (had 2 stents placed)- she was in her 70s- with breast and vocal cords- she ultimately of complication from chemo Status:Active Paternal Grandfather Comments:unsure Status:Active Paternal Grandmother Comments:unsure Status:Active Unknown Family Member Name Dates Details Father Comments:brain cancer, passe d away at 51 Status:Active Maternal Grandfather Comments:heart issues ( of heart attack) Status:Active Maternal Grandmother Comments:heart issues ( of heart attack) Status:Active moms sister was in her 50s b avat can and moms brothers daughter breastcancer at27 Status:Active Mother Comments:vocal cord cancer, breast cancer, heart issues (had 2 stents placed)- she was in her 70s- with breast and vocal cords- she ultimately of complication from chemo Status:Active Paternal Grandfather Comments:unsure Status:Active Paternal Grandmother Comments:unsure Status:Active Relationship Condition Age at Onset Recorded Date/T margaret mother Cardiac disease Unknown Disorder of thyroid Unknown Malignant neoplasm of breast Unknown aunt Malignant neoplasm of breast Unknown Unknown Family Member Name Dates Details Father Comments:brain cancer, passe d away at 51 Status:Active Maternal Grandfather Comments:heart issues ( of heart attack) Status:Active Maternal Grandmother Comments:heart issues ( of heart attack) Status:Active moms sister was in her 50s b reast can and moms brothers daughter breastcancer at27 Status:Active Mother Comments:vocal cord cancer, breast cancer, heart issues (had 2 stents placed)- she was in her 70s- with breast and vocal cords- she ultimately of complication from chemo Status:Active Paternal Grandfather Comments:unsure Status:Active Paternal Grandmother Comments:unsure Status:Active Unknown Family Member Name Dates Details Father Comments:brain cancer, passe d away at 51 Status:Active Maternal Grandfather Comments:heart issues ( of heart attack) Status:Active Maternal Grandmother Comments:heart issues ( of heart attack) Status:Active moms sister was in her 50s b reast can and moms brothers daughter breastcancer at27 Status:Active Mother Comments:vocal cord cancer, breast cancer, heart issues (had 2 stents placed)- she was in her 70s- with breast and vocal cords- she ultimately of complication from chemo Status:Active Paternal Grandfather Comments:unsure Status:Active Paternal Grandmother Comments:unsure Status:Active Unknown Family Member Name Dates Details Father Comments:brain cancer, passe d away at 51 Status:Active Maternal Grandfather Comments:heart issues ( of heart attack) Status:Active Maternal Grandmother Comments:heart issues ( of heart attack) Status:Active moms sister was in her 50s b reast can and moms brothers daughter breastcancer at27 Status:Active Mother Comments:vocal cord cancer, breast cancer, heart issues (had 2 stents placed)- she was in her 70s- with breast and vocal cords- she ultimately of complication from chemo Status:Active Paternal Grandfather Comments:unsure Status:Active Paternal Grandmother Comments:unsure Status:Active Unknown Family Member Name Dates Details Father Comments:brain cancer, passe d away at 51 Status:Active Maternal Grandfather Comments:heart issues ( of heart attack) Status:Active Maternal Grandmother Comments:heart issues ( of heart attack) Status:Active moms sister was in her 50s b reast can and moms brothers daughter breastcancer at27 Status:Active Mother Comments:vocal cord cancer, breast cancer, heart issues (had 2 stents placed)- she was in her 70s- with breast and vocal cords- she ultimately of complication from chemo Status:Active Paternal Grandfather Comments:unsure Status:Active Paternal Grandmother Comments:unsure Status:Active Unknown Family Member Name Dates Details Father Comments:brain cancer, passe d away at 51 Status:Active Maternal Grandfather Comments:heart issues ( of heart attack) Status:Active Maternal Grandmother Comments:heart issues ( of heart attack) Status:Active moms sister was in her 50s b reast can and moms brothers daughter breastcancer at27 Status:Active Mother Comments:vocal cord cancer, breast cancer, heart issues (had 2 stents placed)- she was in her 70s- with breast and vocal cords- she ultimately of complication from chemo Status:Active Paternal Grandfather Comments:unsure Status:Active Paternal Grandmother Comments:unsure Status:Active Unknown Family Member Name Dates Details Father Comments:brain cancer, passe d away at 51 Status:Active Maternal Grandfather Comments:heart issues ( of heart attack) Status:Active Maternal Grandmother Comments:heart issues ( of heart attack) Status:Active moms sister was in her 50s b reast can and moms brothers daughter breastcancer at27 Status:Active Mother Comments:vocal cord cancer, breast cancer, heart issues (had 2 stents placed)- she was in her 70s- with breast and vocal cords- she ultimately of complication from chemo Status:Active Paternal Grandfather Comments:unsure Status:Active Paternal Grandmother Comments:unsure Status:Active Unknown Family Member Name Dates Details Father Comments:brain cancer, passe d away at 51 Status:Active Maternal Grandfather Comments:heart issues ( of heart attack) Status:Active Maternal Grandmother Comments:heart issues ( of heart attack) Status:Active moms sister was in her 50s b reast can and moms brothers daughter breastcancer at27 Status:Active Mother Comments:vocal cord cancer, breast cancer, heart issues (had 2 stents placed)- she was in her 70s- with breast and vocal cords- she ultimately of complication from chemo Status:Active Paternal Grandfather Comments:unsure Status:Active Paternal Grandmother Comments:unsure Status:Active Unknown Family Member Name Dates Details Father Comments:brain cancer, passe d away at 51 Status:Active Maternal Grandfather Comments:heart issues ( of heart attack) Status:Active Maternal Grandmother Comments:heart issues ( of heart attack) Status:Active moms sister was in her 50s b reast can and moms brothers daughter breastcancer at27 Status:Active Mother Comments:vocal cord cancer, breast cancer, heart issues (had 2 stents placed)- she was in her 70s- with breast and vocal cords- she ultimately of complication from chemo Status:Active Paternal Grandfather Comments:unsure Status:Active Paternal Grandmother Comments:unsure Status:Active Unknown Family Member Name Dates Details Father Comments:brain cancer, passe d away at 51 Status:Active Maternal Grandfather Comments:heart issues ( of heart attack) Status:Active Maternal Grandmother Comments:heart issues ( of heart attack) Status:Active moms sister was in her 50s b reast can and moms brothers daughter breastcancer at27 Status:Active Mother Comments:vocal cord cancer, breast cancer, heart issues (had 2 stents placed)- she was in her 70s- with breast and vocal cords- she ultimately of complication from chemo Status:Active Paternal Grandfather Comments:unsure Status:Active Paternal Grandmother Comments:unsure Status:Active Unknown Family Member Name Dates Details Father Comments:brain cancer, passe d away at 51 Status:Active Maternal Grandfather Comments:heart issues ( of heart attack) Status:Active Maternal Grandmother Comments:heart issues ( of heart attack) Status:Active moms sister was in her 50s b reast can and moms brothers daughter breastcancer at27 Status:Active Mother Comments:vocal cord cancer, breast cancer, heart issues (had 2 stents placed)- she was in her 70s- with breast and vocal cords- she ultimately of complication from chemo Status:Active Paternal Grandfather Comments:unsure Status:Active Paternal Grandmother Comments:unsure Status:Active Instructions Name Dates Details Elevated hemoglobin A1c : Ho w to access health information online Indication:Elevated hemoglobin A1c Elevated hemoglobin A1c : Ho w to access health information online - Detail Indication:Elevated hemoglobin A1c Elevated hemoglobin A1c : José Luis corona Instructions Indication:Elevated hemoglobin A1c Non-smoker : How to access h ealth information online Indication:Non-smoker Non-smoker : How to access h ealth information online - Detail Indication:Non-smoker Sore throat : Patient Instru ctions Indication:Sore throat BMI 28.0-28.9,adult : How to access health information online Indication:BMI 28.0-28.9,adult BMI 28.0-28.9,adult : How to access health information online - Detail Indication:BMI 28.0-28.9,adult BMI 28.0-28.9,adult : Patien t Instructions Indication:BMI 28.0-28.9,adult [facility] : Ho w to access health information online Indication:[facility] : Ho w to access health information online - Detail Indication:[facility] : José Luis corona Instructions Indication:[facility] Oropharyngeal dysphagia : Ho w to access health information online Indication:Oropharyngeal dysphagia Oropharyngeal dysphagia : Ho w to access health information online - Detail Indication:Oropharyngeal dysphagia Oropharyngeal dysphagia : José Luis corona Instructions Indication:Oropharyngeal dysphagia Anxiety : How to access heal th information online Indication:Anxiety Anxiety : How to access heal th information online - Detail Indication:Anxiety Anxiety : Patient Instructio ns Indication:Anxiety Fatigue : Patient Instructio ns Indication:Fatigue Fatigue : How to access heal th information online Indication:Fatigue Fatigue : How to access heal th information online - Detail Indication:Fatigue Name Dates Details Elevated hemoglobin A1c : Ho w to access health information online Indication:Elevated hemoglobin A1c Elevated hemoglobin A1c : Ho w to access health information online - Detail Indication:Elevated hemoglobin A1c Elevated hemoglobin A1c : Pa tient Instructions Indication:Elevated hemoglobin A1c Non-smoker : How to access h ealth information online Indication:Non-smoker Non-smoker : How to access h ealth information online - Detail Indication:Non-smoker Sore throat : Patient Instru ctions Indication:Sore throat BMI 28.0-28.9,adult : How to access health information online Indication:BMI 28.0-28.9,adult BMI 28.0-28.9,adult : How to access health information online - Detail Indication:BMI 28.0-28.9,adult BMI 28.0-28.9,adult : Patien t Instructions Indication:BMI 28.0-28.9,adult [facility] : Ho w to access health information online Indication:[facility] : Ho w to access health information online - Detail Indication:[facility] : Pa tient Instructions Indication:[facility] Oropharyngeal dysphagia : Ho w to access health information online Indication:Oropharyngeal dysphagia Oropharyngeal dysphagia : Ho w to access health information online - Detail Indication:Oropharyngeal dysphagia Oropharyngeal dysphagia : Pa tient Instructions Indication:Oropharyngeal dysphagia Anxiety : How to access heal th information online Indication:Anxiety Anxiety : How to access heal th information online - Detail Indication:Anxiety Anxiety : Patient Instructio ns Indication:Anxiety Fatigue : Patient Instructio ns Indication:Fatigue Fatigue : How to access heal th information online Indication:Fatigue Fatigue : How to access heal th information online - Detail Indication:Fatigue Name Dates Details Patient Instructions Indication:[facility] Start:09-Apr-2019 Instruction Type:Provider Instructions for Treatment How to access health informa tion online Indication:Itching Start:02-Mar-2019 Instruction Type:Patient Education How to access health informa tion online - Detail Indication:Itching Start:02-Mar-2019 Instruction Type:Patient Education Patient Instructions Indication:Itching Start:02-Mar-2019 Instruction Type:Provider Instructions for Treatment How to access health informa tion online Indication:Thyroid Nodule Start:03-Nov-2018 Instruction Type:Patient Education How to access health informa tion online - Detail Indication:Thyroid Nodule Start:03-Nov-2018 Instruction Type:Patient Education Patient Instructions Indication:Thyroid Nodule Start:03-Nov-2018 Instruction Type:Provider Instructions for Treatment How to access health informa tion online Indication:Elevated hemoglobin A1c Start:19-Oct-2017 Instruction Type:Patient Education How to access health informa tion online - Detail Indication:Elevated hemoglobin A1c Start:19-Oct-2017 Instruction Type:Patient Education Patient Instructions Indication:Elevated hemoglobin A1c Start:19-Oct-2017 Instruction Type:Provider Instructions for Treatment How to access health informa tion online Indication:Non-smoker Start:09-Jun-2017 Instruction Type:Patient Education How to access health informa tion online - Detail Indication:Non-smoker Start:09-Jun-2017 Instruction Type:Patient Education Patient Instructions Indication:Sore throat Start:09-Jun-2017 Instruction Type:Provider Instructions for Treatment How to access health informa tion online Indication:BMI 28.0-28.9,adult Start:23-May-2017 Instruction Type:Patient Education How to access health informa tion online - Detail Indication:BMI 28.0-28.9,adult Start:23-May-2017 Instruction Type:Patient Education Patient Instructions Indication:BMI 28.0-28.9,adult Start:23-May-2017 Instruction Type:Provider Instructions for Treatment How to access health informa tion online Indication:[facility] Start:09-Nov-2016 Instruction Type:Patient Education How to access health informa tion online - Detail Indication:[facility] Start:09-Nov-2016 Instruction Type:Patient Education Patient Instructions Indication:[facility] Start:09-Nov-2016 Instruction Type:Provider Instructions for Treatment How to access health informa tion online Indication:Oropharyngeal dysphagia Start:06-Sep-2016 Instruction Type:Patient Education How to access health informa tion online - Detail Indication:Oropharyngeal dysphagia Start:06-Sep-2016 Instruction Type:Patient Education Patient Instructions Indication:Oropharyngeal dysphagia Start:06-Sep-2016 Instruction Type:Provider Instructions for Treatment How to access health informa tion online Indication:Anxiety Start:08-Dec-2015 Instruction Type:Patient Education How to access health informa tion online - Detail Indication:Anxiety Start:08-Dec-2015 Instruction Type:Patient Education Patient Instructions Indication:Anxiety Start:08-Dec-2015 Instruction Type:Provider Instructions for Treatment Patient Instructions Indication:Anxiety Start:06-Nov-2014 Instruction Type:Provider Instructions for Treatment Patient Instructions Indication:Fatigue Start:28-Aug-2014 Instruction Type:Provider Instructions for Treatment How to access health informa tion online Indication:Fatigue Start:26-Jul-2014 Instruction Type:Patient Education How to access health informa tion online - Detail Indication:Fatigue Start:26-Jul-2014 Instruction Type:Patient Education Patient Instructions Indication:Fatigue Start:26-Jul-2014 Instruction Type:Provider Instructions for Treatment Name Dates Details Patient Instructions Indication:[facility] Start:09-Apr-2019 Instruction Type:Provider Instructions for Treatment How to access health informa tion online Indication:Itching Start:02-Mar-2019 Instruction Type:Patient Education How to access health informa tion online - Detail Indication:Itching Start:02-Mar-2019 Instruction Type:Patient Education Patient Instructions Indication:Itching Start:02-Mar-2019 Instruction Type:Provider Instructions for Treatment How to access health informa tion online Indication:Thyroid Nodule Start:03-Nov-2018 Instruction Type:Patient Education How to access health informa tion online - Detail Indication:Thyroid Nodule Start:03-Nov-2018 Instruction Type:Patient Education Patient Instructions Indication:Thyroid Nodule Start:03-Nov-2018 Instruction Type:Provider Instructions for Treatment How to access health informa tion online Indication:Elevated hemoglobin A1c Start:19-Oct-2017 Instruction Type:Patient Education How to access health informa tion online - Detail Indication:Elevated hemoglobin A1c Start:19-Oct-2017 Instruction Type:Patient Education Patient Instructions Indication:Elevated hemoglobin A1c Start:19-Oct-2017 Instruction Type:Provider Instructions for Treatment How to access health informa tion online Indication:Non-smoker Start:09-Jun-2017 Instruction Type:Patient Education How to access health informa tion online - Detail Indication:Non-smoker Start:09-Jun-2017 Instruction Type:Patient Education Patient Instructions Indication:Sore throat Start:09-Jun-2017 Instruction Type:Provider Instructions for Treatment How to access health informa tion online Indication:BMI 28.0-28.9,adult Start:23-May-2017 Instruction Type:Patient Education How to access health informa tion online - Detail Indication:BMI 28.0-28.9,adult Start:23-May-2017 Instruction Type:Patient Education Patient Instructions Indication:BMI 28.0-28.9,adult Start:23-May-2017 Instruction Type:Provider Instructions for Treatment How to access health informa tion online Indication:[facility] Start:09-Nov-2016 Instruction Type:Patient Education How to access health informa tion online - Detail Indication:[facility] Start:09-Nov-2016 Instruction Type:Patient Education Patient Instructions Indication:[facility] Start:09-Nov-2016 Instruction Type:Provider Instructions for Treatment How to access health informa tion online Indication:Oropharyngeal dysphagia Start:06-Sep-2016 Instruction Type:Patient Education How to access health informa tion online - Detail Indication:Oropharyngeal dysphagia Start:06-Sep-2016 Instruction Type:Patient Education Patient Instructions Indication:Oropharyngeal dysphagia Start:06-Sep-2016 Instruction Type:Provider Instructions for Treatment How to access health informa tion online Indication:Anxiety Start:08-Dec-2015 Instruction Type:Patient Education How to access health informa tion online - Detail Indication:Anxiety Start:08-Dec-2015 Instruction Type:Patient Education Patient Instructions Indication:Anxiety Start:08-Dec-2015 Instruction Type:Provider Instructions for Treatment Patient Instructions Indication:Anxiety Start:06-Nov-2014 Instruction Type:Provider Instructions for Treatment Patient Instructions Indication:Fatigue Start:28-Aug-2014 Instruction Type:Provider Instructions for Treatment How to access health informa tion online Indication:Fatigue Start:26-Jul-2014 Instruction Type:Patient Education How to access health informa tion online - Detail Indication:Fatigue Start:26-Jul-2014 Instruction Type:Patient Education Patient Instructions Indication:Fatigue Start:26-Jul-2014 Instruction Type:Provider Instructions for Treatment Name Dates Details How to access health informa tion online Indication:Fatigue Start:06-Aug-2019 Instruction Type:Patient Education How to access health informa tion online - Detail Indication:Fatigue Start:06-Aug-2019 Instruction Type:Patient Education Patient Instructions Indication:Fatigue Start:06-Aug-2019 Instruction Type:Provider Instructions for Treatment Patient Instructions Indication:[facility] Start:09-Apr-2019 Instruction Type:Provider Instructions for Treatment How to access health informa tion online Indication:Itching Start:02-Mar-2019 Instruction Type:Patient Education How to access health informa tion online - Detail Indication:Itching Start:02-Mar-2019 Instruction Type:Patient Education Patient Instructions Indication:Itching Start:02-Mar-2019 Instruction Type:Provider Instructions for Treatment How to access health informa tion online Indication:Thyroid Nodule Start:03-Nov-2018 Instruction Type:Patient Education How to access health informa tion online - Detail Indication:Thyroid Nodule Start:03-Nov-2018 Instruction Type:Patient Education Patient Instructions Indication:Thyroid Nodule Start:03-Nov-2018 Instruction Type:Provider Instructions for Treatment How to access health informa tion online Indication:Elevated hemoglobin A1c Start:19-Oct-2017 Instruction Type:Patient Education How to access health informa tion online - Detail Indication:Elevated hemoglobin A1c Start:19-Oct-2017 Instruction Type:Patient Education Patient Instructions Indication:Elevated hemoglobin A1c Start:19-Oct-2017 Instruction Type:Provider Instructions for Treatment How to access health informa tion online Indication:Non-smoker Start:09-Jun-2017 Instruction Type:Patient Education How to access health informa tion online - Detail Indication:Non-smoker Start:09-Jun-2017 Instruction Type:Patient Education Patient Instructions Indication:Sore throat Start:09-Jun-2017 Instruction Type:Provider Instructions for Treatment How to access health informa tion online Indication:BMI 28.0-28.9,adult Start:23-May-2017 Instruction Type:Patient Education How to access health informa tion online - Detail Indication:BMI 28.0-28.9,adult Start:23-May-2017 Instruction Type:Patient Education Patient Instructions Indication:BMI 28.0-28.9,adult Start:23-May-2017 Instruction Type:Provider Instructions for Treatment How to access health informa tion online Indication:[facility] Start:09-Nov-2016 Instruction Type:Patient Education How to access health informa tion online - Detail Indication:[facility] Start:09-Nov-2016 Instruction Type:Patient Education Patient Instructions Indication:[facility] Start:09-Nov-2016 Instruction Type:Provider Instructions for Treatment How to access health informa tion online Indication:Oropharyngeal dysphagia Start:06-Sep-2016 Instruction Type:Patient Education How to access health informa tion online - Detail Indication:Oropharyngeal dysphagia Start:06-Sep-2016 Instruction Type:Patient Education Patient Instructions Indication:Oropharyngeal dysphagia Start:06-Sep-2016 Instruction Type:Provider Instructions for Treatment How to access health informa tion online Indication:Anxiety Start:08-Dec-2015 Instruction Type:Patient Education How to access health informa tion online - Detail Indication:Anxiety Start:08-Dec-2015 Instruction Type:Patient Education Patient Instructions Indication:Anxiety Start:08-Dec-2015 Instruction Type:Provider Instructions for Treatment Patient Instructions Indication:Anxiety Start:06-Nov-2014 Instruction Type:Provider Instructions for Treatment Patient Instructions Indication:Fatigue Start:28-Aug-2014 Instruction Type:Provider Instructions for Treatment How to access health informa tion online Indication:Fatigue Start:26-Jul-2014 Instruction Type:Patient Education How to access health informa tion online - Detail Indication:Fatigue Start:26-Jul-2014 Instruction Type:Patient Education Patient Instructions Indication:Fatigue Start:26-Jul-2014 Instruction Type:Provider Instructions for Treatment Name Dates Details How to Access Health Informa tion Online using Patient Portal and [employer]rd [employer] Apps Indication:Cough Start:02-Jun-2020 Instruction Type:Patient Education Patient Instructions Indication:Cough Start:02-Jun-2020 Instruction Type:Provider Instructions for Treatment Patient Instructions Indication:Cough Start:26-May-2020 Instruction Type:Provider Instructions for Treatment How to Access Health Informa tion Online using Patient Portal and [employer] Apps Indication:Cough Start:26-May-2020 Instruction Type:Patient Education How to access health informa tion online Indication:Fatigue Start:06-Aug-2019 Instruction Type:Patient Education How to access health informa tion online - Detail Indication:Fatigue Start:06-Aug-2019 Instruction Type:Patient Education Patient Instructions Indication:Fatigue Start:06-Aug-2019 Instruction Type:Provider Instructions for Treatment Patient Instructions Indication:[facility] Start:09-Apr-2019 Instruction Type:Provider Instructions for Treatment How to access health informa tion online Indication:Itching Start:02-Mar-2019 Instruction Type:Patient Education How to access health informa tion online - Detail Indication:Itching Start:02-Mar-2019 Instruction Type:Patient Education Patient Instructions Indication:Itching Start:02-Mar-2019 Instruction Type:Provider Instructions for Treatment How to access health informa tion online Indication:Thyroid Nodule Start:03-Nov-2018 Instruction Type:Patient Education How to access health informa tion online - Detail Indication:Thyroid Nodule Start:03-Nov-2018 Instruction Type:Patient Education Patient Instructions Indication:Thyroid Nodule Start:03-Nov-2018 Instruction Type:Provider Instructions for Treatment How to access health informa tion online Indication:Elevated hemoglobin A1c Start:19-Oct-2017 Instruction Type:Patient Education How to access health informa tion online - Detail Indication:Elevated hemoglobin A1c Start:19-Oct-2017 Instruction Type:Patient Education Patient Instructions Indication:Elevated hemoglobin A1c Start:19-Oct-2017 Instruction Type:Provider Instructions for Treatment How to access health informa tion online Indication:Non-smoker Start:09-Jun-2017 Instruction Type:Patient Education How to access health informa tion online - Detail Indication:Non-smoker Start:09-Jun-2017 Instruction Type:Patient Education Patient Instructions Indication:Sore throat Start:09-Jun-2017 Instruction Type:Provider Instructions for Treatment How to access health informa tion online Indication:BMI 28.0-28.9,adult Start:23-May-2017 Instruction Type:Patient Education How to access health informa tion online - Detail Indication:BMI 28.0-28.9,adult Start:23-May-2017 Instruction Type:Patient Education Patient Instructions Indication:BMI 28.0-28.9,adult Start:23-May-2017 Instruction Type:Provider Instructions for Treatment How to access health informa tion online Indication:[facility] Start:09-Nov-2016 Instruction Type:Patient Education How to access health informa tion online - Detail Indication:[facility] Start:09-Nov-2016 Instruction Type:Patient Education Patient Instructions Indication:[facility] Start:09-Nov-2016 Instruction Type:Provider Instructions for Treatment How to access health informa tion online Indication:Oropharyngeal dysphagia Start:06-Sep-2016 Instruction Type:Patient Education How to access health informa tion online - Detail Indication:Oropharyngeal dysphagia Start:06-Sep-2016 Instruction Type:Patient Education Patient Instructions Indication:Oropharyngeal dysphagia Start:06-Sep-2016 Instruction Type:Provider Instructions for Treatment How to access health informa tion online Indication:Anxiety Start:08-Dec-2015 Instruction Type:Patient Education How to access health informa tion online - Detail Indication:Anxiety Start:08-Dec-2015 Instruction Type:Patient Education Patient Instructions Indication:Anxiety Start:08-Dec-2015 Instruction Type:Provider Instructions for Treatment Patient Instructions Indication:Anxiety Start:06-Nov-2014 Instruction Type:Provider Instructions for Treatment Patient Instructions Indication:Fatigue Start:28-Aug-2014 Instruction Type:Provider Instructions for Treatment How to access health informa tion online Indication:Fatigue Start:26-Jul-2014 Instruction Type:Patient Education How to access health informa tion online - Detail Indication:Fatigue Start:26-Jul-2014 Instruction Type:Patient Education Patient Instructions Indication:Fatigue Start:26-Jul-2014 Instruction Type:Provider Instructions for Treatment Name Dates Details How to access health informa tion online Indication:Itching Start:02-Mar-2019 Instruction Type:Patient Education How to access health informa tion online - Detail Indication:Itching Start:02-Mar-2019 Instruction Type:Patient Education Patient Instructions Indication:Itching Start:02-Mar-2019 Instruction Type:Provider Instructions for Treatment How to access health informa tion online Indication:Thyroid Nodule Start:03-Nov-2018 Instruction Type:Patient Education How to access health informa tion online - Detail Indication:Thyroid Nodule Start:03-Nov-2018 Instruction Type:Patient Education Patient Instructions Indication:Thyroid Nodule Start:03-Nov-2018 Instruction Type:Provider Instructions for Treatment How to access health informa tion online Indication:Elevated hemoglobin A1c Start:19-Oct-2017 Instruction Type:Patient Education How to access health informa tion online - Detail Indication:Elevated hemoglobin A1c Start:19-Oct-2017 Instruction Type:Patient Education Patient Instructions Indication:Elevated hemoglobin A1c Start:19-Oct-2017 Instruction Type:Provider Instructions for Treatment How to access health informa tion online Indication:Non-smoker Start:09-Jun-2017 Instruction Type:Patient Education How to access health informa tion online - Detail Indication:Non-smoker Start:09-Jun-2017 Instruction Type:Patient Education Patient Instructions Indication:Sore throat Start:09-Jun-2017 Instruction Type:Provider Instructions for Treatment How to access health informa tion online Indication:BMI 28.0-28.9,adult Start:23-May-2017 Instruction Type:Patient Education How to access health informa tion online - Detail Indication:BMI 28.0-28.9,adult Start:23-May-2017 Instruction Type:Patient Education Patient Instructions Indication:BMI 28.0-28.9,adult Start:23-May-2017 Instruction Type:Provider Instructions for Treatment How to access health informa tion online Indication:[facility] Start:09-Nov-2016 Instruction Type:Patient Education How to access health informa tion online - Detail Indication:[facility] Start:09-Nov-2016 Instruction Type:Patient Education Patient Instructions Indication:[facility] Start:09-Nov-2016 Instruction Type:Provider Instructions for Treatment How to access health informa tion online Indication:Oropharyngeal dysphagia Start:06-Sep-2016 Instruction Type:Patient Education How to access health informa tion online - Detail Indication:Oropharyngeal dysphagia Start:06-Sep-2016 Instruction Type:Patient Education Patient Instructions Indication:Oropharyngeal dysphagia Start:06-Sep-2016 Instruction Type:Provider Instructions for Treatment How to access health informa tion online Indication:Anxiety Start:08-Dec-2015 Instruction Type:Patient Education How to access health informa tion online - Detail Indication:Anxiety Start:08-Dec-2015 Instruction Type:Patient Education Patient Instructions Indication:Anxiety Start:08-Dec-2015 Instruction Type:Provider Instructions for Treatment Patient Instructions Indication:Anxiety Start:06-Nov-2014 Instruction Type:Provider Instructions for Treatment Patient Instructions Indication:Fatigue Start:28-Aug-2014 Instruction Type:Provider Instructions for Treatment How to access health informa tion online Indication:Fatigue Start:26-Jul-2014 Instruction Type:Patient Education How to access health informa tion online - Detail Indication:Fatigue Start:26-Jul-2014 Instruction Type:Patient Education Patient Instructions Indication:Fatigue Start:26-Jul-2014 Instruction Type:Provider Instructions for Treatment Name Dates Details Patient Instructions Indication:Cough Start:26-May-2020 Instruction Type:Provider Instructions for Treatment How to Access Health Informa tion Online using Patient Portal and [employer] Apps Indication:Cough Start:26-May-2020 Instruction Type:Patient Education How to access health informa tion online Indication:Fatigue Start:06-Aug-2019 Instruction Type:Patient Education How to access health informa tion online - Detail Indication:Fatigue Start:06-Aug-2019 Instruction Type:Patient Education Patient Instructions Indication:Fatigue Start:06-Aug-2019 Instruction Type:Provider Instructions for Treatment Patient Instructions Indication:[facility] Start:09-Apr-2019 Instruction Type:Provider Instructions for Treatment How to access health informa tion online Indication:Itching Start:02-Mar-2019 Instruction Type:Patient Education How to access health informa tion online - Detail Indication:Itching Start:02-Mar-2019 Instruction Type:Patient Education Patient Instructions Indication:Itching Start:02-Mar-2019 Instruction Type:Provider Instructions for Treatment How to access health informa tion online Indication:Thyroid Nodule Start:03-Nov-2018 Instruction Type:Patient Education How to access health informa tion online - Detail Indication:Thyroid Nodule Start:03-Nov-2018 Instruction Type:Patient Education Patient Instructions Indication:Thyroid Nodule Start:03-Nov-2018 Instruction Type:Provider Instructions for Treatment How to access health informa tion online Indication:Elevated hemoglobin A1c Start:19-Oct-2017 Instruction Type:Patient Education How to access health informa tion online - Detail Indication:Elevated hemoglobin A1c Start:19-Oct-2017 Instruction Type:Patient Education Patient Instructions Indication:Elevated hemoglobin A1c Start:19-Oct-2017 Instruction Type:Provider Instructions for Treatment How to access health informa tion online Indication:Non-smoker Start:09-Jun-2017 Instruction Type:Patient Education How to access health informa tion online - Detail Indication:Non-smoker Start:09-Jun-2017 Instruction Type:Patient Education Patient Instructions Indication:Sore throat Start:09-Jun-2017 Instruction Type:Provider Instructions for Treatment How to access health informa tion online Indication:BMI 28.0-28.9,adult Start:23-May-2017 Instruction Type:Patient Education How to access health informa tion online - Detail Indication:BMI 28.0-28.9,adult Start:23-May-2017 Instruction Type:Patient Education Patient Instructions Indication:BMI 28.0-28.9,adult Start:23-May-2017 Instruction Type:Provider Instructions for Treatment How to access health informa tion online Indication:[facility] Start:09-Nov-2016 Instruction Type:Patient Education How to access health informa tion online - Detail Indication:[facility] Start:09-Nov-2016 Instruction Type:Patient Education Patient Instructions Indication:[facility] Start:09-Nov-2016 Instruction Type:Provider Instructions for Treatment How to access health informa tion online Indication:Oropharyngeal dysphagia Start:06-Sep-2016 Instruction Type:Patient Education How to access health informa tion online - Detail Indication:Oropharyngeal dysphagia Start:06-Sep-2016 Instruction Type:Patient Education Patient Instructions Indication:Oropharyngeal dysphagia Start:06-Sep-2016 Instruction Type:Provider Instructions for Treatment How to access health informa tion online Indication:Anxiety Start:08-Dec-2015 Instruction Type:Patient Education How to access health informa tion online - Detail Indication:Anxiety Start:08-Dec-2015 Instruction Type:Patient Education Patient Instructions Indication:Anxiety Start:08-Dec-2015 Instruction Type:Provider Instructions for Treatment Patient Instructions Indication:Anxiety Start:06-Nov-2014 Instruction Type:Provider Instructions for Treatment Patient Instructions Indication:Fatigue Start:28-Aug-2014 Instruction Type:Provider Instructions for Treatment How to access health informa tion online Indication:Fatigue Start:26-Jul-2014 Instruction Type:Patient Education How to access health informa tion online - Detail Indication:Fatigue Start:26-Jul-2014 Instruction Type:Patient Education Patient Instructions Indication:Fatigue Start:26-Jul-2014 Instruction Type:Provider Instructions for Treatment Name Dates Details How to access health informa tion online Indication:Thyroid Nodule Start:03-Nov-2018 Instruction Type:Patient Education How to access health informa tion online - Detail Indication:Thyroid Nodule Start:03-Nov-2018 Instruction Type:Patient Education Patient Instructions Indication:Thyroid Nodule Start:03-Nov-2018 Instruction Type:Provider Instructions for Treatment How to access health informa tion online Indication:Elevated hemoglobin A1c Start:19-Oct-2017 Instruction Type:Patient Education How to access health informa tion online - Detail Indication:Elevated hemoglobin A1c Start:19-Oct-2017 Instruction Type:Patient Education Patient Instructions Indication:Elevated hemoglobin A1c Start:19-Oct-2017 Instruction Type:Provider Instructions for Treatment How to access health informa tion online Indication:Non-smoker Start:09-Jun-2017 Instruction Type:Patient Education How to access health informa tion online - Detail Indication:Non-smoker Start:09-Jun-2017 Instruction Type:Patient Education Patient Instructions Indication:Sore throat Start:09-Jun-2017 Instruction Type:Provider Instructions for Treatment How to access health informa tion online Indication:BMI 28.0-28.9,adult Start:23-May-2017 Instruction Type:Patient Education How to access health informa tion online - Detail Indication:BMI 28.0-28.9,adult Start:23-May-2017 Instruction Type:Patient Education Patient Instructions Indication:BMI 28.0-28.9,adult Start:23-May-2017 Instruction Type:Provider Instructions for Treatment How to access health informa tion online Indication:[facility] Start:09-Nov-2016 Instruction Type:Patient Education How to access health informa tion online - Detail Indication:[facility] Start:09-Nov-2016 Instruction Type:Patient Education Patient Instructions Indication:[facility] Start:09-Nov-2016 Instruction Type:Provider Instructions for Treatment How to access health informa tion online Indication:Oropharyngeal dysphagia Start:06-Sep-2016 Instruction Type:Patient Education How to access health informa tion online - Detail Indication:Oropharyngeal dysphagia Start:06-Sep-2016 Instruction Type:Patient Education Patient Instructions Indication:Oropharyngeal dysphagia Start:06-Sep-2016 Instruction Type:Provider Instructions for Treatment How to access health informa tion online Indication:Anxiety Start:08-Dec-2015 Instruction Type:Patient Education How to access health informa tion online - Detail Indication:Anxiety Start:08-Dec-2015 Instruction Type:Patient Education Patient Instructions Indication:Anxiety Start:08-Dec-2015 Instruction Type:Provider Instructions for Treatment Patient Instructions Indication:Anxiety Start:06-Nov-2014 Instruction Type:Provider Instructions for Treatment Patient Instructions Indication:Fatigue Start:28-Aug-2014 Instruction Type:Provider Instructions for Treatment How to access health informa tion online Indication:Fatigue Start:26-Jul-2014 Instruction Type:Patient Education How to access health informa tion online - Detail Indication:Fatigue Start:26-Jul-2014 Instruction Type:Patient Education Patient Instructions Indication:Fatigue Start:26-Jul-2014 Instruction Type:Provider Instructions for Treatment Name Dates Details How to Access Health Informa tion Online using Patient Portal and [employer] Apps Indication:Cough Start:02-Jun-2020 Instruction Type:Patient Education Patient Instructions Indication:Cough Start:02-Jun-2020 Instruction Type:Provider Instructions for Treatment Patient Instructions Indication:Cough Start:26-May-2020 Instruction Type:Provider Instructions for Treatment How to Access Health Informa tion Online using Patient Portal and [employer] Apps Indication:Cough Start:26-May-2020 Instruction Type:Patient Education How to access health informa tion online Indication:Fatigue Start:06-Aug-2019 Instruction Type:Patient Education How to access health informa tion online - Detail Indication:Fatigue Start:06-Aug-2019 Instruction Type:Patient Education Patient Instructions Indication:Fatigue Start:06-Aug-2019 Instruction Type:Provider Instructions for Treatment Patient Instructions Indication:[facility] Start:09-Apr-2019 Instruction Type:Provider Instructions for Treatment How to access health informa tion online Indication:Itching Start:02-Mar-2019 Instruction Type:Patient Education How to access health informa tion online - Detail Indication:Itching Start:02-Mar-2019 Instruction Type:Patient Education Patient Instructions Indication:Itching Start:02-Mar-2019 Instruction Type:Provider Instructions for Treatment How to access health informa tion online Indication:Thyroid Nodule Start:03-Nov-2018 Instruction Type:Patient Education How to access health informa tion online - Detail Indication:Thyroid Nodule Start:03-Nov-2018 Instruction Type:Patient Education Patient Instructions Indication:Thyroid Nodule Start:03-Nov-2018 Instruction Type:Provider Instructions for Treatment How to access health informa tion online Indication:Elevated hemoglobin A1c Start:19-Oct-2017 Instruction Type:Patient Education How to access health informa tion online - Detail Indication:Elevated hemoglobin A1c Start:19-Oct-2017 Instruction Type:Patient Education Patient Instructions Indication:Elevated hemoglobin A1c Start:19-Oct-2017 Instruction Type:Provider Instructions for Treatment How to access health informa tion online Indication:Non-smoker Start:09-Jun-2017 Instruction Type:Patient Education How to access health informa tion online - Detail Indication:Non-smoker Start:09-Jun-2017 Instruction Type:Patient Education Patient Instructions Indication:Sore throat Start:09-Jun-2017 Instruction Type:Provider Instructions for Treatment How to access health informa tion online Indication:BMI 28.0-28.9,adult Start:23-May-2017 Instruction Type:Patient Education How to access health informa tion online - Detail Indication:BMI 28.0-28.9,adult Start:23-May-2017 Instruction Type:Patient Education Patient Instructions Indication:BMI 28.0-28.9,adult Start:23-May-2017 Instruction Type:Provider Instructions for Treatment How to access health informa tion online Indication:[facility] Start:09-Nov-2016 Instruction Type:Patient Education How to access health informa tion online - Detail Indication:[facility] Start:09-Nov-2016 Instruction Type:Patient Education Patient Instructions Indication:[facility] Start:09-Nov-2016 Instruction Type:Provider Instructions for Treatment How to access health informa tion online Indication:Oropharyngeal dysphagia Start:06-Sep-2016 Instruction Type:Patient Education How to access health informa tion online - Detail Indication:Oropharyngeal dysphagia Start:06-Sep-2016 Instruction Type:Patient Education Patient Instructions Indication:Oropharyngeal dysphagia Start:06-Sep-2016 Instruction Type:Provider Instructions for Treatment How to access health informa tion online Indication:Anxiety Start:08-Dec-2015 Instruction Type:Patient Education How to access health informa tion online - Detail Indication:Anxiety Start:08-Dec-2015 Instruction Type:Patient Education Patient Instructions Indication:Anxiety Start:08-Dec-2015 Instruction Type:Provider Instructions for Treatment Patient Instructions Indication:Anxiety Start:06-Nov-2014 Instruction Type:Provider Instructions for Treatment Patient Instructions Indication:Fatigue Start:28-Aug-2014 Instruction Type:Provider Instructions for Treatment How to access health informa tion online Indication:Fatigue Start:26-Jul-2014 Instruction Type:Patient Education How to access health informa tion online - Detail Indication:Fatigue Start:26-Jul-2014 Instruction Type:Patient Education Patient Instructions Indication:Fatigue Start:26-Jul-2014 Instruction Type:Provider Instructions for Treatment Summary Purpose Advance Directives No Advanced Directives Records Found Advance Directive Response Recorded Date/ Time Living Will No February 03 2:36pm Power of Air Intelligence Specialist No February 03 2:36pm Advance Directive Response Recorded Date/ Time Living Will No February 16 10:46am Power of Air Intelligence Specialist No February 16, 2022 10:46am Advance Directive Response Recorded Date/ Time Living Will No February 16 9:46am Power of Air Intelligence Specialist No February 16, 2022 9:46am Advance Directive Response Recorded Date/ Time Living Will No October 12, 2022 6: 35pm Power of Air Intelligence Specialist No October 12, 2022 6:35pm Advance Directive Response Recorded Date/ Time Living Will No January 24 10:12pm Power of Air Intelligence Specialist No January 24 023 10:12pm Advance Directive Response Recorded Date/ Time Living Will No January 24 3 9:12pm Power of Air Intelligence Specialist No January 24 023 9:12pm Chief Complaint and Reason for Visit Chief Complaint LOWER BACK PAIN/RX H ERE FATTY LIVER, THYROID NODULE flank pain FLANK PAIN Chief Complaint LOWER BACK PAIN/RX H ERE FATTY LIVER, THYROID NODULE flank pain FLANK PAIN CYSTO URETEROSCOPE LASER STENT BASKE EXT RT Chief Complaint flank pain FLANK PAIN CYSTO URETEROSCOPE LASER STENT BASKE EXT RT SCREENING Chief Complaint SCREENING PARESSTHESIA BILAT UPPER PARESSTHESIA BILAT UPPER Chief Complaint PARESSTHESIA BILAT U PPER PARESSTHESIA BILAT UPPER CHEST PAIN Chief Complaint CHEST PAIN KIDNEY STONE Chief Complaint KIDNEY STONE CALCULUS OF KIDNEY THYROID NODULE SCREENING Chief Complaint SCREENING IRON DEFICIENCY Chief Complaint Admit Date XRAY December 04, 2024 12:5 5pm Reason for Referral Specialty Diagnoses / Procedures Referred By Edgardo hale Referred To Contact Radiology Diagnoses Wellness examination Procedures CT cardiac scoring wo IV contrast Sandeep Guerrero DO [address] [facility] [address] [place] [address] Referral ID Status Reason Start Date Expiration Date Visits Requested Visits Authorized [id number] Authorized Perform Procedure 07/27/2023 07/26/2024 1 1 Additional Source Comments INFORMATION SOURCE (unrecogn ized section and content) DATE CREATED AUTHOR 12/01/2021 [facility] DATE CREATED AUTHOR AUTHOR'S ORGANIZ ATION 10/14/2022 [facility] DATE CREATED AUTHOR AUTHOR'S ORGANIZ ATION 08/11/2023 [facility] DATE CREATED AUTHOR AUTHOR'S ORGANIZ ATION 04/14/2025 [facility] Care Teams (unrecognized sec tion and content) Team Status: Active Member Role Status Dates Dr. Sandeep Guerrero DO Family Provider Active Dr. Sandeep Guerrero DO Primary Care Provider Active Team Status: Active Member Role Status Dates Dr. Sandeep Guerrero DO Primary Care Provide r, Referring Provider, Other Provider Active Dr. Cooper Aldana DO Attending Provider Active Team Status: Inactive Member Role Status Dates Dr. Sandeep Guerrero DO Primary Care Provide r, Attending Provider, Referring Provider Active Team Status: Inactive Member Role Status Dates Dr. Sandeep Guerrero DO Primary Care Provider, Attending Amy walker Active Team Status: Inactive Member Role Status Dates Dr. Sandeep Guerrero DO Primary Care Provider Active Nghia Tran MD Emergency Provider Active Team Status: Inactive Member Role Status Dates Dr. Sandeep Guerrero DO Primary Care Provider Active Nghia Tran MD Attending Provider, Emergency Provid er Active Team Status: Inactive Member Role Status Dates Dr. Sandeep Guerrero DO Primary Care Provider Active Dr. Ridge Bates DO Emergency Provider Active Team Status: Inactive Member Role Status Dates Dr. Sandeep Guerrero DO Primary Care Provider Active Dr. Keerthi Barnes MD Attending Provider, Referring P aaron Active Team Status: Inactive Member Role Status Dates Dr. Sandeep Guerrero DO Primary Care Provider Active Dr. 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 Sandeep Guerrero DO Primary Care Provider Active Dr. Gael Winkler MD Attending Provider, Referring Provider Active Team Status: Inactive Member Role Status Dates Dr. Sandeep Guerrero DO Primary Care Provider Active Start: December 04, 2024 End: December 04, 2024 Dr. Mahendra Nuñez MD Attending Provider Active S tart: December 04, 2024 End: December 04, 2024 Goals (unrecognized section and content) Goals may be documented in a n alternate sectionGoals may be documented in an alternate sectionGoals may be documented in an alternate sectionGoals may be documented in an alternate sectionGoals may be documented in an alternate sectionGoals may be documented in an alternate section Reason for Visit (unrecogniz ed section and content) Specialty Diagnoses / Procedures Referred By Contac t Referred To Contact Radiology Diagnoses Wellness examination Procedures CT cardiac scoring wo IV contrast Sandeep Guerrero DO [address] [facility] [address] [place] [address] Referral ID Status Reason Start Date Expiration Date Visits Requested Visits Authorized [id number] Authorized Perform Procedure 07/27/2023 07/26/2024 1 1 FOR RECORDS PERTAINING TO PATIENTS WHO ARE OR HAVE BEEN ENROLLED IN A CHEMICAL DEPENDENCY/SUBSTANCEABUSE PROGRAM, SOME INFORMATION MAY BE OMITTED. This clinical summary was aggregated from multiple sources. Caution should be exercised in using it in the provision of clinical care. This summary normalizes information from multiple sources, and as a consequence, information in this document may materially change the coding, format and clinical context of patient data. In addition, data may be omitted in some cases. CLINICAL DECISIONS SHOULD BE BASED ON THE PRIMARY CLINICAL RECORDS. [employer] [facility]. provides no warranty or guarantee of the accuracy or completeness of information in this document.
== END | disposition home or self-care (01) ==
LOC: CT 19:07
PROVIDERS: PCP Internal Medicine; Referring Provider Internal Medicine; Visit Provider Internal Medicine
DX: K44.9 Diaphragmatic hernia without obstruction or gangrene (principal); N28.1 Cyst of kidney, acquired
CPT/HCPCS: 71250

== ENCOUNTER → 2025-04-23 | Outpatient (CLI) | payer OTHER, SELFPAY ==
--- NOTE | 2025-04-23 12:30 | BI_ITS ---
EXAM: SCRN MAMM (CAD)W/FAITH BILAT DATE: 04/23/2025 CLINICAL HISTORY: F, Age 55 y/o , SCREENING BILATERAL MAMMO - TECHNIQUE: Procedure Code: [id number] Modality: MG Procedure: SCRN MAMM (CAD)W/FAITH BILAT COMPARISON: Prior exam(s) were compared FINDINGS: TISSUE DENSITY: The breasts are heterogeneously dense, which may obscure small masses. Bilateral Breast Mammographic Findings: Left breast: There is questionable architectural distortion in the upper left breast at mid depth (MLO frame 44). No reported prior surgery history. Recommend diagnostic left breast mammogram spot compression MLO view, full field true lateral view and possible targeted left breast ultrasound scanning the upper left breast from 9:00 to 3:00 locations about 4 cm from the nipple. Right breast: No significant masses, calcifications or other abnormalities are identified. BI/SCRN MAMM (CAD)W/FAITH BILAT IMPRESSION: Questionable architectural distortion in the upper left breast at mid depth (ML O frame 44). No reported prior surgery history. Recommend diagnostic left breast mammogram spot compression MLO view, full fiel d true lateral view and possible targeted left breast ultrasound scanning the upper left breast from 9:00 to 3:00 locations ab out 4 cm from the nipple. No mammographic evidence of malignancy in the right breast. OVERALL FINAL ASSESSMENT BI-RADS 0: INCOMPLETE - NEED ADDITIONAL IMAGING EVALUATION. RECOMMENDATION: Additional Views obtained/call backs Additional Recommendation none A letter with findings and recommendations will be mailed to the patient. Reading Location: [id number]
== END | disposition home or self-care (01) ==
PROVIDERS: PCP Internal Medicine; Referring Provider Internal Medicine; Visit Provider Internal Medicine
DX: Z12.31 Encounter for screening mammogram for malignant neoplasm of breast (principal)
CPT/HCPCS: 77063; 77067

== ENCOUNTER → 2025-05-14 | Outpatient (CLI) | payer OTHER, SELFPAY ==
--- NOTE | 2025-05-14 09:27 | US_ITS ---
PROCEDURE: BREAST LIMITED UNILATERAL 05/14/2025 REASON FOR EXAM: F, Age 55 y/o , ABN MAMM COMPARISON: Prior mammogram dated April 23, 2025 and prior mammogram done earlier in the day.. TECHNIQUE: Procedure Code: [id number] Modality: US Procedure: BREAST LIMITED UNILATERAL. The upper half of the left breast was examined with ultrasound. FINDINGS: No sonographic abnormality is seen. US/Breast Limited Unilateral IMPRESSION: No sonographic abnormality is seen. BI-RADS 1: NEGATIVE RECOMMENDATION: Routine annual follow-up in 1 Year Reading Location: [id number]
--- NOTE | 2025-05-14 09:27 | BI_ITS ---
EXAM: DIAG MAMM W/CAD, UNILAT 05/14/2025 CLINICAL HISTORY: F, Age 55 y/o , L ABN MAMM TECHNIQUE: Procedure Code: [id number] Modality: Procedure: DIAG MAMM W/CAD, UNILAT.. Compression spot views and 90 degree lateral view were obtained. COMPARISON: Prior exam(s) dated April 23, 2025.. FINDINGS: TISSUE DENSITY: The breasts are heterogeneously dense, which may obscure small masses. Bilateral Breast Mammographic Findings: No significant masses, calcifications or other abnormalities are identified. BI/DIAG MAMM W/CAD, UNILAT IMPRESSION: No mammographic abnormality is seen. Sonographic correlation recommended. OVERALL FINAL ASSESSMENT BI-RADS 0: INCOMPLETE - NEED ADDITIONAL IMAGING EVALUATION. RECOMMENDATION: Ultrasound Recommended Additional Recommendation none A letter with findings and recommendations will be mailed to the patient. Reading Location: [id number]
== END | disposition home or self-care (01) ==
LOC: OPBI 09:24
PROVIDERS: PCP Internal Medicine; Referring Provider Internal Medicine; Visit Provider Internal Medicine
DX: R92.8 Other abnormal and inconclusive findings on diagnostic imaging of breast (principal)
CPT/HCPCS: 76642; 77061; 77065; G0279